=== PATIENT | female | born 1940 | race Caucasian/White ===

== ENCOUNTER → 2018-01-12 14:31 | Outpatient (CLI) | payer MEDICARE, SELFPAY ==
--- NOTE | 2018-01-12 14:32 | US_ITS ---
STUDY: SUPERFICIAL ULTRASOUND - LEFT CHEST LUMP REASON FOR EXAM: Female, 77 years old. Left chest lump region of mastectomy 40 years ago. TECHNIQUE: A superficial ultrasound was performed with real-time and static garcia-scale imaging. COMPARISON: None. FINDINGS: There is a subcutaneous soft tissue lesion measuring 0.3 x 0.2 x 0.3 cm. There is no evidence of underlying edema or visualized vascularity. US/Chest IMPRESSION: In the region of a incision line of the mastectomy for 40 years ago there is a subcutaneous lesion for which direct clinical observation should be made. Consider possible small sebaceous cyst. Given clinical history follow-up is suggested. Electronically Signed: Debora Stewart MD at 9:19 EDT Tel , Service support ,
== END ==
PROVIDERS: Family Provider Family Medicine; PCP Family Medicine; Visit Provider Nurse Practitioner Women's Health
DX: R22.2 Localized swelling, mass and lump, trunk (principal); Z85.3 Personal history of malignant neoplasm of breast; Z90.13 Acquired absence of bilateral breasts and nipples
CPT/HCPCS: 76604

== ENCOUNTER 2018-03-20 10:29 | Emergency (ER) | payer MEDICARE, SELFPAY ==
[2018-03-20 10:30] VITALS: BP 143/70; PULSE 94; RESP 16; TEMP 36.7; O2SAT 98; BMI 24.1
--- NOTE | 2018-03-20 10:50 | CT_ITS ---
STUDY: CT ABDOMEN AND PELVIS WITHOUT CONTRAST REASON FOR EXAM: Female, 77 years old. One week history of nausea. The patient has a history of breast carcinoma and omental metastasis. RADIATION DOSAGE (If Supplied By Facility): CTDIvol = ( 7.35 ) mGy, DLP = ( 334.22 ) mGycm TECHNIQUE: Transaxial images were obtained from the dome of the diaphragm to the symphysis pubis without oral contrast, and without intravenous contrast. Sagittal and coronal images were reconstructed. Individualized dose optimization techniques were used for this CT. COMPARISON: Comparison is made with prior study dated September 23, 2016. FINDINGS: The visualized lung bases are unremarkable. The visualized portions of the heart are within normal limits. Normal liver. The patient is status post cholecystectomy. Normal spleen. Normal pancreas. Normal bilateral adrenal glands. Stable appearance of a 3 mm calculus in the midportion of the right ureter at the level of the L5 vertebrae. Normal left kidney. There is a small hiatal hernia. Normal small intestine. There are multiple colonic diverticula consistent with diverticulosis. There is non-visualization of the appendix. There is diffuse atherosclerotic calcification of the abdominal aorta, without a demonstrated aneurysm. Normal inferior vena cava. Normal retroperitoneum. Normal urinary bladder. There is absence of the uterus consistent with a prior hysterectomy. Normal abdominal wall. There are diffuse degenerative changes of the visualized lumbar spine. Levoscoliosis. CT/Abdomen/Pelvis without Cont IMPRESSION: Biopsy September 3 mm calculus in the midportion of the right ureter. This is unchanged. Electronically Signed: Clif Peraza MD at 11:30 EDT Tel [phone], Service support ,
[2018-03-20 11:09] LABS: Absolute Lymphocyte Count 0.78 X10^3/ul (0.83-4.51); Basophil# 0.01 X10^3/uL; Basophil% 0.1 % (0-1); Eosinophil# 0.07 X10^3/uL; Eosinophils% 0.9 % (0-5); Hematocrit 40.2 % (37-47); Lymphocyte # 0.78 X10^3/ul (4.0); Lymphocyte % 10.4 % (19-41); Mean Corp Hgb Conc 32.3 g/gl (32-36); Mean Corpuscular Hgb 30.8 pg (27.0-32.0); Mean Corpuscular Volume 95.3 fL (81-99); Mean Platelet Vol. 8.8 fl (6.2-12.0); Monocyte# 0.56 X10^3/uL; Monocyte% 7.5 % (0-10); Neutrophil # 6.04 X10^3/uL (2.7-7.7); POSITIVE COUNT NO; POSITIVE DIFFERENTIAL NO; POSITIVE MORPHOLOGY NO; Platelet Count 197 K/mm3 (150-450); RBC Distribution Width CV 12.8 % (11.6-14.6); RBC Distribution Width SD 44.1 fl (35.1-43.9); Red Blood Count 4.22 M/mm3 (4.2-5.4); White Blood Count 7.5 K/mm3 (4.4-11.0)
[2018-03-20 11:13] LABS: Bacteria 0 SEEN /hpf (None Seen); Mucous, Urine 0 SEEN /hpf (<or=2+); White Blood Cells 0 SEEN /hpf (0-5)
[2018-03-20 11:16] LABS: Color, Urine Yellow (Yellow); Glucose, Dipstick Normal (Normal); Ketone-Dipstick Negative (Negative); Leukocyte Esterase-Dipstick 25 /ul (Negative); Nitrite-Dipstick Negative (Negative); Occult Blood-Urine 10 /ul (Negative); Protein-Dipstick Negative (Negative); Urine Bilirubin Dipstick Negative (Negative); Urine Clarity Clear (Clear); Urine Urobilinogen Normal (Normal)
[2018-03-20 11:22] LABS: Squamous Epithelial Cells - UA 0-5 SEEN /hpf (5-10)
[2018-03-20 11:23] LABS: ALB/GLOB Ratio 1.2 RATIO (0.9-2.4); AST(SGOT) 28 U/L (15-37); Alanine Aminotransfer ALT/SGPT 27 U/L (13-56); Albumin, Serum 4.1 g/dL (3.2-5.0); Alkaline Phosphatase 110 U/L (45-117); Anion Gap 8 (5-15); BUN 38 mg/dL (7-18); BUN/Creat Ratio 24.1 RATIO (10-20); Calcium,Total 9.5 mg/dL (8.5-10.1); Chloride 101 mmol/L (98-107); Creatinine, Serum 1.58 mg/dL (0.55-1.02); EST Glomerular Filtration Rate 34 mL/min (>60); Est Glom Filt Rate - Afr Amer 41 mL/min (>60); Estimated Creatinine Clearance 22.83 ml/min; Globulin 3.4 g/dL (2.2-4.2); Glucose 113 mg/dL (74-106); Potassium 4.4 mmol/L (3.5-5.1); Protein, Total 7.5 g/dL (6.4-8.2); Red Blood Cells-Urine 0-5 SEEN /hpf (0-5); Sodium Level 138 mmol/L (136-145)
--- NOTE | 2018-03-20 11:56 | ED.VISSUMM ---
- ER Visit Summary Date of Service: 03/20/18 Chief Complaint: Nausea History of Present Illness: The patient is a [address] Sandoval. She reports that she has nausea began approximately 1 week ago. Is gradually gotten worse. She has not vomited. She has not had diarrhea. Her last bowel was today and it was loose. She denies any abdominal pain. No dysuria or frequency. She reports that this is similar to 3 years ago when she had a small bowel obstruction. Physical Examination: Vitals: Stable. Afebrile. General: Well-nourished and well-developed. Head: Normocephalic atraumatic. Neck: Supple, no lymphadenopathy. No JVD. Nontender. Cardiovascular: Regular rate and rhythm. No murmurs. Respiratory: No respiratory distress. Clear to auscultation bilaterally. Abdominal: Soft, nontender, nondistended, normal bowel sounds. No guarding, rebound, or peritoneal signs. Back: Nontender. Extremities: Nontender, no edema. Skin: Normal color, no rash. Neurologic: Alert and oriented ?3. Cranial nerves II through XII are intact. Normal strength and sensation. Psych: Normal affect. Test Results: CT flank shows chronic changes. CBC is more for segment 4 is 81 on 610. Chem-7 is more for BUN of 38 and creatinine 1.58. Left is marked for total bili 1.10. UA is negative. Emergency Department Course and Treatment: Patient is resting comfortably without complaint. She refused nausea medication. Treatment Plan: Patient be discharged with Zofran. Instructed follow-up Dr. Sandoval in 3-5 days not improving. Return to the emergency department for any worsening symptoms. Disposition: To home in improved and stable condition. Impression: 1. Nausea. This note was generated with Smule dictation software. It may contain incorrect words, spelling, and punctuation that were not noted in review of the chart prior to signing ED Disposition - Plan for ED Patient: Disposition: Home or Assisted Living Chief Complaint: Nausea/Vomiting Instructions: ED Nausea Vomiting Prescriptions: Ondansetron [Zofran Odt] 4 mg PO Q8H PRN PRN #10 tablet PRN Reason: Nausea Referrals: Julius Sandoval MD [Primary Care Provider] - 3-5 Days if not improving
[2018-03-20 12:07] VITALS: BP 109/57; PULSE 77; RESP 18; O2SAT 98
== END 2018-03-20 12:07 | disposition home or self-care (01) ==
PROVIDERS: Emergency Provider Emergency Medicine; Family Provider Family Medicine; PCP Family Medicine
DX: R11.0 Nausea (principal); J45.909 Unspecified asthma, uncomplicated; I10 Essential (primary) hypertension; I50.9 Heart failure, unspecified; Z86.73 Personal history of transient ischemic attack (TIA), and cerebral infarction without residual deficits; Z85.42 Personal history of malignant neoplasm of other parts of uterus; Z85.3 Personal history of malignant neoplasm of breast
CPT/HCPCS: 74176; 80053; 81001; 85025; 99283; A4216

== ENCOUNTER → 2018-07-23 17:02 | Outpatient (CLI) | payer MEDICARE, SELFPAY | PROVIDERS: Family Provider Family Medicine; PCP Family Medicine; Referring Provider Obstetrics & Gynecology; Visit Provider Obstetrics & Gynecology | DX: R35.0 Frequency of micturition (principal) | CPT/HCPCS: 87077; 87086; 87088; 87186 ==

== ENCOUNTER 2019-07-15 11:20 | Day surgery (SDC) | payer MEDICARE, SELFPAY ==
--- NOTE | 2019-06-13 07:47 | HP.PCM_ITS ---
History and Physical Date of Admission: 06/17/19 HISTORY AND PHYSICAL ? Ruth Calvert 1940 ? REFERRING PHYSICIAN: ??Self, MD ? CHIEF COMPLAINT: ??Established Patient (Consult Fecal incontinence) ? HPI: The patient is a 78 year old female referred for endoscopy. ? notes a few days ago she had an episode of passing a large amount of mucous and stool from the rectum, and loss of stool control.???She does note that she is lactose intolerant, and prior to this episode she had ingested buttermilk, milk gravy, as well as several plums, tomatoes and peaches. ?She states over the last few days she has not had any more episodes of incontinence. ? ? Patient notes family history of GI malignancy.??The patient notes no upper GI co mplaints?currently. ? has??undergone prior endoscopy in [address] Latham without concerning findings at that time. ? Patient's past medical history is significant for TIA, essential tremor, hype rtension, congestive heart failure, mesenteric ischemia, Takotsubo cardiomyopathy, hiatal hernia, asthma, chronic kidney disease, history breast cancer, history skin cancer, history uterine cancer. ?She has had multiple abdominal surgeries. ?Denies problems with sedation in the past. ? ? PAST?MEDICAL?HISTORY PAST MEDICAL HISTORY Diagnosis Date ? Asthma ? ? CKD (chronic kidney disease) stage 3, GFR 30-59 ml/min (HCC) ? ? Congestive heart failure, unspecified 2002 ? Cardiology [facility] ? Diverticulosis of sigmoid ? ? External hemorrhoids without mention of complication ? ? Family history of malignant neoplasm of gastrointestinal tract ? ? Gastric polyps ? ? Gout ? ? Hiatal hernia ? ? History of breast cancer ? ? History of skin cancer ? ? History of uterine cancer ? ? cervical ? Internal hemorrhoids without mention of complication ? ? Iron deficiency anemia ? ? Osteopenia ? ? Restrictive cardiomyopathy (HCC) ? ? TIA (transient ischemic attack) ? ? right eye vision changes, carotid US reported as NL ? Unspecified essential hypertension since age 28 ? ? PAST?SURGICAL?HISTORY PAST SURGICAL HISTORY Procedure Laterality Date ? APPENDECTOMY ? ? ? CARDIAC CATH ? ? ? X--3 ? CATARACT EXT; EYEONICS IOL SYS ? ? ? COLONOSCOP W/ OR W/O [facility] SPEC ? [facility] 2007 ? Colonoscopy ? COLONOSCOP W/ OR W/O [facility] SPEC ? 06/23/11 ? COLONOSCOP W/ OR W/O [facility] SPEC ? 06/08/16 ? Colonoscopy (MAC) ? D&C, DIAG AND/OR THERAPEUTIC ? five ? Dilation & curettage ? DXA BONE DENSITY, AXIAL ? ? ? MASTECTOMY, RADICAL ? 1978 ? double ? REMOVAL GALLBLADDER ? 1983 ? REMOVAL OF OVARY(S) ? 1984 ? Oophorectomy ? REPAIR COMPL ROTATOR CUFF AVULSN,CHR ? 2003 ? right ? REPAIR OF RECTOCELE ? 1978 ? SMALL BOWEL ? 03/2015 ? MESENTERIC ISCHEMIA ? TOTAL ABDOM HYSTERECTOMY ? ? ? Hysterectomy, RAFIA ? VAGINAL HYSTERECTOMY ? 1967 ? Hysterectomy, vaginal? ? ? CURRENT?MEDICATIONS ? Current Outpatient Medications: predniSONE (DELTASONE) 10 mg tablet Take 4 tabs daily for 3 days, then 2 tabs daily for 3 days, then 1 tab daily for 3 days with food. Omeprazole 40 mg capsule Take 1 capsule by mouth once daily. (Patient taking differently: Take 40 mg by mouth twice a week. ) albuterol (PROVENTIL) 2.5 mg /3 mL (0.083 %) nebulizer solution Use 3 mL via nebulizer every 6 hours as needed for Wheezing/Shortness of Breath. Use over 5-15minutes. allopurinol (ZYLOPRIM) 100 mg tablet Take 2 tablets by mouth once daily. budesonide-formoterol (SYMBICORT) 160-4.5 mcg/actuation inhaler Inhale 2 Puffs as instructed twice daily. montelukast (SINGULAIR) 10 mg tablet Take 1 tablet by mouth daily at bedtime. losartan (COZAAR) 25 mg tablet Take 0.5 tablets by mouth once daily. spironolactone (ALDACTONE) 25 mg tablet Take 1 tablet by mouth twice daily. nitrofurantoin monohydrate and macrocrystal (MACROBID) 100 mg capsule Take 100 mg by mouth once daily. PRN. torsemide (DEMADEX) 10 mg tablet Take 10 mg by mouth once daily. aspirin, enteric coated (ECOTRIN LOW STRENGTH) 81 mg ORAL EC tablet Take 1 tablet by mouth once daily. dipyridamole(PERSANTINE 75 MG TAB) Take one(1) tablet two(2) times daily. albuterol (PROVENTIL) 2.5 mg /3 mL (0.083 %) nebulizer solution Use 3 mL via nebulizer every 4 hours as needed for Wheezing/Shortness of Breath. Use over 5-15minutes. zoster vaccine, recombinant, adjuvanted, (SHINGRIX) 50 mcg/0.5 mL injection Inject 0.5 mL intramuscularly now and repeat 2nd dose in 2-6 months albuterol HFA (VENTOLIN HFA) 90 mcg/actuation inhaler Inhale 2 Puffs as instructed every 4 hours as needed for Wheezing/Shortness of Breath. ? No current facility-administered medications for this visit.? ? ALLERGIES:?Benadryl [Diphenhydramine Hcl]; Sulfur Dioxide; Talwin [Pentazocine Lactate]; Valium [Diazepam]; Advair Diskus [Fluticasone Propion-Salmeterol]; Penicillins; Sulfa (Sulfonamide Antibiotics); Adhesive Tape (Rosins); Biaxin [Clarithromycin] ? PERSONAL HISTORY:? SOCIAL?HISTORY Social History ??Socioeconomic History ?Marital status: ?Spouse name: Russell ?Number of children: 3 ?Years of education: Not on file ?Highest education level: Not on file ??Occupational History ?Employer: [employer] ?Comment: Retired ??Social Needs ?Financial resource strain: Not on file ?Food insecurity: ?Worry: Not on file ?Inability: Not on file ?Transportation needs: ?Medical: Not on file ?Non-medical: Not on file ??Tobacco Use ?Smoking status: Never Smoker ?Smokeless tobacco: Never Used ??Substance and Sexual Activity ?Alcohol use: No ?Drug use: No ?Sexual activity: Yes ?Partners: Male ??Lifestyle ?Physical activity: ?Days per week: Not on file ?Minutes per session: Not on file ?Stress: Not on file ??Relationships ?Social connections: ?Talks on phone: Not on file ?Gets together: Not on file ?Attends taoism service: Not on file ?Active member of club or organization: Not on file ?Attends meetings of clubs or organizations: Not on file ?Relationship status: Not on file ?Intimate partner violence: ?Fear of current or ex partner: Not on file ?Emotionally abused: Not on file ?Physically abused: Not on file ?Forced sexual activity: Not on file ??Other Topics ?Concerns: ?Not on file ??Social History Narrative ?3 children ?Lives [place] ?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 FAMILY HISTORY:? FAMILY?HISTORY FAMILY HISTORY Problem Relation Age of Onset ? Cancer Mother ?throat, stomach, colon age 69 ? unclear primary by description ? Thyroid Mother ? ? Heart Father ? age 57 ? Hypertension Father ? ? Stroke Paternal Grandfather ? ? Stroke Paternal Grandmother ? ? Diabetes Brother ? ? Coronary Artery Disease Maternal Grandfather ? ? Cancer Maternal Grandmother ?pancreatic ? REVIEW OF SYMPTOMS: ??The review of systems data was entered by the nurse and reviewed by me ? Nursing Notes: Shaheen Nichols ?06/03/2019 ?2:58 PM ?Signed REVIEW OF SYSTEMS: ?General:???The patient denies fatigue, denies weight loss, denies weight gain, denies feeling hot, and denies feelings of cold. ?Eyes: ?The patient denies glaucoma, NOTES eye injury/surgery, wears glasses or contacts. ?Ear/Nose/Throat: ?The patient NOTES allergies, denies hayfever, denies ear infections, and denies bloody noses. ?Cardiovascular: ?The patient denies chest pain, NOTES heart disease, NOTES high blood pressure,denies cardiac stent, denies prior heart attack, denies irregular heart beat, denies high cholesterol, ?denies poor circulation, denies heart failure, other cardiac issues, denies claudication, denies cold feet, denies peripheral arterial stent. ?Respiratory: ?The patient denies tuberculosis, NOTES pneumonia, denies frequent cough, denies pulmonary embolism, NOTES shortness of breath, and denies coughing up blood. ?Gastrointestinal: ?The patient denies difficulty swallowing, NOTES acid reflux, denies ulcers, denies vomiting, denies jaundice/hepatitis, denies gallbladder problems, denies black or tarry stools, denies hemorrhoids, denies bleeding from rectum, denies diverticulitis, denies constipation, denies diarrhea, NOTES loss of stool control, and denies hernias. ?Kidney/Bladder: ?The patient NOTES kidney stones, denies urine infections, and denies bloody urine. ?Skin: ?The patient NOTES a history of skin cancer, denies bleeding/changing moles, and denies a history of skin rash. ?Neurologic: ?The patient denies a history of epilepsy/convulsions, denies headaches, denies head/spinal injuries, and NOTES stroke/TIA. ?Psychiatric: ?The patient denies psychiatric medications, denies depression, and denies voices, denies substance abuse. ?Endocrine: ?The patient denies thyroid disorders, denies diabetes, and denies hormonal problems. ?Hematologic: ?The patient NOTES a history of bruising, denies bleeding, and denies anemia, denies blood clots. ?Infections: ?The patient NOTES a history of measles and mumps, denies rheumatic fever, and denies sexually transmitted diseases. ?Musculoskeletal: ?The patient denies back pain/injury, denies back problems, denies sciatica, NOTES knee/foot trouble, NOTES arthritis, or NOTES gout. ? ? When was patient's last Mammogram screening? Not known ? ?Last Colonoscopy: ? Shaheen Ncihols? I have confirmed and edited as necessary, the PFSH and ROS obtained by others. ? PHYSICAL EXAMINATION: ? General: ?The patient is 78 year old female, well nourished, well hydrated in no acute distress. ?The patient is oriented to time, place, and person. ? VITALS:?Blood pressure 136/52, pulse 101, temperature 36.4 ?C (97.6 ?F), height 154.9 cm (5' 1), weight 63.1 kg (139 lb 3.2 oz), SpO2 99 %.?Body mass index is 26.3 kg/m?.? ? HEENT: ?Normal cephalic, ataumatic, pupils are equally round, sclera are anicteric, mucous membranes are moist, oropharynx is clear. ?Neck has no masses, asymmetry or lymphadenopathy. ? ? Respiratory: ?Clear to auscultation and percussion. ?Normal respiratory excursion and pattern. ? Cardiac: ?Examination is regular rate and rhythm. ?Normal S1/S2 ? Abdominal exam: ?Soft, nontender, ?with no palpable masses. ?No hepatosplenomegaly. ?No palpable hernias. ? Extremities: ?no clubbing, cyanosis or edema. ?No adenopathy. ? LABORATORY VALUES: As Noted ? RADIOLOGIC STUDIES: ?As Noted ? ? Assessment ? IMPRESSION:?episode of fecal incontinence and mucus in stool. ?Family history of GI malignancy ? PLAN: ?I have reviewed my findings with the surgeon. ?Will plan for lower?endoscopy. ??We discussed the risks and benefits of the planned endoscopy. ?I have informed the patient that complications can occur including failure to complete the endoscopy and perforation. ?The patient had the opportunity to ask questions concerning the planned endoscopy. ?My staff has also explained the procedure to the patient in understandable terms and has given the patient printed material concerning the procedure. ?The patient freely consents to surgery. ? I plan to use?Miralax/Dulcolax?bowel preparation ? We will plan for Monitored Anesthetic Care. ? ? Diagnoses:?(R15.9, ?R15.2) Incontinence of feces with fecal urgency ?(primary encounter diagnosis) (R19.5) Mucus in stool (Z80.0) Family history of colon cancer ? ? Angelina Dunne PA-C
[2019-07-15 11:45] VITALS: BP 114/51; PULSE 76; RESP 18; TEMP 37.1; O2SAT 99; BMI 26.4
[2019-07-15] MEDS: Lactated Ringers 1,000 ML 100 ML IV (12:22)
[2019-07-15 14:01] VITALS: BP 109/49; BP 114/51; PULSE 72; RESP 16; TEMP 36.4; O2SAT 100
--- NOTE | 2019-07-15 14:04 | OP.ENDO_ITS ---
07/15/2019 Julius Sandoval [address] [place] [address] Re : Colonoscopy procedure for Ruth Changig Dear Dr. Sandoval This procedure was performed on Monday, July 15, 2019. My impressions and recommendations are as follows: Impressions : - Diverticulosis in the sigmoid colon. - Non-bleeding internal hemorrhoids. - No specimens collected. Recommendations : - Return to primary care physician PRN. - No repeat colonoscopy due to age. - Continue present medications. My findings are described in the full procedure note, which is enclosed. If I can be of further assistance, please feel free to contact me at Doctor phone number(s): , Work: . Sincerely, MD Nancy Wilson MD 07/15/2019 2:04:34 PM This report has been signed electronically.
[2019-07-15 14:05] VITALS: BP 106/42; BP 114/51; PULSE 74; RESP 16; O2SAT 100
[2019-07-15 14:10] VITALS: BP 111/46; BP 114/51; PULSE 72; RESP 16; O2SAT 100
[2019-07-15 14:14] VITALS: BP 113/41; BP 114/51; PULSE 72; RESP 16; TEMP 36.4; O2SAT 100
[2019-07-15 14:15] VITALS: BP 114/51
== END 2019-07-15 14:40 | disposition home or self-care (01) ==
LOC: EN 11:21 → AC 11:25
PROVIDERS: Family Provider Family Medicine; PCP Family Medicine; Referring Provider Surgery; Visit Provider Surgery
PROC: 0DJD8ZZ Inspection of Lower Intestinal Tract, Via Natural or Artificial Opening Endoscopic (ICD-10-PCS; CPT 45378; principal; 2019-07-15 12:40)
DX: K57.30 Diverticulosis of large intestine without perforation or abscess without bleeding (principal); R15.9 Full incontinence of feces; R19.5 Other fecal abnormalities; Z80.0 Family history of malignant neoplasm of digestive organs; R15.2 Fecal urgency; K64.8 Other hemorrhoids; Z86.73 Personal history of transient ischemic attack (TIA), and cerebral infarction without residual deficits; I10 Essential (primary) hypertension; I13.0 Hypertensive heart and chronic kidney disease with heart failure and stage 1 through stage 4 chronic kidney disease, or unspecified chronic kidney disease; E11.22 Type 2 diabetes mellitus with diabetic chronic kidney disease; E11.36 Type 2 diabetes mellitus with diabetic cataract; I25.10 Atherosclerotic heart disease of native coronary artery without angina pectoris; I50.9 Heart failure, unspecified; J45.909 Unspecified asthma, uncomplicated; N18.3 Chronic kidney disease, stage 3 (moderate); Z85.3 Personal history of malignant neoplasm of breast; Z85.42 Personal history of malignant neoplasm of other parts of uterus; Z88.2 Allergy status to sulfonamides; Z88.0 Allergy status to penicillin; Z88.8 Allergy status to other drugs, medicaments and biological substances; Z85.828 Personal history of other malignant neoplasm of skin; Z79.82 Long term (current) use of aspirin
CPT/HCPCS: 45378; J7050; J7120; J2405

== ENCOUNTER 2019-08-07 12:16 | Emergency (ER) | payer MEDICARE, SELFPAY ==
[2019-07-25 11:38] VITALS: BMI 26.6
[2019-08-07 12:17] VITALS: BP 129/68; PULSE 82; RESP 17; TEMP 35.7; O2SAT 99; BMI 25.9
--- NOTE | 2019-08-07 13:11 | ED.DCSUM_ITS ---
- ER Visit Summary Date of Service: 08/07/19 Chief Complaint: Left flank pain with nausea History of Present Illness: The patient is a 78 F stroke, CA, hypertension, renal insufficiency, breast CA and bladder stones. Prior hysterectomy and cholecystectomy. Prior bowel perforation with partial resection. Patient states that around 130 this morning she got left lower flank pain associated with nausea but no vomiting or diarrhea. Also chills. Denies any dysuria or hematuria. States she is actually feeling somewhat better now. Physical Examination: Older female no acute distress companied by her . Vital signs are stable and afebrile. She does not look septic or toxic. She does not look dehydrated. H EENT exam unremarkable. Moist with membranes. Neck nontender no lymphadenopathy. Lungs clear to auscultation bilaterally. Heart regular rhythm no murmur. Abdomen is soft. Nondistended normal bowel sounds. No peritoneal signs. Minimal left lower quadrant tenderness. No hernias or masses. No signs of obstruction. No pulsatile mass. Both the right upper or right lower quadrants are unremarkable. Neurologically she is awake and alert with no focal motor deficits. Skin is unremarkable. Back is nontender. Test Results: CBC normal white count of 7 hemoglobin 13. No bands. Chemistries normal. BUN 37 creatinine 1.2. UA 5-10 white cells no reds no nitrates and only rare bacteria culture was sent but this I would not treat as a UTI and she is not having symptoms. CT abdomen pelvis with IV contrast shows no acute abnormality as read by the radiologist and reviewed by me. There is diverticulosis but no acute diverticulitis. No other acute intra-abdominal pathology. Emergency Department Course and Treatment: Female with left flank pain with nauseous feeling better. This may be viral syndrome. We will do screening labs and check a UA. Her abdominal exam is only mildly tender. Exam she was doing well. She still had some mild left lower quadrant abdominal tenderness. For that reason a CAT scan was obtained which showed no specific etiology of this pain. Treatment Plan: Discharged home. Follow-up with her primary care physician. Tylenol for pain. Disposition: Discharge Impression: Acute left Flank pain of uncertain etiology Nausea This note was generated with OpenROVation software. It may contain incorrect words, spelling, and punctuation that were not noted in review of the chart prior to signing ED Disposition - Plan for ED Patient: Referrals: Julius Sandoval MD [Primary Care Provider] -
[2019-08-07] MEDS: 0.9% Normal Saline 1,000 ML 1000 ML IV (13:34)
[2019-08-07 13:38] LABS: Absolute Lymphocyte Count 0.85 X10^3/uL (0.83-4.51); Absolute Neutrophil Count 5.8 X10^3/uL (2.0-7.7); Basophil# 0.02 X10^3/uL; Basophil% 0.3 % (0-1); Eosinophil# 0.07 X10^3/uL; Hematocrit 40.9 % (37-47); Lymphocyte # 0.85 X10^3/ul (4.0); Lymphocyte % 11.7 % (19-41); Mean Corp Hgb Conc 31.8 g/dL (32-36); Mean Corpuscular Hgb 31.8 pg (27.0-32.0); Mean Platelet Vol. 8.9 fl (6.2-12.0); Monocyte% 6.9 % (0-10); NRBC Flagged by Analyzer 0 % (0-5); Neutrophil # 5.81 X10^3/uL (2.7-7.7); Neutrophil % 79.8 % (47-70); Platelet Count 250 K/mm3 (150-450); RBC Distribution Width CV 12.3 % (11.6-14.6); RBC Distribution Width SD 45.6 fl (35.1-43.9); Red Blood Count 4.09 M/mm3 (4.2-5.4); White Blood Count 7.3 K/mm3 (4.4-11.0)
[2019-08-07 13:40] LABS: Mucous, Urine 0 SEEN /hpf (<or=2+)
[2019-08-07 13:42] LABS: Color, Urine Yellow (Yellow); Glucose, Dipstick Normal (Normal); Ketone-Dipstick Negative (Negative); Leukocyte Esterase-Dipstick 500 /ul (Negative); Nitrite-Dipstick Negative (Negative); Occult Blood-Urine 25 /ul (Negative); Protein-Dipstick Negative (Negative); Urine Bilirubin Dipstick Negative (Negative); Urine Clarity Sl. Cloudy (Clear); Urine Urobilinogen Normal (Normal)
[2019-08-07 13:49] LABS: Anion Gap 5 (5-15); BUN 37 mg/dL (7-18); BUN/Creat Ratio 29.8 RATIO (10-20); Calcium,Total 9.3 mg/dL (8.5-10.1); Chloride 107 mmol/L (98-107); Creatinine, Serum 1.24 mg/dL (0.55-1.02); EST Glomerular Filtration Rate 44 mL/min (>60); Est Glom Filt Rate - Afr Amer 53 mL/min (>60); Estimated Creatinine Clearance 27.31 ml/min; Glucose 96 mg/dL (74-106); Potassium 4.5 mmol/L (3.5-5.1); Sodium Level 141 mmol/L (136-145)
[2019-08-07 13:49] LABS: Bacteria RARE /hpf (None Seen); Red Blood Cells-Urine 0-5 SEEN /hpf (0-5); Squamous Epithelial Cells - UA 0-5 SEEN /hpf (5-10); White Blood Cells 5-10 SEEN /hpf (0-5)
--- NOTE | 2019-08-07 16:27 | CT_ITS ---
STUDY: CT ABDOMEN AND PELVIS WITH CONTRAST REASON FOR EXAM: Female, 78 years old. Abdominal pain RADIATION DOSAGE (If Supplied By Facility): CTDIvol = ( 10.51 ) mGy, DLP = ( 496.48 ) mGycm TECHNIQUE: Transaxial images were obtained from the dome of the diaphragm to the symphysis pubis without oral contrast. IV Isovue 300 100 was administered. Sagittal and coronal images were reconstructed. Individualized dose optimization techniques were used for this CT. COMPARISON: None. FINDINGS: The visualized lung bases are unremarkable. The visualized portions of the heart are within normal limits. Mild periportal edema. There is non-visualization of the gallbladder, which may be secondary to either contraction or a prior cholecystectomy. Normal spleen. Normal pancreas. Normal bilateral adrenal glands. Normal right kidney. Unremarkable left kidney. 11 mm left pole cyst. There is a small hiatal hernia. Normal small intestine. There are multiple colonic diverticula consistent with diverticulosis. There is non-visualization of the appendix. There is diffuse atherosclerotic calcification of the abdominal aorta with elongation and tortuosity, but without a demonstrated aneurysm. Normal inferior vena cava. Normal retroperitoneum. Normal urinary bladder. Normal abdominal wall. There are diffuse degenerative changes of the visualized lumbar spine. CT/Abdomen/Pelvis W IV Cont ONLY IMPRESSION: No acute intra-abdominal process is identified. Electronically Signed: Russel Inman, at 17:27 EST Tel , Service support ,
[2019-08-07 16:30] VITALS: RESP 17
--- NOTE | 2019-08-07 17:44 | ED.DEP ---
ED Disposition - Plan for ED Patient: Disposition: Home or Assisted Living Instructions: FLANK PAIN, Uncertain Cause Prescriptions: Ondansetron [Zofran Odt] 4 mg PO Q8H PRN PRN #10 tab PRN Reason: Nausea Prescription Printed Referrals: Julius Sandoval MD [Primary Care Provider] - 3-5 Days if not improving Additional Instructions: And off for pain. Zofran as needed if nauseated. Follow-up with your doctor if not improving. All of your tests today were basically unremarkable. Your urine did not show any obvious infection. A urine culture was sent if that would prove to show any infection we would contact you.
[2019-08-07 18:00] VITALS: BP 117/85; PULSE 70; RESP 14
== END 2019-08-07 18:01 | disposition home or self-care (01) ==
PROVIDERS: Emergency Provider Emergency Medicine; Family Provider Family Medicine; PCP Family Medicine
DX: R10.9 Unspecified abdominal pain (principal); R11.0 Nausea; I10 Essential (primary) hypertension; I25.2 Old myocardial infarction; Z86.73 Personal history of transient ischemic attack (TIA), and cerebral infarction without residual deficits; Z85.3 Personal history of malignant neoplasm of breast; Z87.442 Personal history of urinary calculi; Z90.49 Acquired absence of other specified parts of digestive tract; K57.90 Diverticulosis of intestine, part unspecified, without perforation or abscess without bleeding; Z90.710 Acquired absence of both cervix and uterus
CPT/HCPCS: 74177; 80048; 81001; 85025; 87086; 87088; 96360; 99283; J7030; Q9967

== ENCOUNTER 2019-09-26 14:39 | Emergency (ER) | payer MEDICARE, SELFPAY ==
[2019-09-26 14:40] VITALS: BP 134/67; PULSE 70; RESP 16; TEMP 36.6; O2SAT 99; BMI 25.8
[2019-09-26 14:51] VITALS: BP 134/78; TEMP 36.6
--- NOTE | 2019-09-26 15:21 | VDLE_ITS ---
Reason For Study: Pain RIGHT LEFT CFV is compressible, spontaneous, phasic, GSV is normal. competent and demonstrates normal CFV is compressible, spontaneous, phasic, augmentation. competent, and demonstrates normal Procedure augmentation. Exam performed portable in ED. FV is compressible, spontaneous, phasic, A preliminary report was called and/or faxed competent and demonstrates normal to Nupur. augmentation. POP V is compressible, spontaneous, phasic, competent and demonstrates normal augmentation. T/P Trunk is compressible. PTV is compressible. LT PerV is compressible. Interpretation Summary There is no evidence of left lower extremity deep vein thrombosis. Left great saphenous vein appears patent and compressible segmentally. Patent and compressible right common femoral vein Ordering Physician: Martin Espitia Referring Physician: MD Lori Julius Performed By: Ayla Gee RVT
--- NOTE | 2019-09-26 15:45 | RAD_ITS ---
STUDY: X-RAY - LEFT KNEE REASON FOR EXAM: Female, 78 years old. LEFT KNEE PAIN X 1 MONTH TECHNIQUE: 4 view(s) of the knee. COMPARISON: None. FINDINGS: Normal visualized distal femur. Normal visualized proximal tibia and fibula. Normal proximal tibiofibular articulation. Normal medial femorotibial compartment. Normal lateral femorotibial compartment. Normal patellofemoral articulation. The soft tissue structures are unremarkable. RAD/Knee 4 or More Views IMPRESSION: Normal x-ray examination of the knee. Electronically Signed: Clif Peraza, at 16:00 EST , Service support ,
--- NOTE | 2019-09-26 16:12 | ED.DCSUM_ITS ---
History of Present Illness Chief Complaint: Edema Informant: Patient Onset: Month(s) - 1 Context: Gradual Onset Timing: Continuous Quality of Pain: Aching Location: left knee Current Severity: Moderate Maximum Severity: Severe Worsened by: walking/WBing; bending Relieved by: rest Associated Symptoms: Negative for: Parasthesia, Weakness, Loss of Funtion Narrative: Patient has had pain in her left knee for a month. It was really severe but now it is not as bad but still hurting. States that she had the same pain in the right knee at one point, it had been bothering her for 6 weeks when she saw Dr. Trevino with orthopedics, and was told it was probably gout which she has had another joints in the past. There is no fluid drawn from the knee at that time. Also in the last month she has had pain shooting down into her left calf, and that part resembled pain she had with a DVT 4 to 5 years ago. She has been off anticoagulants for some time. She denies any injury. - Past Medical History (1) Asthma Status: Chronic (2) CAD (coronary artery disease) Status: Chronic (3) Congestive heart failure Status: Chronic (4) GERD (gastroesophageal reflux disease) Status: Chronic (5) Hypertension Status: Chronic Past Medical History - Allergies and Home Meds Allergies/Adverse Reactions: Allergies clarithromycin [From Biaxin] Allergy (Verified 09/26/19 14:42) Fever and skin rash diazepam [From Valium] Allergy (Verified 09/26/19 14:42) Other SEIZURES diphenhydramine HCl [From Benadryl] Allergy (Verified 09/26/19 14:42) Unknown esomeprazole magnesium [From Nexium] Allergy (Verified 09/26/19 14:42) Unknown NSAIDS (Non-Steroidal Anti-Inflamma Allergy (Verified 09/26/19 14:42) Other CKD STAGE 4 Penicillins Allergy (Verified 09/26/19 14:42) Unknown pentazocine lactate [From Talwin] Allergy (Verified 09/26/19 14:42) Unknown Sulfa (Sulfonamide Antibiotics) Allergy (Verified 09/26/19 14:42) Unknown sulfur dioxide Allergy (Verified 09/26/19 14:42) Unknown Primary Care Physician: Martin Trevino MD [STAFF PHYSICIAN] - 1 Week if not improving Julius Sandoval MD [Primary Care Provider] - Surgical History: - - Bowel resection for ischemic bowel Lives: Spouse/ Significant Other Smoking Status: Never smoker - Family History Maternal Family History: Family History (Last Reviewed 07/25/19 @ 11:34 by Amina Tipton) Mother Cancer Thyroid disorder Father Heart disease Family History: Reports: No pertinent history Paternal Family History: Family History (Last Reviewed 07/25/19 @ 11:34 by Amina Tipton) Mother Cancer Thyroid disorder Father Heart disease Family History: Reports: No pertinent history Review of Systems General: Denies: Chills, Fever, Sweats Cardiovascular: Denies: Chest pain, Palpitations Respiratory: Denies: Dyspnea, Cough Musculoskeletal: Reports: Extremity Pain. Denies: Neck pain, Back pain, Swel ling Neurological: Denies: Headache, Weakness, Numbness Physical Exam Vital Signs/Narrative: Vital Signs Temp Pulse Resp BP Pulse Ox 09/26/19 14:51 97.8 F 134/78 H 09/26/19 14:40 97.8 F 70 16 134/67 H 99 Inital Vital Signs reviewed: Yes - Extremity Exam Left Knee: Limited ROM - Only at extreme of flexion. Excellent range of motion otherwise including full extension., - - No effusion. All ligaments stable, no pain or laxity with stressing including negative posterior drawer and Lockman. Tenderness at the Pes anserine bursa but does not hurt there with bending knee against resistance. No excessive warmth or erythema in the knee region. No rash or lesions. No popliteal tenderness. Mild calf tenderness, no palpable cords, no asymmetry/edema dependently. General: Well nourished, Well developed, - - nad Head: Normocephalic, Atraumatic Eyes: Perrl, EOMI Skin: Normal color, No rash, No Trauma Neurological: Alert, Oriented x3, Cranial nerves II-XII grossly intact, Normal Strength, Normal Sensation Psychological: Normal affect, Normal Mood Diagnostic/Tx/Re-eval Clinical Impression(s) from Imaging Studies Knee X-Ray 09/26/19 15:45 IMPRESSION: Normal x-ray examination of the knee. Electronically Signed: Clif Peraza, at 16:00 EST , Service support , - Medical Decision Making Ultrasound of the left lower extremity was obtained and is negative for any DVTs. X-rays were also obtained of the knee and they are negative. She does not have a history of rheumatoid arthritis, she initially suggested that she has pain in the mornings that loosens up as she goes long and then she switched the history to opposite that and said that the more she walked on it the more it hurt. She has been able to get around on it. She denies any systemic symptoms or fevers or thoracic symptoms. I offered her a short course of prednisone, she was reluctant to take it because she said I do not want it if I do not need it. Certainly do not think it is required for any life-threatening or limb threatening problems here, but we discussed that it may help her pain. I think just trying a 5-day course would be reasonable if she wishes. Given her excellent range of motion, lack of warmth and erythema, my suspicion for gout/crystal induced arthritis is very low. However it could be osteoarthritis, anserine bursitis, or other inflammatory conditions of the knee. I do not suspect acute infection here so I think that the risk of prednisone is relatively low especially with only 5 days for right now. Patient was not sure if she wanted to take it or not. We discussed risks and benefits at the bedside at length. I did not start her on a here in the ER, but the prescription was called in and in shared decision-making, she is able to make the choice for herself prior to following up, or waiting until she does follow-up. ED Disposition - Plan for ED Patient: Disposition: Home or Assisted Living Diagnosis: Left knee pain, Pain in left lower leg Instructions: Bursitis, KNEE PAIN, Uncertain Cause Prescriptions: Prednisone [Deltasone] 40 mg PO DAILY #10 tab Transmission Status: Received by [id number] Referrals: Julius Sandoval MD [Primary Care Provider] - Martin Trevino MD [STAFF PHYSICIAN] - 1 Week if not improving
== END 2019-09-26 16:26 | disposition home or self-care (01) ==
PROVIDERS: Emergency Provider Emergency Medicine; Family Provider Family Medicine; PCP Family Medicine
DX: M79.662 Pain in left lower leg (principal); M25.562 Pain in left knee; J45.909 Unspecified asthma, uncomplicated; I25.10 Atherosclerotic heart disease of native coronary artery without angina pectoris; I11.0 Hypertensive heart disease with heart failure; I50.9 Heart failure, unspecified; K21.9 Gastro-esophageal reflux disease without esophagitis; Z79.51 Long term (current) use of inhaled steroids; Z79.82 Long term (current) use of aspirin; Z79.899 Other long term (current) drug therapy
CPT/HCPCS: 73564; 93971; 99282

== ENCOUNTER 2019-10-15 18:27 | Inpatient (IN) | payer MEDICARE, SELFPAY ==
[2019-10-15 18:28] VITALS: BP 125/59; PULSE 95; RESP 18; TEMP 37.3; O2SAT 98; BMI 24.7
--- NOTE | 2019-10-15 19:12 | CT_ITS ---
STUDY: CT ABDOMEN AND PELVIS WITHOUT CONTRAST REASON FOR EXAM: Female, 78 years old. ABD PAIN, N/V, FEVER SINCE THIS AM, HX BOWEL OBSTRUCTION WITH SX SEVERAL YEARS AGO, HTN, STROKE, CHF, ASTHMA, CAD RADIATION DOSAGE (If Supplied By Facility): CTDIvol = ( 6.75 ) mGy, DLP = ( 272.97 ) mGycm TECHNIQUE: Transaxial images were obtained from the dome of the diaphragm to the symphysis pubis without oral contrast, and without intravenous contrast. Sagittal and coronal images were reconstructed. Individualized dose optimization techniques were used for this CT. COMPARISON: August 07, 2019 FINDINGS: The visualized lung bases are unremarkable. The visualized portions of the heart are within normal limits. Small hiatal hernia is noted. Normal liver. Gallbladder not visualized suggestive of prior cholecystectomy although there are no surgical clips visualized. Clinical correlation recommended. Normal spleen. Normal pancreas. Normal bilateral adrenal glands. No evidence for renal obstruction or ureteral calculus. There is a small left renal cyst Normal visualized stomach. There are multiple distended loops of fluid-filled small bowel with air-fluid levels and fecalization with a transition point to more normal caliber distal small bowel which may be consistent with partial small bowel obstruction. Diverticular changes in the sigmoid colon without evidence for acute diverticulitis. Appendix not visualized which may be consistent with prior appendectomy. Atherosclerotic changes of the aorta without evidence for aneurysm.. Normal inferior vena cava. Normal retroperitoneum. Normal urinary bladder. Uterus not visualized consistent with hysterectomy. Normal abdominal wall. Lumbar spine demonstrates advanced degenerative change CT/Abdomen/Pelvis without Cont IMPRESSION: Findings consistent with partial mid-distal small bowel obstruction Status post cholecystectomy hysterectomy and probable appendectomy Other findings as above Electronically Signed: Ronni King MD at 20:19 EST , Service support ,
--- NOTE | 2019-10-15 19:13 | ED.DCSUM_ITS ---
History of Present Illness Chief Complaint: Nausea/Vomiting Informant: Patient, Significant Other - Abdominal Pain/Flank Pain Onset: Today Context: Sudden Onset Timing: Intermittent Quality: Dull Location: Diffuse - Nausea/Vomiting/Emesis GI Symptom: Nausea, Vomiting Narrative: Patient is an 78-year-old female presenting with 1 day of vomiting and low-grade fever. Patient is to start throwing up at 7 AM this morning. She states she is thrown up 10 times at least. She states initially her vomit was normal color but then it turned brown. She denies any associated diarrhea. She does feel very nauseous. She has diffuse abdominal pain associated with this. Patient denies any associated chest pain, shortness of breath, headache, vision changes or urinary symptoms. She notes she has a history of bowel perforation as well as multiple abdominal surgeries including total hysterectomy, oophorectomy, cholecystectomy and possibly an appendectomy. Past Medical History - Allergies and Home Meds Allergies/Adverse Reactions: Allergies clarithromycin [From Biaxin] Allergy (Verified 10/15/19 18:30) Fever and skin rash diazepam [From Valium] Allergy (Verified 10/15/19 18:30) Other SEIZURES diphenhydramine HCl [From Benadryl] Allergy (Verified 10/15/19 18:30) Unknown esomeprazole magnesium [From Nexium] Allergy (Verified 10/15/19 18:30) Unknown NSAIDS (Non-Steroidal Anti-Inflamma Allergy (Verified 10/15/19 18:30) Other CKD STAGE 4 Penicillins Allergy (Verified 10/15/19 18:30) Unknown pentazocine lactate [From Talwin] Allergy (Verified 10/15/19 18:30) Unknown Sulfa (Sulfonamide Antibiotics) Allergy (Verified 10/15/19 18:30) Unknown sulfur dioxide Allergy (Verified 10/15/19 18:30) Unknown Primary Care Physician: Julius Sandoval MD [Primary Care Provider] - Past Medical History: - - Hypertension, essential tremor, asthma, CHF Surgical History: cholecystectomy, hysterectomy, mastectomy, - - Bowel resection for ischemic bowel Smoking Status: Never smoker - Family History Maternal Family History: Family History (Last Reviewed 07/25/19 @ 11:34 by Amina Tipton) Mother Cancer Thyroid disorder Father Heart disease Family History: Reports: No pertinent history Paternal Family History: Family History (Last Reviewed 07/25/19 @ 11:34 by Amina Tipton) Mother Cancer Thyroid disorder Father Heart disease Family History: Reports: No pertinent history Review of Systems General: Reports: Chills, Fever, Malaise. Denies: Sweats Eyes: Denies: Visual changes - bilaterally, Diplopia ENT: Denies: Rhinorrhea, Sore throat Cardiovascular: Denies: Chest pain, Palpitations Respiratory: Denies: Dyspnea, Cough, Dyspnea on exertion Gastrointestinal: Reports: Abdominal pain, Nausea, Vomiting. Denies: Diarrhea, Melena, Hematochezia Genitourinary: Denies: Dysuria, Hematuria, Frequency Musculoskeletal: Denies: Myalgias, Back pain, Extremity Pain Skin: Denies: Rash, Wounds Neurological: Denies: Headache, Weakness, Numbness Physical Exam Vital Signs/Narrative: Vital Signs Temp Pulse Resp BP Pulse Ox 10/15/19 18:28 99.2 F H 95 18 125/59 H 98 Inital Vital Signs reviewed: Yes General: Well nourished, Well developed, No Acute Distress Head: Normocephalic, Atraumatic Eyes: Perrl, EOMI ENT: Moist mucous membranes, No rhinorrhea Neck: Supple, Nontender Cardiovascular: Regular rate, Regular rhythm, No murmurs Respiratory: No distress, CTA bilaterally, Chest nontender Abdomen: Soft, Nondistended, Normal bowel sounds, Tender - Diffuse?with light palpation, Hypoactive bowel sounds. Negative for: Guarding, Rebound tenderness Back: Nontender, Normal Inspection Extremities: Nontender, No edema Skin: Normal color, No rash Neurological: Alert, Oriented x3, Cranial nerves II-XII grossly intact, Normal Strength, Normal Sensation Psychological: Normal affect, Normal Mood Diagnostic/Tx/Re-eval - Medical Decision Making Patient is evaluated for 1 day of vomiting and abdominal discomfort. She does have a history of partial small bowel obstruction as well as bowel perforation. Patient does have tenderness on abdominal exam. She reports with her later episodes of vomiting brown vomit. This is concerning for feculent emesis. As patient is tender I did add on lactate. This was normal. She does have a mild leukocytosis of 13.1. Her creatinine is 1.65. Patient does have a history of CKD. She is initially given Zofran in the emergency room does have improvement of her symptoms. She declines pain medication while in the emergency room. CT of abdomen pelvis does show a partial small bowel obstruction. Patient has previously seen Dr. Noriega in the past. Dr. Atkinson was director of oncology however he does not currently have inpatient privileges. He recommended calling Dr. de leon. Dr. Ledesma felt that patient should be admitted but wanted medicine to admit. He recommended NG tube. He also recommended antibiotics entheses ciprofloxacin and Flagyl) as patient does have a mild leukocytosis. Discussed with admitting physician, Dr. Sims. He evaluated the patient in the emergency room. He agrees with admission but did not want to start antibiotics at this time as patient is otherwise well-appearing. He will discuss with surgery tomorrow. Patient is agreeable this plan. She is stable in the emergency room at time of disposition. She declines pain medication while in the emergency room. She is not had further episodes of vomiting in the emergency room. ED Disposition - Plan for ED Patient: Disposition: Acute Care Hospital [facility] Diagnosis: Partial small bowel obstruction Referrals: Julius Sandoval MD [Primary Care Provider] -
[2019-10-15] MEDS: Ondansetron 4 MG/2 ML Vial IV ×2 (19:36→21:35)
[2019-10-15 19:42] LABS: Bacteria 0 SEEN /hpf (None Seen); Mucous, Urine 0 SEEN /hpf (<or=2+)
[2019-10-15 19:43] LABS: Absolute Lymphocyte Count 0.47 X10^3/uL (0.83-4.51); Absolute Neutrophil Count 12.1 X10^3/uL (2.0-7.7); Basophil# 0.01 X10^3/uL; Basophil% 0.1 % (0-1); Eosinophil# 0.02 X10^3/uL; Eosinophils% 0.2 % (0-5); Hematocrit 44.5 % (37-47); Hemoglobin 14.4 g/dL (12.0-15.0); Lymphocyte # 0.47 X10^3/ul (4.0); Lymphocyte % 3.6 % (19-41); Mean Corp Hgb Conc 32.4 g/dL (32-36); Mean Corpuscular Hgb 30.3 pg (27.0-32.0); Mean Corpuscular Volume 93.5 fL (81-99); Mean Platelet Vol. 9.1 fl (6.2-12.0); Monocyte# 0.61 X10^3/uL; Monocyte% 4.6 % (0-10); NRBC Flagged by Analyzer 0 % (0-5); Neutrophil # 12.08 X10^3/uL (2.7-7.7); Neutrophil % 91.2 % (47-70); POSITIVE DIFFERENTIAL YES; Platelet Count 222 K/mm3 (150-450); RBC Distribution Width SD 44.7 fl (35.1-43.9); Red Blood Count 4.76 M/mm3 (4.2-5.4); White Blood Count 13.2 K/mm3 (4.4-11.0)
[2019-10-15 19:45] LABS: Color, Urine Yellow (Yellow); Glucose, Dipstick Normal (Normal); Ketone-Dipstick Negative (Negative); Leukocyte Esterase-Dipstick 500 /ul (Negative); Nitrite-Dipstick Negative (Negative); Occult Blood-Urine 25 /ul (Negative); Protein-Dipstick Negative (Negative); Urine Bilirubin Dipstick Negative (Negative); Urine Clarity Sl. Cloudy (Clear); Urine Urobilinogen Normal (Normal); Urine pH 6.5 (5.0 - 8.0)
[2019-10-15 19:52] LABS: Red Blood Cells-Urine 0-5 SEEN /hpf (0-5); Squamous Epithelial Cells - UA 0-5 SEEN /hpf (5-10); White Blood Cells 10-25 SEEN /hpf (0-5)
[2019-10-15 19:59] LABS: Differential Indicated SCAN CRITERIA MET
[2019-10-15 20:01] LABS: AST(SGOT) 21 U/L (15-37); Alanine Aminotransfer ALT/SGPT 26 U/L (13-56); Albumin, Serum 3.9 g/dL (3.2-5.0); Alkaline Phosphatase 109 U/L (45-117); Anion Gap 6 (5-15); BUN 41 mg/dL (7-18); BUN/Creat Ratio 24.6 RATIO (10-20); Calcium,Total 9.8 mg/dL (8.5-10.1); Chloride 103 mmol/L (98-107); Creatinine, Serum 1.67 mg/dL (0.55-1.02); EST Glomerular Filtration Rate 31 mL/min (>60); Est Glom Filt Rate - Afr Amer 38 mL/min (>60); Estimated Creatinine Clearance 20.27 ml/min; Globulin 3.8 g/dL (2.2-4.2); Glucose 128 mg/dL (74-106); Potassium 4.8 mmol/L (3.5-5.1); Protein, Total 7.7 g/dL (6.4-8.2); Sodium Level 139 mmol/L (136-145)
[2019-10-15 20:09] LABS: Platelet Estimate ADEQUATE (ADEQ); Red Cell Morphology NORM C+C NORMAL (NORM C&C)
[2019-10-15 20:11] LABS: Lactic Acid 1.5 mmol/L (0.4-1.9)
--- NOTE | 2019-10-15 21:21 | PCM.HP.STD ---
Problem List (1) Stage III chronic kidney disease Status: Chronic (2) GERD (gastroesophageal reflux disease) Status: Chronic Qualifiers: Esophagitis presence: esophagitis presence not specified Qualified Code(s): K21.9 - Gastro-esophageal reflux disease without esophagitis (3) Asthma Status: Chronic Qualifiers: Asthma severity: mild persistent (4) CAD (coronary artery disease) Status: Chronic Qualifiers: Coronary Disease-Associated Artery/Lesion type: [place] artery [place] vs. transplanted heart: [place] heart Associated angina: without angina Qualified Code(s): I25.10 - Atherosclerotic heart disease of [place] coronary artery without angina pectoris (5) Congestive heart failure Status: Chronic (6) Hypertension Status: Chronic Qualifiers: Hypertension type: essential hypertension Qualified Code(s): I10 - Essential (primary) hypertension (7) Partial obstruction of small intestine Status: Acute History of Present Illness Date of Admission: 10/15/19 Chief Complaint: Nausea and vomiting. The patient is a 78 year old F patient with past medical history as mentioned above presented to the emergency room because of nausea and vomiting. Her symptoms started today morning, she has been throwing up since then, more than 10 times since this morning, initially was light-colored and this evening, it became dark brown-colored vomitus without blood and without aggravating or relieving factors. She mentioned that she has been having with normal bowel movements without constipation or diarrhea. She denied abdominal pain but reported significant lower abdominal tenderness upon palpation. She denied fever or chills. She denied urinary symptoms. She will history of bowel perforation 5 years ago status post bowel resection at [facility]. She will history of multiple abdominal surgeries including hysterectomy with oophorectomy, cholecystectomy and appendectomy. She has history of small bowel obstruction that was treated conservatively and she was admitted to this hospital back on September,. In the emergency department, her vital signs are stable, afebrile. Routine blood work was remarkable for mild leukocytosis, BUN of 41, creatinine is 1.67. LFT was unremarkable. Troponin was negative. Urinalysis revealed cloudy urine, negative for nitrite, there was 500 leukocyte esterase, 10-25 WBCs and no bacteria seen. CT scan abdomen and pelvis without contrast revealed findings consistent with partial distal small bowel obstruction. She is being admitted for distal partial small bowel obstruction. 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 Allergies clarithromycin [From Biaxin] Allergy (Verified 10/15/19 18:30) Fever and skin rash diazepam [From Valium] Allergy (Verified 10/15/19 18:30) Other SEIZURES diphenhydramine HCl [From Benadryl] Allergy (Verified 10/15/19 18:30) Unknown esomeprazole magnesium [From Nexium] Allergy (Verified 10/15/19 18:30) Unknown NSAIDS (Non-Steroidal Anti-Inflamma Allergy (Verified 10/15/19 18:30) Other CKD STAGE 4 Penicillins Allergy (Verified 10/15/19 18:30) Unknown pentazocine lactate [From Talwin] Allergy (Verified 10/15/19 18:30) Unknown Sulfa (Sulfonamide Antibiotics) Allergy (Verified 10/15/19 18:30) Unknown sulfur dioxide Allergy (Verified 10/15/19 18:30) Unknown Home Medications: Ambulatory Orders Medication Instructions Recorded Albuterol Aerosols [Ventolin 2.5 mg INHALATION Q6H PRN PRN 03/20/15 Aerosols] Albuterol Inhaler [Ventolin Hfa] 2 puff INHALATION Q4H PRN PRN 03/20/15 Aspirin [Aspirin, Baby] 81 mg PO DAILY@0800 03/20/15 Dipyridamole [Persantine] 75 mg PO BID 03/20/15 Montelukast [Singulair] 10 mg PO DAILY 03/20/15 Spironolactone [Aldactone] 25 mg PO BID 03/20/15 Torsemide [Demadex] 20 mg PO DAILY 03/20/15 Losartan Potassium 12.5 mg PO QHS 03/20/18 Budesonide/Formoterol 160/4.5 2 puff INHALATION BID 06/14/19 [Symbicort 160/4.5 Mcg Inhaler (SP)] Nitrofurantoin Monohyd/M-Cryst 100 mg PO PRN PRN 06/14/19 [Macrobid 100 mg Capsule] Omeprazole 40 mg PO DAILY 06/14/19 Surgical History: Surgical History (Last Reviewed 07/25/19 @ 11:34 by Amina Tipton) H/O bilateral mastectomy Z90.13 H/O bilateral oophorectomy Z90.722 H/O dilation and curettage Z98.890 History of cholecystectomy Z90.49 History of colon surgery Z98.890 S/P RAFIA (total abdominal hysterectomy) Z90.710 Surgical History: cholecystectomy, hysterectomy, mastectomy, - - Bowel resection. 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 Lives: Spouse/ Significant Other Smoking Status: Never smoker Alcohol: None - *Family History Maternal Family History: Family History (Last Reviewed 07/25/19 @ 11:34 by Amina Tipton) Mother Cancer Thyroid disorder Father Heart disease Paternal Family History: Family History (Last Reviewed 07/25/19 @ 11:34 by Amina Tipton) Mother Cancer Thyroid disorder Father Heart disease Review of Systems Constitutional: Denies: Anorexia, Chills, Fever, Weakness, Fatigue Eyes: Denies: Blurred vision, Double vision, Drainage, Redness HEENT: Denies: Difficulty Hearing, Dysphasia, Ear Pain, Nasal Congestion, Sore Throat Cardiovascular: Denies: Chest Pain, Chest Pressure, Chest Tightness, Edema, Heaviness, Palpitations, Syncope Respiratory: Denies: Cough, Pleuritic Pain, Shortness of Breath, Sputum production, Wheezing Gastrointestinal: Reports: Abdominal Pain, Nausea, Vomiting. Denies: Constipation, Diarrhea Genitourinary: Denies: Dysuria, Frequency, Hematuria Musculoskeletal: Denies: Arm Pain, Back Pain, Foot Pain Skin: Denies: Dryness, Rash Neurological: Denies: Balance problems, Double vision, Change in Speech, Slurred speech, Confusion, Headaches, Incoordination, Numbness Psychiatric: Denies: Anxiety, Depression Endocrine: Denies: Change in Body Habitus, Polydipsia, Polyuria VTE Information - Inpt Only VTE Present on Admission: No VTE Mechan Device Prophylaxis: None VTE Pharm Prophylaxis ordered?: Yes Patient Problems: Active and Suspected Problems (Last Reviewed 07/25/19 @ 11:34 by Amina Tipton) Partial obstruction of small intestine (Acute) - Physical Exam Vitals/I&O's: Vital Signs Temp Pulse Resp BP Pulse Ox 99.2 F H 95 18 125/59 H 98 10/15/19 18:28 10/15/19 18:28 10/15/19 18:28 10/15/19 18:28 10/15/19 18:28 Oxygen Delivery Method Room Air Weight: 131 lb Body Mass Index (BMI) 24.7 General: Alert, Oriented x3, Cooperative, No apparent distress HEENT: Atraumatic, PERRLA, EOMI, Normocephalic Oral: Moist Mucosa, No Gingival or Mucosal Lesions/ Ulcerations Neck: Supple, No JVD, Negative Carotid Bruits, Trachea Midline, Thyroid Normal Size and Texture Lungs: Clear to auscultation, Normal air movement, No rhonchi, No wheeze, No rales, Diminished Cardiovascular: Regular rate, Regular Rhythm, Normal S1, Normal S2, PMI Normal Abdomen: Soft, Non-Distended, No Hepato-splenomegaly, Hypoactive Bowel Sounds, Tender - Lower abdominal tenderness, no guarding or rigidity. Extremities: No clubbing, No cyanosis, Edema - Trace edema. Skin: No rashes, No breakdown Lymphatic: No Cervical, Supraclavicular, or Inguinal Adenopathy Neurological: Cranial nerves II-XII grossly intact, Motor Exam 5/5 strength throughout Psych/Mental Status: Normal Affect, Appropriate, Alert and oriented to time, place, person, mood and affect Laboratory Results 10/15/19 19:25: WBC 13.2 H, RBC 4.76, Hgb 14.4, Hct 44.5, MCV 93.5, MCH 30.3, MCHC 32.4, RDW Std Deviation 44.7 H, RDW Coeff of Yariel 13.0, Plt Count 222, MPV 9.1, Immature Gran % (Auto) 0.300, Neut % (Auto) 91.2 H, Lymph % (Auto) 3.6 L, [place] % (Auto) 4.6, Eos % (Auto) 0.2, Baso % (Auto) 0.1, Absolute Neuts (auto) 12.1 H, Absolute Lymphs (auto) 0.47 L, Nucleated RBC % 0, Differential Comment , Platelet Estimate ADEQUATE, RBC Morphology NORM C+C 10/15/19 19:25: Sodium 139, Potassium 4.8, Chloride 103, Carbon Dioxide 30.0, Anion Gap 6, BUN 41 H, Creatinine 1.67 H, Estim Creat Clear Calc 20.27, Est GFR (MDRD) Af Amer 38 L, Est GFR (MDRD) Non-Af 31 L, BUN/Creatinine Ratio 24.6 H, Glucose 128 H, Calcium 9.8, Total Bilirubin 1.30 H, AST 21, ALT 26, Alkaline Phosphatase 109, Troponin I < 0.015, Total Protein 7.7, Albumin 3.9, Globulin 3.8, Albumin/Globulin Ratio 1.0 10/15/19 19:25: Lactic Acid 1.5 10/15/19 19:35: Urine Color Yellow, Urine Clarity Sl. Cloudy, Urine pH 6.5, Ur Specific [place] 1.010, Urine Protein Negative, Urine Glucose (UA) Normal, Urine Ketones Negative, Urine Occult Blood 25 H, Urine Nitrite Negative, Urine Bilirubin Negative, Urine Urobilinogen Normal, Ur Leukocyte Esterase 500 H, Urine RBC 0-5 SEEN, Urine WBC 10-25 SEEN, Ur Squamous Epith Cells 0-5 SEEN, Urine Bacteria 0 SEEN, Urine Mucus 0 SEEN Clinical Impression(s) from Imaging Studies Abdomen/Pelvis CT 10/15/19 19:12 IMPRESSION: Findings consistent with partial mid-distal small bowel obstruction Status post cholecystectomy hysterectomy and probable appendectomy Other findings as above Electronically Signed: Ronni King MD at 20:19 EST , Service support , Current Medications Sodium Chloride () 1,000 mls @ 75 mls/hr IV .[id number] [facility] Assessment/Plan All Active Problems (Last Reviewed 07/25/19 @ 11:34 by Amina Tipton) Partial obstruction of small intestine (Acute) This is an 78 years old female patient presented to the emergency room because of nausea and vomiting which was found to have partial small bowel obstruction and she is being admitted for treatment. #1 partial small bowel obstruction: In context of history of multiple abdominal surgeries including history of bowel perforation status post bowel resection. This likely due to adhesions. CT scan abdomen pelvis reviewed. Serum electrolytes and LFT was unremarkable. Plan: Admit to MedSurg floor, keep on n.p.o., IV fluids, IV morphine PRN for pain, IV antiemetics, NG tube insertion with suction, general surgery consult, repeat CBC and BMP tomorrow morning, ambulate, PT OT evaluation and treatment. #2 CAD: Stable, no acute issues. Continue aspirin, losartan. #3 chronic diastolic CHF: Clinically stable, compensated. Continue losartan and Aldactone, hold torsemide, close monitoring of volume status of volume overload. #4 stage III chronic kidney disease: Baseline creatinine has been fluctuating anywhere from from 1 to 1.8 mg/dL. It was 1.24 back on July,. Admission creatinine is 1.67. Patient will be on gentle IV fluid hydration, input output chart, repeat BMP tomorrow morning. #5 asthma: Stable, pulse ox continue normal air. Plan for albuterol PRN, continue Symbicort twice daily. #6 GERD: Start Pepcid IV twice daily. #7 hypertension: Blood pressure stable, continue losartan and Aldactone, IV hydralazine PRN. #8 DVT prophylaxis: Subcu heparin. This note was generated with [employer] dictation software. It may contain incorrect words, spelling, and punctuation that were not noted in checking the note before signing. Code Visit Inpatient E&M: 34441 Init Hosp L2
[2019-10-15 21:35] VITALS: BP 148/68; PULSE 85; RESP 18; TEMP 36.4; O2SAT 97
[2019-10-15] MEDS: 0.9% Normal Saline 1,000 ML 75 ML IV (21:35)
[2019-10-15] MEDS: Lidocaine 4% 5 ML Ampul 2 ML INHALATION (21:54)
[2019-10-15 21:56] VITALS: PULSE 88; RESP 16
[2019-10-15] MEDS: Lidocaine 2% Jelly 1 APPLIC Tube TOPICAL (22:04)
[2019-10-15] MEDS: Oxymetazoline 0.05% 1 SPRAY SPRAY.BTL 2 SPRAY NASAL (22:05)
--- NOTE | 2019-10-15 22:22 | ED.RN ---
unable to pass NG. Right nares unsuccessful. Left nares was very painful at the back of nose. PT could only tolerate very small increments of tubing. Finally, at the proper placement, air was noted in the tube, air bolus unsuccessful. PT pleaded for RN to pull tube out. PT was not able to talk at full voice during procedure. NG tube did not have any gastric contents on tube. Radiology aware. PT to go upstairs to room.
[2019-10-15 22:40] VITALS: BMI 24.6; BMI 24.7
[2019-10-15 23:20] VITALS: BP 128/62; PULSE 79; RESP 18; TEMP 37.3; O2SAT 94
[2019-10-15] MEDS: proMETHazine 25 MG/ML Syringe 6.25 MG IV (23:37)
[2019-10-15] MEDS: Famotidine 200 MG/20 ML MDV 20 MG in 0.9% Normal Saline (Pres. free 8 ML 300 MG IV (23:38)
[2019-10-15] MEDS: Heparin Injection (Vial) 5,000 UNIT/ML VIAL 5000 UNIT SC (23:44)
[2019-10-15 23:52] VITALS: O2SAT 94
[2019-10-15] MEDS: Spironolactone 25 MG Tablet PO (23:52)
[2019-10-15] MEDS: Losartan Potassium 25 MG Tablet 12.5 MG PO (23:52)
[2019-10-15] MEDS: 0.9% Saline Lock 10 ML Syringe IV (23:59)
[2019-10-16] VITALS (9 sets, daily range): BP systolic 118–140; BP diastolic 52–63; PULSE 72–76; RESP 16–22; TEMP 36.6–37.6; O2SAT 96–98
[2019-10-16 05:44] LABS: Absolute Lymphocyte Count 0.61 X10^3/uL (0.83-4.51); Absolute Neutrophil Count 8.7 X10^3/uL (2.0-7.7); Basophil# 0.02 X10^3/uL; Basophil% 0.2 % (0-1); Eosinophil# 0.04 X10^3/uL; Eosinophils% 0.4 % (0-5); Hematocrit 40.7 % (37-47); Hemoglobin 13.3 g/dL (12.0-15.0); Lymphocyte # 0.61 X10^3/ul (4.0); Mean Corp Hgb Conc 32.7 g/dL (32-36); Mean Corpuscular Volume 94.9 fL (81-99); Mean Platelet Vol. 8.7 fl (6.2-12.0); Monocyte# 0.84 X10^3/uL; Monocyte% 8.2 % (0-10); NRBC Flagged by Analyzer 0 % (0-5); Neutrophil # 8.67 X10^3/uL (2.7-7.7); Neutrophil % 84.8 % (47-70); Platelet Count 184 K/mm3 (150-450); RBC Distribution Width SD 45.4 fl (35.1-43.9); Red Blood Count 4.29 M/mm3 (4.2-5.4); White Blood Count 10.2 K/mm3 (4.4-11.0)
[2019-10-16] MEDS: Ondansetron 4 MG/2 ML Vial IV (06:09)
[2019-10-16] MEDS: Heparin Injection (Vial) 5,000 UNIT/ML VIAL 5000 UNIT SC ×3 (06:09→20:51)
[2019-10-16] MEDS: 0.9% Saline Lock 10 ML Syringe IV ×4 (06:09→20:55)
[2019-10-16 06:25] LABS: Anion Gap 5 (5-15); BUN 38 mg/dL (7-18); BUN/Creat Ratio 25.2 RATIO (10-20); Chloride 108 mmol/L (98-107); Creatinine, Serum 1.51 mg/dL (0.55-1.02); EST Glomerular Filtration Rate 35 mL/min (>60); Est Glom Filt Rate - Afr Amer 43 mL/min (>60); Estimated Creatinine Clearance 22.42 ml/min; Glucose 120 mg/dL (74-106); Potassium 4.2 mmol/L (3.5-5.1); Sodium Level 141 mmol/L (136-145)
[2019-10-16] MEDS: 0.9% Normal Saline 1,000 ML 100 ML IV ×2 (07:20→20:55)
--- NOTE | 2019-10-16 08:44 | CON.PCM_ITS ---
Problem List (1) Partial obstruction of small intestine Status: Acute Reason for Consult Date of Consultation: 10/16/19 History of Present Illness: The patient is a 78 year old F who reports that she started having vomiting abdominal pain yesterday. She had several surgeries in her abdomen. She has had a bowel resection about 5 years ago. She was admitted in 2017 with a small bowel obstruction that resolved spontaneously. She says this morning she is not having any nausea or vomiting. She still having left lower quadrant pain. She reports no flatus. 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 Allergies clarithromycin [From Biaxin] Allergy (Verified 10/15/19 22:48) Fever diazepam [From Valium] Allergy (Verified 10/15/19 22:48) seizures SEIZURES diphenhydramine HCl [From Benadryl] Allergy (Verified 10/15/19 22:48) difficulty breathing esomeprazole magnesium [From Nexium] Allergy (Verified 10/15/19 22:48) chest pain NSAIDS (Non-Steroidal Anti-Inflamma Allergy (Verified 10/15/19 18:30) Other CKD STAGE 4 Penicillins Allergy (Verified 10/15/19 22:48) Rash pentazocine lactate [From Talwin] Allergy (Verified 10/15/19 22:48) quit breathing Sulfa (Sulfonamide Antibiotics) Allergy (Verified 10/15/19 22:48) Rash sulfur dioxide Allergy (Verified 10/15/19 22:48) massive headaches Home Medications: Ambulatory Orders Medication Instructions Recorded Albuterol Aerosols [Ventolin 2.5 mg INHALATION Q6H PRN PRN 03/20/15 Aerosols] Albuterol Inhaler [Ventolin Hfa] 2 puff INHALATION Q4H PRN PRN 03/20/15 Aspirin [Aspirin, Baby] 81 mg PO QHS 03/20/15 Dipyridamole [Persantine] 75 mg PO BID 03/20/15 Montelukast [Singulair] 10 mg PO QHS 03/20/15 Spironolactone [Aldactone] 25 mg PO BID 03/20/15 Torsemide [Demadex] 20 mg PO DAILY 03/20/15 Losartan Potassium 12.5 mg PO QHS 03/20/18 Budesonide/Formoterol 160/4.5 2 puff INHALATION BID 06/14/19 [Symbicort 160/4.5 Mcg Inhaler (SP)] Omeprazole 40 mg PO SUTH 06/14/19 Systane 1 drp EACH EYE 4X/DAY 10/15/19 Surgical History: Surgical History (Last Reviewed 07/25/19 @ 11:34 by Amina Tipton) H/O bilateral mastectomy Z90.13 H/O bilateral oophorectomy Z90.722 H/O dilation and curettage Z98.890 History of cholecystectomy Z90.49 History of colon surgery Z98.890 S/P RAFIA (total abdominal hysterectomy) Z90.710 Surgical History: cholecystectomy, hysterectomy, mastectomy, - - Bowel resection. 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 Lives: Spouse/ Significant Other Smoking Status: Never smoker Alcohol: None - *Family History Maternal Family History: Family History (Last Reviewed 07/25/19 @ 11:34 by Amina Tipton) Mother Cancer Thyroid disorder Father Heart disease History Items: No pertinent history Paternal Family History: Family History (Last Reviewed 07/25/19 @ 11:34 by Amina Tipton) Mother Cancer Thyroid disorder Father Heart disease History Items: No pertinent history Review of Systems Constitutional: Denies: Anorexia, Fever Cardiovascular: Denies: Chest Pain Respiratory: Denies: Cough, Shortness of Breath Gastrointestinal: Reports: Abdominal Pain, Nausea, Vomiting Genitourinary: Denies: Dysuria Musculoskeletal: Denies: Joint Tenderness Neurological: Denies: Balance problems Hematologic/ Lymphatic: Denies: Anemia Patient Problems: Active and Suspected Problems (Last Reviewed 07/25/19 @ 11:34 by Amina Tipton) Partial obstruction of small intestine (Acute) - Physical Exam Vitals/I&O's: Vital Signs Temp Pulse Resp BP Pulse Ox 98 F 22 L 22 H 139/63 H 98 10/16/19 07:45 10/16/19 07:45 10/16/19 07:45 10/16/19 07:45 10/16/19 07:45 Oxygen Delivery Method Room Air Weight: 130 lb 8.218 oz Body Mass Index (BMI) 24.6 Intake and Output for Last 24 Hours 10/14/19 10/15/19 10/16/19 23:59 23:59 23:59 Intake Total 170 / 170 Output Total 200 / 200 Balance 170 / 170 -200 / -200 General: Alert, Oriented x3 Neck: No JVD Lungs: Normal air movement Cardiovascular: Regular rate, Regular Rhythm Abdomen: Soft, Distended, Tender - Tender in left lower quadrant no guarding or rebound Extremities: No clubbing Skin: No rashes Musculoskeletal: No Muscle Wasting Neurological: Cranial nerves II-XII grossly intact Psych/Mental Status: Normal Affect Laboratory Results 10/15/19 19:25: WBC 13.2 H, RBC 4.76, Hgb 14.4, Hct 44.5, MCV 93.5, MCH 30.3, MCHC 32.4, RDW Std Deviation 44.7 H, RDW Coeff of Yariel 13.0, Plt Count 222, MPV 9.1, Immature Gran % (Auto) 0.300, Neut % (Auto) 91.2 H, Lymph % (Auto) 3.6 L, [place] % (Auto) 4.6, Eos % (Auto) 0.2, Baso % (Auto) 0.1, Absolute Neuts (auto) 12.1 H, Absolute Lymphs (auto) 0.47 L, Nucleated RBC % 0, Differential Comment , Platelet Estimate ADEQUATE, RBC Morphology NORM C+C 10/15/19 19:25: Sodium 139, Potassium 4.8, Chloride 103, Carbon Dioxide 30.0, Anion Gap 6, BUN 41 H, Creatinine 1.67 H, Estim Creat Clear Calc 20.27, Est GFR (MDRD) Af Amer 38 L, Est GFR (MDRD) Non-Af 31 L, BUN/Creatinine Ratio 24.6 H, Glucose 128 H, Calcium 9.8, Total Bilirubin 1.30 H, AST 21, ALT 26, Alkaline Phosphatase 109, Troponin I < 0.015, Total Protein 7.7, Albumin 3.9, Globulin 3.8, Albumin/Globulin Ratio 1.0 10/15/19 19:25: Lactic Acid 1.5 10/15/19 19:35: Urine Color Yellow, Urine Clarity Sl. Cloudy, Urine pH 6.5, Ur Specific [place] 1.010, Urine Protein Negative, Urine Glucose (UA) Normal, Urine Ketones Negative, Urine Occult Blood 25 H, Urine Nitrite Negative, Urine Bilirubin Negative, Urine Urobilinogen Normal, Ur Leukocyte Esterase 500 H, [place] RBC 0-5 SEEN, Urine WBC 10-25 SEEN, Ur Squamous Epith Cells 0-5 SEEN, Urine Bacteria 0 SEEN, Urine Mucus 0 SEEN 10/16/19 05:30: WBC 10.2, RBC 4.29, Hgb 13.3, Hct 40.7, MCV 94.9, MCH 31.0, MCHC 32.7, RDW Std Deviation 45.4 H, RDW Coeff of Yariel 13.0, Plt Count 184, MPV 8.7, Immature Gran % (Auto) 0.400, Neut % (Auto) 84.8 H, Lymph % (Auto) 6.0 L, [place] % (Auto) 8.2, Eos % (Auto) 0.4, Baso % (Auto) 0.2, Absolute Neuts (auto) 8.7 H, Absolute Lymphs (auto) 0.61 L, Nucleated RBC % 0 10/16/19 05:30: Sodium 141, Potassium 4.2, Chloride 108 H, Carbon Dioxide 28.0, Anion Gap 5, BUN 38 H, Creatinine 1.51 H, Estim Creat Clear Calc 22.42, Est GFR (MDRD) Af Amer 43 L, Est GFR (MDRD) Non-Af 35 L, BUN/Creatinine Ratio 25.2 H, Glucose 120 H, Calcium 9.0 Clinical Impression(s) from Imaging Studies Abdomen/Pelvis CT 10/15/19 19:12 IMPRESSION: Findings consistent with partial mid-distal small bowel obstruction Status post cholecystectomy hysterectomy and probable appendectomy Other findings as above Electronically Signed: Ronni King MD at 20:19 EST , Service support , Current Medications Acetaminophen (Tylenol) 650 mg PO Q6H PRN PRN PRN Reason: Pain Score 1-3/Temp > 100.7 F Albuterol Sulfate (Ventolin Aerosols) 2.5 mg INHALATION Q4H PRN PRN PRN Reason: Shortness of breath, wheezing Albuterol Sulfate (Ventolin Aerosols) 2.5 mg INHALATION Q6HWA.RT [facility] Last Admin: 10/16/19 07:04 Dose: Not Given Documented by: Budesonide (Pulmicort Aerosol) 0.5 mg INHALATION Q12H.RT [facility] Last Admin: 10/16/19 07:04 Dose: Not Given Documented by: Heparin Sodium (Porcine) (Heparin Na) 5,000 unit SC Q8 [facility] Last Admin: 10/16/19 06:09 Dose: 5,000 unit Documented by: Sodium Chloride () 1,000 mls @ 100 mls/hr IV .Q10H [facility] Last Admin: 10/15/19 23:44 Dose: Not Given Documented by: Famotidine 20 mg/ Sodium (Chloride) 10 mls @ 300 mls/hr IV Q12 [facility] Last Infusion: 10/15/19 23:40 Dose: Infused Documented by: Losartan Potassium (Cozaar) 12.5 mg PO QHS [facility] Last Admin: 10/15/19 23:52 Dose: 12.5 mg Documented by: Morphine Sulfate () 1 - 2 mg IV Q3H PRN PRN PRN Reason: Pain Score 4-10/10 Ondansetron HCl (Zofran) 4 mg IV Q8H PRN PRN PRN Reason: NAUSEA/VOMITING Last Admin: 10/16/19 06:09 Dose: 4 mg Documented by: Promethazine HCl (Phenergan) 6.25 mg IV Q6H PRN PRN PRN Reason: NAUSEA/VOMITING Last Admin: 10/15/19 23:37 Dose: 6.25 mg Documented by: Sodium Chloride () 10 - 40 ml IV UD PRN PRN Reason: SALINE FLUSH Last Admin: 10/16/19 06:09 Dose: 20 ml Documented by: Spironolactone (Aldactone) 25 mg PO BID [facility] Last Admin: 10/15/19 23:52 Dose: 25 mg Documented by: Assessment/Plan All Active Problems (Last Reviewed 07/25/19 @ 11:34 by Amina Tipton) Partial obstruction of small intestine (Acute) 78-year-old female small bowel obstruction 1. The patient has had small bowel obstruction about 2 years ago which resolved with conservative treatment. She is currently not having any nausea or vomiting but she was unable to have NG tube placed. She is complaining of left lower quadrant pain this morning. I will get a small bowel follow-through today. Antonio Ledesma MD Pager: [facility] [address] [place] [address] [address] [place] [phone] Office:
[2019-10-16] MEDS: Famotidine 200 MG/20 ML MDV 20 MG in 0.9% Normal Saline (Pres. free 8 ML 300 MG IV ×2 (08:47→20:52)
[2019-10-16] MEDS: proMETHazine 25 MG/ML Syringe 6.25 MG IV (08:48)
--- NOTE | 2019-10-16 08:59 | NURSING ---
Radiology called and requested pt downstairs- pt needed to urinate and requested IV medication prior to transport. Pt being transported at this time.
--- NOTE | 2019-10-16 09:05 | RAD_ITS ---
STUDY: GASTROGRAFIN SMALL BOWEL FOLLOW-THROUGH EXAMINATION. REASON FOR EXAM: Female, 78 years old. SBO, 90ml gastro/90 ml water given, immediate film done at 9:20, pt. did throw up multiple times throughout the procedure FLUOROSCOPY TIME (if supplied): ( 96 seconds ) minutes/seconds TECHNIQUE: The patient ingested Gastrografin. A small bowel follow-through examination was obtained. COMPARISON: None. FINDINGS: On the oracle fusion developer film, there are mildly dilated small bowel loops. Multilevel disc space narrowing and disc degeneration. Following ingestion of the Gastrografin, there is evidence of a dilated small bowel loops. At 2 1/2 hours following the ingestion, Gastrografin is seen within the right hemicolon. Findings are in keeping with the partial small bowel obstruction with the transition point in the distal small bowel. RAD/Small Bowel Series Only IMPRESSION: Findings suggestive of partial small bowel obstruction with a transition point at the level of the distal small bowel. Electronically Signed: Clif Peraza, at 14:34 EST , Service support ,
--- NOTE | 2019-10-16 12:09 | CASEMGMT ---
RN CM Assessment Note Presentation: PSBO Intro role of CM to patient in room. Pt states she is independent at home, does not use DME and plans to return home on dc. Demographics reviewed. PCP: Dr. Julius Sandoval Specialists: Dr. Vu Benites, outplacement consultant [place] [phone]; Dr. Brooke Dill, nephrology Preferred Pharmacy: [facility] Insurance: [facility] Prescription Benefit: yes LNOK: , Russell Calvert Living Arrangements: Lives in one story home. Independent. Denies use of any DME and states she helps her around the yard and recently cutting wood. No care needs identified. Transportation: drives DME: none HHC/SNF: none Patient DC goals: Home DC PLAN: Home. PT/OT naomy completed- no therapy recommended. Fernanda ELISEN RN ACM
[2019-10-16] MEDS: Spironolactone 25 MG Tablet PO ×2 (12:10→20:51)
--- NOTE | 2019-10-16 14:38 | PCM.PN.HOSP ---
Patient Problems: Active and Suspected Problems (Last Reviewed 07/25/19 @ 11:34 by Amina Tipton) Partial obstruction of small intestine (Acute) Subjective: Patient seen and examined. She was admitted via the ED on 10/15/2019 with a complaint of nausea and vomiting. She threw up about 10 times on the day of admission and was initially light-colored but subsequently became dark brown. She had been having regular bowel movements and passing gas. She has had a history of multiple abdominal surgeries and has a history of small bowel obstruction which resolved with conservative management in September 2016. She has been managed for small bowel obstruction as CT scan of the abdomen and pelvis without contrast showed distal partial small bowel obstruction. Patient seen this morning. Abdominal pain had improved and she denied any fever or chills, nausea, vomiting or diarrhea. She is currently n.p.o. General surgery is on board. Vitals/I&O's: Vital Signs Temp Pulse Resp BP Pulse Ox 99.7 F H 74 22 H 139/63 H 98 10/16/19 07:45 10/16/19 10:00 10/16/19 07:45 10/16/19 07:45 10/16/19 07:45 Oxygen Delivery Method Room Air Weight: 130 lb 8.218 oz Body Mass Index (BMI) 24.6 Intake and Output for Last 24 Hours 10/14/19 10/15/19 10/16/19 23:59 23:59 23:59 Intake Total 170 / 170 1041.67 / 1041.67 Output Total 300 / 300 Balance 170 / 170 741.67 / 741.67 General: Alert, Oriented x3, Cooperative, No apparent distress HEENT: Atraumatic, PERRLA, EOMI, Normocephalic Oral: Dry Mucosa Neck: Supple, No JVD, Negative Carotid Bruits Lungs: Clear to auscultation, Normal air movement, No rhonchi, No wheeze, No rales Cardiovascular: Regular rate, Regular Rhythm, Normal S1, Normal S2, No murmurs Abdomen: Bowel Sounds Present, Soft, Non Tender, No Hepato-splenomegaly, - - minimal distension Extremities: No clubbing, No cyanosis, No edema, Capillary Refill Less than 3 Seconds Skin: No rashes, No breakdown Musculoskeletal: No Tenderness to Palpation of Joints or Extremities Lymphatic: No Cervical, Supraclavicular, or Inguinal Adenopathy Neurological: Cranial nerves II-XII grossly intact, Neuro grossly intact, Motor Exam 5/5 strength throughout Psych/Mental Status: Normal Affect, Appropriate, Alert and oriented to time, place, person, mood and affect Laboratory Results 10/15/19 19:25: WBC 13.2 H, RBC 4.76, Hgb 14.4, Hct 44.5, MCV 93.5, MCH 30.3, MCHC 32.4, RDW Std Deviation 44.7 H, RDW Coeff of Yariel 13.0, Plt Count 222, MPV 9.1, Immature Gran % (Auto) 0.300, Neut % (Auto) 91.2 H, Lymph % (Auto) 3.6 L, [place] % (Auto) 4.6, Eos % (Auto) 0.2, Baso % (Auto) 0.1, Absolute Neuts (auto) 12.1 H, Absolute Lymphs (auto) 0.47 L, Nucleated RBC % 0, Differential Comment , Platelet Estimate ADEQUATE, RBC Morphology NORM C+C 10/15/19 19:25: Sodium 139, Potassium 4.8, Chloride 103, Carbon Dioxide 30.0, Anion Gap 6, BUN 41 H, Creatinine 1.67 H, Estim Creat Clear Calc 20.27, Est GFR (MDRD) Af Amer 38 L, Est GFR (MDRD) Non-Af 31 L, BUN/Creatinine Ratio 24.6 H, Glucose 128 H, Calcium 9.8, Total Bilirubin 1.30 H, AST 21, ALT 26, Alkaline Phosphatase 109, Troponin I < 0.015, Total Protein 7.7, Albumin 3.9, Globulin 3.8, Albumin/Globulin Ratio 1.0 10/15/19 19:25: Lactic Acid 1.5 10/15/19 19:35: Urine Color Yellow, Urine Clarity Sl. Cloudy, Urine pH 6.5, Ur Specific [place] 1.010, Urine Protein Negative, Urine Glucose (UA) Normal, Urine Ketones Negative, Urine Occult Blood 25 H, Urine Nitrite Negative, Urine Bilirubin Negative, Urine Urobilinogen Normal, Ur Leukocyte Esterase 500 H, Urine RBC 0-5 SEEN, Urine WBC 10-25 SEEN, Ur Squamous Epith Cells 0-5 SEEN, Urine Bacteria 0 SEEN, Urine Mucus 0 SEEN 10/16/19 05:30: WBC 10.2, RBC 4.29, Hgb 13.3, Hct 40.7, MCV 94.9, MCH 31.0, MCHC 32.7, RDW Std Deviation 45.4 H, RDW Coeff of Yariel 13.0, Plt Count 184, MPV 8.7, Immature Gran % (Auto) 0.400, Neut % (Auto) 84.8 H, Lymph % (Auto) 6.0 L, [place] % (Auto) 8.2, Eos % (Auto) 0.4, Baso % (Auto) 0.2, Absolute Neuts (auto) 8.7 H, Absolute Lymphs (auto) 0.61 L, Nucleated RBC % 0 10/16/19 05:30: Sodium 141, Potassium 4.2, Chloride 108 H, Carbon Dioxide 28.0, Anion Gap 5, BUN 38 H, Creatinine 1.51 H, Estim Creat Clear Calc 22.42, Est GFR (MDRD) Af Amer 43 L, Est GFR (MDRD) Non-Af 35 L, BUN/Creatinine Ratio 25.2 H, Glucose 120 H, Calcium 9.0 Diagnostic Data Abdomen/Pelvis CT 10/15/19 19:12 IMPRESSION: Findings consistent with partial mid-distal small bowel obstruction Status post cholecystectomy hysterectomy and probable appendectomy Other findings as above Electronically Signed: Ronni King MD at 20:19 EST , Service support , Small Bowel X-Ray 10/16/19 09:05 IMPRESSION: Findings suggestive of partial small bowel obstruction with a transition point at the level of the distal small bowel. Electronically Signed: Clif Peraza, at 14:34 EST , Service support , Current Medications Acetaminophen (Tylenol) 650 mg PO Q6H PRN PRN PRN Reason: Pain Score 1-3/Temp > 100.7 F Albuterol Sulfate (Ventolin Aerosols) 2.5 mg INHALATION Q4H PRN PRN PRN Reason: Shortness of breath, wheezing Albuterol Sulfate (Ventolin Aerosols) 2.5 mg INHALATION Q6HWA.RT [facility] Last Admin: 10/16/19 07:04 Dose: Not Given Documented by: Budesonide (Pulmicort Aerosol) 0.5 mg INHALATION Q12H.RT [facility] Last Admin: 10/16/19 07:04 Dose: Not Given Documented by: Heparin Sodium (Porcine) (Heparin Na) 5,000 unit SC Q8 [facility] Last Admin: 10/16/19 06:09 Dose: 5,000 unit Documented by: Sodium Chloride () 1,000 mls @ 100 mls/hr IV .Q10H [facility] Last Infusion: 10/16/19 12:12 Dose: 100 mls/hr Documented by: Famotidine 20 mg/ Sodium (Chloride) 10 mls @ 300 mls/hr IV Q12 [facility] Last Infusion: 10/16/19 08:57 Dose: Infused Documented by: Losartan Potassium (Cozaar) 12.5 mg PO QHS [facility] Last Admin: 10/15/19 23:52 Dose: 12.5 mg Documented by: Morphine Sulfate () 1 - 2 mg IV Q3H PRN PRN PRN Reason: Pain Score 4-10/10 Ondansetron HCl (Zofran) 4 mg IV Q8H PRN PRN PRN Reason: NAUSEA/VOMITING Last Admin: 10/16/19 06:09 Dose: 4 mg Documented by: Promethazine HCl (Phenergan) 6.25 mg IV Q6H PRN PRN PRN Reason: NAUSEA/VOMITING Last Admin: 10/16/19 08:48 Dose: 6.25 mg Documented by: Sodium Chloride () 10 - 40 ml IV UD PRN PRN Reason: SALINE FLUSH Last Admin: 10/16/19 12:10 Dose: 10 ml Documented by: Spironolactone (Aldactone) 25 mg PO BID [facility] Last Admin: 10/16/19 12:10 Dose: 25 mg Documented by: Medical Necessity - Tobacco Use Smoking Status: Never smoker Assessment/Plan All Active Problems (Last Reviewed 07/25/19 @ 11:34 by Amina Tipton) Partial obstruction of small intestine (Acute) 1. Partial small bowel obstruction likely due to adhesions has a history of multiple abdominal surgeries, and has had previous partial small bowel obstruction, which resolved with conservative management. currently NPO. on IV morphine, prn, IV zofran and IVF general surgery on board small bowel xray this morning showed partial small bowel obstruction with transition point at level of distal small bowel. 2. CAD: stable. On aspirin and losartan 3. Chronic HFpEF: stable. On losartan and aldactone. torsemide on hold for now. 4. CKD stage 3: Cr was 1.67 on admission, and is now 1.51 Cr has fluctuated between 1.2-1.5 since 2018. will monitor 5. Asthma: stable. Not in exacerbation. On albuterol and symbicort 6. GERD; on IV pepcid as she is currently NPO 7. Hypertension: on losartan and aldactone 8. History of breast cancer and endometrial cancer status post bilateral mastectomy, and bilateral oophorectomy as well as RAFIA: Stable DVT prophylaxis: heparin Code Visit Inpatient E&M: 59763 Subs Hosp L2
[2019-10-16] MEDS: Montelukast 10 MG Tablet PO (20:50)
[2019-10-16] MEDS: Losartan Potassium 25 MG Tablet 12.5 MG PO (20:51)
[2019-10-16] MEDS: Budesonide/Formoterol Fumarate 10.2 GM Inhaler INHALATION (20:59)
[2019-10-17 03:39] VITALS: BP 127/65; PULSE 72; RESP 16; TEMP 37.1; O2SAT 100
--- NOTE | 2019-10-17 05:55 | RAD_ITS ---
STUDY: X-RAY - ABDOMEN/PELVIS REASON FOR EXAM: Female, 78 years old. small bowel obstruction TECHNIQUE: Single AP view of the abdomen / pelvis. COMPARISON: X-ray small bowel series done on 10/16/2019. CT scan abdomen and pelvis 10/15/2019. FINDINGS: Normal visualized lung bases. There is an unremarkable bowel gas pattern. There is no currently demonstrated gaseous distention of small bowel loops. Previously administered oral contrast is now in the colon and rectum. There is no demonstrated free abdominal air. The visualized liver, spleen and kidneys are grossly normal in size and morphology. Normal soft tissue structures. There are degenerative changes and scoliosis of the lumbar spine. RAD/Abdomen Single View (Portable) IMPRESSION: Nonspecific bowel gas pattern. Previously administered oral contrast is now in the colon and rectum. Electronically Signed: Mando Ernst MD at 6:08 EST , Service support ,
[2019-10-17] MEDS: 0.9% Normal Saline 1,000 ML 100 ML IV (06:28)
[2019-10-17] MEDS: Heparin Injection (Vial) 5,000 UNIT/ML VIAL 5000 UNIT SC ×2 (06:28→15:04)
[2019-10-17 06:35] LABS: Absolute Neutrophil Count 6.1 X10^3/uL (2.0-7.7); Basophil# 0.02 X10^3/uL; Basophil% 0.3 % (0-1); Eosinophil# 0.04 X10^3/uL; Eosinophils% 0.5 % (0-5); Hematocrit 39.6 % (37-47); Hemoglobin 12.1 g/dL (12.0-15.0); Lymphocyte % 9.5 % (19-41); Mean Corp Hgb Conc 30.6 g/dL (32-36); Mean Corpuscular Hgb 29.9 pg (27.0-32.0); Mean Corpuscular Volume 97.8 fL (81-99); Monocyte# 0.49 X10^3/uL; Monocyte% 6.7 % (0-10); NRBC Flagged by Analyzer 0 % (0-5); Neutrophil # 6.07 X10^3/uL (2.7-7.7); Neutrophil % 82.9 % (47-70); Platelet Count 172 K/mm3 (150-450); RBC Distribution Width CV 13.2 % (11.6-14.6); RBC Distribution Width SD 47.4 fl (35.1-43.9); Red Blood Count 4.05 M/mm3 (4.2-5.4); White Blood Count 7.3 K/mm3 (4.4-11.0)
[2019-10-17 07:02] LABS: Anion Gap 4 (5-15); BUN 28 mg/dL (7-18); BUN/Creat Ratio 22.6 RATIO (10-20); Calcium,Total 8.8 mg/dL (8.5-10.1); Chloride 122 mmol/L (98-107); Creatinine, Serum 1.24 mg/dL (0.55-1.02); EST Glomerular Filtration Rate 44 mL/min (>60); Est Glom Filt Rate - Afr Amer 53 mL/min (>60); Estimated Creatinine Clearance 27.31 ml/min; Glucose 102 mg/dL (74-106); Potassium 4.6 mmol/L (3.5-5.1); Sodium Level 151 mmol/L (136-145)
--- NOTE | 2019-10-17 07:23 | PCM.PN.SRG ---
Patient Problems: Active and Suspected Problems (Last Reviewed 07/25/19 @ 11:34 by Amina Tipton) Partial obstruction of small intestine (Acute) Subjective: Patient reports he is passing gas and did have a bowel movement. She is not having any abdominal pain or nausea or vomiting this morning. - Physical Exam Vitals/I&O's: Vital Signs Temp Pulse Resp BP Pulse Ox 98.7 F 72 16 127/65 H 100 10/17/19 03:39 10/17/19 03:39 10/17/19 03:39 10/17/19 03:39 10/17/19 03:39 Oxygen Delivery Method Room Air Weight: 130 lb 8.218 oz Body Mass Index (BMI) 24.6 Intake and Output for Last 24 Hours 10/15/19 10/16/19 10/17/19 23:59 23:59 23:59 Intake Total 170 / 170 1890.00 / 1890.00 955 / 955 Output Total 600 / 600 600 / 600 Balance 170 / 170 1290.00 / 1290.00 355 / 355 General: Alert, Oriented x3 Lungs: Normal air movement Abdomen: Soft, Non Tender, Non-Distended Laboratory Results 10/17/19 06:14: WBC 7.3, RBC 4.05 L, Hgb 12.1, Hct 39.6, MCV 97.8, MCH 29.9, MCHC 30.6 L, RDW Std Deviation 47.4 H, RDW Coeff of Yariel 13.2, Plt Count 172, MPV 9.0, Immature Gran % (Auto) 0.100, Neut % (Auto) 82.9 H, Lymph % (Auto) 9.5 L, [place] % (Auto) 6.7, Eos % (Auto) 0.5, Baso % (Auto) 0.3, Absolute Neuts (auto) 6.1, Absolute Lymphs (auto) 0.70 L, Nucleated RBC % 0 10/17/19 06:14: Sodium 151 H, Potassium 4.6, Chloride 122 H, Carbon Dioxide 25.0, Anion Gap 4 L, BUN 28 H, Creatinine 1.24 H, Estim Creat Clear Calc 27.31, Est GFR (MDRD) Af Amer 53 L, Est GFR (MDRD) Non-Af 44 L, BUN/Creatinine Ratio 22.6 H, Glucose 102, Calcium 8.8 Current Medications Acetaminophen (Tylenol) 650 mg PO Q6H PRN PRN PRN Reason: Pain Score 1-3/Temp > 100.7 F Albuterol Sulfate (Ventolin Aerosols) 2.5 mg INHALATION Q4H PRN PRN PRN Reason: Shortness of breath, wheezing Budesonide/Formoterol Fumarate (Symbicort 160/4.5 Mcg Inhaler (Sp)) 1 - 2 puff INHALATION BID [facility] Last Admin: 10/16/19 20:59 Dose: 2 puff Documented by: Heparin Sodium (Porcine) (Heparin Na) 5,000 unit SC Q8 [facility] Last Admin: 10/17/19 06:28 Dose: 5,000 unit Documented by: Famotidine 20 mg/ Sodium (Chloride) 10 mls @ 300 mls/hr IV Q12 [facility] Last Infusion: 10/16/19 20:54 Dose: Infused Documented by: Losartan Potassium (Cozaar) 12.5 mg PO QHS [facility] Last Admin: 10/16/19 20:51 Dose: 12.5 mg Documented by: Montelukast Sodium (Singulair) 10 mg PO QHS [facility] Last Admin: 10/16/19 20:50 Dose: 10 mg Documented by: Morphine Sulfate () 1 - 2 mg IV Q3H PRN PRN PRN Reason: Pain Score 4-10/10 Ondansetron HCl (Zofran) 4 mg IV Q8H PRN PRN PRN Reason: NAUSEA/VOMITING Last Admin: 10/16/19 06:09 Dose: 4 mg Documented by: Promethazine HCl (Phenergan) 6.25 mg IV Q6H PRN PRN PRN Reason: NAUSEA/VOMITING Last Admin: 10/16/19 08:48 Dose: 6.25 mg Documented by: Sodium Chloride () 10 - 40 ml IV UD PRN PRN Reason: SALINE FLUSH Last Admin: 10/16/19 20:55 Dose: 10 ml Documented by: Spironolactone (Aldactone) 25 mg PO BID [facility] Last Admin: 10/16/19 20:51 Dose: 25 mg Documented by: Medical Necessity - Tobacco Use Smoking Status: Never smoker Assessment/Plan All Active Problems (Last Reviewed 07/25/19 @ 11:34 by Amina Tipton) Partial obstruction of small intestine (Acute) 78-year-old female with resolving small bowel obstruction 1. Patient has small bowel follow-through yesterday which showed dilated small bowel loops but did show progression of contrast to the right colon. Repeat KUB this morning shows no distended small bowel and all the contrast is in the colon and rectum. She reports she is having bowel movements and passing flatus. She is not having any nausea or vomiting. I will initiate clear liquid diet and advance as tolerated to regular diet. If she tolerates regular diet today with no increase in pain or nausea or vomiting she may be discharged home. Antoino Ledesma MD Pager: [facility] [address] [place] [address], [address] [place] [address] Office:
[2019-10-17 08:14] VITALS: BP 138/58; PULSE 68; RESP 18; TEMP 36.6; O2SAT 100
[2019-10-17] MEDS: Spironolactone 25 MG Tablet PO (10:16)
[2019-10-17] MEDS: Budesonide/Formoterol Fumarate 10.2 GM Inhaler INHALATION (10:16)
[2019-10-17] MEDS: Famotidine 200 MG/20 ML MDV 20 MG in 0.9% Normal Saline (Pres. free 8 ML 300 MG IV (10:19)
[2019-10-17 14:00] VITALS: O2SAT 96
--- NOTE | 2019-10-17 15:30 | DCINST_ITS ---
- Discharge Diagnoses Current Active Problems: Current Active and Chronic Problems (Last Reviewed 07/25/19 @ 11:34 by Amina Tipton) Stage III chronic kidney disease (Chronic) Partial obstruction of small intestine (Acute) You will use the following diet at home:: Cardiac Your food should be the consistency of: Regular Your liquids should be the consistency of: Regular/Thin Discharge Activity: Return to Normal Activity Weight Bearing Status: Weight bearing as tolerated Call your doctor if you observe: Fever of 101 or Higher, Inability to have a bowel movement - or pass gas, Shortness of breath, - - abdominal pain Instructions: Small Bowel Obstruction Allergies/Adverse Reactions: Allergies clarithromycin [From Biaxin] Allergy (Verified 10/15/19 22:48) Fever diazepam [From Valium] Allergy (Verified 10/15/19 22:48) seizures SEIZURES diphenhydramine HCl [From Benadryl] Allergy (Verified 10/15/19 22:48) difficulty breathing esomeprazole magnesium [From Nexium] Allergy (Verified 10/15/19 22:48) chest pain NSAIDS (Non-Steroidal Anti-Inflamma Allergy (Verified 10/15/19 18:30) Other CKD STAGE 4 Penicillins Allergy (Verified 10/15/19 22:48) Rash pentazocine lactate [From Talwin] Allergy (Verified 10/15/19 22:48) quit breathing Sulfa (Sulfonamide Antibiotics) Allergy (Verified 10/15/19 22:48) Rash sulfur dioxide Allergy (Verified 10/15/19 22:48) massive headaches Medications to take at Discharge Albuterol Aerosols [Ventolin Aerosols] 2.5 mg INHALATION Q6H PRN PRN 03/20/15 Albuterol Inhaler [Ventolin Hfa] 2 puff INHALATION Q4H PRN PRN 03/20/15 Aspirin [Aspirin, Baby] 81 mg PO QHS 03/20/15 Dipyridamole [Persantine] 75 mg PO BID 03/20/15 Montelukast [Singulair] 10 mg PO QHS 03/20/15 Spironolactone [Aldactone] 25 mg PO BID 03/20/15 Torsemide [Demadex] 20 mg PO DAILY 03/20/15 Losartan Potassium 12.5 mg PO QHS 03/20/18 Budesonide/Formoterol 160/4.5 [Symbicort 160/4.5 Mcg Inhaler (SP)] 2 puff INHALATION BID 06/14/19 Omeprazole 40 mg PO SUTH 06/14/19 Systane 1 drp EACH EYE 4X/DAY 10/15/19 Primary Care Physician: Julius Sandoval MD [Primary Care Provider] - Please follow up with your Primary Care Physician in: one week Test Results: Test results from this visit will be discussed in further detail at your follow- up appointment, if applicable. Please Follow Up With: Antonio Ledesma MD When: 1-2 weeks Proposed Discharge Date: 10/17/19
[2019-10-17 15:31] VITALS: BP 115/53; PULSE 63; RESP 18; TEMP 36.6; O2SAT 99
--- NOTE | 2019-10-17 15:31 | DS.PCM_ITS ---
Discharge Date and Diagnosis - Problem List Patient Problems: Active and Suspected Problems (Last Reviewed 07/25/19 @ 11:34 by Amina Tipton) Partial obstruction of small intestine (Acute) Date of Admission: 10/15/19 Date of Discharge: 10/17/19 - Primary Discharge Diagnosis Active and Suspected Problems (Last Reviewed 07/25/19 @ 11:34 by Amina Tipton) Partial obstruction of small intestine (Acute) - Secondary Discharge Diagnosis Chronic Problems (Last Reviewed 07/25/19 @ 11:34 by Amina Tipton) Stage III chronic kidney disease (Chronic) GERD (gastroesophageal reflux disease) (Chronic) Asthma (Chronic) CAD (coronary artery disease) (Chronic) Congestive heart failure (Chronic) Hypertension (Chronic) Hospital Course and Treatment Imaging Results: Diagnostic Data Abdomen/Pelvis CT 10/15/19 19:12 IMPRESSION: Findings consistent with partial mid-distal small bowel obstruction Status post cholecystectomy hysterectomy and probable appendectomy Other findings as above Electronically Signed: Ronni King MD at 20:19 EST , Service support , Small Bowel X-Ray 10/16/19 09:05 IMPRESSION: Findings suggestive of partial small bowel obstruction with a transition point at the level of the distal small bowel. Electronically Signed: Clif Peraza, at 14:34 EST , Service support , KUB X-Ray 10/17/19 05:55 IMPRESSION: Nonspecific bowel gas pattern. Previously administered oral contrast is now in the colon and rectum. Electronically Signed: Mando Ernst MD at 6:08 EST , Service support , general surgery - Dr Ledesma Operations: None Procedures: None Summary of Care Provided: The patient is a 78 year old F with a past medical history as listed in which includes previous episodes of small bowel obstruction which resolved spontaneously. She was admitted through the ED on 10/15/2018 with a complaint of nausea and vomiting. Symptoms started on the morning of admission and emesis was initially light-colored but gradually became dark brown-colored with no obvious blood. She has been having regular bowel movements without constipation or diarrhea and denied any abdominal pain. She had no fever chills or urinary symptoms. She had bowel perforation 5 years ago and had bowel resection done at [facility]. She had also had a history of total abdominal hysterectomy with nephrectomy and cholecystectomy as well as appendectomy. On admission, labs were essentially unremarkable. CT of the abdomen and pelvis without contrast showed small bowel obstruction. She was admitted and managed for distal partial small bowel obstruction. She was kept n.p.o. and initial attempt to pass an NG tube were unsuccessful. She was hydrated with IV fluids. General surgery was consulted and advocated conservative management. Subsequent x-ray of the small bowel done on 10/16/2019 showed partial small bowel obstruction with transition point at level of distal small bowel. She was still kept n.p.o. and hydrated with fluids. Repeat small bowel x-ray done on 10/17/2019 showed a nonspecific bowel gas pattern with previously administered oral contrast now in the colon and rectum. Per general surgery, she was started on clear liquids which was advanced slowly. Patient tolerated the clear liquids and tolerated the advance diet as well. She remained stable and was discharged home on 10/17/2019. She is to follow-up with her primary care doctor and general surgery. Patient seen and examined prior to discharge. She had no complaints and felt well. She denied any fever chills, nausea vomiting or diarrhea. She was passi ng gas and not had several bowel movements. Review of signs otherwise negative. Labs and vitals reviewed. Home medication reviewed and reconciled. o/e: Vital Signs Height 5 ft 1 in Weight: 130 lb 8.218 oz Weight in Pounds 130.5 lbs Pulse Ox 100 Temperature 97.8 F Pulse Rate 68 Respiratory Rate 18 Blood Pressure 138/58 Blood Pressure Position Semi-Fowlers [] General: Alert, Oriented x3, Cooperative, No apparent distress HEENT: Atraumatic, PERRLA, EOMI, Normocephalic Oral: Dry Mucosa Neck: Supple, No JVD, Negative Carotid Bruits Lungs: Clear to auscultation, Normal air movement, No rhonchi, No wheeze, No rales Cardiovascular: Regular rate, Regular Rhythm, Normal S1, Normal S2, No murmurs Abdomen: Bowel Sounds Present, Soft, Non Tender, No Hepato-splenomegaly, - - no distension Extremities: No clubbing, No cyanosis, No edema, Capillary Refill Less than 3 Seconds Skin: No rashes, No breakdown Musculoskeletal: No Tenderness to Palpation of Joints or Extremities Lymphatic: No Cervical, Supraclavicular, or Inguinal Adenopathy Neurological: Cranial nerves II-XII grossly intact, Neuro grossly intact, Motor Exam 5/5 strength throughout Psych/Mental Status: Normal Affect, Appropriate, Alert and oriented to time, place, person, mood and affect It must be noted that his sodium was 151 on day of discharge. This was likely due to all the IV fluids she had received as she had been n.p.o. since admission, and her chloride was also elevated at 122. Patient was however totally stable and she is to follow-up with her primary care doctor for repeat BMP within 1 week to follow sodium levels. Plan is for discharge home. Patient Problems: Active and Suspected Problems (Last Reviewed 07/25/19 @ 11:34 by Amina Tipton) Partial obstruction of small intestine (Acute) - Physical Exam Vitals/I&O's: Vital Signs Temp Pulse Resp BP Pulse Ox 97.8 F 68 18 138/58 H 100 10/17/19 08:14 10/17/19 08:14 10/17/19 08:14 10/17/19 08:14 10/17/19 08:14 Oxygen Delivery Method Room Air Weight: 130 lb 8.218 oz Body Mass Index (BMI) 24.6 Intake and Output for Last 24 Hours 10/15/19 10/16/19 10/17/19 23:59 23:59 23:59 Intake Total 170 / 170 1890.00 / 1890.00 965 / 965 Output Total 600 / 600 600 / 600 Balance 170 / 170 1290.00 / 1290.00 365 / 365 Microbiology Past 72 Hours 10/15/19 21:06 Urine, Clean Catch Urine Culture - Final Mixed Gram Positive Organisms Laboratory Results 10/17/19 06:14: WBC 7.3, RBC 4.05 L, Hgb 12.1, Hct 39.6, MCV 97.8, MCH 29.9, MCHC 30.6 L, RDW Std Deviation 47.4 H, RDW Coeff of Yariel 13.2, Plt Count 172, MPV 9.0, Immature Gran % (Auto) 0.100, Neut % (Auto) 82.9 H, Lymph % (Auto) 9.5 L, [place] % (Auto) 6.7, Eos % (Auto) 0.5, Baso % (Auto) 0.3, Absolute Neuts (auto) 6.1, Absolute Lymphs (auto) 0.70 L, Nucleated RBC % 0 10/17/19 06:14: Sodium 151 H, Potassium 4.6, Chloride 122 H, Carbon Dioxide 25.0, Anion Gap 4 L, BUN 28 H, Creatinine 1.24 H, Estim Creat Clear Calc 27.31, Est GFR (MDRD) Af Amer 53 L, Est GFR (MDRD) Non-Af 44 L, BUN/Creatinine Ratio 22.6 H, Glucose 102, Calcium 8.8 Current Medications Acetaminophen (Tylenol) 650 mg PO Q6H PRN PRN PRN Reason: Pain Score 1-3/Temp > 100.7 F Albuterol Sulfate (Ventolin Aerosols) 2.5 mg INHALATION Q4H PRN PRN PRN Reason: Shortness of breath, wheezing Budesonide/Formoterol Fumarate (Symbicort 160/4.5 Mcg Inhaler (Sp)) 1 - 2 puff INHALATION BID [facility] Last Admin: 10/17/19 10:16 Dose: 2 puff Documented by: Heparin Sodium (Porcine) (Heparin Na) 5,000 unit SC Q8 [facility] Last Admin: 10/17/19 15:04 Dose: 5,000 unit Documented by: Famotidine 20 mg/ Sodium (Chloride) 10 mls @ 300 mls/hr IV Q12 [facility] Last Infusion: 10/17/19 11:04 Dose: Infused Documented by: Losartan Potassium (Cozaar) 12.5 mg PO QHS [facility] Last Admin: 10/16/19 20:51 Dose: 12.5 mg Documented by: Montelukast Sodium (Singulair) 10 mg PO QHS [facility] Last Admin: 10/16/19 20:50 Dose: 10 mg Documented by: Morphine Sulfate () 1 - 2 mg IV Q3H PRN PRN PRN Reason: Pain Score 4-10/10 Ondansetron HCl (Zofran) 4 mg IV Q8H PRN PRN PRN Reason: NAUSEA/VOMITING Last Admin: 10/16/19 06:09 Dose: 4 mg Documented by: Promethazine HCl (Phenergan) 6.25 mg IV Q6H PRN PRN PRN Reason: NAUSEA/VOMITING Last Admin: 10/16/19 08:48 Dose: 6.25 mg Documented by: Sodium Chloride () 10 - 40 ml IV UD PRN PRN Reason: SALINE FLUSH Last Admin: 10/16/19 20:55 Dose: 10 ml Documented by: Spironolactone (Aldactone) 25 mg PO BID [facility] Last Admin: 10/17/19 10:16 Dose: 25 mg Documented by: Discharge Diet: Low fat/ Low Cholesterol Discharge Activity: Return to Normal Activity Weight Bearing Status: Weight bearing as tolerated Call your doctor if you observe: Fever of 101 or Higher, Inability to have a bowel movement - or pass gas, Shortness of breath, - - abdominal pain Home Medications: Medications to take at Discharge Albuterol Aerosols [Ventolin Aerosols] 2.5 mg INHALATION Q6H PRN PRN 03/20/15 Albuterol Inhaler [Ventolin Hfa] 2 puff INHALATION Q4H PRN PRN 03/20/15 Aspirin [Aspirin, Baby] 81 mg PO QHS 03/20/15 Dipyridamole [Persantine] 75 mg PO BID 03/20/15 Montelukast [Singulair] 10 mg PO QHS 03/20/15 Spironolactone [Aldactone] 25 mg PO BID 03/20/15 Torsemide [Demadex] 20 mg PO DAILY 03/20/15 Losartan Potassium 12.5 mg PO QHS 03/20/18 Budesonide/Formoterol 160/4.5 [Symbicort 160/4.5 Mcg Inhaler (SP)] 2 puff INHALATION BID 06/14/19 Omeprazole 40 mg PO SUTH 06/14/19 Systane 1 drp EACH EYE 4X/DAY 10/15/19 Primary Care Physician: Julius Sandoval MD [Primary Care Provider] - Please follow up with your Primary Care Physician in: one week Please Follow Up With: Antonio Ledesma MD When: 1-2 weeks Patient Instructions: Small Bowel Obstruction Disposition: Home Minutes spent on discharge:: 40 Patient Condition:: Stable Medical Necessity - Tobacco Use Smoking Status: Never smoker Meaningful Use Info Meaningful Use Diagnoses (Choose all that apply): None applicable Code Visit Inpatient E&M: 28518 Disch Hosp
--- NOTE | 2019-10-18 14:38 | CASEMGMT ---
RN SKYE DC PHONE CALL DC DATE: 10.17.2019 DC Disposition: Home Diagnosis on Discharge: PSBO LACE/STRATA: 08/21 Intro role of CM to patient via home phone. Pt states she is doing very well, does not have questions re: instructions or medications. States her care was very good and no care improvement suggestions were given. Fernanda ELISEN RN AC
== END 2019-10-17 16:13 | disposition home or self-care (01) | DRG 389 ==
LOC: ED 19:14 → MS3 21:12
PROVIDERS: Admitting Provider Hospitalist; Emergency Provider Emergency Medicine; PCP Family Medicine; Visit Provider Student in an Organized Health Care Education/Training Program
DX: K56.600 Partial intestinal obstruction, unspecified as to cause (principal); I13.0 Hypertensive heart and chronic kidney disease with heart failure and stage 1 through stage 4 chronic kidney disease, or unspecified chronic kidney disease; I50.32 Chronic diastolic (congestive) heart failure; N18.3 Chronic kidney disease, stage 3 (moderate); K21.9 Gastro-esophageal reflux disease without esophagitis; J45.909 Unspecified asthma, uncomplicated; I25.10 Atherosclerotic heart disease of native coronary artery without angina pectoris; Z90.49 Acquired absence of other specified parts of digestive tract; I25.2 Old myocardial infarction; Z86.73 Personal history of transient ischemic attack (TIA), and cerebral infarction without residual deficits; Z79.51 Long term (current) use of inhaled steroids; Z79.82 Long term (current) use of aspirin; Z79.899 Other long term (current) drug therapy; Z90.13 Acquired absence of bilateral breasts and nipples; Z85.42 Personal history of malignant neoplasm of other parts of uterus; Z85.3 Personal history of malignant neoplasm of breast
CPT/HCPCS: 36415; 74018; 74176; 74250; 80048; 80053; 81001; 83605; 84484; 85025; 87086; 87088; 94640; 97162; 97165; 99251; 99284; J7030; A4216; G0463; J2405; J3490

== ENCOUNTER → 2019-11-05 | Outpatient (CLI) | payer MEDICARE, SELFPAY ==
[2019-10-15 22:40] VITALS: BMI 24.6
[2019-11-05 10:55] LABS: Bacteria 0 SEEN /hpf (None Seen); Mucous, Urine 0 SEEN /hpf (<or=2+)
[2019-11-05 11:06] LABS: Color, Urine Yellow (Yellow); Glucose, Dipstick Normal (Normal); Ketone-Dipstick Negative (Negative); Leukocyte Esterase-Dipstick 25 /ul (Negative); Nitrite-Dipstick Negative (Negative); Occult Blood-Urine 50 /ul (Negative); Protein-Dipstick Negative (Negative); Specific Gravity, Urine 1.005 (1.002-1.030); Urine Bilirubin Dipstick Negative (Negative); Urine Clarity Clear (Clear); Urine Urobilinogen Normal (Normal)
[2019-11-05 11:38] LABS: Red Blood Cells-Urine 0-5 SEEN /hpf (0-5); Squamous Epithelial Cells - UA 0-5 SEEN /hpf (5-10); White Blood Cells 0-5 SEEN /hpf (0-5)
== END | disposition home or self-care (01) ==
PROVIDERS: PCP Family Medicine; Referring Provider Surgery; Visit Provider Surgery
DX: R50.9 Fever, unspecified (principal)
CPT/HCPCS: 81001; 87086; 87088

== ENCOUNTER → 2020-07-02 | Outpatient (CLI) | payer MEDICARE, SELFPAY ==
[2019-10-15 22:40] VITALS: BMI 24.6
[2020-07-02 13:18] LABS: PTHIN 80.8 pg/mL (18.4-80.1)
== END | disposition home or self-care (01) ==
LOC: POLAB3 11:58
PROVIDERS: PCP Family Medicine; Visit Provider Internal Medicine Nephrology
DX: N18.30 Chronic kidney disease, stage 3 unspecified (principal)
CPT/HCPCS: 36415; 83970

== ENCOUNTER 2020-07-24 12:41 | Emergency (ER) | payer MEDICARE, SELFPAY ==
[2019-10-15 22:40] VITALS: BMI 24.6
[2020-07-24 12:42] VITALS: BP 139/62; PULSE 71; RESP 18; TEMP 36.3; O2SAT 100; BMI 25.3
[2020-07-24 14:43] VITALS: BP 139/78; PULSE 89; RESP 18; O2SAT 99
--- NOTE | 2020-07-24 15:50 | ED.VIS.LOWEX ---
History of Present Illness Chief Complaint: Laceration Narrative: Patient presenting for evaluation secondary to a leg laceration. Patient was using a log splitter, log rolled down her left balbuena causing her to get a skin tear. She is unsure of her last tetanus. Patient states that there is moderate pain worse with palpation. She is able to ambulate. Review of systems otherwise negative. Past Medical History - Allergies and Home Meds Allergies/Adverse Reactions: Allergies clarithromycin [From Biaxin] Allergy (Verified 07/24/20 12:42) Fever diazepam [From Valium] Allergy (Verified 07/24/20 12:42) seizures SEIZURES diphenhydramine HCl [From Benadryl] Allergy (Verified 07/24/20 12:42) difficulty breathing esomeprazole magnesium [From Nexium] Allergy (Verified 07/24/20 12:42) chest pain NSAIDS (Non-Steroidal Anti-Inflamma Allergy (Verified 07/24/20 12:42) Other CKD STAGE 4 Penicillins Allergy (Verified 07/24/20 12:42) Rash pentazocine lactate [From Talwin] Allergy (Verified 07/24/20 12:42) quit breathing Sulfa (Sulfonamide Antibiotics) Allergy (Verified 07/24/20 12:42) Rash sulfur dioxide Allergy (Verified 07/24/20 12:42) massive headaches Primary Care Physician: Julius Sandoval MD [Primary Care Provider] - Past Medical History: - - Coronary artery disease, CKD, hypertension Surgical History: cholecystectomy, hysterectomy, mastectomy, - - Bowel resection. Lives: Spouse/ Significant Other Smoking Status: Never smoker Alcohol: None Drugs: None - Family History Maternal Family History: Family History (Last Reviewed 07/25/19 @ 11:34 by Amina Tipton) Mother Cancer Thyroid disorder Father Heart disease Family History: Reports: No pertinent history Paternal Family History: Family History (Last Reviewed 07/25/19 @ 11:34 by Amina Tipton) Mother Cancer Thyroid disorder Father Heart disease Family History: Reports: No pertinent history Review of Systems All systems negative except as indicated Skin: Reports: Wounds Physical Exam Vital Signs/Narrative: Vital Signs Temp Pulse Resp BP Pulse Ox 07/24/20 14:43 89 18 139/78 H 99 07/24/20 12:42 97.3 F L 71 18 139/62 H 100 Inital Vital Signs reviewed: Yes - Extremity Exam Left Tib Fib: - - Examination of the patient's left lower extremity shows a large skin tear approximately 10 cm x 10 cm over the anterior portion of the patient's balbuena with exposed fat tissue. No active bleeding. General: Well nourished, Well developed Head: Normocephalic, Atraumatic Eyes: EOMI ENT: No Trauma Neck: Full ROM Cardiovascular: Regular rate, Regular rhythm, - - 2+ PT pulses Respiratory: No distress Skin: Normal color Neurological: Alert, Oriented x3 Psychological: Normal affect Diagnostic/Tx/Re-eval - Medical Decision Making Patient presented secondary to a skin tear. It was repaired as noted in the procedure note. Patient tolerated this well. Tetanus status was updated. Due to the large area involved I will refer the patient to the wound center. Patient was educated on signs and symptoms for which to return. Procedures - Lacerations No standard instances Comment: 10 cm x 10 cm skin tear was anesthetized using lidocaine with epinephrine total of 10 cc were utilized. The wound was explored, there is no evidence of foreign material. It was copiously irrigated and scrubbed with chlorhexidine and sterile saline. Skin flap was then reapproximated. I utilized both Steri-Strips as well as #4 simple interrupted 4-0 nylon sutures. ED Disposition - Plan for ED Patient: Disposition: Home or Assisted Living Diagnosis: Skin tear Instructions: ED Laceration All Closures Additional Instructions: Call the wound center on Monday for an appointment to be seen in follow-up. [phone] If you cannot arrange follow-up with the wound center, be seen by your primary care doctor within 3 to 5 days for wound check and suture removal
[2020-07-24] MEDS: Diphth,Pertuss(Acell),Tet Vac 0.5 ML Vial IM (15:52)
[2020-07-24 16:02] VITALS: BP 127/89; PULSE 81; RESP 18; O2SAT 100
--- NOTE | 2020-07-24 16:03 | ED.RN ---
THIS NURSE REVIEWED D/C INSTRUCTIONS WITH PT. PT VERBALIZED UNDERSTANDING OF INSTRUCTIONS. DRESSING APPLIED. PT DENIES FURTHER NEEDS OR QUESTIONS AT THIS TIME
--- NOTE | 2020-07-24 16:08 | ED.RN ---
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
== END 2020-07-24 16:08 | disposition home or self-care (01) ==
PROVIDERS: Emergency Provider Emergency Medicine; PCP Family Medicine
DX: S81.812A Laceration without foreign body, left lower leg, initial encounter (principal); N18.9 Chronic kidney disease, unspecified; I12.9 Hypertensive chronic kidney disease with stage 1 through stage 4 chronic kidney disease, or unspecified chronic kidney disease; I25.10 Atherosclerotic heart disease of native coronary artery without angina pectoris; Z79.899 Other long term (current) drug therapy; Z23 Encounter for immunization; W26.8XXA Contact with other sharp object(s), not elsewhere classified, initial encounter; Y93.89 Activity, other specified; Y92.89 Other specified places as the place of occurrence of the external cause; Y99.8 Other external cause status
CPT/HCPCS: 12004; 90471; 90715; 99283

== ENCOUNTER 2020-08-12 09:30 | Outpatient (RCR) | payer MEDICARE, SELFPAY ==
[2020-07-29 09:44] VITALS: BP 130/50; PULSE 76; RESP 16; TEMP 36.1; BMI 24.9
--- NOTE | 2020-07-29 10:34 | PCM.WC.PN ---
(1) Dehiscence of surgical wound Status: Acute Code(s): T81.31XA - Disruption of external operation (surgical) wound, not elsewhere classified, initial encounter (2) Congestive heart failure Status: Chronic Code(s): I50.9 - Heart failure, unspecified (3) Stage III chronic kidney disease Status: Chronic Code(s): N18.3 - Chronic kidney disease, stage 3 (moderate) (4) Nonhealing nonsurgical wound limited to breakdown of skin Status: Acute Code(s): T14.8XXA - Other injury of unspecified body region, initial encounter Type of Wound Date of Service: 07/29/20 Chief Complaint: Left lower leg laceration dehiscence History of Wound: 79-year-old white female that was cutting wood with her for the winter. A log fell off the pile and hit her on her left lower leg and caused a huge laceration. Seen in the emergency room for suturing on 07/24/2020. They Steri-Stripped the wound and tacked the Steri-Strips down not wound. She has been wearing a thin stockinette over top to hold in place and now noticed some swelling and redness in her left anterior ankle area. She is having increased in pain and skin is warm to touch. - Physical Exam Vital Signs Temp Pulse Resp BP 96.9 F L 76 16 130/50 H 07/29/20 09:44 07/29/20 09:44 07/29/20 09:44 07/29/20 09:44 Wound Measurements and Assessment WC - Nurse 1 - General Ulcer Measurement Start: 07/29/20 09:33 Freq: Status: Active Protocol: Activity Type Activity Date Activity User E-Sign Co-Sign Detail Recorded Client Recorded Date Recorded By Document 07/29/20 09:44 [facility] [id number] 07/29/20 09:54 [facility] 07/29/20 09:44 Wound Center Nurse 1 [Ulcer Assessment] #1- L RAM -Combined with other wound No -Current Size (cm) - Length 0.1 -Current Size (cm) - Width 0.1 -Current Size (cm) - Depth 0.1 -Total Square Cm 0.01 -Date of Last Picture (Recall this 07/29/20 field) -Photo Taken Yes -Epithelialization None Present -Tunneling No -Undermining/Tunneling No -Circular Undermining No -Exudate Amt Medium -Exudate Type Serosanguineous -Wound Margin Distinct, Outline Attached -Granulation Amt Small (1-33%) -Granulation Quality Red -Texture (Ade-wound Skin Appearance) Assessed -Moisture (Ade-wound Skin Appearance Assessed ) -Color (Ade-wound Skin Appearance) Assessed, Erythema, Hemosiderin Staining -Temperature (Ade-wound Skin No Abnormality Appearance) (Pt Warm) -Tenderness on Palpation (Ade-wound No Skin Appearance) -Foul Odor after Cleansing No [Edema Assessment] -Lower Limb Edema Present Yes -Right Calf (cm) 39.5 -Right Ankle (cm) 27.3 -Left Calf (cm) 39 -Left Ankle (cm) 28 WC - Nurse 2 - General Ulcer CM Notes Start: 07/29/20 09:33 Freq: Status: Active Protocol: Activity Type Activity Date Activity User E-Sign Co-Sign Detail Recorded Client Recorded Date Recorded By Document 07/29/20 10:04 MW [id number] 07/29/20 10:15 MW 07/29/20 10:04 Wound Center Nurse 2 [Procedure/Treatment] #1- L RAM -Time 10:04 -Correct Patient Yes -Correct Side, Site, Position Yes -Correct Procedure Yes -Procedure Performed Yes -Type of Procedure Debridement -Clinical Debridement Subcutaneous -Tissue Removed Subcutaneous -Post Debridement (cm) - Length 4.0 -Post Debridement (cm) - Width 0.5 -Post Debridement (cm) - Depth 0.1 -Total Square (Post) (cm) 2.00 -Area of Debridement (cm) - Length 4.0 -Area of Debridement (cm) - Width 0.5 -Total Square (Area) (cm) 2.00 -Tunneling No -Undermining/Tunneling No -Circular Undermining No -Wound/Ulcer Outcome Not Healed -Ulcer Cleansing Rinsed/ Irrigated with Saline -Foul Odor after Cleansing No -Bioengineered Tissue No -Bleeding Controlled with Pressure -Offloading No -Debridement - Subq, 1st 20sq cm Yes [See Physician Procedure note for Specifics] Pain Scale: 0-10 Numeric [Pain] -Is Patient Pain Free? Yes ROSS - Nurse 3 - General Ulcer D/C NN Start: 07/29/20 09:33 Freq: Status: Active Protocol: Activity Type Activity Date Activity User E-Sign Co-Sign Detail Recorded Client Recorded Date Recorded By Document 07/29/20 10:28 BM [id number] 07/29/20 10:29 BM 07/29/20 10:28 Wound Care Nurse 3 [Wound Dressing] #1- L RAM -Ulcer Cleansing Rinsed/ Irrigated with Saline -Foul Odor after Cleansing No -Primary Dressing Applied Fibracol Plus 4x4,NonAdherent Contact Layer -Primary Dressing Covered/Secured Dry Gauze & with Roll Gauze, Secured with Tape -Fibracol Plus 4x4 1 [Compression Applied] Left -Tubular Bandage Double Layer -Size of Tubigrip Used Size F -Size F ($) 1 [Post Procedure Tolerated] -Treatment Response Procedure Tolerated Well Pain Scale: 0-10 Numeric [Pain] -Is Patient Pain Free? Yes WC - Visit Discharge [Visit Discharge Information] -Discharge Condition Stable -Ambulatory Status Ambulatory -Transportation Private Auto -Accompanied by Debridement Note Post-Debridement Measurements/Treatment WC - Nurse 2 - General Ulcer CM Notes Start: 07/29/20 09:33 Freq: Status: Active Protocol: Activity Type Activity Date Activity User E-Sign Co-Sign Detail Recorded Client Recorded Date Recorded By Document 07/29/20 10:04 MW [id number] 07/29/20 10:15 MW 07/29/20 10:04 Wound Center Nurse 2 #1- L RAM -Time 10:04 -Correct Patient Yes -Correct Side, Site, Position Yes -Correct Procedure Yes -Procedure Performed Yes -Type of Procedure Debridement -Clinical Debridement Subcutaneous -Tissue Removed Subcutaneous -Post Debridement (cm) - Length 4.0 -Post Debridement (cm) - Width 0.5 -Post Debridement (cm) - Depth 0.1 -Total Square (Post) (cm) 2.00 -Area of Debridement (cm) - Length 4.0 -Area of Debridement (cm) - Width 0.5 -Total Square (Area) (cm) 2.00 -Tunneling No -Undermining/Tunneling No -Circular Undermining No -Wound/Ulcer Outcome Not Healed -Ulcer Cleansing Rinsed/ Irrigated with Saline -Foul Odor after Cleansing No -Bioengineered Tissue No -Bleeding Controlled with Pressure -Offloading No -Debridement - Subq, 1st 20sq cm Yes Pain Scale: 0-10 Numeric Is Patient Pain Free? Yes - Nurse 3 - General Ulcer D/C NN Start: 07/29/20 09:33 Freq: Status: Active Protocol: Activity Type Activity Date Activity User E-Sign Co-Sign Detail Recorded Client Recorded Date Recorded By Document 07/29/20 10:28 [facility] [id number] 07/29/20 10:29 [facility] 07/29/20 10:28 Wound Care Nurse 3 #1- L RAM -Ulcer Cleansing Rinsed/ Irrigated with Saline -Foul Odor after Cleansing No -Primary Dressing Applied Fibracol Plus 4x4,NonAdherent Contact Layer -Primary Dressing Covered/Secured with Dry Gauze & Roll Gauze, Secured with Tape -Fibracol Plus 4x4 1 Left -Tubular Bandage Double Layer -Size of Tubigrip Used Size F -Size F ($) 1 Treatment Response Procedure Tolerated Well Pain Scale: 0-10 Numeric Is Patient Pain Free? Yes WC - Visit Discharge Discharge Condition Stable Ambulatory Status Ambulatory Transportation Private Auto Accompanied by
--- NOTE | 2020-07-29 10:41 | HP.PCM_ITS ---
(1) Dehiscence of surgical wound Status: Acute Code(s): T81.31XA - Disruption of external operation (surgical) wound, not elsewhere classified, initial encounter (2) Congestive heart failure Status: Chronic Code(s): I50.9 - Heart failure, unspecified (3) Stage III chronic kidney disease Status: Chronic Code(s): N18.3 - Chronic kidney disease, stage 3 (moderate) (4) Nonhealing nonsurgical wound limited to breakdown of skin Status: Acute Code(s): T14.8XXA - Other injury of unspecified body region, initial encounter History of Present Illness Date of Service: 07/29/20 Chief Complaint: Follow-up left anterior balbuena dehisced laceration History of Wound: He 79-year-old white female that was cutting wood her for the winter. When a piece of wood fell off the pile and hit her left balbuena. Patient was taken to the emergency room on 07/24/2000 where it was Steri-Stripped and secured with sutures and bandaged. She has been wearing a thin stockinette over top to hold in place. Then she found her leg was starting to increase in swelling and redness in the ankle area below the laceration warm to touch and increased pain. Patient was referred to us Past Medical History Past Medical History: Chronic Problems (Last Reviewed 07/25/19 @ 11:34 by Amina Tipton) Stage III chronic kidney disease (Chronic) GERD (gastroesophageal reflux disease) (Chronic) Asthma (Chronic) CAD (coronary artery disease) (Chronic) Congestive heart failure (Chronic) Hypertension (Chronic) Surgical History: cholecystectomy, hysterectomy, mastectomy, - - Bowel r esection. Allergies/Adverse Reactions: Allergies clarithromycin [From Biaxin] Allergy (Verified 07/29/20 09:55) Fever diazepam [From Valium] Allergy (Verified 07/29/20 09:55) seizures SEIZURES diphenhydramine HCl [From Benadryl] Allergy (Verified 07/29/20 09:55) difficulty breathing esomeprazole magnesium [From Nexium] Allergy (Verified 07/29/20 09:55) chest pain NSAIDS (Non-Steroidal Anti-Inflamma Allergy (Verified 07/29/20 09:55) Other CKD STAGE 4 Penicillins Allergy (Verified 07/29/20 09:55) Rash pentazocine lactate [From Talwin] Allergy (Verified 07/29/20 09:55) quit breathing Sulfa (Sulfonamide Antibiotics) Allergy (Verified 07/29/20 09:55) Rash sulfur dioxide Allergy (Verified 07/29/20 09:55) massive headaches Home Medications: Ambulatory Orders Medication Instructions Recorded Albuterol Aerosols [Ventolin 2.5 mg INHALATION Q6H PRN PRN 03/20/15 Aerosols] Albuterol Inhaler [Ventolin Hfa] 2 puff INHALATION Q4H PRN PRN 03/20/15 Aspirin [Aspirin, Baby] 81 mg PO QHS 03/20/15 Dipyridamole [Persantine] 75 mg PO BID 03/20/15 Montelukast [Singulair] 10 mg PO QHS 03/20/15 Spironolactone [Aldactone] 25 mg PO BID 03/20/15 Torsemide [Demadex] 10 mg PO DAILY 03/20/15 Losartan Potassium 12.5 mg PO QHS 03/20/18 Budesonide/Formoterol 160/4.5 2 puff INHALATION BID 06/14/19 [Symbicort 160/4.5 Mcg Inhaler (SP)] Omeprazole 40 mg PO DAILY PRN 06/14/19 Febuxostat [Uloric] 40 mg PO DAILY 07/24/20 - Family History Maternal Family History: Family History (Last Reviewed 07/25/19 @ 11:34 by Amina Tipton) Mother Cancer Thyroid disorder Father Heart disease No pertinent history Paternal Family History: Family History (Last Reviewed 07/25/19 @ 11:34 by Amina Tipton) Mother Cancer Thyroid disorder Father Heart disease No pertinent history Smoking Status: Never smoker Review of Systems Constitutional: Denies: Chills, Fever Eyes: Denies: Blurred vision, Drainage, Pain HEENT: Denies: Difficulty Hearing, Difficulty Swallowing, Sore Throat, Visual Changes Cardiovascular: Denies: Chest Pain, Palpitations, Syncope Respiratory: Denies: Cough, Shortness of Breath Gastrointestinal: Denies: Abdominal Pain, Nausea, Vomiting Genitourinary: Denies: Dysuria, Frequency Musculoskeletal: Denies: Joint Pain, Muscle pain Skin: Reports: Wounds - Left balbuena laceration dehiscing. Denies: Jaundice, Rash Neurological: Denies: Balance problems, Change in Speech, Difficulty swallowing, Focal weakness Psychiatric: Denies: Anxiety, Depression Endocrine: Denies: Change in Body Habitus Hematologic/ Lymphatic: Denies: Adenopathy - Physical Exam Vital Signs Temp Pulse Resp BP 96.9 F L 76 16 130/50 H 07/29/20 09:44 07/29/20 09:44 07/29/20 09:44 07/29/20 09:44 General: Oriented x3, Cooperative, Well developed HEENT: Atraumatic, PERRLA Oral: Moist Mucosa Neck: Supple, No JVD Lungs: Clear to auscultation, Normal air movement Cardiovascular: Regular rate, Regular Rhythm Abdomen: Bowel Sounds Present, Soft, Non Tender, No Hepato-splenomegaly Extremities: No clubbing, Edema, Tenderness - Redness and ankle anterior with pain above laceration and a upside down V shape with dehiscence on the lateral side, - Wound Measurements and Assessment WC - Nurse 1 - General Ulcer Measurement Start: 07/29/20 09:33 Freq: Status: Active Protocol: Activity Type Activity Date Activity User E-Sign Co-Sign Detail Recorded Client Recorded Date Recorded By Document 07/29/20 09:44 [facility] [id number] 07/29/20 09:54 [facility] 07/29/20 09:44 Wound Center Nurse 1 [Ulcer Assessment] #1- L BALBUENA -Combined with other wound No -Current Size (cm) - Length 0.1 -Current Size (cm) - Width 0.1 -Current Size (cm) - Depth 0.1 -Total Square Cm 0.01 -Date of Last Picture (Recall this 07/29/20 field) -Photo Taken Yes -Epithelialization None Present -Tunneling No -Undermining/Tunneling No -Circular Undermining No -Exudate Amt Medium -Exudate Type Serosanguineous -Wound Margin Distinct, Outline Attached -Granulation Amt Small (1-33%) -Granulation Quality Red -Texture (Ade-wound Skin Appearance) Assessed -Moisture (Ade-wound Skin Appearance Assessed ) -Color (Ade-wound Skin Appearance) Assessed, Erythema, Hemosiderin Staining -Temperature (Ade-wound Skin No Abnormality Appearance) (Pt Warm) -Tenderness on Palpation (Ade-wound No Skin Appearance) -Foul Odor after Cleansing No [Edema Assessment] -Lower Limb Edema Present Yes -Right Calf (cm) 39.5 -Right Ankle (cm) 27.3 -Left Calf (cm) 39 -Left Ankle (cm) 28 WC - Nurse 2 - General Ulcer CM Notes Start: 07/29/20 09:33 Freq: Status: Active Protocol: Activity Type Activity Date Activity User E-Sign Co-Sign Detail Recorded Client Recorded Date Recorded By Document 07/29/20 10:04 MW [id number] 07/29/20 10:15 MW 07/29/20 10:04 Wound Center Nurse 2 [Procedure/Treatment] #1- L BALBUENA -Time 10:04 -Correct Patient Yes -Correct Side, Site, Position Yes -Correct Procedure Yes -Procedure Performed Yes -Type of Procedure Debridement -Clinical Debridement Subcutaneous -Tissue Removed Subcutaneous -Post Debridement (cm) - Length 4.0 -Post Debridement (cm) - Width 0.5 -Post Debridement (cm) - Depth 0.1 -Total Square (Post) (cm) 2.00 -Area of Debridement (cm) - Length 4.0 -Area of Debridement (cm) - Width 0.5 -Total Square (Area) (cm) 2.00 -Tunneling No -Undermining/Tunneling No -Circular Undermining No -Wound/Ulcer Outcome Not Healed -Ulcer Cleansing Rinsed/ Irrigated with Saline -Foul Odor after Cleansing No -Bioengineered Tissue No -Bleeding Controlled with Pressure -Offloading No -Debridement - Subq, 1st 20sq cm Yes [See Physician Procedure note for Specifics] Pain Scale: 0-10 Numeric [Pain] -Is Patient Pain Free? Yes - Nurse 3 - General Ulcer D/C NN Start: 07/29/20 09:33 Freq: Status: Active Protocol: Activity Type Activity Date Activity User E-Sign Co-Sign Detail Recorded Client Recorded Date Recorded By Document 07/29/20 10:28 [facility] [id number] 07/29/20 10:29 [facility] 07/29/20 10:28 Wound Care Nurse 3 [Wound Dressing] #1- L BALBUENA -Ulcer Cleansing Rinsed/ Irrigated with Saline -Foul Odor after Cleansing No -Primary Dressing Applied Fibracol Plus 4x4,NonAdherent Contact Layer -Primary Dressing Covered/Secured Dry Gauze & with Roll Gauze, Secured with Tape -Fibracol Plus 4x4 1 [Compression Applied] Left -Tubular Bandage Double Layer -Size of Tubigrip Used Size F -Size F ($) 1 [Post Procedure Tolerated] -Treatment Response Procedure Tolerated Well Pain Scale: 0-10 Numeric [Pain] -Is Patient Pain Free? Yes WC - Visit Discharge [Visit Discharge Information] -Discharge Condition Stable -Ambulatory Status Ambulatory -Transportation Private Auto -Accompanied by Musculoskeletal: No Tenderness to Palpation of Joints or Extremities Lymphatic: No Cervical, Supraclavicular, or Inguinal Adenopathy Neurological: Cranial nerves II-XII grossly intact, Neuro grossly intact Psych/Mental Status: Normal Affect, Appropriate Debridement Note Post-Debridement Measurements/Treatment WC - Nurse 2 - General Ulcer CM Notes Start: 07/29/20 09:33 Freq: Status: Active Protocol: Activity Type Activity Date Activity User E-Sign Co-Sign Detail Recorded Client Recorded Date Recorded By Document 07/29/20 10:04 MW [id number] 07/29/20 10:15 MW 07/29/20 10:04 Wound Center Nurse 2 #1- L BALBUENA -Time 10:04 -Correct Patient Yes -Correct Side, Site, Position Yes -Correct Procedure Yes -Procedure Performed Yes -Type of Procedure Debridement -Clinical Debridement Subcutaneous -Tissue Removed Subcutaneous -Post Debridement (cm) - Length 4.0 -Post Debridement (cm) - Width 0.5 -Post Debridement (cm) - Depth 0.1 -Total Square (Post) (cm) 2.00 -Area of Debridement (cm) - Length 4.0 -Area of Debridement (cm) - Width 0.5 -Total Square (Area) (cm) 2.00 -Tunneling No -Undermining/Tunneling No -Circular Undermining No -Wound/Ulcer Outcome Not Healed -Ulcer Cleansing Rinsed/ Irrigated with Saline -Foul Odor after Cleansing No -Bioengineered Tissue No -Bleeding Controlled with Pressure -Offloading No -Debridement - Subq, 1st 20sq cm Yes Pain Scale: 0-10 Numeric Is Patient Pain Free? Yes WC - Nurse 3 - General Ulcer D/C NN Start: 07/29/20 09:33 Freq: Status: Active Protocol: Activity Type Activity Date Activity User E-Sign Co-Sign Detail Recorded Client Recorded Date Recorded By Document 07/29/20 10:28 BM [id number] 07/29/20 10:29 BM 07/29/20 10:28 Wound Care Nurse 3 #1- L BALBUENA -Ulcer Cleansing Rinsed/ Irrigated with Saline -Foul Odor after Cleansing No -Primary Dressing Applied Fibracol Plus 4x4,NonAdherent Contact Layer -Primary Dressing Covered/Secured with Dry Gauze & Roll Gauze, Secured with Tape -Fibracol Plus 4x4 1 Left -Tubular Bandage Double Layer -Size of Tubigrip Used Size F -Size F ($) 1 Treatment Response Procedure Tolerated Well Pain Scale: 0-10 Numeric Is Patient Pain Free? Yes WC - Visit Discharge Discharge Condition Stable Ambulatory Status Ambulatory Transportation Private Auto Accompanied by Wound debrided: Left balbuena dehisced wound Type of Debridement: Excisional debridement Anesthesia Used: 5% Lidocaine Gel Depth: Down to and including healthy tissue Instrument Used: 3mm curette Tissue Removed: Fibrin Severity: Limited To Skin Breakdown Amount of bleeding with debridement: Mild Bleeding Controlled with: Compression and gauze Patient tolerated procedure well Assessment/Plan Aerobic and anaerobic culture obtained Active Problems (Last Reviewed 07/25/19 @ 11:34 by Amina Tipton) Dehiscence of surgical wound (Acute) Nonhealing nonsurgical wound limited to breakdown of skin (Acute) Stage III chronic kidney disease (Chronic) Congestive heart failure (Chronic) Assessment: Dehisced surgical laceration to left lower balbuena. Edema swelling infection left lower leg. History of CHF Plan: Wash leg with antibacterial soap. Apply Fibracol to open areas. Cover with Adaptic gauze Rajni. Double layer Tubigrip. Follow-up in 1 week. Start ciprofloxacin 500 mg 1 p.o. twice daily. We will call with results of cultures if need to be changing antibiotic
[2020-08-05 10:45] VITALS: BP 135/64; PULSE 69; RESP 16; TEMP 35.9; BMI 24.9
--- NOTE | 2020-08-05 12:43 | PCM.WC.PN ---
(1) Dehiscence of surgical wound Status: Acute Qualifiers: Encounter type: subsequent encounter Qualified Code(s): T81.31XD - Disruption of external operation (surgical) wound, not elsewhere classified, subsequent encounter Code(s): T81.31XA - Disruption of external operation (surgical) wound, not elsewhere classified, initial encounter (2) Congestive heart failure Status: Chronic Code(s): I50.9 - Heart failure, unspecified (3) Stage III chronic kidney disease Status: Chronic Code(s): N18.3 - Chronic kidney disease, stage 3 (moderate) (4) Nonhealing nonsurgical wound limited to breakdown of skin Status: Acute Code(s): T14.8XXA - Other injury of unspecified body region, initial encounter Type of Wound Date of Service: 08/05/20 Chief Complaint: Follow-up left anterior balbuena dehisced laceration History of Wound: He 79-year-old white female that was cutting wood her for the winter. When a piece of wood fell off the pile and hit her left balbuena. Patient was taken to the emergency room on 07/24/2000 where it was Steri-Stripped and secured with sutures and bandaged. She has been wearing a thin stockinette over top to hold in place. Then she found her leg was starting to increase in swelling and redness in the ankle area below the laceration warm to touch and increased pain. Patient was referred to us Progress of Wound: The flap laceration is taking hold and healing. She was positive on her cultures and was started on ciprofloxacin she will finish that. She seems to be healing well with the Fibracol and is tolerating the compression well. - Physical Exam Vital Signs Temp Pulse Resp BP 96.7 F L 69 16 135/64 H 08/05/20 10:45 08/05/20 10:45 08/05/20 10:45 08/05/20 10:45 General: Oriented x3, Cooperative, Well developed HEENT: Atraumatic, PERRLA Oral: Moist Mucosa Neck: Supple, No JVD Lungs: Clear to auscultation, Normal air movement Cardiovascular: Regular rate, Regular Rhythm Abdomen: Bowel Sounds Present, Soft, Non Tender, No Hepato-splenomegaly Extremities: No clubbing, No edema Skin: Ulcer/ Wound - Left balbuena laceration flap Wound Measurements and Assessment WC - Nurse 1 - General Ulcer Measurement Start: 07/29/20 09:33 Freq: Status: Active Protocol: Activity Type Activity Date Activity User E-Sign Co-Sign Detail Recorded Client Recorded Date Recorded By Document 08/05/20 10:45 [facility] [id number] 08/05/20 10:51 [facility] 08/05/20 10:45 Wound Center Nurse 1 [Ulcer Assessment] #1- L BALBUENA -Combined with other wound No -Current Size (cm) - Length 4.4 -Current Size (cm) - Width 5.7 -Current Size (cm) - Depth 0.1 -Total Square Cm 25.08 -Photo Taken Yes -Tunneling No -Undermining/Tunneling No -Circular Undermining No -Exudate Amt Small -Exudate Type Sanguineous -Wound Margin Distinct, Outline Attached -Granulation Amt None Present (0 %) -Slough/Fibrin Yes -Necrosis Amt Large (67-100%) -Necrotic Tissue Type Eschar -Texture (Ade-wound Skin Appearance) Assessed, Scarring -Moisture (Ade-wound Skin Appearance Assessed,Dry/ ) Scaly -Color (Ade-wound Skin Appearance) Assessed -Temperature (Ade-wound Skin No Abnormality Appearance) (Pt Warm) -Tenderness on Palpation (Ade-wound Yes Skin Appearance) -Ulcer Cleansing Rinsed/ Irrigated with Saline -Foul Odor after Cleansing No -Anesthetic Used 4% Lidocaine Solution [Edema Assessment] -Lower Limb Edema Present Yes -Left Calf (cm) 37.5 -Left Ankle (cm) 23.1 - Nurse 2 - General Ulcer CM Notes Start: 07/29/20 09:33 Freq: Status: Active Protocol: Activity Type Activity Date Activity User E-Sign Co-Sign Detail Recorded Client Recorded Date Recorded By Document 08/05/20 11:07 [id number] 08/05/20 11:11 MW 08/05/20 11:07 Wound Center Nurse 2 [Procedure/Treatment] #1- L BALBUENA -Time 11:08 -Correct Patient Yes -Correct Side, Site, Position Yes -Correct Procedure Yes -Procedure Performed Yes -Type of Procedure Debridement -Clinical Debridement Subcutaneous -Tissue Removed Subcutaneous -Post Debridement (cm) - Length 4.2 -Post Debridement (cm) - Width 0.5 -Post Debridement (cm) - Depth 0.1 -Total Square (Post) (cm) 2.10 -Area of Debridement (cm) - Length 4.2 -Area of Debridement (cm) - Width 0.5 -Total Square (Area) (cm) 2.10 -Tunneling No -Undermining/Tunneling No -Circular Undermining No -Wound/Ulcer Outcome Not Healed -Ulcer Cleansing Rinsed/ Irrigated with Saline -Foul Odor after Cleansing No -Bioengineered Tissue No -Bleeding Controlled with Pressure -Offloading No -Treatment Response Procedure Tolerated Well -Debridement - Subq, 1st 20sq cm Yes [See Physician Procedure note for Specifics] Pain Scale: 0-10 Numeric [Pain] -Is Patient Pain Free? Yes WC - Nurse 3 - General Ulcer D/C NN Start: 07/29/20 09:33 Freq: Status: Active Protocol: Activity Type Activity Date Activity User E-Sign Co-Sign Detail Recorded Client Recorded Date Recorded By Document 08/05/20 11:21 MW [id number] 08/05/20 11:22 MW 08/05/20 11:21 Wound Care Nurse 3 [Wound Dressing] #1- L BALBUENA -Ulcer Cleansing Rinsed/ Irrigated with Saline -Foul Odor after Cleansing No -Negative Pressure Wound Therapy N/A -Primary Dressing Applied Fibracol Plus 4x4,NonAdherent Contact Layer -Primary Dressing Covered/Secured Dry Gauze & with Roll Gauze -Fibracol Plus 4x4 1 [Compression Applied] Left -Lotion applied to leg before No compression wrap -Size of Tubigrip Used Size F -Size F ($) 1 -Stockings No Teaching: Wound Center [Wound Center Education] (Items with an * have Printed Materials Available- Please identify what is given to patient under the Teaching materials given to patient and caregiver Section. Dressing Your Wound -Person Taught Patient -Teaching Method Discussion, Demonstration -Response to teaching Verbalize understanding WC - Visit Discharge [Visit Discharge Information] -Discharge Condition Stable -Ambulatory Status Ambulatory -Transportation Private Auto -Accompanied by -Medication Reconcilliation completed No & provided to patient/care provider -Clinical Summary of Care Provided Yes Musculoskeletal: No Tenderness to Palpation of Joints or Extremities Lymphatic: No Cervical, Supraclavicular, or Inguinal Adenopathy Neurological: Cranial nerves II-XII grossly intact, Neuro grossly intact Psych/Mental Status: Normal Affect, Appropriate Debridement Note Post-Debridement Measurements/Treatment WC - Nurse 2 - General Ulcer CM Notes Start: 07/29/20 09:33 Freq: Status: Active Protocol: Activity Type Activity Date Activity User E-Sign Co-Sign Detail Recorded Client Recorded Date Recorded By Document 07/29/20 10:04 MW [id number] 07/29/20 10:15 MW Document 08/05/20 11:07 MW [id number] 08/05/20 11:11 MW 07/29/20 08/05/20 10:04 11:07 Wound Center Nurse 2 #1- L BALBUENA -Time 10:04 11:08 -Correct Patient Yes Yes -Correct Side, Site, Position Yes Yes -Correct Procedure Yes Yes -Procedure Performed Yes Yes -Type of Procedure Debridement Debridement -Clinical Debridement Subcutaneous Subcutaneous -Tissue Removed Subcutaneous Subcutaneous -Post Debridement (cm) - Length 4.0 4.2 -Post Debridement (cm) - Width 0.5 0.5 -Post Debridement (cm) - Depth 0.1 0.1 -Total Square (Post) (cm) 2.00 2.10 -Area of Debridement (cm) - Length 4.0 4.2 -Area of Debridement (cm) - Width 0.5 0.5 -Total Square (Area) (cm) 2.00 2.10 -Tunneling No No -Undermining/Tunneling No No -Circular Undermining No No -Wound/Ulcer Outcome Not Healed Not Healed -Ulcer Cleansing Rinsed/ Rinsed/ Irrigated with Irrigated with Saline Saline -Foul Odor after Cleansing No No -Bioengineered Tissue No No -Bleeding Controlled with Pressure Pressure -Offloading No No -Treatment Response Procedure Tolerated Well -Debridement - Subq, 1st 20sq cm Yes Yes Pain Scale: 0-10 Numeric Is Patient Pain Free? Yes Yes WC - Nurse 3 - General Ulcer D/C NN Start: 07/29/20 09:33 Freq: Status: Active Protocol: Activity Type Activity Date Activity User E-Sign Co-Sign Detail Recorded Client Recorded Date Recorded By Document 07/29/20 10:28 [facility] [id number] 07/29/20 10:29 BM Document 08/05/20 11:21 MW [id number] 08/05/20 11:22 MW 07/29/20 08/05/20 10:28 11:21 Wound Care Nurse 3 #1- L BALBUENA -Ulcer Cleansing Rinsed/ Rinsed/ Irrigated with Irrigated with Saline Saline -Foul Odor after Cleansing No No -Negative Pressure Wound Therapy N/A -Primary Dressing Applied Fibracol Plus Fibracol Plus 4x4,NonAdherent 4x4,NonAdherent Contact Layer Contact Layer -Primary Dressing Covered/Secured with Dry Gauze & Dry Gauze & Roll Gauze, Roll Gauze Secured with Tape -Fibracol Plus 4x4 1 1 Left -Lotion applied to leg before No compression wrap -Tubular Bandage Double Layer -Size of Tubigrip Used Size F Size F -Size F ($) 1 1 -Stockings No Treatment Response Procedure Tolerated Well Pain Scale: 0-10 Numeric Is Patient Pain Free? Yes Teaching: Wound Center Dressing Your Wound -Person Taught Patient -Teaching Method Discussion, Demonstration -Response to teaching Verbalize understanding WC - Visit Discharge Discharge Condition Stable Stable Ambulatory Status Ambulatory Ambulatory Transportation Private Auto Private Auto Accompanied by Medication Reconcilliation completed & No provided to patient/care provider Clinical Summary of Care Provided Yes Wound debrided: Left balbuena laceration flap Type of Debridement: Excisional debridement Anesthesia Used: 5% Lidocaine Gel Depth: Down to and including healthy tissue Percentage of wound debrided: 100 Instrument Used: 7mm curette Tissue Removed: Fibrin and some devitalized tissue Severity: Limited To Skin Breakdown Amount of bleeding with debridement: Mild Bleeding Controlled with: Compression and gauze Patient tolerated procedure well Assessment/Plan Active Problems (Last Reviewed 07/25/19 @ 11:34 by Amina Tipton) Dehiscence of surgical wound (Acute) Nonhealing nonsurgical wound limited to breakdown of skin (Acute) Stage III chronic kidney disease (Chronic) Congestive heart failure (Chronic) Assessment: Dehisced surgical laceration to left lower balbuena. Edema swelling infection left lower leg. History of CHF Plan: Wash leg with antibacterial soap. Apply Fibracol to open areas. Cover with Adaptic gauze Rajni. Double layer Tubigrip. Follow-up in 1 week. Continue ciprofloxacin 500 mg 1 p.o. twice daily
[2020-08-12 09:22] VITALS: BP 132/81; PULSE 72; TEMP 35.9; BMI 24.9
--- NOTE | 2020-08-12 11:56 | PCM.WC.PN ---
(1) Dehiscence of surgical wound Status: Acute Qualifiers: Encounter type: subsequent encounter Qualified Code(s): T81.31XD - Disruption of external operation (surgical) wound, not elsewhere classified, subsequent encounter Code(s): T81.31XA - Disruption of external operation (surgical) wound, not elsewhere classified, initial encounter (2) Congestive heart failure Status: Chronic Code(s): I50.9 - Heart failure, unspecified (3) Stage III chronic kidney disease Status: Chronic Code(s): N18.3 - Chronic kidney disease, stage 3 (moderate) (4) Nonhealing nonsurgical wound limited to breakdown of skin Status: Acute Code(s): T14.8XXA - Other injury of unspecified body region, initial encounter Type of Wound Date of Service: 08/12/20 Chief Complaint: Follow-up left anterior balbuena dehisced laceration History of Wound: He 79-year-old white female that was cutting wood her for the winter. When a piece of wood fell off the pile and hit her left balbuena. Patient was taken to the emergency room on 07/24/2000 where it was Steri-Stripped and secured with sutures and bandaged. She has been wearing a thin stockinette over top to hold in place. Then she found her leg was starting to increase in swelling and redness in the ankle area below the laceration warm to touch and increased pain. Patient was referred to us Progress of Wound: The flap laceration is taking hold and healing. She was positive on her cultures and was started on ciprofloxacin she will finish that. She seems to be healing well with the Fibracol and is tolerating the compression well. - Physical Exam Vital Signs Temp Pulse Resp BP 96.6 F L 72 16 132/81 H 08/12/20 09:22 08/12/20 09:22 08/05/20 10:45 08/12/20 09:22 General: Oriented x3, Cooperative, Well developed HEENT: Atraumatic, PERRLA Oral: Moist Mucosa Neck: Supple, No JVD Lungs: Clear to auscultation, Normal air movement Cardiovascular: Regular rate, Regular Rhythm Abdomen: Bowel Sounds Present, Soft, Non Tender, No Hepato-splenomegaly Extremities: No clubbing, No edema Skin: Ulcer/ Wound - Left balbuena Wound Measurements and Assessment WC - Nurse 1 - General Ulcer Measurement Start: 07/29/20 09:33 Freq: Status: Active Protocol: Activity Type Activity Date Activity User E-Sign Co-Sign Detail Recorded Client Recorded Date Recorded By Document 08/12/20 09:22 KR [id number] 08/12/20 09:33 KR 08/12/20 09:22 Wound Center Nurse 1 [Ulcer Assessment] #1- L BALBUENA -Current Size (cm) - Length 2.9 -Current Size (cm) - Width 5 -Current Size (cm) - Depth 0.1 -Total Square Cm 14.5 -Exudate Amt Small -Exudate Type Serosanguineous -Wound Margin Distinct, Outline Attached -Granulation Amt Small (1-33%) -Granulation Quality Red -Necrosis Amt Medium (34-66%) -Necrotic Tissue Type Adherent Slough -Texture (Ade-wound Skin Appearance) Assessed, Scarring -Moisture (Ade-wound Skin Appearance No Abnormality, ) Assessed -Color (Ade-wound Skin Appearance) No Abnormality -Temperature (Ade-wound Skin No Abnormality Appearance) (Pt Warm) -Tenderness on Palpation (Ade-wound No Skin Appearance) -Ulcer Cleansing Rinsed/ Irrigated with Saline -Foul Odor after Cleansing No -Anesthetic Used 4% Lidocaine Solution WC - Nurse 2 - General Ulcer CM Notes Start: 07/29/20 09:33 Freq: Status: Active Protocol: Activity Type Activity Date Activity User E-Sign Co-Sign Detail Recorded Client Recorded Date Recorded By Document 08/12/20 09:43 MW [id number] 08/12/20 09:44 MW 08/12/20 09:43 Wound Center Nurse 2 [Procedure/Treatment] -Time 09:43 -Correct Patient Yes -Correct Side, Site, Position Yes -Correct Procedure Yes -Procedure Performed Yes -Type of Procedure Debridement -Clinical Debridement Subcutaneous -Tissue Removed Subcutaneous -Post Debridement (cm) - Length 2.5 -Post Debridement (cm) - Width 0.3 -Post Debridement (cm) - Depth 0.1 -Total Square (Post) (cm) 0.75 -Area of Debridement (cm) - Length 2.5 -Area of Debridement (cm) - Width 0.3 -Total Square (Area) (cm) 0.75 -Tunneling No -Undermining/Tunneling No -Circular Undermining No -Wound/Ulcer Outcome Not Healed -Ulcer Cleansing Rinsed/ Irrigated with Saline -Foul Odor after Cleansing No -Bioengineered Tissue No -Bleeding Controlled with Pressure -Offloading No -Debridement - Subq, 1st 20sq cm Yes [See Physician Procedure note for Specifics] Pain Scale: 0-10 Numeric [Pain] -Is Patient Pain Free? Yes - Nurse 3 - General Ulcer D/C NN Start: 07/29/20 09:33 Freq: Status: Active Protocol: Activity Type Activity Date Activity User E-Sign Co-Sign Detail Recorded Client Recorded Date Recorded By Document 08/12/20 09:52 KR [id number] 08/12/20 09:53 KR 08/12/20 09:52 Wound Care Nurse 3 [Wound Dressing] #1- L BALB[place] -Ulcer Cleansing Rinsed/ Irrigated with Saline -Foul Odor after Cleansing No -Negative Pressure Wound Therapy N/A -Primary Dressing Applied NonAdherent Contact Layer, Promogran -Primary Dressing Covered/Secured Dry Gauze & with Roll Gauze -Promogran 1 Pain Scale: 0-10 Numeric [Pain] -Is Patient Pain Free? Yes - Visit Discharge [Visit Discharge Information] -Discharge Condition Stable -Ambulatory Status Ambulatory -Transportation Private Auto Musculoskeletal: No Tenderness to Palpation of Joints or Extremities Lymphatic: No Cervical, Supraclavicular, or Inguinal Adenopathy Neurological: Cranial nerves II-XII grossly intact, Neuro grossly intact Psych/Mental Status: Normal Affect, Appropriate Debridement Note Post-Debridement Measurements/Treatment - Nurse 2 - General Ulcer CM Notes Start: 07/29/20 09:33 Freq: Status: Active Protocol: Activity Type Activity Date Activity User E-Sign Co-Sign Detail Recorded Client Recorded Date Recorded By Document 07/29/20 10:04 MW [id number] 07/29/20 10:15 MW Document 08/05/20 11:07 MW [id number] 08/05/20 11:11 MW Document 08/12/20 09:43 MW [id number] 08/12/20 09:44 MW 07/29/20 08/05/20 08/12/20 10:04 11:07 09:43 Wound Center Nurse 2 #1- L BALBUENA -Time 10:04 11:08 09:43 -Correct Patient Yes Yes Yes -Correct Side, Site, Position Yes Yes Yes -Correct Procedure Yes Yes Yes -Procedure Performed Yes Yes Yes -Type of Procedure Debridement Debridement Debridement -Clinical Debridement Subcutaneous Subcutaneous Subcutaneous -Tissue Removed Subcutaneous Subcutaneous Subcutaneous -Post Debridement (cm) - Length 4.0 4.2 2.5 -Post Debridement (cm) - Width 0.5 0.5 0.3 -Post Debridement (cm) - Depth 0.1 0.1 0.1 -Total Square (Post) (cm) 2.00 2.10 0.75 -Area of Debridement (cm) - Length 4.0 4.2 2.5 -Area of Debridement (cm) - Width 0.5 0.5 0.3 -Total Square (Area) (cm) 2.00 2.10 0.75 -Tunneling No No No -Undermining/Tunneling No No No -Circular Undermining No No No -Wound/Ulcer Outcome Not Healed Not Healed Not Healed -Ulcer Cleansing Rinsed/ Rinsed/ Rinsed/ Irrigated with Irrigated with Irrigated with Saline Saline Saline -Foul Odor after Cleansing No No No -Bioengineered Tissue No No No -Bleeding Controlled with Pressure Pressure Pressure -Offloading No No No -Treatment Response Procedure Tolerated Well -Debridement - Subq, 1st 20sq cm Yes Yes Yes Pain Scale: 0-10 Numeric Is Patient Pain Free? Yes Yes Yes WC - Nurse 3 - General Ulcer D/C NN Start: 07/29/20 09:33 Freq: Status: Active Protocol: Activity Type Activity Date Activity User E-Sign Co-Sign Detail Recorded Client Recorded Date Recorded By Document 07/29/20 10:28 [facility] [id number] 07/29/20 10:29 [facility] Document 08/05/20 11:21 MW [id number] 08/05/20 11:22 MW Document 08/12/20 09:52 KR [id number] 08/12/20 09:53 KR 07/29/20 08/05/20 08/12/20 10:28 11:21 09:52 Wound Care Nurse 3 #1- L BALBUENA -Ulcer Cleansing Rinsed/ Rinsed/ Rinsed/ Irrigated with Irrigated with Irrigated with Saline Saline Saline -Foul Odor after Cleansing No No No -Negative Pressure Wound Therapy N/A N/A -Primary Dressing Applied Fibracol Plus Fibracol Plus NonAdherent 4x4,NonAdherent 4x4,NonAdherent Contact Layer, Contact Layer Contact Layer Promogran -Primary Dressing Covered/Secured with Dry Gauze & Dry Gauze & Dry Gauze & Roll Gauze, Roll Gauze Roll Gauze Secured with Tape -Fibracol Plus 4x4 1 1 -Promogran 1 Left -Lotion applied to leg before No compression wrap -Tubular Bandage Double Layer -Size of Tubigrip Used Size F Size F -Size F ($) 1 1 -Stockings No Treatment Response Procedure Tolerated Well Pain Scale: 0-10 Numeric Is Patient Pain Free? Yes Yes Teaching: Wound Center Dressing Your Wound -Person Taught Patient -Teaching Method Discussion, Demonstration -Response to teaching Verbalize understanding WC - Visit Discharge Discharge Condition Stable Stable Stable Ambulatory Status Ambulatory Ambulatory Ambulatory Transportation Private Auto Private Auto Private Auto Accompanied by Medication Reconcilliation completed & No provided to patient/care provider Clinical Summary of Care Provided Yes Wound debrided: Left balbuena Type of Debridement: Excisional debridement Anesthesia Used: 5% Lidocaine Gel Depth: Down to and including healthy tissue Percentage of wound debrided: 100 Instrument Used: 5mm curette Tissue Removed: Fibrin and devitalized tissue Assessment/Plan Active Problems (Last Reviewed 07/25/19 @ 11:34 by Amina Tipton) Dehiscence of surgical wound (Acute) Nonhealing nonsurgical wound limited to breakdown of skin (Acute) Stage III chronic kidney disease (Chronic) Congestive heart failure (Chronic) Assessment: Dehisced surgical laceration to left lower balbuena. Edema swelling infection left lower leg. History of CHF Plan: Wash leg with antibacterial soap. Apply Promogran to open area. Cover with Adaptic gauze Rajni. Double layer Tubigrip. Follow-up in 1 week. Continue ciprofloxacin 500 mg 1 p.o. twice daily
== END 2020-08-17 23:59 ==
LOC: WC 09:30
PROVIDERS: PCP Family Medicine; Referring Provider Emergency Medicine; Visit Provider Nurse Practitioner
DX: T81.31XA Disruption of external operation (surgical) wound, not elsewhere classified, initial encounter (principal); T14.8XXA Other injury of unspecified body region, initial encounter; M79.89 Other specified soft tissue disorders; R60.9 Edema, unspecified; I13.0 Hypertensive heart and chronic kidney disease with heart failure and stage 1 through stage 4 chronic kidney disease, or unspecified chronic kidney disease; N18.30 Chronic kidney disease, stage 3 unspecified; I50.9 Heart failure, unspecified; K21.9 Gastro-esophageal reflux disease without esophagitis; I25.10 Atherosclerotic heart disease of native coronary artery without angina pectoris; J45.909 Unspecified asthma, uncomplicated; Z79.51 Long term (current) use of inhaled steroids; Z79.82 Long term (current) use of aspirin; Z82.49 Family history of ischemic heart disease and other diseases of the circulatory system; Z88.0 Allergy status to penicillin; Z88.2 Allergy status to sulfonamides; Z88.6 Allergy status to analgesic agent; Z88.8 Allergy status to other drugs, medicaments and biological substances; Z90.49 Acquired absence of other specified parts of digestive tract; Z90.710 Acquired absence of both cervix and uterus
CPT/HCPCS: 11042; 87070; 87075; 87077; 87186; 87205; 99213; G0463

== ENCOUNTER 2020-09-16 10:15 | Outpatient (RCR) | payer MEDICARE, SELFPAY ==
[2020-08-18 00:41] VITALS: BP 132/81; PULSE 72; RESP 16; TEMP 35.9
[2020-08-19 09:40] VITALS: BP 135/58; PULSE 82; RESP 18; TEMP 35.6; BMI 24.9
--- NOTE | 2020-08-19 10:41 | PCM.WC.PN ---
(1) Dehiscence of surgical wound Status: Acute Qualifiers: Encounter type: subsequent encounter Code(s): T81.31XA - Disruption of external operation (surgical) wound, not elsewhere classified, initial encounter (2) CAD (coronary artery disease) Status: Chronic Qualifiers: Code(s): I25.10 - Atherosclerotic heart disease of [place] coronary artery without angina pectoris (3) Stage III chronic kidney disease Status: Chronic Code(s): N18.3 - Chronic kidney disease, stage 3 (moderate) Type of Wound Date of Service: 08/19/20 Chief Complaint: Follow-up left anterior balbuena dehisced laceration History of Wound: He 79-year-old white female that was cutting wood her for the winter. When a piece of wood fell off the pile and hit her left balbuena. Patient was taken to the emergency room on 07/24/2000 where it was Steri-Stripped and secured with sutures and bandaged. She has been wearing a thin stockinette over top to hold in place. Then she found her leg was starting to increase in swelling and redness in the ankle area below the laceration warm to touch and increased pain. Patient was referred to us Progress of Wound: The flap laceration is taking hold and healing. She was positive on her cultures and was started on ciprofloxacin she has finished that. We switched her to Promogran last week which healed the outer rim of the laceration well. We the 2 deep scabs that were over the center of the wound and will start Promogran there. Slight erythema around the wound no warmth no fever no chills patient has finished her antibiotics well. - Physical Exam Vital Signs Temp Pulse Resp BP 96.0 F L 82 18 135/58 H 08/19/20 09:40 08/19/20 09:40 08/19/20 09:40 08/19/20 09:40 General: Oriented x3, Cooperative, Well developed HEENT: Atraumatic, PERRLA Oral: Moist Mucosa Neck: Supple, No JVD Lungs: Clear to auscultation, Normal air movement Cardiovascular: Regular rate, Regular Rhythm Abdomen: Bowel Sounds Present, Soft, Non Tender, No Hepato-splenomegaly Extremities: No clubbing, No edema Skin: Ulcer/ Wound - Left balbuena wound from a accident with an ax with suturing in the emergency room that dehisced Wound Measurements and Assessment WC - Nurse 1 - General Ulcer Measurement Start: 08/19/20 09:40 Freq: Status: Active Protocol: Activity Type Activity Date Activity User E-Sign Co-Sign Detail Recorded Client Recorded Date Recorded By Document 08/19/20 09:40 MT [id number] 08/19/20 09:49 MT 08/19/20 09:40 Wound Center Nurse 1 [Ulcer Assessment] #1- L BALB[place] -Current Size (cm) - Length 0.1 -Current Size (cm) - Width 0.1 -Current Size (cm) - Depth 0.1 -Total Square Cm 0.01 -Exudate Amt None Present -Wound Margin Flat & Intact -Granulation Amt Small (1-33%) -Granulation Quality Pale,[place] -Necrosis Amt Large (67-100%) -Necrotic Tissue Type Eschar -Texture (Ade-wound Skin Appearance) Assessed, Localized Edema -Moisture (Ade-wound Skin Appearance Assessed ) -Color (Ade-wound Skin Appearance) Assessed, Hemosiderin Staining -Temperature (Ade-wound Skin No Abnormality Appearance) (Pt Warm) -Tenderness on Palpation (Ade-wound No Skin Appearance) -Ulcer Cleansing Rinsed/ Irrigated with Saline -Foul Odor after Cleansing No -Anesthetic Used 4% Lidocaine Solution [Edema Assessment] -Left Calf (cm) 33 -Left Ankle (cm) 22 - Nurse 2 - General Ulcer CM Notes Start: 08/19/20 09:40 Freq: Status: Active Protocol: Activity Type Activity Date Activity User E-Sign Co-Sign Detail Recorded Client Recorded Date Recorded By Document 08/19/20 09:56 MW [id number] 08/19/20 10:00 MW 08/19/20 09:56 Wound Center Nurse 2 [Procedure/Treatment] #1- L BALBUENA -Time 09:56 -Correct Patient Yes -Correct Side, Site, Position Yes -Correct Procedure Yes -Procedure Performed Yes -Type of Procedure Debridement -Clinical Debridement Subcutaneous -Tissue Removed Subcutaneous -Post Debridement (cm) - Length 2.8 -Post Debridement (cm) - Width 2.5 -Post Debridement (cm) - Depth 0.3 -Total Square (Post) (cm) 7.00 -Area of Debridement (cm) - Length 2.8 -Area of Debridement (cm) - Width 2.5 -Total Square (Area) (cm) 7.00 -Tunneling No -Undermining/Tunneling No -Circular Undermining No -Wound/Ulcer Outcome Not Healed -Ulcer Cleansing Rinsed/ Irrigated with Saline -Foul Odor after Cleansing No -Bioengineered Tissue No -Bleeding Controlled with Pressure -Offloading No -Treatment Response Procedure Tolerated Well -Debridement - Subq, 1st 20sq cm Yes [See Physician Procedure note for Specifics] Pain Scale: 0-10 Numeric [Pain] -Is Patient Pain Free? Yes WC - Nurse 3 - General Ulcer D/C NN Start: 08/19/20 09:40 Freq: Status: Active Protocol: Activity Type Activity Date Activity User E-Sign Co-Sign Detail Recorded Client Recorded Date Recorded By Document 08/19/20 10:07 MW [id number] 08/19/20 10:08 MW 08/19/20 10:07 Wound Care Nurse 3 [Wound Dressing] #1- L BALBUE[place] -Ulcer Cleansing Rinsed/ Irrigated with Saline -Foul Odor after Cleansing No -Negative Pressure Wound Therapy N/A -Primary Dressing Applied Promogran -Primary Dressing Covered/Secured Dry Gauze & with Roll Gauze, Secured with Tape -Promogran 2 [Compression Applied] Left -Lotion applied to leg before No compression wrap -Size of Tubigrip Used Size F [Post Procedure Tolerated] -Treatment Response Procedure Tolerated Well Pain Scale: 0-10 Numeric [Pain] -Is Patient Pain Free? Yes Teaching: Wound Center [Wound Center Education] (Items with an * have Printed Materials Available- Please identify what is given to patient under the Teaching materials given to patient and caregiver Section. Dressing Your Wound -Person Taught Patient -Teaching Method Discussion, Demonstration -Response to teaching Verbalize understanding - Visit Discharge [Visit Discharge Information] -Discharge Condition Stable -Ambulatory Status Ambulatory -Transportation Private Auto -Accompanied by SELF -Medication Reconcilliation completed No & provided to patient/care provider -Clinical Summary of Care Provided Yes Musculoskeletal: No Tenderness to Palpation of Joints or Extremities Lymphatic: No Cervical, Supraclavicular, or Inguinal Adenopathy Neurological: Cranial nerves II-XII grossly intact, Neuro grossly intact Psych/Mental Status: Normal Affect, Appropriate Debridement Note Post-Debridement Measurements/Treatment ROSS - Nurse 2 - General Ulcer CM Notes Start: 08/19/20 09:40 Freq: Status: Active Protocol: Activity Type Activity Date Activity User E-Sign Co-Sign Detail Recorded Client Recorded Date Recorded By Document 08/19/20 09:56 MW [id number] 08/19/20 10:00 MW 08/19/20 09:56 Wound Center Nurse 2 #1- L BALBUENA -Time 09:56 -Correct Patient Yes -Correct Side, Site, Position Yes -Correct Procedure Yes -Procedure Performed Yes -Type of Procedure Debridement -Clinical Debridement Subcutaneous -Tissue Removed Subcutaneous -Post Debridement (cm) - Length 2.8 -Post Debridement (cm) - Width 2.5 -Post Debridement (cm) - Depth 0.3 -Total Square (Post) (cm) 7.00 -Area of Debridement (cm) - Length 2.8 -Area of Debridement (cm) - Width 2.5 -Total Square (Area) (cm) 7.00 -Tunneling No -Undermining/Tunneling No -Circular Undermining No -Wound/Ulcer Outcome Not Healed -Ulcer Cleansing Rinsed/ Irrigated with Saline -Foul Odor after Cleansing No -Bioengineered Tissue No -Bleeding Controlled with Pressure -Offloading No -Treatment Response Procedure Tolerated Well -Debridement - Subq, 1st 20sq cm Yes Pain Scale: 0-10 Numeric Is Patient Pain Free? Yes - Nurse 3 - General Ulcer D/C NN Start: 08/19/20 09:40 Freq: Status: Active Protocol: Activity Type Activity Date Activity User E-Sign Co-Sign Detail Recorded Client Recorded Date Recorded By Document 08/19/20 10:07 MW [id number] 08/19/20 10:08 MW 08/19/20 10:07 Wound Care Nurse 3 #1- L BALBUENA -Ulcer Cleansing Rinsed/ Irrigated with Saline -Foul Odor after Cleansing No -Negative Pressure Wound Therapy N/A -Primary Dressing Applied Promogran -Primary Dressing Covered/Secured with Dry Gauze & Roll Gauze, Secured with Tape -Promogran 2 Left -Lotion applied to leg before No compression wrap -Size of Tubigrip Used Size F Treatment Response Procedure Tolerated Well Pain Scale: 0-10 Numeric Is Patient Pain Free? Yes Teaching: Wound Center Dressing Your Wound -Person Taught Patient -Teaching Method Discussion, Demonstration -Response to teaching Verbalize understanding WC - Visit Discharge Discharge Condition Stable Ambulatory Status Ambulatory Transportation Private Auto Accompanied by SELF Medication Reconcilliation completed & No provided to patient/care provider Clinical Summary of Care Provided Yes Wound debrided: Left balbuena wound Type of Debridement: Excisional debridement Anesthesia Used: 5% Lidocaine Gel Depth: Down to and including healthy tissue, in the subcutaneous layer Instrument Used: 7mm curette Tissue Removed: Devitalized tissue and fibrin Severity: Fat Layer Exposed Amount of bleeding with debridement: Mild Bleeding Controlled with: Compression and gauze Patient tolerated procedure well Assessment/Plan Assessment: Dehisced surgical laceration to left lower balbuena. Edema swelling infection left lower leg. History of CHF Plan: Wash leg with antibacterial soap. Apply Promogran to open area. Cover with Adaptic gauze Rajni. Double layer Tubigrip. Follow-up in 1 week. Continue ciprofloxacin 500 mg 1 p.o. twice daily
[2020-08-26 10:39] VITALS: TEMP 35.8; BMI 24.9
--- NOTE | 2020-08-26 12:40 | PN.PCM_ITS ---
(1) Dehiscence of surgical wound Status: Acute Qualifiers: Encounter type: subsequent encounter Code(s): T81.31XA - Disruption of external operation (surgical) wound, not elsewhere classified, initial encounter (2) CAD (coronary artery disease) Status: Chronic Qualifiers: Code(s): I25.10 - Atherosclerotic heart disease of [place] coronary artery without angina pectoris (3) Stage III chronic kidney disease Status: Chronic Code(s): N18.3 - Chronic kidney disease, stage 3 (moderate) (4) Infected wound Status: Acute Code(s): T14.8XXA - Other injury of unspecified body region, initial encounter; L08.9 - Local infection of the skin and subcutaneous tissue, unspecified Type of Wound Date of Service: 08/26/20 Chief Complaint: Follow-up left anterior balbuena dehisced laceration History of Wound: He 79-year-old white female that was cutting wood her for the winter. When a piece of wood fell off the pile and hit her left balbuena. Patient was taken to the emergency room on 07/24/2000 where it was Steri-Stripped and secured with sutures and bandaged. She has been wearing a thin stockinette over top to hold in place. Then she found her leg was starting to increase in swelling and redness in the ankle area below the laceration warm to touch and increased pain. Patient was referred to us Progress of Wound: The flap laceration is taking hold and healing. She was positive on her cultures and was started on ciprofloxacin she has finished that. We switched her to Promogran last week which healed the outer rim of the laceration well. We the 3 deep open punctures that were over the center of the wound and will start Promogran there. Slight erythema around the wound no warmth no fever no chills patient has finished her antibiotics well. We will reculture her areas because she is complaining of increased pain and some increased redness the third puncture wound is new. We will continue Promogran in the puncture-like wounds - Physical Exam Vital Signs Temp Pulse Resp BP 96.5 F L 82 18 135/58 H 08/26/20 10:39 08/19/20 09:40 08/19/20 09:40 08/19/20 09:40 General: Oriented x3, Cooperative, Well developed HEENT: Atraumatic, PERRLA Oral: Moist Mucosa Neck: Supple, No JVD Lungs: Clear to auscultation, Normal air movement Cardiovascular: Regular rate, Regular Rhythm Abdomen: Bowel Sounds Present, Soft, Non Tender, No Hepato-splenomegaly Extremities: No clubbing, No edema Skin: Ulcer/ Wound - Left balbuena dehisced surgical wound from ER that now has developed into 3 puncture wounds Wound Measurements and Assessment WC - Nurse 1 - General Ulcer Measurement Start: 08/19/20 09:40 Freq: Status: Active Protocol: Activity Type Activity Date Activity User E-Sign Co-Sign Detail Recorded Client Recorded Date Recorded By Document 08/26/20 10:39 KR [id number] 08/26/20 10:51 KR 08/26/20 10:39 Wound Center Nurse 1 [Ulcer Assessment] #1- L BALBUENA -Current Size (cm) - Length 3 -Current Size (cm) - Width 3.4 -Current Size (cm) - Depth 0.1 -Total Square Cm 10.2 -Classification - Thickness Partial Thickness -Exudate Amt Small -Exudate Type Yellow/Green -Wound Margin Distinct, Outline Attached -Granulation Amt None Present (0 %) -Necrosis Amt Large (67-100%) -Necrotic Tissue Type Adherent Slough -Texture (Ade-wound Skin Appearance) No Abnormality, Assessed -Moisture (Ade-wound Skin Appearance No Abnormality, ) Assessed -Color (Ade-wound Skin Appearance) No Abnormality, Assessed -Temperature (Ade-wound Skin No Abnormality Appearance) (Pt Warm) -Tenderness on Palpation (Ade-wound No Skin Appearance) -Ulcer Cleansing Rinsed/ Irrigated with Saline -Foul Odor after Cleansing No -Anesthetic Used 4% Lidocaine Solution [Edema Assessment] -Right Calf (cm) 38 -Right Ankle (cm) 25 WC - Nurse 2 - General Ulcer CM Notes Start: 08/19/20 09:40 Freq: Status: Active Protocol: Activity Type Activity Date Activity User E-Sign Co-Sign Detail Recorded Client Recorded Date Recorded By Document 08/26/20 11:23 MW [id number] 08/26/20 11:24 MW 08/26/20 11:23 Wound Center Nurse 2 [Procedure/Treatment] #1- L BALBUENA -Time 11:24 -Correct Patient Yes -Correct Side, Site, Position Yes -Correct Procedure Yes -Procedure Performed Yes -Type of Procedure Debridement -Clinical Debridement Subcutaneous -Tissue Removed Subcutaneous -Post Debridement (cm) - Length 2.0 -Post Debridement (cm) - Width 2.5 -Post Debridement (cm) - Depth 0.3 -Total Square (Post) (cm) 5.00 -Area of Debridement (cm) - Length 2.0 -Area of Debridement (cm) - Width 2.5 -Total Square (Area) (cm) 5.00 -Tunneling No -Undermining/Tunneling No -Circular Undermining No -Wound/Ulcer Outcome Not Healed -Ulcer Cleansing Rinsed/ Irrigated with Saline -Foul Odor after Cleansing No -Bioengineered Tissue No -Bleeding Controlled with Pressure -Offloading No -Treatment Response Procedure Tolerated Well -Debridement - Subq, 1st 20sq cm Yes [See Physician Procedure note for Specifics] Pain Scale: 0-10 Numeric [Pain] -Is Patient Pain Free? Yes - Nurse 3 - General Ulcer D/C NN Start: 08/19/20 09:40 Freq: Status: Active Protocol: Activity Type Activity Date Activity User E-Sign Co-Sign Detail Recorded Client Recorded Date Recorded By Document 08/26/20 11:31 AR [id number] 08/26/20 11:33 AR 08/26/20 11:31 Wound Care Nurse 3 [Wound Dressing] #1- L BALB[place] -Ulcer Cleansing Rinsed/ Irrigated with Saline -Foul Odor after Cleansing No -Primary Dressing Applied NonAdherent Contact Layer, Promogran -Primary Dressing Covered/Secured Dry Gauze & with Roll Gauze, Secured with Tape -Promogran 2 [Compression Applied] Left -Tubular Bandage Single Layer -Size of Tubigrip Used Size F -Size F ($) 1 [Post Procedure Tolerated] -Treatment Response Procedure Tolerated Well Pain Scale: 0-10 Numeric [Pain] -Is Patient Pain Free? Yes - Visit Discharge [Visit Discharge Information] -Discharge Condition Stable -Ambulatory Status Ambulatory -Transportation Private Auto Musculoskeletal: No Tenderness to Palpation of Joints or Extremities Lymphatic: No Cervical, Supraclavicular, or Inguinal Adenopathy Neurological: Cranial nerves II-XII grossly intact, Neuro grossly intact Psych/Mental Status: Normal Affect, Appropriate Debridement Note Post-Debridement Measurements/Treatment WC - Nurse 2 - General Ulcer CM Notes Start: 08/19/20 09:40 Freq: Status: Active Protocol: Activity Type Activity Date Activity User E-Sign Co-Sign Detail Recorded Client Recorded Date Recorded By Document 08/19/20 09:56 MW [id number] 08/19/20 10:00 MW Document 08/26/20 11:23 MW [id number] 08/26/20 11:24 MW 08/19/20 08/26/20 09:56 11:23 Wound Center Nurse 2 #1- L BALBUENA -Time 09:56 11:24 -Correct Patient Yes Yes -Correct Side, Site, Position Yes Yes -Correct Procedure Yes Yes -Procedure Performed Yes Yes -Type of Procedure Debridement Debridement -Clinical Debridement Subcutaneous Subcutaneous -Tissue Removed Subcutaneous Subcutaneous -Post Debridement (cm) - Length 2.8 2.0 -Post Debridement (cm) - Width 2.5 2.5 -Post Debridement (cm) - Depth 0.3 0.3 -Total Square (Post) (cm) 7.00 5.00 -Area of Debridement (cm) - Length 2.8 2.0 -Area of Debridement (cm) - Width 2.5 2.5 -Total Square (Area) (cm) 7.00 5.00 -Tunneling No No -Undermining/Tunneling No No -Circular Undermining No No -Wound/Ulcer Outcome Not Healed Not Healed -Ulcer Cleansing Rinsed/ Rinsed/ Irrigated with Irrigated with Saline Saline -Foul Odor after Cleansing No No -Bioengineered Tissue No No -Bleeding Controlled with Pressure Pressure -Offloading No No -Treatment Response Procedure Procedure Tolerated Well Tolerated Well -Debridement - Subq, 1st 20sq cm Yes Yes Pain Scale: 0-10 Numeric Is Patient Pain Free? Yes Yes WC - Nurse 3 - General Ulcer D/C NN Start: 08/19/20 09:40 Freq: Status: Active Protocol: Activity Type Activity Date Activity User E-Sign Co-Sign Detail Recorded Client Recorded Date Recorded By Document 08/19/20 10:07 MW [id number] 08/19/20 10:08 MW Document 08/26/20 11:31 MT [id number] 08/26/20 11:33 AR 08/19/20 08/26/20 10:07 11:31 Wound Care Nurse 3 #1- L [place] -Ulcer Cleansing Rinsed/ Rinsed/ Irrigated with Irrigated with Saline Saline -Foul Odor after Cleansing No No -Negative Pressure Wound Therapy N/A -Primary Dressing Applied Promogran NonAdherent Contact Layer, Promogran -Primary Dressing Covered/Secured with Dry Gauze & Dry Gauze & Roll Gauze, Roll Gauze, Secured with Secured with Tape Tape -Promogran 2 2 Left -Lotion applied to leg before No compression wrap -Tubular Bandage Single Layer -Size of Tubigrip Used Size F Size F -Size F ($) 1 Treatment Response Procedure Procedure Tolerated Well Tolerated Well Pain Scale: 0-10 Numeric Is Patient Pain Free? Yes Yes Teaching: Wound Center Dressing Your Wound -Person Taught Patient -Teaching Method Discussion, Demonstration -Response to teaching Verbalize understanding WC - Visit Discharge Discharge Condition Stable Stable Ambulatory Status Ambulatory Ambulatory Transportation Private Auto Private Auto Accompanied by SELF Medication Reconcilliation completed & No provided to patient/care provider Clinical Summary of Care Provided Yes Wound debrided: Left balbuena Type of Debridement: Excisional debridement Anesthesia Used: 5% Lidocaine Gel Depth: Down to and including healthy tissue, in the subcutaneous layer Percentage of wound debrided: 100 Instrument Used: 3mm curette Tissue Removed: Slough and fibrin Severity: Limited To Skin Breakdown Amount of bleeding with debridement: Mild Bleeding Controlled with: Compression and gauze Assessment/Plan Aerobic and anaerobic cultures obtained Active Problems (Last Reviewed 07/25/19 @ 11:34 by Amina Tipton) Dehiscence of surgical wound (Acute) Stage III chronic kidney disease (Chronic) CAD (coronary artery disease) (Chronic) Assessment: Dehisced surgical laceration to left lower balbuena. Edema swelling infection left lower leg. History of CHF Plan: Wash leg with antibacterial soap. Apply Promogran to open area only. Cover with Adaptic gauze Rajni. Double layer Tubigrip. Follow-up in 1 week. Continue ciprofloxacin 500 mg 1 p.o. twice daily
[2020-09-02 10:48] VITALS: BP 130/56; PULSE 75; TEMP 36.3; BMI 24.9
--- NOTE | 2020-09-02 11:33 | PCM.WC.PN ---
(1) Dehiscence of surgical wound Status: Acute Qualifiers: Encounter type: subsequent encounter Code(s): T81.31XA - Disruption of external operation (surgical) wound, not elsewhere classified, initial encounter (2) CAD (coronary artery disease) Status: Chronic Qualifiers: Code(s): I25.10 - Atherosclerotic heart disease of [place] coronary artery without angina pectoris (3) Stage III chronic kidney disease Status: Chronic Code(s): N18.3 - Chronic kidney disease, stage 3 (moderate) (4) Infected wound Status: Acute Code(s): T14.8XXA - Other injury of unspecified body region, initial encounter; L08.9 - Local infection of the skin and subcutaneous tissue, unspecified Type of Wound Date of Service: 09/02/20 Chief Complaint: Follow-up left anterior balbuena dehisced laceration History of Wound: He 79-year-old white female that was cutting wood her for the winter. When a piece of wood fell off the pile and hit her left balbuena. Patient was taken to the emergency room on 07/24/2000 where it was Steri-Stripped and secured with sutures and bandaged. She has been wearing a thin stockinette over top to hold in place. Then she found her leg was starting to increase in swelling and redness in the ankle area below the laceration warm to touch and increased pain. Patient was referred to us Progress of Wound: The flap laceration is taking hold and healing. She started complaining again of pain in her lower leg and complain of increasing redness recultures show several aerobic and anaerobic bugs started her on linezolid and metronidazole which she just started on Monday. We switched her to Promogran last week which healed the outer rim of the laceration well. We will continue with Promogran and follow-up in 1 week - Physical Exam Vital Signs Temp Pulse Resp BP 97.3 F L 75 18 130/56 H 09/02/20 10:48 09/02/20 10:48 08/19/20 09:40 09/02/20 10:48 General: Oriented x3, Cooperative, Well developed HEENT: Atraumatic, PERRLA Oral: Moist Mucosa Neck: Supple, No JVD Lungs: Clear to auscultation, Normal air movement Cardiovascular: Regular rate, Regular Rhythm Abdomen: Bowel Sounds Present, Soft, Non Tender, No Hepato-splenomegaly Extremities: No clubbing, No edema, - - Left balbuena dehisced laceration from sutures Wound Measurements and Assessment WC - Nurse 1 - General Ulcer Measurement Start: 08/19/20 09:40 Freq: Status: Active Protocol: Activity Type Activity Date Activity User E-Sign Co-Sign Detail Recorded Client Recorded Date Recorded By Document 09/02/20 10:48 AL [id number] 09/02/20 10:58 AL 09/02/20 10:48 Wound Center Nurse 1 [Ulcer Assessment] #1- L [place] -Current Size (cm) - Length 0.5 -Current Size (cm) - Width 0.4 -Current Size (cm) - Depth 0.3 -Total Square Cm 0.20 -Epithelialization Medium 34-66% -Exudate Amt Small -Exudate Type Serosanguineous -Wound Margin Thickened & Rolled Under -Granulation Amt Medium (34-66%) -Granulation Quality Pale,[place] -Slough/Fibrin No -Necrosis Amt Medium (34-66%) -Necrotic Tissue Type Adherent Slough -Texture (Ade-wound Skin Appearance) Assessed -Moisture (Ade-wound Skin Appearance Assessed ) -Color (Ade-wound Skin Appearance) Assessed, Hemosiderin Staining -Temperature (Ade-wound Skin No Abnormality Appearance) (Pt Warm) -Tenderness on Palpation (Ade-wound No Skin Appearance) -Ulcer Cleansing Rinsed/ Irrigated with Saline -Foul Odor after Cleansing No -Anesthetic Used 4% Lidocaine Solution [Edema Assessment] -Left Calf (cm) 37 -Left Ankle (cm) 22 - Nurse 2 - General Ulcer CM Notes Start: 08/19/20 09:40 Freq: Status: Active Protocol: Activity Type Activity Date Activity User E-Sign Co-Sign Detail Recorded Client Recorded Date Recorded By Document 09/02/20 11:08 MW [id number] 09/02/20 11:12 MW 09/02/20 11:08 Wound Center Nurse 2 [Procedure/Treatment] #1- L BALBUENA -Time 11:09 -Correct Patient Yes -Correct Side, Site, Position Yes -Correct Procedure Yes -Procedure Performed Yes -Type of Procedure Debridement -Clinical Debridement Subcutaneous -Tissue Removed Subcutaneous -Post Debridement (cm) - Length 2.5 -Post Debridement (cm) - Width 2.1 -Post Debridement (cm) - Depth 0.2 -Total Square (Post) (cm) 5.25 -Area of Debridement (cm) - Length 2.5 -Area of Debridement (cm) - Width 2.1 -Total Square (Area) (cm) 5.25 -Tunneling No -Undermining/Tunneling No -Circular Undermining No -Wound/Ulcer Outcome Not Healed -Ulcer Cleansing Rinsed/ Irrigated with Saline -Foul Odor after Cleansing No -Bioengineered Tissue No -Bleeding Controlled with Pressure -Offloading No -Treatment Response Procedure Tolerated Well -Debridement - Subq, 1st 20sq cm Yes [See Physician Procedure note for Specifics] Pain Scale: 0-10 Numeric [Pain] -Is Patient Pain Free? Yes - Nurse 3 - General Ulcer D/C NN Start: 08/19/20 09:40 Freq: Status: Active Protocol: Activity Type Activity Date Activity User E-Sign Co-Sign Detail Recorded Client Recorded Date Recorded By Document 09/02/20 11:12 MW [id number] 09/02/20 11:15 MW 09/02/20 11:12 Wound Care Nurse 3 [Wound Dressing] #1- L BALBUE[place] -Ulcer Cleansing Rinsed/ Irrigated with Saline -Foul Odor after Cleansing No -Negative Pressure Wound Therapy N/A -Primary Dressing Applied Promogran -Primary Dressing Covered/Secured Dry Gauze & with Roll Gauze, Secured with Tape -Promogran 2 [Compression Applied] Left -Lotion applied to leg before No compression wrap -Size of Tubigrip Used Size F [Post Procedure Tolerated] -Treatment Response Procedure Tolerated Well Pain Scale: 0-10 Numeric [Pain] -Is Patient Pain Free? Yes Teaching: Wound Center [Wound Center Education] (Items with an * have Printed Materials Available- Please identify what is given to patient under the Teaching materials given to patient and caregiver Section. Dressing Your Wound -Person Taught Patient -Teaching Method Discussion, Demonstration -Response to teaching Verbalize understanding - Visit Discharge [Visit Discharge Information] -Discharge Condition Stable -Ambulatory Status Ambulatory -Transportation Private Auto -Accompanied by self -Medication Reconcilliation completed No & provided to patient/care provider -Clinical Summary of Care Provided Yes Musculoskeletal: No Tenderness to Palpation of Joints or Extremities Lymphatic: No Cervical, Supraclavicular, or Inguinal Adenopathy Neurological: Cranial nerves II-XII grossly intact, Neuro grossly intact Psych/Mental Status: Normal Affect, Appropriate, Alert and oriented to time, place, person, mood and affect Debridement Note Post-Debridement Measurements/Treatment ROSS - Nurse 2 - General Ulcer CM Notes Start: 08/19/20 09:40 Freq: Status: Active Protocol: Activity Type Activity Date Activity User E-Sign Co-Sign Detail Recorded Client Recorded Date Recorded By Document 08/19/20 09:56 MW [id number] 08/19/20 10:00 MW Document 08/26/20 11:23 MW [id number] 08/26/20 11:24 MW Document 09/02/20 11:08 MW [id number] 09/02/20 11:12 MW 08/19/20 08/26/20 09/02/20 09:56 11:23 11:08 Wound Center Nurse 2 #1- L BALBUENA -Time 09:56 11:24 11:09 -Correct Patient Yes Yes Yes -Correct Side, Site, Position Yes Yes Yes -Correct Procedure Yes Yes Yes -Procedure Performed Yes Yes Yes -Type of Procedure Debridement Debridement Debridement -Clinical Debridement Subcutaneous Subcutaneous Subcutaneous -Tissue Removed Subcutaneous Subcutaneous Subcutaneous -Post Debridement (cm) - Length 2.8 2.0 2.5 -Post Debridement (cm) - Width 2.5 2.5 2.1 -Post Debridement (cm) - Depth 0.3 0.3 0.2 -Total Square (Post) (cm) 7.00 5.00 5.25 -Area of Debridement (cm) - Length 2.8 2.0 2.5 -Area of Debridement (cm) - Width 2.5 2.5 2.1 -Total Square (Area) (cm) 7.00 5.00 5.25 -Tunneling No No No -Undermining/Tunneling No No No -Circular Undermining No No No -Wound/Ulcer Outcome Not Healed Not Healed Not Healed -Ulcer Cleansing Rinsed/ Rinsed/ Rinsed/ Irrigated with Irrigated with Irrigated with Saline Saline Saline -Foul Odor after Cleansing No No No -Bioengineered Tissue No No No -Bleeding Controlled with Pressure Pressure Pressure -Offloading No No No -Treatment Response Procedure Procedure Procedure Tolerated Well Tolerated Well Tolerated Well -Debridement - Subq, 1st 20sq cm Yes Yes Yes Pain Scale: 0-10 Numeric Is Patient Pain Free? Yes Yes Yes ROSS - Nurse 3 - General Ulcer D/C NN Start: 08/19/20 09:40 Freq: Status: Active Protocol: Activity Type Activity Date Activity User E-Sign Co-Sign Detail Recorded Client Recorded Date Recorded By Document 08/19/20 10:07 MW [id number] 08/19/20 10:08 MW Document 08/26/20 11:31 MT [id number] 08/26/20 11:33 MT Document 09/02/20 11:12 MW [id number] 09/02/20 11:15 MW 08/19/20 08/26/20 09/02/20 10:07 11:31 11:12 Wound Care Nurse 3 #1- L BALBUE[place] -Ulcer Cleansing Rinsed/ Rinsed/ Rinsed/ Irrigated with Irrigated with Irrigated with Saline Saline Saline -Foul Odor after Cleansing No No No -Negative Pressure Wound Therapy N/A N/A -Primary Dressing Applied Promogran NonAdherent Promogran Contact Layer, Promogran -Primary Dressing Covered/Secured with Dry Gauze & Dry Gauze & Dry Gauze & Roll Gauze, Roll Gauze, Roll Gauze, Secured with Secured with Secured with Tape Tape Tape -Promogran 2 2 2 Left -Lotion applied to leg before No No compression wrap -Tubular Bandage Single Layer -Size of Tubigrip Used Size F Size F Size F -Size F ($) 1 Treatment Response Procedure Procedure Procedure Tolerated Well Tolerated Well Tolerated Well Pain Scale: 0-10 Numeric Is Patient Pain Free? Yes Yes Yes Teaching: Wound Center Dressing Your Wound -Person Taught Patient Patient -Teaching Method Discussion, Discussion, Demonstration Demonstration -Response to teaching Verbalize Verbalize understanding understanding WC - Visit Discharge Discharge Condition Stable Stable Stable Ambulatory Status Ambulatory Ambulatory Ambulatory Transportation Private Auto Private Auto Private Auto Accompanied by SELF self Medication Reconcilliation completed & No No provided to patient/care provider Clinical Summary of Care Provided Yes Yes Wound debrided: [place] Laterality: Left Type of Debridement: Excisional debridement Anesthesia Used: 5% Lidocaine Gel Depth: Down to and including healthy tissue, in the subcutaneous layer Percentage of wound debrided: 100 Instrument Used: 7mm curette Tissue Removed: Slough and devitalized tissue Severity: Limited To Skin Breakdown Amount of bleeding with debridement: Mild Bleeding Controlled with: Compression and gauze Patient tolerated procedure well Assessment/Plan Active Problems (Last Reviewed 07/25/19 @ 11:34 by Amina Tipton) Dehiscence of surgical wound (Acute) Infected wound (Acute) Stage III chronic kidney disease (Chronic) CAD (coronary artery disease) (Chronic) Assessment: Dehisced surgical laceration to left lower balbuena. Edema swelling infection left lower leg. History of CHF Plan: Wash leg with antibacterial soap. Apply Promogran to open area only. Cover with Adaptic gauze Rajni. Double layer Tubigrip. Linezolid 600 mg 1 p.o. twice daily for 14 days. Metronidazole 250 mg 1 p.o. 3 times daily x14 days. Follow-up in 1 week. Fluconazole 150 mg 1 p.o. now may repeat in 3 days as needed for yeast infections
[2020-09-09 10:48] VITALS: BP 121/42; PULSE 84; RESP 18; TEMP 36.1; BMI 24.9
--- NOTE | 2020-09-09 11:19 | PN.PCM_ITS ---
(1) Dehiscence of surgical wound Status: Acute Code(s): T81.31XA - Disruption of external operation (surgical) wound, not elsewhere classified, initial encounter (2) CAD (coronary artery disease) Status: Chronic Qualifiers: Code(s): I25.10 - Atherosclerotic heart disease of [place] coronary artery without angina pectoris (3) Stage III chronic kidney disease Status: Chronic Code(s): N18.3 - Chronic kidney disease, stage 3 (moderate) (4) Infected wound Status: Acute Code(s): T14.8XXA - Other injury of unspecified body region, initial encounter; L08.9 - Local infection of the skin and subcutaneous tissue, unspecified (5) Thrush, oral Status: Acute Code(s): B37.0 - Candidal stomatitis Type of Wound Date of Service: 09/09/20 Chief Complaint: Follow-up left anterior balbuena dehisced laceration History of Wound: He 79-year-old white female that was cutting wood her for the winter. When a piece of wood fell off the pile and hit her left balbuena. Patient was taken to the emergency room on 07/24/2000 where it was Steri-Stripped and secured with sutures and bandaged. She has been wearing a thin stockinette over top to hold in place. Then she found her leg was starting to increase in swelling and redness in the ankle area below the laceration warm to touch and increased pain. Patient was referred to us Progress of Wound: The flap laceration is taking hold and healing. She started complaining again of pain in her lower leg and complain of increasing redness recultures show several aerobic and anaerobic bugs started her on linezolid and metronidazole which she just started on Monday. We switched her to Promogran which healed the outer rim of the laceration well. We will continue with Promogran and follow-up in 1 week. Has developed oral thrush that will be treated with fluconazole. - Physical Exam Vital Signs Temp Pulse Resp BP 97 F L 84 18 121/42 H 09/09/20 10:48 09/09/20 10:48 09/09/20 10:48 09/09/20 10:48 General: Oriented x3, Cooperative, Well developed HEENT: Atraumatic, PERRLA Oral: Moist Mucosa Neck: Supple, No JVD Lungs: Clear to auscultation, Normal air movement Cardiovascular: Regular rate, Regular Rhythm Abdomen: Bowel Sounds Present, Soft, Non Tender, No Hepato-splenomegaly Extremities: No clubbing, No edema, - - Left balbuena wound from trauma healing well still has an opening in the center that can the deep has developed some oral thrush also Wound Measurements and Assessment WC - Nurse 1 - General Ulcer Measurement Start: 08/19/20 09:40 Freq: Status: Active Protocol: Activity Type Activity Date Activity User E-Sign Co-Sign Detail Recorded Client Recorded Date Recorded By Document 09/09/20 10:48 RB [id number] 09/09/20 10:49 RB 09/09/20 10:48 Wound Center Nurse 1 [Ulcer Assessment] #1- L BALB[place]NA -Combined with other wound No -Current Size (cm) - Length 1.5 -Current Size (cm) - Width 1.1 -Current Size (cm) - Depth 0.1 -Total Square Cm 1.65 -Tunneling No -Undermining/Tunneling No -Circular Undermining No -Exudate Amt Small -Exudate Type Serosanguineous -Wound Margin Flat & Intact -Granulation Amt Medium (34-66%) -Granulation Quality [place],Red -Slough/Fibrin Yes -Necrosis Amt Small (1-33%) -Necrotic Tissue Type Adherent Slough -Structure Exposed N/A -Texture (Ade-wound Skin Appearance) Assessed -Moisture (Ade-wound Skin Appearance Assessed ) -Color (Ade-wound Skin Appearance) Assessed -Temperature (Ade-wound Skin No Abnormality Appearance) (Pt Warm) -Tenderness on Palpation (Ade-wound No Skin Appearance) -Ulcer Cleansing Wound Cleanser -Foul Odor after Cleansing No -Anesthetic Used 4% Lidocaine Solution WC - Nurse 2 - General Ulcer CM Notes Start: 08/19/20 09:40 Freq: Status: Active Protocol: Activity Type Activity Date Activity User E-Sign Co-Sign Detail Recorded Client Recorded Date Recorded By Document 09/09/20 10:56 MW [id number] 09/09/20 11:00 MW 09/09/20 10:56 Wound Center Nurse 2 [Procedure/Treatment] -Time 10:56 -Correct Patient Yes -Correct Side, Site, Position Yes -Correct Procedure Yes -Procedure Performed Yes -Type of Procedure Debridement -Clinical Debridement Subcutaneous -Tissue Removed Subcutaneous -Post Debridement (cm) - Length 1.7 -Post Debridement (cm) - Width 1.7 -Post Debridement (cm) - Depth 0.2 -Total Square (Post) (cm) 2.89 -Area of Debridement (cm) - Length 1.7 -Area of Debridement (cm) - Width 1.7 -Total Square (Area) (cm) 2.89 -Tunneling No -Undermining/Tunneling No -Circular Undermining No -Wound/Ulcer Outcome Not Healed -Ulcer Cleansing Rinsed/ Irrigated with Saline -Foul Odor after Cleansing No -Bioengineered Tissue No -Bleeding Controlled with Pressure -Offloading No -Treatment Response Procedure Tolerated Well -Debridement - Subq, 1st 20sq cm Yes [See Physician Procedure note for Specifics] Pain Scale: 0-10 Numeric [Pain] -Is Patient Pain Free? Yes Musculoskeletal: No Tenderness to Palpation of Joints or Extremities Lymphatic: No Cervical, Supraclavicular, or Inguinal Adenopathy Neurological: Cranial nerves II-XII grossly intact, Neuro grossly intact Psych/Mental Status: Normal Affect, Appropriate Debridement Note Post-Debridement Measurements/Treatment WC - Nurse 2 - General Ulcer CM Notes Start: 08/19/20 09:40 Freq: Status: Active Protocol: Activity Type Activity Date Activity User E-Sign Co-Sign Detail Recorded Client Recorded Date Recorded By Document 08/19/20 09:56 MW [id number] 08/19/20 10:00 MW Document 08/26/20 11:23 MW [id number] 08/26/20 11:24 MW Document 09/02/20 11:08 MW [id number] 09/02/20 11:12 MW Document 09/09/20 10:56 MW [id number] 09/09/20 11:00 MW 08/19/20 08/26/20 09/02/20 09:56 11:23 11:08 Wound Center Nurse 2 #1- L BALBUENA -Time 09:56 11:24 11:09 -Correct Patient Yes Yes Yes -Correct Side, Site, Position Yes Yes Yes -Correct Procedure Yes Yes Yes -Procedure Performed Yes Yes Yes -Type of Procedure Debridement Debridement Debridement -Clinical Debridement Subcutaneous Subcutaneous Subcutaneous -Tissue Removed Subcutaneous Subcutaneous Subcutaneous -Post Debridement (cm) - Length 2.8 2.0 2.5 -Post Debridement (cm) - Width 2.5 2.5 2.1 -Post Debridement (cm) - Depth 0.3 0.3 0.2 -Total Square (Post) (cm) 7.00 5.00 5.25 -Area of Debridement (cm) - Length 2.8 2.0 2.5 -Area of Debridement (cm) - Width 2.5 2.5 2.1 -Total Square (Area) (cm) 7.00 5.00 5.25 -Tunneling No No No -Undermining/Tunneling No No No -Circular Undermining No No No -Wound/Ulcer Outcome Not Healed Not Healed Not Healed -Ulcer Cleansing Rinsed/ Rinsed/ Rinsed/ Irrigated with Irrigated with Irrigated with Saline Saline Saline -Foul Odor after Cleansing No No No -Bioengineered Tissue No No No -Bleeding Controlled with Pressure Pressure Pressure -Offloading No No No -Treatment Response Procedure Procedure Procedure Tolerated Well Tolerated Well Tolerated Well -Debridement - Subq, 1st 20sq cm Yes Yes Yes Pain Scale: 0-10 Numeric Is Patient Pain Free? Yes Yes Yes 09/09/20 10:56 Wound Center Nurse 2 #1- L BALB[place]NA -Time 10:56 -Correct Patient Yes -Correct Side, Site, Position Yes -Correct Procedure Yes -Procedure Performed Yes -Type of Procedure Debridement -Clinical Debridement Subcutaneous -Tissue Removed Subcutaneous -Post Debridement (cm) - Length 1.7 -Post Debridement (cm) - Width 1.7 -Post Debridement (cm) - Depth 0.2 -Total Square (Post) (cm) 2.89 -Area of Debridement (cm) - Length 1.7 -Area of Debridement (cm) - Width 1.7 -Total Square (Area) (cm) 2.89 -Tunneling No -Undermining/Tunneling No -Circular Undermining No -Wound/Ulcer Outcome Not Healed -Ulcer Cleansing Rinsed/ Irrigated with Saline -Foul Odor after Cleansing No -Bioengineered Tissue No -Bleeding Controlled with Pressure -Offloading No -Treatment Response Procedure Tolerated Well -Debridement - Subq, 1st 20sq cm Yes Pain Scale: 0-10 Numeric Is Patient Pain Free? Yes - Nurse 3 - General Ulcer D/C NN Start: 08/19/20 09:40 Freq: Status: Active Protocol: Activity Type Activity Date Activity User E-Sign Co-Sign Detail Recorded Client Recorded Date Recorded By Document 08/19/20 10:07 [id number] 08/19/20 10:08 MW Document 08/26/20 11:31 MT [id number] 08/26/20 11:33 MT Document 09/02/20 11:12 MW [id number] 09/02/20 11:15 MW 08/19/20 08/26/20 09/02/20 10:07 11:31 11:12 Wound Care Nurse 3 #1- L [place] -Ulcer Cleansing Rinsed/ Rinsed/ Rinsed/ Irrigated with Irrigated with Irrigated with Saline Saline Saline -Foul Odor after Cleansing No No No -Negative Pressure Wound Therapy N/A N/A -Primary Dressing Applied Promogran NonAdherent Promogran Contact Layer, Promogran -Primary Dressing Covered/Secured with Dry Gauze & Dry Gauze & Dry Gauze & Roll Gauze, Roll Gauze, Roll Gauze, Secured with Secured with Secured with Tape Tape Tape -Promogran 2 2 2 Left -Lotion applied to leg before No No compression wrap -Tubular Bandage Single Layer -Size of Tubigrip Used Size F Size F Size F -Size F ($) 1 Treatment Response Procedure Procedure Procedure Tolerated Well Tolerated Well Tolerated Well Pain Scale: 0-10 Numeric Is Patient Pain Free? Yes Yes Yes Teaching: Wound Center Dressing Your Wound -Person Taught Patient Patient -Teaching Method Discussion, Discussion, Demonstration Demonstration -Response to teaching Verbalize Verbalize understanding understanding WC - Visit Discharge Discharge Condition Stable Stable Stable Ambulatory Status Ambulatory Ambulatory Ambulatory Transportation Private Auto Private Auto Private Auto Accompanied by SELF self Medication Reconcilliation completed & No No provided to patient/care provider Clinical Summary of Care Provided Yes Yes Wound debrided: Left balbuena Type of Debridement: Excisional debridement Anesthesia Used: 5% Lidocaine Gel Depth: Down to and including healthy tissue, in the subcutaneous layer Percentage of wound debrided: 100 Instrument Used: 5mm curette Tissue Removed: Fibrin Severity: Limited To Skin Breakdown Amount of bleeding with debridement: Mild Bleeding Controlled with: Compression and gauze Assessment/Plan Active Problems (Last Reviewed 07/25/19 @ 11:34 by Amina Tipton) Dehiscence of surgical wound (Acute) Infected wound (Acute) Stage III chronic kidney disease (Chronic) CAD (coronary artery disease) (Chronic) Assessment: Dehisced surgical laceration to left lower balbuena. Edema swelling infection left lower leg. History of CHF Plan: Wash leg with antibacterial soap. Apply Promogran to open area only. Cover with Adaptic gauze Raj[place]. Double layer Tubigrip. Finish Linezolid 600 mg 1 p.o. twice daily for 14 days. Finish metronidazole 250 mg 1 p.o. 3 times daily x14 days. Follow-up in 1 week. Fluconazole 100 mg 1 p.o. q day for 14 days as needed for oral thrush
[2020-09-16 10:24] VITALS: BP 100/50; PULSE 97; RESP 16; TEMP 36.1; BMI 24.9
--- NOTE | 2020-09-16 11:31 | PN.PCM_ITS ---
(1) Dehiscence of surgical wound Status: Acute Qualifiers: Encounter type: subsequent encounter Qualified Code(s): T81.31XD - Disruption of external operation (surgical) wound, not elsewhere classified, subsequent encounter Code(s): T81.31XA - Disruption of external operation (surgical) wound, not elsewhere classified, initial encounter (2) CAD (coronary artery disease) Status: Chronic Qualifiers: Code(s): I25.10 - Atherosclerotic heart disease of [place] coronary artery without angina pectoris (3) Stage III chronic kidney disease Status: Chronic Code(s): N18.3 - Chronic kidney disease, stage 3 (moderate) (4) Infected wound Status: Acute Code(s): T14.8XXA - Other injury of unspecified body region, initial encounter; L08.9 - Local infection of the skin and subcutaneous tissue, unspecified (5) Thrush, oral Status: Acute Code(s): B37.0 - Candidal stomatitis Type of Wound Date of Service: 09/16/20 Chief Complaint: Follow-up left anterior balbuena dehisced laceration History of Wound: He 79-year-old white female that was cutting wood her for the winter. When a piece of wood fell off the pile and hit her left balbuena. Patient was taken to the emergency room on 07/24/2000 where it was Steri-Stripped and secured with sutures and bandaged. She has been wearing a thin stockinette over top to hold in place. Then she found her leg was starting to increase in swelling and redness in the ankle area below the laceration warm to touch and increased pain. Patient was referred to us Progress of Wound: Wound is healed patient will be discharged from the wound center - Physical Exam Vital Signs Temp Pulse Resp BP 97 F L 97 16 100/50 L 09/16/20 10:24 09/16/20 10:24 09/16/20 10:24 09/16/20 10:24 General: Oriented x3, Cooperative, Well developed HEENT: Atraumatic, PERRLA Oral: Moist Mucosa Neck: Supple, No JVD Lungs: Clear to auscultation, Normal air movement Cardiovascular: Regular rate, Regular Rhythm Abdomen: Bowel Sounds Present, Soft, Non Tender, No Hepato-splenomegaly Extremities: No clubbing, No edema Skin: Ulcer/ Wound - Left balbuena traumatic wound dehisced from surgical sutures is healed Wound Measurements and Assessment WC - Nurse 1 - General Ulcer Measurement Start: 08/19/20 09:40 Freq: Status: Discharge Protocol: Activity Type Activity Date Activity User E-Sign Co-Sign Detail Recorded Client Recorded Date Recorded By Document 09/16/20 10:24 BMF [id number] 09/16/20 10:30 BMF Edit Status 09/16/20 10:44 BKG DAEMON Active=>Discharge [id number] 09/16/20 10:44 BKG DAEMON 09/16/20 10:24 Wound Center Nurse 1 [Ulcer Assessment] #1- L [place] -Combined with other wound No -Current Size (cm) - Length 0.1 -Current Size (cm) - Width 0.1 -Current Size (cm) - Depth 0.1 -Total Square Cm 0.01 -Photo Taken No -Epithelialization Medium 34-66% -Tunneling No -Undermining/Tunneling No -Circular Undermining No -Exudate Amt None Present -Wound Margin Distinct, Outline Attached -Granulation Amt None Present (0 %) -Slough/Fibrin Yes -Necrosis Amt Small (1-33%) -Necrotic Tissue Type Adherent Slough -Texture (Ade-wound Skin Appearance) Assessed, Scarring -Moisture (Ade-wound Skin Appearance Assessed ) -Color (Ade-wound Skin Appearance) Assessed -Temperature (Ade-wound Skin No Abnormality Appearance) (Pt Warm) -Tenderness on Palpation (Ade-wound No Skin Appearance) -Ulcer Cleansing Rinsed/ Irrigated with Saline -Foul Odor after Cleansing No -Anesthetic Used 4% Lidocaine Solution [Edema Assessment] -Lower Limb Edema Present Yes -Left Calf (cm) 36.2 -Left Ankle (cm) 23.1 WC - Nurse 2 - General Ulcer CM Notes Start: 08/19/20 09:40 Freq: Status: Discharge Protocol: Activity Type Activity Date Activity User E-Sign Co-Sign Detail Recorded Client Recorded Date Recorded By Document 09/16/20 10:35 MW [id number] 09/16/20 10:36 MW Edit Status 09/16/20 10:44 BKG DAEMON Active=>Discharge [id number] 09/16/20 10:44 BKG DAEMON 09/16/20 10:35 Wound Center Nurse 2 [Procedure/Treatment] #1- L [place] -Time 10:35 -Correct Patient Yes -Correct Side, Site, Position Yes -Correct Procedure Yes -Procedure Performed No -Post Debridement (cm) - Length 0 -Post Debridement (cm) - Width 0 -Post Debridement (cm) - Depth 0 -Total Square (Post) (cm) 0 -Wound/Ulcer Outcome Healed- Epithelialized [See Physician Procedure note for Specifics] Pain Scale: 0-10 Numeric [Pain] -Is Patient Pain Free? Yes WC - Nurse 3 - General Ulcer D/C NN Start: 08/19/20 09:40 Freq: Status: Discharge Protocol: Activity Type Activity Date Activity User E-Sign Co-Sign Detail Recorded Client Recorded Date Recorded By Document 09/16/20 10:36 MW [id number] 09/16/20 10:37 MW Edit Status 09/16/20 10:44 BKG DAEMON Active=>Discharge [id number] 09/16/20 10:44 BKG DAEMON 09/16/20 10:36 Wound Care Nurse 3 [Wound Dressing] #1- L [place] -Ulcer Cleansing Not Cleansed -Primary Dressing Covered/Secured Dry Gauze & with Roll Gauze, Secured with Tape Teaching: Wound Center [Wound Center Education] (Items with an * have Printed Materials Available- Please identify what is given to patient under the Teaching materials given to patient and caregiver Section. Discharge Instructions -Person Taught Patient -Teaching Method Discussion -Response to teaching Verbalize understanding WC - Visit Discharge [Visit Discharge Information] -Discharge Condition Stable -Ambulatory Status Ambulatory -Transportation Private Auto -Accompanied by SELF -Medication Reconcilliation completed No & provided to patient/care provider -Clinical Summary of Care Provided Yes Musculoskeletal: No Tenderness to Palpation of Joints or Extremities Lymphatic: No Cervical, Supraclavicular, or Inguinal Adenopathy Neurological: Cranial nerves II-XII grossly intact, Neuro grossly intact Psych/Mental Status: Normal Affect, Appropriate Debridement Note Post-Debridement Measurements/Treatment ROSS - Nurse 2 - General Ulcer CM Notes Start: 08/19/20 09:40 Freq: Status: Discharge Protocol: Activity Type Activity Date Activity User E-Sign Co-Sign Detail Recorded Client Recorded Date Recorded By Document 08/19/20 09:56 MW [id number] 08/19/20 10:00 MW Document 08/26/20 11:23 MW [id number] 08/26/20 11:24 MW Document 09/02/20 11:08 MW [id number] 09/02/20 11:12 MW Document 09/09/20 10:56 MW [id number] 09/09/20 11:00 MW Document 09/16/20 10:35 MW [id number] 09/16/20 10:36 MW 08/19/20 08/26/20 09/02/20 09:56 11:23 11:08 Wound Center Nurse 2 #1- L BALB[place] -Time 09: 11:24 11:09 -Correct Patient Yes Yes Yes -Correct Side, Site, Position Yes Yes Yes -Correct Procedure Yes Yes Yes -Procedure Performed Yes Yes Yes -Type of Procedure Debridement Debridement Debridement -Clinical Debridement Subcutaneous Subcutaneous Subcutaneous -Tissue Removed Subcutaneous Subcutaneous Subcutaneous -Post Debridement (cm) - Length 2.8 2.0 2.5 -Post Debridement (cm) - Width 2.5 2.5 2.1 -Post Debridement (cm) - Depth 0.3 0.3 0.2 -Total Square (Post) (cm) 7.00 5.00 5.25 -Area of Debridement (cm) - Length 2.8 2.0 2.5 -Area of Debridement (cm) - Width 2.5 2.5 2.1 -Total Square (Area) (cm) 7.00 5.00 5.25 -Tunneling No No No -Undermining/Tunneling No No No -Circular Undermining No No No -Wound/Ulcer Outcome Not Healed Not Healed Not Healed -Ulcer Cleansing Rinsed/ Rinsed/ Rinsed/ Irrigated with Irrigated with Irrigated with Saline Saline Saline -Foul Odor after Cleansing No No No -Bioengineered Tissue No No No -Bleeding Controlled with Pressure Pressure Pressure -Offloading No No No -Treatment Response Procedure Procedure Procedure Tolerated Well Tolerated Well Tolerated Well -Debridement - Subq, 1st 20sq cm Yes Yes Yes Pain Scale: 0-10 Numeric Is Patient Pain Free? Yes Yes Yes 09/09/20 09/16/20 10:56 10:35 Wound Center Nurse 2 #1- L BALB[place] -Time 10:56 10:35 -Correct Patient Yes Yes -Correct Side, Site, Position Yes Yes -Correct Procedure Yes Yes -Procedure Performed Yes No -Type of Procedure Debridement -Clinical Debridement Subcutaneous -Tissue Removed Subcutaneous -Post Debridement (cm) - Length 1.7 0 -Post Debridement (cm) - Width 1.7 0 -Post Debridement (cm) - Depth 0.2 0 -Total Square (Post) (cm) 2.89 0 -Area of Debridement (cm) - Length 1.7 -Area of Debridement (cm) - Width 1.7 -Total Square (Area) (cm) 2.89 -Tunneling No -Undermining/Tunneling No -Circular Undermining No -Wound/Ulcer Outcome Not Healed Healed- Epithelialized -Ulcer Cleansing Rinsed/ Irrigated with Saline -Foul Odor after Cleansing No -Bioengineered Tissue No -Bleeding Controlled with Pressure -Offloading No -Treatment Response Procedure Tolerated Well -Debridement - Subq, 1st 20sq cm Yes Pain Scale: 0-10 Numeric Is Patient Pain Free? Yes Yes WC - Nurse 3 - General Ulcer D/C NN Start: 08/19/20 09:40 Freq: Status: Discharge Protocol: Activity Type Activity Date Activity User E-Sign Co-Sign Detail Recorded Client Recorded Date Recorded By Document 08/19/20 10:07 MW [id number] 08/19/20 10:08 MW Document 08/26/20 11:31 MT [id number] 08/26/20 11:33 MT Document 09/02/20 11:12 MW [id number] 09/02/20 11:15 MW Document 09/16/20 10:36 MW [id number] 09/16/20 10:37 MW 08/19/20 08/26/20 09/02/20 10:07 11:31 11:12 Wound Care Nurse 3 #1- L [place] -Ulcer Cleansing Rinsed/ Rinsed/ Rinsed/ Irrigated with Irrigated with Irrigated with Saline Saline Saline -Foul Odor after Cleansing No No No -Negative Pressure Wound Therapy N/A N/A -Primary Dressing Applied Promogran NonAdherent Promogran Contact Layer, Promogran -Primary Dressing Covered/Secured with Dry Gauze & Dry Gauze & Dry Gauze & Roll Gauze, Roll Gauze, Roll Gauze, Secured with Secured with Secured with Tape Tape Tape -Promogran 2 2 2 Left -Lotion applied to leg before No No compression wrap -Tubular Bandage Single Layer -Size of Tubigrip Used Size F Size F Size F -Size F ($) 1 Treatment Response Procedure Procedure Procedure Tolerated Well Tolerated Well Tolerated Well Pain Scale: 0-10 Numeric Is Patient Pain Free? Yes Yes Yes Teaching: Wound Center Discharge Instructions -Person Taught -Teaching Method -Response to teaching Dressing Your Wound -Person Taught Patient Patient -Teaching Method Discussion, Discussion, Demonstration Demonstration -Response to teaching Verbalize Verbalize understanding understanding WC - Visit Discharge Discharge Condition Stable Stable Stable Ambulatory Status Ambulatory Ambulatory Ambulatory Transportation Private Auto Private Auto Private Auto Accompanied by SELF self Medication Reconcilliation completed & No No provided to patient/care provider Clinical Summary of Care Provided Yes Yes 09/16/20 10:36 Wound Care Nurse 3 #1- L [place] -Ulcer Cleansing Not Cleansed -Foul Odor after Cleansing -Negative Pressure Wound Therapy -Primary Dressing Applied -Primary Dressing Covered/Secured with Dry Gauze & Roll Gauze, Secured with Tape -Promogran Left -Lotion applied to leg before compression wrap -Tubular Bandage -Size of Tubigrip Used -Size F ($) Treatment Response Pain Scale: 0-10 Numeric Is Patient Pain Free? Teaching: Wound Center Discharge Instructions -Person Taught Patient -Teaching Method Discussion -Response to teaching Verbalize understanding Dressing Your Wound -Person Taught -Teaching Method -Response to teaching WC - Visit Discharge Discharge Condition Stable Ambulatory Status Ambulatory Transportation Private Auto Accompanied by SELF Medication Reconcilliation completed & No provided to patient/care provider Clinical Summary of Care Provided Yes No debridement was completed today Assessment/Plan Active Problems (Last Reviewed 07/25/19 @ 11:34 by Amina Tipton) Dehiscence of surgical wound (Acute) Infected wound (Acute) Thrush, oral (Acute) Stage III chronic kidney disease (Chronic) CAD (coronary artery disease) (Chronic) Assessment: Dehisced surgical laceration to left lower balbuena resolved. Edema swelling infection left lower leg. History of CHF Plan: Discharge from the wound center and follow-up as needed
== END 2020-09-16 10:44 | disposition home or self-care (01) ==
LOC: WC 10:15
PROVIDERS: PCP Family Medicine; Referring Provider Emergency Medicine; Visit Provider Nurse Practitioner
DX: T81.31XA Disruption of external operation (surgical) wound, not elsewhere classified, initial encounter (principal); I25.10 Atherosclerotic heart disease of native coronary artery without angina pectoris; N18.30 Chronic kidney disease, stage 3 unspecified; I50.9 Heart failure, unspecified; B37.0 Candidal stomatitis
CPT/HCPCS: 11042; 87070; 87075; 87077; 87186; 87205; 99213; G0463

== ENCOUNTER → 2020-09-23 13:10 | Outpatient (CLI) | payer MEDICARE, SELFPAY ==
[2019-10-15 22:40] VITALS: BMI 24.6
[2020-09-16 10:24] VITALS: BMI 24.9
[2020-09-23 14:00] LABS: Hematocrit 34.5 % (37-47); Hemoglobin 11.3 g/dL (12.0-15.0); Mean Corp Hgb Conc 32.8 g/dL (32-36); Mean Corpuscular Hgb 30.8 pg (27.0-32.0); Mean Platelet Vol. 9.2 fl (6.2-12.0); Platelet Count 260 K/mm3 (150-450); RBC Distribution Width CV 12.3 % (11.6-14.6); RBC Distribution Width SD 42.6 fl (35.1-43.9); Red Blood Count 3.67 M/mm3 (4.2-5.4); White Blood Count 7.9 K/mm3 (4.4-11.0)
[2020-09-23 14:03] LABS: Albumin, Serum 3.8 g/dL (3.2-5.0); BUN 40 mg/dL (7-18); BUN/Creat Ratio 25.3 RATIO (10-20); Calcium,Total 9.3 mg/dL (8.5-10.1); Chloride 104 mmol/L (98-107); Creatinine, Serum 1.58 mg/dL (0.55-1.02); EST Glomerular Filtration Rate 33 mL/min (>60); Est Glom Filt Rate - Afr Amer 40 mL/min (>60); Glucose 156 mg/dL (74-106); Phosphorus 3.6 mg/dL (2.5-4.9); Potassium 4.1 mmol/L (3.5-5.1); Sodium Level 138 mmol/L (136-145)
== END ==
PROVIDERS: PCP Family Medicine; Referring Provider Internal Medicine Nephrology; Visit Provider Internal Medicine Nephrology
DX: N17.9 Acute kidney failure, unspecified (principal); N18.32 Chronic kidney disease, stage 3b
CPT/HCPCS: 36415; 80069; 85027

== ENCOUNTER 2020-12-02 12:34 | Inpatient (IN) | payer MEDICARE, SELFPAY ==
[2020-12-02] VITALS (8 sets, daily range): BP systolic 110–144; BP diastolic 44–80; PULSE 70–94; RESP 16–18; TEMP 36.4–37.3; O2SAT 97–99; BMI 24.9; BMI 26.0
--- NOTE | 2020-12-02 12:53 | CT_ITS ---
STUDY: CT ABDOMEN AND PELVIS WITH CONTRAST REASON FOR EXAM: Female, 79 years old. Abdominal distention RADIATION DOSAGE (If Supplied By Facility): CTDIvol = ( 12.95 ) mGy, DLP = ( 396.61 ) mGycm TECHNIQUE: Transaxial images were obtained from the dome of the diaphragm to the symphysis pubis without oral contrast. IV 100mL Isovue-300 was administered. Sagittal and coronal images were reconstructed. Individualized dose optimization techniques were used for this CT. COMPARISON: Comparison is made with prior examination dated 10/15/2019. FINDINGS: The visualized lung bases are unremarkable. The visualized portions of the heart are within normal limits. Minimally dilated intrahepatic biliary ducts. The patient is status post cholecystectomy. Normal spleen. Normal pancreas. Normal bilateral adrenal glands. Normal right kidney. 1.2 cm cyst in the mid lower pole of the left kidney. There is a small hiatal hernia. There is evidence of a multiple fluid dilated small bowel loops. Fecal material is seen throughout the colon. There is non-visualization of the appendix. There is diffuse atherosclerotic calcification of the abdominal aorta, without a demonstrated aneurysm. Normal inferior vena cava. Normal retroperitoneum. Dilated urinary bladder. There is absence of the uterus consistent with a prior hysterectomy. Normal abdominal wall. There are diffuse degenerative changes of the visualized lumbar spine. Levoscoliosis. CT/Abdomen/Pelvis W IV Cont ONLY IMPRESSION: The findings suggest left early small bowel obstruction. Follow-up is recommended. Status post cholecystectomy and mild degree of dilated intrahepatic biliary ducts. Small left renal cyst. Electronically Signed: Clif Peraza MD at 14:20 EDT , Service support ,
--- NOTE | 2020-12-02 12:53 | ED.VIS.GEN ---
History of Present Illness Chief Complaint: Abd Pain Informant: Patient Narrative: 79-year-old female with history of ruptured bowel obstruction in 2016 and 2 subsequent bowel obstruction since presenting with concern for bowel obstruction currently. She is experiencing nausea and pain. She states her stomach is distended. She is not had a fever. - Past Medical History (1) Asthma Status: Chronic (2) CAD (coronary artery disease) Status: Chronic (3) Congestive heart failure Status: Chronic Past Medical History - Allergies and Home Meds Allergies/Adverse Reactions: Allergies clarithromycin [From Biaxin] Allergy (Verified 12/02/20 12:36) Fever diazepam [From Valium] Allergy (Verified 12/02/20 12:36) seizures SEIZURES diphenhydramine HCl [From Benadryl] Allergy (Verified 12/02/20 12:36) difficulty breathing esomeprazole magnesium [From Nexium] Allergy (Verified 12/02/20 12:36) chest pain NSAIDS (Non-Steroidal Anti-Inflamma Allergy (Verified 12/02/20 12:36) Other CKD STAGE 4 Penicillins Allergy (Verified 12/02/20 12:36) Rash pentazocine lactate [From Talwin] Allergy (Verified 12/02/20 12:36) quit breathing Sulfa (Sulfonamide Antibiotics) Allergy (Verified 12/02/20 12:36) Rash sulfur dioxide Allergy (Verified 12/02/20 12:36) massive headaches Primary Care Physician: Julius Sandoval MD [Primary Care Provider] - Surgical History: cholecystectomy, hysterectomy, mastectomy, - - Bowel resection. Bowel obstruction Lives: Spouse/ Significant Other Smoking Status: Never smoker Alcohol: None Drugs: None - Family History Maternal Family History: Family History (Last Reviewed 07/25/19 @ 11:34 by Amina Tipton) Mother Cancer Thyroid disorder Father Heart disease Family History: Reports: No pertinent history Paternal Family History: Family History (Last Reviewed 07/25/19 @ 11:34 by Amina Tipton) Mother Cancer Thyroid disorder Father Heart disease Family History: Reports: No pertinent history Review of Systems General: Denies: Chills, Fever, Sweats Eyes: Denies: Visual changes - bilaterally, Diplopia ENT: Denies: Rhinorrhea, Sore throat Cardiovascular: Denies: Chest pain, Palpitations Respiratory: Denies: Dyspnea, Cough, Dyspnea on exertion Gastrointestinal: Reports: Abdominal pain, Nausea, Vomiting. Denies: Diarrhea, Melena, Hematochezia Musculoskeletal: Denies: Back pain, Extremity Pain Neurological: Denies: Headache, Weakness, Numbness Psych: Denies: Depression, Anxiety Physical Exam Vital Signs/Narrative: Vital Signs Temp Pulse Resp BP Pulse Ox 12/02/20 12:34 97.6 F L 94 18 144/80 H 99 Inital Vital Signs reviewed: Yes General: Well nourished Head: Normocephalic, Atraumatic Eyes: Perrl, EOMI ENT: Moist mucous membranes, No rhinorrhea Cardiovascular: Regular rate, Regular rhythm Respiratory: No distress, CTA bilaterally Abdomen: - - Tender distended abdomen with high-pitched bowel sounds. Extremities: Nontender Skin: Normal color, No rash Neurological: Alert, Oriented x3, Cranial nerves II-XII grossly intact Psychological: Normal affect, Normal Mood Diagnostic/Tx/Re-eval Clinical Impression(s) from Imaging Studies Abdomen/Pelvis CT 12/02/20 12:53 IMPRESSION: The findings suggest left early small bowel obstruction. Follow-up is recommended. Status post cholecystectomy and mild degree of dilated intrahepatic biliary ducts. Small left renal cyst. Electronically Signed: Clif Peraza MD at 14:20 EDT , Service support , Laboratory Data 12/02/20 12/02/20 12/02/20 13:10 13:10 13:19 WBC 8.8 RBC 4.16 L Hgb 13.3 Hct 41.6 MCV 100.0 H MCH 32.0 MCHC 32.0 RDW Std Deviation 52.1 H RDW Coeff of Yariel 14.1 Plt Count 210 MPV 8.4 Immature Gran % (Auto) 0.200 Neut % (Auto) 88.2 H Lymph % (Auto) 3.7 L [place] % (Auto) 7.2 Eos % (Auto) 0.5 Baso % (Auto) 0.2 Absolute Neuts (auto) 7.8 H Absolute Lymphs (auto) 0.33 L Nucleated RBC % 0 Differential Comment SCANNED Sodium 140 Potassium 4.7 Chloride 108 H Carbon Dioxide 28.0 Anion Gap 4 L BUN 41 H Creatinine 1.29 H Estim Creat Clear Calc 25.81 Est GFR (MDRD) Af Amer 51 L Est GFR (MDRD) Non-Af 42 L BUN/Creatinine Ratio 31.8 H Glucose 129 H Calcium 9.6 Total Bilirubin 1.20 H AST 18 ALT 20 Alkaline Phosphatase 80 Total Protein 7.2 Albumin 3.9 Globulin 3.3 Albumin/Globulin Ratio 1.2 Lipase 418 H Urine Color STRAW Urine Clarity Clear Urine pH 6.0 Ur Specific [place] 1.010 Urine Protein Negative Urine Glucose (UA) Normal Urine Ketones Negative Urine Occult Blood 25 H Urine Nitrite Negative Urine Bilirubin Negative Urine Urobilinogen Normal Ur Leukocyte Esterase 100 H Urine RBC 0-5 SEEN Urine WBC 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 She states that she has a history of obstruction. She has multiple abdominal surgeries in the past as well. She has white blood cell count of 8.8,hemoglobin 13.3, platelets 210, creatinine 1.29 and is near baseline. Patient's GFR is decreased and will give 500 cc of IV fluids. UA is negative for infection. Patient had CT of the abdomen pelvis with IV contrast which shows early partial small bowel obstruction. Patient counseled of these findings. Patient is refusing an NG tube. I did speak with Dr. David who was okay with admitting her without NG tube as long as the patient understands that she would prefer to do an NG before taking her to the OR for emergent surgery. This was expressed to the patient. Patient will be discussed with hospitalist and admitted to the floor in stable condition. Impression: 1. Partial small bowel obstruction ED Disposition - Plan for ED Patient: Referrals: Julius Sandoval MD [Primary Care Provider] -
[2020-12-02 13:17] LABS: Absolute Lymphocyte Count 0.33 X10^3/uL (0.83-4.51); Absolute Neutrophil Count 7.8 X10^3/uL (2.0-7.7); Basophil# 0.02 X10^3/uL; Basophil% 0.2 % (0-1); Eosinophil# 0.04 X10^3/uL; Eosinophils% 0.5 % (0-5); Hematocrit 41.6 % (37-47); Hemoglobin 13.3 g/dL (12.0-15.0); Lymphocyte # 0.33 X10^3/ul (4.0); Lymphocyte % 3.7 % (19-41); Mean Platelet Vol. 8.4 fl (6.2-12.0); Monocyte# 0.64 X10^3/uL; Monocyte% 7.2 % (0-10); NRBC Flagged by Analyzer 0 % (0-5); Neutrophil # 7.78 X10^3/uL (2.7-7.7); Neutrophil % 88.2 % (47-70); POSITIVE DIFFERENTIAL YES; Platelet Count 210 K/mm3 (150-450); RBC Distribution Width CV 14.1 % (11.6-14.6); RBC Distribution Width SD 52.1 fl (35.1-43.9); Red Blood Count 4.16 M/mm3 (4.2-5.4); White Blood Count 8.8 K/mm3 (4.4-11.0)
[2020-12-02] MEDS: Morphine 4 MG/ML Syringe IV (13:17)
[2020-12-02] MEDS: Ondansetron 4 MG/2 ML Vial IV (13:17)
[2020-12-02 13:19] LABS: Differential Indicated SCAN CRITERIA MET
[2020-12-02 13:34] LABS: Bacteria 0 SEEN /hpf (None Seen); Mucous, Urine 0 SEEN /hpf (<or=2+)
[2020-12-02 13:35] LABS: ALB/GLOB Ratio 1.2 RATIO (0.9-2.4); AST(SGOT) 18 U/L (15-37); Alanine Aminotransfer ALT/SGPT 20 U/L (13-56); Albumin, Serum 3.9 g/dL (3.2-5.0); Alkaline Phosphatase 80 U/L (45-117); Anion Gap 4 (5-15); BUN 41 mg/dL (7-18); BUN/Creat Ratio 31.8 RATIO (10-20); Calcium,Total 9.6 mg/dL (8.5-10.1); Chloride 108 mmol/L (98-107); Creatinine, Serum 1.29 mg/dL (0.55-1.02); EST Glomerular Filtration Rate 42 mL/min (>60); Est Glom Filt Rate - Afr Amer 51 mL/min (>60); Estimated Creatinine Clearance 25.81 ml/min; Globulin 3.3 g/dL (2.2-4.2); Glucose 129 mg/dL (74-106); Lipase 418 U/L (73-393); Potassium 4.7 mmol/L (3.5-5.1); Protein, Total 7.2 g/dL (6.4-8.2); Sodium Level 140 mmol/L (136-145)
[2020-12-02 13:39] LABS: Differential Comment SCANNED
[2020-12-02 14:01] LABS: Glucose, Dipstick Normal (Normal); Nitrite-Dipstick Negative (Negative); Urine Bilirubin Dipstick Negative (Negative); Urine Urobilinogen Normal (Normal)
[2020-12-02 14:10] LABS: Red Blood Cells-Urine 0-5 SEEN /hpf (0-5); Squamous Epithelial Cells - UA 0-5 SEEN /hpf (5-10)
[2020-12-02 14:24] LABS: Color, Urine STRAW (Yellow); Urine Clarity Clear (Clear)
[2020-12-02 14:25] LABS: Ketone-Dipstick Negative (Negative)
[2020-12-02 14:26] LABS: Leukocyte Esterase-Dipstick 100 /ul (Negative); Occult Blood-Urine 25 /ul (Negative); Protein-Dipstick Negative (Negative)
[2020-12-02 14:27] LABS: Transitional Epithelial - Ur 0 SEEN /hpf (0-5)
--- NOTE | 2020-12-02 14:29 | NURSING ---
PER SAMI IN LAB, THE URINALYSIS IS WRONG, HE WILL CORRECT IT. IS AWARE
--- NOTE | 2020-12-02 14:37 | ED.RN ---
PT REFUSING NG TUBE AT THIS TIME. DR BRENNER NOTIFIED.
--- NOTE | 2020-12-02 16:11 | HP.PCM_ITS ---
Problem List (1) GERD (gastroesophageal reflux disease) Status: Chronic Qualifiers: Esophagitis presence: esophagitis presence not specified Qualified Code(s): K21.9 - Gastro-esophageal reflux disease without esophagitis (2) Asthma Status: Chronic Qualifiers: Asthma severity: unspecified severity (3) CAD (coronary artery disease) Status: Chronic Qualifiers: Coronary Disease-Associated Artery/Lesion type: unspecified vessel or lesion type Associated angina: angina presence unspecified (4) Congestive heart failure Status: Chronic Qualifiers: Heart failure type: unspecified Heart failure chronicity: chronic Qualified Code(s): I50.9 - Heart failure, unspecified (5) Hypertension Status: Chronic Qualifiers: Hypertension type: essential hypertension Qualified Code(s): I10 - Essential (primary) hypertension (6) Partial obstruction of small intestine Status: Acute History of Present Illness Date of Admission: 12/02/20 Chief Complaint: Abdominal pain - 2 days The patient is a 79 year old F with past medical history of multiple surgeries, 3 previous histories of bowel obstruction; first 1 resulted in surgery in the [facility], the last 2 where managed conservatively. She stated that she finished her dinner yesterday, started having mid abdominal pain, dull, nonradiating, associated with nausea but no vomiting or diarrhea. This lasted f or couple of hours. It went away and she went to bed. Throughout the night, she felt nauseous. She woke up this morning feeling a little better. She had breakfast, had a bowel movement which was normal for her. She subsequently started having abdominal discomfort again. She had a second bowel movement in the afternoon. This was also normal. She continued to have the abdominal discomfort that was rated 10 out of 10, dull, and nonradiating associated with nausea. It felt like a previous bowel obstruction that she decided to come to the emergency department. Her vitals in the ED were stable. WBC count is 8.8, hemoglobin is 13.3, platelet count is 210, sodium is 140, potassium 4.7, chloride 108, bicarbonate 28, BUN is 41, creatinine is 1.29, this is about her baseline. Her bilirubin is 1.20 but her LFTs are normal. UA is unremarkable. CT of abdomen and pelvis was suggestive of early small bowel obstruction. 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 Allergies clarithromycin [From Biaxin] Allergy (Verified 12/02/20 12:36) Fever diazepam [From Valium] Allergy (Verified 12/02/20 12:36) seizures SEIZURES diphenhydramine HCl [From Benadryl] Allergy (Verified 12/02/20 12:36) difficulty breathing esomeprazole magnesium [From Nexium] Allergy (Verified 12/02/20 12:36) chest pain NSAIDS (Non-Steroidal Anti-Inflamma Allergy (Verified 12/02/20 12:36) Other CKD STAGE 4 Penicillins Allergy (Verified 12/02/20 12:36) Rash pentazocine lactate [From Talwin] Allergy (Verified 12/02/20 12:36) quit breathing Sulfa (Sulfonamide Antibiotics) Allergy (Verified 12/02/20 12:36) Rash sulfur dioxide Allergy (Verified 12/02/20 12:36) massive headaches Home Medications: Ambulatory Orders Medication Instructions Recorded Albuterol Inhaler [Ventolin Hfa] 2 puff INHALATION Q4H PRN PRN 03/20/15 Aspirin [Aspirin, Baby] 81 mg PO QHS 03/20/15 Montelukast [Singulair] 10 mg PO QHS 03/20/15 Spironolactone [Aldactone] 25 mg PO BID 03/20/15 Torsemide [Demadex] 10 mg PO DAILY 03/20/15 Budesonide/Formoterol 160/4.5 2 puff INHALATION BID 06/14/19 [Symbicort 160/4.5 Mcg Inhaler (SP)] Omeprazole 40 mg PO DAILY PRN 06/14/19 Dipyridamole 75 mg PO BID 12/02/20 Losartan Potassium [Cozaar] 12.5 - 25 mg PO DAILY 12/02/20 Surgical History: Surgical History (Last Reviewed 07/25/19 @ 11:34 by Amina Tipton) H/O bilateral mastectomy Z90.13 H/O bilateral oophorectomy Z90.722 H/O dilation and curettage Z98.890 History of cholecystectomy Z90.49 History of colon surgery Z98.890 S/P RAFIA (total abdominal hysterectomy) Z90.710 Surgical History: cholecystectomy, hysterectomy, mastectomy, - - Bowel resection. 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 Denies: Chills, Fever, Malaise, Weakness, Weight Change, Fatigue Eyes: Denies: Blurred vision, Cataracts, Conjunctivae Inflammation, Pain, Redness HEENT: Denies: Difficulty Hearing, Difficulty Swallowing, Head Aches, Hearing Changes, Sinus Congestion, Sinus Drainage Cardiovascular: Denies: Chest Pain, Claudication, Orthopnea, Palpitations, Paroxysmal Noc. Dyspnea Respiratory: Denies: Cough, Shortness of breath at rest, Shortness of breath upon exertion, Sputum production Gastrointestinal: Reports: Abdominal Pain, Nausea. Denies: Constipation, Diarrhea, Vomiting Genitourinary: Denies: Dysuria, Frequency, Incontinence Musculoskeletal: Denies: Joint Pain, Joint stiffness, Joint swelling, Joint Tenderness Skin: Denies: Rash, Wounds Neurological: Denies: Numbness, Tingling, Focal weakness Psychiatric: Denies: Anxiety, Depression, Homicidal Ideations, Suicidal Ideations Hematologic/ Lymphatic: Denies: Easy Bruising, Easy Bleeding VTE Information - Inpt Only VTE Present on Admission: No VTE Pharm Prophylaxis ordered?: Yes Patient Problems: Active and Suspected Problems (Last Reviewed 07/25/19 @ 11:34 by Amina Tipton) Partial obstruction of small intestine (Acute) - Physical Exam Vitals/I&O's: Vital Signs Temp Pulse Resp BP Pulse Ox 97.6 F L 70 18 110/53 L 99 12/02/20 12:34 12/02/20 16:00 12/02/20 16:00 12/02/20 16:00 12/02/20 16:00 Oxygen Delivery Method Room Air Weight: 59.874 kg Body Mass Index (BMI) 24.9 General: Alert, Oriented x3, Cooperative, No apparent distress HEENT: Atraumatic, PERRLA, EOMI, Normocephalic Oral: Moist Mucosa Neck: Supple Lungs: Clear to auscultation, Normal air movement Cardiovascular: Regular rate, Regular Rhythm, Normal S1, Normal S2, No murmurs Abdomen: Bowel Sounds Present, Soft, Non Tender, Non-Distended, Hypoactive Bowel Sounds Extremities: No edema Skin: No rashes Musculoskeletal: No Tenderness to Palpation of Joints or Extremities Lymphatic: No Cervical, Supraclavicular, or Inguinal Adenopathy Neurological: Cranial nerves II-XII grossly intact, Neuro grossly intact Psych/Mental Status: Normal Affect, Appropriate Laboratory Results 12/02/20 13:10: WBC 8.8, RBC 4.16 L, Hgb 13.3, Hct 41.6, MCV 100.0 H, MCH 32.0, MCHC 32.0, RDW Std Deviation 52.1 H, RDW Coeff of Yariel 14.1, Plt Count 210, MPV 8.4, Immature Gran % (Auto) 0.200, Neut % (Auto) 88.2 H, Lymph % (Auto) 3.7 L, [place] % (Auto) 7.2, Eos % (Auto) 0.5, Baso % (Auto) 0.2, Absolute Neuts (auto) 7.8 H, Absolute Lymphs (auto) 0.33 L, Nucleated RBC % 0, Differential Comment SCANNED 12/02/20 13:10: Sodium 140, Potassium 4.7, Chloride 108 H, Carbon Dioxide 28.0, Anion Gap 4 L, BUN 41 H, Creatinine 1.29 H, Estim Creat Clear Calc 25.81, Est GFR (MDRD) Af Amer 51 L, Est GFR (MDRD) Non-Af 42 L, BUN/Creatinine Ratio 31.8 H , Glucose 129 H, Calcium 9.6, Total Bilirubin 1.20 H, AST 18, ALT 20, Alkaline Phosphatase 80, Total Protein 7.2, Albumin 3.9, Globulin 3.3, Albumin/Globulin Ratio 1.2, Lipase 418 H 12/02/20 13:19: Urine Color STRAW, Urine Clarity Clear, Urine pH 6.0, Ur Specific [place] 1.010, Urine Protein Negative, Urine Glucose (UA) Normal, Urine Ketones Negative, Urine Occult Blood 25 H, Urine Nitrite Negative, Urine Bilirubin Negative, Urine Urobilinogen Normal, Ur Leukocyte Esterase 100 H, Urine RBC 0-5 SEEN, Urine WBC REGISTERED 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 Acute partial small bowel obstruction, history of multiple abdominal surgeries Will admit for conservative management General surgery consulted from the ED Keep n.p.o., IV fluids 2. Hypertension, controlled, would hold losartan and spironolactone for now while n.p.o. 3. Asthma/COPD, not in acute exacerbation, continue with as needed breathing treatments 4. CKD stage III, creatinine at baseline, continue IV fluids, repeat blood work in a.m. 5. CAD/chronic CHF stable, will hold aspirin, torsemide, spironolactone and losartan for now 6. DVT PPx- Heparin SC 7. Code status - Full code I discussed and explained in details the various types of CODE STATUS-full code, DNR CCA, DNR CC. Patient chose full code. She stated that she is still young, still has more energy and is very active at home. Time spent discussing CODE STATUS 17 minutes Inpatient E&M: 35613 Init Hosp L2 Procedures: 65015 Advncd Care Plan 30 Min
--- NOTE | 2020-12-02 16:18 | NURSING ---
MED SURG PAINTSIL SBO
[2020-12-02] MEDS: 0.9% Normal Saline 1,000 ML 100 ML IV (17:51)
--- NOTE | 2020-12-02 18:28 | PCM.CONS.GEN ---
Reason for Consult Date of Consultation: 12/02/20 History of Present Illness: The patient is a 79 year old F presents to the ER due to abdominal pain patient states started last night however did improve throughout the night patient did eat this morning but then had increased pain again. Patient CT abdomen pelvis which is consistent with a partial small bowel obstruction. Patient's last bowel obstruction resolved conservatively in September 2019. Before that it was 2 or 3 years. Patient states her last abdominal surgery was about 8 years ago at [facility] due to a ruptured bowel. Previous patient did have multiple other abdominal surgeries. Patient currently denies any nausea or vomiting. Patient did decline a NG tube in the ER. Patient did states she had a bowel movement this morning as well as at 2 PM today. 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 Allergies clarithromycin [From Biaxin] Allergy (Verified 12/02/20 12:36) Fever diazepam [From Valium] Allergy (Verified 12/02/20 12:36) seizures SEIZURES diphenhydramine HCl [From Benadryl] Allergy (Verified 12/02/20 12:36) difficulty breathing esomeprazole magnesium [From Nexium] Allergy (Verified 12/02/20 12:36) chest pain NSAIDS (Non-Steroidal Anti-Inflamma Allergy (Verified 12/02/20 12:36) Other CKD STAGE 4 Penicillins Allergy (Verified 12/02/20 12:36) Rash pentazocine lactate [From Talwin] Allergy (Verified 12/02/20 12:36) quit breathing Sulfa (Sulfonamide Antibiotics) Allergy (Verified 12/02/20 12:36) Rash sulfur dioxide Allergy (Verified 12/02/20 12:36) massive headaches Home Medications: Ambulatory Orders Medication Instructions Recorded Albuterol Inhaler [Ventolin Hfa] 2 puff INHALATION Q4H PRN PRN 03/20/15 Aspirin [Aspirin, Baby] 81 mg PO QHS 03/20/15 Montelukast [Singulair] 10 mg PO QHS 03/20/15 Spironolactone [Aldactone] 25 mg PO BID 03/20/15 Torsemide [Demadex] 10 mg PO DAILY 03/20/15 Budesonide/Formoterol 160/4.5 2 puff INHALATION BID 06/14/19 [Symbicort 160/4.5 Mcg Inhaler (SP)] Omeprazole 40 mg PO DAILY PRN 06/14/19 Dipyridamole 75 mg PO BID 12/02/20 Losartan Potassium [Cozaar] 12.5 - 25 mg PO DAILY 12/02/20 Surgical History: Surgical History (Last Reviewed 07/25/19 @ 11:34 by Amina Tipton) H/O bilateral mastectomy Z90.13 H/O bilateral oophorectomy Z90.722 H/O dilation and curettage Z98.890 History of cholecystectomy Z90.49 History of colon surgery Z98.890 S/P RAFIA (total abdominal hysterectomy) Z90.710 Surgical History: cholecystectomy, hysterectomy, mastectomy, - - Bowel resection. Bowel obstruction Psychiatric History: No pertinent psych hx [employer] History: No pertinent [employer] DES[employer]ER history Lives: Spouse/ Significant Other Smoking Status: Never smoker Tobacco Use: Non-smoker Alcohol: None Drugs: None - *Family History Maternal Family History: Family History (Last Reviewed 07/25/19 @ 11:34 by Amina Tipton) Mother Cancer Thyroid disorder Father Heart disease History Items: No pertinent history Paternal Family History: Family History (Last Reviewed 07/25/19 @ 11:34 by Amina Tipton) Mother Cancer Thyroid disorder Father Heart disease History Items: No pertinent history Review of Systems Constitutional: Reports: Anorexia Eyes: Denies: Blurred vision HEENT: Denies: Difficulty Swallowing Cardiovascular: Denies: Chest Pain Respiratory: Denies: Cough Gastrointestinal: Reports: Abdominal Pain, Nausea. Denies: Diarrhea, Hematochezia, Melena Genitourinary: Denies: Dysuria Neurological: Denies: Confusion Hematologic/ Lymphatic: Denies: Easy Bleeding Patient Problems: Active and Suspected Problems (Last Reviewed 07/25/19 @ 11:34 by Amina Tipton) Partial obstruction of small intestine (Acute) - Physical Exam Vitals/I&O's: Vital Signs Temp Pulse Resp BP Pulse Ox 98.1 F 76 16 117/60 98 12/02/20 16:55 12/02/20 16:55 12/02/20 16:55 12/02/20 16:55 12/02/20 16:55 Oxygen Delivery Method Room Air Weight: 138 lb Body Mass Index (BMI) 26.0 Intake and Output for Last 24 Hours 11/30/20 12/01/20 12/02/20 23:59 23:59 23:59 Intake Total 500 / 500 Balance 500 / 500 General: Alert, Oriented x3, Cooperative, No apparent distress HEENT: Atraumatic Lungs: Normal air movement Cardiovascular: Regular rate Abdomen: Soft, Distended - Mild, Tender - Left lower quadrant, no peritoneal signs Extremities: No clubbing, No cyanosis Neurological: Cranial nerves II-XII grossly intact Psych/Mental Status: Normal Affect Laboratory Results 12/02/20 13:10: WBC 8.8, RBC 4.16 L, Hgb 13.3, Hct 41.6, MCV 100.0 H, MCH 32.0, MCHC 32.0, RDW Std Deviation 52.1 H, RDW Coeff of Yariel 14.1, Plt Count 210, MPV 8.4, Immature Gran % (Auto) 0.200, Neut % (Auto) 88.2 H, Lymph % (Auto) 3.7 L, [place] % (Auto) 7.2, Eos % (Auto) 0.5, Baso % (Auto) 0.2, Absolute Neuts (auto) 7.8 H, Absolute Lymphs (auto) 0.33 L, Nucleated RBC % 0, Differential Comment SCANNED 12/02/20 13:10: Sodium 140, Potassium 4.7, Chloride 108 H, Carbon Dioxide 28.0, Anion Gap 4 L, BUN 41 H, Creatinine 1.29 H, Estim Creat Clear Calc 25.81, Est GFR (MDRD) Af Amer 51 L, Est GFR (MDRD) Non-Af 42 L, BUN/Creatinine Ratio 31.8 H, Glucose 129 H, Calcium 9.6, Total Bilirubin 1.20 H, AST 18, ALT 20, Alkaline Phosphatase 80, Total Protein 7.2, Albumin 3.9, Globulin 3.3, Albumin/Globulin Ratio 1.2, Lipase 418 H 12/02/20 13:19: Urine Color STRAW, Urine Clarity Clear, Urine pH 6.0, Ur Specific [place] 1.010, Urine Protein Negative, Urine Glucose (UA) Normal, Urine Ketones Negative, Urine Occult Blood 25 H, Urine Nitrite Negative, Urine Bilirubin Negative, Urine Urobilinogen Normal, Ur Leukocyte Esterase 100 H, Urine RBC 0-5 SEEN, 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 OFFICER, Ur Squamous Epith Cells 0-5 SEEN, Ur Transition Epith Cell 0 SEEN, Urine Bacteria 0 SEEN, Urine Mucus 0 SEEN Current Medications Acetaminophen (Acetaminophen 325 Mg Tablet) 650 mg PO Q6H PRN PRN PRN Reason: Pain Score 1-10/Temp > 100.7 F Al Hydroxide/Mg Hydroxide (Mag Hydrox/Al Hydrox/Simeth 30 Ml Udc) 30 ml PO Q6H PRN PRN PRN Reason: Gastric Burning Albuterol Sulfate (Albuterol 2.5 Mg/3 Ml Vial.Neb.) 2.5 mg INHALATION Q6HWA.RT JENNIFER Budesonide (Budesonide Respules 0.5 Mg/2 Ml Ampul.Neb.) 0.5 mg INHALATION Q12H.RT JENN[facility]ER Heparin Sodium (Porcine) (Heparin Injection (Vial) 5,000 Unit/Ml Vial) 5,000 unit SC Q8 [facility]ENN[facility] Hydralazine HCl (Hydralazine 20 Mg/Ml Vial) 5 mg IV Q6H PRN PRN PRN Reason: BLOOD PRESSURE Sodium Chloride () 1,000 mls @ 100 mls/hr IV .Q10H [facility] Last Admin: 12/02/20 17:51 Dose: 100 mls/hr Documented by: Montelukast Sodium (Montelukast 10 Mg Tablet) 10 mg PO QHS JENNIFER Morphine Sulfate (Morphine 2 Mg/Ml Syringe) 2 mg IV Q3H PRN PRN PRN Reason: Pain Score 6-10 Ondansetron HCl (Ondansetron 4 Mg/2 Ml Vial) 4 mg IV Q8H PRN PRN PRN Reason: NAUSEA/VOMITING Sodium Chloride (0.9% Saline Lock 10 Ml Syringe) 10 - 40 ml IV UD PRN PRN Reason: SALINE FLUSH Assessment/Plan All Active Problems (Last Reviewed 11/07/19 @ 11:34 by Amina Tipton) Dehiscence of surgical wound (Acute) Nonhealing nonsurgical wound limited to breakdown of skin (Acute) Infected wound (Acute) Thrush, oral (Acute) Partial obstruction of small intestine (Acute) 79-year-old female with partial small bowel obstruction. 1. N.p.o. except for meds, IV fluids. We will plan for small bowel follow-through with Gastrografin in a.m. Patient is agreeable with plan. Ruchi David M.D. Pager: [phone] [facility] [address] [place] [address], [facility], [address] [place] [address] Office: [phone] Inpatient E&M: 26991 Init Hosp L3
[2020-12-02] MEDS: Budesonide Respules 0.5 MG/2 ML AMPUL.NEB. INHALATION (19:17)
[2020-12-02] MEDS: Albuterol 2.5 MG/3 ML VIAL.NEB. INHALATION (19:17)
--- NOTE | 2020-12-02 20:08 | EKG12_ITS ---
Test Reason : DYSRHYTHMIA Blood Pressure : / mmHG Vent. Rate : 080 BPM Atrial Rate : 080 BPM P-R Int : 174 ms QRS Dur : 074 ms QT Int : 396 ms P-R-T Axes : 062 -42 022 degrees QTc Int : 456 ms Normal sinus rhythm Left axis deviation Low voltage QRS Abnormal ECG Confirmed by MARYLOU HSIEH, BEULAH ([id number]), editor & co founder ROB FUENTES ([id number]) on 12/04/2020 9:21:58 AM Referred By: GABY Confirmed By:BEULAH HICKMAN MD
[2020-12-02] MEDS: Heparin Injection (Vial) 5,000 UNIT/ML VIAL 5000 UNIT SC (21:06)
[2020-12-02] MEDS: Montelukast 10 MG Tablet PO (21:06)
[2020-12-03] MEDS: 0.9% Normal Saline 1,000 ML 100 ML IV ×2 (04:15→15:21)
[2020-12-03 05:00] VITALS: BP 115/55; PULSE 60; RESP 16; TEMP 36.8; O2SAT 97
[2020-12-03 05:04] LABS: Absolute Lymphocyte Count 0.66 X10^3/uL (0.83-4.51); Absolute Neutrophil Count 3.1 X10^3/uL (2.0-7.7); Basophil# 0.01 X10^3/uL; Basophil% 0.2 % (0-1); Eosinophil# 0.03 X10^3/uL; Eosinophils% 0.7 % (0-5); Hematocrit 32.2 % (37-47); Hemoglobin 10.1 g/dL (12.0-15.0); Lymphocyte # 0.66 X10^3/ul (4.0); Mean Corp Hgb Conc 31.4 g/dL (32-36); Mean Corpuscular Hgb 31.9 pg (27.0-32.0); Mean Corpuscular Volume 101.6 fL (81-99); Mean Platelet Vol. 8.6 fl (6.2-12.0); Monocyte# 0.35 X10^3/uL; Monocyte% 8.5 % (0-10); NRBC Flagged by Analyzer 0 % (0-5); Neutrophil # 3.06 X10^3/uL (2.7-7.7); Neutrophil % 74.4 % (47-70); Platelet Count 162 K/mm3 (150-450); RBC Distribution Width CV 14.2 % (11.6-14.6); RBC Distribution Width SD 53.7 fl (35.1-43.9); Red Blood Count 3.17 M/mm3 (4.2-5.4); White Blood Count 4.1 K/mm3 (4.4-11.0)
[2020-12-03 05:34] LABS: ALB/GLOB Ratio 1.1 RATIO (0.9-2.4); AST(SGOT) 16 U/L (15-37); Alanine Aminotransfer ALT/SGPT 15 U/L (13-56); Albumin, Serum 2.9 g/dL (3.2-5.0); Alkaline Phosphatase 61 U/L (45-117); Anion Gap 7 (5-15); BUN 29 mg/dL (7-18); BUN/Creat Ratio 26.1 RATIO (10-20); Calcium,Total 8.2 mg/dL (8.5-10.1); Chloride 115 mmol/L (98-107); Creatinine, Serum 1.11 mg/dL (0.55-1.02); EST Glomerular Filtration Rate 50 mL/min (>60); Est Glom Filt Rate - Afr Amer 61 mL/min (>60); Estimated Creatinine Clearance 29.99 ml/min; Globulin 2.6 g/dL (2.2-4.2); Glucose 84 mg/dL (74-106); Potassium 4.2 mmol/L (3.5-5.1); Protein, Total 5.5 g/dL (6.4-8.2); Sodium Level 146 mmol/L (136-145)
[2020-12-03 07:15] VITALS: PULSE 70; RESP 16
[2020-12-03] MEDS: Budesonide Respules 0.5 MG/2 ML AMPUL.NEB. INHALATION (07:15)
--- NOTE | 2020-12-03 08:00 | RAD_ITS ---
CLINICAL HISTORY: Female, 79 years old. Possible small bowel obstruction. PROCEDURE: GASTROGRAFIN small bowel follow-through examination. FLUOROSCOPY TIME (if supplied): (30 seconds.) minutes/seconds. 6 images were obtained. TECHNIQUE: (All elements of maximal sterile barrier technique followed, including US elements as applicable) A weed cutter film was obtained. Following this, the patient ingested GASTROGRAFIN. A small bowel follow-through examination was then performed. Nonspecific bowel gas pattern visualized on the weed cutter film. Degenerative changes of the lumbar spine with mild levoscoliosis. The patient ingested GASTROGRAFIN. A small bowel examination was then performed. There is no evidence of bowel obstruction. Contrast is seen within the right hemicolon after 30 minutes of ingestion. RAD/Small Bowel Series Only IMPRESSION: No evidence of a small bowel obstruction. Electronically Signed: Clif Peraza MD at 10:32 EDT , Service support ,
[2020-12-03] MEDS: 0.9% Saline Lock 10 ML Syringe IV (10:07)
[2020-12-03] MEDS: Ondansetron 4 MG/2 ML Vial IV (10:07)
--- NOTE | 2020-12-03 10:40 | CASEMGMT ---
BRADEN CHEUNG assessment: Face to Face with patient for initial transition planning/care coordination assessment. BRADEN CHEUNG introduced self and role at [facility], pt voices understanding and consent to assessment. Pt is sitting up in bed in no distress. Pt is A/Ox4 and answers all questions appropriately. Care providers, pharmacy, and demographics verified. Presentation: 'I have a bowel blockage again', abd pain, n/v Admitting dx: SBO PCP: [facility] Specialists: Del[place], cardio in [place]; gout physician Preferred Pharmacy: [facility] Insurance: [employer] Prescription Benefit: [employer] Living Will/HPOA: Pt states has LW/HPOA and is aware that they are not on file at [facility]. Pt states her , Russell Calvert, is HPOA. LNOK: Russell Calvert, ; Judith Valle, daughter Living Arrangements: Pt states lives with in 1 story home and states no concerns at home. Pt states is independent with ADL's. Transportation: Pt states drives self and states no transportation concerns. DME/HHC: Pt states has a nebulizer and grab bars and states no need for any further DME. Pt states no hx of HHC or SNF in the past. Pt states no concerns with going home at time of discharge. Pt is retired. Pt states does not smoke cigarettes or drink ETOH. Pt voices no further concerns/needs. CM to follow for any further discharge planning/needs. Advised pt to ask for CM if any further questions/concerns/needs arise, voices understanding. Pt Goal: Home Plan[place] BRADEN CHEUNG
--- NOTE | 2020-12-03 10:40 | PCM.PN.SRG ---
Patient Problems: Active and Suspected Problems (Last Reviewed 07/25/19 @ 11:34 by Amina Tipton) Partial obstruction of small intestine (Acute) Subjective: Patient small bowel follow-through did go to: 30 minutes. No evidence of obstruction - Physical Exam Vitals/I&O's: Vital Signs Temp Pulse Resp BP Pulse Ox 98.3 F 70 16 115/55 L 97 12/03/20 05:00 12/03/20 07:15 12/03/20 07:15 12/03/20 05:00 12/03/20 05:00 Oxygen Delivery Method Room Air Weight: 135 lb 9.349 oz Body Mass Index (BMI) 26.0 Intake and Output for Last 24 Hours 12/01/20 12/02/20 12/03/20 23:59 23:59 23:59 Intake Total 998.33 / 998.33 661.67 / 661.67 Balance 998.33 / 998.33 661.67 / 661.67 General: Alert, Oriented x3, Cooperative, No apparent distress HEENT: Atraumatic Lungs: Normal air movement Cardiovascular: Regular rate Abdomen: Soft, Non Tender, Non-Distended Laboratory Results 12/02/20 13:10: WBC 8.8, RBC 4.16 L, Hgb 13.3, Hct 41.6, MCV 100.0 H, MCH 32.0, MCHC 32.0, RDW Std Deviation 52.1 H, RDW Coeff of Yariel 14.1, Plt Count 210, MPV 8.4, Immature Gran % (Auto) 0.200, Neut % (Auto) 88.2 H, Lymph % (Auto) 3.7 L, [place] % (Auto) 7.2, Eos % (Auto) 0.5, Baso % (Auto) 0.2, Absolute Neuts (auto) 7.8 H, Absolute Lymphs (auto) 0.33 L, Nucleated RBC % 0, Differential Comment SCANNED 12/02/20 13:10: Sodium 140, Potassium 4.7, Chloride 108 H, Carbon Dioxide 28.0, Anion Gap 4 L, BUN 41 H, Creatinine 1.29 H, Estim Creat Clear Calc 25.81, Est GFR (MDRD) Af Amer 51 L, Est GFR (MDRD) Non-Af 42 L, BUN/Creatinine Ratio 31.8 H, Glucose 129 H, Calcium 9.6, Total Bilirubin 1.20 H, AST 18, ALT 20, Alkaline Phosphatase 80, Total Protein 7.2, Albumin 3.9, Globulin 3.3, Albumin/Globulin Ratio 1.2, Lipase 418 H 12/02/20 13:19: Urine Color STRAW, Urine Clarity Clear, Urine pH 6.0, Ur Specific [place] 1.010, Urine Protein Negative, Urine Glucose (UA) Normal, Urine Ketones Negative, Urine Occult Blood 25 H, Urine Nitrite Negative, Urine Bilirubin Negative, Urine Urobilinogen Normal, Ur Leukocyte Esterase 100 H, Urine RBC 0-5 SEEN, Urine WBC JEEP MECHANIC, Ur Squamous Epith Cells 0-5 SEEN, Ur Transition Epith Cell 0 SEEN, Urine Bacteria 0 SEEN, Urine Mucus 0 SEEN 12/03/20 04:50: WBC 4.1 L, RBC 3.17 L, Hgb 10.1 L, Hct 32.2 L, MCV 101.6 H, MCH 31.9, MCHC 31.4 L, RDW Std Deviation 53.7 H, RDW Coeff of Yariel 14.2, Plt Count 162, MPV 8.6, Immature Gran % (Auto) 0.200, Neut % (Auto) 74.4 H, Lymph % (Auto) 16.0 L, [place] % (Auto) 8.5, Eos % (Auto) 0.7, Baso % (Auto) 0.2, Absolute Neuts (auto) 3.1, Absolute Lymphs (auto) 0.66 L, Nucleated RBC % 0 12/03/20 04:50: Sodium 146 H, Potassium 4.2, Chloride 115 H, Carbon Dioxide 24.0, Anion Gap 7, BUN 29 H, Creatinine 1.11 H, Estim Creat Clear Calc 29.99, Est GFR (MDRD) Af Amer 61, Est GFR (MDRD) Non-Af 50 L, BUN/Creatinine Ratio 26.1 H, Glucose 84, Calcium 8.2 L, Total Bilirubin 1.30 H, AST 16, ALT 15, Alkaline Phosphatase 61, Total Protein 5.5 L, Albumin 2.9 L, Globulin 2.6, Albumin/Globulin Ratio 1.1 Current Medications Acetaminophen (Acetaminophen 325 Mg Tablet) 650 mg PO Q6H PRN PRN PRN Reason: Pain Score 1-10/Temp > 100.7 F Al Hydroxide/Mg Hydroxide (Mag Hydrox/Al Hydrox/Simeth 30 Ml Udc) 30 ml PO Q6H PRN PRN PRN Reason: Gastric Burning Albuterol Sulfate (Albuterol 2.5 Mg/3 Ml Vial.Neb.) 2.5 mg INHALATION Q2H PRN PRN PRN Reason: SOB &/OR WHEEZING Budesonide (Budesonide Respules 0.5 Mg/2 Ml Ampul.Neb.) 0.5 mg INHALATION Q12H.RT [facility] Last Admin: 12/03/20 07:15 Dose: 0.5 mg Documented by: Heparin Sodium (Porcine) (Heparin Injection (Vial) 5,000 Unit/Ml Vial) 5,000 unit SC Q8 [facility] Last Admin: 12/03/20 07:39 Dose: Not Given Documented by: Hydralazine HCl (Hydralazine 20 Mg/Ml Vial) 5 mg IV Q6H PRN PRN PRN Reason: BLOOD PRESSURE Sodium Chloride () 1,000 mls @ 100 mls/hr IV .Q10H [facility] Last Admin: 12/03/20 04:15 Dose: 100 mls/hr Documented by: Pantoprazole Sodium 40 mg/ (Sodium Chloride) 110 mls @ 330 mls/hr IV Q24 [facility] Last Admin: 12/03/20 10:05 Dose: 330 mls/hr Documented by: Montelukast Sodium (Montelukast 10 Mg Tablet) 10 mg PO QHS [facility] Last Admin: 12/02/20 21:06 Dose: 10 mg Documented by: Morphine Sulfate (Morphine 2 Mg/Ml Syringe) 2 mg IV Q3H PRN PRN PRN Reason: Pain Score 6-10 Ondansetron HCl (Ondansetron 4 Mg/2 Ml Vial) 4 mg IV Q8H PRN PRN PRN Reason: NAUSEA/VOMITING Last Admin: 12/03/20 10:07 Dose: 4 mg Documented by: Sodium Chloride (0.9% Saline Lock 10 Ml Syringe) 10 - 40 ml IV UD PRN PRN Reason: SALINE FLUSH Last Admin: 12/03/20 10:07 Dose: 10 ml Documented by: Medical Necessity - Tobacco Use Smoking Status: Never smoker Tobacco Use: Non-smoker Assessment/Plan All Active Problems (Last Reviewed 07/25/19 @ 11:34 by Amina L Danuta) Dehiscence of surgical wound (Acute) Nonhealing nonsurgical wound limited to breakdown of skin (Acute) Infected wound (Acute) Thrush, oral (Acute) Partial obstruction of small intestine (Acute) 79-year-old female with partial small bowel obstruction?Resolved. 1. Small bowel follow-through did not show any evidence of small bowel obstruction. Okay for clears if tolerates okay for regular diet and if tolerates okay to DC Ruchi David M.D. Pager: [phone] [facility] [address] [place] [address], [address] [place] [address] Office: [phone] Inpatient E&M: [id number] Subs Hosp L2
[2020-12-03 10:57] VITALS: BP 135/54; PULSE 68; RESP 14; TEMP 36.8; O2SAT 99
[2020-12-03 10:59] VITALS: O2SAT 99
--- NOTE | 2020-12-03 11:19 | PN_ITS ---
Patient Problems: Active and Suspected Problems (Last Reviewed 07/25/19 @ 11:34 by Amina Tipton) Partial obstruction of small intestine (Acute) Subjective: Feels much better today. This was her 4th SBO. Vitals/I&O's: Vital Signs Temp Pulse Resp BP Pulse Ox 36.8 C 68 14 135/54 H 99 12/03/20 10:57 12/03/20 10:57 12/03/20 10:57 12/03/20 10:57 12/03/20 10:59 Oxygen Delivery Method Room Air Weight: 61.5 kg Body Mass Index (BMI) 26.0 Intake and Output for Last 24 Hours 12/01/20 12/02/20 12/03/20 23:59 23:59 23:59 Intake Total 998.33 / 998.33 771.67 / 771.67 Balance 998.33 / 998.33 771.67 / 771.67 General: Alert, No apparent distress HEENT: Atraumatic, Normocephalic Oral: Moist Mucosa, No Gingival or Mucosal Lesions/ Ulcerations Neck: No Nodes, Thyroid Normal Size and Texture Lungs: Clear to auscultation, Normal air movement, No rhonchi, No wheeze, No rales Cardiovascular: Regular rate, Regular Rhythm, Normal S1, Normal S2, No murmurs Abdomen: Bowel Sounds Present, Soft, Non Tender, Non-Distended, No Hepato- splenomegaly Extremities: No edema, No Calf Tenderness Psych/Mental Status: Normal Affect, Appropriate Laboratory Results 12/02/20 13:10: WBC 8.8, RBC 4.16 L, Hgb 13.3, Hct 41.6, MCV 100.0 H, MCH 32.0, MCHC 32.0, RDW Std Deviation 52.1 H, RDW Coeff of Yariel 14.1, Plt Count 210, MPV 8.4, Immature Gran % (Auto) 0.200, Neut % (Auto) 88.2 H, Lymph % (Auto) 3.7 L, [place] % (Auto) 7.2, Eos % (Auto) 0.5, Baso % (Auto) 0.2, Absolute Neuts (auto) 7.8 H, Absolute Lymphs (auto) 0.33 L, Nucleated RBC % 0, Differential Comment SCANNED 12/02/20 13:10: Sodium 140, Potassium 4.7, Chloride 108 H, Carbon Dioxide 28.0, Anion Gap 4 L, BUN 41 H, Creatinine 1.29 H, Estim Creat Clear Calc 25.81, Est GFR (MDRD) Af Amer 51 L, Est GFR (MDRD) Non-Af 42 L, BUN/Creatinine Ratio 31.8 H , Glucose 129 H, Calcium 9.6, Total Bilirubin 1.20 H, AST 18, ALT 20, Alkaline Phosphatase 80, Total Protein 7.2, Albumin 3.9, Globulin 3.3, Albumin/Globulin Ratio 1.2, Lipase 418 H 12/02/20 13:19: Urine Color STRAW, Urine Clarity Clear, Urine pH 6.0, Ur Specific [place] 1.010, Urine Protein Negative, Urine Glucose (UA) Normal, Urine Ketones Negative, Urine Occult Blood 25 H, Urine Nitrite Negative, Urine Bilirubin Negative, Urine Urobilinogen Normal, Ur Leukocyte Esterase 100 H, Urine RBC 0-5 SEEN, Urine WBC BARKEEP, Ur Squamous Epith Cells 0-5 SEEN, Ur Transition Epith Cell 0 SEEN, Urine Bacteria 0 SEEN, Urine Mucus 0 SEEN 12/03/20 04:50: WBC 4.1 L, RBC 3.17 L, Hgb 10.1 L, Hct 32.2 L, MCV 101.6 H, MCH 31.9, MCHC 31.4 L, RDW Std Deviation 53.7 H, RDW Coeff of Yariel 14.2, Plt Count 162, MPV 8.6, Immature Gran % (Auto) 0.200, Neut % (Auto) 74.4 H, Lymph % (Auto) 16.0 L, [place] % (Auto) 8.5, Eos % (Auto) 0.7, Baso % (Auto) 0.2, Absolute Neuts (auto) 3.1, Absolute Lymphs (auto) 0.66 L, Nucleated RBC % 0 12/03/20 04:50: Sodium 146 H, Potassium 4.2, Chloride 115 H, Carbon Dioxide 24.0, Anion Gap 7, BUN 29 H, Creatinine 1.11 H, Estim Creat Clear Calc 29.99, Est GFR (MDRD) Af Amer 61, Est GFR (MDRD) Non-Af 50 L, BUN/Creatinine Ratio 26.1 H, Glucose 84, Calcium 8.2 L, Total Bilirubin 1.30 H, AST 16, ALT 15, Alkaline Phosphatase 61, Total Protein 5.5 L, Albumin 2.9 L, Globulin 2.6, Albumin/Globulin Ratio 1.1 Current Medications Acetaminophen (Acetaminophen 325 Mg Tablet) 650 mg PO Q6H PRN PRN PRN Reason: Pain Score 1-10/Temp > 100.7 F Al Hydroxide/Mg Hydroxide (Mag Hydrox/Al Hydrox/Simeth 30 Ml Udc) 30 ml PO Q6H PRN PRN PRN Reason: Gastric Burning Albuterol Sulfate (Albuterol 2.5 Mg/3 Ml Vial.Neb.) 2.5 mg INHALATION Q2H PRN PRN PRN Reason: SOB &/OR WHEEZING Budesonide (Budesonide Respules 0.5 Mg/2 Ml Ampul.Neb.) 0.5 mg INHALATION Q12H.RT [facility] Last Admin: 12/03/20 07:15 Dose: 0.5 mg Documented by: Heparin Sodium (Porcine) (Heparin Injection (Vial) 5,000 Unit/Ml Vial) 5,000 unit SC Q8 [facility] Last Admin: 12/03/20 07:39 Dose: Not Given Documented by: Hydralazine HCl (Hydralazine 20 Mg/Ml Vial) 5 mg IV Q6H PRN PRN PRN Reason: BLOOD PRESSURE Sodium Chloride () 1,000 mls @ 100 mls/hr IV .Q10H [facility] Last Admin: 12/03/20 04:15 Dose: 100 mls/hr Documented by: Pantoprazole Sodium 40 mg/ (Sodium Chloride) 110 mls @ 330 mls/hr IV Q24 [facility] Last Infusion: 12/03/20 10:41 Dose: Infused Documented by: Montelukast Sodium (Montelukast 10 Mg Tablet) 10 mg PO QHS [facility] Last Admin: 12/02/20 21:06 Dose: 10 mg Documented by: Morphine Sulfate (Morphine 2 Mg/Ml Syringe) 2 mg IV Q3H PRN PRN PRN Reason: Pain Score 6-10 Ondansetron HCl (Ondansetron 4 Mg/2 Ml Vial) 4 mg IV Q8H PRN PRN PRN Reason: NAUSEA/VOMITING Last Admin: 12/03/20 10:07 Dose: 4 mg Documented by: Sodium Chloride (0.9% Saline Lock 10 Ml Syringe) 10 - 40 ml IV UD PRN PRN Reason: SALINE FLUSH Last Admin: 12/03/20 10:07 Dose: 10 ml Documented by: STROKE Vital Signs/Narrative: Vital Signs Temp Pulse Resp BP Pulse Ox 12/03/20 10:59 99 12/03/20 10:57 36.8 C 68 14 135/54 H 99 Medical Necessity - Tobacco Use Smoking Status: Never smoker Tobacco Use: Non-smoker Assessment/Plan All Active Problems (Last Reviewed 07/25/19 @ 11:34 by Amina Tipton) Partial obstruction of small intestine (Acute) 1. Partial small bowel obstruction Reviewed the patient's prior abdominal surgeries with adhesions. Symptoms have resolved and small bowel follow-through was negative for any bowel obstruction. Plan: Discussed with Dr. David flatus for clear diet and if tolerates and regular diet and if tolerates that go home. Patient advised that this can recur again which she is unfortunately too familiar with. Explained that she does have recurrence if it does not resolve spontaneously she may require lysis of adhesions in the future. 2. CKD 3A Creatinine stable. No need for renal replacement therapy. Disposition pending patient's response to diet. Inpatient E&M: 30329 Subs Hosp L2
--- NOTE | 2020-12-03 11:24 | DCINST_ITS ---
- Discharge Diagnoses Current Active Problems: Current Active and Chronic Problems (Last Reviewed 07/25/19 @ 11:34 by Amina Tipton) GERD (gastroesophageal reflux disease) (Chronic) Asthma (Chronic) CAD (coronary artery disease) (Chronic) Congestive heart failure (Chronic) Hypertension (Chronic) Partial obstruction of small intestine (Acute) You will use the following diet at home:: No restrictions Call your doctor if you observe: - - worsening abdominal pain. intractable nausea and vomiting. Allergies/Adverse Reactions: Allergies clarithromycin [From Biaxin] Allergy (Verified 12/02/20 12:36) Fever diazepam [From Valium] Allergy (Verified 12/02/20 12:36) seizures SEIZURES diphenhydramine HCl [From Benadryl] Allergy (Verified 12/02/20 12:36) difficulty breathing esomeprazole magnesium [From Nexium] Allergy (Verified 12/02/20 12:36) chest pain NSAIDS (Non-Steroidal Anti-Inflamma Allergy (Verified 12/02/20 12:36) Other CKD STAGE 4 Penicillins Allergy (Verified 12/02/20 12:36) Rash pentazocine lactate [From Talwin] Allergy (Verified 12/02/20 12:36) quit breathing Sulfa (Sulfonamide Antibiotics) Allergy (Verified 12/02/20 12:36) Rash sulfur dioxide Allergy (Verified 12/02/20 12:36) massive headaches Medications to take at Discharge Albuterol Inhaler [Ventolin Hfa] 2 puff INHALATION Q4H PRN PRN 03/20/15 Aspirin [Aspirin, Baby] 81 mg PO QHS 03/20/15 Montelukast [Singulair] 10 mg PO QHS 03/20/15 Spironolactone [Aldactone] 25 mg PO BID 03/20/15 Torsemide [Demadex] 10 mg PO DAILY 03/20/15 Budesonide/Formoterol 160/4.5 [Symbicort 160/4.5 Mcg Inhaler (SP)] 2 puff INHALATION BID 06/14/19 Omeprazole 40 mg PO DAILY PRN 06/14/19 Dipyridamole 75 mg PO BID 12/02/20 Losartan Potassium [Cozaar] 12.5 - 25 mg PO DAILY 12/02/20 Ondansetron [Zofran] 8 mg PO Q8H PRN PRN #15 tablet 12/03/20 The following prescriptions were given: Ondansetron [Zofran] 8 mg PO Q8H PRN PRN #15 tablet PRN Reason: nausea vomiting Transmission Status: Pending to [id number] Primary Care Physician: Julius Sandoval MD [Primary Care Provider] - Within 2 Weeks Test Results: Test results from this visit will be discussed in further detail at your follow- up appointment, if applicable. Please Follow Up With: Radha Storm MD When: 01/07/2021, already scheduled Proposed Discharge Date: 12/03/20
--- NOTE | 2020-12-03 11:27 | DS.PCM_ITS ---
Discharge Date and Diagnosis - Problem List Patient Problems: Active and Suspected Problems (Last Reviewed 07/25/19 @ 11:34 by Amina Tipton) Partial obstruction of small intestine (Acute) Date of Admission: 12/02/20 Date of Discharge: 12/03/20 - Primary Discharge Diagnosis Acute Problems: Active Problems (Last Reviewed 07/25/19 @ 11:34 by Amina Tipton) Partial obstruction of small intestine (Acute) - Secondary Discharge Diagnosis Chronic Problems: Chronic Problems (Last Reviewed 07/25/19 @ 11:34 by Amina Tipton) Stage III chronic kidney disease (Chronic) GERD (gastroesophageal reflux disease) (Chronic) Asthma (Chronic) CAD (coronary artery disease) (Chronic) Congestive heart failure (Chronic) Hypertension (Chronic) Hospital Course and Treatment Imaging Results: 12/03/20 08:00 Small Bowel Series Only [RAD] Timed Clinical Impression(s) from Imaging Studies Abdomen/Pelvis CT 12/02/20 12:53 IMPRESSION: The findings suggest left early small bowel obstruction. Follow-up is recommended. Status post cholecystectomy and mild degree of dilated intrahepatic biliary ducts. Small left renal cyst. Electronically Signed: Clif Peraza MD at 14:20 EDT , Service support , Small Bowel X-Ray 12/03/20 08:00 IMPRESSION: No evidence of a small bowel obstruction. Electronically Signed: Clif Peraza MD at 10:32 EDT , Service support , [facility] Operations: None Procedures: None Summary of Care Provided: The patient is a 79 year old F presents with 2 days of abdominal pain. Patient had a CAT scan that showed partial small bowel obstruction. Patient was admitted and monitor. No NG tube was necessary. Today, patient was feeling better and had a small bowel follow-through that was normal. Patient's diet would be advanced to clears and then subsequently to regular diet and if she tolerates that she will be discharged home. Is likely due to the patient's history of abdominal surgeries and adhesions. Patient made aware of this she has had 3 prior small bowel obstructions. Patient informed that she may potenti ally require surgery in the future if it becomes refractory to conservative management. [] Patient Problems: Active and Suspected Problems (Last Reviewed 07/25/19 @ 11:34 by Amina Tipton) Partial obstruction of small intestine (Acute) - Physical Exam Vitals/I&O's: Vital Signs Temp Pulse Resp BP Pulse Ox 36.8 C 68 14 135/54 H 99 12/03/20 10:57 12/03/20 10:57 12/03/20 10:57 12/03/20 10:57 12/03/20 10:59 Oxygen Delivery Method Room Air Weight: 61.5 kg Body Mass Index (BMI) 26.0 Intake and Output for Last 24 Hours 12/01/20 12/02/20 12/03/20 23:59 23:59 23:59 Intake Total 998.33 / 998.33 771.67 / 771.67 Balance 998.33 / 998.33 771.67 / 771.67 Laboratory Results 12/02/20 13:10: WBC 8.8, RBC 4.16 L, Hgb 13.3, Hct 41.6, MCV 100.0 H, MCH 32.0, MCHC 32.0, RDW Std Deviation 52.1 H, RDW Coeff of Yariel 14.1, Plt Count 210, MPV 8.4, Immature Gran % (Auto) 0.200, Neut % (Auto) 88.2 H, Lymph % (Auto) 3.7 L, [place] % (Auto) 7.2, Eos % (Auto) 0.5, Baso % (Auto) 0.2, Absolute Neuts (auto) 7.8 H, Absolute Lymphs (auto) 0.33 L, Nucleated RBC % 0, Differential Comment SCANNED 12/02/20 13:10: Sodium 140, Potassium 4.7, Chloride 108 H, Carbon Dioxide 28.0, Anion Gap 4 L, BUN 41 H, Creatinine 1.29 H, Estim Creat Clear Calc 25.81, Est GFR (MDRD) Af Amer 51 L, Est GFR (MDRD) Non-Af 42 L, BUN/Creatinine Ratio 31.8 H , Glucose 129 H, Calcium 9.6, Total Bilirubin 1.20 H, AST 18, ALT 20, Alkaline Phosphatase 80, Total Protein 7.2, Albumin 3.9, Globulin 3.3, Albumin/Globulin Ratio 1.2, Lipase 418 H 12/02/20 13:19: Urine Color STRAW, Urine Clarity Clear, Urine pH 6.0, Ur Specific [place] 1.010, Urine Protein Negative, Urine Glucose (UA) Normal, Urine Ketones Negative, Urine Occult Blood 25 H, Urine Nitrite Negative, Urine Bilirubin Negative, Urine Urobilinogen Normal, Ur Leukocyte Esterase 100 H, Urine RBC 0-5 SEEN, Urine WBC FRAME CLEANER, Ur Squamous Epith Cells 0-5 SEEN, Ur Transition Epith Cell 0 SEEN, Urine Bacteria 0 SEEN, Urine Mucus 0 SEEN 12/03/20 04:50: WBC 4.1 L, RBC 3.17 L, Hgb 10.1 L, Hct 32.2 L, MCV 101.6 H, MCH 31.9, MCHC 31.4 L, RDW Std Deviation 53.7 H, RDW Coeff of Yariel 14.2, Plt Count 162, MPV 8.6, Immature Gran % (Auto) 0.200, Neut % (Auto) 74.4 H, Lymph % (Auto) 16.0 L, [place] % (Auto) 8.5, Eos % (Auto) 0.7, Baso % (Auto) 0.2, Absolute Neuts (auto) 3.1, Absolute Lymphs (auto) 0.66 L, Nucleated RBC % 0 12/03/20 04:50: Sodium 146 H, Potassium 4.2, Chloride 115 H, Carbon Dioxide 24.0, Anion Gap 7, BUN 29 H, Creatinine 1.11 H, Estim Creat Clear Calc 29.99, Est GFR (MDRD) Af Amer 61, Est GFR (MDRD) Non-Af 50 L, BUN/Creatinine Ratio 26.1 H, Glucose 84, Calcium 8.2 L, Total Bilirubin 1.30 H, AST 16, ALT 15, Alkaline Phosphatase 61, Total Protein 5.5 L, Albumin 2.9 L, Globulin 2.6, Albumin/Globulin Ratio 1.1 Current Medications Acetaminophen (Acetaminophen 325 Mg Tablet) 650 mg PO Q6H PRN PRN PRN Reason: Pain Score 1-10/Temp > 100.7 F Al Hydroxide/Mg Hydroxide (Mag Hydrox/Al Hydrox/Simeth 30 Ml Udc) 30 ml PO Q6H PRN PRN PRN Reason: Gastric Burning Albuterol Sulfate (Albuterol 2.5 Mg/3 Ml Vial.Neb.) 2.5 mg INHALATION Q2H PRN PRN PRN Reason: SOB &/OR WHEEZING Budesonide (Budesonide Respules 0.5 Mg/2 Ml Ampul.Neb.) 0.5 mg INHALATION Q12H.RT FOR[facility]LY [facility], 1928–1983 Last Admin: 12/03/20 07:15 Dose: 0.5 mg Documented by: Heparin Sodium (Porcine) (Heparin Injection (Vial) 5,000 Unit/Ml Vial) 5,000 unit SC Q8 [facility], [facility]1983 Last Admin: 12/03/20 07:39 Dose: Not Given Documented by: Hydralazine HCl (Hydralazine 20 Mg/Ml Vial) 5 mg IV Q6H PRN PRN PRN Reason: BLOOD PRESSURE Sodium Chloride () 1,000 mls @ 100 mls/hr IV .Q10H [facility], [facility]1983 Last Admin: 12/03/20 04:15 Dose: 100 mls/hr Documented by: Pantoprazole Sodium 40 mg/ (Sodium Chloride) 110 mls @ 330 mls/hr IV Q24 [facility], [facility]1983 Last Infusion: 12/03/20 10:41 Dose: Infused Documented by: Montelukast Sodium (Montelukast 10 Mg Tablet) 10 mg PO QHS [facility], [facility] Last Admin: 12/02/20 21:06 Dose: 10 mg Documented by: Morphine Sulfate (Morphine 2 Mg/Ml Syringe) 2 mg IV Q3H PRN PRN PRN Reason: Pain Score 6-10 Ondansetron HCl (Ondansetron 4 Mg/2 Ml Vial) 4 mg IV Q8H PRN PRN PRN Reason: NAUSEA/VOMITING Last Admin: 12/03/20 10:07 Dose: 4 mg Documented by: Sodium Chloride (0.9% Saline Lock 10 Ml Syringe) 10 - 40 ml IV UD PRN PRN Reason: SALINE FLUSH Last Admin: 12/03/20 10:07 Dose: 10 ml Documented by: Discharge Diet: No Restrictions Call your doctor if you observe: - - worsening abdominal pain. intractable nausea and vomiting. Home Medications: Medications to take at Discharge Albuterol Inhaler [Ventolin Hfa] 2 puff INHALATION Q4H PRN PRN 03/20/15 Aspirin [Aspirin, Baby] 81 mg PO QHS 03/20/15 Montelukast [Singulair] 10 mg PO QHS 03/20/15 Spironolactone [Aldactone] 25 mg PO BID 03/20/15 Torsemide [Demadex] 10 mg PO DAILY 03/20/15 Budesonide/Formoterol 160/4.5 [Symbicort 160/4.5 Mcg Inhaler (SP)] 2 puff INHALATION BID 06/14/19 Omeprazole 40 mg PO DAILY PRN 06/14/19 Dipyridamole 75 mg PO BID 12/02/20 Losartan Potassium [Cozaar] 12.5 - 25 mg PO DAILY 12/02/20 Ondansetron [Zofran] 8 mg PO Q8H PRN PRN #15 tablet 12/03/20 Following Prescriptions Were Given to Patient: Ondansetron [Zofran] 8 mg PO Q8H PRN PRN #15 tablet PRN Reason: nausea vomiting Transmission Status: Pending to [facility] Primary Care Physician: Julius Sandoval MD [Primary Care Provider] - Within 2 Weeks Please Follow Up With: Radha Storm MD When: 01/07/2021, already scheduled Disposition: Home Minutes spent on discharge:: 24 Patient Condition:: Good Medical Necessity - Tobacco Use Smoking Status: Never smoker Tobacco Use: Non-smoker Meaningful Use Info Meaningful Use Diagnoses (Choose all that apply): None applicable OBSV E&M: 81315 Observation care discharge
--- NOTE | 2020-12-03 12:12 | PHA.DC.MC ---
Pharmacy Service has performed discharge medication reconciliation and counseling for this patient. The patient was counseled on the following discharge medications and changes in medications for homegoing were reviewed. 1. ZOFRAN The Reason for Use, instructions for use, and potential side effects were reviewed for all new medications. The patient's questions regarding all of their medications were answered. The patient was able to verbally demonstrate an understanding of their discharge medications. Home Medications Albuterol Inhaler [Ventolin Hfa] 2 puff INHALATION Q4H PRN PRN 03/20/15 Aspirin [Aspirin, Baby] 81 mg PO QHS 03/20/15 Montelukast [Singulair] 10 mg PO QHS 03/20/15 Spironolactone [Aldactone] 25 mg PO BID 03/20/15 Torsemide [Demadex] 10 mg PO DAILY 03/20/15 Budesonide/Formoterol 160/4.5 [Symbicort 160/4.5 Mcg Inhaler (SP)] 2 puff INHALATION BID 06/14/19 Omeprazole 40 mg PO DAILY PRN 06/14/19 Dipyridamole 75 mg PO BID 12/02/20 Losartan Potassium [Cozaar] 12.5 - 25 mg PO DAILY 12/02/20 Ondansetron [Zofran] 8 mg PO Q8H PRN PRN #15 tablet 12/03/20 The patient's discharge medication list was reviewed for discrepancies and discrepancies were resolved.
--- NOTE | 2020-12-03 12:26 | NURSING ---
STUDENT CHARTING REVIEWED BY THIS RN. THIS RN AGREES WITH INFORMATION CHARTED BY STUDENT.
[2020-12-03] MEDS: Heparin Injection (Vial) 5,000 UNIT/ML VIAL 5000 UNIT SC (13:18)
--- NOTE | 2020-12-03 13:30 | CASEMGMT ---
Pt screened using [facility] Palliative Care Screening Tool. Pt did not meet criteria.
[2020-12-03 14:23] VITALS: O2SAT 99
[2020-12-03 16:44] VITALS: BP 116/45; PULSE 64; RESP 14; TEMP 36.8; O2SAT 99
--- NOTE | 2020-12-04 15:32 | CASEMGMT ---
BRADEN CHEUNG Discharge Follow Up Phone Call: HEATHER: Delia Strata:3 Call Date: 12/04/20 Discharge Date: 12/03/20 Time of Call:1525 Duration:3 min Admitting Dx:SBO BRADEN CHEUNG completed follow up phone call after recent hospitalization. Pt states she still felt sick this AM but thinks it was due to the medication given for her last study at the hospital. States she is feeling better now. Pt declined to pharmacy picking tech her RX ordered. States it was for nausea and that is the first symptom of her SBO and she does not want to mask the symptom. Pt aware of her FU appt scheduled for 12/07/[address] Sandoval. Pt pleased with the care she recieved from [facility]. Pt has no further questions or concerns at this time.
== END 2020-12-03 18:46 | disposition home or self-care (01) | DRG 389 ==
LOC: ED 15:29 → PCU 16:27
PROVIDERS: Admitting Provider Internal Medicine; Emergency Provider Student in an Organized Health Care Education/Training Program; PCP Family Medicine
DX: K56.600 Partial intestinal obstruction, unspecified as to cause (principal); I13.0 Hypertensive heart and chronic kidney disease with heart failure and stage 1 through stage 4 chronic kidney disease, or unspecified chronic kidney disease; N18.31 Chronic kidney disease, stage 3a; I50.9 Heart failure, unspecified; J44.9 Chronic obstructive pulmonary disease, unspecified; I25.10 Atherosclerotic heart disease of native coronary artery without angina pectoris
CPT/HCPCS: 36415; 74177; 74250; 80053; 81001; 83690; 85025; 93005; 94640; 97802; 99251; 99283; J7030; J7040; Q9967; A4216; G0463; J2405

== ENCOUNTER 2021-02-11 09:20 | Emergency (ER) | payer MEDICARE, SELFPAY ==
[2020-12-02 16:54] VITALS: BMI 26.0
[2021-02-11 09:21] VITALS: BP 140/75; PULSE 78; RESP 16; TEMP 36.4; O2SAT 98; BMI 24.9
[2021-02-11 09:23] VITALS: BP 140/75; PULSE 78; RESP 16; TEMP 36.4; O2SAT 98
--- NOTE | 2021-02-11 09:32 | EX.ED.DYSGE1 ---
HPI History of Present Illness Chief Complaint: Nausea/Vomiting Narrative Narrative: 80-year-old female patient of Dr. Moses Dill who reports that she has had abdominal pain that began 3 days ago. It is an aching pain that is intermittent and lasts hours at a time. She is pain-free currently. It is 5 out of 10 at worst. Nothing makes this better or worse. However, patient reports that it is worse after dinner each evening. She reports that she has had severe nausea. No vomiting. She had a loose bowel movement today. No blood in her stools or black tarry stools. She is passing flatus. She denies any dysuria or frequency. Patient reports that this is similar to when she had a small bowel obstruction in the past. Of note patient reports that she finished prednisone 2 days ago for gout. She was not on NSAIDs. [facility] Medical History (Updated 02/11/21 @ 17:[address] Garrison Christy MD) Broken heart syndrome Congestive heart failure Endometrial cancer History of breast cancer History of stroke Hypertension Myocardial infarction Home Medications albuterol sulfate 2 puff INHALATION Q4H PRN PRN 03/20/15 [History Last Taken 11/30/20] aspirin 81 mg PO QHS 03/20/15 [History Last Taken 12/01/20] montelukast 10 mg PO QHS 03/20/15 [History Last Taken 12/01/20] spironolactone 25 mg PO BID 03/20/15 [History Last Taken 12/01/20] torsemide 10 mg PO DAILY 03/20/15 [History Last Taken 12/01/20] budesonide-formoterol 2 puff INHALATION BID 06/14/19 [History Last Taken 12/02/20] omeprazole 40 mg PO DAILY PRN 06/14/19 [History Last Taken 12/02/20] dipyridamole 75 mg PO BID 12/02/20 [History Last Taken 12/01/20] losartan 12.5 - 25 mg PO DAILY 12/02/20 [History Last Taken 12/01/20] ondansetron HCl 8 mg PO Q8H PRN PRN #15 tablet 12/03/20 [Rx Last Taken Unknown] ondansetron 4 mg PO Q8H PRN #10 tab 02/11/21 [Rx Last Taken Unknown] Allergy/AdvReac Type Severity Reaction Status Date / Time clarithromycin [From Biaxin] Allergy Fever Verified 02/11/21 09:23 diazepam [From Valium] Allergy seizures Verified 02/11/21 09:23 diphenhydramine HCl Allergy difficulty Verified 02/11/21 09:23 [From Benadryl] breathing esomeprazole magnesium Allergy chest pain Verified 02/11/21 09:23 [From Nexium] NSAIDS (Non-Steroidal Allergy Other Verified 02/11/21 09:23 Anti-Inflamma Penicillins Allergy Rash Verified 02/11/21 09:23 pentazocine lactate Allergy quit Verified 02/11/21 09:23 [From Talwin] breathing Sulfa (Sulfonamide Allergy Rash Verified 02/11/21 09:23 Antibiotics) sulfur dioxide Allergy massive Verified 02/11/21 09:23 headaches Family History Mother Cancer stomach throat Thyroid disorder Father Heart disease Surgical History H/O bilateral mastectomy H/O bilateral oophorectomy H/O dilation and curettage History of cholecystectomy History of colon surgery S/P RAFIA (total abdominal hysterectomy) Social History Smoking Status: Never smoker alcohol intake: never substance use type: does not use caffeine: Yes what type of physical activity do you participate in: walking and bicycling frequency: daily seatbelt use: always do you feel safe at home: Yes additional social history: Russell- Both are retired ROS ROS ED Constitutional Constitutional ED: Reports chills; Denies fever(s) or sweats Eyes Eyes: Denies change in vision ENT ENT ED: Denies sore throat Cardiovascular Cardiovascular: Denies chest pain Respiratory/Chest Respiratory/Chest: Denies cough, dyspnea or dyspnea on exertion Gastrointestinal Gastrointestinal: Reports abdominal pain and nausea; Denies diarrhea, melena or vomiting Genitourinary Genitourinary ED: Denies dysuria or urinary frequency Musculoskeletal Musculoskeletal: Denies myalgias Integumentary Denies rash Neurologic Neurologic: Denies headache(s), paresthesias or weakness EXAM Physical Exam Const Vital Signs: 02/11/21 09:21 02/11/21 09:23 02/11/21 10:23 Temperature 97.6 F L 97.6 F L 97.6 F L Temperature Source Temporal Temporal Temporal Pulse Rate 78 78 75 Respiratory Rate 16 16 18 Blood Pressure 140/75 H 140/75 H 138/72 H Blood Pressure Mean 96 96 94 Pulse Ox 98 98 98 Oxygen Delivery Method Room Air Room Air Room Air 02/11/21 11:50 Temperature Temperature Source Pulse Rate 74 Respiratory Rate 18 Blood Pressure 107/74 Blood Pressure Mean Pulse Ox 99 Oxygen Delivery Method Positive well nourished and well developed General Appearance ED: well developed HEENT Reports normocephalic and head/scalp atraumatic Eyes PERRL Neck no lymphadenopathy, supple and no JVD General: Negative for tenderness Resp normal respiratory effort and clear to auscultation bilaterally Cardio regular rate, regular rhythm and no murmurs GI non-tender and non-distended GI Narrative: No guarding, rebound, or peritoneal signs. Auscultation: hypoactive bowel sounds Palpation: soft Back/Spine Back/Spine Narrative: Nontender. Extremity General Extremety ED: Negative for edema or tenderness General Extremity: Negative for edema Neuro oriented x3, CN's II-XII intact bilaterally and no sensory deficits noted Sensorium / Orientation: alert Motor Exam: strength 5/5 throughout Psych mental status grossly normal Skin no rashes or lesions noted MDM MDM Lab Data Labs: Laboratory Results - last 24 hr 02/11/21 02/11/21 02/11/21 10:10 10:10 10:31 WBC 8.4 RBC 3.97 L Hgb 12.3 Hct 38.4 MCV 96.7 MCH 31.0 MCHC 32.0 RDW Std Deviation 45.2 H RDW Coeff of Yariel 12.7 Plt Count 236 MPV 8.7 Immature Gran % (Auto) 1.000 H Neut % (Auto) 80.8 H Lymph % (Auto) 10.3 L [place] % (Auto) 7.1 Eos % (Auto) 0.7 Baso % (Auto) 0.1 Absolute Neuts (auto) 6.8 Absolute Lymphs (auto) 0.87 Nucleated RBC % 0 Sodium 140 Potassium 3.9 Chloride 107 Carbon Dioxide 29.0 Anion Gap 4 L BUN 47 H Creatinine 1.79 H Estim Creat Clear Calc 18.28 Est GFR (MDRD) Af Amer 35 L Est GFR (MDRD) Non-Af 29 L BUN/Creatinine Ratio 26.3 H Glucose 103 Calcium 8.7 Total Bilirubin 1.10 H AST 22 ALT 30 Alkaline Phosphatase 91 Troponin I < 0.015 Total Protein 6.5 Albumin 3.5 Globulin 3.0 Albumin/Globulin Ratio 1.2 Lipase 338 Urine Color Yellow Urine Clarity Sl. Cloudy Urine pH 6.0 Ur Specific [place] 1.015 Urine Protein Negative Urine Glucose (UA) Normal Urine Ketones Negative Urine Occult Blood 10 H Urine Nitrite Negative Urine Bilirubin Negative Urine Urobilinogen Normal Ur Leukocyte Esterase 500 H Urine RBC 0-5 SEEN Urine WBC 0 SEEN Ur Squamous Epith Cells 0-5 SEEN Urine Bacteria 0 SEEN Urine Mucus 0 SEEN Radiography Diagnostic Testing: Radiology Impression Abdomen/Pelvis CT 02/11/21 09:56 IMPRESSION: Stable examination. No acute abnormality is seen. Electronically Signed: Clif Peraza MD at 11:19 EDT , Service support , EKG Initial EKG: Attestation: I personally reviewed and interpreted this EKG as follows: Interpretation: Sinus Rhythm and Non-Specific ST Changes Comments: EKG is sinus at 72. Inferior Q waves. Unchanged from December 02, 2020. Treatment and Re-Evaluation Comments:: Emergency department course: Patient had an IV placed. She was given a dose of Zofran IV. She is resting comfortably. Treatment plan: Patient will be discharged with Zofran. Instructed to follow-up with her primary care physician 1 to 2 days if not improving. Return to the emergency department for any worsening symptoms. Disposition: To home in improved and stable condition. This note was generated with [employer] dictation software. It may contain incorrect words, spelling, and punctuation that were not noted in review of the chart prior to signing. Discharge Plan Triage Chief Complaint: Nausea/Vomiting ED Provider: Garrison Christy Dx/Rx/DC Orders Clinical Impression: Stage III chronic kidney disease, Abdominal pain Instructions: ED Vomiting (Adult) Prescriptions: New ondansetron 4 mg tablet,disintegrating 4 mg PO Q8H PRN (Reason: nausea and vomiting) Qty: 10 RF: 0 No Action torsemide 20 MG tablet 10 mg PO DAILY RF: 0 spironolactone 25 MG tablet 25 mg PO BID RF: 0 aspirin 81 MG tablet,chewable 81 mg PO QHS RF: 0 montelukast 10 MG tablet 10 mg PO QHS RF: 0 albuterol sulfate 1 INHALER inhaler 2 puff INHALATION Q4H PRN PRN (Reason: Shortness Of Breath) RF: 0 omeprazole 40 MG capsule,delayed release(DR/EC) 40 mg PO DAILY PRN (Reason: stomach) RF: 0 budesonide-formoterol 1 INHALER inhaler 2 puff inhalation BID RF: 0 dipyridamole 75 MG tablet 75 mg PO BID RF: 0 losartan 25 MG tablet 12.5 - 25 mg PO DAILY RF: 0 ondansetron HCl 8 MG tablet 8 mg PO Q8H PRN PRN (Reason: nausea vomiting) Qty: 15 RF: 0 Primary Care Provider: Julius Sandoval Referrals: Julius Sandoval MD [Primary Care Provider] - 1-2 Days if not improving Disposition Disposition: Home, self care Discharge Date/Time: 02/11/21 11:56
--- NOTE | 2021-02-11 09:56 | CT_ITS ---
STUDY: CT ABDOMEN AND PELVIS WITHOUT CONTRAST REASON FOR EXAM: Female, 80 years old. Partial SBO . Patient has a 3 day history of nausea. History of breast cancer with omental metastasis. RADIATION DOSAGE (If Supplied By Facility): CTDIvol = ( 7.38 ) mGy, DLP = ( 325.54 ) mGycm TECHNIQUE: Transaxial images were obtained from the dome of the diaphragm to the symphysis pubis without oral contrast, and without intravenous contrast. Sagittal and coronal images were reconstructed. Individualized dose optimization techniques were used for this CT. COMPARISON: Comparison is made with prior study of 12/02/2020. FINDINGS: The visualized lung bases are unremarkable. The visualized portions of the heart are within normal limits. Normal liver. The patient is status post cholecystectomy. Normal spleen. Normal pancreas. Normal bilateral adrenal glands. Normal right kidney. Normal left kidney. There is a small hiatal hernia. Normal small intestine. Normal colon. There is non-visualization of the appendix. There is diffuse atherosclerotic calcification of the abdominal aorta and its major visceral branches, without a demonstrated aneurysm. Normal inferior vena cava. Normal retroperitoneum. Distended urinary bladder. There is absence of the uterus consistent with a prior hysterectomy. Normal abdominal wall. There are diffuse degenerative changes of the visualized lumbar spine. CT/Abdomen/Pelvis without Cont IMPRESSION: Stable examination. No acute abnormality is seen. Electronically Signed: Clif Peraza MD at 11:19 EDT , Service support ,
--- NOTE | 2021-02-11 09:56 | EKG12_ITS ---
Test Reason : STOMACH PAINS Blood Pressure : / mmHG Vent. Rate : 072 BPM Atrial Rate : 072 BPM P-R Int : 164 ms QRS Dur : 080 ms QT Int : 414 ms P-R-T Axes : 069 -44 036 degrees QTc Int : 453 ms Normal sinus rhythm Left axis deviation Low voltage QRS Abnormal ECG Confirmed by MARYLOU HSIEH, BEULAH ([id number]), book or script editor ROB FUENTES ([id number]) on 02/12/2021 10:19:51 AM Referred By: TERENCE Confirmed By:BEULAH HICKMAN MD
[2021-02-11 10:23] VITALS: BP 138/72; PULSE 75; RESP 18; TEMP 36.4; O2SAT 98
[2021-02-11 10:23] LABS: Absolute Lymphocyte Count 0.87 X10^3/uL (0.83-4.51); Absolute Neutrophil Count 6.8 X10^3/uL (2.0-7.7); Basophil# 0.01 X10^3/uL; Basophil% 0.1 % (0-1); Eosinophil# 0.06 X10^3/uL; Eosinophils% 0.7 % (0-5); Hematocrit 38.4 % (37-47); Hemoglobin 12.3 g/dL (12.0-15.0); Lymphocyte # 0.87 X10^3/ul (0.83-4.51); Lymphocyte % 10.3 % (19-41); Mean Corpuscular Volume 96.7 fL (81-99); Mean Platelet Vol. 8.7 fl (6.2-12.0); Monocyte% 7.1 % (0-10); NRBC Flagged by Analyzer 0 % (0-5); Neutrophil % 80.8 % (47-70); Platelet Count 236 K/mm3 (150-450); RBC Distribution Width CV 12.7 % (11.6-14.6); RBC Distribution Width SD 45.2 fl (35.1-43.9); Red Blood Count 3.97 M/mm3 (4.2-5.4); White Blood Count 8.4 K/mm3 (4.4-11.0)
[2021-02-11] MEDS: Ondansetron 4 MG/2 ML Vial IV (10:26)
[2021-02-11 10:40] LABS: Bacteria 0 SEEN /hpf (None Seen); Mucous, Urine 0 SEEN /hpf (<or=2+); White Blood Cells 0 SEEN /hpf (0-5)
[2021-02-11 10:41] LABS: ALB/GLOB Ratio 1.2 RATIO (0.9-2.4); AST(SGOT) 22 U/L (15-37); Alanine Aminotransfer ALT/SGPT 30 U/L (13-56); Albumin, Serum 3.5 g/dL (3.2-5.0); Alkaline Phosphatase 91 U/L (45-117); Anion Gap 4 (5-15); BUN 47 mg/dL (7-18); BUN/Creat Ratio 26.3 RATIO (10-20); Calcium,Total 8.7 mg/dL (8.5-10.1); Chloride 107 mmol/L (98-107); Creatinine, Serum 1.79 mg/dL (0.55-1.02); EST Glomerular Filtration Rate 29 mL/min (>60); Est Glom Filt Rate - Afr Amer 35 mL/min (>60); Estimated Creatinine Clearance 18.28 ml/min; Glucose 103 mg/dL (74-106); Lipase 338 U/L (73-393); Potassium 3.9 mmol/L (3.5-5.1); Protein, Total 6.5 g/dL (6.4-8.2); Sodium Level 140 mmol/L (136-145)
[2021-02-11 10:41] LABS: Color, Urine Yellow (Yellow); Glucose, Dipstick Normal (Normal); Ketone-Dipstick Negative (Negative); Leukocyte Esterase-Dipstick 500 /ul (Negative); Nitrite-Dipstick Negative (Negative); Occult Blood-Urine 10 /ul (Negative); Protein-Dipstick Negative (Negative); Specific Gravity, Urine 1.015 (1.002-1.030); Urine Bilirubin Dipstick Negative (Negative); Urine Clarity Sl. Cloudy (Clear); Urine Urobilinogen Normal (Normal)
[2021-02-11 10:48] LABS: Red Blood Cells-Urine 0-5 SEEN /hpf (0-5); Squamous Epithelial Cells - UA 0-5 SEEN /hpf (5-10)
[2021-02-11 11:50] VITALS: BP 107/74; PULSE 74; RESP 18; O2SAT 99
== END 2021-02-11 11:56 | disposition home or self-care (01) ==
LOC: ED 10:09
PROVIDERS: Emergency Provider Emergency Medicine; PCP Family Medicine
DX: R10.9 Unspecified abdominal pain (principal); I13.0 Hypertensive heart and chronic kidney disease with heart failure and stage 1 through stage 4 chronic kidney disease, or unspecified chronic kidney disease; N18.30 Chronic kidney disease, stage 3 unspecified; I50.9 Heart failure, unspecified; Z86.73 Personal history of transient ischemic attack (TIA), and cerebral infarction without residual deficits; Z79.899 Other long term (current) drug therapy
CPT/HCPCS: 74176; 80053; 81001; 83690; 84484; 85025; 93005; 96374; 99284; A4216; J2405

== ENCOUNTER 2021-05-11 15:52 | Emergency (ER) | payer MEDICARE, SELFPAY ==
[2021-05-11 15:54] VITALS: BP 133/61; PULSE 97; RESP 18; TEMP 36.2; O2SAT 98; BMI 25.9
--- NOTE | 2021-05-11 16:08 | EDS_ITS ---
HPI History of Present Illness Chief Complaint: Laceration Informant: patient Occured/Mechanism Mechanism/Context: Yes injury Comment: Laceration distal anterior right leg Onset/Context/Timing Context: Sudden Onset Timing: Continuous Location: Distal anterior right leg Current Severity: Moderate Maximum Severity: Moderate Worsened by: Patient on immunosuppressive medication for gout Relieved by: Nothing Associated Symptoms Associated Symptoms: Negative for Parasthesia, Weakness and Loss of Funtion Narrative Narrative: Patient is an elderly woman with history of stage IIIa kidney disease, GERD, asthma, coronary disease, congestive heart failure and gout on immunosuppressive medication who presents because of laceration to her anterior right leg. This occurred prior to arrival. She was climbing over a log. There was a branch that was sticking out causing the laceration. She is uncertain of last tetanus. Nurse will review prior records to determine if she has had one the last 5 years or 10 years. If needed will be updated. She denies paresthesia, anesthesia or motor weakness. She states she had a similar wound in August and followed up at the wound center for 1 month. She denies history of diabetes, peripheral arterial disease, rheumatic fever or valvular heart disease. There is no history of SBE. Tetanus Immunization: Unknown (Nurse will review prior records) Prior similar symptoms: Yes Recent Illness/Hospitalization: No [facility] Medical History (Updated 05/11/21 @ 17:[address] Rivas Thao MD) Broken heart syndrome Congestive heart failure Endometrial cancer History of breast cancer History of stroke Hypertension Myocardial infarction no medical history Home Medications albuterol sulfate 2 puff INHALATION Q4H PRN PRN 03/20/15 [History Last Taken 11/30/20] aspirin 81 mg PO QHS 03/20/15 [History Last Taken 12/01/20] montelukast 10 mg PO QHS 03/20/15 [History Last Taken 12/01/20] spironolactone 25 mg PO BID 03/20/15 [History Last Taken 12/01/20] torsemide 10 mg PO DAILY 03/20/15 [History Last Taken 12/01/20] omeprazole 40 mg PO DAILY PRN 06/14/19 [History Last Taken 12/02/20] dipyridamole 75 mg PO BID 12/02/20 [History Last Taken 12/01/20] losartan 12.5 - 25 mg PO DAILY 12/02/20 [History Last Taken 12/01/20] budesonide-formoterol HFA 160 mcg-4.5 mcg/actuation aerosol inhaler 2 puff INHALATION BID 02/25/21 [History Last Taken Unknown] fluconazole 150 mg tablet 150 mg PO .COMPLEX #2 tab 03/17/21 [Rx Last Taken Unknown] doxycycline monohydrate 100 mg PO BID #10 capsule 05/11/21 [Rx Last Taken Unknown] Allergy/AdvReac Type Severity Reaction Status Date / Time clarithromycin [From Biaxin] Allergy Fever Verified 05/11/21 15:54 diazepam [From Valium] Allergy seizures Verified 05/11/21 15:54 diphenhydramine HCl Allergy difficulty Verified 05/11/21 15:54 [From Benadryl] breathing esomeprazole magnesium Allergy chest pain Verified 05/11/21 15:54 [From Nexium] NSAIDS (Non-Steroidal Allergy Other Verified 05/11/21 15:54 Anti-Inflamma Penicillins Allergy Rash Verified 05/11/21 15:54 pentazocine lactate Allergy quit Verified 05/11/21 15:54 [From Talwin] breathing Sulfa (Sulfonamide Allergy Rash Verified 05/11/21 15:54 Antibiotics) sulfur dioxide Allergy massive Verified 05/11/21 15:54 headaches Family History Mother Cancer stomach throat Thyroid disorder Father Heart disease Surgical History H/O bilateral mastectomy H/O bilateral oophorectomy H/O dilation and curettage History of cholecystectomy History of colon surgery S/P RAFIA (total abdominal hysterectomy) Social History Smoking Status: Never smoker alcohol intake: never substance use type: does not use caffeine: Yes what type of physical activity do you participate in: walking and bicycling frequency: daily seatbelt use: always do you feel safe at home: Yes additional social history: Kade Higgins are retired ROS ROS ED Constitutional Constitutional ED: Denies chills, fever(s), subjective or sweats Gastrointestinal Gastrointestinal: Denies nausea or vomiting Integumentary Reports other Details: Flap type laceration anterior distal right leg ; Denies abscess, Abrasions or rash Neurologic Neurologic: Denies paresthesias or weakness Hematologic/Lymphatic Hematologic/Lymphatic: Denies easy bleeding or easy bruising EXAM Physical Exam Const Vital Signs: 05/11/21 15:54 Temperature 97.2 F L Temperature Source Temporal Pulse Rate 97 Respiratory Rate 18 Blood Pressure 133/61 H Blood Pressure Mean 85 Pulse Ox 98 Oxygen Delivery Method Room Air Positive well nourished and well developed General Appearance ED: well developed HEENT normocephalic and atraumatic Eyes PERRL Eyes Narrative: Extract muscle intact. Sclerae anicteric. Neck full ROM and supple Resp normal respiratory effort Cardio regular rate and regular rhythm Extremity full ROM; Negative for normal to inspection Extremity Narrative: Patient has a less than 6 simple type laceration on the distal anterior right leg. This measures 2.5 x 3 cm. Patient does have thin skin and concern if sutured skin will tear. Will clean wound and determine if this could be stapled to approximate wound and facilitate healing versus Steri- Strips and follow-up with wound center DP pulses palpable. There is no evidence infection. There is no tenderness over the lateral medial malleolus. Please read procedure note to determine if there are any foreign bodies i.e. wood in the wound. General Extremety ED: Yes edema; Negative for cyanosis or weight-bearing difficulty General Extremity: edema; Negative for cyanosis or weight-bearing difficulty Neuro oriented x3, CN's II-XII intact bilaterally and no sensory deficits noted Sensorium / Orientation: alert Motor Exam: strength 5/5 throughout Psych mental status grossly normal Skin No no wounds Skin Narrative: Wound previously described under the extremity portion of the chart Lesions: no lesions Rashes: no rashes MDM MDM MDM Narrative Medical decision making narrative: Nurse to determine last tetanus and updated if needed. Wound care and possible repair with coleen versus Steri-Strip and follow-up with the wound center imaging is not indicated. Discharge Plan Triage Chief Complaint: Laceration ED Provider: Rivas Thao Dx/Rx/DC Orders Clinical Impression: Laceration of leg not thigh, right Instructions: ED Laceration: All Closures Prescriptions: New doxycycline monohydrate 100 MG capsule 100 mg PO BID Qty: 10 RF: 0 No Action torsemide 20 MG tablet 10 mg PO DAILY RF: 0 spironolactone 25 MG tablet 25 mg PO BID RF: 0 aspirin 81 MG tablet,chewable 81 mg PO QHS RF: 0 montelukast 10 MG tablet 10 mg PO QHS RF: 0 albuterol sulfate 1 INHALER inhaler 2 puff INHALATION Q4H PRN PRN (Reason: Shortness Of Breath) RF: 0 omeprazole 40 MG capsule,delayed release(DR/EC) 40 mg PO DAILY PRN (Reason: stomach) RF: 0 budesonide-formoterol 160-4.5 mcg/actuation HFA aerosol inhaler 2 puff inhalation BID RF: 0 dipyridamole 75 MG tablet 75 mg PO BID RF: 0 losartan 25 MG tablet 12.5 - 25 mg PO DAILY RF: 0 fluconazole 150 mg tablet 150 mg PO .COMPLEX Qty: 2 RF: 0 Primary Care Provider: Julius Sandoval Referrals: Julius Sandoval MD [Primary Care Provider] - 2 Days for wound check Center,Wound [NON-STAFF] - 2 Days for wound check Disposition Disposition: Home, Self Care
[2021-05-11] MEDS: Lidocaine 1% (20 ml mdv) 20 ML Vial INFILT (17:11)
[2021-05-11] MEDS: Doxycycline 100 MG CAPSULE PO (17:53)
[2021-05-11 17:56] VITALS: BP 119/74; PULSE 76; RESP 20; O2SAT 99
--- NOTE | 2021-05-11 17:57 | ED.RN ---
THIS NURSE REVIEWED D/C INSTRUCTIONS WITH PT. PT VERBALIZED UNDERSTANDING OF INSTRUCTIONS. PT DENIES FURTHER NEEDS OR QUESTIONS AT THIS TIME. PT AMBULATES FROM ROOM ON OWN WITHOUT ASSISTANCE FROM STAFF
== END 2021-05-11 17:58 | disposition home or self-care (01) ==
PROVIDERS: Emergency Provider Emergency Medicine; PCP Family Medicine
DX: S81.811A Laceration without foreign body, right lower leg, initial encounter (principal); I25.2 Old myocardial infarction; Z85.3 Personal history of malignant neoplasm of breast; Z86.73 Personal history of transient ischemic attack (TIA), and cerebral infarction without residual deficits; X58.XXXA Exposure to other specified factors, initial encounter
CPT/HCPCS: 12002; 99284

== ENCOUNTER 2021-06-11 14:34 | Inpatient (IN) | payer MEDICARE, SELFPAY ==
[2021-06-11 14:36] VITALS: BP 147/74; PULSE 94; RESP 18; TEMP 36.3; O2SAT 96; BMI 24.9
[2021-06-11 14:53] LABS: Absolute Neutrophil Count 9.8 X10^3/uL (2.0-7.7); Basophil# 0.02 X10^3/uL; Basophil% 0.2 % (0-1); Eosinophil# 0.03 X10^3/uL; Eosinophils% 0.3 % (0-5); Hematocrit 37.7 % (37-47); Hemoglobin 12.3 g/dL (12.0-15.0); Lymphocyte % 5.4 % (19-41); Mean Corp Hgb Conc 32.6 g/dL (32-36); Mean Corpuscular Hgb 31.4 pg (27.0-32.0); Mean Corpuscular Volume 96.2 fL (81-99); Mean Platelet Vol. 8.5 fl (6.2-12.0); Monocyte# 0.58 X10^3/uL; Monocyte% 5.2 % (0-10); NRBC Flagged by Analyzer 0 % (0-5); Neutrophil % 88.5 % (47-70); POSITIVE DIFFERENTIAL YES; Platelet Count 223 K/mm3 (150-450); RBC Distribution Width CV 13.1 % (11.6-14.6); RBC Distribution Width SD 46.2 fl (35.1-43.9); Red Blood Count 3.92 M/mm3 (4.2-5.4); White Blood Count 11.1 K/mm3 (4.4-11.0)
[2021-06-11 14:56] LABS: Differential Indicated SCAN CRITERIA MET
[2021-06-11 15:06] LABS: Anion Gap 6 (5-15); BUN 31 mg/dL (7-18); BUN/Creat Ratio 24.8 RATIO (10-20); Calcium,Total 9.4 mg/dL (8.5-10.1); Chloride 109 mmol/L (98-107); Creatinine, Serum 1.25 mg/dL (0.55-1.02); EST Glomerular Filtration Rate 44 mL/min (>60); Est Glom Filt Rate - Afr Amer 53 mL/min (>60); Estimated Creatinine Clearance 26.18 ml/min; Glucose 126 mg/dL (74-106); Potassium 4.4 mmol/L (3.5-5.1); Sodium Level 141 mmol/L (136-145)
--- NOTE | 2021-06-11 16:26 | CT_ITS ---
STUDY: CT ABDOMEN AND PELVIS WITHOUT CONTRAST REASON FOR EXAM: Female, 80 years old. abdominal pain RADIATION DOSAGE (If Supplied By Facility): CTDIvol = ( 7.02 ) mGy, DLP = ( 289.32 ) mGycm TECHNIQUE: Transaxial images were obtained from the dome of the diaphragm to the symphysis pubis without oral contrast, and without intravenous contrast. Sagittal and coronal images were reconstructed. Individualized dose optimization techniques were used for this CT. COMPARISON: 02/11/2021 FINDINGS: The visualized lung bases are unremarkable. The visualized portions of the heart are within normal limits. Normal liver. There is non-visualization of the gallbladder, which may be secondary to either contraction or a prior cholecystectomy. Normal spleen. Normal pancreas. Normal bilateral adrenal glands. Normal right kidney. Normal left kidney. There is a small hiatal hernia. There are multiple loops of moderately dilated small bowel in the left side of the abdomen in the pelvis which may represent a partial small bowel obstruction. Transition point is not clearly identified. No pneumatosis to suggest ischemia. No pneumoperitoneum to suggest perforation. Normal colon. There is non-visualization of the appendix. There is diffuse atherosclerotic calcification of the abdominal aorta, without a demonstrated aneurysm. Normal inferior vena cava. Normal retroperitoneum. Normal urinary bladder. Normal abdominal wall. Mild levoscoliosis of the lumbar spine with degenerative disc disease. CT/Abdomen/Pelvis without Cont IMPRESSION: Possible partial small bowel obstruction in the left lower quadrant but the transition point is not clearly identified. No ischemia or perforation. Electronically Signed: Kirby Elizabeth MD at 17:53 EDT Tel , Service support ,
--- NOTE | 2021-06-11 16:27 | ED.VIS.GI ---
HPI HPI - GI History of Present Illness Chief Complaint: Abd Pain Detail of Chief Complaint: Abdominal pain that started around 7 AM. Informant: patient Abdominal Pain/Flank Pain Current Severity: 5/10 Maximum Severity: 8/10 Narrative Narrative: Patient presents to the emergency department complaint of abdominal pain that started this morning around 7 AM somewhat suddenly. Patient states that she had a normal bowel movement around 7 AM and about half an hour later had 2 watery stools. Patient continues to have ongoing abdominal pain and reminds her of prior bowel obstructions that she has had. Patient believes she has had about 5 bowel obstructions and the first 1 required surgical intervention because she perforated her bowel. Patient vomited x2 today. She denies any fevers. She denies urinary symptoms. Currently rates her pain a 5 out of 10. [facility] Medical History (Updated 06/11/21 @ 18:[address] 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5 mcg/actuation aerosol inhaler 2 puff INHALATION BID 02/25/21 [History Last Taken Unknown] fluconazole 150 mg tablet 150 mg PO .COMPLEX #2 tab 03/17/21 [Rx Last Taken Unknown] Allergy/AdvReac Type Severity Reaction Status Date / Time clarithromycin [From Biaxin] Allergy Fever Verified 06/11/21 14:37 diazepam [From Valium] Allergy seizures Verified 06/11/21 14:37 diphenhydramine HCl Allergy difficulty Verified 06/11/21 14:37 [From Benadryl] breathing esomeprazole magnesium Allergy chest pain Verified 06/11/21 14:37 [From Nexium] NSAIDS (Non-Steroidal Allergy Other Verified 06/11/21 14:37 Anti-Inflamma Penicillins Allergy Rash Verified 06/11/21 14:37 pentazocine lactate Allergy quit Verified 06/11/21 14:37 [From Talwin] breathing Sulfa (Sulfonamide Allergy Rash Verified 06/11/21 14:37 Antibiotics) sulfur dioxide Allergy massive Verified 06/11/21 14:37 headaches Family History Mother Cancer stomach throat Thyroid disorder Father Heart disease Surgical History H/O bilateral mastectomy H/O bilateral oophorectomy H/O dilation and curettage History of cholecystectomy History of colon surgery S/P RAFIA (total abdominal hysterectomy) Social History Smoking Status: Never smoker alcohol intake: never substance use type: does not use caffeine: Yes what type of physical activity do you participate in: walking and bicycling frequency: daily seatbelt use: always do you feel safe at home: Yes additional social history: Russell- Both are retired ROS ROS ED Constitutional Constitutional ED: Reports systems reviewed and no addt'l complaints, except as documented; Denies body ache(s), change in weight or chills Eyes Eyes: Denies acute decrease in peripheral vision, change in vision, double vision or loss of vision ENT ENT ED: Reports none; Denies ear pain, lip swelling, loss taste/smell, neck pain, otalgia or sore throat Cardiovascular Cardiovascular: Reports none; Denies abdominal pain, chest pain with activity, leg edema, lightheadedness, palpitations, rapid heart rate or syncope Respiratory/Chest Respiratory/Chest: Reports none; Denies change in mental status, dry cough, dyspnea, hemoptysis, shortness of breath at rest or shortness of breath with exertion Gastrointestinal Gastrointestinal: Reports none, abdominal pain, diarrhea, nausea and vomiting; Denies change in stool character, hematemesis, hematochezia, melena or rectal bleeding Genitourinary Genitourinary ED: Reports none; Denies abdominal discomfort, anuria, dysuria, genital pain or polyuria Musculoskeletal Musculoskeletal: Reports none; Denies arthralgias, back pain, difficulty walking, extremity pain, muscle weakness or myalgias Integumentary Reports none; Denies abscess or rash Neurologic Neurologic: Reports none; Denies abnormal gait, confusion, focal weakness, frequent falls, headache(s), loss of vision, numbness, paresthesias, radicular pain, vertigo or weakness Psychiatric Psychiatric: Reports systems reviewed and no addt'l complaints, except as documented and none; Denies behavioral changes, confusion, difficulty concentrating, hallucinations, suicidal ideation, tactile hallucinations or visual hallucinations Endocrine Endocrinology: Denies none, cold intolerance, excessive sweating, fatigue or heat intolerance Hematologic/Lymphatic Hematologic/Lymphatic: Reports none; Denies anemia, easy bleeding or easy bruising Allergic/Immunologic Allergic/Immunologic ED: Denies as per HPI, none, lip swelling, mouth swelling, throat swelling, tongue swelling or hives EXAM Physical Exam Const Vital Signs: 06/11/21 14:36 06/11/21 17:28 Temperature 97.3 F L Temperature Source Temporal Pulse Rate 94 93 Respiratory Rate 18 18 Blood Pressure 147/74 H 133/68 H Blood Pressure Mean 98 89 Pulse Ox 96 99 Oxygen Delivery Method Room Air Room Air Positive well nourished and well developed General Appearance ED: well developed and NAD HEENT Reports TM's clear and moist mucous membranes normocephalic and atraumatic; Negative for trauma or tenderness Tympanic Membrane ED: Yes TM's clear Eyes PERRL and EOMs intact bilaterally General Eye ED: Negative for pale conjunctiva or scleral icterus Neck no lymphadenopathy, supple and no JVD General: Negative for tenderness Chest Wall inspection of chest normal and palpation of chest normal Chest: Negative for tenderness Resp normal respiratory effort and clear to auscultation bilaterally Effort and Inspection: Negative for respiratory distress or pain with movement Auscultation: Negative for rhonchi, wheezes or diminished lung sounds Cardio regular rate, regular rhythm, S1 normal heart sound, S2 normal heart sound and no murmurs Peripheral Pulses: pulses 2+ throughout GI normal to inspection, nondistended, normoactive bowel sounds, soft to palpation, non-distended and no masses GI Narrative: Patient with diffuse tenderness on exam. Slightly hyperactive bowel sounds. Patient has guarding. There is no rebound or rigidity noted. Palpation: tender Back/Spine no CVA tenderness and no thoracic nor lumbar tenderness Extremity normal to inspection General Extremety ED: Negative for edema General Extremity: Negative for edema Neuro oriented x3, CN's II-XII intact bilaterally, no sensory deficits noted and gait normal Sensorium / Orientation: awake, alert, oriented to person, oriented to place and oriented to time Motor Exam: strength 5/5 throughout and strength abnormal Psych mental status grossly normal Skin no rashes or lesions noted and no wounds MDM MDM MDM Narrative Medical decision making narrative: IV line established on arrival. Patient was medicated morphine and Zofran. Patient had good pain relief. CT scan shows probable left lower quadrant small bowel obstruction. I recommended placing an NG however patient is refusing and states that she was been admitted in the past without NG and has done well with conservative measures. I discussed case with hospitalist will evaluate patient for admission. I was asked to consult general surgery as well. Lab Data Attestation: I reviewed the patient's lab results. Labs: Laboratory Results - last 24 hr 06/11/21 06/11/21 06/11/21 14:43 14:43 16:50 WBC 11.1 H RBC 3.92 L Hgb 12.3 Hct 37.7 MCV 96.2 MCH 31.4 MCHC 32.6 RDW Std Deviation 46.2 H RDW Coeff of Yariel 13.1 Plt Count 223 MPV 8.5 Immature Gran % (Auto) 0.400 Neut % (Auto) 88.5 H Lymph % (Auto) 5.4 L [place] % (Auto) 5.2 Eos % (Auto) 0.3 Baso % (Auto) 0.2 Absolute Neuts (auto) 9.8 H Absolute Lymphs (auto) 0.60 L Nucleated RBC % 0 Differential Comment COMMENT Sodium 141 Potassium 4.4 Chloride 109 H Carbon Dioxide 26.0 Anion Gap 6 BUN 31 H Creatinine 1.25 H Estim Creat Clear Calc 26.18 Est GFR (MDRD) Af Amer 53 L Est GFR (MDRD) Non-Af 44 L BUN/Creatinine Ratio 24.8 H Glucose 126 H Lactic Acid 0.8 Calcium 9.4 Urine Color Urine Clarity Urine pH Ur Specific [place] Urine Protein Urine Glucose (UA) Urine Ketones Urine Occult Blood Urine Nitrite Urine Bilirubin Urine Urobilinogen Ur Leukocyte Esterase Urine RBC Urine WBC Ur Squamous Epith Cells Urine Bacteria Urine Mucus 06/11/21 17:24 WBC RBC Hgb Hct MCV MCH MCHC RDW Std Deviation RDW Coeff of Yariel Plt Count MPV Immature Gran % (Auto) Neut % (Auto) Lymph % (Auto) [place] % (Auto) Eos % (Auto) Baso % (Auto) Absolute Neuts (auto) Absolute Lymphs (auto) Nucleated RBC % Differential Comment Sodium Potassium Chloride Carbon Dioxide Anion Gap BUN Creatinine Estim Creat Clear Calc Est GFR (MDRD) Af Amer Est GFR (MDRD) Non-Af BUN/Creatinine Ratio Glucose Lactic Acid Calcium Urine Color Yellow Urine Clarity Sl. Cloudy Urine pH 5.0 Ur Specific [place] 1.015 Urine Protein Negative Urine Glucose (UA) Normal Urine Ketones Negative Urine Occult Blood 50 H Urine Nitrite Negative Urine Bilirubin Negative Urine Urobilinogen Normal Ur Leukocyte Esterase 500 H Urine RBC 0-5 SEEN Urine WBC 10-25 SEEN Ur Squamous Epith Cells 0-5 SEEN Urine Bacteria 0 SEEN Urine Mucus 0 SEEN Radiography Diagnostic Testing: Radiology Impression Abdomen/Pelvis CT 06/11/21 16:26 IMPRESSION: Possible partial small bowel obstruction in the left lower quadrant but the transition point is not clearly identified. No ischemia or perforation. Electronically Signed: Kirby Elizabeth MD at 17:53 EDT Tel , Service support , Discharge Plan Triage Chief Complaint: Abd Pain ED Provider: eKly Joy Dx/Rx/DC Orders Clinical Impression: Bowel obstruction Prescriptions: No Action torsemide 20 MG tablet 10 mg PO DAILY RF: 0 spironolactone 25 MG tablet 25 mg PO BID RF: 0 aspirin 81 MG tablet,chewable 81 mg PO QHS RF: 0 montelukast 10 MG tablet 10 mg PO QHS RF: 0 albuterol sulfate 1 INHALER inhaler 2 puff INHALATION Q4H PRN PRN (Reason: Shortness Of Breath) RF: 0 omeprazole 40 MG capsule,delayed release(DR/EC) 40 mg PO DAILY PRN (Reason: stomach) RF: 0 budesonide-formoterol 160-4.5 mcg/actuation HFA aerosol inhaler 2 puff inhalation BID RF: 0 dipyridamole 75 MG tablet 75 mg PO BID RF: 0 losartan 25 MG tablet 12.5 - 25 mg PO DAILY RF: 0 fluconazole 150 mg tablet 150 mg PO .COMPLEX Qty: 2 RF: 0 Primary Care Provider: Julius Sandoval Referrals: Julius Sandoval MD [Primary Care Provider] - Disposition Disposition: Acute Care Hospital [facility]
[2021-06-11] MEDS: Ondansetron 4 MG/2 ML Vial IV ×2 (16:55→22:31)
[2021-06-11] MEDS: 0.9% Normal Saline 1,000 ML 125 ML IV (16:55)
[2021-06-11] MEDS: Morphine 2 MG/ML Syringe IV ×2 (16:55→22:30)
[2021-06-11 17:28] VITALS: BP 133/68; PULSE 93; RESP 18; O2SAT 99
[2021-06-11 17:29] LABS: Bacteria 0 SEEN /hpf (None Seen); Mucous, Urine 0 SEEN /hpf (<or=2+)
[2021-06-11 17:33] LABS: Color, Urine Yellow (Yellow); Glucose, Dipstick Normal (Normal); Ketone-Dipstick Negative (Negative); Leukocyte Esterase-Dipstick 500 /ul (Negative); Nitrite-Dipstick Negative (Negative); Occult Blood-Urine 50 /ul (Negative); Protein-Dipstick Negative (Negative); Specific Gravity, Urine 1.015 (1.002-1.030); Urine Bilirubin Dipstick Negative (Negative); Urine Clarity Sl. Cloudy (Clear); Urine Urobilinogen Normal (Normal)
[2021-06-11 17:34] LABS: Lactic Acid 0.8 mmol/L (0.4-1.9)
[2021-06-11 17:44] LABS: White Blood Cells 10-25 SEEN /hpf (0-5)
[2021-06-11 17:45] LABS: Red Blood Cells-Urine 0-5 SEEN /hpf (0-5); Squamous Epithelial Cells - UA 0-5 SEEN /hpf (5-10)
--- NOTE | 2021-06-11 18:26 | HP.PCM.HOS_ITS ---
HPI - General HPI Narrative WALT DONATO, is a 80 F with history of recurrent bowel obstruction after she had bowel perforation in 2014 for which she required resection and anastomosis in [facility] after that she had 3 bowel obstruction which resolved conservatively. Patient last admission was in 12/02-12/03 for partial small bowel obstruction. This time, she came with sudden onset of abdominal pain over upper abdomen and then became diffuse about 7 AM today. She had bowel movement before that. She had 1-2 times vomiting and could not tell me characteristics of that and she did not see it. She also had 2 watery bowel movement after that. She denied had any high fever or chills but he states she has history of asthma and wheezing and sometimes she feels hot and cold which is baseline for her. She also has a small superficial ulcer which is healing on right lower leg and her does dressing and she was in wound center. [facility] Medical History Bilateral lower extremity edema Broken heart syndrome Congestive heart failure Endometrial cancer History of breast cancer History of stroke Hypertension Laceration without foreign body, right lower leg, sequela Myocardial infarction PVD (peripheral vascular disease) Venous ulcer of left lower extremity with varicose veins Home Medications albuterol sulfate 2 puff INHALATION Q4H PRN PRN 03/20/15 [History Last Taken 11/30/20] aspirin 81 mg PO QHS 03/20/15 [History Last Taken 12/01/20] montelukast 10 mg PO QHS 03/20/15 [History Last Taken 12/01/20] spironolactone 25 mg PO DAILY 03/20/15 [History Last Taken 12/01/20] torsemide 10 mg PO DAILY 03/20/15 [History Last Taken 12/01/20] omeprazole 40 mg PO DAILY PRN 06/14/19 [History Last Taken 12/02/20] dipyridamole 75 mg PO BID 12/02/20 [History Last Taken 12/01/20] losartan 12.5 - 25 mg PO DAILY 12/02/20 [History Last Taken 12/01/20] budesonide-formoterol HFA 160 mcg-4.5 mcg/actuation aerosol inhaler 2 puff INHALATION BID 02/25/21 [History Last Taken Unknown] Allergy/AdvReac Type Severity Reaction Status Date / Time clarithromycin [From Biaxin] Allergy Fever Verified 06/11/21 14:37 diazepam [From Valium] Allergy seizures Verified 06/11/21 14:37 diphenhydramine HCl Allergy difficulty Verified 06/11/21 14:37 [From Benadryl] breathing esomeprazole magnesium Allergy chest pain Verified 06/11/21 14:37 [From Nexium] NSAIDS (Non-Steroidal Allergy Other Verified 06/11/21 14:37 Anti-Inflamma Penicillins Allergy Rash Verified 06/11/21 14:37 pentazocine lactate Allergy quit Verified 06/11/21 14:37 [From Talwin] breathing Sulfa (Sulfonamide Allergy Rash Verified 06/11/21 14:37 Antibiotics) sulfur dioxide Allergy massive Verified 06/11/21 14:37 headaches Family History Mother Cancer stomach throat Thyroid disorder Father Heart disease Surgical History H/O bilateral mastectomy H/O bilateral oophorectomy H/O dilation and curettage History of cholecystectomy History of colon surgery S/P RAFIA (total abdominal hysterectomy) Social History Smoking Status: Never smoker alcohol intake: never substance use type: does not use caffeine: Yes what type of physical activity do you participate in: walking and bicycling frequency: daily seatbelt use: always do you feel safe at home: Yes additional social history: Russell- Both are retired ROS ROS Narrative Constitutional: Denies high-grade fever. Mild chronic weakness. HEENT: Reports systems reviewed and no addt'l complaints, except as documented Respiratory/Chest: Denies chest pain, shortness of breath at rest or with exertion. Gastrointestinal: As mentioned in HPI Genitourinary: Denies burning urination or new urinary tract symptoms Musculoskeletal: Reports joint pain and limited range of motion Neurologic: Denies seizure-like activity skin: Small superficial ulcer in right lower leg. Endocrinology: Reports systems reviewed and no addt'l complaints, except as documented Hematologic/Lymphatic: Reports systems reviewed and no addt'l complaints, except as documented Rest 12 ROS are negative except as mentioned in HPI Vital Signs Vital Signs Vital Signs: 06/11/21 14:36 06/11/21 17:28 Temperature 97.3 F L Temperature Source Temporal Pulse Rate 94 93 Respiratory Rate 18 18 Blood Pressure 147/74 H 133/68 H Blood Pressure Mean 98 89 Pulse Ox 96 99 Oxygen Delivery Method Room Air Room Air Weight Weight: 132 lb Body Mass Index (BMI) 24.9 Physical Exam Narrative General: Alert, Oriented x3, Cooperative HEENT: Atraumatic, PERRLA, EOMI, Normocephalic Oral: No Gingival or Mucosal Lesions/ Ulcerations Neck: Supple, No JVD, Negative Carotid Bruits Lungs: Air entry equal in bilateral lung bases. No crepitation/rhonchi/wheezing Cardiovascular: Regular rate, Regular Rhythm, Normal S1, Normal S2, No murmurs Abdomen: Hypoactive bowel sounds. Mild deep tenderness over left lower quadrant. Mild predominantly distention upper abdomen. No palpable mass. : No renal angle tenderness. No suprapubic tenderness. Extremities: No edema, Capillary Refill Less than 3 Seconds Skin: Small, tiny ulcer over right lower leg, possible venous ulcer Musculoskeletal: No Tenderness to Palpation of Joints or Extremities Neurological: Cranial nerves II-XII grossly intact, DTR 2+/4 and Symmetrical, Neuro grossly intact Psych/Mental Status: Normal Affect, Appropriate. Results Lab / Micro Data Result Diagrams: 06/11/21 14:43 06/11/21 14:43 Labs: Laboratory Results - last 24 hr 06/11/21 14:43: WBC 11.1 H, RBC 3.92 L, Hgb 12.3, Hct 37.7, MCV 96.2, MCH 31.4, MCHC 32.6, RDW Std Deviation 46.2 H, RDW Coeff of Yariel 13.1, Plt Count 223, MPV 8.5, Immature Gran % (Auto) 0.400, Neut % (Auto) 88.5 H, Lymph % (Auto) 5.4 L, Harper % (Auto) 5.2, Eos % (Auto) 0.3, Baso % (Auto) 0.2, Absolute Neuts (auto) 9.8 H, Absolute Lymphs (auto) 0.60 L, Nucleated RBC % 0, Differential Comment COMMENT 06/11/21 14:43: Sodium 141, Potassium 4.4, Chloride 109 H, Carbon Dioxide 26.0, Anion Gap 6, BUN 31 H, Creatinine 1.25 H, Estim Creat Clear Calc 26.18, Est GFR (MDRD) Af Amer 53 L, Est GFR (MDRD) Non-Af 44 L, BUN/Creatinine Ratio 24.8 H, Glucose 126 H, Calcium 9.4 06/11/21 16:50: Lactic Acid 0.8 06/11/21 17:24: Urine Color Yellow, Urine Clarity Sl. Cloudy, Urine pH 5.0, Ur Specific [place] 1.015, Urine Protein Negative, Urine Glucose (UA) Normal, Urine Ketones Negative, Urine Occult Blood 50 H, Urine Nitrite Negative, Urine Bilirubin Negative, Urine Urobilinogen Normal, Ur Leukocyte Esterase 500 H, Urine RBC 0-5 SEEN, Urine WBC 10-25 SEEN, Ur Squamous Epith Cells 0-5 SEEN, Urine Bacteria 0 SEEN, Urine Mucus 0 SEEN Radiology Impression Abdomen/Pelvis CT 06/11/21 16:26 IMPRESSION: Possible partial small bowel obstruction in the left lower quadrant but the transition point is not clearly identified. No ischemia or perforation. Assessment & Plan Assessment/Plan (1) Partial small bowel obstruction: PLAN: 1. Partial small bowel obstruction: CT abdomen pelvis reviewed and shows small bowel of the left lower quadrant but transition point not clearly identified. WBC count on upper side of normal. Patient is being admitted to [facility] floor. I think currently patient is not vomiting and also patient does not want NG tube as she has difficulty in insertion in previous bowel obstruction. General surgery Dr. Ramírez is being consulted from ER. IV fluid Ringer lactate 75 mill per hour. Monitor intake and output. Patient was last admitted in November 2020 for similar partial small bowel obstruction. Serum magnesium and phosphorus are in normal range. 2. Hypertension: Blood pressure is normal. Hold losartan and spironolactone while patient is n.p.o. 3. Asthma/COPD, not in acute exacerbation: On bronchodilator as needed 4. CKD stage IIIb: Patient estimated creatinine clearance is 26 mils per minute. Creatinine 1.25. Of previous creatinine was 1.79 in January 2021 and 1.1 in November 2020. 5. Mild to moderate CAD/chronic CHF stable: As patient is n.p.o. we will hold her cardiac medications. Does not have chest pain or shortness of breath. She did not require cardiac stent, pacemaker or defibrillator. She follows Dr. Vivas in [place]. 6. DVT PPx-Lovenox 30 minutes subcu daily Living will/advanced directive/end of life care: Patient does have living will or advanced directive. Her is power of family law attorney for health. After discussion of benefits/risks procedures involved with full code, DNR CC arrest and DNR CC, the patient said she never discussed or thought about the CODE STATUS. For now, she elected full code. Patient does want artificial life support including intubation, tube feed, ventilator and/chest compression, central venous catheter, vasopressor and DC shock if needed Total time spent in [id number] encounter in discussion of advanced directi ve 16 minutes. Laboratory Results 06/11/21 14:43: WBC 11.1 H, RBC 3.92 L, Hgb 12.3, Hct 37.7, MCV 96.2, MCH 31.4, MCHC 32.6, RDW Std Deviation 46.2 H, RDW Coeff of Yariel 13.1, Plt Count 223, MPV 8.5, Immature Gran % (Auto) 0.400, Neut % (Auto) 88.5 H, Lymph % (Auto) 5.4 L, Harper % (Auto) 5.2, Eos % (Auto) 0.3, Baso % (Auto) 0.2, Absolute Neuts (auto) 9.8 H, Absolute Lymphs (auto) 0.60 L, Nucleated RBC % 0, Differential Comment COMMENT 06/11/21 14:43: Sodium 141, Potassium 4.4, Chloride 109 H, Carbon Dioxide 26.0, Anion Gap 6, BUN 31 H, Creatinine 1.25 H, Estim Creat Clear Calc 26.18, Est GFR (MDRD) Af Amer 53 L, Est GFR (MDRD) Non-Af 44 L, BUN/Creatinine Ratio 24.8 H, Glucose 126 H, Calcium 9.4 06/11/21 14:43: Phosphorus 3.4, Magnesium 2.5 06/11/21 16:50: Lactic Acid 0.8 06/11/21 17:24: Urine Color Yellow, Urine Clarity Sl. Cloudy, Urine pH 5.0, Ur Specific [place] 1.015, Urine Protein Negative, Urine Glucose (UA) Normal, Urine Ketones Negative, Urine Occult Blood 50 H, Urine Nitrite Negative, Urine Bilirub in Negative, Urine Urobilinogen Normal, Ur Leukocyte Esterase 500 H, Urine RBC 0-5 SEEN, Urine WBC 10-25 SEEN, Ur Squamous Epith Cells 0-5 SEEN, Urine Bacteria 0 SEEN, Urine Mucus 0 SEEN Charges/Coding Visit Charges Inpatient E&M: 58063 Init Hosp L3 Procedures Hospitalists Procedures: 14821 Advncd Care Plan 30 Min
--- NOTE | 2021-06-11 18:35 | EKG12_ITS ---
Test Reason : DYSRHYTHMIA Blood Pressure : / mmHG Vent. Rate : 081 BPM Atrial Rate : 081 BPM P-R Int : 178 ms QRS Dur : 076 ms QT Int : 394 ms P-R-T Axes : 073 -49 039 degrees QTc Int : 457 ms Normal sinus rhythm Low voltage QRS Left anterior fascicular block Abnormal ECG Confirmed by MARANDA HSIEH, CAMDEN ([id number]), technical writer and editor ROB FUENTES ([id number]) on 06/14/2021 11:37:28 AM Referred By: POP Confirmed By:CAMDEN LOW MD
[2021-06-11 19:07] LABS: Magnesium 2.5 mg/dL (1.6-2.6); Phosphorus 3.4 mg/dL (2.5-4.9)
[2021-06-11] MEDS: Lactated Ringers 1,000 ML 75 ML IV (19:49)
[2021-06-11] MEDS: Midazolam 2 MG/2 ML Syringe IV (20:34)
[2021-06-11 20:45] VITALS: PULSE 89; RESP 16; O2SAT 94
--- NOTE | 2021-06-11 20:50 | RAD_ITS ---
STUDY: X-RAY - ABDOMEN/PELVIS REASON FOR EXAM: Female, 80 years old. NG placement TECHNIQUE: KUB. COMPARISON: None. FINDINGS: Lung bases are clear. Nasogastric tube terminates in the stomach with the side-port in the gastric cardia. There is a non-obstructive bowel gas pattern. Soft tissues and bony structures are unremarkable. RAD/Abdomen Single View (Portable) IMPRESSION: NG tube terminates in the stomach. Electronically Signed: Isabel Wick MD at 22:44 EDT Tel , Service support ,
--- NOTE | 2021-06-11 20:55 | EX.PCM.CON.S ---
Assessment & Plan Assessment/Plan (1) Partial small bowel obstruction: PLAN: This is an 80-year-old female with complex past medical and past surgical histories who presents with signs and symptoms of a small bowel obstruction. An independent review of her CT imaging, there is fecalization of her small bowel with a transition zone in the left lower quadrant. This is also the side of some localized tenderness on exam. Biochemically she does have a leukocytosis with left shift. Given her extensive surgical history, I would like to proceed conservatively if possible. With further discussion, Mrs. Calvert is willing to undergo placement of a nasogastric tube. I would like to connect her to suction for 12 to 24 hours before initiating a Gastrografin series. If this contrast fails to transit the small bowel, she may require an operation. I have informed her that given her present distention, she would require an open operation and decompression with nasogastric tube may afford consideration of a laparoscopic attempt. Recommend: ?N.p.o. ?NG tube to low wall intermittent suction ?Daily labs including lytes and CBC ?Please notify surgery of any acute changes in her clinical course, I will plan to follow with serial abdominal exams and tentatively plan for a Gastrografin series tomorrow HPI Consult Data Date of Consult: 06/11/21 HPI Narrative HPI Narrative: WALT CALVERT, is a 80 F who presents to [facility] with a 12-hour history of obstructive symptomology including some nausea, vomiting, and abdominal pain. She states prior to 7 AM she experienced a normal bowel movement. She has an extensive history of small bowel obstructions (she estimates at least 5 since a emergency surgery in 2014 occasioned by diagnosis of ischemic colitis). She states the current episode feels similar to these prior episodes, however, she believes she has more pain currently. CT of the abdomen and pelvis was done and shows dilated loops of small bowel proximally with no clear transition zone. Biochemically the patient does have a mild leukocytosis of 11,000 with a left shift but her lactate was within normal limits at 0.8. Patient initially declined nasogastric tube insertion due to bad experiences previously and persistent fever/anxiety. Patient has complex past medical and past surgical histories. Concerning her surgical history she states she underwent a total abdominal hysterectomy with bilateral salpingo-oophorectomy, open cholecystectomy and an exploratory surgery for vaginal prolapse in her 20s. Then in 2014 Mrs. Calvert was emergently transferred to the [facility] for a diagnosis of ischemic colitis. Per her report a section of small bowel was removed, after a telephone conversation with patient's daughter, Bruna Dey, she believes this was actually colon that was segmentally removed. [facility] Medical History Bilateral lower extremity edema Broken heart syndrome Congestive heart failure Endometrial cancer History of breast cancer History of stroke Hypertension Laceration without foreign body, right lower leg, sequela Myocardial infarction PVD (peripheral vascular disease) Venous ulcer of left lower extremity with varicose veins Home Medications albuterol sulfate 2 puff INHALATION Q4H PRN PRN 03/20/15 [History Last Taken 11/30/20] aspirin 81 mg PO QHS 03/20/15 [History Last Taken 12/01/20] montelukast 10 mg PO QHS 03/20/15 [History Last Taken 12/01/20] spironolactone 25 mg PO DAILY 03/20/15 [History Last Taken 12/01/20] torsemide 10 mg PO DAILY 03/20/15 [History Last Taken 12/01/20] omeprazole 40 mg PO DAILY PRN 06/14/19 [History Last Taken 12/02/20] dipyridamole 75 mg PO BID 12/02/20 [History Last Taken 12/01/20] losartan 12.5 - 25 mg PO DAILY 12/02/20 [History Last Taken 12/01/20] budesonide-formoterol HFA 160 mcg-4.5 mcg/actuation aerosol inhaler 2 puff INHALATION BID 02/25/21 [History Last Taken Unknown] Allergy/AdvReac Type Severity Reaction Status Date / Time clarithromycin [From Biaxin] Allergy Fever Verified 06/11/21 14:37 diazepam [From Valium] Allergy seizures Verified 06/11/21 14:37 diphenhydramine HCl Allergy difficulty Verified 06/11/21 14:37 [From Benadryl] breathing esomeprazole magnesium Allergy chest pain Verified 06/11/21 14:37 [From Nexium] NSAIDS (Non-Steroidal Allergy Other Verified 06/11/21 14:37 Anti-Inflamma Penicillins Allergy Rash Verified 06/11/21 14:37 pentazocine lactate Allergy quit Verified 06/11/21 14:37 [From Talwin] breathing Sulfa (Sulfonamide Allergy Rash Verified 06/11/21 14:37 Antibiotics) sulfur dioxide Allergy massive Verified 06/11/21 14:37 headaches Family History Mother Cancer stomach throat Thyroid disorder Father Heart disease Surgical History H/O bilateral mastectomy H/O bilateral oophorectomy H/O dilation and curettage History of cholecystectomy History of colon surgery S/P RAFIA (total abdominal hysterectomy) Social History Smoking Status: Never smoker alcohol intake: never substance use type: does not use caffeine: Yes what type of physical activity do you participate in: walking and bicycling frequency: daily seatbelt use: always do you feel safe at home: Yes additional social history: Russell- Both are retired Physical Exam Const alert and oriented x3 General Appearance: frail Nutritional Appearance: thin GI Inspection: abdominal distention and scar Palpation: soft, tender LLQ and guarding LLQ (voluntary) Lab / Micro Data Result Diagrams: 06/11/21 14:43 06/11/21 14:43 Labs: Laboratory Results - last 24 hr 06/11/21 14:43: WBC 11.1 H, RBC 3.92 L, Hgb 12.3, Hct 37.7, MCV 96.2, MCH 31.4, MCHC 32.6, RDW Std Deviation 46.2 H, RDW Coeff of Yariel 13.1, Plt Count 223, MPV 8.5, Immature Gran % (Auto) 0.400, Neut % (Auto) 88.5 H, Lymph % (Auto) 5.4 L, [place] % (Auto) 5.2, Eos % (Auto) 0.3, Baso % (Auto) 0.2, Absolute Neuts (auto) 9.8 H, Absolute Lymphs (auto) 0.60 L, Nucleated RBC % 0, Differential Comment COMMENT 06/11/21 14:43: Sodium 141, Potassium 4.4, Chloride 109 H, Carbon Dioxide 26.0, Anion Gap 6, BUN 31 H, Creatinine 1.25 H, Estim Creat Clear Calc 26.18, Est GFR (MDRD) Af Amer 53 L, Est GFR (MDRD) Non-Af 44 L, BUN/Creatinine Ratio 24.8 H, Glucose 126 H, Calcium 9.4 06/11/21 14:43: Phosphorus 3.4, Magnesium 2.5 06/11/21 16:50: Lactic Acid 0.8 06/11/21 17:24: Urine Color Yellow, Urine Clarity Sl. Cloudy, Urine pH 5.0, Ur Specific [place] 1.015, Urine Protein Negative, Urine Glucose (UA) Normal, Urine Ketones Negative, Urine Occult Blood 50 H, Urine Nitrite Negative, Urine Bilirubin Negative, Urine Urobilinogen Normal, Ur Leukocyte Esterase 500 H, Urine RBC 0-5 SEEN, Urine WBC 10-25 SEEN, Ur Squamous Epith Cells 0-5 SEEN, Urine Bacteria 0 SEEN, Urine Mucus 0 SEEN Radiology Impression Abdomen/Pelvis CT 06/11/21 16:26 IMPRESSION: Possible partial small bowel obstruction in the left lower quadrant but the transition point is not clearly identified. No ischemia or perforation. Electronically Signed: Kirby Elizabeth MD at 17:53 EDT Tel , Service support , Charges/Coding Visit Charges Inpatient E&M: 78839 Init Hosp L2
[2021-06-11 22:12] VITALS: BMI 27.2
[2021-06-11 22:30] VITALS: PULSE 85
[2021-06-11] MEDS: 0.9% Saline Lock 10 ML Syringe IV (22:31)
[2021-06-11] MEDS: Enoxaparin 30 MG/0.3 ML Syringe SC (22:53)
[2021-06-11 22:59] VITALS: BP 134/60; PULSE 80; RESP 18; TEMP 36.8; O2SAT 94
[2021-06-12] VITALS (14 sets, daily range): BP systolic 99–137; BP diastolic 48–89; PULSE 80–93; RESP 12–18; TEMP 37–37.6; O2SAT 93–95
--- NOTE | 2021-06-12 01:18 | PCS.PANDOC ---
PANDEMIC DOCUMENTATION INITIATED: Date: 05/03/2021 Time: 190
[2021-06-12] MEDS: Morphine 2 MG/ML Syringe IV (02:47)
[2021-06-12] MEDS: proCHLORPERazine 10 MG/2 ML Vial 5 MG IM (02:47)
[2021-06-12 06:40] LABS: Absolute Lymphocyte Count 0.34 X10^3/uL (0.83-4.51); Absolute Neutrophil Count 8.8 X10^3/uL (2.0-7.7); Basophil# 0.01 X10^3/uL; Basophil% 0.1 % (0-1); Eosinophil# 0.02 X10^3/uL; Eosinophils% 0.2 % (0-5); Hematocrit 34.6 % (37-47); Hemoglobin 10.9 g/dL (12.0-15.0); Lymphocyte # 0.34 X10^3/ul (0.83-4.51); Lymphocyte % 3.5 % (19-41); Mean Corp Hgb Conc 31.5 g/dL (32-36); Mean Corpuscular Hgb 30.8 pg (27.0-32.0); Mean Corpuscular Volume 97.7 fL (81-99); Mean Platelet Vol. 8.5 fl (6.2-12.0); Monocyte# 0.48 X10^3/uL; NRBC Flagged by Analyzer 0 % (0-5); Neutrophil # 8.82 X10^3/uL (2.7-7.7); Neutrophil % 91.1 % (47-70); POSITIVE DIFFERENTIAL YES; Platelet Count 199 K/mm3 (150-450); RBC Distribution Width SD 46.4 fl (35.1-43.9); Red Blood Count 3.54 M/mm3 (4.2-5.4); White Blood Count 9.7 K/mm3 (4.4-11.0)
[2021-06-12 06:44] LABS: Differential Indicated SCAN CRITERIA MET
[2021-06-12 07:02] LABS: Anion Gap 5 (5-15); BUN 22 mg/dL (7-18); BUN/Creat Ratio 21.6 RATIO (10-20); Calcium,Total 8.8 mg/dL (8.5-10.1); Chloride 112 mmol/L (98-107); Creatinine, Serum 1.02 mg/dL (0.55-1.02); EST Glomerular Filtration Rate 55 mL/min (>60); Est Glom Filt Rate - Afr Amer 67 mL/min (>60); Estimated Creatinine Clearance 30.54 ml/min; Glucose 123 mg/dL (74-106); Potassium 3.8 mmol/L (3.5-5.1); Sodium Level 142 mmol/L (136-145)
[2021-06-12 07:22] LABS: Differential Comment SCANNED
[2021-06-12] MEDS: Albuterol 2.5 MG/3 ML VIAL.NEB. INHALATION ×3 (07:48→19:03)
[2021-06-12] MEDS: Budesonide Respules 0.5 MG/2 ML AMPUL.NEB. INHALATION ×2 (07:49→19:03)
--- NOTE | 2021-06-12 09:45 | PCM.PN.SRG ---
Subjective Subjective Patient was seen and examined during AM rounds. She reports that she is feeling better on all accounts. She denies any persistent nausea. She states that her abdomen feels less distended and there is much less pain in her left lower quadrant. However, she does deny passage of any flatus or bowel movements. Objective Data Objective Data Vital Signs: Vital Signs Temp Pulse Resp BP Pulse Ox 99.7 F H 80 12 137/54 H 93 06/12/21 02:57 06/12/21 07:59 06/12/21 07:49 06/12/21 02:57 06/12/21 07:49 Oxygen Delivery Method Room Air Weight: 141 lb 5.061 oz Body Mass Index (BMI) 27.2 Intake & Output: Intake and Output for Last 24 Hours 06/10/21 06/11/21 06/12/21 23:59 23:59 23:59 Intake Total 635.42 / 635.42 Output Total 150 / 150 800 / 800 Balance 485.42 / 485.42 -800 / -800 Lab / Micro Data Result Diagrams: 06/12/21 06:15 06/12/21 06:15 Labs: Laboratory Results - last 24 hr 06/11/21 14:43: WBC 11.1 H, RBC 3.92 L, Hgb 12.3, Hct 37.7, MCV 96.2, MCH 31.4, MCHC 32.6, RDW Std Deviation 46.2 H, RDW Coeff of Yariel 13.1, Plt Count 223, MPV 8.5, Immature Gran % (Auto) 0.400, Neut % (Auto) 88.5 H, Lymph % (Auto) 5.4 L, [place] % (Auto) 5.2, Eos % (Auto) 0.3, Baso % (Auto) 0.2, Absolute Neuts (auto) 9.8 H, Absolute Lymphs (auto) 0.60 L, Nucleated RBC % 0, Differential Comment COMMENT 06/11/21 14:43: Sodium 141, Potassium 4.4, Chloride 109 H, Carbon Dioxide 26.0, Anion Gap 6, BUN 31 H, Creatinine 1.25 H, Estim Creat Clear Calc 26.18, Est GFR (MDRD) Af Amer 53 L, Est GFR (MDRD) Non-Af 44 L, BUN/Creatinine Ratio 24.8 H, Glucose 126 H, Calcium 9.4 06/11/21 14:43: Phosphorus 3.4, Magnesium 2.5 06/11/21 16:50: Lactic Acid 0.8 06/11/21 17:24: Urine Color Yellow, Urine Clarity Sl. Cloudy, Urine pH 5.0, Ur Specific [place] 1.015, Urine Protein Negative, Urine Glucose (UA) Normal, Urine Ketones Negative, Urine Occult Blood 50 H, Urine Nitrite Negative, Urine Bilirubin Negative, Urine Urobilinogen Normal, Ur Leukocyte Esterase 500 H, Urine RBC 0-5 SEEN, Urine WBC 10-25 SEEN, Ur Squamous Epith Cells 0-5 SEEN, Urine Bacteria 0 SEEN, Urine Mucus 0 SEEN 06/12/21 06:15: WBC 9.7, RBC 3.54 L, Hgb 10.9 L, Hct 34.6 L, MCV 97.7, MCH 30.8, MCHC 31.5 L, RDW Std Deviation 46.4 H, RDW Coeff of Yariel 13.0, Plt Count 199, MPV 8.5, Immature Gran % (Auto) 0.100, Neut % (Auto) 91.1 H, Lymph % (Auto) 3.5 L, [place] % (Auto) 5.0, Eos % (Auto) 0.2, Baso % (Auto) 0.1, Absolute Neuts (auto) 8.8 H, Absolute Lymphs (auto) 0.34 L, Nucleated RBC % 0, Differential Comment SCANNED 06/12/21 06:15: Sodium 142, Potassium 3.8, Chloride 112 H, Carbon Dioxide 25.0, Anion Gap 5, BUN 22 H, Creatinine 1.02, Estim Creat Clear Calc 30.54, Est GFR (MDRD) Af Amer 67, Est GFR (MDRD) Non-Af 55 L, BUN/Creatinine Ratio 21.6 H, Glucose 123 H, Calcium 8.8 Radiography Diagnostic Testing: Radiology Impression Abdomen/Pelvis CT 06/11/21 16:26 IMPRESSION: Possible partial small bowel obstruction in the left lower quadrant but the transition point is not clearly identified. No ischemia or perforation. Electronically Signed: Kirby Elizabeth MD at 17:53 EDT Tel , Service support , KUB X-Ray 06/11/21 20:50 IMPRESSION: NG tube terminates in the stomach. Electronically Signed: Isabel Wick MD at 22:44 EDT Tel , Service support , Physical Exam Const oriented x3 and no apparent distress Resp normal respiratory effort GI soft to palpation GI Narrative: Mildly distended (improved from presentation) and minimally tender in the left lower quadrant with deep palpation. Assessment & Plan Assessment/Plan (1) Small bowel obstruction: PLAN: Patient is hospital day 1 for admission for small bowel obstruction. She is reporting significant symptomatic improvement after decompression with her nasogastric tube. Nursing reported a total overnight drainage of 500 mL of bilious material. On my exam this morning patient's nasogastric tube was not suctioning with intermittent wall suction in the sump port was clogged and kinked. The nurse was called to the room and these issues were addressed. It does not appear that her wall suction regulator is working at the intermittent mode so she has been placed to low continuous suction until the new regulator can be obtained. Patient is still not having any bowel function so I would like to continue suction until approximately noon time when we can perform a Gastrografin study. Charges/Coding Visit Charges Inpatient E&M: 60074 Init Hosp L2
[2021-06-12] MEDS: Lactated Ringers 1,000 ML 75 ML IV (11:07)
[2021-06-12] MEDS: Enoxaparin 30 MG/0.3 ML Syringe SC (11:09)
--- NOTE | 2021-06-12 13:00 | CASEMGMT ---
BRADEN CHEUNG assessment: Face to Face with patient for initial transition planning/care coordination assessment. BRADEN CHEUNG introduced self and role at [facility], pt voices understanding and consents to assessment. Pt is sitting up in bed in no distress. Pt is A/Ox4 and answers all questions appropriately. Care providers, pharmacy, and demographics verified. Presentation: Pt c/o abd pain, N/V since 0700. Hx bowel obstruction Admitting dx: SBO [facility] Special[facility]: Cardio at [facility] in [place]; Bertram Gout at [facility] [place] Insurance: [email or web address] Prescription Benefit: MMOMCR Living Will/HPOA: Pt states has LW/HPOA and is aware that they are not on file at [facility]. Pt states her , Russell Calvert, is HPOA. LNOK: Russell Calvert, ; Judith Valle, daughter Living Arrangements: Pt states lives with in 1 story home and states no concerns at home. Pt states is independent with ADL's. Transportation: Pt states drives self and states no transportation concerns. DME/HHC: Pt states has a nebulizer but denies need for any further DME. Pt states no hx of HHC or SNF in the past. Pt states no concerns with going home at time of discharge. Pt is retired. Pt states does not smoke cigarettes or drink ETOH. Pt states no further concerns/needs. CM to follow for any further discharge planning/needs. Advised pt to ask for CM if any further questions/concerns/needs arise, voices understanding. Pt Goal: [place] BRADEN CHEUNG
--- NOTE | 2021-06-12 17:08 | PCM.PN.HOSP ---
Subjective Subjective Patient was seen and examined today, I talked briefly with surgery about her care, they are planning on repeating a KUB with Gastrografin later on today. Objective Data Objective Data Vital Signs: Vital Signs Temp Pulse Resp BP Pulse Ox 98.6 F 85 18 127/52 H 93 06/12/21 14:50 06/12/21 16:01 06/12/21 14:50 06/12/21 14:50 06/12/21 14:50 Oxygen Delivery Method Room Air Weight: 64.1 kg Body Mass Index (BMI) 27.2 Intake & Output: Intake and Output for Last 24 Hours 06/10/21 06/11/21 06/12/21 23:59 23:59 23:59 Intake Total 635.42 / 635.42 1030 / 1030 Output Total 150 / 150 1110 / 1110 Balance 485.42 / 485.42 -80 / -80 Lab / Micro Data Result Diagrams: 06/12/21 06:15 06/12/21 06:15 Labs: Laboratory Results - last 24 hr 06/11/21 14:43: Phosphorus 3.4, Magnesium 2.5 06/11/21 16:50: Lactic Acid 0.8 06/11/21 17:24: Urine Color Yellow, Urine Clarity Sl. Cloudy, Urine pH 5.0, Ur Specific [place] 1.015, Urine Protein Negative, Urine Glucose (UA) Normal, Urine Ketones Negative, Urine Occult Blood 50 H, Urine Nitrite Negative, Urine Bilirubin Negative, Urine Urobilinogen Normal, Ur Leukocyte Esterase 500 H, Urine RBC 0-5 SEEN, Urine WBC 10-25 SEEN, Ur Squamous Epith Cells 0-5 SEEN, Urine Bacteria 0 SEEN, Urine Mucus 0 SEEN 06/12/21 06:15: WBC 9.7, RBC 3.54 L, Hgb 10.9 L, Hct 34.6 L, MCV 97.7, MCH 30.8, MCHC 31.5 L, RDW Std Deviation 46.4 H, RDW Coeff of Yariel 13.0, Plt Count 199, MPV 8.5, Immature Gran % (Auto) 0.100, Neut % (Auto) 91.1 H, Lymph % (Auto) 3.5 L, [place] % (Auto) 5.0, Eos % (Auto) 0.2, Baso % (Auto) 0.1, Absolute Neuts (auto) 8.8 H, Absolute Lymphs (auto) 0.34 L, Nucleated RBC % 0, Differential Comment SCANNED 06/12/21 06:15: Sodium 142, Potassium 3.8, Chloride 112 H, Carbon Dioxide 25.0, Anion Gap 5, BUN 22 H, Creatinine 1.02, Estim Creat Clear Calc 30.54, Est GFR (MDRD) Af Amer 67, Est GFR (MDRD) Non-Af 55 L, BUN/Creatinine Ratio 21.6 H, Glucose 123 H, Calcium 8.8 Radiography Diagnostic Testing: Radiology Impression Abdomen/Pelvis CT 06/11/21 16:26 IMPRESSION: Possible partial small bowel obstruction in the left lower quadrant but the transition point is not clearly identified. No ischemia or perforation. Electronically Signed: Kirby Elizabeth MD at 17:53 EDT Tel , Service support , KUB X-Ray 06/11/21 20:50 IMPRESSION: NG tube terminates in the stomach. Electronically Signed: Isabel Wick MD at 22:44 EDT Tel , Service support , Physical Exam Const alert, oriented x3, no apparent distress and healthy appearing General Appearance: cooperative, well kempt and well developed Orientation / Consciousness: awake, oriented to person, oriented to place and oriented to time HEENT normocephalic, head/scalp atraumatic and moist oral mucous membranes Head and Scalp: normocephalic Eyes PERRL, EOMs intact bilaterally and conjunctivae normal Neck nuchal rigidity, supple, no JVD, thyroid normal and no carotid bruits General: trachea midline Resp normal respiratory effort, no retractions, no use of accessory muscles and clear to auscultation bilaterally Auscultation: Negative for rales, rhonchi or wheezes Cardio regular rate, regular rhythm, S1 normal heart sound, S2 normal heart sound, no murmurs, no rub and no gallops GI soft to palpation and non-tender GI Narrative: Abdomen is mildly distended at the time of my exam Auscultation: hypoactive bowel sounds Extremity no clubbing, cyanosis or edema Skin no rashes or lesions noted General Skin Exam: no breakdown Neuro oriented x3, CN's II-XII intact bilaterally, no focal motor deficits and no sensory deficits noted Sensorium / Orientation: awake and alert Speech: speech normal Psych thought process normal and affect normal Assessment & Plan Assessment/Plan (1) Partial small bowel obstruction: PLAN: 1. Partial small bowel obstruction left lower quadrant-treatment per Dr. Ramírez #2 essential hypertension-patient's blood pressure is stable at this time #3 COPD #4 chronic kidney disease stage IIIa #5 coronary artery disease #6 cerebrovascular disease-patient's aspirin and Persantine are being held at this time due to the presence of an NG tube Charges/Coding Visit Charges Inpatient E&M: 38323 Subs Hosp L2
--- NOTE | 2021-06-12 18:00 | RAD_ITS ---
STUDY: X-RAY - ABDOMEN/PELVIS REASON FOR EXAM: Female, 80 years old. Small bowel obstruction follow-up TECHNIQUE: Single AP view of the abdomen / pelvis. COMPARISON: 06/11/2021 FINDINGS: Esophagogastric tube extends to the stomach. Passage of bowel contrast into the colon. No dilated loops of small bowel. There is no demonstrated free abdominal air. The visualized liver, spleen and kidneys are grossly normal in size and morphology. Normal soft tissue structures. There are diffuse degenerative changes of the visualized lumbar spine. RAD/Abdomen Single View (Portable) IMPRESSION: 1. Nonobstructive bowel gas pattern. Expected passage of bowel contrast into the colon. Electronically Signed: Alrfed Perez MD ([place]) at 19:15 EDT , Service support ,
[2021-06-13] VITALS (7 sets, daily range): BP systolic 118–134; BP diastolic 48–49; PULSE 79–90; RESP 12–18; TEMP 36.7–37.1; O2SAT 95–98
--- NOTE | 2021-06-13 | RAD_ITS ---
STUDY: X-RAY - ABDOMEN/PELVIS REASON FOR EXAM: Female, 80 years old. Follow-up small bowel obstruction and Gastrografin TECHNIQUE: Single AP view of the abdomen / pelvis. COMPARISON: 06/12/2021 at 1749 FINDINGS: A nasogastric tube with the tip in the left upper quadrant likely in the body the stomach which is unchanged. There is an unremarkable bowel gas pattern. Oral contrast throughout the colon. The visualized liver, spleen and kidneys are grossly normal in size and morphology. Normal soft tissue structures. Normal visualized osseous structures. RAD/Abdomen Single View (Portable) IMPRESSION: 1. Nasogastric tube with the tip likely in the body the stomach. 2. No bowel obstruction with oral contrast throughout the colon. Electronically Signed: Kirby Elizabeth MD at 8:22 EDT Tel , Service support ,
[2021-06-13] MEDS: 0.9% Saline Lock 10 ML Syringe IV (01:05)
[2021-06-13] MEDS: Budesonide Respules 0.5 MG/2 ML AMPUL.NEB. INHALATION (06:51)
[2021-06-13] MEDS: Albuterol 2.5 MG/3 ML VIAL.NEB. INHALATION ×2 (06:51→13:34)
[2021-06-13] MEDS: Enoxaparin 30 MG/0.3 ML Syringe SC (08:01)
--- NOTE | 2021-06-13 13:08 | PCM.PN.SRG ---
Subjective Subjective Patient seen and examined during morning rounds. I was called even prior to rounds by the nurse stating that patient had 4 bowel movements and requested removal of NG tube and advancement of diet. During her history Ms. Calvert confirmed this report and states that she feels well but is beginning to feel weak without oral intake. We also discussed that she will need to stay better hydrated to avoid this issue given the presence of fecalization of her small bowel on intake imaging. She expresses concern about being able to do this given her fluid restrictions from cardiology for her diagnosis of CHF. Objective Data Objective Data Vital Signs: Vital Signs Temp Pulse Resp BP Pulse Ox 98.8 F 79 18 120/49 L 97 06/13/21 10:51 06/13/21 10:51 06/13/21 10:51 06/13/21 10:51 06/13/21 10:51 Oxygen Delivery Method Room Air Weight: 137 lb 5.568 oz Body Mass Index (BMI) 27.2 Intake & Output: Intake and Output for Last 24 Hours 06/11/21 06/12/21 06/13/21 23:59 23:59 23:59 Intake Total 635.42 / 635.42 1030 / 1030 1000 / 1000 Output Total 150 / 150 1300 / 1550 550 / 550 Balance 485.42 / 485.42 -270 / -520 450 / 450 Lab / Micro Data Result Diagrams: 06/12/21 06:15 06/12/21 06:15 Radiography Diagnostic Testing: Radiology Impression KUB X-Ray 06/12/21 18:00 IMPRESSION: 1. Nonobstructive bowel gas pattern. Expected passage of bowel contrast into the colon. Electronically Signed: Alfred Perez MD ([place]) at 19:15 EDT , Service support , KUB X-Ray 06/13/21 00:00 IMPRESSION: 1. Nasogastric tube with the tip likely in the body the stomach. 2. No bowel obstruction with oral contrast throughout the colon. Electronically Signed: Kirby Elizabeth MD at 8:22 EDT Tel , Service support , Physical Exam Const oriented x3 and no apparent distress Resp normal respiratory effort GI GI Narrative: Soft, nontender, minimal to no abdominal distention Assessment & Plan Assessment/Plan (1) Small bowel obstruction: PLAN: Patient is hospital day 2 for admission for small bowel obstruction. She successfully passed a Gastrografin challenge yesterday and has had multiple bowel movements since that time. She is now requesting a diet. Recommend: ?Discontinuation of nasogastric tube ?Initiation of full liquid diet ?If patient tolerates the above, advancement to a soft, low residue diet. If patient tolerates this, she would be eligible for discharge to home. 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 I am concerned dehydration played into the current obstruction based on the presence of fecalization of her small bowel without a discrete transition point. Charges/Coding Visit Charges Inpatient E&M: 89179 Subs Hosp L2
--- NOTE | 2021-06-13 15:20 | PCM.DC ---
Discharge Instructions Diet Discharge Diet: No restrictions Activity Discharge Activity: Return to Normal Activity Weight Bearing Status: Full weight bearing Follow Up Care Test Results: Test results from this visit will be discussed in further detail at your follow-up appointment, if applicable. Discharge Plan Admission Admit Date/Time: 06/11/21 18:19 Primary Reason for Your Visit: small bowel obstruction Attending Provider: Julius Fabian Primary Care Provider: Julius Sandoval Consulting Providers: Sumit Ramírez Discharge Orders/Prescriptions Prescriptions: Continued torsemide 20 MG tablet 10 mg PO DAILY RF: 0 spironolactone 25 MG tablet 25 mg PO DAILY RF: 0 aspirin 81 MG tablet,chewable 81 mg PO QHS RF: 0 montelukast 10 MG tablet 10 mg PO QHS RF: 0 albuterol sulfate 1 INHALER inhaler 2 puff INHALATION Q4H PRN PRN (Reason: Shortness Of Breath) RF: 0 omeprazole 40 MG capsule,delayed release(DR/EC) 40 mg PO PRN PRN (Reason: stomach) RF: 0 budesonide-formoterol 160-4.5 mcg/actuation HFA aerosol inhaler 2 puff inhalation BID RF: 0 dipyridamole 75 MG tablet 75 mg PO BID RF: 0 losartan 25 MG tablet 12.5 - 25 mg PO DAILY RF: 0 Referrals / Follow Up: Sumit Ramírez MD [STAFF PHYSICIAN] - Within 2 Weeks Julius Sandoval MD [Primary Care Provider] - See Referral Note (in 2-3 weeks) Disposition Disposition (needs filled in before D/C Order can be placed): Home, Self Care
--- NOTE | 2021-06-13 18:14 | PCM.DC.SUM ---
Providers Date of Admission: 06/11/21 Date of Discharge: 06/13/21 Primary Care Physician: Dr. Julius Sandoval MD Consultations 06/11/21 19:24 Consult: General Surgery Routine Consulting Provider: Sumit Ramírez Reason for Consult: Partial small bowel obstruction. EMERGENT Consult: No MD Notified: Yes Date Notified: 06/11/21 Time Notified: 18:30 Method of Notification: Verbal Reason For Visit: PARTIAL SBO Diagnosis Discharge Diagnosis (1) Small bowel obstruction: Status: Acute Code(s): K56.609 - Unspecified intestinal obstruction, unspecified as to partial versus complete obstruction Plan: Final diagnosis #1 partial small bowel obstruction left lower quadrant #2 essential hypertension #3 chronic obstructive pulmonary disease #4 chronic kidney disease stage IIIa #5 coronary artery disease #6 cerebrovascular disease Medications at Discharge Home Medications albuterol sulfate 2 puff INHALATION Q4H PRN PRN 03/20/15 aspirin 81 mg PO QHS 03/20/15 montelukast 10 mg PO QHS 03/20/15 spironolactone 25 mg PO DAILY 03/20/15 torsemide 10 mg PO DAILY 03/20/15 omeprazole 40 mg PO PRN PRN 06/14/19 dipyridamole 75 mg PO BID 12/02/20 losartan 12.5 - 25 mg PO DAILY 12/02/20 budesonide-formoterol HFA 160 mcg-4.5 mcg/actuation aerosol inhaler 2 puff INHALATION BID 02/25/21 Hospital Course Operations None Procedures None Summary of Care Provided Minutes Spent on Discharge: 30 Hospital Course: This 80-year-old white female was seen in the emergency room at [facility] with chief complaint of abdominal pain and vomiting. Work-up in the emergency room included a CT scan which showed a probable left lower quadrant small bowel obstruction, NG tube was not initially placed by the emergency room physician due to refusal by the patient. Patient was admitted to [place] [address] and seen in consultation by general surgery who convinced the patient to have an NG tube, patient was treated conservatively with IV fluids and eventually her small bowel obstruction resolved. On 06/13/2021, patient was seen and examined: On examination she appeared in good health and spirits, she does not appear to be in any distress. Vital signs as documented. Skin warm and dry and without overt rashes. Neck without JVD, thyroid appears normal, trachea is midline, neck is supple. Lungs clear, normal air movement was noted. Heart exam notable for regular rhythm, normal sounds and absence of murmurs, rubs or gallops. Abdomen unremarkable and without evidence of organomegaly, masses, or abdominal aortic enlargement, bowel sounds are present in all 4 quadrants, no abdominal tenderness was noted. Extremities nonedematous, no cyanosis was noted, no clubbing was noted. Neuro: Cranial nerves II through XII are grossly intact, no focal motor deficits were noted, sensation to light touch and pinprick is intact, motor exam 5/5 throughout. Psych: Patient is alert and oriented x3, she does not appear anxious or depressed, she does not appear agitated. Patient appears stable for discharge home on 06/13/2021. Weight / BMI Weight Weight: 62.3 kg Body Mass Index (BMI) 27.2 ABG / Lab / Microbiology Data Result Diagrams: 06/12/21 06:15 06/12/21 06:15 Radiography Diagnostic Testing: Radiology Impression KUB X-Ray 06/12/21 18:00 IMPRESSION: 1. Nonobstructive bowel gas pattern. Expected passage of bowel contrast into the colon. Electronically Signed: Alfred Perez MD (Brooks) at 19:15 EDT , Service support , KUB X-Ray 06/13/21 00:00 IMPRESSION: 1. Nasogastric tube with the tip likely in the body the stomach. 2. No bowel obstruction with oral contrast throughout the colon. Electronically Signed: Kirby Elizabeth MD at 8:22 EDT Tel , Service support , D/C Instructions Discharge Diet: No restrictions Weight Bearing Status: Full weight bearing Meaningful Use Info Meaningful Use Diagnoses (Choose all that apply): None applicable Discharge Plan Admission Admit Date/Time: 06/11/21 18:19 Primary Reason for Your Visit: small bowel obstruction Attending Provider: Julius Fabian Primary Care Provider: Julius Sandoval Consulting Providers: Sumit Ramírez Discharge Orders/Prescriptions Prescriptions: Continued torsemide 20 MG tablet 10 mg PO DAILY RF: 0 spironolactone 25 MG tablet 25 mg PO DAILY RF: 0 aspirin 81 MG tablet,chewable 81 mg PO QHS RF: 0 montelukast 10 MG tablet 10 mg PO QHS RF: 0 albuterol sulfate 1 INHALER inhaler 2 puff INHALATION Q4H PRN PRN (Reason: Shortness Of Breath) RF: 0 omeprazole 40 MG capsule,delayed release(DR/EC) 40 mg PO PRN PRN (Reason: stomach) RF: 0 budesonide-formoterol 160-4.5 mcg/actuation HFA aerosol inhaler 2 puff inhalation BID RF: 0 dipyridamole 75 MG tablet 75 mg PO BID RF: 0 losartan 25 MG tablet 12.5 - 25 mg PO DAILY RF: 0 Referrals / Follow Up: Sumit Ramírez MD [STAFF PHYSICIAN] - Within 2 Weeks Julius Sandoval MD [Primary Care Provider] - See Referral Note (in 2-3 weeks) Disposition Disposition (needs filled in before D/C Order can be placed): Home, Self Care Charges/Coding Visit Charges Inpatient E&M: 28052 Disch Hosp
--- NOTE | 2021-06-14 13:33 | CASEMGMT ---
BRADEN CHEUNG Discharge Follow-up Phone Call: ZANDRAJillian: Lashon Strata: 3 Call Date: 06/14/21 Discharge Date: 06/13/21 Time of Call: 1333 Duration: 2 min Admitting Diagnosis: Partial SBO BRADEN CHEUNG completed follow-up phone call after recent hospitalization. Patient states she is doing well. Patient had no questions regarding discharge instructions. Patient is aware and will be making follow-up appts. Patient had no further questions or concerns at this time.
== END 2021-06-13 16:28 | disposition home or self-care (01) | DRG 389 ==
LOC: ED 18:25 → MS3 20:27
PROVIDERS: Admitting Provider Internal Medicine; Emergency Provider Emergency Medicine; PCP Family Medicine; Visit Provider Internal Medicine
DX: K56.600 Partial intestinal obstruction, unspecified as to cause (principal); I13.0 Hypertensive heart and chronic kidney disease with heart failure and stage 1 through stage 4 chronic kidney disease, or unspecified chronic kidney disease; I50.9 Heart failure, unspecified; N18.31 Chronic kidney disease, stage 3a; J44.9 Chronic obstructive pulmonary disease, unspecified; I25.10 Atherosclerotic heart disease of native coronary artery without angina pectoris; Z86.73 Personal history of transient ischemic attack (TIA), and cerebral infarction without residual deficits; Z79.899 Other long term (current) drug therapy
CPT/HCPCS: 74018; 74176; 80048; 81001; 83605; 83735; 84100; 85025; 93005; 94640; 94762; 97802; 97803; 99251; 99284; J7120; A4216; G0463; J2405

== ENCOUNTER 2021-06-15 13:00 | Outpatient (RCR) | payer MEDICARE, SELFPAY ==
[2021-06-04 10:04] VITALS: BP 141/69; PULSE 69; TEMP 36.8
--- NOTE | 2021-06-04 11:29 | HP.PCM_ITS ---
History of Present Illness Date of Service: 06/04/21 Chief Complaint: Right anterior lower leg ulcer History of Wound: Patient is a pleasant 80-year-old female who presents today for evaluation of a right anterior lower leg ulcer. 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 She states that approximately 4 weeks ago she was stepping over a log when she caught her right lower leg on a branch, causing a laceration. She was seen in the [facility] emergency department on 05/11/2021 and 3 coleen were placed in the right lower extremity. She filled a prescription for Keflex 500 mg on 05/19/2021 and a prescription for doxycycline on 05/21/2021. She has com pleted both of these antibiotics. Her coleen have been removed. She has been cleansing the ulcer of her right lower leg with soap and water and wrapping this with gauze. The patient denies fever, chills, general malaise, or poor appetite. The patient has not had increased redness, swelling, or purulent/malodorous drainage from affected area. She has been on a recent course of prednisone for her gout. She is ambulatory. She sleeps in a bed at night. Labs from 02/11/2021 were reviewed and significant for the following: CBCD with RBC 3.97 (L), CMP with BUN 47 (H), creatinine 1.79 (H), estimated GFR 29 (L), total bilirubin 1.10 (H). A venous Doppler study from 09/26/2019 showed the following: Right CFV is compressible, spontaneous, phasic, competent and demonstrates normal augmentation. There is no evidence of left lower extremity deep vein thrombosis. Left great saphenous vein appears patent and compressible segmentally. 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5 mcg/actuation aerosol inhaler 2 puff INHALATION BID 02/25/21 [History Last Taken Unknown] fluconazole 150 mg tablet 150 mg PO .COMPLEX #2 tab 03/17/21 [Rx Last Taken Unknown] Allergy/AdvReac Type Severity Reaction Status Date / Time clarithromycin [From Biaxin] Allergy Fever Verified 05/11/21 15:54 diazepam [From Valium] Allergy seizures Verified 05/11/21 15:54 diphenhydramine HCl Allergy difficulty Verified 05/11/21 15:54 [From Benadryl] breathing esomeprazole magnesium Allergy chest pain Verified 05/11/21 15:54 [From Nexium] NSAIDS (Non-Steroidal Allergy Other Verified 05/11/21 15:54 Anti-Inflamma Penicillins Allergy Rash Verified 05/11/21 15:54 pentazocine lactate Allergy quit Verified 05/11/21 15:54 [From Talwin] breathing Sulfa (Sulfonamide Allergy Rash Verified 05/11/21 15:54 Antibiotics) sulfur dioxide Allergy massive Verified 05/11/21 15:54 headaches Family History Mother Cancer stomach throat Thyroid disorder Father Heart disease Surgical History H/O bilateral mastectomy H/O bilateral oophorectomy H/O dilation and curettage History of cholecystectomy History of colon surgery S/P RAFIA (total abdominal hysterectomy) Social History Smoking Status: Never smoker alcohol intake: never substance use type: does not use caffeine: Yes what type of physical activity do you participate in: walking and bicycling frequency: daily seatbelt use: always do you feel safe at home: Yes additional social history: Russell- Gisela are retired ROS Constitutional Constitutional: Denies chills, fever(s) or night sweats Eyes Eyes: Denies change in vision or double vision ENT HEENT: Denies lip swelling or tongue swelling Cardiovascular Cardiovascular: Reports leg edema; Denies chest pain or palpitations Respiratory/Chest Respiratory/Chest: Denies cough, shortness of breath at rest, shortness of breath with exertion or wheezing Gastrointestinal Gastrointestinal: Denies diarrhea, nausea or vomiting Genitourinary Genitourinary: Denies dysuria or hematuria Musculoskeletal Musculoskeletal: Reports extremity pain; Denies abnormal gait, muscle weakness, numbness or tingling Integumentary Integumentary: Reports wounds; Denies rash Neurologic Neurologic: Denies abnormal gait, abnormal speech or focal weakness Endocrine Endocrinology: Denies cold intolerance, heat intolerance, polydipsia or polyuria Hematologic/Lymphatic Hematologic/Lymphatic: Reports easy bleeding and easy bruising Vital Signs Vital Signs Vital Signs: 06/04/21 10:04 Temperature 98.2 F Temperature Source Temporal Pulse Rate 69 Blood Pressure 141/69 H Blood Pressure Mean 93 Blood Pressure Source Monitor Physical Exam Const alert, no apparent distress and healthy appearing General Appearance: cooperative, comfortable and well kempt HEENT Head and Scalp: normocephalic and atraumatic Eyes EOMs intact bilaterally Neck supple and no JVD Resp normal respiratory effort, normal air movement and no use of accessory muscles Auscultation: clear to auscultation bilaterally; Negative for crackles, rales, rhonchi or wheezes Cardio regular rate and regular rhythm GI normal to inspection, nondistended, normoactive bowel sounds Extremity normal capillary refill and no calf tenderness Extremity Narrative: Tophi of the hands General Extremity: edema bilateral lower extremity Details: mild Peripheral Pulses: Yes dorsalis pedis pulses present bilateral 2+ Skin Wounds: wounds noted No malodorous Wound Narrative: Anterior RLE ulcer with subcutaneous layer exposed. Small to moderate amount of slough and devitalized tissue present. No tunneling, undermining, or probing to bone. No purulent or malodorous drainage. No periulcer warmth, edema, or erythema. No significant tenderness to palpation. Neuro oriented x3, moves all extremities and no focal motor deficits Psych mental status grossly normal, cooperative and affect normal Debridement Note Debridement Note Wound debrided: Anterior RLE ulcer Laterality: Right Type of Debridement: Excisional debridement Anesthesia Used: 5% Lidocaine Gel Depth: in the subcutaneous layer Percentage of wound debrided: 100 Instrument Used: 3mm curette Tissue Removed: Slough and devitalized tissue Severity: Fat Layer Exposed Amount of bleeding with debridement: Mild Bleeding Controlled with: Pressure Patient tolerated procedure: Patient tolerated procedure well Post-Debridement Measurements and Additional Note: Post-Debridement Measurements/Treatment - Nurse 1 - General Ulcer Assessment Start: 06/04/21 09:58 Freq: Status: Active Protocol: HAN Activity Type Activity Date Activity User E-Sign Co-Sign Detail Recorded Client Recorded Date Recorded By Document 06/04/21 10:04 ALLAN [id number] 06/04/21 10:11 ALLAN 06/04/21 10:04 - Today's Visit Information Type of service Initial Visit Arrival Mode Ambulatory Patient Identification Verified (Name & Yes ) Patient Requires Transmission-Based No Precautions Safety Precautions NA Vital Signs Temperature (97.8 F-99.1 F) 98.2 F Temperature Source Temporal Pulse Rate (60-100) 69 Pulse Location Monitor Blood Pressure (90/60-120/80) 141/69 H Blood Pressure Mean 93 Source Monitor History Since Last Visit- (Skip if this is Patient's initial visit) Have you changed medications since your No last visit? Any new allergies or adverse reactions No Had a fall/change in ADL's that may No increase risk of falls Signs or symptoms of abuse and/or No neglect since last visit Have you been in the hospital since your No last visit? Left Footwear Regular Shoe Right Footwear Regular Shoe [facility] Nurse 1 - General Ulcer Measurement Start: 06/04/21 09:58 Freq: Status: Active Protocol: Activity Type Activity Date Activity User E-Sign Co-Sign Detail Recorded Client Recorded Date Recorded By Document 06/04/21 10:04 ALLAN [id number] 06/04/21 10:11 AK 06/04/21 10:04 Wound Center Nurse 1 #2 R balbuena -Current Size (cm) - Length 2.4 -Current Size (cm) - Width 2.1 -Current Size (cm) - Depth 0.1 -Total Square Cm 5.04 -Date of Last Picture (Recall this 06/04/21 field) -Photo Taken Yes -Epithelialization None Present -Tunneling No -Undermining/Tunneling No -Circular Undermining No -Change in Wound Grade/Stage No -Exudate Amt Medium -Exudate Type Serosanguineous -Wound Margin Distinct, Outline Attached -Granulation Amt None Present (0 %) -Granulation Quality N/A -Slough/Fibrin No -Necrosis Amt None Present (0 %) -Structure Exposed N/A -Texture (Ade-wound Skin Appearance) No Abnormality, Assessed -Moisture (Ade-wound Skin Appearance) No Abnormality, Assessed -Color (Ade-wound Skin Appearance) No Abnormality, Assessed -Temperature (Ade-wound Skin No Abnormality Appearance) (Pt Warm) -Tenderness on Palpation (Ade-wound Yes Skin Appearance) -Ulcer Cleansing Rinsed/ Irrigated with Saline -Foul Odor after Cleansing No -Anesthetic Used 5% Lidocaine Gel Right Calf (cm) 35 Right Ankle (cm) 24 WC - Nurse 2 - General Ulcer CM Notes Start: 06/04/21 09:58 Freq: Status: Active Protocol: Activity Type Activity Date Activity User E-Sign Co-Sign Detail Recorded Client Recorded Date Recorded By Document 06/04/21 11:13 PL [id number] 06/04/21 11:15 PL 06/04/21 11:13 Wound Center Nurse 2 #2 R balbuena -Time 10:23 -Correct Patient Yes -Correct Side, Site, Position Yes -Correct Procedure Yes -Procedure Performed Yes -Type of Procedure Debridement -Clinical Debridement Subcutaneous -Tissue Removed Subcutaneous -Post Debridement (cm) - Length 2.6 -Post Debridement (cm) - Width 2.5 -Post Debridement (cm) - Depth 0.2 -Total Square (Post) (cm) 6.50 -Area of Debridement (cm) - Length 2.6 -Area of Debridement (cm) - Width 2.5 -Total Square (Area) (cm) 6.50 -Tunneling No -Undermining/Tunneling No -Circular Undermining No -Wound/Ulcer Outcome Not Healed -Ulcer Cleansing Rinsed/ Irrigated with Saline -Foul Odor after Cleansing No -Bioengineered Tissue No -Debridement - Subq, 1st 20sq cm Yes WC - Nurse 3 - General Ulcer D/C NN Start: 06/04/21 09:58 Freq: Status: Active Protocol: Activity Type Activity Date Activity User E-Sign Co-Sign Detail Recorded Client Recorded Date Recorded By Document 06/04/21 10:44 MATTHEW [id number] 06/04/21 10:44 MATTHEW 06/04/21 10:44 Wound Care Nurse 3 -Ulcer Cleansing Rinsed/ Irrigated with Saline -Primary Dressing Applied Promogran -Primary Dressing Covered/Secured with Dry Gauze,Dry Gauze & Roll Gauze,Secured with Tape -Promogran 1 Pain Scale: 0-10 Numeric Is Patient Pain Free? 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 Promogran applied. At home wound-care instructions: Change dressing once daily or more frequently as needed due to contamination. Wash wounds daily with antibacterial soap and water, rinse and dry thoroughly before each dressing change. Compression: Tubigrip applied for compression. Patient instructed to wear compression daily. Patient may remove compression at bedtime, but should reapply compression prior to getting out of bed in the morning. Off-loading: The patient was instructed to avoid pressure and friction on the affected areas. Reposition every 2 hours at minimum. Avoid prolonged standing and/or dangling of legs. When seated, feet should be elevated at chest level. Frequent ambulation is encouraged. Diet: Patient encouraged to increase protein intake while taking caution to avoid high carbohydrate and/or sugar intake. Labs/cultures/imaging: Cultures ordered and collected today. Patient had recent lab work completed, and these results will be requested. Venous and arterial studies ordered. Follow-up: Return to clinic in 1 week for re-evaluation. Return sooner or report to the emergency room should symptoms worsen, or new symptoms arise. Note: [employer] speech recognition fiction and nonfiction author software was used to create portions of this document. Sound-alike and misspelled words, as well as other fiction and nonfiction author errors may be contained in the documentation.
--- NOTE | 2021-06-15 12:50 | ART_ITS ---
Reason For Study: Nonhealing Wound Procedure A bilateral lower extremity continuous wave Doppler with analog waveform analysis,segmental pressures,and ankle brachial indexes without exercise. Left Segmental Pressures Left brachial= 147mmHg. Left posterior tibial artery = 153mmHg. Left dorsalis pedis artery = 147mmHg. Left digit = 102 mmHg. The left dorsalis pedis waveforms are triphasic. The left posterior tibial artery waveforms are triphasic. Right Segmental Pressures Right brachial= 146mmHg. Right posterior tibial artery = 165mmHg. Right dorsalis pedis artery = 163mmHg. Right digit = 113 mmHg. The right dorsalis pedis waveforms are triphasic. The right posterior tibial artery waveforms are triphasic. Indices The right ankle brachial index by the dorsalis pedis is 1.11. The right ankle brachial index by the posterior tibial artery is 1.12. The right digital-brachial index is 0.77. The left ankle brachial index by the dorsalis pedis is 1.00. The left ankle brachial index by the posterior tibial artery is 1.04. The left digital-brachial index is 0.69. VL/Lower Ext Art Exam w/o Exercis Interpretation Summary Triphasic Doppler waveforms are noted at ankle level bilaterally. The pulse-vol ume recordings are diminished at digital level on the left, but otherwise satisfactory at all othe r levels bilaterally. Resting ankle-brachial indices are normal bilaterally. The right digital-brachi al index is normal. The left digital-brachial index is midly diminished. Arterial flow appears normal at ankle level bilaterally, as well as at digital level on the right. There is evidence of mild arterial occlusive disease at digital level on the le ft. Ordering Physician: Liseth Hagan Referring Physician: Julius Sandoval Performed By: Ayla Gee RVT
== END 2021-06-17 23:59 ==
LOC: CVS 13:00
PROVIDERS: PCP Family Medicine; Referring Provider Nurse Practitioner Family; Visit Provider Nurse Practitioner Family
DX: I83.018 Varicose veins of right lower extremity with ulcer other part of lower leg (principal); L97.812 Non-pressure chronic ulcer of other part of right lower leg with fat layer exposed; N18.30 Chronic kidney disease, stage 3 unspecified; I13.0 Hypertensive heart and chronic kidney disease with heart failure and stage 1 through stage 4 chronic kidney disease, or unspecified chronic kidney disease; I50.9 Heart failure, unspecified; J45.909 Unspecified asthma, uncomplicated; Z86.718 Personal history of other venous thrombosis and embolism; I25.10 Atherosclerotic heart disease of native coronary artery without angina pectoris; Z79.82 Long term (current) use of aspirin; S81.811S Laceration without foreign body, right lower leg, sequela; W45.8XXS Other foreign body or object entering through skin, sequela; I25.2 Old myocardial infarction; R60.0 Localized edema; I77.1 Stricture of artery
CPT/HCPCS: 11042; 87070; 87075; 87077; 87186; 87205; 93923; 99213; G0463

== ENCOUNTER 2021-07-16 10:45 | Outpatient (RCR) | payer MEDICARE, SELFPAY ==
[2021-06-18 00:09] VITALS: BP 141/69; PULSE 69; TEMP 36.8
[2021-06-18 08:45] VITALS: BP 135/59; PULSE 77; TEMP 36.2
--- NOTE | 2021-06-18 12:58 | PCM.WC.PN ---
History of Present Illness Date of Service: 06/18/21 Chief Complaint: Right anterior lower leg ulcer History of Wound: Patient is a pleasant 80-year-old female who presents today for evaluation of a right anterior lower leg ulcer. 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 She states that approximately 4 weeks ago she was stepping over a log when she caught her right lower leg on a branch, causing a laceration. She was seen in the [facility] [place] emergency department on 05/11/2021 and 3 coleen were placed in the right lower extremity. She filled a prescription for Keflex 500 mg on 05/19/2021 and a prescription for doxycycline on 05/21/2021. She has completed both of these antibiotics. Her coleen have been removed. She has been cleansing the ulcer of her right lower leg with soap and water and wrapping this with gauze. The patient denies fever, chills, general malaise, or poor appetite. The patient has not had increased redness, swelling, or purulent/malodorous drainage from affected area. She has been on a recent course of prednisone for her gout. She is ambulatory. She sleeps in a bed at night. Labs from 02/11/2021 were reviewed and significant for the following: CBCD with RBC 3.97 (L), CMP with BUN 47 (H), creatinine 1.79 (H), estimated GFR 29 (L), total bilirubin 1.10 (H). A venous Doppler study from 09/26/2019 showed the following: Right CFV is compressible, spontaneous, phasic, competent and demonstrates normal augmentation. There is no evidence of left lower extremity deep vein thrombosis. Left great saphenous vein appears patent and compressible segmentally. Patent and compressible right common femoral vein Progress of Wound: Patient's wound is improved in size and appearance today. She has been compliant with the use of Promogran and Tubigrip's. She was hospitalized in recent weeks for bowel obstruction, and missed her appointment last week due to hospitalization. 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 Her culture revealed rare Pseudomonas. No antibiotics were initiated. The patient denies fever, chills, general malaise, or poor appetite. The patient has not had increased redness, swelling, or purulent/malodorous drainage from affected area. Objective Data Objective Data Vital Signs: Vital Signs Temp Pulse BP 97.1 F L 77 135/59 H 06/18/21 08:45 06/18/21 08:45 06/18/21 08:45 Charges/Coding Procedures Integumentary [id number]: [id number] Marium subq tissue 20 sq cm/< Physical Exam Const alert, no apparent distress and healthy appearing General Appearance: cooperative, comfortable and well kempt HEENT Head and Scalp: normocephalic and atraumatic Eyes EOMs intact bilaterally Neck supple Resp normal respiratory effort Extremity normal capillary refill Extremity Narrative: Tophi of the hands General Extremity: edema bilateral lower extremity Details: mild Peripheral Pulses: Yes dorsalis pedis pulses present bilateral 2+ Skin General Skin Exam: other Multiple varicosities of bilateral lower extremities Wounds: wounds noted No malodorous Wound Narrative: Anterior RLE ulcer with subcutaneous layer exposed. Small to moderate amount of slough and devitalized tissue present. No tunneling, undermining, or probing to bone. No purulent or malodorous drainage. No periulcer warmth, edema, or erythema. No significant tenderness to palpation. Psych mental status grossly normal, cooperative and affect normal Debridement Note Debridement Note Wound debrided: Anterior RLE ulcer Laterality: Right Type of Debridement: Excisional debridement Anesthesia Used: 5% Lidocaine Gel Depth: in the subcutaneous layer Percentage of wound debrided: 100 Instrument Used: 3mm curette Tissue Removed: Slough and devitalized tissue Severity: Fat Layer Exposed Amount of bleeding with debridement: Mild Bleeding Controlled with: Pressure Patient tolerated procedure: Patient tolerated procedure well Post-Debridement Measurements and Additional Note: Post-Debridement Measurements/Treatment ROSS - Nurse 1 - General Ulcer Assessment Start: 06/18/21 08:43 Freq: Status: Active Protocol: HAN Activity Type Activity Date Activity User E-Sign Co-Sign Detail Recorded Client Recorded Date Recorded By Document 06/18/21 08:45 MATTHEW [id number] 06/18/21 08:48 KR 06/18/21 08:45 RSOS - Today's Visit Information Type of service Follow-up Visit (Physician/SNOWBOARD INSTRUCTOR ) Arrival Mode Ambulatory Patient Identification Verified (Name & Yes ) Patient Requires Transmission-Based No Precautions Safety Precautions NA Vital Signs Temperature (97.8 F-99.1 F) 97.1 F L Temperature Source Temporal Pulse Rate (60-100) 77 Pulse Location Monitor Blood Pressure (90/60-120/80) 135/59 H Blood Pressure Mean (mm Hg) 84 Source Monitor WC - Nurse 1 - General Ulcer Measurement Start: 06/18/21 08:43 Freq: Status: Active Protocol: Activity Type Activity Date Activity User E-Sign Co-Sign Detail Recorded Client Recorded Date Recorded By Document 06/18/21 08:45 KR [id number] 06/18/21 08:48 KR 06/18/21 08:45 Wound Center Nurse 1 #2 R balbuena -Current Size (cm) - Length 1 -Current Size (cm) - Width 2 -Current Size (cm) - Depth 0.2 -Total Square Cm 2 -Photo Taken No -Epithelialization None Present -Tunneling No -Undermining/Tunneling No -Circular Undermining No -Exudate Amt Small -Exudate Type Serosanguineous -Wound Margin Distinct, Outline Attached -Granulation Amt None Present (0 %) -Slough/Fibrin No -Necrosis Amt Medium (34-66%) -Necrotic Tissue Type Eschar -Structure Exposed N/A -Texture (Ade-wound Skin Appearance) No Abnormality, Assessed -Moisture (Ade-wound Skin Appearance) No Abnormality, Assessed -Color (Ade-wound Skin Appearance) Assessed, Erythema -Temperature (Ade-wound Skin No Abnormality Appearance) (Pt Warm) -Tenderness on Palpation (Ade-wound No Skin Appearance) -Ulcer Cleansing Rinsed/ Irrigated with Saline -Foul Odor after Cleansing No -Anesthetic Used 5% Lidocaine Gel Right Calf (cm) 39 Right Ankle (cm) 26.6 - Nurse 3 - General Ulcer D/C NN Start: 06/18/21 08:43 Freq: Status: Active Protocol: Activity Type Activity Date Activity User E-Sign Co-Sign Detail Recorded Client Recorded Date Recorded By Document 06/18/21 12:36 AK [id number] 06/18/21 12:37 AK 06/18/21 12:36 Wound Care Nurse 3 #2 R balbuena -Primary Dressing Applied C Hydrogel ($), Promogran -Primary Dressing Covered/Secured with Dry Gauze,Dry Gauze & Roll Gauze,Secured with Tape -Promogran 1 Pain Scale: 0-10 Numeric Is Patient Pain Free? 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 Promogran applied. At home wound-care instructions: Change dressing once daily or more frequently as needed due to contamination. Wash wounds daily with antibacterial soap and water, rinse and dry thoroughly before each dressing change. Compression: Double Tubigrip applied to the right lower extremity for compression. A single Tubigrip was applied to the left lower extremity. Patient instructed to wear compression daily. 20 to 30 mmHg compression recommended. If patient is able to tolerate 30 to 40 mmHg pressure, this may also be used. Patient may remove compression at bedtime, but should reapply compression prior to getting out of bed in the morning. Off-loading: The patient was instructed to avoid pressure and friction on the affected areas. Reposition every 2 hours at minimum. Avoid prolonged standing and/or dangling of legs. When seated, feet should be elevated at chest level. Frequent ambulation is encouraged. Diet: Patient encouraged to increase protein intake while taking caution to avoid high carbohydrate and/or sugar intake. Labs/cultures/imaging: Cultures revealed rare Pseudomonas. Antibiotics deferred due to absence of clinical signs of infection, and significant improvement in wound size and appearance within the last week. 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 Venous studies were completed at the [facility] and these results will be requested. The patient had numerous labs completed while inpatient for bowel obstruction; reviewed and significant for the following: Estimated GFR 55, RBC 3.54 (L), hemoglobin 10.9 (L), hematocrit 34.6 (L), albumin 2.9 (L) Follow-up: Return to clinic in 1 week for re-evaluation. Return sooner or report to the emergency room should symptoms worsen, or new symptoms arise. Note: [employer] speech recognition supervisor mirror fabrication software was used to create portions of this document. Sound-alike and misspelled words, as well as other supervisor mirror fabrication errors may be contained in the documentation.
[2021-06-25 11:45] VITALS: BP 142/49; PULSE 84; RESP 16; TEMP 36.7
--- NOTE | 2021-06-25 15:06 | PCM.WC.PN ---
History of Present Illness Date of Service: 06/25/21 Chief Complaint: Right anterior lower leg ulcer History of Wound: Patient is a pleasant 80-year-old female who presents today for evaluation of a right anterior lower leg ulcer. 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 She states that approximately 4 weeks ago she was stepping over a log when she caught her right lower leg on a branch, causing a laceration. She was seen in the [facility] emergency department on 05/11/2021 and 3 coleen were placed in the right lower extremity. She filled a prescription for Keflex 500 mg on 05/19/2021 and a prescription for doxycycline on 05/21/2021. She has completed both of these antibiotics. Her coleen have been removed. She has been cleansing the ulcer of her right lower leg with soap and water and wrapping this with gauze. The patient denies fever, chills, general malaise, or poor appetite. The patient has not had increased redness, swelling, or purulent/malodorous drainage from affected area. She has been on a recent course of prednisone for her gout. She is ambulatory. She sleeps in a bed at night. Labs from 02/11/2021 were reviewed and significant for the following: CBCD with RBC 3.97 (L), CMP with BUN 47 (H), creatinine 1.79 (H), estimated GFR 29 (L), total bilirubin 1.10 (H). A venous Doppler study from 09/26/2019 showed the following: Right CFV is compressible, spontaneous, phasic, competent and demonstrates normal augmentation. There is no evidence of left lower extremity deep vein thrombosis. Left great saphenous vein appears patent and compressible segmentally. Patent and compressible right common femoral vein Progress of Wound: Patient's original wound (distal RLE ulcer) is improved in size and appearance today. She has been compliant with the use of Promogran and Tubigrips. Last week she had a small, scabbed area of her proximal right lower leg. This developed after she dropped a frozen chicken and it fell against her leg, causing a small hematoma. This has opened. 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 Her culture revealed rare Pseudomonas. No antibiotics were initiated. The patient denies fever, chills, general malaise, or poor appetite. The patient has not had increased redness, swelling, or purulent/malodorous drainage from affected area. Objective Data Objective Data Vital Signs: Vital Signs Temp Pulse Resp BP 98.1 F 84 16 142/49 H 06/25/21 11:45 06/25/21 11:45 06/25/21 11:45 06/25/21 11:45 Charges/Coding Procedures Integumentary [id number]: [id number] Marium subq tissue 20 sq cm/< Physical Exam Const alert, no apparent distress and healthy appearing General Appearance: cooperative, comfortable and well kempt HEENT Head and Scalp: normocephalic and atraumatic Eyes EOMs intact bilaterally Neck supple Resp normal respiratory effort Extremity normal capillary refill Extremity Narrative: Tophi of the hands General Extremity: edema bilateral lower extremity Details: mild Peripheral Pulses: Yes dorsalis pedis pulses present right 2+ Skin General Skin Exam: other Multiple varicosities of bilateral lower extremities Wounds: wounds noted No malodorous Wound Narrative: Anterior RLE ulcer (distal) with subcutaneous layer exposed. Small amount of slough and devitalized tissue present. No tunneling, undermining, or probing to bone. No purulent or malodorous drainage. No periulcer warmth, edema, or erythema. No significant tenderness to palpation. Proximal right lower leg ulcer with subcutaneous layer exposed. Tunneling present. No undermining, no probing to bone. Small amount of slough and devitalized tissue. No purulent or malodorous drainage. No tenderness to palpation. No periulcer warmth, edema, or erythema. Psych mental status grossly normal, cooperative and affect normal Debridement Note Debridement Note Wound debrided: Anterior RLE ulcer (distal) Laterality: Right Type of Debridement: Excisional debridement Anesthesia Used: 5% Lidocaine Gel Depth: in the subcutaneous layer Percentage of wound debrided: 100 Instrument Used: 3mm curette Tissue Removed: slough and devitalized tissue Severity: Fat Layer Exposed Amount of bleeding with debridement: Mild Bleeding Controlled with: Pressure Patient tolerated procedure: Patient tolerated procedure well Post-Debridement Measurements and Additional Note: Post-Debridement Measurements/Treatment WC - Nurse 1 - General Ulcer Assessment Start: 06/18/21 08:43 Freq: Status: Active Protocol: HAN Activity Type Activity Date Activity User E-Sign Co-Sign Detail Recorded Client Recorded Date Recorded By Document 06/18/21 08:45 KR [id number] 06/18/21 08:48 KR Document 06/25/21 11:45 ML [id number] 06/25/21 11:48 ML 06/18/21 06/25/21 08:45 11:45 WC - Today's Visit Information Type of service Follow-up Visit Follow-up Visit (Physician/ETCH [employer]PER[employer] (Physician/ETCH [employer]PERATOR [employer] ) ) Arrival Mode Ambulatory Ambulatory Transfer Assistance None Patient Identification Verified (Name & Yes Yes ) Patient Requires Transmission-Based No No Precautions Safety Precautions NA NA Vital Signs Temperature (97.8 F-99.1 F) 97.1 F L 98.1 F Temperature Source Temporal Temporal Pulse Rate (60-100) 77 84 Pulse Location Monitor Monitor Respiratory Rate (12-18) 16 Respiratory rate source Observation Blood Pressure (90/60-120/80) 135/59 H 142/49 H Blood Pressure Mean (mm Hg) 84 80 Source Monitor Monitor Position Sitting Blood Pressure Location Right Arm History Since Last Visit- (Skip if this is Patient's initial visit) Have you changed medications since your No last visit? Any new allergies or adverse reactions No Had a fall/change in ADL's that may No increase risk of falls Signs or symptoms of abuse and/or No neglect since last visit Have you been in the hospital since your No last visit? Has dressing in place as prescribed Yes Has compression in place as prescribed Yes Has offloadiing in place as prescribed N/A Experienced any changes in pain level or No management Left Footwear Regular Shoe Right Footwear Regular Shoe Pain Scale: 0-10 Numeric Is Patient Pain Free? Yes - Nurse 1 - General Ulcer Measurement Start: 06/18/21 08:43 Freq: Status: Active Protocol: Activity Type Activity Date Activity User E-Sign Co-Sign Detail Recorded Client Recorded Date Recorded By Document 06/18/21 08:45 KR [id number] 06/18/21 08:48 KR Document 06/25/21 11:45 ML [id number] 06/25/21 11:48 ML 06/18/21 06/25/21 08:45 11:45 Wound Center Nurse 1 #2 R balbuena -Current Size (cm) - Length 1 0.5 -Current Size (cm) - Width 2 0.3 -Current Size (cm) - Depth 0.2 0.1 -Total Square Cm 2 0.15 -Photo Taken No -Epithelialization None Present -Tunneling No -Undermining/Tunneling No -Circular Undermining No -Exudate Amt Small Small -Exudate Type Serosanguineous Serosanguineous -Wound Margin Distinct, Distinct, Outline Outline Attached Attached -Granulation Amt None Present (0 Small (1-33%) %) -Slough/Fibrin No Yes -Necrosis Amt Medium (34-66%) -Necrotic Tissue Type Eschar Adherent Slough -Structure Exposed N/A -Texture (Ade-wound Skin Appearance) No Abnormality, Assessed Assessed -Moisture (Ade-wound Skin Appearance) No Abnormality, Assessed Assessed -Color (Ade-wound Skin Appearance) Assessed, Assessed Erythema -Temperature (Ade-wound Skin No Abnormality No Abnormality Appearance) (Pt Warm) (Pt Warm) -Tenderness on Palpation (Ade-wound No No Skin Appearance) -Ulcer Cleansing Rinsed/ Rinsed/ Irrigated with Irrigated with Saline Saline -Foul Odor after Cleansing No No -Anesthetic Used 5% Lidocaine 4% Lidocaine Gel Solution Right Calf (cm) 39 Right Ankle (cm) 26.6 WC - Nurse 2 - General Ulcer CM Notes Start: 06/18/21 08:43 Freq: Status: Active Protocol: Activity Type Activity Date Activity User E-Sign Co-Sign Detail Recorded Client Recorded Date Recorded By Document 06/18/21 13:15 [id number] 06/18/21 13:16 PL Document 06/25/21 13:18 [id number] 06/25/21 13:19 PL 06/18/21 06/25/21 13:15 13:18 Wound Center Nurse 2 -Time 09:14 12:16 -Correct Patient Yes Yes -Correct Side, Site, Position Yes Yes -Correct Procedure Yes Yes -Procedure Performed Yes Yes -Type of Procedure Debridement Debridement -Clinical Debridement Subcutaneous Subcutaneous -Tissue Removed Subcutaneous Subcutaneous -Post Debridement (cm) - Length 1.6 0.8 -Post Debridement (cm) - Width 1.9 0.8 -Post Debridement (cm) - Depth 0.1 0.1 -Total Square (Post) (cm) 3.04 0.64 -Area of Debridement (cm) - Length 1.6 0.8 -Area of Debridement (cm) - Width 1.9 0.8 -Total Square (Area) (cm) 3.04 0.64 -Tunneling No No -Undermining/Tunneling No No -Circular Undermining No No -Wound/Ulcer Outcome Not Healed Not Healed -Ulcer Cleansing Rinsed/ Rinsed/ Irrigated with Irrigated with Saline Saline -Foul Odor after Cleansing No No -Bioengineered Tissue No No -Bleeding Controlled with Pressure Pressure -Treatment Response Procedure Procedure Tolerated Well Tolerated Well -Debridement - Subq, 1st 20sq cm Yes Yes - Nurse 3 - General Ulcer D/C NN Start: 06/18/21 08:43 Freq: Status: Active Protocol: Activity Type Activity Date Activity User E-Sign Co-Sign Detail Recorded Client Recorded Date Recorded By Document 06/18/21 12:36 AK [id number] 06/18/21 12:37 AK Document 06/25/21 12:35 ML [id number] 06/25/21 12:37 ML 06/18/21 06/25/21 12:36 12:35 Wound Care Nurse 3 #2 R balbuena -Ulcer Cleansing Rinsed/ Irrigated with Saline -Primary Dressing Applied C Hydrogel ($), Promogran Promogran -Other Dressing iodoform -Primary Dressing Covered/Secured with Dry Gauze,Dry Dry Gauze & Gauze & Roll Roll Gauze, Gauze,Secured Secured with with Tape Tape -Promogran 1 1 Pain Scale: 0-10 Numeric Is Patient Pain Free? Yes - Visit Discharge Discharge Condition Stable Ambulatory Status Ambulatory Transportation Private Auto Additional Wound Wound debrided: proximal right lower leg ulcer Laterality: Right Type of Debridement: Excisional debridement Anesthesia Used: 5% Lidocaine Gel Depth: in the subcutaneous layer Percentage of wound debrided: 100 Instrument Used: 3mm curette Tissue Removed: slough and devitalized tissue Severity: Fat Layer Exposed Amount of bleeding with debridement: Mild Bleeding Controlled with: Pressure Patient tolerated procedure: Patient tolerated procedure well Assessment/Plan Assessment/Plan (1) Traumatic hematoma of right lower leg: CODE(S): S80.11XA - Contusion of right lower leg, initial encounter QUALIFIERS: Encounter type: sequela Qualified Code(s): S80.11XS - Contusion of right lower leg, sequela (2) Laceration without foreign body, right lower leg, sequela: CODE(S): S81.811S - Laceration without foreign body, right lower leg, sequela (3) Bilateral lower extremity edema: CODE(S): R60.0 - Localized edema (4) PVD (peripheral vascular disease): CODE(S): I73.9 - Peripheral vascular disease, unspecified (5) 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 Promogran applied to the distal RLE ulcer. Proximal right lower leg ulcer packed with Curity AMD (PHMB) ribbon and covered with gauze. At home wound-care instructions: Change dressings once daily or more frequently as needed due to contamination. Wash wounds daily with antibacterial soap and water, rinse and dry thoroughly before each dressing change. Compression: Double Tubigrip applied to the right lower extremity for compression. A single Tubigrip was applied to the left lower extremity. Patient instructed to wear compression daily. 20 to 30 mmHg compression recommended. If patient is able to tolerate 30 to 40 mmHg pressure, this may also be used. Patient may remove compression at bedtime, but should reapply compression prior to getting out of bed in the morning. Off-loading: The patient was instructed to avoid pressure and friction on the affected areas. Reposition every 2 hours at minimum. Avoid prolonged standing and/or dangling of legs. When seated, feet should be elevated at chest level. Frequent ambulation is encouraged. Diet: Patient encouraged to increase protein intake while taking caution to avoid high carbohydrate and/or sugar intake. Labs/cultures/imaging: Cultures revealed rare Pseudomonas. Antibiotics deferred due to absence of clinical signs of infection, and significant improvement in wound size and appearance within the last week. 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 Venous studies were completed at the [facility] and these results will be requested. The patient had numerous labs completed while inpatient for bowel obstruction; reviewed and significant for the following: Estimated GFR 55, RBC 3.54 (L), hemoglobin 10.9 (L), hematocrit 34.6 (L), albumin 2.9 (L) Follow-up: Return to clinic in 1 week for re-evaluation. Return sooner or report to the emergency room should symptoms worsen, or new symptoms arise. Note: [employer] speech recognition duck farmer software was used to create portions of this document. Sound-alike and misspelled words, as well as other duck farmer errors may be contained in the documentation.
[2021-07-02 10:46] VITALS: BP 151/60; PULSE 74; TEMP 36
--- NOTE | 2021-07-02 13:01 | PCM.WC.PN ---
History of Present Illness Date of Service: 07/02/21 Chief Complaint: Right anterior lower leg ulcer History of Wound: Patient is a pleasant 80-year-old female who presents today for evaluation of a right anterior lower leg ulcer. 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 She states that approximately 4 weeks ago she was stepping over a log when she caught her right lower leg on a branch, causing a laceration. She was seen in the [facility] emergency department on 05/11/2021 and 3 coleen were placed in the right lower extremity. She filled a prescription for Keflex 500 mg on 05/19/2021 and a prescription for doxycycline on 05/21/2021. She has completed both of these antibiotics. Her coleen have been removed. She has been cleansing the ulcer of her right lower leg with soap and water and wrapping this with gauze. The patient denies fever, chills, general malaise, or poor appetite. The patient has not had increased redness, swelling, or purulent/malodorous drainage from affected area. She has been on a recent course of prednisone for her gout. She is ambulatory. She sleeps in a bed at night. Labs from 02/11/2021 were reviewed and significant for the following: CBCD with RBC 3.97 (L), CMP with BUN 47 (H), creatinine 1.79 (H), estimated GFR 29 (L), total bilirubin 1.10 (H). A venous Doppler study from 09/26/2019 showed the following: Right CFV is compressible, spontaneous, phasic, competent and demonstrates normal augmentation. There is no evidence of left lower extremity deep vein thrombosis. Left great saphenous vein appears patent and compressible segmentally. Patent and compressible right common femoral vein Progress of Wound: Patient's original wound (distal RLE ulcer) is healed today. She was compliant with the use of Promogran and Tubigrips. Her proximal right lower leg ulcer is improved in size and appearance today. She was started on AMD ribbon last week for packing this ulcer. She reports that after 1 day she was no longer able to pack the ribbon into the ulcer due to a decrease in size. She then resumed the use of hydrogel to the proximal RLE ulcer. The patient denies fever, chills, general malaise, or poor appetite. The patient has not had increased redness, swelling, or purulent/malodorous drainage from affected area. Objective Data Objective Data Vital Signs: Vital Signs Temp Pulse Resp BP 96.8 F L 74 16 151/60 H 07/02/21 10:46 07/02/21 10:46 06/25/21 11:45 07/02/21 10:46 Charges/Coding Procedures Integumentary [id number]: [id number] Marium subq tissue 20 sq cm/< Physical Exam Const alert, no apparent distress and healthy appearing General Appearance: cooperative, comfortable and well kempt HEENT Head and Scalp: normocephalic and atraumatic Eyes EOMs intact bilaterally Neck supple Resp normal respiratory effort Extremity normal capillary refill Extremity Narrative: Tophi of the hands General Extremity: edema bilateral lower extremity Details: mild Peripheral Pulses: Yes dorsalis pedis pulses present right 2+ Skin General Skin Exam: other Multiple varicosities of bilateral lower extremities Wounds: wounds noted No malodorous Wound Narrative: Anterior RLE ulcer (distal) is healed today. Proximal right lower leg ulcer with subcutaneous layer exposed. Small amount of undermining present. No probing to bone. Small amount of slough and devitalized tissue. No purulent or malodorous drainage. No tenderness to palpation. No periulcer warmth, edema, or erythema. Psych mental status grossly normal, cooperative and affect normal Debridement Note Debridement Note Wound debrided: Proximal RLE ulcer Laterality: Right Type of Debridement: Excisional debridement Anesthesia Used: 5% Lidocaine Gel Depth: in the subcutaneous layer Percentage of wound debrided: 100 Instrument Used: 3mm curette Tissue Removed: Slough and devitalized tissue Severity: Fat Layer Exposed Amount of bleeding with debridement: Mild Bleeding Controlled with: Pressure Patient tolerated procedure: Patient tolerated procedure well Post-Debridement Measurements and Additional Note: Post-Debridement Measurements/Treatment ROSS - Nurse 1 - General Ulcer Assessment Start: 06/18/21 08:43 Freq: Status: Active Protocol: HAN Activity Type Activity Date Activity User E-Sign Co-Sign Detail Recorded Client Recorded Date Recorded By Document 06/18/21 08:45 [id number] 06/18/21 08:48 KR Document 06/25/21 11:45 ML [id number] 06/25/21 11:48 ML Document 07/02/21 10:46 KR [id number] 07/02/21 10:47 KR 06/18/21 06/25/21 07/02/21 08:45 11:45 10:46 - Today's Visit Information Type of service Follow-up Visit Follow-up Visit Follow-up Visit (Physician/STOCKBROKING DEALER (Physician/STOCKBROKING DEALER (Physician/STOCKBROKING DEALER ) ) ) Arrival Mode Ambulatory Ambulatory Ambulatory Transfer Assistance None Patient Identification Verified (Name & Yes Yes Yes ) Patient Requires Transmission-Based No No Precautions Safety Precautions NA NA Vital Signs Temperature (97.8 F-99.1 F) 97.1 F L 98.1 F 96.8 F L Temperature Source Temporal Temporal Temporal Pulse Rate (60-100) 77 84 74 Pulse Location Monitor Monitor Monitor Respiratory Rate (12-18) 16 Respiratory rate source Observation Blood Pressure (90/60-120/80) 135/59 H 142/49 H 151/60 H Blood Pressure Mean (mm Hg) 84 80 90 Source Monitor Monitor Monitor Position Sitting Semi-Fowlers Blood Pressure Location Right Arm Right Arm History Since Last Visit- (Skip if this is Patient's initial visit) Have you changed medications since your No No last visit? Any new allergies or adverse reactions No No Had a fall/change in ADL's that may No No increase risk of falls Signs or symptoms of abuse and/or No No neglect since last visit Have you been in the hospital since your No No last visit? Has dressing in place as prescribed Yes Yes Has compression in place as prescribed Yes Yes Has offloadiing in place as prescribed N/A N/A Experienced any changes in pain level or No No management Left Footwear Regular Shoe Regular Shoe Right Footwear Regular Shoe Regular Shoe Pain Scale: 0-10 Numeric Is Patient Pain Free? Yes Yes - Nurse 1 - General Ulcer Measurement Start: 06/18/21 08:43 Freq: Status: Active Protocol: Activity Type Activity Date Activity User E-Sign Co-Sign Detail Recorded Client Recorded Date Recorded By Document 06/18/21 08:45 KR [id number] 06/18/21 08:48 KR Document 06/25/21 11:45 ML [id number] 06/25/21 11:48 ML Document 07/02/21 10:46 KR [id number] 07/02/21 10:47 KR 06/18/21 06/25/21 07/02/21 08:45 11:45 10:46 Wound Center Nurse 1 #2 R balbuena -Current Size (cm) - Length 1 0.5 0.4 -Current Size (cm) - Width 2 0.3 0.4 -Current Size (cm) - Depth 0.2 0.1 0.2 -Total Square Cm 2 0.15 0.16 -Photo Taken No -Epithelialization None Present -Tunneling No -Undermining/Tunneling No -Circular Undermining No -Exudate Amt Small Small Small -Exudate Type Serosanguineous Serosanguineous Serosanguineous -Wound Margin Distinct, Distinct, Distinct, Outline Outline Outline Attached Attached Attached -Granulation Amt None Present (0 Small (1-33%) Small (1-33%) %) -Granulation Quality Red -Slough/Fibrin No Yes -Necrosis Amt Medium (34-66%) Small (1-33%) -Necrotic Tissue Type Eschar Adherent Slough Adherent Slough -Structure Exposed N/A -Texture (Ade-wound Skin Appearance) No Abnormality, Assessed Assessed, Assessed Scarring -Moisture (Ade-wound Skin Appearance) No Abnormality, Assessed No Abnormality, Assessed Assessed -Color (Ade-wound Skin Appearance) Assessed, Assessed No Abnormality, Erythema Assessed -Temperature (Ade-wound Skin No Abnormality No Abnormality No Abnormality Appearance) (Pt Warm) (Pt Warm) (Pt Warm) -Tenderness on Palpation (Ade-wound No No No Skin Appearance) -Ulcer Cleansing Rinsed/ Rinsed/ Rinsed/ Irrigated with Irrigated with Irrigated with Saline Saline Saline -Foul Odor after Cleansing No No No -Anesthetic Used 5% Lidocaine 4% Lidocaine 5% Lidocaine Gel Solution Gel Right Calf (cm) 39 Right Ankle (cm) 26.6 WC - Nurse 2 - General Ulcer CM Notes Start: 06/18/21 08:43 Freq: Status: Active Protocol: Activity Type Activity Date Activity User E-Sign Co-Sign Detail Recorded Client Recorded Date Recorded By Document 06/18/21 13:15 PL [id number] 06/18/21 13:16 PL Document 06/25/21 13:18 PL [id number] 06/25/21 13:19 PL 06/18/21 06/25/21 13:15 13:18 Wound Center Nurse 2 -Time 09:14 12:16 -Correct Patient Yes Yes -Correct Side, Site, Position Yes Yes -Correct Procedure Yes Yes -Procedure Performed Yes Yes -Type of Procedure Debridement Debridement -Clinical Debridement Subcutaneous Subcutaneous -Tissue Removed Subcutaneous Subcutaneous -Post Debridement (cm) - Length 1.6 0.8 -Post Debridement (cm) - Width 1.9 0.8 -Post Debridement (cm) - Depth 0.1 0.1 -Total Square (Post) (cm) 3.04 0.64 -Area of Debridement (cm) - Length 1.6 0.8 -Area of Debridement (cm) - Width 1.9 0.8 -Total Square (Area) (cm) 3.04 0.64 -Tunneling No No -Undermining/Tunneling No No -Circular Undermining No No -Wound/Ulcer Outcome Not Healed Not Healed -Ulcer Cleansing Rinsed/ Rinsed/ Irrigated with Irrigated with Saline Saline -Foul Odor after Cleansing No No -Bioengineered Tissue No No -Bleeding Controlled with Pressure Pressure -Treatment Response Procedure Procedure Tolerated Well Tolerated Well -Debridement - Subq, 1st 20sq cm Yes Yes WC - Nurse 3 - General Ulcer D/C NN Start: 06/18/21 08:43 Freq: Status: Active Protocol: Activity Type Activity Date Activity User E-Sign Co-Sign Detail Recorded Client Recorded Date Recorded By Document 06/18/21 12:36 AK [id number] 06/18/21 12:37 AK Document 06/25/21 12:35 ML [id number] 06/25/21 12:37 ML Document 07/02/21 12:54 AK [id number] 07/02/21 12:57 AK 06/18/21 06/25/21 07/02/21 12:36 12:35 12:54 Wound Care Nurse 3 #2 R balbuena -Ulcer Cleansing Rinsed/ Rinsed/ Irrigated with Irrigated with Saline Saline -Foul Odor after Cleansing No -Negative Pressure Wound Therapy N/A -Primary Dressing Applied C Hydrogel ($), Promogran Promogran Promogran Jazmín Matter -Other Dressing iodoform -Primary Dressing Covered/Secured with Dry Gauze,Dry Dry Gauze & Dry Gauze & Gauze & Roll Roll Gauze, Roll Gauze, Gauze,Secured Secured with Secured with with Tape Tape Tape -Promogran 1 1 -Promogran Jazmín Matter 1 Right -Lotion applied to leg before No compression wrap -Tubular Bandage Double Layer -Size of Tubigrip Used Size E -Size E ($) 2 Pain Scale: 0-10 Numeric Is Patient Pain Free? Yes WC - Visit Discharge Discharge Condition Stable Stable Ambulatory Status Ambulatory Ambulatory, Walker Transportation Private Auto Private Auto Medication Reconcilliation completed & No provided to patient/care provider Clinical Summary of Care Provided Yes Assessment/Plan Assessment/Plan (1) Traumatic hematoma of right lower leg: CODE(S): S80.11XA - Contusion of right lower leg, initial encounter QUALIFIERS: Encounter type: sequela Qualified Code(s): S80.11XS - Contusion of right lower leg, sequela (2) Laceration without foreign body, right lower leg, sequela: CODE(S): S81.811S - Laceration without foreign body, right lower leg, sequela (3) Bilateral lower extremity edema: CODE(S): R60.0 - Localized edema (4) PVD (peripheral vascular disease): CODE(S): I73.9 - Peripheral vascular disease, unspecified (5) 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 The patient's distal RLE ulcer is healed today. Hydrogel applied to this area. Promogran applied to the proximal right lower leg ulcer. At home wound-care instructions: Change dressings every other day or more frequently as needed due to contamination. Wash wounds daily with antibacterial soap and water, rinse and dry thoroughly before each dressing change. Compression: Double Tubigrip applied to the right lower extremity for compression. A single Tubigrip was applied to the left lower extremity. Patient instructed to wear compression daily. 20 to 30 mmHg compression recommended. If patient is able to tolerate 30 to 40 mmHg pressure, this may also be used. Patient may remove compression at bedtime, but should reapply compression prior to getting out of bed in the morning. Off-loading: The patient was instructed to avoid pressure and friction on the affected areas. Reposition every 2 hours at minimum. Avoid prolonged standing and/or dangling of legs. When seated, feet should be elevated at chest level. Frequent ambulation is encouraged. Diet: Patient encouraged to increase protein intake while taking caution to avoid high carbohydrate and/or sugar intake. Labs/cultures/imaging: Cultures revealed rare Pseudomonas. Antibiotics deferred due to absence of clinical signs of infection, and significant improvement in wound size and appearance within the last week. 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 Venous studies were completed at the [facility] and these results will be requested. The patient had numerous labs completed while inpatient for bowel obstruction; reviewed and significant for the following: Estimated GFR 55, RBC 3.54 (L), hemoglobin 10.9 (L), hematocrit 34.6 (L), albumin 2.9 (L) Follow-up: Return to clinic in 2 weeks for re-evaluation. Return sooner or report to the emergency room should symptoms worsen, or new symptoms arise. Note: [employer] speech recognition powerplant operator software was used to create portions of this document. Sound-alike and misspelled words, as well as other powerplant operator errors may be contained in the documentation.
[2021-07-16 10:56] VITALS: BP 144/47; PULSE 85; RESP 16; TEMP 36.6
--- NOTE | 2021-07-16 14:09 | PN.PCM_ITS ---
History of Present Illness Date of Service: 07/16/21 Chief Complaint: Right anterior lower leg ulcer History of Wound: Patient is a pleasant 80-year-old female who presents today for evaluation of a right anterior lower leg ulcer. 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 She states that approximately 4 weeks ago she was stepping over a log when she caught her right lower leg on a branch, causing a laceration. She was seen in the [facility] emergency department on 05/11/2021 and 3 coleen were placed in the right lower extremity. She filled a prescription for Keflex 500 mg on 05/19/2021 and a prescription for doxycycline on 05/21/2021. She has com pleted both of these antibiotics. Her coleen have been removed. She has been cleansing the ulcer of her right lower leg with soap and water and wrapping this with gauze. The patient denies fever, chills, general malaise, or poor appetite. The patient has not had increased redness, swelling, or purulent/malodorous drainage from affected area. She has been on a recent course of prednisone for her gout. She is ambulatory. She sleeps in a bed at night. Labs from 02/11/2021 were reviewed and significant for the following: CBCD with RBC 3.97 (L), CMP with BUN 47 (H), creatinine 1.79 (H), estimated GFR 29 (L), total bilirubin 1.10 (H). A venous Doppler study from 09/26/2019 showed the following: Right CFV is compressible, spontaneous, phasic, competent and demonstrates normal augmentation. There is no evidence of left lower extremity deep vein thrombosis. Left great saphenous vein appears patent and compressible segmentally. Patent and compressible right common femoral vein Progress of Wound: The patient's wound is healed today. Objective Data Objective Data Vital Signs: Vital Signs Temp Pulse Resp BP 97.9 F 85 16 144/47 H 07/16/21 10:56 07/16/21 10:56 07/16/21 10:56 07/16/21 10:56 Oxygen Delivery Method Room Air Charges/Coding Visit Charges Office Visits / Consults: 20483 OV L3 Est Physical Exam Const alert, no apparent distress and healthy appearing General Appearance: cooperative, comfortable and well kempt HEENT Head and Scalp: normocephalic and atraumatic Eyes EOMs intact bilaterally Neck supple Resp normal respiratory effort Extremity normal capillary refill Extremity Narrative: Tophi of the hands General Extremity: edema bilateral lower extremity Details: mild Peripheral Pulses: Yes dorsalis pedis pulses present right 2+ Skin General Skin Exam: other Multiple varicosities of bilateral lower extremities Wounds: Negative for wounds noted Wound Narrative: Right lower extremity wounds are healed today. Psych mental status grossly normal, cooperative and affect normal Debridement Note Debridement Note No debridement was completed: No debridement was completed today Assessment/Plan Assessment/Plan (1) Traumatic hematoma of right lower leg: CODE(S): S80.11XA - Contusion of right lower leg, initial encounter QUALIFIERS: Encounter type: sequela Qualified Code(s): S80.11XS - Contusion of right lower leg, sequela (2) Laceration without foreign body, right lower leg, sequela: CODE(S): S81.811S - Laceration without foreign body, right lower leg, sequela (3) Bilateral lower extremity edema: CODE(S): R60.0 - Localized edema (4) PVD (peripheral vascular disease): CODE(S): I73.9 - Peripheral vascular disease, unspecified (5) 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 She will be discharged from the wound healing center. As preventive measures: Pad and protect the affected areas of the right lower extremity, and continue to avoid friction. The daily use of compression stockings is recommended. Avoid prolonged standing and/or dangling of legs. When seated, feet should be elevated at chest level. Frequent ambulation is encouraged. Follow-up: Return to the wound healing center on an as-needed basis should wounds recur or new wounds develop. Note: [employer] speech recognition tape stringer software was used to create portions of this document. Sound-alike and misspelled words, as well as other tape stringer errors may be contained in the documentation.
== END 2021-07-16 11:42 | disposition home or self-care (01) ==
LOC: WC 10:45
PROVIDERS: PCP Family Medicine; Referring Provider Nurse Practitioner Family; Visit Provider Nurse Practitioner Family
DX: I83.018 Varicose veins of right lower extremity with ulcer other part of lower leg (principal); L97.812 Non-pressure chronic ulcer of other part of right lower leg with fat layer exposed; S80.11XS Contusion of right lower leg, sequela; S81.811S Laceration without foreign body, right lower leg, sequela; R60.0 Localized edema; I73.9 Peripheral vascular disease, unspecified; I25.10 Atherosclerotic heart disease of native coronary artery without angina pectoris; I13.0 Hypertensive heart and chronic kidney disease with heart failure and stage 1 through stage 4 chronic kidney disease, or unspecified chronic kidney disease; I50.9 Heart failure, unspecified; N18.30 Chronic kidney disease, stage 3 unspecified; J45.909 Unspecified asthma, uncomplicated; Z79.82 Long term (current) use of aspirin; Z86.718 Personal history of other venous thrombosis and embolism
CPT/HCPCS: 11042; 99213; G0463

== ENCOUNTER 2022-04-09 12:06 | Inpatient (IN) | payer MEDICARE, SELFPAY ==
[2022-04-09 12:07] VITALS: BP 164/71; PULSE 94; RESP 14; TEMP 36.5; O2SAT 98; BMI 25.4
--- NOTE | 2022-04-09 12:23 | CT_ITS ---
We are attempting to reach an attending provider to discuss findings. An addendum with communication details will be sent when the communication is complete. EXAM: CT ABDOMEN AND PELVIS WITH INTRAVENOUS CONTRAST CLINICAL INDICATION: diffuse abd pain, n/v -- IV PO Contrast TECHNIQUE: Helically acquired images were obtained of the abdomen and pelvis with intravenous contrast. This CT exam was performed using one or more of the following dose reduction techniques: automated exposure control, adjustment of the mA and/or kV according to patient size, and/or use of iterative reconstruction technique. This report was created using [employer] report [employer] technology. CONTRAST: Oral and amp; IV Gastrografin and amp; 100mL Isovue-300 COMPARISON: CT Abdomen Pelvis dated june 11 2021 FINDINGS: LOWER THORAX: Stable mild cardiomegaly. Small hiatal hernia. ABDOMEN: LIVER: Normal. Homogeneous. No focal mass. GALLBLADDER AND BILE DUCTS: Distention of the biliary tree which may be a normal postcholecystectomy finding. No evidence of an obstructing mass or common bile duct stone. PANCREAS: Normal. No focal cystic or solid mass. SPLEEN: Normal. Normal size without focal cystic or solid mass. ADRENALS: Normal. No nodules. KIDNEYS AND URETERS: Normal. Normal renal size and position. No hydronephrosis. STOMACH AND BOWEL: Dilated small bowel loops noted associated with small bowel feces at the transition point to nondistended. Small bowel. The appearance suggestive of small bowel obstruction secondary to inflammatory bowel disease. Diverticulosis of the colon noted without evidence of acute diverticulitis. PELVIS: APPENDIX: No evidence of acute appendicitis. BLADDER: Normal. REPRODUCTIVE: Uterus is absent. ABDOMEN and PELVIS: INTRAPERITONEAL SPACE: Normal. No ascites or other fluid collection. No free air. BONES/JOINTS: Normal. No suspicious lytic or blastic abnormality. SOFT TISSUES: Normal. No discrete abdominal or pelvic wall hernia. VASCULATURE: Normal. Abdominal aorta is non-dilated. LYMPH NODES: Normal. No enlarged lymph nodes. CT/Abdomen/Pelvis WITH Contrast IMPRESSION: 1. 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 2. Diverticulosis coli. Electronically Signed: Baldo Echols MD at 15:30 EDT Reading Location ID and State: [address] [place] [address] Tel , Service support ,
--- NOTE | 2022-04-09 12:24 | ED.VIS.GI ---
HPI HPI - GI History of Present Illness Chief Complaint: Abd Pain Informant: patient Abdominal Pain/Flank Pain Onset: Today (Around 4 hours ago) Context: Sudden Onset (After having what appeared to be a normal bowel movement) Timing: Continuous Quality: Aching Location: Diffuse Current Severity: Severe Maximum Severity: Severe Worsened by: Nothing Relieved by: Nothing Nausea/Vomiting/Emesis GI Symptom: Positive for Nausea and Vomiting Onset: Today Quality: Positive for Nonbilious; Negative for Blood streaks, Coffee ground or Hematemesis Severity: Moderate Diarrhea/Melena/Hematochezia GI Symptom: Negative for Diarrhea, Melena or Hematochezia Associated Symptoms Associated Symptoms: Negative for Dysuria, Frequency, Hematuria or Urgency Narrative Narrative: Abdominal pain vomiting it feels similar to when she had prior bowel obstruction. She has had to have a partial small bowel resection because of 1 of these. No recent illness, symptoms just started this morning. No urinary symptoms. Nonbilious nonbloody emesis. [facility] Medical History (Updated 04/09/22 @ 17:43 by Madelin Lopez) Bilateral lower extremity edema Broken heart syndrome Congestive heart failure DVT (deep venous thrombosis) Endometrial cancer GI bleed History of breast cancer History of stroke Hypertension Kidney disease Kidney stones Laceration without foreign body, right lower leg, sequela Myocardial infarction Osteoporosis PVD (peripheral vascular disease) Seizures Stroke/cerebrovascular accident Traumatic hematoma of right lower leg Venous ulcer of right lower extremity with varicose veins Home Medications albuterol sulfate 90 mcg/actuation aerosol inhaler 2 puff inhalation Q4H PRN PRN Shortness Of Breath 03/20/15 [History Last Taken 11/30/20] aspirin 81 mg chewable tablet 81 mg PO QHS heart health/stroke 03/20/15 [History Last Taken 12/01/20] montelukast 10 mg tablet 10 mg PO QHS asthma 03/20/15 [History Last Taken 12/01/20] spironolactone 25 mg tablet 25 mg PO DAILY water pill 03/20/15 [History Last Taken 12/01/20] torsemide 20 mg tablet 10 mg PO DAILY water pill 03/20/15 [History Last Taken 12/01/20] omeprazole 40 mg capsule,delayed release 40 mg PO PRN PRN stomach 06/14/19 [History Last Taken 12/02/20] losartan 25 mg tablet 12.5 - 25 mg PO DAILY BP 12/02/20 [History Last Taken 12/01/20] budesonide-formoterol HFA 160 mcg-4.5 mcg/actuation aerosol inhaler 2 puff inhalation BID breathing 02/25/21 [History Last Taken Unknown] nitrofurantoin macrocrystal 100 mg capsule (Macrodantin) 100 mg PO .PRN #20 caps 08/20/21 [Rx Last Taken Unknown] clopidogrel 75 mg tablet 1 tab PO DAILY 04/09/22 [History Last Taken Unknown] febuxostat 40 mg tablet 1 tab PO DAILY 04/09/22 [History Last Taken Unknown] Allergy/AdvReac Type Severity Reaction Status Date / Time diazepam [From Valium] Allergy seizures Verified 04/09/22 17:29 diphenhydramine HCl Allergy difficulty Verified 04/09/22 17:29 [From Benadryl] breathing esomeprazole magnesium Allergy chest pain Verified 04/09/22 17:29 [From Nexium] NSAIDS (Non-Steroidal Allergy Other Verified 04/09/22 17:29 Anti-Inflamma Penicillins Allergy Rash Verified 04/09/22 17:29 pentazocine lactate Allergy quit Verified 04/09/22 17:29 [From Talwin] breathing Sulfa (Sulfonamide Allergy Rash Verified 04/09/22 17:29 Antibiotics) sulfur dioxide Allergy massive Verified 04/09/22 17:29 headaches Family History Mother Cancer stomach throat Thyroid disorder Father Heart disease Surgical History H/O bilateral mastectomy H/O bilateral oophorectomy H/O dilation and curettage History of cholecystectomy History of colon surgery S/P RAFIA (total abdominal hysterectomy) Social History Smoking Status: Never smoker alcohol intake: never substance use type: does not use caffeine: Yes what type of physical activity do you participate in: walking and bicycling frequency: daily seatbelt use: always do you feel safe at home: Yes additional social history: Russell- Both are retired ROS ROS ED Constitutional Constitutional ED: Denies chills or fever(s) Eyes Eyes: Denies change in vision or diplopia ENT ENT ED: Denies rhinorrhea or sore throat Cardiovascular Cardiovascular: Denies chest pain or palpitations Respiratory/Chest Respiratory/Chest: Denies cough or dyspnea Gastrointestinal Gastrointestinal: Reports abdominal pain, nausea and vomiting; Denies diarrhea Genitourinary Genitourinary ED: Denies dysuria or hematuria Musculoskeletal Musculoskeletal: Denies back pain or neck pain Integumentary Denies abscess or rash Neurologic Neurologic: Denies headache(s), paresthesias or weakness Psychiatric Psychiatric: Denies anxiety or suicidal thoughts EXAM Physical Exam Const Vital Signs: 04/09/22 12:07 04/09/22 14:02 Temperature 97.7 F L Temperature Source Temporal Pulse Rate 94 79 Respiratory Rate 14 Blood Pressure 164/71 H 159/76 H Blood Pressure Mean 102 103 Pulse Ox 98 99 Oxygen Delivery Method Room Air Room Air Positive well nourished and well developed General Appearance ED: well developed and NAD HEENT Reports moist mucous membranes normocephalic and atraumatic Eyes PERRL and EOMs intact bilaterally Neck full ROM and supple Resp normal respiratory effort and clear to auscultation bilaterally Cardio regular rate, regular rhythm and no murmurs GI GI Narrative: Active bowel sounds, diffusely tender and distended. No guarding or rebound. Auscultation: normoactive bowel sounds Palpation: soft Back/Spine no CVA tenderness General Back: other FROM Extremity normal to inspection General Extremety ED: Negative for edema, pulses abnormal or tenderness General Extremity: Negative for edema or pulses abnormal Neuro oriented x3, CN's II-XII intact bilaterally, no sensory deficits noted and gait normal Sensorium / Orientation: awake and alert Motor Exam: strength 5/5 throughout Skin no rashes or lesions noted and no wounds MDM MDM MDM Narrative Medical decision making narrative: Work-up consistent with a small bowel obstruction. She does have a history of adhesions. Try to give her oral contrast but she was unable to tolerate it even after Zofran, she needed Reglan later, continues to have nausea and pain although the morphine doses were helping. We will place an NG tube here in the emergency department, plan is for admission will discuss with surgery as well. Lab Data Attestation: I reviewed the patient's lab results. Labs: Laboratory Results - last 24 hr 04/09/22 04/09/22 12:42 12:42 WBC 9.9 RBC 4.23 Hgb 13.2 Hct 41.4 MCV 97.9 MCH 31.2 MCHC 31.9 L RDW Std Deviation 47.8 H RDW Coeff of Yariel 13.2 Plt Count 257 MPV 8.6 Immature Gran % (Auto) 0.200 Neut % (Auto) 84.2 H Lymph % (Auto) 9.3 L [place] % (Auto) 5.7 Eos % (Auto) 0.3 Baso % (Auto) 0.3 Absolute Neuts (auto) 8.3 H Absolute Lymphs (auto) 0.92 Nucleated RBC % 0 Sodium 139 Potassium 4.7 Chloride 105 Carbon Dioxide 29.0 Anion Gap 5 BUN 40 H Creatinine 1.34 H Estim Creat Clear Calc 24.00 Est GFR (MDRD) Af Amer 49 L Est GFR (MDRD) Non-Af 40 L BUN/Creatinine Ratio 29.9 H Glucose 119 H Calcium 9.6 Total Bilirubin 0.90 AST 20 ALT 23 Alkaline Phosphatase 132 H Total Protein 7.2 Albumin 3.8 Globulin 3.4 Albumin/Globulin Ratio 1.1 Lipase 398 H Radiography Diagnostic Testing: Clinical Impression(s) from Imaging Studies Abdomen/Pelvis CT 04/09/22 12:23 IMPRESSION: 1. 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 2. Diverticulosis coli. Electronically Signed: Baldo Echols MD at 15:30 EDT Reading Location ID and State: [facility] / [place] Tel , Service support , ADDENDUM: 04/09/22 1545 IMPRESSION: 1. 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 2. Diverticulosis coli. N.B. : The above Results were Read Back by Baldo Echols MD to Dr. Nupur MD, and understanding confirmed on 04/09/2022 15:38:25 (ET). Electronically Signed: Baldo Echols MD at 15:30 EDT , On my interpretation, 1 view KUB shows good NG tube placement in the stomach. Discharge Plan Dx/Rx/DC Orders Clinical Impression: Small bowel obstruction Disposition Disposition: Acute Care Hospital [facility] Discharge Date/Time: 04/09/22 17:04
[2022-04-09] MEDS: Morphine 2 MG/ML Syringe IV ×2 (12:40→14:23)
[2022-04-09] MEDS: Ondansetron 4 MG/2 ML Vial IV ×2 (12:40→20:14)
[2022-04-09] MEDS: 0.9% Normal Saline 1,000 ML 125 ML IV (12:40)
[2022-04-09 12:56] LABS: Absolute Lymphocyte Count 0.92 X10^3/uL (0.83-4.51); Absolute Neutrophil Count 8.3 X10^3/uL (2.0-7.7); Basophil# 0.03 X10^3/uL; Basophil% 0.3 % (0-1); Eosinophil# 0.03 X10^3/uL; Eosinophils% 0.3 % (0-5); Hematocrit 41.4 % (37-47); Hemoglobin 13.2 g/dL (12.0-15.0); Lymphocyte # 0.92 X10^3/ul (0.83-4.51); Lymphocyte % 9.3 % (19-41); Mean Corp Hgb Conc 31.9 g/dL (32-36); Mean Corpuscular Hgb 31.2 pg (27.0-32.0); Mean Corpuscular Volume 97.9 fL (81-99); Mean Platelet Vol. 8.6 fl (6.2-12.0); Monocyte# 0.56 X10^3/uL; Monocyte% 5.7 % (0-10); NRBC Flagged by Analyzer 0 % (0-5); Neutrophil # 8.34 X10^3/uL (2.7-7.7); Neutrophil % 84.2 % (47-70); Platelet Count 257 K/mm3 (150-450); RBC Distribution Width CV 13.2 % (11.6-14.6); RBC Distribution Width SD 47.8 fl (35.1-43.9); Red Blood Count 4.23 M/mm3 (4.2-5.4); White Blood Count 9.9 K/mm3 (4.4-11.0)
[2022-04-09 13:09] LABS: ALB/GLOB Ratio 1.1 RATIO (0.9-2.4); AST(SGOT) 20 U/L (15-37); Alanine Aminotransfer ALT/SGPT 23 U/L (13-56); Albumin, Serum 3.8 g/dL (3.2-5.0); Alkaline Phosphatase 132 U/L (45-117); Anion Gap 5 (5-15); BUN 40 mg/dL (7-18); BUN/Creat Ratio 29.9 RATIO (10-20); Calcium,Total 9.6 mg/dL (8.5-10.1); Chloride 105 mmol/L (98-107); Creatinine, Serum 1.34 mg/dL (0.55-1.02); EST Glomerular Filtration Rate 40 mL/min (>60); Est Glom Filt Rate - Afr Amer 49 mL/min (>60); Globulin 3.4 g/dL (2.2-4.2); Glucose 119 mg/dL (74-106); Lipase 398 U/L (73-393); Potassium 4.7 mmol/L (3.5-5.1); Protein, Total 7.2 g/dL (6.4-8.2); Sodium Level 139 mmol/L (136-145)
[2022-04-09 14:02] VITALS: BP 159/76; PULSE 79; O2SAT 99
[2022-04-09] MEDS: Metoclopramide 10 MG/2 ML Vial 5 MG IV (14:23)
[2022-04-09] MEDS: Morphine 4 MG/ML Syringe 2 MG IV (15:49)
[2022-04-09] MEDS: Midazolam 2 MG/2 ML Syringe IV (15:50)
[2022-04-09] MEDS: Oxymetazoline 0.05% 1 SPRAY SPRAY.BTL 2 SPRAY NASAL (15:55)
[2022-04-09 16:04] VITALS: BP 144/64; PULSE 87; RESP 17; TEMP 36.1; O2SAT 96
--- NOTE | 2022-04-09 16:04 | RAD_ITS ---
EXAM: XR ABDOMEN, 1 VIEW CLINICAL INDICATION: NG Insertion TECHNIQUE: Frontal supine view of the abdomen/pelvis. This report was created using [employer] report generation technology. COMPARISON: None. FINDINGS: LOWER THORAX: Borderline cardiomegaly. GASTROINTESTINAL TRACT: Incomplete evaluation of the bowel. ORGANS: No organomegaly. BONES/JOINTS: No acute pathology. SOFT TISSUES: No pathological calcification. TUBES, LINES AND DEVICES: Enteric tube tip in the stomach. OTHER FINDINGS: Only the upper abdomen is included on this exam. RAD/Abdomen Single View (Portable) IMPRESSION: Satisfactory endogastric tube placement. Electronically Signed: Baldo Echols MD at 16:44 EDT ,
--- NOTE | 2022-04-09 16:15 | HP.PCM_ITS ---
Documented by User: JONAS Aburto 04/09/22 16:32 HPI - General General Date of Admission: 04/09/22 Date of Service: 04/09/22 Chief Complaint: Abdominal pain, N/V HPI Narrative WALT DONATO, is a 81 F who presents with complaints of sudden onset abdominal pain and nausea following a normal seeming BM. Patient has a history of SBO with adhesions. Patient received Zofran and Reglan for nausea. Patient was unable to drink p.o. contrast despite the administration of both medications. Patient given morphine for pain in ER and NG tube was placed. Patient also has a medical history of hypertension, CHF, CAD, GERD, stage III chronic kidney disease. [facility] Medical History Bilateral lower extremity edema Broken heart syndrome Congestive heart failure Endometrial cancer History of breast cancer History of stroke Hypertension Laceration without foreign body, right lower leg, sequela Myocardial infarction PVD (peripheral vascular disease) Traumatic hematoma of right lower leg Venous ulcer of right lower extremity with varicose veins Home Medications albuterol sulfate 90 mcg/actuation aerosol inhaler 2 puff inhalation Q4H PRN PRN Shortness Of Breath 03/20/15 [History Last Taken 11/30/20] aspirin 81 mg chewable tablet 81 mg PO QHS heart health/stroke 03/20/15 [History Last Taken 12/01/20] montelukast 10 mg tablet 10 mg PO QHS asthma 03/20/15 [History Last Taken 12/01/20] spironolactone 25 mg tablet 25 mg PO DAILY water pill 03/20/15 [History Last Taken 12/01/20] torsemide 20 mg tablet 10 mg PO DAILY water pill 03/20/15 [History Last Taken 12/01/20] omeprazole 40 mg capsule,delayed release 40 mg PO PRN PRN stomach 06/14/19 [History Last Taken 12/02/20] losartan 25 mg tablet 12.5 - 25 mg PO DAILY BP 12/02/20 [History Last Taken 12/01/20] budesonide-formoterol HFA 160 mcg-4.5 mcg/actuation aerosol inhaler 2 puff inhalation BID breathing 02/25/21 [History Last Taken Unknown] nitrofurantoin macrocrystal 100 mg capsule (Macrodantin) 100 mg PO .PRN #20 caps 08/20/21 [Rx Last Taken Unknown] clopidogrel 75 mg tablet 1 tab PO DAILY 04/09/22 [History Last Taken Unknown] febuxostat 40 mg tablet 1 tab PO DAILY 04/09/22 [History Last Taken Unknown] Allergy/AdvReac Type Severity Reaction Status Date / Time diazepam [From Valium] Allergy seizures Verified 04/09/22 17:29 diphenhydramine HCl Allergy difficulty Verified 04/09/22 17:29 [From Benadryl] breathing esomeprazole magnesium Allergy chest pain Verified 04/09/22 17:29 [From Nexium] NSAIDS (Non-Steroidal Allergy Other Verified 04/09/22 17:29 Anti-Inflamma Penicillins Allergy Rash Verified 04/09/22 17:29 pentazocine lactate Allergy quit Verified 04/09/22 17:29 [From Talwin] breathing Sulfa (Sulfonamide Allergy Rash Verified 04/09/22 17:29 Antibiotics) sulfur dioxide Allergy massive Verified 04/09/22 17:29 headaches Family History Mother Cancer stomach throat Thyroid disorder Father Heart disease Surgical History H/O bilateral mastectomy H/O bilateral oophorectomy H/O dilation and curettage History of cholecystectomy History of colon surgery S/P RAFIA (total abdominal hysterectomy) Social History Smoking Status: Never smoker alcohol intake: never substance use type: does not use caffeine: Yes what type of physical activity do you participate in: walking and bicycling frequency: daily seatbelt use: always do you feel safe at home: Yes additional social history: Kade Higgins are retired ROS Constitutional Constitutional: Denies anorexia, change in weight, chills, fatigue, fever(s) or malaise Cardiovascular Cardiovascular: Denies chest pain, edema or palpitations Respiratory/Chest Respiratory/Chest: Denies cough, shortness of breath at rest, shortness of breath with exertion or wheezing Gastrointestinal Gastrointestinal: Reports abdominal pain, nausea and vomiting; Denies constipation or diarrhea Genitourinary Genitourinary: Denies dysuria Musculoskeletal Musculoskeletal: Denies back pain, extremity pain, joint pain or joint stiffness Integumentary Integumentary: Denies dry skin Neurologic Neurologic: Denies abnormal gait, abnormal speech, confusion, dizziness or focal weakness Psychiatric Psychiatric: Denies anxiety or depression Endocrine Endocrinology: Denies change in body appearance Hematologic/Lymphatic Hematologic/Lymphatic: Denies anemia Vital Signs Vital Signs Vital Signs: 04/09/22 12:07 04/09/22 14:02 04/09/22 16:04 Temperature 97.7 F L 97.0 F L Temperature Source Temporal Temporal Pulse Rate 94 79 87 Respiratory Rate 14 17 Blood Pressure 164/71 H 159/76 H 144/64 H Blood Pressure Mean 102 103 90 Pulse Ox 98 99 96 Oxygen Delivery Method Room Air Room Air Room Air Weight Weight: 135 lb Body Mass Index (BMI) 25.4 Physical Exam Const alert, oriented x3 and no apparent distress HEENT normocephalic, head/scalp atraumatic and moist oral mucous membranes Eyes conjunctivae normal and no scleral icterus Neck no lymphadenopathy and supple General: trachea midline Resp normal respiratory effort, normal air movement and clear to auscultation bilaterally Cardio regular rate, regular rhythm, S1 normal heart sound, S2 normal heart sound and peripheral pulses 2+ throughout GI non-tender GI Narrative: NG intact with green fluid in NG tube. Connected to LIWS. Confirmation xray in process. Inspection: abdominal distention and GI tube present Auscultation: hypoactive bowel sounds Extremity normal capillary refill and no clubbing, cyanosis or edema Skin Lesions: no lesions Rashes: no rashes Neuro oriented x3, moves all extremities, no focal motor deficits and no sensory deficits noted Psych thought process normal, cooperative and affect normal Results Lab / Micro Data Result Diagrams: 04/09/22 12:42 04/09/22 12:42 Labs: Laboratory Results - last 24 hr 04/09/22 12:42: WBC 9.9, RBC 4.23, Hgb 13.2, Hct 41.4, MCV 97.9, MCH 31.2, MCHC 31.9 L, RDW Std Deviation 47.8 H, RDW Coeff of Yariel 13.2, Plt Count 257, MPV 8.6, Immature Gran % (Auto) 0.200, Neut % (Auto) 84.2 H, Lymph % (Auto) 9.3 L, [place] % (Auto) 5.7, Eos % (Auto) 0.3, Baso % (Auto) 0.3, Absolute Neuts (auto) 8.3 H, Absolute Lymphs (auto) 0.92, Nucleated RBC % 0 04/09/22 12:42: Sodium 139, Potassium 4.7, Chloride 105, Carbon Dioxide 29.0, Anion Gap 5, BUN 40 H, Creatinine 1.34 H, Estim Creat Clear Calc 24.00, Est GFR (MDRD) Af Amer 49 L, Est GFR (MDRD) Non-Af 40 L, BUN/Creatinine Ratio 29.9 H, Glucose 119 H, Calcium 9.6, Total Bilirubin 0.90, AST 20, ALT 23, Alkaline Phosphatase 132 H, Total Protein 7.2, Albumin 3.8, Globulin 3.4, Albumin/Globulin Ratio 1.1, Lipase 398 H Radiology Impression Abdomen/Pelvis CT 04/09/22 12:23 IMPRESSION: 1. 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 2. Diverticulosis coli. Electronically Signed: Baldo Echols MD at 15:30 EDT , ADDENDUM: 04/09/22 1545 IMPRESSION: 1. 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 2. Diverticulosis coli. N.B. : The above Results were Read Back by Baldo Echols MD to Dr. Nupur MD, and understanding confirmed on 04/09/2022 15:38:25 (ET). Electronically Signed: Baldo Echols MD at 15:30 EDT , Assessment & Plan Assessment/Plan (1) Small bowel obstruction: PLAN: Plan 1. Small bowel obstruction -Admit to [facility] -Consult surgery, case discussed with Dr. Turk. Patient has seen Dr. David and Dr. Ramírez in the past -N.p.o. -Main obtain NG to low intermittent wall suction -CBC and BMP in a.m. -Normal saline 75 mL/h -IV Pepcid ordered -IV Zofran ordered as needed 2. Hypertension -Vital signs per protocol, currently stable -Hold losartan while n.p.o. -As needed antihypertensives IV 3. Congestive heart failure -Patient follows with a specialist in [place] it is unknown whether she has preserved EF or not -Hold p.o. torsemide and spironolactone while n.p.o. 4. CKD stage IIIb -Creatinine 1.34 upon review of labs it appears that patient's baseline is approximately 1.1-1.2 -BMP daily 5. Asthma -Currently stable, patient on room air -Continue scheduled budesonide and as needed albuterol -Oxygen as needed per protocol DVT prophylaxis-SCDs This patient was seen by JONAS Aburto under the supervision of Dr. De La Rosa. 30 minutes spent in clinical coordination of patient's plan of care. Documented by User: Dr. Julius De La Rosa MD 04/09/22 17:34 HPI - General General Date of Admission: 04/09/22 [facility] Medical History Bilateral lower extremity edema Broken heart syndrome Congestive heart failure Endometrial cancer History of breast cancer History of stroke Hypertension Laceration without foreign body, right lower leg, sequela Myocardial infarction PVD (peripheral vascular disease) Traumatic hematoma of right lower leg Venous ulcer of right lower extremity with varicose veins Home Medications albuterol sulfate 90 mcg/actuation aerosol inhaler 2 puff inhalation Q4H PRN PRN Shortness Of Breath 03/20/15 [History Last Taken 11/30/20] aspirin 81 mg chewable tablet 81 mg PO QHS heart health/stroke 03/20/15 [History Last Taken 12/01/20] montelukast 10 mg tablet 10 mg PO QHS asthma 03/20/15 [History Last Taken 12/01/20] spironolactone 25 mg tablet 25 mg PO DAILY water pill 03/20/15 [History Last Taken 12/01/20] torsemide 20 mg tablet 10 mg PO DAILY water pill 03/20/15 [History Last Taken 12/01/20] omeprazole 40 mg capsule,delayed release 40 mg PO PRN PRN stomach 06/14/19 [History Last Taken 12/02/20] losartan 25 mg tablet 12.5 - 25 mg PO DAILY BP 12/02/20 [History Last Taken 12/01/20] budesonide-formoterol HFA 160 mcg-4.5 mcg/actuation aerosol inhaler 2 puff inhalation BID breathing 02/25/21 [History Last Taken Unknown] nitrofurantoin macrocrystal 100 mg capsule (Macrodantin) 100 mg PO .PRN #20 caps 08/20/21 [Rx Last Taken Unknown] clopidogrel 75 mg tablet 1 tab PO DAILY 04/09/22 [History Last Taken Unknown] febuxostat 40 mg tablet 1 tab PO DAILY 04/09/22 [History Last Taken Unknown] Allergy/AdvReac Type Severity Reaction Status Date / Time diazepam [From Valium] Allergy seizures Verified 04/09/22 17:29 diphenhydramine HCl Allergy difficulty Verified 04/09/22 17:29 [From Benadryl] breathing esomeprazole magnesium Allergy chest pain Verified 04/09/22 17:29 [From Nexium] NSAIDS (Non-Steroidal Allergy Other Verified 04/09/22 17:29 Anti-Inflamma Penicillins Allergy Rash Verified 04/09/22 17:29 pentazocine lactate Allergy quit Verified 04/09/22 17:29 [From Talwin] breathing Sulfa (Sulfonamide Allergy Rash Verified 04/09/22 17:29 Antibiotics) sulfur dioxide Allergy massive Verified 04/09/22 17:29 headaches Family History Mother Cancer stomach throat Thyroid disorder Father Heart disease Surgical History H/O bilateral mastectomy H/O bilateral oophorectomy H/O dilation and curettage History of cholecystectomy History of colon surgery S/P RAFIA (total abdominal hysterectomy) Social History Smoking Status: Never smoker alcohol intake: never substance use type: does not use caffeine: Yes what type of physical activity do you participate in: walking and bicycling frequency: daily seatbelt use: always do you feel safe at home: Yes additional social history: Russell- Both are retired Results Lab / Micro Data Result Diagrams: 04/09/22 12:42 04/09/22 12:42 Assessment & Plan Assessment/Plan (1) Small bowel obstruction: Charges/Coding Addendum Addendum: Addendum: Dr. De La Rosa I personally examined the patient and reviewed the chart. I agree with the above. 81-year-old female with previous history of small bowel obstructions presents to the hospital with sharp abdominal pain that started this morning. She did have some nausea and vomiting and presented to the hospital where CT scan of her abdomen pelvis demonstrated small bowel obstruction. Because of her nausea an NG tube was placed and has had some improvement in her symptomatology. She has had multiple previous small bowel obstructions occasionally they have resolved without any intervention therefore we will make her n.p.o. and put her on some antinausea medications and consult general surgery for assistance. Clinical time spent in all aspects of patient care: 40 minutes Visit Charges Inpatient E&M: 20188 Init Hosp L3
[2022-04-09 17:11] VITALS: BMI 26.5
[2022-04-09 17:25] VITALS: BP 150/58; PULSE 80; RESP 16; TEMP 36.7; O2SAT 97
[2022-04-09] MEDS: 0.9% Normal Saline 1,000 ML 75 ML IV (18:05)
[2022-04-09] MEDS: 0.9% Saline Lock 10 ML Syringe IV ×3 (18:07→22:28)
[2022-04-09 20:16] VITALS: BP 145/62; PULSE 84; RESP 18; TEMP 37.3; O2SAT 94
[2022-04-09] MEDS: Famotidine 200 MG/20 ML MDV 20 MG in 0.9% Normal Saline (Pres. free 8 ML 300 MG IV (21:42)
[2022-04-09] MEDS: proCHLORPERazine 10 MG/2 ML Vial 5 MG IV (22:28)
[2022-04-10 02:49] VITALS: BP 138/51; PULSE 84; RESP 18; TEMP 37.1; O2SAT 96
[2022-04-10] MEDS: 0.9% Normal Saline 1,000 ML 75 ML IV ×2 (02:53→16:14)
[2022-04-10] MEDS: proCHLORPERazine 10 MG/2 ML Vial 5 MG IV ×2 (02:53→14:41)
[2022-04-10] MEDS: 0.9% Saline Lock 10 ML Syringe IV ×2 (02:53→21:41)
[2022-04-10 04:59] LABS: Absolute Neutrophil Count 10.9 X10^3/uL (2.0-7.7); Basophil# 0.02 X10^3/uL; Basophil% 0.2 % (0-1); Hemoglobin 12.5 g/dL (12.0-15.0); Lymphocyte % 3.3 % (19-41); Mean Corp Hgb Conc 32.1 g/dL (32-36); Mean Corpuscular Hgb 31.6 pg (27.0-32.0); Mean Corpuscular Volume 98.7 fL (81-99); Mean Platelet Vol. 8.5 fl (6.2-12.0); Monocyte# 0.63 X10^3/uL; Monocyte% 5.2 % (0-10); NRBC Flagged by Analyzer 0 % (0-5); Neutrophil # 10.94 X10^3/uL (2.7-7.7); Neutrophil % 91.1 % (47-70); POSITIVE DIFFERENTIAL YES; Platelet Count 213 K/mm3 (150-450); RBC Distribution Width CV 13.3 % (11.6-14.6); RBC Distribution Width SD 49.1 fl (35.1-43.9); Red Blood Count 3.95 M/mm3 (4.2-5.4)
[2022-04-10 05:16] LABS: Anion Gap 6 (5-15); BUN 27 mg/dL (7-18); Calcium,Total 8.6 mg/dL (8.5-10.1); Chloride 111 mmol/L (98-107); EST Glomerular Filtration Rate 56 mL/min (>60); Est Glom Filt Rate - Afr Amer 68 mL/min (>60); Estimated Creatinine Clearance 32.17 ml/min; Glucose 134 mg/dL (74-106); Potassium 4.2 mmol/L (3.5-5.1); Sodium Level 142 mmol/L (136-145)
[2022-04-10 05:27] LABS: Differential Indicated SCAN CRITERIA MET
[2022-04-10 06:22] LABS: Differential Comment SCANNED
[2022-04-10 07:56] VITALS: BP 139/51; PULSE 82; RESP 18; TEMP 37.5; O2SAT 94
[2022-04-10] MEDS: Ondansetron 4 MG/2 ML Vial IV ×2 (08:02→21:41)
--- NOTE | 2022-04-10 10:52 | PN.HOSP_ITS ---
Documented by User: Lolis Zuh NP-Alfa 04/10/22 10:55 Subjective Subjective Patient seen and examined. Patient lying in bed no distress noted. NG is draining green-yellow drainage, low intermittent wall suction. Objective Data Objective Data Vital Signs: Vital Signs Temp Pulse Resp BP Pulse Ox O2 Del Method 99.5 F H 82 18 139/51 H 94 Room Air 04/10/22 07:56 04/10/22 07:56 04/10/22 07:56 04/10/22 07:56 04/10/22 07:56 04/10/22 08:00 Oxygen Delivery Method Room Air Weight: 140 lb 6 oz Body Mass Index (BMI) 26.5 Intake & Output: Intake and Output for Last 24 Hours 04/08/22 04/09/22 04/10/22 23:59 23:59 23:59 Intake Total 813.33 / 813.33 720 / 720 Output Total 150 / 150 50 / 50 Balance 663.33 / 663.33 670 / 670 Lab / Micro Data Result Diagrams: 04/10/22 04:05 04/10/22 04:05 Labs: Laboratory Results - last 24 hr 04/09/22 12:42: WBC 9.9, RBC 4.23, Hgb 13.2, Hct 41.4, MCV 97.9, MCH 31.2, MCHC 31.9 L, RDW Std Deviation 47.8 H, RDW Coeff of Yariel 13.2, Plt Count 257, MPV 8.6, Immature Gran % (Auto) 0.200, Neut % (Auto) 84.2 H, Lymph % (Auto) 9.3 L, [place] % (Auto) 5.7, Eos % (Auto) 0.3, Baso % (Auto) 0.3, Absolute Neuts (auto) 8.3 H, Absolute Lymphs (auto) 0.92, Nucleated RBC % 0 04/09/22 12:42: Sodium 139, Potassium 4.7, Chloride 105, Carbon Dioxide 29.0, Anion Gap 5, BUN 40 H, Creatinine 1.34 H, Estim Creat Clear Calc 24.00, Est GFR (MDRD) Af Amer 49 L, Est GFR (MDRD) Non-Af 40 L, BUN/Creatinine Ratio 29.9 H, Glucose 119 H, Calcium 9.6, Total Bilirubin 0.90, AST 20, ALT 23, Alkaline Phosphatase 132 H, Total Protein 7.2, Albumin 3.8, Globulin 3.4, Albumin/Globulin Ratio 1.1, Lipase 398 H 04/10/22 04:05: WBC 12.0 H, RBC 3.95 L, Hgb 12.5, Hct 39.0, MCV 98.7, MCH 31.6, MCHC 32.1, RDW Std Deviation 49.1 H, RDW Coeff of Yariel 13.3, Plt Count 213, MPV 8.5, Immature Gran % (Auto) 0.200, Neut % (Auto) 91.1 H, Lymph % (Auto) 3.3 L, M gem % (Auto) 5.2, Eos % (Auto) 0.0, Baso % (Auto) 0.2, Absolute Neuts (auto) 10.9 H, Absolute Lymphs (auto) 0.40 L, Nucleated RBC % 0, Differential Comment SCANNED 04/10/22 04:05: Sodium 142, Potassium 4.2, Chloride 111 H, Carbon Dioxide 25.0, Anion Gap 6, BUN 27 H, Creatinine 1.00, Estim Creat Clear Calc 32.17, Est GFR (MDRD) Af Amer 68, Est GFR (MDRD) Non-Af 56 L, BUN/Creatinine Ratio 27.0 H, Glucose 134 H, Calcium 8.6 Radiography Diagnostic Testing: Radiology Impression Abdomen/Pelvis CT 04/09/22 12:23 IMPRESSION: 1. 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 2. Diverticulosis coli. Electronically Signed: Baldo Echols MD at 15:30 EDT , ADDENDUM: 04/09/22 154 IMPRESSION: 1. 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 2. Diverticulosis coli. N.B. : The above Results were Read Back by Baldo Echols MD to Dr. Nupur MD, and understanding confirmed on 04/09/2022 15:38:25 (ET). Electronically Signed: Baldo Echols MD at 15:30 EDT , KUB X-Ray 04/09/22 16:04 IMPRESSION: Satisfactory endogastric tube placement. Electronically Signed: Baldo Echols MD at 16:44 EDT , Physical Exam Const alert, oriented x3 and no apparent distress HEENT normocephalic, head/scalp atraumatic and moist oral mucous membranes Eyes conjunctivae normal and no scleral icterus Neck no lymphadenopathy and supple General: trachea midline Resp normal respiratory effort, normal air movement and clear to auscultation bilaterally Cardio regular rate, regular rhythm, S1 normal heart sound, S2 normal heart sound and peripheral pulses 2+ throughout GI non-tender GI Narrative: NG intact with green fluid in NG tube. Connected to LIWS. Confirmation xray in process. Inspection: abdominal distention and GI tube present Auscultation: hypoactive bowel sounds Extremity normal capillary refill and no clubbing, cyanosis or edema Skin Lesions: no lesions Rashes: no rashes Neuro oriented x3, moves all extremities, no focal motor deficits and no sensory deficits noted Psych thought process normal, cooperative and affect normal Assessment & Plan Assessment/Plan (1) Small bowel obstruction: PLAN: Plan 1. Small bowel obstruction -Surgery following, case discussed with Dr. Turk. Patient has seen Dr. David and Dr. Ramírez in the past -N.p.o. -Maintain NG to low intermittent wall suction -CBC and BMP in a.m. -Normal saline 75 mL/h -IV Pepcid ordered -IV Zofran ordered as needed 2. Hypertension -Vital signs per protocol, currently stable -Hold losartan while n.p.o. -As needed antihypertensives IV 3. Congestive heart failure -Patient follows with a specialist in [place] it is unknown whether she has preserved EF or not -Hold p.o. torsemide and spironolactone while n.p.o. 4. CKD stage IIIb -Creatinine 1.00, improved -BMP daily 5. Asthma -Currently stable, patient on room air -Continue scheduled budesonide and as needed albuterol -Oxygen as needed per protocol DVT prophylaxis-SCDs This patient was seen by Lolis Zhu NP-C under the supervision of Dr. De La Rosa. 14 minutes spent in clinical coordination of patient's plan of care. Documented by User: Dr. Julius De La Rosa MD 04/10/22 13:00 Objective Data Lab / Micro Data Result Diagrams: 04/10/22 04:05 04/10/22 04:05 Assessment & Plan Assessment/Plan (1) Small bowel obstruction: Charges/Coding Addendum Addendum: Dr. De La Rosa I personally examined the patient and reviewed the chart. I agree with the above.? 81-year-old female with previous history of small bowel obstructions presents to the hospital with sharp abdominal pain that started this morning.? She did have some nausea and vomiting and presented to the hospital where CT scan of her abdomen pelvis demonstrated small bowel obstruction.? Because of her nausea an NG tube was placed and has had some improvement in her sy mptomatology.? She has had multiple previous small bowel obstructions occasionally they have resolved without any intervention therefore we will make her n.p.o. and put her on some antinausea medications and consult general surgery for assistance.? Clinical time spent in all aspects of patient care: 40 minutes 04/10/2022: Doing well, tolerating the NG tube. She does have Chloraseptic spray for sore throat and surgery recommends keeping the NG tube in for today. She can have ice chips and some sips of water. No significant nausea at this time and abdomen remains nontender. Clinical time spent in all aspects of patient care: 20 minutes Visit Charges Inpatient E&M: 54895 Subs Hosp L2
--- NOTE | 2022-04-10 11:05 | EX.PCM.CON.S ---
Assessment & Plan Assessment/Plan (1) Partial obstruction of small intestine: PLAN: At this point I think we should continue with the NG tube and gentle hydration. I think it is okay for her to have ice chips since hard candy and gum. We will see how she progresses over the next 24 hours. Possibly a Gastrografin small bowel follow-through similar to what she had back in 2020 would be appropriate to see if everything reaches the colon. HPI Consult Data Date of Consult: 04/10/22 HPI Narrative HPI Narrative: WALT DONATO, is a 81 F who presents with complaints of sudden onset abdominal pain and nausea following a normal seeming BM. Patient has a history of SBO with adhesions. Patient received Zofran and Reglan for nausea.? Patient was unable to drink p.o. contrast despite the administration of both medications.? Patient given morphine for pain in ER and NG tube was placed.? Patient also has a medical history of hypertension, CHF, CAD, GERD, stage III chronic kidney disease. Her CT scan was read as small bowel obstruction secondary to acute or chronic inflammation of her small bowel. Diverticulosis of the colon. Patient states that she is feeling much better today still has some slight nausea but abdominal pain has improved [facility] Medical History (Updated 04/09/22 @ 17:43 by Madelin Lopez) Bilateral lower extremity edema Broken heart syndrome Congestive heart failure DVT (deep venous thrombosis) Endometrial cancer GI bleed History of breast cancer History of stroke Hypertension Kidney disease Kidney stones Laceration without foreign body, right lower leg, sequela Myocardial infarction Osteoporosis PVD (peripheral vascular disease) Seizures Stroke/cerebrovascular accident Traumatic hematoma of right lower leg Venous ulcer of right lower extremity with varicose veins Home Medications albuterol sulfate 90 mcg/actuation aerosol inhaler 2 puff inhalation Q4H PRN PRN Shortness Of Breath 03/20/15 [History Last Taken 11/30/20] aspirin 81 mg chewable tablet 81 mg PO QHS heart health/stroke 03/20/15 [History Last Taken 12/01/20] montelukast 10 mg tablet 10 mg PO QHS asthma 03/20/15 [History Last Taken 12/01/20] spironolactone 25 mg tablet 25 mg PO DAILY water pill 03/20/15 [History Last Taken 12/01/20] torsemide 20 mg tablet 10 mg PO DAILY water pill 03/20/15 [History Last Taken 12/01/20] omeprazole 40 mg capsule,delayed release 40 mg PO PRN PRN stomach 06/14/19 [History Last Taken 12/02/20] losartan 25 mg tablet 12.5 - 25 mg PO DAILY BP 12/02/20 [History Last Taken 12/01/20] budesonide-formoterol HFA 160 mcg-4.5 mcg/actuation aerosol inhaler 2 puff inhalation BID breathing 02/25/21 [History Last Taken Unknown] nitrofurantoin macrocrystal 100 mg capsule (Macrodantin) 100 mg PO .PRN #20 caps 08/20/21 [Rx Last Taken Unknown] clopidogrel 75 mg tablet 1 tab PO DAILY 04/09/22 [History Last Taken Unknown] febuxostat 40 mg tablet 1 tab PO DAILY 04/09/22 [History Last Taken Unknown] Allergy/AdvReac Type Severity Reaction Status Date / Time diazepam [From Valium] Allergy seizures Verified 04/09/22 17:29 diphenhydramine HCl Allergy difficulty Verified 04/09/22 17:29 [From Benadryl] breathing esomeprazole magnesium Allergy chest pain Verified 04/09/22 17:29 [From Nexium] NSAIDS (Non-Steroidal Allergy Other Verified 04/09/22 17:29 Anti-Inflamma Penicillins Allergy Rash Verified 04/09/22 17:29 pentazocine lactate Allergy quit Verified 04/09/22 17:29 [From Talwin] breathing Sulfa (Sulfonamide Allergy Rash Verified 04/09/22 17:29 Antibiotics) sulfur dioxide Allergy massive Verified 04/09/22 17:29 headaches Family History Mother Cancer stomach throat Thyroid disorder Father Heart disease Surgical History H/O bilateral mastectomy H/O bilateral oophorectomy H/O dilation and curettage History of cholecystectomy History of colon surgery S/P RAFIA (total abdominal hysterectomy) Social History Smoking Status: Never smoker alcohol intake: never substance use type: does not use caffeine: Yes what type of physical activity do you participate in: walking and bicycling frequency: daily seatbelt use: always do you feel safe at home: Yes additional social history: Russell- Both are retired ROS Constitutional Constitutional: Denies chills or fatigue Cardiovascular Cardiovascular: Denies chest pain Respiratory/Chest Respiratory/Chest: Denies cough Gastrointestinal Gastrointestinal: Reports abdominal pain, bloating, nausea and vomiting Physical Exam Const alert, oriented x3 and no apparent distress HEENT normocephalic and head/scalp atraumatic Eyes PERRL and EOMs intact bilaterally Resp clear to auscultation bilaterally GI soft to palpation and non-distended GI Narrative: Patient does have some slight guarding to palpation. There is no rebound guarding or peritoneal signs. Lab / Micro Data Result Diagrams: 04/10/22 04:05 04/10/22 04:05 Labs: Laboratory Results - last 24 hr 04/09/22 12:42: WBC 9.9, RBC 4.23, Hgb 13.2, Hct 41.4, MCV 97.9, MCH 31.2, MCHC 31.9 L, RDW Std Deviation 47.8 H, RDW Coeff of Yariel 13.2, Plt Count 257, MPV 8.6, Immature Gran % (Auto) 0.200, Neut % (Auto) 84.2 H, Lymph % (Auto) 9.3 L, [place] % (Auto) 5.7, Eos % (Auto) 0.3, Baso % (Auto) 0.3, Absolute Neuts (auto) 8.3 H, Absolute Lymphs (auto) 0.92, Nucleated RBC % 0 04/09/22 12:42: Sodium 139, Potassium 4.7, Chloride 105, Carbon Dioxide 29.0, Anion Gap 5, BUN 40 H, Creatinine 1.34 H, Estim Creat Clear Calc 24.00, Est GFR (MDRD) Af Amer 49 L, Est GFR (MDRD) Non-Af 40 L, BUN/Creatinine Ratio 29.9 H, Glucose 119 H, Calcium 9.6, Total Bilirubin 0.90, AST 20, ALT 23, Alkaline Phosphatase 132 H, Total Protein 7.2, Albumin 3.8, Globulin 3.4, Albumin/Globulin Ratio 1.1, Lipase 398 H 04/10/22 04:05: WBC 12.0 H, RBC 3.95 L, Hgb 12.5, Hct 39.0, MCV 98.7, MCH 31.6, MCHC 32.1, RDW Std Deviation 49.1 H, RDW Coeff of Yariel 13.3, Plt Count 213, MPV 8.5, Immature Gran % (Auto) 0.200, Neut % (Auto) 91.1 H, Lymph % (Auto) 3.3 L, [place] % (Auto) 5.2, Eos % (Auto) 0.0, Baso % (Auto) 0.2, Absolute Neuts (auto) 10.9 H, Absolute Lymphs (auto) 0.40 L, Nucleated RBC % 0, Differential Comment SCANNED 04/10/22 04:05: Sodium 142, Potassium 4.2, Chloride 111 H, Carbon Dioxide 25.0, Anion Gap 6, BUN 27 H, Creatinine 1.00, Estim Creat Clear Calc 32.17, Est GFR (MDRD) Af Amer 68, Est GFR (MDRD) Non-Af 56 L, BUN/Creatinine Ratio 27.0 H, Glucose 134 H, Calcium 8.6 Radiology Impression Abdomen/Pelvis CT 04/09/22 12:23 IMPRESSION: 1. 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 2. Diverticulosis coli. Electronically Signed: Baldo Echols MD at 15:30 EDT , ADDENDUM: 04/09/22 1545 IMPRESSION: 1. 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 2. Diverticulosis coli. N.B. : The above Results were Read Back by Baldo Ecohls MD to Dr. Nupur MD, and understanding confirmed on 04/09/2022 15:38:25 (ET). Electronically Signed: Baldo Echols MD at 15:30 EDT , KUB X-Ray 04/09/22 16:04 IMPRESSION: Satisfactory endogastric tube placement. Electronically Signed: Baldo Echols MD at 16:44 EDT ,
[2022-04-10 13:39] VITALS: BP 156/67; PULSE 89; RESP 18; TEMP 37.7; O2SAT 96
[2022-04-10 20:05] VITALS: BP 147/58; PULSE 85; RESP 18; TEMP 37.3; O2SAT 94
[2022-04-10] MEDS: Famotidine 200 MG/20 ML MDV 20 MG in 0.9% Normal Saline (Pres. free 8 ML 300 MG IV (21:41)
[2022-04-11 03:00] VITALS: BP 166/67; PULSE 82; RESP 18; TEMP 36.9; O2SAT 95
[2022-04-11] MEDS: 0.9% Normal Saline 1,000 ML 75 ML IV ×2 (03:21→16:35)
[2022-04-11] MEDS: 0.9% Saline Lock 10 ML Syringe IV ×2 (03:24→20:57)
[2022-04-11] MEDS: proCHLORPERazine 10 MG/2 ML Vial 5 MG IV (03:24)
[2022-04-11 04:48] LABS: Absolute Neutrophil Count 8.2 X10^3/uL (2.0-7.7); Basophil# 0.02 X10^3/uL; Basophil% 0.2 % (0-1); Hematocrit 38.3 % (37-47); Hemoglobin 12.3 g/dL (12.0-15.0); Lymphocyte % 6.3 % (19-41); Mean Corp Hgb Conc 32.1 g/dL (32-36); Mean Corpuscular Hgb 31.5 pg (27.0-32.0); Mean Corpuscular Volume 98.2 fL (81-99); Mean Platelet Vol. 8.7 fl (6.2-12.0); Monocyte# 0.68 X10^3/uL; Monocyte% 7.2 % (0-10); NRBC Flagged by Analyzer 0 % (0-5); Neutrophil # 8.19 X10^3/uL (2.7-7.7); Neutrophil % 86.1 % (47-70); POSITIVE DIFFERENTIAL YES; Platelet Count 213 K/mm3 (150-450); RBC Distribution Width CV 13.4 % (11.6-14.6); RBC Distribution Width SD 48.4 fl (35.1-43.9); White Blood Count 9.5 K/mm3 (4.4-11.0)
[2022-04-11 05:07] LABS: Anion Gap 8 (5-15); BUN 24 mg/dL (7-18); BUN/Creat Ratio 25.2 RATIO (10-20); Calcium,Total 8.9 mg/dL (8.5-10.1); Chloride 116 mmol/L (98-107); Creatinine, Serum 0.95 mg/dL (0.55-1.02); EST Glomerular Filtration Rate 59 mL/min (>60); Est Glom Filt Rate - Afr Amer 72 mL/min (>60); Estimated Creatinine Clearance 33.86 ml/min; Glucose 115 mg/dL (74-106); Potassium 4.5 mmol/L (3.5-5.1); Sodium Level 145 mmol/L (136-145)
[2022-04-11 05:29] LABS: Differential Indicated SCAN CRITERIA MET
[2022-04-11 09:19] VITALS: BP 149/60; PULSE 89; RESP 18; TEMP 37.1; O2SAT 97
--- NOTE | 2022-04-11 11:18 | CASEMGMT ---
Addendum entered by Cat Bean 04/11/22 16:31: Faxed [facility] outpt therapy order for pt at this time. Addendum entered by Cat Bean 04/11/22 11:34: TC to therapy, spoke with Sharon, appt scheduled for 04/18/2022 at 3:30pm and request pt to arrive at 3:15 to fill out paperwork. Pt is aware of this and aware it will be on her dc instructions. Original Note: BRADEN CHEUNG Assessment: Face to Face with pt for initial transition planning/care coordination assessment. BRADEN CHEUNG introduced self and role at [facility], pt voices understanding and consents to assessment. Pt is A/O x4 and answers all questions appropriately at this time. Care providers, pharmacy, and demographics verified/updated. Admitting Dx: abd pain PCP: Lori Specialists:Lolita nephamy; Carey, rheum Preferred Pharmacy: [facility] Insurance: MMO [facility] Prescription Benefit: yes LW/HPOA: Pt states she has a LW/DPOA and her DPOA is her . She is aware it is not on file at [facility] and she may bring in to be scanned into her chart. LNOK: Russell Calvert, ; Judith Valle, dtr Living Arrangements: Pt lives with in a single story house with 1 step to enter in the front without a rail but states it is going to be installed and 3 steps in back with a rail. Pt reports she is I in ADL's and denies concerns at home. Transportation: Pt drives self and denies concerns with transportation. DME/HHC/SNF: Pt has a FWW that she uses intermittently when she has gout for a day or so. Pt also has grab bars in the bathroom. Pt denies hx of HHC or SNF stays. Pt states no concerns with going home at time of dc. She states her strength is good but states she thinks she could use some outpt therapy to help with strengthening of her knees as she is finding it difficult to get up and down. Pt states she would like to go to [place] at for this. Pt is agreeable for BRADEN CHEUNG to set up appt. Pt states no further concerns/needs. CM to follow. Advised pt to ask CM if any further question/concerns/needs arise, voices understanding. Pt Goal: Home with outpt therapy Plan: Home with outpt therapy
--- NOTE | 2022-04-11 11:22 | PCM.PN.HOSP ---
Documented by User: Lolis Zhu NP-C 04/11/22 11:26 Subjective Subjective Patient seen and examined. Patient looking much better than yesterday. Patient states that she is feeling better and not having any nausea and has not needed antinausea medications overnight. Patient states that she has not had a bowel movement or and is not passing flatus yet. Continues to have green clear fluid out of her NG tube. Objective Data Objective Data Vital Signs: Vital Signs Temp Pulse Resp BP Pulse Ox O2 Del Method 98.7 F 89 18 149/60 H 97 Room Air 04/11/22 09:19 04/11/22 09:19 04/11/22 09:19 04/11/22 09:19 04/11/22 09:19 04/11/22 09:24 Oxygen Delivery Method Room Air Weight: 140 lb 6 oz Body Mass Index (BMI) 26.5 Intake & Output: Intake and Output for Last 24 Hours 04/09/22 04/10/22 04/11/22 23:59 23:59 23:59 Intake Total 813.33 / 813.33 1850 / 1850 913.75 / 913.75 Output Total 150 / 150 150 / 150 100 / 100 Balance 663.33 / 663.33 1700 / 1700 813.75 / 813.75 Lab / Micro Data Result Diagrams: 04/11/22 04:31 04/11/22 04:31 Labs: Laboratory Results - last 24 hr 04/11/22 04:31: WBC 9.5, RBC 3.90 L, Hgb 12.3, Hct 38.3, MCV 98.2, MCH 31.5, MCHC 32.1, RDW Std Deviation 48.4 H, RDW Coeff of Yariel 13.4, Plt Count 213, MPV 8.7, Immature Gran % (Auto) 0.200, Neut % (Auto) 86.1 H, Lymph % (Auto) 6.3 L, [place] % (Auto) 7.2, Eos % (Auto) 0.0, Baso % (Auto) 0.2, Absolute Neuts (auto) 8.2 H, Absolute Lymphs (auto) 0.60 L, Nucleated RBC % 0 04/11/22 04:31: Sodium 145, Potassium 4.5, Chloride 116 H, Carbon Dioxide 21.0, Anion Gap 8, BUN 24 H, Creatinine 0.95, Estim Creat Clear Calc 33.86, Est GFR (MDRD) Af Amer 72, Est GFR (MDRD) Non-Af 59 L, BUN/Creatinine Ratio 25.2 H, Glucose 115 H, Calcium 8.9 Physical Exam Const alert, oriented x3 and no apparent distress HEENT normocephalic, head/scalp atraumatic and moist oral mucous membranes Eyes conjunctivae normal and no scleral icterus Neck no lymphadenopathy and supple General: trachea midline Resp normal respiratory effort, normal air movement and clear to auscultation bilaterally Cardio regular rate, regular rhythm, S1 normal heart sound, S2 normal heart sound and peripheral pulses 2+ throughout GI non-tender GI Narrative: NG intact with green fluid in NG tube. Connected to LIWS. Confirmation xray in process. Inspection: abdominal distention and GI tube present Auscultation: hypoactive bowel sounds Extremity normal capillary refill and no clubbing, cyanosis or edema Skin Lesions: no lesions Rashes: no rashes Neuro oriented x3, moves all extremities, no focal motor deficits and no sensory deficits noted Psych thought process normal, cooperative and affect normal Assessment & Plan Assessment/Plan (1) Small bowel obstruction: PLAN: Plan 1. Small bowel obstruction -Surgery following, case discussed with Dr. Turk. Patient has seen Dr. David and Dr. Rmaírez in the past -N.p.o. -Maintain NG to low intermittent wall suction -CBC and BMP in a.m. -Normal saline 75 mL/h -IV Pepcid ordered -IV Zofran ordered as needed 2. Hypertension -Vital signs per protocol, currently stable -Hold losartan while n.p.o. -As needed antihypertensives IV 3. Congestive heart failure -Patient follows with a specialist in [place] it is unknown whether she has preserved EF or not -Hold p.o. torsemide and spironolactone while n.p.o. 4. CKD stage IIIb -Creatinine 0.95, improved -BMP daily 5. Asthma -Currently stable, patient on room air -Continue scheduled budesonide and as needed albuterol -Oxygen as needed per protocol DVT prophylaxis-SCDs This patient was seen by MARIETTA AburtoC under the supervision of Dr. De La Rosa. 12 minutes spent in clinical coordination of patient's plan of care. Documented by User: Dr. Julius Fabian, 04/11/22 18:24 Objective Data Lab / Micro Data Result Diagrams: 04/11/22 04:31 04/11/22 04:31 Assessment & Plan Assessment/Plan (1) Small bowel obstruction: Charges/Coding Addendum Addendum: Patient was seen and examined today independently of Su Zhu, I talked with general surgery about her care. Patient still has her NG tube and at this time. On examination she appeared her stated age, she does not appear to be in any distress. Vital signs as documented. Skin warm and dry and without overt rashes. Neck without JVD, thyroid appears normal, trachea is midline, neck is supple. Lungs clear, normal air movement was noted. Heart exam notable for regular rhythm, normal sounds and absence of murmurs, rubs or gallops. Abdomen unremarkable and without evidence of organomegaly, masses, or abdominal aortic enlargement, bowel sounds not present at the time of my examination, no abdominal tenderness was noted. Extremities nonedematous, no cyanosis was noted, no clubbing was noted. Neuro: Cranial nerves II through XII are grossly intact, no focal motor deficits were noted, sensation to light touch and pinprick is intact, motor exam 5/5 throughout. Psych: Patient is alert and oriented x3, she does not appear anxious or depressed, she does not appear agitated. #1 small bowel obstruction-continue treatment with NG tube, general surgery participating in her care #2 essential hypertension-patient's blood pressure medications have been held at this time due to her n.p.o. status, her blood pressures remained stable for now, we will continue to monitor blood pressure #3 cerebrovascular disease- patient is on Plavix #4 chronic obstructive pulmonary disease-this appears stable at this time, patient does not receiving any aerosol treatments in the hospital at this time. #5 chronic congestive heart failure-type unknown, patient does not appear to be in acute congestive heart failure at this time, patient's medications are being held due to her n.p.o. status. #6 history of Takotsubo's cardiomyopathy-patient told nursing today that she had two Fijian heart attacks due to stress, it is likely she has a history of Takotsubo's cardiomyopathy. We do not have a recent echocardiogram, at this point I do not feel that she needs one. I have reviewed Su Hermanzo's progress note including her medical assessment and plan of care and with the above additions endorse it. Total clinical time spent by myself addressing patient's medical issues, reviewing the data, and collaborating with the patient's care team: 25 minutes Visit Charges Inpatient E&M: 32591 Subs Hosp L3
--- NOTE | 2022-04-11 12:04 | PN.SURG_ITS ---
Subjective Subjective Patient is no longer complaining of nausea. She has had some slight flatus but no bowel movement. Objective Data Objective Data Abdomen is soft no rebound guarding or peritoneal signs are identified it is slightly distended Vital Signs: Vital Signs Temp Pulse Resp BP Pulse Ox O2 Del Method 98.7 F 89 18 149/60 H 97 Room Air 04/11/22 09:19 04/11/22 09:19 04/11/22 09:19 04/11/22 09:19 04/11/22 09:19 04/11/22 09:24 Oxygen Delivery Method Room Air Weight: 140 lb 6 oz Body Mass Index (BMI) 26.5 Intake & Output: Intake and Output for Last 24 Hours 04/09/22 04/10/22 04/11/22 23:59 23:59 23:59 Intake Total 813.33 / 813.33 1850 / 1850 913.75 / 913.75 Output Total 150 / 150 150 / 150 100 / 100 Balance 663.33 / 663.33 1700 / 1700 813.75 / 813.75 Lab / Micro Data Result Diagrams: 04/11/22 04:31 04/11/22 04:31 Labs: Laboratory Results - last 24 hr 04/11/22 04:31: WBC 9.5, RBC 3.90 L, Hgb 12.3, Hct 38.3, MCV 98.2, MCH 31.5, MCHC 32.1, RDW Std Deviation 48.4 H, RDW Coeff of Yariel 13.4, Plt Count 213, MPV 8.7, Immature Gran % (Auto) 0.200, Neut % (Auto) 86.1 H, Lymph % (Auto) 6.3 L, [place] % (Auto) 7.2, Eos % (Auto) 0.0, Baso % (Auto) 0.2, Absolute Neuts (auto) 8.2 H, Absolute Lymphs (auto) 0.60 L, Nucleated RBC % 0 04/11/22 04:31: Sodium 145, Potassium 4.5, Chloride 116 H, Carbon Dioxide 21.0, Anion Gap 8, BUN 24 H, Creatinine 0.95, Estim Creat Clear Calc 33.86, Est GFR (MDRD) Af Amer 72, Est GFR (MDRD) Non-Af 59 L, BUN/Creatinine Ratio 25.2 H, Glucose 115 H, Calcium 8.9 Assessment & Plan Assessment/Plan (1) Partial obstruction of small intestine: PLAN: Making slow progress. I think it be okay for her to have some popsicles just to make the back of her throat feel okay. Once has a bowel movement would probably remove NG tube
[2022-04-11 14:23] VITALS: BP 136/72; PULSE 90; RESP 18; TEMP 36.9; O2SAT 99
[2022-04-11 20:40] VITALS: BP 159/66; PULSE 93; RESP 18; TEMP 37.6; O2SAT 94
[2022-04-11] MEDS: Famotidine 200 MG/20 ML MDV 20 MG in 0.9% Normal Saline (Pres. free 8 ML 300 MG IV (20:57)
[2022-04-11] MEDS: Ondansetron 4 MG/2 ML Vial IV (20:57)
[2022-04-11] MEDS: Acetaminophen 650 MG/20 ML UDC NG (23:20)
[2022-04-12 03:00] VITALS: BP 132/91; PULSE 93; RESP 18; TEMP 37.6; O2SAT 93
[2022-04-12] MEDS: 0.9% Normal Saline 1,000 ML 75 ML IV ×2 (04:12→21:15)
[2022-04-12 06:47] LABS: Absolute Neutrophil Count 7.2 X10^3/uL (2.0-7.7); Basophil# 0.02 X10^3/uL; Basophil% 0.2 % (0-1); Eosinophil# 0.01 X10^3/uL; Eosinophils% 0.1 % (0-5); Hematocrit 39.3 % (37-47); Hemoglobin 12.4 g/dL (12.0-15.0); Lymphocyte % 5.8 % (19-41); Mean Corp Hgb Conc 31.6 g/dL (32-36); Mean Corpuscular Hgb 31.6 pg (27.0-32.0); Mean Platelet Vol. 8.9 fl (6.2-12.0); Monocyte# 0.92 X10^3/uL; Monocyte% 10.7 % (0-10); NRBC Flagged by Analyzer 0 % (0-5); Neutrophil # 7.17 X10^3/uL (2.7-7.7); Neutrophil % 83.1 % (47-70); POSITIVE DIFFERENTIAL YES; Platelet Count 218 K/mm3 (150-450); RBC Distribution Width CV 13.3 % (11.6-14.6); RBC Distribution Width SD 49.6 fl (35.1-43.9); Red Blood Count 3.93 M/mm3 (4.2-5.4); White Blood Count 8.6 K/mm3 (4.4-11.0)
[2022-04-12 06:56] LABS: Differential Indicated SCAN CRITERIA MET
[2022-04-12 07:01] LABS: Macrocytosis 1+
[2022-04-12 07:34] LABS: Anion Gap 9 (5-15); BUN 28 mg/dL (7-18); BUN/Creat Ratio 27.2 RATIO (10-20); Calcium,Total 9.2 mg/dL (8.5-10.1); Chloride 117 mmol/L (98-107); Creatinine, Serum 1.03 mg/dL (0.55-1.02); EST Glomerular Filtration Rate 54 mL/min (>60); Est Glom Filt Rate - Afr Amer 66 mL/min (>60); Estimated Creatinine Clearance 31.23 ml/min; Glucose 111 mg/dL (74-106); Sodium Level 147 mmol/L (136-145)
[2022-04-12 09:54] VITALS: BP 168/77; PULSE 88; RESP 16; TEMP 37.2; O2SAT 96
--- NOTE | 2022-04-12 10:09 | PN.HOSP_ITS ---
Documented by User: Lolis Zhu NP-C 04/12/22 10:12 Subjective Subjective In and examined. Patient sitting in bed no distress noted. NG clamped at the moment so patient can get up and ambulate. Patient states that she has not had a bowel movement however she is passing gas frequently. Objective Data Objective Data Vital Signs: Vital Signs Temp Pulse Resp BP Pulse Ox O2 Del Method 99.0 F 88 16 168/77 H 96 Room Air 04/12/22 09:54 04/12/22 09:54 04/12/22 09:54 04/12/22 09:54 04/12/22 09:54 04/12/22 09:54 Oxygen Delivery Method Room Air Weight: 140 lb 6 oz Body Mass Index (BMI) 26.5 Intake & Output: Intake and Output for Last 24 Hours 04/10/22 04/11/22 04/12/22 23:59 23:59 23:59 Intake Total 1850 / 1850 2076.25 / 2076.25 1021.25 / 1021.25 Output Total 150 / 150 750 / 750 150 / 150 Balance 1700 / 1700 1326.25 / 1326.25 871.25 / 871.25 Lab / Micro Data Result Diagrams: 04/12/22 05:09 04/12/22 05:09 Labs: Laboratory Results - last 24 hr 04/12/22 05:09: WBC 8.6, RBC 3.93 L, Hgb 12.4, Hct 39.3, MCV 100.0 H, MCH 31.6, MCHC 31.6 L, RDW Std Deviation 49.6 H, RDW Coeff of Yariel 13.3, Plt Count 218, MPV 8.9, Immature Gran % (Auto) 0.100, Neut % (Auto) 83.1 H, Lymph % (Auto) 5.8 L, [place] % (Auto) 10.7 H, Eos % (Auto) 0.1, Baso % (Auto) 0.2, Absolute Neuts (auto) 7.2, Absolute Lymphs (auto) 0.50 L, Nucleated RBC % 0, Macrocytosis 1+ 04/12/22 05:09: Sodium 147 H, Potassium 4.0, Chloride 117 H, Carbon Dioxide 21.0, Anion Gap 9, BUN 28 H, Creatinine 1.03 H, Estim Creat Clear Calc 31.23, Est GFR (MDRD) Af Amer 66, Est GFR (MDRD) Non-Af 54 L, BUN/Creatinine Ratio 27.2 H, Glucose 111 H, Calcium 9.2 Physical Exam Const alert, oriented x3 and no apparent distress HEENT normocephalic, head/scalp atraumatic and moist oral mucous membranes Eyes conjunctivae normal and no scleral icterus Neck no lymphadenopathy and supple General: trachea midline Resp normal respiratory effort, normal air movement and clear to auscultation bilaterally Cardio regular rate, regular rhythm, S1 normal heart sound, S2 normal heart sound and peripheral pulses 2+ throughout GI non-tender GI Narrative: NG intact with green fluid in NG tube. Connected to LIWS. Confirmation xray in process. Inspection: abdominal distention and GI tube present Auscultation: hypoactive bowel sounds Extremity normal capillary refill and no clubbing, cyanosis or edema Skin Lesions: no lesions Rashes: no rashes Neuro oriented x3, moves all extremities, no focal motor deficits and no sensory deficits noted Psych thought process normal, cooperative and affect normal Assessment & Plan Assessment/Plan (1) Small bowel obstruction: PLAN: Plan 1. Small bowel obstruction -Dr. Turk following -N.p.o. -Maintain NG to low intermittent wall suction -CBC and BMP in a.m. -Normal saline 75 mL/h -IV Pepcid ordered -IV Zofran ordered as needed 2. Hypertension -Vital signs per protocol, currently stable -Hold losartan while n.p.o. -As needed antihypertensives IV 3. Congestive heart failure -Patient follows with a specialist in [place] it is unknown whether she has preserved EF or not -Hold p.o. torsemide and spironolactone while n.p.o. 4. CKD stage IIIb -Creatinine consistent with baseline -BMP daily 5. Asthma -Currently stable, patient on room air -Continue scheduled budesonide and as needed albuterol -Oxygen as needed per protocol DVT prophylaxis-SCDs This patient was seen by JONAS Aburto under the supervision of Dr. Fabian. 12 minutes spent in clinical coordination of patient's plan of care. Documented by User: Dr. Julius Fabian DO 04/12/22 18:26 Objective Data Lab / Micro Data Result Diagrams: 04/12/22 05:09 04/12/22 05:09 Assessment & Plan Assessment/Plan (1) Small bowel obstruction: Charges/Coding Addendum Addendum: Patient was seen and examined today independently of Su Zhu, I talked briefly with general surgery about her care, patient states she is passing fl atus, general surgery requested that I place the patient on a laxative to see if we could encourage her to stool. I have written for the lactulose for the patient. On examination she appeared in good health and spirits, she does not appear to be in any distress. Vital signs as documented. Skin warm and dry and without overt rashes. Neck without JVD, thyroid appears normal, trachea is midline, neck is supple. Lungs clear, normal air movement was noted. Heart exam notable for regular rhythm, normal sounds and absence of murmurs, rubs or gallops. Abdomen unremarkable and without evidence of organomegaly, masses, or abdominal aortic enlargement, bowel sounds are present in all 4 quadrants but diminished, no abdominal tenderness was noted. Extremities nonedematous, no cyanosis was noted, no clubbing was noted. Neuro: Cranial nerves II through XII are grossly intact, no focal motor deficits were noted, sensation to light touch and pinprick is intact, motor exam 5/5 throughout. Psych: Patient is alert and oriented x3, she does not appear anxious or depressed, she does not appear agitated. #1 small bowel obstruction-continue treatment with NG tube, general surgery participating in her care, lactulose will be placed on the patient's NG tube #2 essential hypertension-patient's blood pressure medications have been held at this time due to her n.p.o. status, her blood pressures remained stable for now, we will continue to monitor blood pressure #3 cerebrovascular disease- patient is on Plavix #4 chronic obstructive pulmonary disease-this appears stable at this time, patient does not receiving any aerosol treatments in the hospital at this time. #5 chronic congestive heart failure-type unknown, patient does not appear to be in acute congestive heart failure at this time, patient's medications are being held due to her n.p.o. status. #6 history of Takotsubo's cardiomyopathy-patient told nursing today that she had two [place] heart attacks due to stress, it is likely she has a history of Takotsubo's cardiomyopathy.? We do not have a recent echocardiogram, at this po int I do not feel that she needs one. I have reviewed Su Audra's progress note including her medical assessment and plan of care and with the above additions endorse it. Total clinical time spent by myself addressing patient's medical issues, reviewing the data, and collaborating with patient's care team: 20 minutes Visit Charges Inpatient E&M: 36531 Subs Hosp L2
--- NOTE | 2022-04-12 10:16 | RAD_ITS ---
STUDY: GASTROGRAFIN SMALL BOWEL FOLLOW-THROUGH EXAMINATION. REASON FOR EXAM: Female, 81 years old. Small bowel obstruction. FLUOROSCOPY TIME (if supplied): ( 1 second ) minutes/seconds. 13 images were obtained. TECHNIQUE: 120 cc of GASTROGRAFIN mixed with 20 cc of water was instilled through the nasogastric tube. COMPARISON: None. FINDINGS: On the regional operations manager film, there is evidence of small bowel dilatation. There is delayed transit through the small bowel. Contrast is seen within the colon at 20 hours following the placement of GASTROGRAFIN. Findings aren''t typical of a partial small bowel obstruction. RAD/Small Bowel Series Only IMPRESSION: Findings suggestive of a partial small bowel obstruction. Electronically Signed: Clif Peraza MD at 10:30 EDT ,
--- NOTE | 2022-04-12 10:18 | PN.SURG_ITS ---
Subjective Subjective No bowel movements as of yet. Objective Data Objective Data Abdomen still slightly distended not as soft as it was yesterday. Vital Signs: Vital Signs Temp Pulse Resp BP Pulse Ox O2 Del Method 99.0 F 88 16 168/77 H 96 Room Air 04/12/22 09:54 04/12/22 09:54 04/12/22 09:54 04/12/22 09:54 04/12/22 09:54 04/12/22 09:54 Oxygen Delivery Method Room Air Weight: 140 lb 6 oz Body Mass Index (BMI) 26.5 Intake & Output: Intake and Output for Last 24 Hours 04/10/22 04/11/22 04/12/22 23:59 23:59 23:59 Intake Total 1850 / 1850 2076.25 / 2076.25 1021.25 / 1021.25 Output Total 150 / 150 750 / 750 150 / 150 Balance 1700 / 1700 1326.25 / 1326.25 871.25 / 871.25 Lab / Micro Data Result Diagrams: 04/12/22 05:09 04/12/22 05:09 Labs: Laboratory Results - last 24 hr 04/12/22 05:09: WBC 8.6, RBC 3.93 L, Hgb 12.4, Hct 39.3, MCV 100.0 H, MCH 31.6, MCHC 31.6 L, RDW Std Deviation 49.6 H, RDW Coeff of Yariel 13.3, Plt Count 218, MPV 8.9, Immature Gran % (Auto) 0.100, Neut % (Auto) 83.1 H, Lymph % (Auto) 5.8 L, [place] % (Auto) 10.7 H, Eos % (Auto) 0.1, Baso % (Auto) 0.2, Absolute Neuts (auto) 7.2, Absolute Lymphs (auto) 0.50 L, Nucleated RBC % 0, Macrocytosis 1+ 04/12/22 05:09: Sodium 147 H, Potassium 4.0, Chloride 117 H, Carbon Dioxide 21.0, Anion Gap 9, BUN 28 H, Creatinine 1.03 H, Estim Creat Clear Calc 31.23, Est GFR (MDRD) Af Amer 66, Est GFR (MDRD) Non-Af 54 L, BUN/Creatinine Ratio 27.2 H, Glucose 111 H, Calcium 9.2 Assessment & Plan Assessment/Plan (1) Partial obstruction of small intestine: PLAN: Can obtain a Gastrografin small bowel follow-through to see if it reaches the colon. White count remained stable vital signs are stable not striking me as if I need to do an urgent operation on her as of yet.
[2022-04-12 15:07] VITALS: BP 159/87; PULSE 95; RESP 16; TEMP 37.2; O2SAT 96
[2022-04-12] MEDS: Ondansetron 4 MG/2 ML Vial IV (15:23)
[2022-04-12] MEDS: 0.9% Saline Lock 10 ML Syringe IV ×3 (15:23→21:15)
[2022-04-12] MEDS: Lactulose 20 GM/30 ML UDC 30 GM NG (17:27)
[2022-04-12] MEDS: proCHLORPERazine 10 MG/2 ML Vial 5 MG IV (20:45)
[2022-04-12 21:11] VITALS: BP 153/71; PULSE 100; RESP 18; TEMP 37.5; O2SAT 96
[2022-04-12] MEDS: Famotidine 200 MG/20 ML MDV 20 MG in 0.9% Normal Saline (Pres. free 8 ML 300 MG IV (21:15)
[2022-04-13 02:21] VITALS: BP 146/70; PULSE 102; RESP 18; TEMP 38.1; O2SAT 93
[2022-04-13] MEDS: Acetaminophen 650 MG/20 ML UDC NG (02:27)
--- NOTE | 2022-04-13 02:28 | NURSING ---
pt states i am spiking fevers because I am not taking my gout medication, uloric. this happens when i do not take it.
[2022-04-13 05:32] VITALS: TEMP 37
[2022-04-13 06:05] LABS: Absolute Lymphocyte Count 0.44 X10^3/uL (0.83-4.51); Absolute Neutrophil Count 10.1 X10^3/uL (2.0-7.7); Basophil# 0.02 X10^3/uL; Basophil% 0.2 % (0-1); Hematocrit 41.8 % (37-47); Hemoglobin 13.3 g/dL (12.0-15.0); Lymphocyte # 0.44 X10^3/ul (0.83-4.51); Lymphocyte % 3.7 % (19-41); Mean Corp Hgb Conc 31.8 g/dL (32-36); Mean Corpuscular Hgb 31.8 pg (27.0-32.0); Mean Platelet Vol. 8.7 fl (6.2-12.0); Monocyte# 1.15 X10^3/uL; Monocyte% 9.8 % (0-10); NRBC Flagged by Analyzer 0 % (0-5); Neutrophil # 10.14 X10^3/uL (2.7-7.7); Neutrophil % 86.1 % (47-70); POSITIVE DIFFERENTIAL YES; Platelet Count 229 K/mm3 (150-450); RBC Distribution Width CV 13.4 % (11.6-14.6); RBC Distribution Width SD 50.3 fl (35.1-43.9); Red Blood Count 4.18 M/mm3 (4.2-5.4); White Blood Count 11.8 K/mm3 (4.4-11.0)
[2022-04-13 06:22] LABS: Differential Indicated SCAN CRITERIA MET
[2022-04-13 06:43] LABS: Anion Gap 10 (5-15); BUN 28 mg/dL (7-18); BUN/Creat Ratio 24.1 RATIO (10-20); Calcium,Total 8.7 mg/dL (8.5-10.1); Chloride 124 mmol/L (98-107); Creatinine, Serum 1.16 mg/dL (0.55-1.02); EST Glomerular Filtration Rate 47 mL/min (>60); Est Glom Filt Rate - Afr Amer 57 mL/min (>60); Estimated Creatinine Clearance 27.73 ml/min; Glucose 113 mg/dL (74-106); Potassium 3.4 mmol/L (3.5-5.1); Sodium Level 154 mmol/L (136-145)
[2022-04-13 09:51] VITALS: BP 148/72; PULSE 90; RESP 16; TEMP 37.2; O2SAT 95
[2022-04-13] MEDS: 0.9% Normal Saline 1,000 ML 75 ML IV (10:03)
[2022-04-13] MEDS: Lactulose 20 GM/30 ML UDC NG (10:07)
--- NOTE | 2022-04-13 13:50 | PCM.PN.HOSP ---
Documented by User: Lolis Zhu NP-C 04/13/22 13:51 Subjective Subjective Patient seen and examined. Patient states that she is still passing gas and feels like she could have a bowel movement however she has not yet. Objective Data Objective Data Vital Signs: Vital Signs Temp Pulse Resp BP Pulse Ox O2 Del Method 98.9 F 90 16 148/72 H 95 Room Air 04/13/22 09:51 04/13/22 09:51 04/13/22 09:51 04/13/22 09:51 04/13/22 09:51 04/13/22 09:51 Oxygen Delivery Method Room Air Weight: 140 lb 6 oz Body Mass Index (BMI) 26.5 Intake & Output: Intake and Output for Last 24 Hours 04/11/22 04/12/22 04/13/22 23:59 23:59 23:59 Intake Total 2076.25 / 2076.25 2061.25 / 2061.25 1070 / 1070 Output Total 750 / 750 1325 / 1325 200 / 200 Balance 1326.25 / 1326.25 736.25 / 736.25 870 / 870 Lab / Micro Data Result Diagrams: 04/13/22 05:40 04/13/22 05:40 Labs: Laboratory Results - last 24 hr 04/13/22 05:40: WBC 11.8 H, RBC 4.18 L, Hgb 13.3, Hct 41.8, MCV 100.0 H, MCH 31.8, MCHC 31.8 L, RDW Std Deviation 50.3 H, RDW Coeff of Yariel 13.4, Plt Count 229, MPV 8.7, Immature Gran % (Auto) 0.200, Neut % (Auto) 86.1 H, Lymph % (Auto) 3.7 L, [place] % (Auto) 9.8, Eos % (Auto) 0.0, Baso % (Auto) 0.2, Absolute Neuts (auto) 10.1 H, Absolute Lymphs (auto) 0.44 L, Nucleated RBC % 0 04/13/22 05:40: Sodium 154 H, Potassium 3.4 L, Chloride 124 H, Carbon Dioxide 20.0 L, Anion Gap 10, BUN 28 H, Creatinine 1.16 H, Estim Creat Clear Calc 27.73, Est GFR (MDRD) Af Amer 57 L, Est GFR (MDRD) Non-Af 47 L, BUN/Creatinine Ratio 24.1 H, Glucose 113 H, Calcium 8.7 Radiography Diagnostic Testing: Radiology Impression Small Bowel X-Ray 04/12/22 10:16 IMPRESSION: Findings suggestive of a partial small bowel obstruction. Electronically Signed: Clif Peraza MD at 10:30 EDT , Physical Exam Const alert, oriented x3 and no apparent distress HEENT normocephalic, head/scalp atraumatic and moist oral mucous membranes Eyes conjunctivae normal and no scleral icterus Neck no lymphadenopathy and supple General: trachea midline Resp normal respiratory effort, normal air movement and clear to auscultation bilaterally Cardio regular rate, regular rhythm, S1 normal heart sound, S2 normal heart sound and peripheral pulses 2+ throughout GI non-tender GI Narrative: NG intact with green fluid in NG tube. Connected to LIWS. Confirmation xray in process. Inspection: abdominal distention and GI tube present Auscultation: hypoactive bowel sounds Extremity normal capillary refill and no clubbing, cyanosis or edema Skin Lesions: no lesions Rashes: no rashes Neuro oriented x3, moves all extremities, no focal motor deficits and no sensory deficits noted Psych thought process normal, cooperative and affect normal Assessment & Plan Assessment/Plan (1) Small bowel obstruction: PLAN: Plan 1. Small bowel obstruction -Dr. Turk following, updated that patient did have a normal bowel movement -N.p.o., nursing clarified with Dr. Turk if patient can have her diet advanced -Maintain NG to low intermittent wall suction -CBC and BMP in a.m. -Normal saline 75 mL/h -IV Pepcid ordered -IV Zofran ordered as needed 2. Hypokalemia -Potassium chloride 20 mEq p.o. x1 ordered to go down NG tube -BMP ordered daily 3. Hypertension -Vital signs per protocol, currently stable -Hold losartan while n.p.o. -As needed antihypertensives IV 4. Congestive heart failure -Patient follows with a specialist in [place] it is unknown whether she has preserved EF or not -Hold p.o. torsemide and spironolactone while n.p.o. 5. CKD stage IIIb -Creatinine consistent with baseline -BMP daily 6. Asthma -Currently stable, patient on room air -Continue scheduled budesonide and as needed albuterol -Oxygen as needed per protocol DVT prophylaxis-SCDs This patient was seen by Lolis Zhu, PRODUCTION CONTROLLER-C under the supervision of Dr. Fabian. 14 minutes spent in clinical coordination of patient's plan of care. Documented by User: Dr. Julius Fabian, 04/13/22 18:17 Objective Data Lab / Micro Data Result Diagrams: 04/13/22 05:40 04/13/22 05:40 Assessment & Plan Assessment/Plan (1) Small bowel obstruction: Charges/Coding Addendum Addendum: She was seen and examined today independently of Su Zhu, she has had several bowel movements today and her NG now has been removed. On examination she appeared in good health and spirits, she does not appear to be in any distress. Vital signs as documented. Skin warm and dry and without overt rashes. Neck without JVD, thyroid appears normal, trachea is midline, neck is supple. Lungs clear, normal air movement was noted. Heart exam notable for regular rhythm, normal sounds and absence of murmurs, rubs or gallops. Abdomen unremarkable and without evidence of organomegaly, masses, or abdominal aortic enlargement, bowel sounds are present in all 4 quadrants, no abdominal tenderness was noted. Extremities nonedematous, no cyanosis was noted, no clubbing was noted. Neuro: Cranial nerves II through XII are grossly intact, no focal motor deficits were noted, sensation to light touch and pinprick is intact, motor exam 5/5 throughout. Psych: Patient is alert and oriented x3, she does not appear anxious or depressed, she does not appear agitated. Impression:#1 small bowel obstruction-patient's NG tube now has been removed, general surgery will adjust her diet as needed. #2 essential hypertension-patient's blood pressure medications have been held at this time, I have elected to hold off restarting some of her blood pressure medications at this time. #3 cerebrovascular disease- patient is on Plavix #4 chronic obstructive pulmonary disease-this appears stable at this time, patient does not receiving any aerosol treatments in the hospital at this time. #5 chronic congestive heart failure-type unknown, patient does not appear to be in acute congestive heart failure at this time, I will reevaluate starting some of her home medications tomorrow. #6 history of Takotsubo's cardiomyopathy-patient told nursing today that she had two [place] heart attacks due to stress, it is likely she has a history of Takotsubo's cardiomyopathy.? We do not have a recent echocardiogram, at this point I do not feel that she needs one. I have reviewed Su Zhu's progress note including her medical assessment and plan of care and with the above additions endorse it. Total clinical time spent by myself addressing the patient's medical issues, reviewing the data, and collaborating with patient's care team: 22 minutes Visit Charges Inpatient E&M: [id number] Subs Hosp L3
--- NOTE | 2022-04-13 14:12 | PN.SURG_ITS ---
Subjective Subjective Patient had a large bowel movement today. Feels much better. Objective Data Objective Data Abdomen is softer. Vital Signs: Vital Signs Temp Pulse Resp BP Pulse Ox O2 Del Method 98.9 F 90 16 148/72 H 95 Room Air 04/13/22 09:51 04/13/22 09:51 04/13/22 09:51 04/13/22 09:51 04/13/22 09:51 04/13/22 09:51 Oxygen Delivery Method Room Air Weight: 140 lb 6 oz Body Mass Index (BMI) 26.5 Intake & Output: Intake and Output for Last 24 Hours 04/11/22 04/12/22 04/13/22 23:59 23:59 23:59 Intake Total 2076.25 / 2076.25 2061.25 / 2061.25 1070 / 1070 Output Total 750 / 750 1325 / 1325 200 / 200 Balance 1326.25 / 1326.25 736.25 / 736.25 870 / 870 Lab / Micro Data Result Diagrams: 04/13/22 05:40 04/13/22 05:40 Labs: Laboratory Results - last 24 hr 04/13/22 05:40: WBC 11.8 H, RBC 4.18 L, Hgb 13.3, Hct 41.8, MCV 100.0 H, MCH 31.8, MCHC 31.8 L, RDW Std Deviation 50.3 H, RDW Coeff of Yariel 13.4, Plt Count 229, MPV 8.7, Immature Gran % (Auto) 0.200, Neut % (Auto) 86.1 H, Lymph % (Auto) 3.7 L, [place] % (Auto) 9.8, Eos % (Auto) 0.0, Baso % (Auto) 0.2, Absolute Neuts (auto) 10.1 H, Absolute Lymphs (auto) 0.44 L, Nucleated RBC % 0 04/13/22 05:40: Sodium 154 H, Potassium 3.4 L, Chloride 124 H, Carbon Dioxide 20.0 L, Anion Gap 10, BUN 28 H, Creatinine 1.16 H, Estim Creat Clear Calc 27.73, Est GFR (MDRD) Af Amer 57 L, Est GFR (MDRD) Non-Af 47 L, BUN/Creatinine Ratio 24.1 H, Glucose 113 H, Calcium 8.7 Radiography Diagnostic Testing: Radiology Impression Small Bowel X-Ray 04/12/22 10:16 IMPRESSION: Findings suggestive of a partial small bowel obstruction. Electronically Signed: Clif Peraza MD at 10:30 EDT , Assessment & Plan Assessment/Plan (1) Partial obstruction of small intestine: PLAN: We will remove NG tube. Started on clear liquids.
[2022-04-13] MEDS: Potassium Chloride Oral Soln 20 MEQ/15 ML UDC NG (15:17)
[2022-04-13 16:05] VITALS: BP 144/75; PULSE 91; RESP 18; TEMP 37.4; O2SAT 96
[2022-04-13] MEDS: 0.9% Saline Lock 10 ML Syringe IV (19:55)
[2022-04-13] MEDS: Famotidine 200 MG/20 ML MDV 20 MG in 0.9% Normal Saline (Pres. free 8 ML 300 MG IV (19:56)
[2022-04-13 20:09] VITALS: BP 125/60; PULSE 94; RESP 16; TEMP 36.9; O2SAT 96
[2022-04-14 02:20] VITALS: BP 133/57; PULSE 93; RESP 16; TEMP 36.8; O2SAT 95
[2022-04-14 06:34] LABS: Absolute Lymphocyte Count 0.68 X10^3/uL (0.83-4.51); Absolute Neutrophil Count 6.5 X10^3/uL (2.0-7.7); Basophil# 0.01 X10^3/uL; Basophil% 0.1 % (0-1); Eosinophil# 0.12 X10^3/uL; Eosinophils% 1.5 % (0-5); Hematocrit 34.6 % (37-47); Lymphocyte # 0.68 X10^3/ul (0.83-4.51); Lymphocyte % 8.4 % (19-41); Mean Corp Hgb Conc 31.8 g/dL (32-36); Mean Corpuscular Hgb 31.8 pg (27.0-32.0); Monocyte# 0.68 X10^3/uL; Monocyte% 8.4 % (0-10); NRBC Flagged by Analyzer 0 % (0-5); Neutrophil # 6.54 X10^3/uL (2.7-7.7); Neutrophil % 81.4 % (47-70); Platelet Count 174 K/mm3 (150-450); RBC Distribution Width CV 13.7 % (11.6-14.6); RBC Distribution Width SD 50.4 fl (35.1-43.9); Red Blood Count 3.46 M/mm3 (4.2-5.4); White Blood Count 8.1 K/mm3 (4.4-11.0)
[2022-04-14 07:13] LABS: ALB/GLOB Ratio 0.9 RATIO (0.9-2.4); AST(SGOT) 23 U/L (15-37); Alanine Aminotransfer ALT/SGPT 19 U/L (13-56); Albumin, Serum 2.6 g/dL (3.2-5.0); Alkaline Phosphatase 65 U/L (45-117); Anion Gap 7 (5-15); BUN 20 mg/dL (7-18); Calcium,Total 8.5 mg/dL (8.5-10.1); Chloride 117 mmol/L (98-107); Creatinine, Serum 1.25 mg/dL (0.55-1.02); EST Glomerular Filtration Rate 44 mL/min (>60); Est Glom Filt Rate - Afr Amer 53 mL/min (>60); Estimated Creatinine Clearance 25.73 ml/min; Glucose 155 mg/dL (74-106); Potassium 3.4 mmol/L (3.5-5.1); Protein, Total 5.6 g/dL (6.4-8.2); Sodium Level 146 mmol/L (136-145)
[2022-04-14 07:40] VITALS: BP 134/63; PULSE 86; RESP 18; TEMP 36.9; O2SAT 97
[2022-04-14] MEDS: Clopidogrel Bisulfate 75 MG Tablet PO (08:59)
[2022-04-14] MEDS: Febuxostat 40 MG TABLET PO (08:59)
[2022-04-14] MEDS: Losartan Potassium 25 MG Tablet PO (08:59)
--- NOTE | 2022-04-14 11:04 | DCINST_ITS ---
Discharge Instructions Diet Discharge Diet: Light diet - advance as tolerated Activity Discharge Activity: Return to Normal Activity Dressing / Incision Call your doctor if you observe: Shortness of breath, Dizziness and Chest pain Follow Up Care Test Results: Test results from this visit will be discussed in further detail at your follow- up appointment, if applicable. Discharge Plan Admission Admit Date/Time: 04/09/22 15:54 Primary Reason for Your Visit: Small bowel obstruction Attending Provider: Julius Fabian Primary Care Provider: Julius Sandoval Consulting Providers: Blade Turk ; Julius De La Rosa Discharge Orders/Prescriptions Prescriptions: Continued torsemide 20 MG tablet 10 mg PO DAILY Rx Instructions: 1-2 depending on leg edema spironolactone 25 MG tablet 25 mg PO DAILY aspirin 81 MG tablet,chewable 81 mg PO QHS montelukast 10 MG tablet 10 mg PO QHS Label Comments: asthma albuterol sulfate 1 INHALER inhaler 2 puff INHALATION Q4H PRN PRN (Reason: Shortness Of Breath) omeprazole 40 MG capsule,delayed release(DR/EC) 40 mg PO PRN PRN (Reason: stomach) budesonide-formoterol 160-4.5 mcg/actuation HFA aerosol inhaler 2 puff inhalation BID losartan 25 MG tablet 12.5 - 25 mg PO DAILY clopidogrel 75 mg tablet 1 tab PO DAILY febuxostat 40 mg tablet 1 tab PO DAILY nitrofurantoin macrocrystal [Macrodantin] 100 mg capsule 100 mg PO .PRN Qty: 20 3RF Rx Instructions: take one tablet after intercourse and one tablet the next morning Referrals / Follow Up: Julius Sandoval MD [Primary Care Provider] - In 1 Week Disposition Disposition (needs filled in before D/C Order can be placed): Home, Self Care
--- NOTE | 2022-04-14 11:11 | PCM.DC.SUM ---
Providers Date of Admission: 04/09/22 Date of Discharge: 04/14/22 Primary Care Physician: Dr. Julius Sandoval MD Consultations 04/09/22 17:11 Consult: General Surgery Routine Consulting Provider: Blade Turk Reason for Consult: SBO EMERGENT Consult: No MD Notified: Yes Date Notified: 04/09/22 Time Notified: 16:00 Method of Notification: ED Physician Initiated Reason For Visit: ABD PAIN Diagnosis Discharge Diagnosis (1) Small bowel obstruction: Status: Acute Code(s): K56.609 - Unspecified intestinal obstruction, unspecified as to partial versus complete obstruction Medications at Discharge Home Medications albuterol sulfate 90 mcg/actuation aerosol inhaler 2 puff inhalation Q4H PRN PRN Shortness Of Breath 03/20/15 aspirin 81 mg chewable tablet 81 mg PO QHS heart health/stroke 03/20/15 montelukast 10 mg tablet 10 mg PO QHS asthma 03/20/15 spironolactone 25 mg tablet 25 mg PO DAILY water pill 03/20/15 torsemide 20 mg tablet 10 mg PO DAILY water pill 03/20/15 omeprazole 40 mg capsule,delayed release 40 mg PO PRN PRN stomach 06/14/19 losartan 25 mg tablet 12.5 - 25 mg PO DAILY BP 12/02/20 budesonide-formoterol HFA 160 mcg-4.5 mcg/actuation aerosol inhaler 2 puff inhalation BID breathing 02/25/21 nitrofurantoin macrocrystal 100 mg capsule (Macrodantin) 100 mg PO .PRN #20 caps 08/20/21 clopidogrel 75 mg tablet 1 tab PO DAILY 04/09/22 febuxostat 40 mg tablet 1 tab PO DAILY 04/09/22 Hospital Course Operations None Procedures None Summary of Care Provided Hospital Course: Patient is an 81-year-old female admitted 04/09/2022 due to abdominal pain, nausea and vomiting. 1. 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 General surgery consulted during admission. NG removed 04/13. Small bowel obstruction resolved. Tolerating diet, multiple bowel movements. Follow-up with PCP in 1 week. 2. Hypokalemia-replaced per protocol. Resolved. 3. Hypertension-stable, continue home regimen 4. COPD/asthma-no exacerbation. Continue home inhaler regimen. 5. History of CVA-continue aspirin, Plavix. 6. Chronic kidney disease stage IIIa-at baseline. 7. Chronic heart failure, unknown subtype-stable. Patient seen and examined prior to discharge. Physical assessment as noted below. Patient is stable for discharge with follow up recommendations as noted above. This patient was seen by JONAS Garcia under the supervision of Dr. Fabian. Physical Exam Const alert, oriented x3 and no apparent distress Orientation / Consciousness: awake, oriented to person, oriented to place and oriented to time HEENT normocephalic and moist oral mucous membranes Eyes PERRL, EOMs intact bilaterally and conjunctivae normal Neck no lymphadenopathy Resp normal respiratory effort and clear to auscultation bilaterally Cardio regular rate, regular rhythm and no murmurs Peripheral Pulses: pulses 2+ throughout GI normal to inspection, nondistended, normoactive bowel sounds, non-tender and non-distended Extremity normal to inspection Skin no rashes or lesions noted Lesions: no lesions Rashes: no rashes Trauma: no lacerations or abrasions Neuro CN's II-XII intact bilaterally, no focal motor deficits, no sensory deficits noted and deep tendon reflexes 2+ bilaterally Psych mental status grossly normal and affect normal Weight / BMI Weight Weight: 140 lb 6 oz Body Mass Index (BMI) 26.5 ABG / Lab / Microbiology Data Result Diagrams: 04/14/22 06:00 04/14/22 06:00 Laboratory: Laboratory Results - last 24 hr 04/14/22 06:00: WBC 8.1, RBC 3.46 L, Hgb 11.0 L, Hct 34.6 L, MCV 100.0 H, MCH 31.8, MCHC 31.8 L, RDW Std Deviation 50.4 H, RDW Coeff of Yariel 13.7, Plt Count 174, MPV 9.0, Immature Gran % (Auto) 0.200, Neut % (Auto) 81.4 H, Lymph % (Auto) 8.4 L, [place] % (Auto) 8.4, Eos % (Auto) 1.5, Baso % (Auto) 0.1, Absolute Neuts (auto) 6.5, Absolute Lymphs (auto) 0.68 L, Nucleated RBC % 0 04/14/22 06:00: Sodium 146 H, Potassium 3.4 L, Chloride 117 H, Carbon Dioxide 22.0, Anion Gap 7, BUN 20 H, Creatinine 1.25 H, Estim Creat Clear Calc 25.73, Est GFR (MDRD) Af Amer 53 L, Est GFR (MDRD) Non-Af 44 L, BUN/Creatinine Ratio 16.0, Glucose 155 H, Calcium 8.5, Total Bilirubin 1.10 H, AST 23, ALT 19, Alkaline Phosphatase 65, Total Protein 5.6 L, Albumin 2.6 L, Globulin 3.0, Albumin/Globulin Ratio 0.9 D/C Instructions Discharge Diet: Light diet - advance as tolerated Call your doctor if you observe: Shortness of breath, Dizziness and Chest pain Meaningful Use Info Meaningful Use Diagnoses (Choose all that apply): None applicable Discharge Plan Admission Admit Date/Time: 04/09/22 15:54 Primary Reason for Your Visit: Small bowel obstruction Attending Provider: Julius Fabian Primary Care Provider: Julius Sandoval Consulting Providers: Blade Turk ; Julius De La Rosa Discharge Orders/Prescriptions Prescriptions: Continued torsemide 20 MG tablet 10 mg PO DAILY Rx Instructions: 1-2 depending on leg edema spironolactone 25 MG tablet 25 mg PO DAILY aspirin 81 MG tablet,chewable 81 mg PO QHS montelukast 10 MG tablet 10 mg PO QHS Label Comments: asthma albuterol sulfate 1 INHALER inhaler 2 puff INHALATION Q4H PRN PRN (Reason: Shortness Of Breath) omeprazole 40 MG capsule,delayed release(DR/EC) 40 mg PO PRN PRN (Reason: stomach) budesonide-formoterol 160-4.5 mcg/actuation HFA aerosol inhaler 2 puff inhalation BID losartan 25 MG tablet 12.5 - 25 mg PO DAILY clopidogrel 75 mg tablet 1 tab PO DAILY febuxostat 40 mg tablet 1 tab PO DAILY nitrofurantoin macrocrystal [Macrodantin] 100 mg capsule 100 mg PO .PRN Qty: 20 3RF Rx Instructions: take one tablet after intercourse and one tablet the next morning Referrals / Follow Up: Julius Sandoval MD [Primary Care Provider] - 04/21/22 10:00 am Disposition Disposition (needs filled in before D/C Order can be placed): Home, Self Care
[2022-04-14] MEDS: Potassium Chloride Oral Tablet 20 MEQ 40 MEQ PO (11:24)
--- NOTE | 2022-04-14 11:42 | CASEMGMT ---
RN CM in to pt room, pt states she still would like to do the outpt therapy and has no issues with transportation. She is aware this is all set up. Pt ready for dc.
[2022-04-14 14:53] VITALS: BP 121/50; PULSE 90; RESP 18; TEMP 36.9; O2SAT 97
== END 2022-04-14 16:07 | disposition home or self-care (01) | DRG 392 ==
LOC: ED 15:54 → MS3 16:33
PROVIDERS: Nurse Practitioner Family; Admitting Provider Family Medicine; Emergency Provider Emergency Medicine; PCP Family Medicine; Visit Provider Internal Medicine
DX: K52.9 Noninfective gastroenteritis and colitis, unspecified (principal); I13.0 Hypertensive heart and chronic kidney disease with heart failure and stage 1 through stage 4 chronic kidney disease, or unspecified chronic kidney disease; I50.9 Heart failure, unspecified; N18.31 Chronic kidney disease, stage 3a; J44.9 Chronic obstructive pulmonary disease, unspecified; E87.6 Hypokalemia; K57.30 Diverticulosis of large intestine without perforation or abscess without bleeding; I25.10 Atherosclerotic heart disease of native coronary artery without angina pectoris; I25.2 Old myocardial infarction; K21.9 Gastro-esophageal reflux disease without esophagitis; Z79.02 Long term (current) use of antithrombotics/antiplatelets; Z79.82 Long term (current) use of aspirin; Z79.899 Other long term (current) drug therapy; Z86.73 Personal history of transient ischemic attack (TIA), and cerebral infarction without residual deficits; Z86.79 Personal history of other diseases of the circulatory system
CPT/HCPCS: 36415; 74018; 74177; 74250; 80048; 80053; 83690; 85025; 99285; J7030; Q9967; A4216; J2405; J3490

== ENCOUNTER 2022-04-18 12:35 | Emergency (ER) | payer MEDICARE, SELFPAY ==
[2022-04-18 12:35] VITALS: BP 139/60; PULSE 24; RESP 76; TEMP 36.7; O2SAT 99; BMI 22.4
[2022-04-18 12:44] VITALS: BP 139/60; PULSE 76; RESP 14; O2SAT 98
--- NOTE | 2022-04-18 13:01 | EKG12_ITS ---
Test Reason : cp Blood Pressure : / mmHG Vent. Rate : 076 BPM Atrial Rate : 076 BPM P-R Int : 164 ms QRS Dur : 076 ms QT Int : 418 ms P-R-T Axes : 076 -53 051 degrees QTc Int : 470 ms Sinus rhythm with Premature atrial complexes in a pattern of bigeminy Left anterior fascicular block Abnormal ECG Confirmed by MARYLOU HSIEH, BEULAH ([id number]), newspaper editor ROB FUENTES ([id number]) on 04/19/2022 1:10:44 PM Referred By: Confirmed By:BEULAH HICKMAN MD
--- NOTE | 2022-04-18 13:01 | CT_ITS ---
STUDY: CTA CHEST REASON FOR EXAM: Female, 81 years old. Chest pain. Worse with inspiration. Pulmonary embolism RADIATION DOSAGE (If Supplied By Facility): CTDIvol = ( 3.99 ) mGy, DLP = ( 161.40 ) mGycm TECHNIQUE: The examination was performed with the intravenous administration of IV 100mL Isovue-370. Post-processing of the angiographic images was performed, with multiplanar reformation and 3D reconstruction. Individualized dose optimization techniques were used for this CT. COMPARISON: CT of the abdomen and pelvis dated 06/11/2021 FINDINGS: There are left lower lobe patchy opacities. Normal enhancement of the main pulmonary artery and right and left pulmonary arteries. Normal enhancement of the bilateral peripheral pulmonary arteries. There is no demonstrated pulmonary embolism. There is atherosclerotic calcification of the aortic arch and descending thoracic aorta. There is no demonstrated aortic dissection. There are calcifications of the coronary arteries. Normal mediastinum. Normal hilar regions. Normal visualized trachea and bronchi. Normal chest wall structures. There are degenerative changes of thoracic spine. Normal visualized upper abdomen. CT/CTA Chest W/WO Contrast IMPRESSION: No demonstrated pulmonary embolism or arterial dissection. Left lower lobe patchy opacities concerning for pneumonia. Atherosclerosis. Electronically Signed: Nanda Ward MD at 14:13 EDT ,
--- NOTE | 2022-04-18 13:02 | ED.VIS.CHEST ---
HPI History of Present Illness Chief Complaint: Chest Pain Informant: patient Narrative Narrative: 81-year-old female states that last evening around 2100 hrs. she developed a sharp stabbing pain in the center of her chest that radiates into her back. She states it has been constant since its onset. Nothing seems to make it better or worse. She took a Tylenol with no relief. She notes that she has peripheral vascular disease and has had Takotsubo's cardiomyopathy twice. She also notes chronic kidney disease and CHF. She was recently admitted to the hospital for 6 days with a small bowel obstruction. She notes the swelling in her legs continues despite taking double her normal diuretic. She denies any pain in the calves. [facility] Medical History Bilateral lower extremity edema Broken heart syndrome Congestive heart failure DVT (deep venous thrombosis) Endometrial cancer GI bleed History of breast cancer History of stroke Hypertension Kidney disease Kidney stones Laceration without foreign body, right lower leg, sequela Myocardial infarction Osteoporosis PVD (peripheral vascular disease) Seizures Stroke/cerebrovascular accident Traumatic hematoma of right lower leg Venous ulcer of right lower extremity with varicose veins Home Medications albuterol sulfate 90 mcg/actuation aerosol inhaler 2 puff inhalation Q4H PRN PRN Shortness Of Breath 03/20/15 [History Last Taken 11/30/20] aspirin 81 mg chewable tablet 81 mg PO QHS heart health/stroke 03/20/15 [History Last Taken 12/01/20] montelukast 10 mg tablet 10 mg PO QHS asthma 03/20/15 [History Last Taken 12/01/20] spironolactone 25 mg tablet 25 mg PO DAILY water pill 03/20/15 [History Last Taken 12/01/20] torsemide 20 mg tablet 10 mg PO DAILY water pill 03/20/15 [History Last Taken 12/01/20] omeprazole 40 mg capsule,delayed release 40 mg PO PRN PRN stomach 06/14/19 [History Last Taken 12/02/20] losartan 25 mg tablet 12.5 - 25 mg PO DAILY BP 12/02/20 [History Last Taken 12/01/20] budesonide-formoterol HFA 160 mcg-4.5 mcg/actuation aerosol inhaler 2 puff inhalation BID breathing 06/10/21 [History Last Taken Unknown] nitrofurantoin macrocrystal 100 mg capsule (Macrodantin) 100 mg PO .PRN #20 caps 08/20/21 [Rx Last Taken Unknown] clopidogrel 75 mg tablet 1 tab PO DAILY 04/09/22 [History Last Taken Unknown] febuxostat 40 mg tablet 1 tab PO DAILY 04/09/22 [History Last Taken Unknown] albuterol sulfate 2.5 mg/3 mL (0.083 %) solution for nebulization 2.5 mg (3 mL) inhalation Q4H PRN #25 vials 04/18/22 [Rx Last Taken Unknown] azithromycin 250 mg tablet (Zithromax Z-Edwar) See Rx Instructions PO .COMPLEX #6 tabs 04/18/22 [Rx Last Taken Unknown] cefuroxime axetil 500 mg tablet 500 mg PO BID 7 days #14 tabs 04/18/22 [Rx Last Taken Unknown] Allergy/AdvReac Type Severity Reaction Status Date / Time diazepam [From Valium] Allergy seizures Verified 04/18/22 12:38 diphenhydramine HCl Allergy difficulty Verified 04/18/22 12:38 [From Benadryl] breathing esomeprazole magnesium Allergy chest pain Verified 04/18/22 12:38 [From Nexium] NSAIDS (Non-Steroidal Allergy Other Verified 04/18/22 12:38 Anti-Inflamma Penicillins Allergy Rash Verified 04/18/22 12:38 pentazocine lactate Allergy quit Verified 04/18/22 12:38 [From Talwin] breathing Sulfa (Sulfonamide Allergy Rash Verified 04/18/22 12:38 Antibiotics) sulfur dioxide Allergy massive Verified 04/18/22 12:38 headaches Family History Mother Cancer stomach throat Thyroid disorder Father Heart disease Surgical History H/O bilateral mastectomy H/O bilateral oophorectomy H/O dilation and curettage History of cholecystectomy History of colon surgery S/P RAFIA (total abdominal hysterectomy) Social History Smoking Status: Never smoker alcohol intake: never substance use type: does not use caffeine: Yes what type of physical activity do you participate in: walking and bicycling frequency: daily seatbelt use: always do you feel safe at home: Yes additional social history: Russell- Gisela are retired ROS ROS ED Constitutional Constitutional ED: Denies chills or weight loss Eyes Eyes: Denies change in vision or diplopia ENT ENT ED: Denies ear pain, rhinorrhea or sore throat Cardiovascular Cardiovascular: Reports chest pain; Denies orthopnea, palpitations or racing heartbeat Respiratory/Chest Respiratory/Chest: Denies cough, dyspnea or orthopnea Gastrointestinal Gastrointestinal: Denies abdominal pain, diarrhea, nausea or vomiting Genitourinary Genitourinary ED: Denies dysuria, hematuria or urinary frequency Musculoskeletal Musculoskeletal: Denies arthralgias or myalgias Integumentary Denies abscess or rash Neurologic Neurologic: Denies headache(s) or weakness Psychiatric Psychiatric: Denies anxiety, depression, suicidal ideation or suicidal thoughts Endocrine Endocrinology: Denies polydipsia, polyphagia or polyuria Allergic/Immunologic Allergic/Immunologic ED: Denies mouth swelling, tongue swelling or urticaria EXAM Physical Exam Const Vital Signs: 04/18/22 12:35 04/18/22 12:44 04/18/22 12:44 Temperature 98.1 F Temperature Source Temporal Pulse Rate 24 L 76 Respiratory Rate 76 H 14 Respiratory Effort Non-Labored Respiratory Pattern Normal Blood Pressure 139/60 H 139/60 H Blood Pressure Mean 86 86 Pulse Ox 99 98 Oxygen Delivery Method Room Air Room Air 04/18/22 13:47 Temperature Temperature Source Pulse Rate 71 Respiratory Rate 18 Respiratory Effort Respiratory Pattern Blood Pressure 106/46 L Blood Pressure Mean 66 Pulse Ox 99 Oxygen Delivery Method Room Air Positive well nourished and well developed General Appearance ED: well developed HEENT Reports normocephalic, head/scalp atraumatic and moist mucous membranes Eyes PERRL and EOMs intact bilaterally Neck no lymphadenopathy, supple and no JVD Resp normal respiratory effort and clear to auscultation bilaterally Cardio regular rate, regular rhythm and no murmurs GI normal to inspection, nondistended, normoactive bowel sounds and non-tender Palpation: soft Back/Spine no CVA tenderness and normal ROM Extremity normal to inspection General Extremety ED: Negative for edema General Extremity: Negative for edema Neuro oriented x3 and CN's II-XII intact bilaterally Sensorium / Orientation: alert Motor Exam: strength 5/5 throughout Psych mental status grossly normal Mood & Affect: Negative for depressed or tearful Skin no rashes or lesions noted and no wounds MDM MDM MDM Narrative Medical decision making narrative: Count is normal at 8.1 with a hemoglobin 11.1. Troponin 45 BMP with a creatinine of 1.16. My interpretation of the chest x-ray is probable left lower lobe pneumonia. CTA demonstrates no pulmonary embolism or changes consistent with left lower lobe pneumonia. Given the patient's comorbidities she will be treated with 2 antibiotics azithromycin and because of penicillin allergy cefuroxime. Also write for some albuterol solution in case she needs more. Would recommend using albuterol MDI every 6 hours. Lab Data Attestation: I reviewed the patient's lab results. Labs: Laboratory Results - last 24 hr 04/18/22 04/18/22 13:10 13:10 WBC 8.1 RBC 3.57 L Hgb 11.1 L Hct 34.4 L MCV 96.4 MCH 31.1 MCHC 32.3 RDW Std Deviation 46.5 H RDW Coeff of Yariel 13.2 Plt Count 242 MPV 9.1 Immature Gran % (Auto) 1.200 H Neut % (Auto) 76.7 H Lymph % (Auto) 11.9 L [place] % (Auto) 8.5 Eos % (Auto) 1.5 Baso % (Auto) 0.2 Absolute Neuts (auto) 6.2 Absolute Lymphs (auto) 0.97 Nucleated RBC % 0 Sodium 138 Potassium 3.9 Chloride 104 Carbon Dioxide 28.0 Anion Gap 6 BUN 23 H Creatinine 1.16 H Estim Creat Clear Calc 35.73 Est GFR (MDRD) Af Amer 57 L Est GFR (MDRD) Non-Af 47 L BUN/Creatinine Ratio 19.8 Glucose 114 H Calcium 8.6 Troponin I High Sens 45 Radiography Diagnostic Testing: Clinical Impression(s) from Imaging Studies Chest CTA 04/18/22 13:01 IMPRESSION: No demonstrated pulmonary embolism or arterial dissection. Left lower lobe patchy opacities concerning for pneumonia. Atherosclerosis. Electronically Signed: Nanda Ward MD at 14:13 EDT , Chest X-Ray 04/18/22 13:55 IMPRESSION: Nonspecific left basilar opacities may reflect pneumonia. Electronically Signed: Nanda Ward MD at 14:15 EDT , EKG Initial EKG: Attestation: I personally reviewed and interpreted this EKG as follows: Interpretation: Sinus Rhythm Comments: Sinus rhythm ventricular rate of 76 bpm. Prior: Unchanged (11 JUN 2021) Discharge Plan Triage Chief Complaint: Chest Pain ED Provider: Blade Flores Dx/Rx/DC Orders Clinical Impression: Pneumonia, Stage III chronic kidney disease, Asthma, Chest pain Instructions: ED Pleurisy, ED Pneumonia (Adult) Prescriptions: New albuterol sulfate 2.5 mg /3 mL (0.083 %) solution for nebulization 2.5 mg inhalation Q4H PRN Qty: 25 0RF Rx Instructions: Use q4 hours and PRN for wheezing cefuroxime axetil 500 mg tablet 500 mg PO BID 7 Days Qty: 14 0RF azithromycin [Zithromax Z-Edwar] 250 mg tablet See Rx Instructions .ROUTE .COMPLEX Qty: 6 0RF Rx Instructions: For 250 mg dose pack: take 500 mg today (day 1), then 250 mg for 4 days (days 2-5) No Action torsemide 20 MG tablet 10 mg PO DAILY Rx Instructions: 1-2 depending on leg edema spironolactone 25 MG tablet 25 mg PO DAILY aspirin 81 MG tablet,chewable 81 mg PO QHS montelukast 10 MG tablet 10 mg PO QHS Label Comments: asthma albuterol sulfate 1 INHALER inhaler 2 puff INHALATION Q4H PRN PRN (Reason: Shortness Of Breath) omeprazole 40 MG capsule,delayed release(DR/EC) 40 mg PO PRN PRN (Reason: stomach) budesonide-formoterol 160-4.5 mcg/actuation HFA aerosol inhaler 2 puff inhalation BID losartan 25 MG tablet 12.5 - 25 mg PO DAILY clopidogrel 75 mg tablet 1 tab PO DAILY febuxostat 40 mg tablet 1 tab PO DAILY nitrofurantoin macrocrystal [Macrodantin] 100 mg capsule 100 mg PO .PRN Qty: 20 3RF Rx Instructions: take one tablet after intercourse and one tablet the next morning Primary Care Provider: Julius Sandoval Referrals: Julius Sandoval MD [Primary Care Provider] - 3-5 Days Disposition Disposition: Home, Self Care
[2022-04-18 13:23] LABS: Absolute Lymphocyte Count 0.97 X10^3/uL (0.83-4.51); Absolute Neutrophil Count 6.2 X10^3/uL (2.0-7.7); Basophil# 0.02 X10^3/uL; Basophil% 0.2 % (0-1); Eosinophil# 0.12 X10^3/uL; Eosinophils% 1.5 % (0-5); Hematocrit 34.4 % (37-47); Hemoglobin 11.1 g/dL (12.0-15.0); Lymphocyte # 0.97 X10^3/ul (0.83-4.51); Lymphocyte % 11.9 % (19-41); Mean Corp Hgb Conc 32.3 g/dL (32-36); Mean Corpuscular Hgb 31.1 pg (27.0-32.0); Mean Corpuscular Volume 96.4 fL (81-99); Mean Platelet Vol. 9.1 fl (6.2-12.0); Monocyte# 0.69 X10^3/uL; Monocyte% 8.5 % (0-10); NRBC Flagged by Analyzer 0 % (0-5); Neutrophil # 6.24 X10^3/uL (2.7-7.7); Neutrophil % 76.7 % (47-70); Platelet Count 242 K/mm3 (150-450); RBC Distribution Width CV 13.2 % (11.6-14.6); RBC Distribution Width SD 46.5 fl (35.1-43.9); Red Blood Count 3.57 M/mm3 (4.2-5.4); White Blood Count 8.1 K/mm3 (4.4-11.0)
[2022-04-18 13:41] LABS: Anion Gap 6 (5-15); BUN 23 mg/dL (7-18); BUN/Creat Ratio 19.8 RATIO (10-20); Calcium,Total 8.6 mg/dL (8.5-10.1); Chloride 104 mmol/L (98-107); Creatinine, Serum 1.16 mg/dL (0.55-1.02); EST Glomerular Filtration Rate 47 mL/min (>60); Est Glom Filt Rate - Afr Amer 57 mL/min (>60); Estimated Creatinine Clearance 35.73 ml/min; Glucose 114 mg/dL (74-106); Potassium 3.9 mmol/L (3.5-5.1); Sodium Level 138 mmol/L (136-145); Troponin-I HS 45 pg/mL (3.0-54.0)
[2022-04-18 13:47] VITALS: BP 106/46; PULSE 71; RESP 18; O2SAT 99
--- NOTE | 2022-04-18 13:55 | RAD_ITS ---
STUDY: X-RAY CHEST REASON FOR EXAM: Female, 81 years old. Chest pain TECHNIQUE: Single frontal view of the chest. COMPARISON: 04/09/2022. FINDINGS: There are few left basilar patchy opacities. Normal size heart. Normal mediastinum and joseph. Normal visualized pulmonary arteries. There is atherosclerotic calcification of the aortic arch with tortuosity. Normal visualized thoracic spine. There are postsurgical changes of the right proximal humerus. There is no demonstrated abnormality of the visualized soft tissue structures of the upper abdomen. RAD/Chest 1 View (Portable) IMPRESSION: Nonspecific left basilar opacities may reflect pneumonia. Electronically Signed: Nanda Ward MD at 14:15 EDT ,
[2022-04-18 14:54] VITALS: BP 105/62; PULSE 74; RESP 18; O2SAT 99
== END 2022-04-18 14:58 | disposition home or self-care (01) ==
PROVIDERS: Emergency Provider Emergency Medicine; PCP Family Medicine; Visit Provider Emergency Medicine
DX: J18.9 Pneumonia, unspecified organism (principal); I13.0 Hypertensive heart and chronic kidney disease with heart failure and stage 1 through stage 4 chronic kidney disease, or unspecified chronic kidney disease; I50.9 Heart failure, unspecified; I73.9 Peripheral vascular disease, unspecified; N18.30 Chronic kidney disease, stage 3 unspecified; J45.909 Unspecified asthma, uncomplicated; Z79.82 Long term (current) use of aspirin; Z79.899 Other long term (current) drug therapy
CPT/HCPCS: 71045; 71275; 80048; 84484; 85025; 93005; 99284; Q9967; A4216

== ENCOUNTER 2022-05-19 15:27 | Emergency (ER) | payer MEDICARE, SELFPAY ==
[2022-05-19 15:28] VITALS: BP 140/62; PULSE 87; RESP 14; TEMP 36.2; O2SAT 98; BMI 26.2
--- NOTE | 2022-05-19 15:47 | EDS_ITS ---
HPI History of Present Illness Chief Complaint: Lower Extremity Injury Informant: patient Narrative Narrative: Is working in the [employer]. She had a log roll against her right balbuena. She is able to walk without difficulty. But she did get a skin tear. She is on Plavix and aspirin so does have some oozing. No other injury or problems. Last tetanus was July 2020. Nothing makes this worse, putting a dressing on it did make it feel better. Tetanus Immunization: <5 years PFSH PFS Medical History Bilateral lower extremity edema Broken heart syndrome Congestive heart failure DVT (deep venous thrombosis) Endometrial cancer GI bleed History of breast cancer History of stroke Hypertension Kidney disease Kidney stones Laceration without foreign body, right lower leg, sequela Myocardial infarction Osteoporosis PVD (peripheral vascular disease) Seizures Stroke/cerebrovascular accident Traumatic hematoma of right lower leg Venous ulcer of right lower extremity with varicose veins Home Medications albuterol sulfate 90 mcg/actuation aerosol inhaler 2 puff inhalation Q4H PRN PRN Shortness Of Breath 03/20/15 [History Last Taken 11/30/20] aspirin 81 mg chewable tablet 81 mg PO QHS heart health/stroke 03/20/15 [History Last Taken 12/01/20] montelukast 10 mg tablet 10 mg PO QHS asthma 03/20/15 [History Last Taken 12/01/20] spironolactone 25 mg tablet 25 mg PO DAILY water pill 03/20/15 [History Last Taken 12/01/20] torsemide 20 mg tablet 10 mg PO DAILY water pill 03/20/15 [History Last Taken 12/01/20] omeprazole 40 mg capsule,delayed release 40 mg PO PRN PRN stomach 06/14/19 [History Last Taken 12/02/20] losartan 25 mg tablet 12.5 - 25 mg PO DAILY BP 12/02/20 [History Last Taken 12/01/20] budesonide-formoterol HFA 160 mcg-4.5 mcg/actuation aerosol inhaler 2 puff inhalation BID breathing 02/25/21 [History Last Taken Unknown] nitrofurantoin macrocrystal 100 mg capsule (Macrodantin) 100 mg PO .PRN #20 caps 08/20/21 [Rx Last Taken Unknown] clopidogrel 75 mg tablet 1 tab PO DAILY 04/09/22 [History Last Taken Unknown] febuxostat 40 mg tablet 1 tab PO DAILY 04/09/22 [History Last Taken Unknown] albuterol sulfate 2.5 mg/3 mL (0.083 %) solution for nebulization 2.5 mg (3 mL) inhalation Q4H PRN #25 vials 04/18/22 [Rx Last Taken Unknown] azithromycin 250 mg tablet (Zithromax Z-Edwar) See Rx Instructions PO .COMPLEX #6 tabs 04/18/22 [Rx Last Taken Unknown] cefuroxime axetil 500 mg tablet 500 mg PO BID 7 days #14 tabs 04/18/22 [Rx Last Taken Unknown] Allergy/AdvReac Type Severity Reaction Status Date / Time diazepam [From Valium] Allergy seizures Verified 05/19/22 15:28 diphenhydramine HCl Allergy difficulty Verified 05/19/22 15:28 [From Benadryl] breathing esomeprazole magnesium Allergy chest pain Verified 05/19/22 15:28 [From Nexium] NSAIDS (Non-Steroidal Allergy Other Verified 05/19/22 15:28 Anti-Inflamma Penicillins Allergy Rash Verified 05/19/22 15:28 pentazocine lactate Allergy quit Verified 05/19/22 15:28 [From Talwin] breathing Sulfa (Sulfonamide Allergy Rash Verified 05/19/22 15:28 Antibiotics) sulfur dioxide Allergy massive Verified 05/19/22 15:28 headaches Family History Mother Cancer stomach throat Thyroid disorder Father Heart disease Surgical History H/O bilateral mastectomy H/O bilateral oophorectomy H/O dilation and curettage History of cholecystectomy History of colon surgery S/P RAFIA (total abdominal hysterectomy) Social History Smoking Status: Never smoker alcohol intake: never substance use type: does not use caffeine: Yes what type of physical activity do you participate in: walking and bicycling frequency: daily seatbelt use: always do you feel safe at home: Yes additional social history: Russell- Both are retired ROS ROS ED Constitutional Constitutional ED: Denies fever(s) Cardiovascular Cardiovascular: Denies chest pain Respiratory/Chest Respiratory/Chest: Denies cough or dyspnea Gastrointestinal Gastrointestinal: Denies nausea or vomiting Musculoskeletal Musculoskeletal: Reports other Details: Discomfort in the right anterior balbuena. But no pain with walking. ; Denies back pain or neck pain Integumentary Reports other Details: Large skin tear Neurologic Neurologic: Denies paresthesias or weakness Hematologic/Lymphatic Hematologic/Lymphatic: Reports easy bleeding and easy bruising EXAM Physical Exam Const Vital Signs: 05/19/22 15:28 Temperature 97.2 F L Temperature Source Temporal Pulse Rate 87 Respiratory Rate 14 Blood Pressure 140/62 H Blood Pressure Mean 88 Pulse Ox 98 Oxygen Delivery Method Room Air Positive well nourished and well developed General Appearance ED: well developed and NAD HEENT normocephalic and atraumatic Chest Wall inspection of chest normal Resp normal respiratory effort Cardio regular rate GI non-tender and non-distended Back/Spine Back/Spine Narrative: No back pain or tenderness or pain with motion. Extremity Extremity Narrative: Patient is a large dressing in the right lower extremity. I unwrapped this. We irrigated it. There is a V shaped skin tear on the anterior balbuena in the lower third. Total length of the skin tear is approximately 9 cm. The skin was gathered at the bottom. We irrigated and cleaned this and pulled the skin up. But her skin is so thin in that area this would not be amenable to suturing without creating further injury. There is minimal ooze at the site but no notable bleeding of significance. There is no bony tenderness. Patient actually got up and walked to the bathroom without difficulties. Neuro Sensorium / Orientation: alert Skin Skin Narrative: See above regarding skin tear. MDM MDM MDM Narrative Medical decision making narrative: Tetanus is up-to-date as of July 2020. The area is cleaned and irrigated. It will be dressed with bacitracin nonadherent dressing. This is not amenable to suturing without further tearing of the skin. Patient has had these before. She knows they take a long time to heal. She has been seen in the wound center. Considering her age that thinness of the skin in the area torn and the size I think follow-up in the wound center would be good. We discussed returning with redness fevers drainage odor increasing pain. I do not think images are needed as there is really no bony tenderness. We have irrigated and cleaned the area well. Discharge Plan Triage Chief Complaint: Lower Extremity Injury ED Provider: Bony Zhang Dx/Rx/DC Orders Clinical Impression: Skin tear of right lower leg without complication Instructions: ED Skin Avulsion Prescriptions: No Action torsemide 20 MG tablet 10 mg PO DAILY Rx Instructions: 1-2 depending on leg edema spironolactone 25 MG tablet 25 mg PO DAILY aspirin 81 MG tablet,chewable 81 mg PO QHS montelukast 10 MG tablet 10 mg PO QHS Label Comments: asthma albuterol sulfate 1 INHALER inhaler 2 puff INHALATION Q4H PRN PRN (Reason: Shortness Of Breath) omeprazole 40 MG capsule,delayed release(DR/EC) 40 mg PO PRN PRN (Reason: stomach) budesonide-formoterol 160-4.5 mcg/actuation HFA aerosol inhaler 2 puff inhalation BID losartan 25 MG tablet 12.5 - 25 mg PO DAILY clopidogrel 75 mg tablet 1 tab PO DAILY febuxostat 40 mg tablet 1 tab PO DAILY albuterol sulfate 2.5 mg /3 mL (0.083 %) solution for nebulization 2.5 mg inhalation Q4H PRN Qty: 25 0RF Rx Instructions: Use q4 hours and PRN for wheezing cefuroxime axetil 500 mg tablet 500 mg PO BID 7 Days Qty: 14 0RF azithromycin [Zithromax Z-Edwar] 250 mg tablet See Rx Instructions .ROUTE .COMPLEX Qty: 6 0RF Rx Instructions: For 250 mg dose pack: take 500 mg today (day 1), then 250 mg for 4 days (days 2-5) nitrofurantoin macrocrystal [Macrodantin] 100 mg capsule 100 mg PO .PRN Qty: 20 3RF Rx Instructions: take one tablet after intercourse and one tablet the next morning Primary Care Provider: Julius Sandoval Referrals: Julius Sandoval MD [Primary Care Provider] - 3-5 Days Activity Restrictions/Additional Instructions: Contact your primary physician about following up with wound center. Disposition Disposition: Home, Self Care
[2022-05-19 16:02] VITALS: BP 136/70; PULSE 87; RESP 18; O2SAT 99
== END 2022-05-19 16:04 | disposition home or self-care (01) ==
PROVIDERS: Emergency Provider Emergency Medicine; PCP Family Medicine; Visit Provider Emergency Medicine
DX: S81.811A Laceration without foreign body, right lower leg, initial encounter (principal); I11.0 Hypertensive heart disease with heart failure; I50.9 Heart failure, unspecified; Z79.82 Long term (current) use of aspirin; Z79.899 Other long term (current) drug therapy; W22.8XXA Striking against or struck by other objects, initial encounter
CPT/HCPCS: 99282

== ENCOUNTER 2022-05-24 12:14 | Emergency (ER) | payer MEDICARE, SELFPAY ==
[2022-05-24 12:15] VITALS: BP 158/134; PULSE 80; RESP 18; TEMP 35.9; O2SAT 100; BMI 25.3
--- NOTE | 2022-05-24 12:36 | ED.VIS.LOWEX ---
HPI History of Present Illness Chief Complaint: Wound Informant: patient Onset/Context/Timing Onset: Days (5) Context: Sudden Onset Timing: Continuous Quality of Pain: - (sore) Location: Redness distal to wound right lower leg Current Severity: Mild Maximum Severity: Moderate Worsened by: Palpation Relieved by: Leaving alone Associated Symptoms Associated Symptoms: Negative for Parasthesia, Weakness or Loss of Funtion Narrative Narrative: Patient had a skin tear last week and was seen here, from a log falling on it. She is concerned that it is getting a little more red and sore distal to the wound in the last couple days so she was seen at an urgent care and sent here for IV antibiotics according to the patient. I do not have access to any of the documentation from the urgent care, nor did they contact us about this particular patient. She denies any systemic symptoms or fevers, she is having some minor bleeding from the area, she takes clopidogrel and aspirin, she denies any other discharge. She has been doing dressing changes daily she tried to get into the wound center as she was advised from her visit to the ER last week, and she states that they are weeks out. [facility] Medical History Bilateral lower extremity edema Broken heart syndrome Congestive heart failure DVT (deep venous thrombosis) Endometrial cancer GI bleed History of breast cancer History of stroke Hypertension Kidney disease Kidney stones Laceration without foreign body, right lower leg, sequela Myocardial infarction Osteoporosis PVD (peripheral vascular disease) Seizures Stroke/cerebrovascular accident Traumatic hematoma of right lower leg Venous ulcer of right lower extremity with varicose veins Home Medications albuterol sulfate 90 mcg/actuation aerosol inhaler 2 puff inhalation Q4H PRN PRN Shortness Of Breath 03/20/15 [History Last Taken 11/30/20] aspirin 81 mg chewable tablet 81 mg PO QHS heart health/stroke 03/20/15 [History Last Taken 12/01/20] montelukast 10 mg tablet 10 mg PO QHS asthma 03/20/15 [History Last Taken 12/01/20] spironolactone 25 mg tablet 25 mg PO DAILY water pill 03/20/15 [History Last Taken 12/01/20] torsemide 20 mg tablet 10 mg PO DAILY water pill 03/20/15 [History Last Taken 12/01/20] omeprazole 40 mg capsule,delayed release 40 mg PO PRN PRN stomach 06/14/19 [History Last Taken 12/02/20] losartan 25 mg tablet 12.5 - 25 mg PO DAILY BP 12/02/20 [History Last Taken 12/01/20] budesonide-formoterol HFA 160 mcg-4.5 mcg/actuation aerosol inhaler 2 puff inhalation BID breathing 02/25/21 [History Last Taken Unknown] nitrofurantoin macrocrystal 100 mg capsule (Macrodantin) 100 mg PO .PRN #20 caps 08/20/21 [Rx Last Taken Unknown] clopidogrel 75 mg tablet 1 tab PO DAILY 04/09/22 [History Last Taken Unknown] febuxostat 40 mg tablet 1 tab PO DAILY 04/09/22 [History Last Taken Unknown] albuterol sulfate 2.5 mg/3 mL (0.083 %) solution for nebulization 2.5 mg (3 mL) inhalation Q4H PRN #25 vials 04/18/22 [Rx Last Taken Unknown] cephalexin 500 mg capsule 500 mg PO TID #21 CAPSULES 05/24/22 [Rx Last Taken Unknown] Allergy/AdvReac Type Severity Reaction Status Date / Time diazepam [From Valium] Allergy seizures Verified 05/24/22 12:20 diphenhydramine HCl Allergy difficulty Verified 05/24/22 12:20 [From Benadryl] breathing esomeprazole magnesium Allergy chest pain Verified 05/24/22 12:20 [From Nexium] NSAIDS (Non-Steroidal Allergy Other Verified 05/24/22 12:20 Anti-Inflamma Penicillins Allergy Rash Verified 05/24/22 12:20 pentazocine lactate Allergy quit Verified 05/24/22 12:20 [From Talwin] breathing Sulfa (Sulfonamide Allergy Rash Verified 05/24/22 12:20 Antibiotics) sulfur dioxide Allergy massive Verified 05/24/22 12:20 headaches Family History Mother Cancer stomach throat Thyroid disorder Father Heart disease Surgical History H/O bilateral mastectomy H/O bilateral oophorectomy H/O dilation and curettage History of cholecystectomy History of colon surgery S/P RAFIA (total abdominal hysterectomy) Social History Smoking Status: Never smoker alcohol intake: never substance use type: does not use caffeine: Yes what type of physical activity do you participate in: walking and bicycling frequency: daily seatbelt use: always do you feel safe at home: Yes additional social history: Russell- Both are retired ROS ROS ED Constitutional Constitutional ED: Denies chills or fever(s) Cardiovascular Cardiovascular: Reports leg edema Musculoskeletal Musculoskeletal: Reports extremity pain; Denies neck pain Integumentary Reports wounds; Denies Abrasions or rash Neurologic Neurologic: Denies paresthesias or weakness EXAM Physical Exam Const Vital Signs: 05/24/22 12:15 Temperature 96.6 F L Temperature Source Temporal Pulse Rate 80 Respiratory Rate 18 Blood Pressure 158/134 H Blood Pressure Mean 142 Pulse Ox 100 Oxygen Delivery Method Room Air Positive well nourished and well developed General Appearance ED: well developed and NAD Neck full ROM and supple Back/Spine normal ROM and normal to inspection Extremity Extremity Narrative: There is a skin tear at the anterior mid right lower leg, it may be a type II, does not appear to be a type III and more likely to be just a type I. There is bruising around it, and more erythema distally which is all tender. There is no erythema proximally or lymphangitis. No abscess. No expressible discharge or bleeding, there is no active bleeding, the wound beneath the skin tear is covered in clot. Neuro oriented x3, no focal motor deficits and no sensory deficits noted Sensorium / Orientation: alert Psych mental status grossly normal and thought process normal Skin Skin Narrative: See above for description of the wound and some erythema distal. No induration. No lymphangitis. No inguinal lymphadenopathy. Rashes: no rashes MDM MDM MDM Narrative Medical decision making narrative: If this truly is infected, it is not severe. My suspicion is that it is not infected, since the erythema is distal to the wound and not proximal, suggesting ecchymosis that is dependent due to gravity. Since the patient has chronic edema in both of her legs certainly she is at some increased risk for infection of this wound, I reassured her that it would be reasonable to put her on antibiotics but she does not need an IV infusion. I do not think she needs any other testing right now. She is doing a good job with dressing changes at home, using nonstick supplies and trying to keep the skin flap over the wound, I gave her an IM dose of Ancef 1 g, and a prescription for cephalexin renal dosing according to her last renal function, 500 mg 3 times daily for 7 days. She has had cephalexin before and tolerated it, she declares a rash reaction to penicillins, so she should be fine with that. I would advise continuing to try to follow-up with wound care even if they are couple weeks out, if everything is healed by then she can always cancel the appointment. She is comfortable with that plan. Discharge Plan Triage Chief Complaint: Wound Other Complaint: Lower Extremity Injury ED Provider: Martin Espitia Dx/Rx/DC Orders Clinical Impression: Infected skin tear, Stage III chronic kidney disease Instructions: ED Wound Check (Infection) Prescriptions: New cephalexin [cephalexin] 500 mg capsule 500 mg PO TID Qty: 21 0RF No Action torsemide 20 MG tablet 10 mg PO DAILY Rx Instructions: 1-2 depending on leg edema spironolactone 25 MG tablet 25 mg PO DAILY aspirin 81 MG tablet,chewable 81 mg PO QHS montelukast 10 MG tablet 10 mg PO QHS Label Comments: asthma albuterol sulfate 1 INHALER inhaler 2 puff INHALATION Q4H PRN PRN (Reason: Shortness Of Breath) omeprazole 40 MG capsule,delayed release(DR/EC) 40 mg PO PRN PRN (Reason: stomach) budesonide-formoterol 160-4.5 mcg/actuation HFA aerosol inhaler 2 puff inhalation BID losartan 25 MG tablet 12.5 - 25 mg PO DAILY clopidogrel 75 mg tablet 1 tab PO DAILY febuxostat 40 mg tablet 1 tab PO DAILY albuterol sulfate 2.5 mg /3 mL (0.083 %) solution for nebulization 2.5 mg inhalation Q4H PRN Qty: 25 0RF Rx Instructions: Use q4 hours and PRN for wheezing nitrofurantoin macrocrystal [Macrodantin] 100 mg capsule 100 mg PO .PRN Qty: 20 3RF Rx Instructions: take one tablet after intercourse and one tablet the next morning Primary Care Provider: Julius Sandoval Referrals: Julius Sandoval MD [Primary Care Provider] - Center,Wound [Non-Staff] - As soon as possible (call for appt) Disposition Disposition: Home, Self Care
[2022-05-24] MEDS: Cefazolin 1 GM/5 ML Vial IM (13:01)
--- NOTE | 2022-05-24 13:10 | ED.RN ---
pt did not want wheeled out of hospital. walking out with spouse.
== END 2022-05-24 13:10 | disposition home or self-care (01) ==
LOC: ED 12:49
PROVIDERS: Emergency Provider Emergency Medicine; PCP Family Medicine; Visit Provider Emergency Medicine
DX: R60.0 Localized edema (principal); I13.0 Hypertensive heart and chronic kidney disease with heart failure and stage 1 through stage 4 chronic kidney disease, or unspecified chronic kidney disease; I50.9 Heart failure, unspecified; N18.30 Chronic kidney disease, stage 3 unspecified; S81.801A Unspecified open wound, right lower leg, initial encounter; T36.0X5A Adverse effect of penicillins, initial encounter; S81.802A Unspecified open wound, left lower leg, initial encounter; Z79.82 Long term (current) use of aspirin; X58.XXXA Exposure to other specified factors, initial encounter
CPT/HCPCS: 96372; 99282

== ENCOUNTER 2022-05-27 11:38 | Emergency (ER) | payer MEDICARE, SELFPAY ==
[2022-05-27 11:39] VITALS: BP 154/56; PULSE 83; RESP 16; TEMP 36.2; O2SAT 100; BMI 25.3
--- NOTE | 2022-05-27 12:20 | EDS_ITS ---
HPI History of Present Illness Chief Complaint: Cellulitis Informant: patient Onset/Context/Timing Onset: Days Context: Gradual Onset Timing: Continuous Quality: Stabbing Location: Right lower leg Worsened by: Nothing Relieved by: Elevation Associated Symptoms Associated Symptoms: Malodorous drainage Narrative Narrative: Patient is with open wound to her right lower leg that has been constant for several days. Patient states she was recently prescribed clindamycin through the emergency department here. Patient states that the redness is starting to progress up her leg. Patient admits to a fever of 100 degrees. Patient states she is having some malodorous drainage from the wound. Patient denies any nausea or vomiting. Patient denies any chest pain or shortness of breath. Patient denies any body aches or muscle aches. PFSH PFS Medical History Bilateral lower extremity edema Broken heart syndrome Congestive heart failure DVT (deep venous thrombosis) Endometrial cancer GI bleed History of breast cancer History of stroke Hypertension Kidney disease Kidney stones Laceration without foreign body, right lower leg, sequela Myocardial infarction Osteoporosis PVD (peripheral vascular disease) Seizures Stroke/cerebrovascular accident Traumatic hematoma of right lower leg Venous ulcer of right lower extremity with varicose veins Home Medications albuterol sulfate 90 mcg/actuation aerosol inhaler 2 puff inhalation Q4H PRN PRN Shortness Of Breath 03/20/15 [History Last Taken 11/30/20] aspirin 81 mg chewable tablet 81 mg PO QHS heart health/stroke 03/20/15 [History Last Taken 12/01/20] montelukast 10 mg tablet 10 mg PO QHS asthma 03/20/15 [History Last Taken 12/01/20] spironolactone 25 mg tablet 25 mg PO DAILY water pill 03/20/15 [History Last Taken 12/01/20] torsemide 20 mg tablet 10 mg PO DAILY water pill 03/20/15 [History Last Taken 12/01/20] omeprazole 40 mg capsule,delayed release 40 mg PO PRN PRN stomach 06/14/19 [History Last Taken 12/02/20] losartan 25 mg tablet 12.5 - 25 mg PO DAILY BP 12/02/20 [History Last Taken 12/01/20] budesonide-formoterol HFA 160 mcg-4.5 mcg/actuation aerosol inhaler 2 puff inhalation BID breathing 02/25/21 [History Last Taken Unknown] nitrofurantoin macrocrystal 100 mg capsule (Macrodantin) 100 mg PO .PRN #20 caps 08/20/21 [Rx Last Taken Unknown] clopidogrel 75 mg tablet 1 tab PO DAILY 04/09/22 [History Last Taken Unknown] febuxostat 40 mg tablet 1 tab PO DAILY 04/09/22 [History Last Taken Unknown] albuterol sulfate 2.5 mg/3 mL (0.083 %) solution for nebulization 2.5 mg (3 mL) inhalation Q4H PRN #25 vials 04/18/22 [Rx Last Taken Unknown] cephalexin 500 mg capsule 500 mg PO TID #21 CAPSULES 05/24/22 [Rx Last Taken Unknown] Allergy/AdvReac Type Severity Reaction Status Date / Time diazepam [From Valium] Allergy seizures Verified 05/27/22 11:42 diphenhydramine HCl Allergy difficulty Verified 05/27/22 11:42 [From Benadryl] breathing esomeprazole magnesium Allergy chest pain Verified 05/27/22 11:42 [From Nexium] NSAIDS (Non-Steroidal Allergy Other Verified 05/27/22 11:42 Anti-Inflamma Penicillins Allergy Rash Verified 05/27/22 11:42 pentazocine lactate Allergy quit Verified 05/27/22 11:42 [From Talwin] breathing Sulfa (Sulfonamide Allergy Rash Verified 05/27/22 11:42 Antibiotics) sulfur dioxide Allergy massive Verified 05/27/22 11:42 headaches Family History Mother Cancer stomach throat Thyroid disorder Father Heart disease Surgical History H/O bilateral mastectomy H/O bilateral oophorectomy H/O dilation and curettage History of cholecystectomy History of colon surgery S/P RAFIA (total abdominal hysterectomy) Social History Smoking Status: Never smoker alcohol intake: never substance use type: does not use caffeine: Yes what type of physical activity do you participate in: walking and bicycling frequency: daily seatbelt use: always do you feel safe at home: Yes additional social history: Russell- Both are retired ROS ROS ED Constitutional Constitutional ED: Reports fever(s); Denies chills Eyes Eyes: Denies blurry vision or change in vision ENT ENT ED: Denies rhinorrhea or sore throat Cardiovascular Cardiovascular: Denies chest pain or palpitations Respiratory/Chest Respiratory/Chest: Denies cough or dyspnea Gastrointestinal Gastrointestinal: Denies nausea or vomiting Genitourinary Genitourinary ED: Denies dysuria or hematuria Musculoskeletal Musculoskeletal: Denies back pain or neck pain Integumentary Denies abscess or rash Neurologic Neurologic: Denies headache(s) or weakness Allergic/Immunologic Allergic/Immunologic ED: Denies mouth swelling or urticaria EXAM Physical Exam Const Vital Signs: 05/27/22 11:39 Temperature 97.2 F L Temperature Source Temporal Pulse Rate 83 Respiratory Rate 16 Blood Pressure 154/56 H Blood Pressure Mean 88 Pulse Ox 100 Oxygen Delivery Method Room Air Positive well nourished and well developed General Appearance ED: well developed and NAD HEENT Reports moist mucous membranes Neck supple Extremity Extremity Narrative: There is a open wound over the anterior aspect of the right lower leg. There is some surrounding erythema. There is no purulent drainage noted. There is some mild tenderness over this area. Pedal pulses are equal bilaterally. Sensation was intact to light touch in all digits. Capillary refill was less than 2 seconds in all digits. There is good range of motion of the right knee and right ankle. General Extremety ED: Yes tenderness Neuro oriented x3, CN's II-XII intact bilaterally and no sensory deficits noted Sensorium / Orientation: alert Motor Exam: strength 5/5 throughout MDM MDM MDM Narrative Medical decision making narrative: Patient was given dose of IV Levaquin here. CBC was within normal limits. Basic metabolic profile shows a creatinine of 1.2. This is consistent with prior results. Wound culture was obtained. Patient was advised of her findings. Patient states she has an appointment with the wound care center in 3 days. Patient was advised that the wound culture results should be back by the time she follows up in the wound care center. Patient was instructed to continue her Keflex as prescribed. Patient understood and was agreeable with the plan. All questions were answered. Lab Data Attestation: I reviewed the patient's lab results. Labs: Laboratory Results - last 24 hr 05/27/22 05/27/22 12:58 12:58 WBC 6.4 RBC 3.70 L Hgb 11.4 L Hct 35.7 L MCV 96.5 MCH 30.8 MCHC 31.9 L RDW Std Deviation 47.8 H RDW Coeff of Yariel 13.5 Plt Count 269 MPV 8.7 Immature Gran % (Auto) 0.300 Neut % (Auto) 78.4 H Lymph % (Auto) 12.3 L [place] % (Auto) 7.5 Eos % (Auto) 1.2 Baso % (Auto) 0.3 Absolute Neuts (auto) 5.1 Absolute Lymphs (auto) 0.79 L Nucleated RBC % 0 Sodium 138 Potassium 4.3 Chloride 105 Carbon Dioxide 27.0 Anion Gap 6 BUN 50 H Creatinine 1.20 H Estim Creat Clear Calc 26.80 Est GFR (MDRD) Af Amer 55 L Est GFR (MDRD) Non-Af 46 L BUN/Creatinine Ratio 41.7 H Glucose 116 H Calcium 9.5 Discharge Plan Triage Chief Complaint: Cellulitis ED Provider: Mainor Hernandez Dx/Rx/DC Orders Clinical Impression: Infected skin tear, Cellulitis of right anterior lower leg Instructions: ED Cellulitis Prescriptions: No Action torsemide 20 MG tablet 10 mg PO DAILY Rx Instructions: 1-2 depending on leg edema spironolactone 25 MG tablet 25 mg PO DAILY aspirin 81 MG tablet,chewable 81 mg PO QHS montelukast 10 MG tablet 10 mg PO QHS Label Comments: asthma albuterol sulfate 1 INHALER inhaler 2 puff INHALATION Q4H PRN PRN (Reason: Shortness Of Breath) omeprazole 40 MG capsule,delayed release(DR/EC) 40 mg PO PRN PRN (Reason: stomach) budesonide-formoterol 160-4.5 mcg/actuation HFA aerosol inhaler 2 puff inhalation BID losartan 25 MG tablet 12.5 - 25 mg PO DAILY clopidogrel 75 mg tablet 1 tab PO DAILY febuxostat 40 mg tablet 1 tab PO DAILY albuterol sulfate 2.5 mg /3 mL (0.083 %) solution for nebulization 2.5 mg inhalation Q4H PRN Qty: 25 0RF Rx Instructions: Use q4 hours and PRN for wheezing cephalexin [cephalexin] 500 mg capsule 500 mg PO TID Qty: 21 0RF nitrofurantoin macrocrystal [Macrodantin] 100 mg capsule 100 mg PO .PRN Qty: 20 3RF Rx Instructions: take one tablet after intercourse and one tablet the next morning Primary Care Provider: Julius Sandoval Referrals: Julius Sandoval MD [Primary Care Provider] - 3-5 Days Center,Wound [Non-Staff] - Keep Pardeep appointment Activity Restrictions/Additional Instructions: Continue your home antibiotics as prescribed. You were prescribed a 7-day course of cephalexin. Take this until it is gone. Disposition Disposition: Home, Self Care
[2022-05-27 13:24] LABS: Absolute Lymphocyte Count 0.79 X10^3/uL (0.83-4.51); Absolute Neutrophil Count 5.1 X10^3/uL (2.0-7.7); Basophil# 0.02 X10^3/uL; Basophil% 0.3 % (0-1); Eosinophil# 0.08 X10^3/uL; Eosinophils% 1.2 % (0-5); Hematocrit 35.7 % (37-47); Hemoglobin 11.4 g/dL (12.0-15.0); Lymphocyte # 0.79 X10^3/ul (0.83-4.51); Lymphocyte % 12.3 % (19-41); Mean Corp Hgb Conc 31.9 g/dL (32-36); Mean Corpuscular Hgb 30.8 pg (27.0-32.0); Mean Corpuscular Volume 96.5 fL (81-99); Mean Platelet Vol. 8.7 fl (6.2-12.0); Monocyte# 0.48 X10^3/uL; Monocyte% 7.5 % (0-10); NRBC Flagged by Analyzer 0 % (0-5); Neutrophil # 5.05 X10^3/uL (2.7-7.7); Neutrophil % 78.4 % (47-70); Platelet Count 269 K/mm3 (150-450); RBC Distribution Width CV 13.5 % (11.6-14.6); RBC Distribution Width SD 47.8 fl (35.1-43.9); White Blood Count 6.4 K/mm3 (4.4-11.0)
[2022-05-27] MEDS: levoFLOXacin IV 500 MG/100 ML BAG 100 MG IV (13:27)
[2022-05-27 13:32] LABS: Anion Gap 6 (5-15); BUN 50 mg/dL (7-18); BUN/Creat Ratio 41.7 RATIO (10-20); Calcium,Total 9.5 mg/dL (8.5-10.1); Chloride 105 mmol/L (98-107); EST Glomerular Filtration Rate 46 mL/min (>60); Est Glom Filt Rate - Afr Amer 55 mL/min (>60); Glucose 116 mg/dL (74-106); Potassium 4.3 mmol/L (3.5-5.1); Sodium Level 138 mmol/L (136-145)
[2022-05-27 15:31] VITALS: PULSE 78; RESP 17; O2SAT 100
== END 2022-05-27 15:32 | disposition home or self-care (01) ==
PROVIDERS: Emergency Provider Emergency Medicine; PCP Family Medicine; Visit Provider Emergency Medicine
DX: L03.115 Cellulitis of right lower limb (principal); I11.0 Hypertensive heart disease with heart failure; I50.9 Heart failure, unspecified; R50.9 Fever, unspecified; Z79.82 Long term (current) use of aspirin; Z79.899 Other long term (current) drug therapy
CPT/HCPCS: 80048; 85025; 87070; 87077; 87186; 87205; 96365; 99284; J7050; A4216

== ENCOUNTER 2022-06-14 09:30 | Outpatient (RCR) | payer MEDICARE, SELFPAY ==
[2022-06-07 09:13] VITALS: BP 139/49; PULSE 73; RESP 20; TEMP 36.4; BMI 25.4
--- NOTE | 2022-06-07 15:49 | PCM.WC.HP ---
History of Present Illness Date of Service: 06/07/22 Chief Complaint: Traumatic wound of the right lower extremity History of Wound: This is an 81-year-old female who presents with an open wound on the pretibial area of the right lower extremity, the result of recent trauma. On May 19, the patient states a log rolled on me. She sustained trauma to the right pretibial area, resulting in an open wound. She presented to the emergency department on May 24, 2022, where she was prescribed Keflex 500 mg p.o. 3 times daily for 7 days. She has also been using Bactroban topically, and Tubigrip's for compression. It is noted that the patient underwent a noninvasive lower extremity arterial study approximately 1 year ago, where arterial perfusion in the right lower extremity was noted to be normal. Patient has multiple pre-existing medical conditions, which are listed below. A wound culture performed on May 27, 2022, was positive for Pseudomonas aeruginosa and Serratia marcescens. As result of these cultures, and according to sensitivity results, the patient was placed on Levaquin, which continues until the current date. The patient is functional for her age, and is said to have a good appetite. [facility] Medical History Bilateral lower extremity edema Broken heart syndrome Cellulitis of right leg Chronic venous insufficiency Congestive heart failure DVT (deep venous thrombosis) Endometrial cancer GI bleed History of breast cancer History of breast cancer History of CVA (cerebrovascular accident) History of deep vein thrombosis History of endometrial cancer History of gastrointestinal bleeding History of myocardial infarction History of stroke Hypertension Kidney disease Kidney stones Laceration without foreign body, right lower leg, sequela Leg wound, right Myocardial infarction Osteoporosis Osteoporosis PVD (peripheral vascular disease) Seizures Stroke/cerebrovascular accident Traumatic hematoma of right lower leg Venous ulcer of right lower extremity with varicose veins Home Medications albuterol sulfate 90 mcg/actuation aerosol inhaler 2 puff inhalation Q4H PRN PRN Shortness Of Breath 03/20/15 [History Last Taken 11/30/20] aspirin 81 mg chewable tablet 81 mg PO QHS heart health/stroke 03/20/15 [History Last Taken 12/01/20] montelukast 10 mg tablet 10 mg PO QHS asthma 03/20/15 [History Last Taken 12/01/20] spironolactone 25 mg tablet 25 mg PO DAILY water pill 03/20/15 [History Last Taken 12/01/20] torsemide 20 mg tablet 10 mg PO DAILY water pill 03/20/15 [History Last Taken 12/01/20] omeprazole 40 mg capsule,delayed release 40 mg PO PRN PRN stomach 06/14/19 [History Last Taken 12/02/20] losartan 25 mg tablet 12.5 - 25 mg PO DAILY BP 12/02/20 [History Last Taken 12/01/20] budesonide-formoterol HFA 160 mcg-4.5 mcg/actuation aerosol inhaler 2 puff inhalation BID breathing 02/25/21 [History Last Taken Unknown] nitrofurantoin macrocrystal 100 mg capsule (Macrodantin) 100 mg PO .PRN #20 caps 08/20/21 [Rx Last Taken Unknown] clopidogrel 75 mg tablet 1 tab PO DAILY 04/09/22 [History Last Taken Unknown] febuxostat 40 mg tablet 1 tab PO DAILY 04/09/22 [History Last Taken Unknown] albuterol sulfate 2.5 mg/3 mL (0.083 %) solution for nebulization 2.5 mg (3 mL) inhalation Q4H PRN #25 vials 04/18/22 [Rx Last Taken Unknown] cephalexin 500 mg capsule 500 mg PO TID #21 CAPSULES 05/24/22 [Rx Last Taken Unknown] Allergy/AdvReac Type Severity Reaction Status Date / Time diazepam [From Valium] Allergy seizures Verified 06/07/22 09:34 diphenhydramine HCl Allergy difficulty Verified 06/07/22 09:34 [From Benadryl] breathing esomeprazole magnesium Allergy chest pain Verified 06/07/22 09:34 [From Nexium] NSAIDS (Non-Steroidal Allergy Other Verified 06/07/22 09:34 Anti-Inflamma pegloticase [From Krystexxa] Allergy Other Verified 06/07/22 09:37 Penicillins Allergy Rash Verified 06/07/22 09:34 pentazocine lactate Allergy quit Verified 06/07/22 09:34 [From Talwin] breathing Sulfa (Sulfonamide Allergy Rash Verified 06/07/22 09:34 Antibiotics) sulfur dioxide Allergy massive Verified 06/07/22 09:34 headaches Family History Mother Cancer stomach throat Thyroid disorder Father Heart disease Surgical History H/O bilateral mastectomy H/O bilateral oophorectomy H/O bilateral oophorectomy H/O dilation and curettage History of bilateral mastectomy History of cholecystectomy History of cholecystectomy History of colon surgery History of colon surgery History of hysterectomy S/P RAFIA (total abdominal hysterectomy) Social History Smoking Status: Never smoker alcohol intake: never substance use type: does not use caffeine: Yes what type of physical activity do you participate in: walking and bicycling frequency: daily seatbelt use: always do you feel safe at home: Yes additional social history: Kade Both are retired Vital Signs Vital Signs Vital Signs: 06/07/22 09:13 Temperature 97.5 F L Temperature Source Temporal Pulse Rate 73 Respiratory Rate 20 H Blood Pressure 139/49 H Blood Pressure Mean 79 Blood Pressure Source Monitor Weight Weight: 134 lb 6.711 oz Body Mass Index (BMI) 25.4 Physical Exam Const alert, oriented x3, no apparent distress, average body habitus and well nourished General Appearance: cooperative, comfortable, well kempt and well developed Orientation / Consciousness: awake, oriented to person, oriented to place and oriented to time HEENT normocephalic, head/scalp atraumatic and hearing grossly normal bilaterally Head and Scalp: normal to inspection, normocephalic and atraumatic External Ear: external ears normal Eyes PERRL and EOMs intact bilaterally General Eye: normal appearance of both eyes Resp normal respiratory effort, normal air movement, no retractions and no use of accessory muscles Effort and Inspection: able to speak in complete sentences Extremity no calf tenderness General Extremity: Negative for clubbing or cyanosis Skin Wound Narrative: Only slight swelling and edema are noted in the patient's right lower extremity. A superficial wound is noted on the right pretibial area. Dimensions are documented elsewhere. There is no obvious sign of infection or cellulitis. There is a moderate amount of bioburden and nonviable tissue present. Neuro oriented x3, CN's II-XII intact bilaterally and moves all extremities Sensorium / Orientation: awake, alert, oriented to person, oriented to place and oriented to time Psych Appearance: grossly normal and appropriate Attitude: calm Activity / Motor Behavior: appropriate eye contact Speech: normal speech Mood & Affect: euthymic mood Thought Process: normal thought process Thought Content: normal thought content Attention / Concentration: attention grossly intact Debridement Note Debridement Note Wound debrided: Right pretibial wound Laterality: Right Type of Debridement: Excisional debridement Anesthesia Used: 5% Lidocaine Gel Depth: Down to and including healthy tissue and in the subcutaneous layer Percentage of wound debrided: 100 Instrument Used: 5mm curette Tissue Removed: Bioburden and nonviable tissue Severity: Fat Layer Exposed Amount of bleeding with debridement: Mild Bleeding Controlled with: Compression and gauze Patient tolerated procedure: Patient tolerated procedure well Post-Debridement Measurements and Additional Note: Post-Debridement Measurements/Treatment - Nurse 1 - General Ulcer Assessment Start: 06/07/22 09:06 Freq: Status: Active Protocol: HAN Activity Type Activity Date Activity User E-sign Co-sign Detail Recorded Client Recorded Date Recorded By Document 06/07/22 09:13 DL [id number] 06/07/22 09:29 DL 06/07/22 09:13 - Today's Visit Information Type of service Initial Visit Arrival Mode Ambulatory Transfer Assistance None Patient Identification Verified (Name & Yes ) Height and Weight Height 5 ft 1 in Weight 134 lb 6.711 oz Weight in Pounds 134.4 lbs Body Mass Index (BMI) 25.4 BMI Classification Overweight BSA - Nigel 1.60 Vital Signs Temperature (97.8 F-99.1 F) 97.5 F L Temperature Source Temporal Pulse Rate (60-100) 73 Pulse Location Monitor Respiratory Rate (12-18) 20 H Respiratory rate source Observation Blood Pressure (90/60-120/80) 139/49 H Blood Pressure Mean 79 Source Monitor History Since Last Visit- (Skip if this is Patient's initial visit) Left Footwear Regular Shoe Right Footwear Regular Shoe Pain Scale: 0-10 Numeric Is Patient Pain Free? Yes Lower Extremity Assessment/ Foot Assessment/ Toe Nail Assessment Left -Posterior Tibial Palpable Yes -Dorsalis Pedis Palpable Yes -Extremity Color Hemosiderin -Hair Growth on Legs No -Hair Growth on Toes No -Temperature of Extremity Warm -Capillary Refill Greater than 3 Seconds -Dependent Rubor No -Blanched when Elevated No -Lipodermatosclerosis No -Other Deformity No -Prior Foot Ulcer No -Charcot Joint No -Prior Amputation No -Thick No -Discolored No -Deformed No -Improper Length & Hygeine Yes Right -Posterior Tibial Palpable Yes -Dorsalis Pedis Palpable Yes -Extremity Color Hyperpigmented -Hair Growth on Legs No -Hair Growth on Toes No -Temperature of Extremity Warm -Capillary Refill Greater than 3 Seconds -Dependent Rubor No -Blanched when Elevated No -Lipodermatosclerosis No -Other Deformity No -Prior Foot Ulcer No -Charcot Joint No -Prior Amputation No -Thick No -Discolored No -Deformed No -Improper Length & Hygeine Yes Neuropathy Assessment Feet - Top Side and Bottom <Entered> (a) Communication Assessment Preferred language [place] Able to Read Yes Able to Write Yes Communication Tools None Right Hearing Abillity Normal Left Hearing Abillity Normal Visual Assistive Devices Glasses Teaching Assessment Preferences Verbal,Written, Demonstration Readiness To Learn Good Willingness to Engage in Self Management Med Activies Readiness to Engage in Self Management Med Activities Anxiety Level Calm Cooperation Cooperative Perception Coherent Interest in Health Problem Asks Questions Education Importance Acknowledges Need Does Patient Smoke tobacco or other No substances Is Patient Diabetic No Functional Assessment Recent Decline in Ability to Perform Denies Any Declines Teaching: Wound Center Discharge Instructions -Person Taught Patient Dressing Your Wound -Person Taught Patient *Welcome to the Wound Center -Person Taught Patient (a) 1 - + WC - Nurse 1 - General Ulcer Measurement Start: 06/07/22 09:06 Freq: Status: Active Protocol: Activity Type Activity Date Activity User E-sign Co-sign Detail Recorded Client Recorded Date Recorded By Document 06/07/22 09:13 [id number] 06/07/22 09:29 DL 06/07/22 09:13 Wound Center Nurse 1 #4 R Holt -Current Size (cm) - Length 4.7 -Current Size (cm) - Width 4.7 -Current Size (cm) - Depth 0.1 -Total Square Cm 22.09 -Photo Taken Yes -Classification - Thickness Full Thickness without Exposed Support Structure -Exudate Amt Medium -Exudate Type Serosanguineous -Wound Margin Distinct, Outline Attached -Granulation Amt Medium (34-66%) -Granulation Quality Red -Necrosis Amt Medium (34-66%) -Necrotic Tissue Type Adherent Slough -Structure Exposed N/A -Texture (Ade-wound Skin Appearance) Localized Edema ,Scarring -Moisture (Ade-wound Skin Appearance) Dry/Scaly -Color (Ade-wound Skin Appearance) Hemosiderin Staining -Temperature (Ade-wound Skin No Abnormality Appearance) (Pt Warm) -Tenderness on Palpation (Ade-wound No Skin Appearance) -Ulcer Cleansing Soap and Water -Foul Odor after Cleansing No -Anesthetic Used 4% Lidocaine Solution ROSS - Nurse 2 - General Ulcer CM Notes Start: 06/07/22 09:06 Freq: Status: Active Protocol: Activity Type Activity Date Activity User E-sign Co-sign Detail Recorded Client Recorded Date Recorded By Document 06/07/22 09:52 MW [id number] 06/07/22 09:57 MW 06/07/22 09:52 Wound Center Nurse 2 -Time 09:52 -Correct Patient Yes -Correct Side, Site, Position Yes -Correct Procedure Yes -Procedure Performed Yes -Type of Procedure Debridement -Clinical Debridement Subcutaneous -Tissue Removed Subcutaneous -Post Debridement (cm) - Length 5.4 -Post Debridement (cm) - Width 4.8 -Post Debridement (cm) - Depth 0.1 -Total Square (Post) (cm) 25.92 -Area of Debridement (cm) - Length 5.4 -Area of Debridement (cm) - Width 4.8 -Total Square (Area) (cm) 25.92 -Tunneling No -Undermining/Tunneling No -Circular Undermining No -Wound/Ulcer Outcome Not Healed -Ulcer Cleansing Rinsed/ Irrigated with Saline -Foul Odor after Cleansing No -Bioengineered Tissue No -Bleeding Controlled with Pressure -Treatment Response Procedure Tolerated Well -Offloading No -Debridement - Subq, 1st 20sq cm Yes -Debridement, SubQ, ea addt'l 20sq cm 1 or part thereof Pain Scale: 0-10 Numeric Is Patient Pain Free? Yes ROSS - Nurse 3 - General Ulcer D/C NN Start: 06/07/22 09:06 Freq: Status: Active Protocol: Activity Type Activity Date Activity User E-sign Co-sign Detail Recorded Client Recorded Date Recorded By Document 06/07/22 10:23 DL [id number] 06/07/22 10:24 DL 06/07/22 10:23 Wound Care Nurse 3 #4 R Holt -Ulcer Cleansing Rinsed/ Irrigated with Saline -Primary Dressing Applied Fibracol Plus 4x4 -Primary Dressing Covered/Secured with Dry Gauze & Roll Gauze, Secured with Tape -Fibracol Plus 4x4 1 Right -Tubular Bandage Single Layer -Size of Tubigrip Used Size D -Size D ($) 1 Treatment Response Procedure Tolerated Well Pain Scale: 0-10 Numeric Is Patient Pain Free? Yes WC - Visit Discharge Discharge Condition Stable Ambulatory Status Ambulatory Transportation Private Auto Assessment/Plan Assessment/Plan (1) Leg wound, right: CODE(S): S81.801A - Unspecified open wound, right lower leg, initial encounter (2) Cellulitis of right leg: CODE(S): L03.115 - Cellulitis of right lower limb (3) Chronic venous insufficiency: CODE(S): I87.2 - Venous insufficiency (chronic) (peripheral) (4) Hypertension: CODE(S): I10 - Essential (primary) hypertension QUALIFIERS: Hypertension type: essential hypertension Qualified Code(s): I10 - Essential (primary) hypertension (5) Congestive heart failure: CODE(S): I50.9 - Heart failure, unspecified QUALIFIERS: Heart failure type: unspecified Heart failure chronicity: chronic Qualified Code(s): I50.9 - Heart failure, unspecified (6) CAD (coronary artery disease): CODE(S): I25.10 - Atherosclerotic heart disease of [place] coronary artery without angina pectoris QUALIFIERS: Coronary Disease-Associated Artery/Lesion type: unspecified vessel or lesion type Associated angina: angina presence unspecified (7) Asthma: CODE(S): J45.909 - Unspecified asthma, uncomplicated QUALIFIERS: Asthma severity: unspecified severity (8) GERD (gastroesophageal reflux disease): CODE(S): K21.9 - Gastro-esophageal reflux disease without esophagitis QUALIFIERS: Esophagitis presence: esophagitis presence not specified Qualified Code(s): K21.9 - Gastro-esophageal reflux disease without esophagitis (9) Stage III chronic kidney disease: CODE(S): N18.3 - Chronic kidney disease, stage 3 (moderate) (10) PVD (peripheral vascular disease): CODE(S): I73.9 - Peripheral vascular disease, unspecified (11) History of deep vein thrombosis: CODE(S): Z86.718 - Personal history of other venous thrombosis and embolism (12) History of endometrial cancer: CODE(S): Z85.42 - Personal history of malignant neoplasm of other parts of uterus (13) History of gastrointestinal bleeding: CODE(S): Z87.19 - Personal history of other diseases of the digestive system (14) History of breast cancer: CODE(S): Z85.3 - Personal history of malignant neoplasm of breast (15) History of CVA (cerebrovascular accident): CODE(S): Z86.73 - Personal history of transient ischemic attack (TIA), and cerebral infarction without residual deficits (16) Osteoporosis: CODE(S): M81.0 - Age-related osteoporosis without current pathological fracture (17) History of myocardial infarction: CODE(S): I25.2 - Old myocardial infarction (18) History of bilateral mastectomy: CODE(S): Z90.13 - Acquired absence of bilateral breasts and nipples (19) H/O bilateral oophorectomy: CODE(S): Z90.722 - Acquired absence of ovaries, bilateral (20) History of cholecystectomy: CODE(S): Z90.49 - Acquired absence of other specified parts of digestive tract (21) History of colon surgery: CODE(S): Z98.890 - Other specified postprocedural states (22) History of hysterectomy: CODE(S): Z90.710 - Acquired absence of both cervix and uterus PLAN: Plan This is an 81-year-old female who is active and functional. She sustained trauma to the right pretibial surface on May 19, 2022. She presents today with a wound and recent cellulitis, with a culture which has been recently positive for Pseudomonas aeruginosa and Serratia marcescens. She is currently in the midst of a prescription for Levaquin, which appears appropriate to the sensitivity results of her recent culture. She has been recently using Bactroban topically and Tubigrip's. We are to implement conservative treatment measures to minimize swelling to the right lower extremity. This is to include leg elevation, with legs elevated to heart level, or higher. This is to be accomplished as much as possible. Prolonged idle sitting has been discouraged. Activity has been encouraged. We are to continue the use of Tubigrip's, of 20 to 30 mmHg compression. We are to implement the use of Fibracol and Adaptic topically, which will be changed on a daily basis. Patient is to continue her prescription for Levaquin. Her appetite is said to be good, and nutritional optimization has been discussed. Total time: 55 minutes
[2022-06-14 09:29] VITALS: BP 135/36; PULSE 74; RESP 18; TEMP 36.1; BMI 25.4
--- NOTE | 2022-06-14 12:29 | HP.PCM_ITS ---
History of Present Illness Date of Service: 06/14/22 Chief Complaint: Traumatic wound of the right lower extremity History of Wound: This is an 81-year-old female who presented with an open wound on the pretibial area of the right lower extremity, the result of recent trauma. On May 19, the patient stated a log rolled on me. She sustained trauma to the right pretibial area, resulting in an open wound. She presented to the emergency department on May 24, 2022, where she was prescribed Keflex 500 mg p.o. 3 times daily for 7 days. She has also been using Bactroban topically, and Tubigrip's for compression. It is noted that the patient underwent a noninvasive lower extremity arterial study approximately 1 year ago, where arterial perfusion in the right lower extremity was noted to be normal. Patient has multiple pre-existing medical conditions, which are listed below. A wound culture performed on May 27, 2022, was positive for Pseudomonas aeruginosa and Serratia marcescens. As result of these cultures, and according to sensitivity results, the patient was placed on Levaquin, which continued until the patient's initial appointment. The patient is functional for her age, and is said to have a good appetite. [facility] Medical History (Updated 06/14/22 @ 12:[address] Kevin Garcia MD) Bilateral lower extremity edema Broken heart syndrome Cellulitis of right leg Chronic venous insufficiency Congestive heart failure DVT (deep venous thrombosis) Endometrial cancer GI bleed Gout History of breast cancer History of breast cancer History of CVA (cerebrovascular accident) History of deep vein thrombosis History of endometrial cancer History of gastrointestinal bleeding History of myocardial infarction History of stroke Hypertension Kidney disease Kidney stones Laceration without foreign body, right lower leg, sequela Leg wound, right Myocardial infarction Osteoporosis Osteoporosis Puncture wound without foreign body, right lower leg, subsequent encounter PVD (peripheral vascular disease) Seizures Stroke/cerebrovascular accident Traumatic hematoma of right lower leg Venous ulcer of right lower extremity with varicose veins Home Medications albuterol sulfate 90 mcg/actuation aerosol inhaler 2 puff inhalation Q4H PRN PRN Shortness Of Breath 03/20/15 [History Last Taken 11/30/20] aspirin 81 mg chewable tablet 81 mg PO QHS heart health/stroke 03/20/15 [History Last Taken 12/01/20] montelukast 10 mg tablet 10 mg PO QHS asthma 03/20/15 [History Last Taken 12/01/20] spironolactone 25 mg tablet 25 mg PO DAILY water pill 03/20/15 [History Last Taken 12/01/20] torsemide 20 mg tablet 10 mg PO DAILY water pill 03/20/15 [History Last Taken 12/01/20] omeprazole 40 mg capsule,delayed release 40 mg PO PRN PRN stomach 06/14/19 [History Last Taken 12/02/20] losartan 25 mg tablet 12.5 - 25 mg PO DAILY BP 12/02/20 [History Last Taken 12/01/20] budesonide-formoterol HFA 160 mcg-4.5 mcg/actuation aerosol inhaler 2 puff inhalation BID breathing 02/25/21 [History Last Taken Unknown] nitrofurantoin macrocrystal 100 mg capsule (Macrodantin) 100 mg PO .PRN #20 caps 08/20/21 [Rx Last Taken Unknown] clopidogrel 75 mg tablet 1 tab PO DAILY 04/09/22 [History Last Taken Unknown] febuxostat 40 mg tablet 1 tab PO DAILY 04/09/22 [History Last Taken Unknown] albuterol sulfate 2.5 mg/3 mL (0.083 %) solution for nebulization 2.5 mg (3 mL) inhalation Q4H PRN #25 vials 04/18/22 [Rx Last Taken Unknown] cephalexin 500 mg capsule 500 mg PO TID #21 CAPSULES 05/24/22 [Rx Last Taken Unknown] Allergy/AdvReac Type Severity Reaction Status Date / Time diazepam [From Valium] Allergy seizures Verified 06/07/22 09:34 diphenhydramine HCl Allergy difficulty Verified 06/07/22 09:34 [From Benadryl] breathing esomeprazole magnesium Allergy chest pain Verified 06/07/22 09:34 [From Nexium] NSAIDS (Non-Steroidal Allergy Other Verified 06/07/22 09:34 Anti-Inflamma pegloticase [From Krystexxa] Allergy Other Verified 06/07/22 09:37 Penicillins Allergy Rash Verified 06/07/22 09:34 pentazocine lactate Allergy quit Verified 06/07/22 09:34 [From Talwin] breathing Sulfa (Sulfonamide Allergy Rash Verified 06/07/22 09:34 Antibiotics) sulfur dioxide Allergy massive Verified 06/07/22 09:34 headaches Family History Mother Cancer stomach throat Thyroid disorder Father Heart disease Surgical History H/O bilateral mastectomy H/O bilateral oophorectomy H/O bilateral oophorectomy H/O dilation and curettage History of bilateral mastectomy History of cholecystectomy History of cholecystectomy History of colon surgery History of colon surgery History of hysterectomy S/P RAFIA (total abdominal hysterectomy) Social History Smoking Status: Never smoker alcohol intake: never substance use type: does not use caffeine: Yes what type of physical activity do you participate in: walking and bicycling frequency: daily seatbelt use: always do you feel safe at home: Yes additional social history: Kade Both are retired Vital Signs Vital Signs Vital Signs: 06/14/22 09:29 Temperature 97 F L Temperature Source Temporal Pulse Rate 74 Respiratory Rate 18 Blood Pressure 135/36 H Blood Pressure Mean 69 Blood Pressure Source Monitor Weight Weight: 134 lb 6.711 oz Body Mass Index (BMI) 25.4 Physical Exam Const alert, oriented x3, no apparent distress, average body habitus and well nourished General Appearance: cooperative, comfortable, well kempt and well developed Orientation / Consciousness: awake, oriented to person, oriented to place and oriented to time HEENT normocephalic, head/scalp atraumatic and hearing grossly normal bilaterally Head and Scalp: normal to inspection, normocephalic and atraumatic External Ear: external ears normal Eyes PERRL and EOMs intact bilaterally General Eye: normal appearance of both eyes Resp normal respiratory effort, normal air movement, no retractions and no use of accessory muscles Effort and Inspection: able to speak in complete sentences Extremity no calf tenderness General Extremity: Negative for clubbing or cyanosis Skin Wound Narrative: Only slight swelling and edema are noted in the patient's right lower extremity. A superficial wound is noted on the right pretibial area. Dimensions are documented elsewhere. There is no obvious sign of infection or cellulitis. There is a moderate amount of bioburden and nonviable tissue present. Neuro oriented x3, CN's II-XII intact bilaterally and moves all extremities Sensorium / Orientation: awake, alert, oriented to person, oriented to place and oriented to time Psych Appearance: grossly normal and appropriate Attitude: calm Activity / Motor Behavior: appropriate eye contact Speech: normal speech Mood & Affect: euthymic mood Thought Process: normal thought process Thought Content: normal thought content Attention / Concentration: attention grossly intact Debridement Note Debridement Note Wound debrided: Right pretibial area Laterality: Right Type of Debridement: Excisional debridement Anesthesia Used: 5% Lidocaine Gel Depth: Down to and including healthy tissue and in the subcutaneous layer Percentage of wound debrided: 100 Instrument Used: 5mm curette Tissue Removed: Bioburden, fibrotic and nonviable tissue Severity: Fat Layer Exposed Amount of bleeding with debridement: Mild Bleeding Controlled with: Compression and gauze Patient tolerated procedure: Patient tolerated procedure well Post-Debridement Measurements and Additional Note: Post-Debridement Measurements/Treatment - Nurse 1 - General Ulcer Assessment Start: 06/07/22 09:06 Freq: Status: Active Protocol: HAN Activity Type Activity Date Activity User E-sign Co-sign Detail Recorded Client Recorded Date Recorded By Document 06/07/22 09:13 DL [id number] 06/07/22 09:29 DL Document 06/14/22 09:29 DL [id number] 06/14/22 09:35 DL 06/07/22 06/14/22 09:13 09:29 WC - Today's Visit Information Type of service Initial Visit Follow-up Visit (Physician/SOLE FILLER ) Arrival Mode Ambulatory Ambulatory Transfer Assistance None None Patient Identification Verified (Name & Yes Yes ) Patient Requires Transmission-Based No Precautions Height and Weight Height 5 ft 1 in Weight 134 lb 6.711 oz Weight in Pounds 134.4 lbs Body Mass Index (BMI) 25.4 25.4 BMI Classification Overweight Overweight BSA - Nigel 1.60 Vital Signs Temperature (97.8 F-99.1 F) 97.5 F L 97 F L Temperature Source Temporal Temporal Pulse Rate (60-100) 73 74 Pulse Location Monitor Monitor Respiratory Rate (12-18) 20 H 18 Respiratory rate source Observation Observation Blood Pressure (90/60-120/80) 139/49 H 135/36 H Blood Pressure Mean 79 69 Source Monitor Monitor History Since Last Visit- (Skip if this is Patient's initial visit) Have you changed medications since your No last visit? Any new allergies or adverse reactions No Had a fall/change in ADL's that may No increase risk of falls Signs or symptoms of abuse and/or No neglect since last visit Have you been in the hospital since your No last visit? Has dressing in place as prescribed Yes Has compression in place as prescribed Yes Has offloadiing in place as prescribed N/A Experienced any changes in pain level or No management Left Footwear Regular Shoe Right Footwear Regular Shoe Pain Scale: 0-10 Numeric Is Patient Pain Free? Yes Yes Lower Extremity Assessment/ Foot Assessment/ Toe Nail Assessment Left -Posterior Tibial Palpable Yes -Dorsalis Pedis Palpable Yes -Extremity Color Hemosiderin -Hair Growth on Legs No -Hair Growth on Toes No -Temperature of Extremity Warm -Capillary Refill Greater than 3 Seconds -Dependent Rubor No -Blanched when Elevated No -Lipodermatosclerosis No -Other Deformity No -Prior Foot Ulcer No -Charcot Joint No -Prior Amputation No -Thick No -Discolored No -Deformed No -Improper Length & Hygeine Yes Right -Posterior Tibial Palpable Yes -Dorsalis Pedis Palpable Yes -Extremity Color Hyperpigmented -Hair Growth on Legs No -Hair Growth on Toes No -Temperature of Extremity Warm -Capillary Refill Greater than 3 Seconds -Dependent Rubor No -Blanched when Elevated No -Lipodermatosclerosis No -Other Deformity No -Prior Foot Ulcer No -Charcot Joint No -Prior Amputation No -Thick No -Discolored No -Deformed No -Improper Length & Hygeine Yes Neuropathy Assessment Feet - Top Side and Bottom <Entered> (a) Communication Assessment Preferred language [place] Able to Read Yes Able to Write Yes Communication Tools None Right Hearing Abillity Normal Left Hearing Abillity Normal Visual Assistive Devices Glasses Teaching Assessment Preferences Verbal,Written, Demonstration Readiness To Learn Good Willingness to Engage in Self Management Med Activies Readiness to Engage in Self Management Med Activities Anxiety Level Calm Cooperation Cooperative Perception Coherent Interest in Health Problem Asks Questions Education Importance Acknowledges Need Does Patient Smoke tobacco or other No substances Is Patient Diabetic No Functional Assessment Recent Decline in Ability to Perform Denies Any Declines Teaching: Wound Center Discharge Instructions -Person Taught Patient Dressing Your Wound -Person Taught Patient *Welcome to the Wound Center -Person Taught Patient (a) 1 - + WC - Nurse 1 - General Ulcer Measurement Start: 06/07/22 09:06 Freq: Status: Active Protocol: Activity Type Activity Date Activity User E-sign Co-sign Detail Recorded Client Recorded Date Recorded By Document 06/07/22 09:13 DL [id number] 06/07/22 09:29 DL Document 06/14/22 09:29 DL [id number] 06/14/22 09:35 DL 06/07/22 06/14/22 09:13 09:29 Wound Center Nurse 1 #4 R Holt -Current Size (cm) - Length 4.7 3.7 -Current Size (cm) - Width 4.7 2 -Current Size (cm) - Depth 0.1 0.1 -Total Square Cm 22.09 7.4 -Photo Taken Yes Yes -Classification - Thickness Full Thickness without Exposed Support Structure -Exudate Amt Medium Medium -Exudate Type Serosanguineous Serosanguineous -Wound Margin Distinct, Distinct, Outline Outline Attached Attached -Granulation Amt Medium (34-66%) Medium (34-66%) -Granulation Quality Red Red -Necrosis Amt Medium (34-66%) Medium (34-66%) -Necrotic Tissue Type Adherent Slough Adherent Slough -Structure Exposed N/A N/A -Texture (Ade-wound Skin Appearance) Localized Edema Scarring ,Scarring -Moisture (Ade-wound Skin Appearance) Dry/Scaly No Abnormality -Color (Ade-wound Skin Appearance) Hemosiderin Hemosiderin Staining Staining -Temperature (Ade-wound Skin No Abnormality No Abnormality Appearance) (Pt Warm) (Pt Warm) -Tenderness on Palpation (Ade-wound No No Skin Appearance) -Ulcer Cleansing Soap and Water Rinsed/ Irrigated with Saline -Foul Odor after Cleansing No No -Anesthetic Used 4% Lidocaine 5% Lidocaine Solution Gel Right Calf (cm) 35.3 Right Ankle (cm) 22.3 WC - Nurse 2 - General Ulcer CM Notes Start: 06/07/22 09:06 Freq: Status: Active Protocol: Activity Type Activity Date Activity User E-sign Co-sign Detail Recorded Client Recorded Date Recorded By Document 06/07/22 09:52 MW [id number] 06/07/22 09:57 MW Document 06/14/22 10:15 PL [id number] 06/14/22 10:16 PL 06/07/22 06/14/22 09:52 10:15 Wound Center Nurse 2 #4 R Holt -Time 09:52 09:57 -Correct Patient Yes Yes -Correct Side, Site, Position Yes Yes -Correct Procedure Yes Yes -Procedure Performed Yes Yes -Type of Procedure Debridement Incision & Drainage -Clinical Debridement Subcutaneous Subcutaneous -Tissue Removed Subcutaneous Subcutaneous -Post Debridement (cm) - Length 5.4 3.7 -Post Debridement (cm) - Width 4.8 2.0 -Post Debridement (cm) - Depth 0.1 0.1 -Total Square (Post) (cm) 25.92 7.40 -Area of Debridement (cm) - Length 5.4 3.7 -Area of Debridement (cm) - Width 4.8 2.0 -Total Square (Area) (cm) 25.92 7.40 -Tunneling No No -Undermining/Tunneling No No -Circular Undermining No No -Wound/Ulcer Outcome Not Healed Not Healed -Ulcer Cleansing Rinsed/ Rinsed/ Irrigated with Irrigated with Saline Saline -Foul Odor after Cleansing No No -Bioengineered Tissue No No -Bleeding Controlled with Pressure Pressure -Treatment Response Procedure Procedure Tolerated Well Tolerated Well -Offloading No -Debridement - Subq, 1st 20sq cm Yes Yes -Debridement, SubQ, ea addt'l 20sq cm 1 or part thereof Pain Scale: 0-10 Numeric Is Patient Pain Free? Yes Yes WC - Nurse 3 - General Ulcer D/C NN Start: 06/07/22 09:06 Freq: Status: Active Protocol: Activity Type Activity Date Activity User E-sign Co-sign Detail Recorded Client Recorded Date Recorded By Document 06/07/22 10:23 DL [id number] 06/07/22 10:24 DL Document 06/14/22 10:24 MW [id number] 06/14/22 10:25 MW 06/07/22 06/14/22 10:23 10:24 Wound Care Nurse 3 #4 R Holt -Ulcer Cleansing Rinsed/ Rinsed/ Irrigated with Irrigated with Saline Saline -Foul Odor after Cleansing No -Negative Pressure Wound Therapy N/A -Primary Dressing Applied Fibracol Plus Hysept ($) 4x4 -Primary Dressing Covered/Secured with Dry Gauze & Dry Gauze & Roll Gauze, Roll Gauze, Secured with Secured with Tape Tape -Fibracol Plus 4x4 1 Right -Lotion applied to leg before No compression wrap -Tubular Bandage Single Layer Single Layer -Size of Tubigrip Used Size D Size E -Size D ($) 1 -Size E ($) 2 Treatment Response Procedure Procedure Tolerated Well Tolerated Well Pain Scale: 0-10 Numeric Is Patient Pain Free? Yes Yes Teaching: Wound Center Dressing Your Wound -Person Taught Patient -Teaching Method Discussion, Demonstration -Response to teaching Verbalize understanding WC - Visit Discharge Discharge Condition Stable Stable Ambulatory Status Ambulatory Ambulatory Transportation Private Auto Private Auto Accompanied by SELF Medication Reconcilliation completed & No provided to patient/care provider Clinical Summary of Care Provided Yes Assessment/Plan Assessment/Plan (1) Leg wound, right: CODE(S): S81.801A - Unspecified open wound, right lower leg, initial encounter QUALIFIERS: Encounter type: subsequent encounter Qualified Cod e(s): S81.801D - Unspecified open wound, right lower leg, subsequent encounter (2) Puncture wound without foreign body, right lower leg, subsequent encounter: CODE(S): S81.831D - Puncture wound without foreign body, right lower leg, subsequent encounter (3) Cellulitis of right leg: CODE(S): L03.115 - Cellulitis of right lower limb (4) Chronic venous insufficiency: CODE(S): I87.2 - Venous insufficiency (chronic) (peripheral) (5) Hypertension: CODE(S): I10 - Essential (primary) hypertension QUALIFIERS: Hypertension type: essential hypertension Qualified Code(s): I10 - Essential (primary) hypertension (6) Congestive heart failure: CODE(S): I50.9 - Heart failure, unspecified QUALIFIERS: Heart failure type: unspecified Heart failure chronicity: chronic Qualified Code(s): I50.9 - Heart failure, unspecified (7) CAD (coronary artery disease): CODE(S): I25.10 - Atherosclerotic heart disease of [place] coronary artery without angina pectoris QUALIFIERS: Coronary Disease-Associated Artery/Lesion type: un specified vessel or lesion type Associated angina: angina presence unspecified (8) Asthma: CODE(S): J45.909 - Unspecified asthma, uncomplicated QUALIFIERS: Asthma severity: unspecified severity (9) GERD (gastroesophageal reflux disease): CODE(S): K21.9 - Gastro-esophageal reflux disease without esophagitis QUALIFIERS: Esophagitis presence: esophagitis presence not specified Qualified Code(s): K21.9 - Gastro-esophageal reflux disease without esophagitis (10) Stage III chronic kidney disease: CODE(S): N18.3 - Chronic kidney disease, stage 3 (moderate) (11) PVD (peripheral vascular disease): CODE(S): I73.9 - Peripheral vascular disease, unspecified (12) History of deep vein thrombosis: CODE(S): Z86.718 - Personal history of other venous thrombosis and embolism (13) History of endometrial cancer: CODE(S): Z85.42 - Personal history of malignant neoplasm of other parts of uterus (14) History of gastrointestinal bleeding: CODE(S): Z87.19 - Personal history of other diseases of the digestive system (15) History of breast cancer: CODE(S): Z85.3 - Personal history of malignant neoplasm of breast (16) History of CVA (cerebrovascular accident): CODE(S): Z86.73 - Personal history of transient ischemic attack (TIA), and cerebral infarction without residual deficits (17) Osteoporosis: CODE(S): M81.0 - Age-related osteoporosis without current pathological fracture (18) History of myocardial infarction: CODE(S): I25.2 - Old myocardial infarction (19) History of bilateral mastectomy: CODE(S): Z90.13 - Acquired absence of bilateral breasts and nipples (20) H/O bilateral oophorectomy: CODE(S): Z90.722 - Acquired absence of ovaries, bilateral (21) History of cholecystectomy: CODE(S): Z90.49 - Acquired absence of other specified parts of digestive tract (22) History of colon surgery: CODE(S): Z98.890 - Other specified postprocedural states (23) History of hysterectomy: CODE(S): Z90.710 - Acquired absence of both cervix and uterus (24) Gout: CODE(S): M10.9 - Gout, unspecified PLAN: Plan This is an 81-year-old female who is active and functional. She sustained trauma to the right pretibial surface on May 19, 2022. She presented with a wound and recent cellulitis, with a culture which has been recently positive for Pseudomonas aeruginosa and Serratia marcescens. She was currently in the midst of a prescription for Levaquin, which appeared appropriate to the sensitivity results of her recent culture. The Levaquin prescription has been completed. She had been recently using Bactroban topically and Tubigrip's. We have implemented conservative treatment measures to minimize swelling to the right lower extremity. This includes leg elevation, with legs elevated to heart level, or higher. This is to be accomplished as much as possible. Prolonged idle sitting has been discouraged. Activity has been encouraged. We are to continue the use of Tubigrip's, of 20 to 30 mmHg compression. We are to implement the use of Dakin's-moistened gauze topically, which will be applied on a daily basis. The patient has been instructed in appropriate means of application. The Dakin's is to be implemented due to the residual fibrotic and nonviable tissue at the surface of the wound. Her appetite is said to be good, and nutritional optimization has been discussed. Total time: 29 minutes
== END 2022-06-17 23:59 | disposition home or self-care (01) ==
LOC: WC 09:30
PROVIDERS: PCP Family Medicine; Visit Provider Surgery
DX: S81.831A Puncture wound without foreign body, right lower leg, initial encounter (principal); I50.9 Heart failure, unspecified; I13.0 Hypertensive heart and chronic kidney disease with heart failure and stage 1 through stage 4 chronic kidney disease, or unspecified chronic kidney disease; I73.9 Peripheral vascular disease, unspecified; N18.30 Chronic kidney disease, stage 3 unspecified; I87.2 Venous insufficiency (chronic) (peripheral); L03.115 Cellulitis of right lower limb; J45.909 Unspecified asthma, uncomplicated; Z79.02 Long term (current) use of antithrombotics/antiplatelets; K21.9 Gastro-esophageal reflux disease without esophagitis; Z79.82 Long term (current) use of aspirin; M10.9 Gout, unspecified; I25.10 Atherosclerotic heart disease of native coronary artery without angina pectoris; Z79.899 Other long term (current) drug therapy; B96.5 Pseudomonas (aeruginosa) (mallei) (pseudomallei) as the cause of diseases classified elsewhere; W22.8XXA Striking against or struck by other objects, initial encounter
CPT/HCPCS: 11042; 11045; 99213; G0463

== ENCOUNTER 2022-07-12 09:45 | Outpatient (RCR) | payer MEDICARE, SELFPAY ==
[2022-06-18 01:44] VITALS: BP 135/36; PULSE 74; RESP 18; TEMP 36.1; BMI 25.4
[2022-06-21 10:24] VITALS: BP 149/69; PULSE 69; TEMP 35.7; BMI 25.4
--- NOTE | 2022-06-21 13:08 | HP.PCM_ITS ---
History of Present Illness Date of Service: 06/21/22 Chief Complaint: Traumatic wound of the right lower extremity History of Wound: This is an 81-year-old female who presented with an open wound on the pretibial area of the right lower extremity, the result of recent trauma. On May 19, the patient stated a log rolled on me. She sustained trauma to the right pretibial area, resulting in an open wound. She presented to the emergency department on May 24, 2022, where she was prescribed Keflex 500 mg p.o. 3 times daily for 7 days. She has also been using Bactroban topically, and Tubigrip's for compression. It is noted that the patient underwent a noninvasive lower extremity arterial study approximately 1 year ago, where arterial perfusion in the right lower extremity was noted to be normal. Patient has multiple pre-existing medical conditions, which are listed below. A wound culture performed on May 27, 2022, was positive for Pseudomonas aeruginosa and Serratia marcescens. As result of these cultures, and according to sensitivity results, the patient was placed on Levaquin, which continued until the patient's initial appointment. The patient is functional for her age, and is said to have a good appetite. [facility] Medical History Bilateral lower extremity edema Broken heart syndrome Cellulitis of right leg Chronic venous insufficiency Congestive heart failure DVT (deep venous thrombosis) Endometrial cancer GI bleed Gout History of breast cancer History of breast cancer History of CVA (cerebrovascular accident) History of deep vein thrombosis History of endometrial cancer History of gastrointestinal bleeding History of myocardial infarction History of stroke Hypertension Kidney disease Kidney stones Laceration without foreign body, right lower leg, sequela Leg wound, right Myocardial infarction Osteoporosis Osteoporosis Puncture wound without foreign body, right lower leg, subsequent encounter PVD (peripheral vascular disease) Seizures Stroke/cerebrovascular accident Traumatic hematoma of right lower leg Venous ulcer of right lower extremity with varicose veins Home Medications albuterol sulfate 90 mcg/actuation aerosol inhaler 2 puff inhalation Q4H PRN PRN Shortness Of Breath 03/20/15 [History Last Taken 11/30/20] aspirin 81 mg chewable tablet 81 mg PO QHS heart health/stroke 03/20/15 [History Last Taken 12/01/20] montelukast 10 mg tablet 10 mg PO QHS asthma 03/20/15 [History Last Taken 12/01/20] spironolactone 25 mg tablet 25 mg PO DAILY water pill 03/20/15 [History Last Taken 12/01/20] torsemide 20 mg tablet 10 mg PO DAILY water pill 03/20/15 [History Last Taken 12/01/20] omeprazole 40 mg capsule,delayed release 40 mg PO PRN PRN stomach 06/14/19 [History Last Taken 12/02/20] losartan 25 mg tablet 12.5 - 25 mg PO DAILY BP 12/02/20 [History Last Taken 12/01/20] budesonide-formoterol HFA 160 mcg-4.5 mcg/actuation aerosol inhaler 2 puff inhalation BID breathing 02/25/21 [History Last Taken Unknown] nitrofurantoin macrocrystal 100 mg capsule (Macrodantin) 100 mg PO .PRN #20 caps 08/20/21 [Rx Last Taken Unknown] clopidogrel 75 mg tablet 1 tab PO DAILY 04/09/22 [History Last Taken Unknown] febuxostat 40 mg tablet 1 tab PO DAILY 04/09/22 [History Last Taken Unknown] albuterol sulfate 2.5 mg/3 mL (0.083 %) solution for nebulization 2.5 mg (3 mL) inhalation Q4H PRN #25 vials 04/18/22 [Rx Last Taken Unknown] cephalexin 500 mg capsule 500 mg PO TID #21 CAPSULES 05/24/22 [Rx Last Taken Unknown] Allergy/AdvReac Type Severity Reaction Status Date / Time diazepam [From Valium] Allergy seizures Verified 06/07/22 09:34 diphenhydramine HCl Allergy difficulty Verified 06/07/22 09:34 [From Benadryl] breathing esomeprazole magnesium Allergy chest pain Verified 06/07/22 09:34 [From Nexium] NSAIDS (Non-Steroidal Allergy Other Verified 06/07/22 09:34 Anti-Inflamma pegloticase [From Krystexxa] Allergy Other Verified 06/07/22 09:37 Penicillins Allergy Rash Verified 06/07/22 09:34 pentazocine lactate Allergy quit Verified 06/07/22 09:34 [From Talwin] breathing Sulfa (Sulfonamide Allergy Rash Verified 06/07/22 09:34 Antibiotics) sulfur dioxide Allergy massive Verified 06/07/22 09:34 headaches Family History Mother Cancer stomach throat Thyroid disorder Father Heart disease Surgical History H/O bilateral mastectomy H/O bilateral oophorectomy H/O bilateral oophorectomy H/O dilation and curettage History of bilateral mastectomy History of cholecystectomy History of cholecystectomy History of colon surgery History of colon surgery History of hysterectomy S/P RAFIA (total abdominal hysterectomy) Social History Smoking Status: Never smoker alcohol intake: never substance use type: does not use caffeine: Yes what type of physical activity do you participate in: walking and bicycling frequency: daily seatbelt use: always do you feel safe at home: Yes additional social history: Russell- Both are retired Vital Signs Vital Signs Vital Signs: 06/21/22 10:24 Temperature 96.2 F L Temperature Source Temporal Pulse Rate 69 Blood Pressure 149/69 H Blood Pressure Mean 95 Blood Pressure Source Monitor Weight Weight: 134 lb 6.711 oz Body Mass Index (BMI) 25.4 Physical Exam Const alert, oriented x3, no apparent distress, average body habitus and well nourished General Appearance: cooperative, comfortable, well kempt and well developed Orientation / Consciousness: awake, oriented to person, oriented to place and oriented to time HEENT normocephalic, head/scalp atraumatic and hearing grossly normal bilaterally Head and Scalp: normal to inspection, normocephalic and atraumatic External Ear: external ears normal Eyes PERRL and EOMs intact bilaterally General Eye: normal appearance of both eyes Resp normal respiratory effort, normal air movement, no retractions and no use of accessory muscles Effort and Inspection: able to speak in complete sentences Extremity no calf tenderness General Extremity: Negative for clubbing or cyanosis Skin Wound Narrative: Only slight swelling and edema are noted in the patient's right lower extremity. A superficial wound is noted on the right pretibial area. Dimensions are documented elsewhere. There is no obvious sign of infection or cellulitis. There is a moderate amount of bioburden and nonviable tissue present. Neuro oriented x3, CN's II-XII intact bilaterally and moves all extremities Sensorium / Orientation: awake, alert, oriented to person, oriented to place and oriented to time Psych Appearance: grossly normal and appropriate Attitude: calm Activity / Motor Behavior: appropriate eye contact Speech: normal speech Mood & Affect: euthymic mood Thought Process: normal thought process Thought Content: normal thought content Attention / Concentration: attention grossly intact Debridement Note Debridement Note Wound debrided: Right pretibial wound Laterality: Right Type of Debridement: Excisional debridement Anesthesia Used: 5% Lidocaine Gel and Cetacaine Depth: Down to and including healthy tissue and in the subcutaneous layer Percentage of wound debrided: 100 Instrument Used: 5mm curette Tissue Removed: Bioburden Severity: Fat Layer Exposed Amount of bleeding with debridement: Mild Bleeding Controlled with: Compression and gauze Patient tolerated procedure: Patient tolerated procedure well Post-Debridement Measurements and Additional Note: Post-Debridement Measurements/Treatment - Nurse 1 - General Ulcer Assessment Start: 06/21/22 10:24 Freq: Status: Active Protocol: HAN Activity Type Activity Date Activity User E-sign Co-sign Detail Recorded Client Recorded Date Recorded By Document 06/21/22 10:24 ALLAN [id number] 06/21/22 10:27 ALLAN 06/21/22 10:24 - Today's Visit Information Type of service Follow-up Visit (Physician/VA[facility]IER ) Arrival Mode Ambulatory Patient Identification Verified (Name & Yes ) Patient Requires Transmission-Based No Precautions Safety Precautions NA Height and Weight Body Mass Index (BMI) 25.4 BMI Classification Overweight Vital Signs Temperature (97.8 F-99.1 F) 96.2 F L Temperature Source Temporal Pulse Rate (60-100) 69 Blood Pressure (90/60-120/80) 149/69 H Blood Pressure Mean 95 Source Monitor History Since Last Visit- (Skip if this is Patient's initial visit) Have you changed medications since your No last visit? Any new allergies or adverse reactions No Had a fall/change in ADL's that may No increase risk of falls Signs or symptoms of abuse and/or No neglect since last visit Have you been in the hospital since your No last visit? Has dressing in place as prescribed Yes Has compression in place as prescribed Yes Has offloadiing in place as prescribed N/A Experienced any changes in pain level or No management Left Footwear Regular Shoe Right Footwear Regular Shoe Pain Scale: 0-10 Numeric Is Patient Pain Free? Yes - Nurse 1 - General Ulcer Measurement Start: 06/21/22 10:24 Freq: Status: Active Protocol: Activity Type Activity Date Activity User E-sign Co-sign Detail Recorded Client Recorded Date Recorded By Document 06/21/22 10:24 AK [id number] 06/21/22 10:27 AK 06/21/22 10:24 Wound Center Nurse 1 #4 R Holt -Combined with other wound No -Current Size (cm) - Length 3.5 -Current Size (cm) - Width 3 -Current Size (cm) - Depth 0.1 -Total Square Cm 10.5 -Photo Taken No -Tunneling No -Undermining/Tunneling No -Circular Undermining No -Change in Wound Grade/Stage No -Exudate Amt Small -Exudate Type Serosanguineous -Wound Margin Distinct, Outline Attached -Granulation Amt None Present (0 %) -Granulation Quality N/A -Slough/Fibrin Yes -Necrosis Amt Small (1-33%) -Structure Exposed N/A -Texture (Ade-wound Skin Appearance) No Abnormality, Assessed -Moisture (Ade-wound Skin Appearance) No Abnormality, Assessed -Color (Ade-wound Skin Appearance) No Abnormality, Assessed -Temperature (Ade-wound Skin No Abnormality Appearance) (Pt Warm) -Tenderness on Palpation (Ade-wound No Skin Appearance) -Ulcer Cleansing Soap and Water -Foul Odor after Cleansing No -Anesthetic Used 4% Lidocaine Solution Lower Limb Edema Present No Right Calf (cm) 36.2 Right Ankle (cm) 22.5 WC - Nurse 2 - General Ulcer CM Notes Start: 06/21/22 10:24 Freq: Status: Active Protocol: Activity Type Activity Date Activity User E-sign Co-sign Detail Recorded Client Recorded Date Recorded By Document 06/21/22 11:26 PL [id number] 06/21/22 11:27 PL 06/21/22 11:26 Wound Center Nurse 2 #4 R Holt -Time 09:59 -Correct Patient Yes -Correct Side, Site, Position Yes -Correct Procedure Yes -Procedure Performed Yes -Type of Procedure Debridement -Clinical Debridement Subcutaneous -Tissue Removed Subcutaneous -Post Debridement (cm) - Length 3.5 -Post Debridement (cm) - Width 2.0 -Post Debridement (cm) - Depth 0.1 -Total Square (Post) (cm) 7.00 -Area of Debridement (cm) - Length 3.5 -Area of Debridement (cm) - Width 2.0 -Total Square (Area) (cm) 7.00 -Tunneling No -Undermining/Tunneling No -Circular Undermining No -Wound/Ulcer Outcome Not Healed -Ulcer Cleansing Rinsed/ Irrigated with Saline -Foul Odor after Cleansing No -Bioengineered Tissue No -Bleeding Controlled with Pressure -Treatment Response Procedure Tolerated Well -Debridement - Subq, 1st 20sq cm Yes Pain Scale: 0-10 Numeric Is Patient Pain Free? Yes WC - Nurse 3 - General Ulcer D/C NN Start: 06/21/22 10:24 Freq: Status: Active Protocol: Activity Type Activity Date Activity User E-sign Co-sign Detail Recorded Client Recorded Date Recorded By Document 06/21/22 10:24 ALLAN [id number] 06/21/22 10:27 ALLAN 06/21/22 10:24 Vital Signs Temperature (97.8 F-99.1 F) 96.2 F L Temperature Source Temporal Pulse Rate (60-100) 69 Blood Pressure (90/60-120/80) 149/69 H Blood Pressure Mean 95 Source Monitor Pain Scale: 0-10 Numeric Is Patient Pain Free? Yes Wound Care Nurse 3 #4 R Holt -Ulcer Cleansing Rinsed/ Irrigated with Saline -Foul Odor after Cleansing No -Negative Pressure Wound Therapy N/A -Primary Dressing Applied Promogran -Primary Dressing Covered/Secured with Dry Gauze & Roll Gauze, Secured with Tape -Promogran 2 Right -Tubular Bandage Single Layer -Size of Tubigrip Used Size D -Size D ($) 1 -Stockings No WC - Visit Discharge Discharge Condition Stable Ambulatory Status Ambulatory Transportation Private Auto Medication Reconcilliation completed & Yes provided to patient/care provider Clinical Summary of Care Provided Yes Assessment/Plan Assessment/Plan (1) Leg wound, right: CODE(S): S81.801A - Unspecified open wound, right lower leg, initial encounter QUALIFIERS: Encounter type: subsequent encounter Qualified Code(s): S81.801D - Unspecified open wound, right lower leg, subsequent encounter (2) Puncture wound without foreign body, right lower leg, subsequent encounter: CODE(S): S81.831D - Puncture wound without foreign body, right lower leg, subsequent encounter (3) Cellulitis of right leg: CODE(S): L03.115 - Cellulitis of right lower limb (4) Chronic venous insufficiency: CODE(S): I87.2 - Venous insufficiency (chronic) (peripheral) (5) Hypertension: CODE(S): I10 - Essential (primary) hypertension QUALIFIERS: Hypertension type: essential hypertension Qualified Code(s): I10 - Essential (primary) hypertension (6) Congestive heart failure: CODE(S): I50.9 - Heart failure, unspecified QUALIFIERS: Heart failure type: unspecified Heart failure chronicity: chronic Qualified Code(s): I50.9 - Heart failure, unspecified (7) CAD (coronary artery disease): CODE(S): I25.10 - Atherosclerotic heart disease of [place] coronary artery without angina pectoris QUALIFIERS: Coronary Disease-Associated Artery/Lesion type: unspecified vessel or lesion type Associated angina: angina presence unspecified (8) Asthma: CODE(S): J45.909 - Unspecified asthma, uncomplicated QUALIFIERS: Asthma severity: unspecified severity (9) GERD (gastroesophageal reflux disease): CODE(S): K21.9 - Gastro-esophageal reflux disease without esophagitis QUALIFIERS: Esophagitis presence: esophagitis presence not specified Qualified Code(s): K21.9 - Gastro-esophageal reflux disease without esophagitis (10) Stage III chronic kidney disease: CODE(S): N18.3 - Chronic kidney disease, stage 3 (moderate) (11) PVD (peripheral vascular disease): CODE(S): I73.9 - Peripheral vascular disease, unspecified (12) History of deep vein thrombosis: CODE(S): Z86.718 - Personal history of other venous thrombosis and embolism (13) History of endometrial cancer: CODE(S): Z85.42 - Personal history of malignant neoplasm of other parts of uterus (14) History of gastrointestinal bleeding: CODE(S): Z87.19 - Personal history of other diseases of the digestive system (15) History of breast cancer: CODE(S): Z85.3 - Personal history of malignant neoplasm of breast (16) History of CVA (cerebrovascular accident): CODE(S): Z86.73 - Personal history of transient ischemic attack (TIA), and cerebral infarction without residual deficits (17) Osteoporosis: CODE(S): M81.0 - Age-related osteoporosis without current pathological fracture (18) History of myocardial infarction: CODE(S): I25.2 - Old myocardial infarction (19) History of bilateral mastectomy: CODE(S): Z90.13 - Acquired absence of bilateral breasts and nipples (20) H/O bilateral oophorectomy: CODE(S): Z90.722 - Acquired absence of ovaries, bilateral (21) History of cholecystectomy: CODE(S): Z90.49 - Acquired absence of other specified parts of digestive tract (22) History of colon surgery: CODE(S): Z98.890 - Other specified postprocedural states (23) History of hysterectomy: CODE(S): Z90.710 - Acquired absence of both cervix and uterus (24) Gout: CODE(S): M10.9 - Gout, unspecified PLAN: Plan This is an 81-year-old female who is active and functional. She sustained trauma to the right pretibial surface on May 19, 2022. She presented with a wound and recent cellulitis, with a culture which has been recently positive for Pseudomonas aeruginosa and Serratia marcescens. She was currently in the midst of a prescription for Levaquin, which appeared appropriate to the sensitivity results of her recent culture. The Levaquin prescription has been completed. She had been recently using Bactroban topically and Tubigrip's. We have implemented conservative treatment measures to minimize swelling to the right lower extremity. This includes leg elevation, with legs elevated to heart level, or higher. This is to be accomplished as much as possible. Prolonged idle sitting has been discouraged. Activity has been encouraged. We are to continue the use of Tubigrip's, of 20 to 30 mmHg compression. We are to implement the use of Promogran topically, which will be applied on a daily basis. The patient has been instructed in appropriate means of application. Her appetite is said to be good, and nutritional optimization has been discussed. Total time: 28 minutes
[2022-06-28 10:34] VITALS: BP 114/45; PULSE 75; RESP 20; TEMP 36; BMI 25.4
--- NOTE | 2022-06-28 12:40 | HP.PCM_ITS ---
History of Present Illness Date of Service: 06/28/22 Chief Complaint: Traumatic wound of the right lower extremity History of Wound: This is an 81-year-old female who presented with an open wound on the pretibial area of the right lower extremity, the result of recent trauma. On May 19, the patient stated a log rolled on me. She sustained trauma to the right pretibial area, resulting in an open wound. She presented to the emergency department on May 24, 2022, where she was prescribed Keflex 500 mg p.o. 3 times daily for 7 days. She has also been using Bactroban topically, and Tubigrip's for compression. It is noted that the patient underwent a noninvasive lower extremity arterial study approximately 1 year ago, where arterial perfusion in the right lower extremity was noted to be normal. Patient has multiple pre-existing medical conditions, which are listed below. A wound culture performed on May 27, 2022, was positive for Pseudomonas aeruginosa and Serratia marcescens. As result of these cultures, and according to sensitivity results, the patient was placed on Levaquin, which continued until the patient's initial appointment. The patient is functional for her age, and is said to have a good appetite. [facility]LY [facility] Medical History Bilateral lower extremity edema Broken heart syndrome Cellulitis of right leg Chronic venous insufficiency Congestive heart failure DVT (deep venous thrombosis) Endometrial cancer GI bleed Gout History of breast cancer History of breast cancer History of CVA (cerebrovascular accident) History of deep vein thrombosis History of endometrial cancer History of gastrointestinal bleeding History of myocardial infarction History of stroke Hypertension Kidney disease Kidney stones Laceration without foreign body, right lower leg, sequela Leg wound, right Myocardial infarction Osteoporosis Osteoporosis Puncture wound without foreign body, right lower leg, subsequent encounter PVD (peripheral vascular disease) Seizures Stroke/cerebrovascular accident Traumatic hematoma of right lower leg Venous ulcer of right lower extremity with varicose veins Home Medications albuterol sulfate 90 mcg/actuation aerosol inhaler 2 puff inhalation Q4H PRN PRN Shortness Of Breath 03/20/15 [History Last Taken 11/30/20] aspirin 81 mg chewable tablet 81 mg PO QHS heart health/stroke 03/20/15 [History Last Taken 12/01/20] montelukast 10 mg tablet 10 mg PO QHS asthma 03/20/15 [History Last Taken 12/01/20] spironolactone 25 mg tablet 25 mg PO DAILY water pill 03/20/15 [History Last Taken 12/01/20] torsemide 20 mg tablet 10 mg PO DAILY water pill 03/20/15 [History Last Taken 12/01/20] omeprazole 40 mg capsule,delayed release 40 mg PO PRN PRN stomach 06/14/19 [History Last Taken 12/02/20] losartan 25 mg tablet 12.5 - 25 mg PO DAILY BP 12/02/20 [History Last Taken 12/01/20] budesonide-formoterol HFA 160 mcg-4.5 mcg/actuation aerosol inhaler 2 puff inhalation BID breathing 02/25/21 [History Last Taken Unknown] nitrofurantoin macrocrystal 100 mg capsule (Macrodantin) 100 mg PO .PRN #20 caps 08/20/21 [Rx Last Taken Unknown] clopidogrel 75 mg tablet 1 tab PO DAILY 04/09/22 [History Last Taken Unknown] febuxostat 40 mg tablet 1 tab PO DAILY 04/09/22 [History Last Taken Unknown] albuterol sulfate 2.5 mg/3 mL (0.083 %) solution for nebulization 2.5 mg (3 mL) inhalation Q4H PRN #25 vials 04/18/22 [Rx Last Taken Unknown] cephalexin 500 mg capsule 500 mg PO TID #21 CAPSULES 05/24/22 [Rx Last Taken Unknown] Allergy/AdvReac Type Severity Reaction Status Date / Time diazepam [From Valium] Allergy seizures Verified 06/07/22 09:34 diphenhydramine HCl Allergy difficulty Verified 06/07/22 09:34 [From Benadryl] breathing esomeprazole magnesium Allergy chest pain Verified 06/07/22 09:34 [From Nexium] NSAIDS (Non-Steroidal Allergy Other Verified 06/07/22 09:34 Anti-Inflamma pegloticase [From Krystexxa] Allergy Other Verified 06/07/22 09:37 Penicillins Allergy Rash Verified 06/07/22 09:34 pentazocine lactate Allergy quit Verified 06/07/22 09:34 [From Talwin] breathing Sulfa (Sulfonamide Allergy Rash Verified 06/07/22 09:34 Antibiotics) sulfur dioxide Allergy massive Verified 06/07/22 09:34 headaches Family History Mother Cancer stomach throat Thyroid disorder Father Heart disease Surgical History H/O bilateral mastectomy H/O bilateral oophorectomy H/O bilateral oophorectomy H/O dilation and curettage History of bilateral mastectomy History of cholecystectomy History of cholecystectomy History of colon surgery History of colon surgery History of hysterectomy S/P RAFIA (total abdominal hysterectomy) Social History Smoking Status: Never smoker alcohol intake: never substance use type: does not use caffeine: Yes what type of physical activity do you participate in: walking and bicycling frequency: daily seatbelt use: always do you feel safe at home: Yes additional social history: Russell- Both are retired Vital Signs Vital Signs Vital Signs: 06/28/22 10:34 Temperature 96.8 F L Temperature Source Temporal Pulse Rate 75 Respiratory Rate 20 H Blood Pressure 114/45 L Blood Pressure Mean 68 Blood Pressure Source Monitor Weight Weight: 134 lb 6.711 oz Body Mass Index (BMI) 25.4 Physical Exam Const alert, oriented x3, no apparent distress, average body habitus and well nourished General Appearance: cooperative, comfortable, well kempt and well developed Orientation / Consciousness: awake, oriented to person, oriented to place and oriented to time HEENT normocephalic, head/scalp atraumatic and hearing grossly normal bilaterally Head and Scalp: normal to inspection, normocephalic and atraumatic External Ear: external ears normal Eyes PERRL and EOMs intact bilaterally General Eye: normal appearance of both eyes Resp normal respiratory effort, normal air movement, no retractions and no use of accessory muscles Effort and Inspection: able to speak in complete sentences Extremity no calf tenderness General Extremity: Negative for clubbing or cyanosis Skin Wound Narrative: Only slight swelling and edema are noted in the patient's right lower extremity. A superficial wound is noted on the right pretibial area. Dimensions are documented elsewhere. The wound appears to be smaller in size. There is no obvious sign of infection or cellulitis. There is a moderate amount of bioburden and nonviable tissue present. Neuro oriented x3, CN's II-XII intact bilaterally and moves all extremities Sensorium / Orientation: awake, alert, oriented to person, oriented to place and oriented to time Psych Appearance: grossly normal and appropriate Attitude: calm Activity / Motor Behavior: appropriate eye contact Speech: normal speech Mood & Affect: euthymic mood Thought Process: normal thought process Thought Content: normal thought content Attention / Concentration: attention grossly intact Debridement Note Debridement Note Wound debrided: Right pretibial wound Laterality: Right Type of Debridement: Excisional debridement Anesthesia Used: 5% Lidocaine Gel and Cetacaine Depth: Down to and including healthy tissue and in the subcutaneous layer Percentage of wound debrided: 100 Instrument Used: 5mm curette Tissue Removed: Bioburden Severity: Fat Layer Exposed Amount of bleeding with debridement: Mild Bleeding Controlled with: Compression and gauze Patient tolerated procedure: Patient tolerated procedure well Post-Debridement Measurements and Additional Note: Post-Debridement Measurements/Treatment - Nurse 1 - General Ulcer Assessment Start: 06/21/22 10:24 Freq: Status: Active Protocol: HAN Activity Type Activity Date Activity User E-sign Co-sign Detail Recorded Client Recorded Date Recorded By Document 06/21/22 10:24 AK [id number] 06/21/22 10:27 AK Document 06/28/22 10:34 DL [id number] 06/28/22 10:40 DL 06/21/22 06/28/22 10:24 10:34 - Today's Visit Information Type of service Follow-up Visit Follow-up Visit (Physician/[employer] [facility] (Physician/[employer] [facility] ) ) Arrival Mode Ambulatory Ambulatory Transfer Assistance None Patient Identification Verified (Name & Yes Yes ) Patient Requires Transmission-Based No No Precautions Safety Precautions NA Height and Weight Body Mass Index (BMI) 25.4 25.4 BMI Classification Overweight Overweight Vital Signs Temperature (97.8 F-99.1 F) 96.2 F L 96.8 F L Temperature Source Temporal Temporal Pulse Rate (60-100) 69 75 Pulse Location Monitor Respiratory Rate (12-18) 20 H Respiratory rate source Observation Blood Pressure (90/60-120/80) 149/69 H 114/45 L Blood Pressure Mean 95 68 Source Monitor Monitor History Since Last Visit- (Skip if this is Patient's initial visit) Have you changed medications since your No No last visit? Any new allergies or adverse reactions No No Had a fall/change in ADL's that may No No increase risk of falls Signs or symptoms of abuse and/or No No neglect since last visit Have you been in the hospital since your No No last visit? Has dressing in place as prescribed Yes Yes Has compression in place as prescribed Yes Yes Has offloadiing in place as prescribed N/A Experienced any changes in pain level or No No management Left Footwear Regular Shoe Right Footwear Regular Shoe Pain Scale: 0-10 Numeric Is Patient Pain Free? Yes Yes WC - Nurse 1 - General Ulcer Measurement Start: 06/21/22 10:24 Freq: Status: Active Protocol: Activity Type Activity Date Activity User E-sign Co-sign Detail Recorded Client Recorded Date Recorded By Document 06/21/22 10:24 AK [id number] 06/21/22 10:27 AK Document 06/28/22 10:34 DL [id number] 06/28/22 10:40 DL 06/21/22 06/28/22 10:24 10:34 Wound Center Nurse 1 #4 R Holt -Combined with other wound No -Current Size (cm) - Length 3.5 2.4 -Current Size (cm) - Width 3 1.4 -Current Size (cm) - Depth 0.1 0.1 -Total Square Cm 10.5 3.36 -Photo Taken No No -Tunneling No -Undermining/Tunneling No -Circular Undermining No -Change in Wound Grade/Stage No -Exudate Amt Small Small -Exudate Type Serosanguineous Serosanguineous -Wound Margin Distinct, Distinct, Outline Outline Attached Attached -Granulation Amt None Present (0 Large (67-100%) %) -Granulation Quality N/A Red -Slough/Fibrin Yes -Necrosis Amt Small (1-33%) Small (1-33%) -Necrotic Tissue Type Adherent Slough -Structure Exposed N/A N/A -Texture (Ade-wound Skin Appearance) No Abnormality, Scarring Assessed -Moisture (Ade-wound Skin Appearance) No Abnormality, Dry/Scaly Assessed -Color (Ade-wound Skin Appearance) No Abnormality, Hemosiderin Assessed Staining -Temperature (Ade-wound Skin No Abnormality No Abnormality Appearance) (Pt Warm) (Pt Warm) -Tenderness on Palpation (Ade-wound No No Skin Appearance) -Ulcer Cleansing Soap and Water Rinsed/ Irrigated with Saline -Foul Odor after Cleansing No No -Anesthetic Used 4% Lidocaine 5% Lidocaine Solution Gel Lower Limb Edema Present No Right Calf (cm) 36.2 36 Right Ankle (cm) 22.5 22 Left Calf (cm) 36 Left Ankle (cm) 21.8 WC - Nurse 2 - General Ulcer CM Notes Start: 06/21/22 10:24 Freq: Status: Active Protocol: Activity Type Activity Date Activity User E-sign Co-sign Detail Recorded Client Recorded Date Recorded By Document 06/21/22 11:26 PL [id number] 06/21/22 11:27 PL Document 06/28/22 12:13 PL [id number] 06/28/22 12:14 PL 06/21/22 06/28/22 11:26 12:13 Wound Center Nurse 2 #4 R Holt -Time 09:59 10:50 -Correct Patient Yes Yes -Correct Side, Site, Position Yes Yes -Correct Procedure Yes Yes -Procedure Performed Yes Yes -Type of Procedure Debridement Debridement -Clinical Debridement Subcutaneous Subcutaneous -Tissue Removed Subcutaneous Subcutaneous -Post Debridement (cm) - Length 3.5 2.4 -Post Debridement (cm) - Width 2.0 1.4 -Post Debridement (cm) - Depth 0.1 0.1 -Total Square (Post) (cm) 7.00 3.36 -Area of Debridement (cm) - Length 3.5 2.4 -Area of Debridement (cm) - Width 2.0 1.4 -Total Square (Area) (cm) 7.00 3.36 -Tunneling No No -Undermining/Tunneling No No -Circular Undermining No No -Wound/Ulcer Outcome Not Healed Not Healed -Ulcer Cleansing Rinsed/ Rinsed/ Irrigated with Irrigated with Saline Saline -Foul Odor after Cleansing No No -Bioengineered Tissue No No -Bleeding Controlled with Pressure Pressure -Treatment Response Procedure Procedure Tolerated Well Tolerated Well -Debridement - Subq, 1st 20sq cm Yes Yes Pain Scale: 0-10 Numeric Is Patient Pain Free? Yes Yes WC - Nurse 3 - General Ulcer D/C NN Start: 06/21/22 10:24 Freq: Status: Active Protocol: Activity Type Activity Date Activity User E-sign Co-sign Detail Recorded Client Recorded Date Recorded By Document 06/21/22 10:24 AK [id number] 06/21/22 10:27 AK 06/21/22 10:24 Vital Signs Temperature (97.8 F-99.1 F) 96.2 F L Temperature Source Temporal Pulse Rate (60-100) 69 Blood Pressure (90/60-120/80) 149/69 H Blood Pressure Mean 95 Source Monitor Pain Scale: 0-10 Numeric Is Patient Pain Free? Yes Wound Care Nurse 3 #4 R Holt -Ulcer Cleansing Rinsed/ Irrigated with Saline -Foul Odor after Cleansing No -Negative Pressure Wound Therapy N/A -Primary Dressing Applied Promogran -Primary Dressing Covered/Secured with Dry Gauze & Roll Gauze, Secured with Tape -Promogran 2 Right -Tubular Bandage Single Layer -Size of Tubigrip Used Size D -Size D ($) 1 -Stockings No WC - Visit Discharge Discharge Condition Stable Ambulatory Status Ambulatory Transportation Private Auto Medication Reconcilliation completed & Yes provided to patient/care provider Clinical Summary of Care Provided Yes Assessment/Plan Assessment/Plan (1) Leg wound, right: CODE(S): S81.801A - Unspecified open wound, right lower leg, initial encounter QUALIFIERS: Encounter type: subsequent encounter Qualified Code(s): S81.801D - Unspecified open wound, right lower leg, subsequent encounter (2) Puncture wound without foreign body, right lower leg, subsequent encounter: CODE(S): S81.831D - Puncture wound without foreign body, right lower leg, subsequent encounter (3) Cellulitis of right leg: CODE(S): L03.115 - Cellulitis of right lower limb (4) Chronic venous insufficiency: CODE(S): I87.2 - Venous insufficiency (chronic) (peripheral) (5) Hypertension: CODE(S): I10 - Essential (primary) hypertension QUALIFIERS: Hypertension type: essential hypertension Qualified Code(s): I10 - Essential (primary) hypertension (6) Congestive heart failure: CODE(S): I50.9 - Heart failure, unspecified QUALIFIERS: Heart failure type: unspecified Heart failure chronicity: chronic Qualified Code(s): I50.9 - Heart failure, unspecified (7) CAD (coronary artery disease): CODE(S): I25.10 - Atherosclerotic heart disease of [place] coronary artery without angina pectoris QUALIFIERS: Coronary Disease-Associated Artery/Lesion type: unspecified vessel or lesion type Associated angina: angina presence unspecified (8) Asthma: CODE(S): J45.909 - Unspecified asthma, uncomplicated QUALIFIERS: Asthma severity: unspecified severity (9) GERD (gastroesophageal reflux disease): CODE(S): K21.9 - Gastro-esophageal reflux disease without esophagitis QUALIFIERS: Esophagitis presence: esophagitis presence not specified Qualified Code(s): K21.9 - Gastro-esophageal reflux disease without esophagitis (10) Stage III chronic kidney disease: CODE(S): N18.3 - Chronic kidney disease, stage 3 (moderate) (11) PVD (peripheral vascular disease): CODE(S): I73.9 - Peripheral vascular disease, unspecified (12) History of deep vein thrombosis: CODE(S): Z86.718 - Personal history of other venous thrombosis and embolism (13) History of endometrial cancer: CODE(S): Z85.42 - Personal history of malignant neoplasm of other parts of uterus (14) History of gastrointestinal bleeding: CODE(S): Z87.19 - Personal history of other diseases of the digestive system (15) History of breast cancer: CODE(S): Z85.3 - Personal history of malignant neoplasm of breast (16) History of CVA (cerebrovascular accident): CODE(S): Z86.73 - Personal history of transient ischemic attack (TIA), and cerebral infarction without residual deficits (17) Osteoporosis: CODE(S): M81.0 - Age-related osteoporosis without current pathological fracture (18) History of myocardial infarction: CODE(S): I25.2 - Old myocardial infarction (19) History of bilateral mastectomy: CODE(S): Z90.13 - Acquired absence of bilateral breasts and nipples (20) H/O bilateral oophorectomy: CODE(S): Z90.722 - Acquired absence of ovaries, bilateral (21) History of cholecystectomy: CODE(S): Z90.49 - Acquired absence of other specified parts of digestive tract (22) History of colon surgery: CODE(S): Z98.890 - Other specified postprocedural states (23) History of hysterectomy: CODE(S): Z90.710 - Acquired absence of both cervix and uterus (24) Gout: CODE(S): M10.9 - Gout, unspecified PLAN: Plan This is an 81-year-old female who is active and functional. She sustained trauma to the right pretibial surface on May 19, 2022. She presented with a wound and recent cellulitis, with a culture which has been recently positive for Pseudomonas aeruginosa and Serratia marcescens. She was in the midst of a prescription for Levaquin, which appeared appropriate to the sensitivity results of her recent culture. The Levaquin prescription has been completed. She had been recently using Bactroban topically and Tubigrip's. We have implemented conservative treatment measures to minimize swelling to the right lower extremity. This includes leg elevation, with legs elevated to heart level, or higher. This is to be accomplished as much as possible. Prolonged idle sitting has been discouraged. Activity has been encouraged. We are to continue the use of Tubigrip's, of 20 to 30 mmHg compression. We are to continue the use of Promogran topically, which will be applied on a daily basis. The patient has been instructed in appropriate means of application. Her appetite is said to be good, and nutritional optimization has been discussed. Total time: 29 minutes
[2022-07-05 10:37] VITALS: BP 135/42; PULSE 68; TEMP 36.4; BMI 25.4
--- NOTE | 2022-07-05 11:46 | PCM.WC.HP ---
History of Present Illness Date of Service: 07/05/22 Chief Complaint: Traumatic wound of the right lower extremity History of Wound: This is an 81-year-old female who presented with an open wound on the pretibial area of the right lower extremity, the result of recent trauma. On May 19, the patient stated a log rolled on me. She sustained trauma to the right pretibial area, resulting in an open wound. She presented to the emergency department on May 24, 2022, where she was prescribed Keflex 500 mg p.o. 3 times daily for 7 days. She has also been using Bactroban topically, and Tubigrip's for compression. It is noted that the patient underwent a noninvasive lower extremity arterial study approximately 1 year ago, where arterial perfusion in the right lower extremity was noted to be normal. Patient has multiple pre-existing medical conditions, which are listed below. A wound culture performed on May 27, 2022, was positive for Pseudomonas aeruginosa and Serratia marcescens. As result of these cultures, and according to sensitivity results, the patient was placed on Levaquin, which continued until the patient's initial appointment. The patient is functional for her age, and is said to have a good appetite. [facility] Medical History Bilateral lower extremity edema Broken heart syndrome Cellulitis of right leg Chronic venous insufficiency Congestive heart failure DVT (deep venous thrombosis) Endometrial cancer GI bleed Gout History of breast cancer History of breast cancer History of CVA (cerebrovascular accident) History of deep vein thrombosis History of endometrial cancer History of gastrointestinal bleeding History of myocardial infarction History of stroke Hypertension Kidney disease Kidney stones Laceration without foreign body, right lower leg, sequela Leg wound, right Myocardial infarction Osteoporosis Osteoporosis Puncture wound without foreign body, right lower leg, subsequent encounter PVD (peripheral vascular disease) Seizures Stroke/cerebrovascular accident Traumatic hematoma of right lower leg Venous ulcer of right lower extremity with varicose veins Home Medications albuterol sulfate 90 mcg/actuation aerosol inhaler 2 puff inhalation Q4H PRN PRN Shortness Of Breath 03/20/15 [History Last Taken 11/30/20] aspirin 81 mg chewable tablet 81 mg PO QHS heart health/stroke 03/20/15 [History Last Taken 12/01/20] montelukast 10 mg tablet 10 mg PO QHS asthma 03/20/15 [History Last Taken 12/01/20] spironolactone 25 mg tablet 25 mg PO DAILY water pill 03/20/15 [History Last Taken 12/01/20] torsemide 20 mg tablet 10 mg PO DAILY water pill 03/20/15 [History Last Taken 12/01/20] omeprazole 40 mg capsule,delayed release 40 mg PO PRN PRN stomach 06/14/19 [History Last Taken 12/02/20] losartan 25 mg tablet 12.5 - 25 mg PO DAILY BP 12/02/20 [History Last Taken 12/01/20] budesonide-formoterol HFA 160 mcg-4.5 mcg/actuation aerosol inhaler 2 puff inhalation BID breathing 02/25/21 [History Last Taken Unknown] nitrofurantoin macrocrystal 100 mg capsule (Macrodantin) 100 mg PO .PRN #20 caps 08/20/21 [Rx Last Taken Unknown] clopidogrel 75 mg tablet 1 tab PO DAILY 04/09/22 [History Last Taken Unknown] febuxostat 40 mg tablet 1 tab PO DAILY 04/09/22 [History Last Taken Unknown] albuterol sulfate 2.5 mg/3 mL (0.083 %) solution for nebulization 2.5 mg (3 mL) inhalation Q4H PRN #25 vials 04/18/22 [Rx Last Taken Unknown] cephalexin 500 mg capsule 500 mg PO TID #21 CAPSULES 05/24/22 [Rx Last Taken Unknown] Allergy/AdvReac Type Severity Reaction Status Date / Time diazepam [From Valium] Allergy seizures Verified 06/07/22 09:34 diphenhydramine HCl Allergy difficulty Verified 06/07/22 09:34 [From Benadryl] breathing esomeprazole magnesium Allergy chest pain Verified 06/07/22 09:34 [From Nexium] NSAIDS (Non-Steroidal Allergy Other Verified 06/07/22 09:34 Anti-Inflamma pegloticase [From Krystexxa] Allergy Other Verified 06/07/22 09:37 Penicillins Allergy Rash Verified 06/07/22 09:34 pentazocine lactate Allergy quit Verified 06/07/22 09:34 [From Talwin] breathing Sulfa (Sulfonamide Allergy Rash Verified 06/07/22 09:34 Antibiotics) sulfur dioxide Allergy massive Verified 06/07/22 09:34 headaches Family History Mother Cancer stomach throat Thyroid disorder Father Heart disease Surgical History H/O bilateral mastectomy H/O bilateral oophorectomy H/O bilateral oophorectomy H/O dilation and curettage History of bilateral mastectomy History of cholecystectomy History of cholecystectomy History of colon surgery History of colon surgery History of hysterectomy S/P RAFIA (total abdominal hysterectomy) Social History Smoking Status: Never smoker alcohol intake: never substance use type: does not use caffeine: Yes what type of physical activity do you participate in: walking and bicycling frequency: daily seatbelt use: always do you feel safe at home: Yes additional social history: Russell- Both are retired Vital Signs Vital Signs Vital Signs: 07/05/22 10:37 Temperature 97.6 F L Temperature Source Temporal Pulse Rate 68 Blood Pressure 135/42 H Blood Pressure Mean 73 Blood Pressure Source Monitor Blood Pressure Position Sitting Blood Pressure Location Right Arm Weight Weight: 134 lb 6.711 oz Body Mass Index (BMI) 25.4 Physical Exam Const alert, oriented x3, no apparent distress, average body habitus and well nourished General Appearance: cooperative, comfortable, well kempt and well developed Orientation / Consciousness: awake, oriented to person, oriented to place and oriented to time HEENT normocephalic, head/scalp atraumatic and hearing grossly normal bilaterally Head and Scalp: normal to inspection, normocephalic and atraumatic External Ear: external ears normal Eyes PERRL and EOMs intact bilaterally General Eye: normal appearance of both eyes Resp normal respiratory effort, normal air movement, no retractions and no use of accessory muscles Effort and Inspection: able to speak in complete sentences Extremity no calf tenderness General Extremity: Negative for clubbing or cyanosis Skin Wound Narrative: Only slight swelling and edema are noted in the patient's right lower extremity. A superficial wound is noted on the right pretibial area. Dimensions are documented elsewhere. The wound appears to be smaller in size. There is no obvious sign of infection or cellulitis. There is a small amount of bioburden and nonviable tissue present. Neuro oriented x3, CN's II-XII intact bilaterally and moves all extremities Sensorium / Orientation: awake, alert, oriented to person, oriented to place and oriented to time Psych Appearance: grossly normal and appropriate Attitude: calm Activity / Motor Behavior: appropriate eye contact Speech: normal speech Mood & Affect: euthymic mood Thought Process: normal thought process Thought Content: normal thought content Attention / Concentration: attention grossly intact Debridement Note Debridement Note Wound debrided: Right pretibial wound Laterality: Right Type of Debridement: Excisional debridement Anesthesia Used: 5% Lidocaine Gel and Cetacaine Depth: Down to and including healthy tissue and in the subcutaneous layer Percentage of wound debrided: 100 Instrument Used: 5mm curette Tissue Removed: Bioburden Severity: Fat Layer Exposed Amount of bleeding with debridement: Mild Bleeding Controlled with: Compression and gauze Patient tolerated procedure: Patient tolerated procedure well Post-Debridement Measurements and Additional Note: Post-Debridement Measurements/Treatment ROSS - Nurse 1 - General Ulcer Assessment Start: 06/21/22 10:24 Freq: Status: Active Protocol: HAN Activity Type Activity Date Activity User E-sign Co-sign Detail Recorded Client Recorded Date Recorded By Document 06/21/22 10:24 AK [id number] 06/21/22 10:27 AK Document 06/28/22 10:34 DL [id number] 06/28/22 10:40 DL Document 07/05/22 10:37 KR [id number] 07/05/22 10:38 KR 06/21/22 06/28/22 07/05/22 10:24 10:34 10:37 - Today's Visit Information Type of service Follow-up Visit Follow-up Visit Follow-up Visit (Physician/TRANSACTION COORDINATOR (Physician/TRANSACTION COORDINATOR (Physician/TRANSACTION COORDINATOR ) ) ) Arrival Mode Ambulatory Ambulatory Ambulatory Transfer Assistance None Patient Identification Verified (Name & Yes Yes Yes ) Patient Requires Transmission-Based No No Precautions Safety Precautions NA Height and Weight Body Mass Index (BMI) 25.4 25.4 25.4 BMI Classification Overweight Overweight Overweight Vital Signs Temperature (97.8 F-99.1 F) 96.2 F L 96.8 F L 97.6 F L Temperature Source Temporal Temporal Temporal Pulse Rate (60-100) 69 75 68 Pulse Location Monitor Monitor Respiratory Rate (12-18) 20 H Respiratory rate source Observation Blood Pressure (90/60-120/80) 149/69 H 114/45 L 135/42 H Blood Pressure Mean 95 68 73 Source Monitor Monitor Monitor Position Sitting Blood Pressure Location Right Arm History Since Last Visit- (Skip if this is Patient's initial visit) Have you changed medications since your No No No last visit? Any new allergies or adverse reactions No No No Had a fall/change in ADL's that may No No No increase risk of falls Signs or symptoms of abuse and/or No No No neglect since last visit Have you been in the hospital since your No No No last visit? Has dressing in place as prescribed Yes Yes Yes Has compression in place as prescribed Yes Yes Yes Has offloadiing in place as prescribed N/A N/A Experienced any changes in pain level or No No No management Left Footwear Regular Shoe Regular Shoe Right Footwear Regular Shoe Regular Shoe Pain Scale: 0-10 Numeric Is Patient Pain Free? Yes Yes Yes WC - Nurse 1 - General Ulcer Measurement Start: 06/21/22 10:24 Freq: Status: Active Protocol: Activity Type Activity Date Activity User E-sign Co-sign Detail Recorded Client Recorded Date Recorded By Document 06/21/22 10:24 AK [id number] 06/21/22 10:27 AK Document 06/28/22 10:34 DL [id number] 06/28/22 10:40 DL Document 07/05/22 10:37 KR [id number] 07/05/22 10:38 KR 06/21/22 06/28/22 07/05/22 10:24 10:34 10:37 Wound Center Nurse 1 #4 R Holt -Combined with other wound No -Current Size (cm) - Length 3.5 2.4 1.1 -Current Size (cm) - Width 3 1.4 1.2 -Current Size (cm) - Depth 0.1 0.1 0.1 -Total Square Cm 10.5 3.36 1.32 -Photo Taken No No -Tunneling No -Undermining/Tunneling No -Circular Undermining No -Change in Wound Grade/Stage No -Exudate Amt Small Small Small -Exudate Type Serosanguineous Serosanguineous Serosanguineous -Wound Margin Distinct, Distinct, Distinct, Outline Outline Outline Attached Attached Attached -Granulation Amt None Present (0 Large (67-100%) Small (1-33%) %) -Granulation Quality N/A Red [place] -Slough/Fibrin Yes -Necrosis Amt Small (1-33%) Small (1-33%) None Present (0 %) -Necrotic Tissue Type Adherent Slough -Structure Exposed N/A N/A -Texture (Ade-wound Skin Appearance) No Abnormality, Scarring Assessed, Assessed Scarring -Moisture (Ade-wound Skin Appearance) No Abnormality, Dry/Scaly No Abnormality, Assessed Assessed -Color (Ade-wound Skin Appearance) No Abnormality, Hemosiderin No Abnormality, Assessed Staining Assessed -Temperature (Ade-wound Skin No Abnormality No Abnormality No Abnormality Appearance) (Pt Warm) (Pt Warm) (Pt Warm) -Tenderness on Palpation (Ade-wound No No No Skin Appearance) -Ulcer Cleansing Soap and Water Rinsed/ Rinsed/ Irrigated with Irrigated with Saline Saline -Foul Odor after Cleansing No No No -Anesthetic Used 4% Lidocaine 5% Lidocaine 5% Lidocaine Solution Gel Gel Lower Limb Edema Present No Right Calf (cm) 36.2 36 39.1 Right Ankle (cm) 22.5 22 23.3 Left Calf (cm) 36 Left Ankle (cm) 21.8 WC - Nurse 2 - General Ulcer CM Notes Start: 06/21/22 10:24 Freq: Status: Active Protocol: Activity Type Activity Date Activity User E-sign Co-sign Detail Recorded Client Recorded Date Recorded By Document 06/21/22 11:26 [id number] 06/21/22 11:27 PL Document 06/28/22 12:13 [id number] 06/28/22 12:14 PL Document 07/05/22 11:10 [id number] 07/05/22 11:11 PL 06/21/22 06/28/22 07/05/22 11:26 12:13 11:10 Wound Center Nurse 2 #4 R Holt -Time 09:59 10:50 10:44 -Correct Patient Yes Yes Yes -Correct Side, Site, Position Yes Yes Yes -Correct Procedure Yes Yes Yes -Procedure Performed Yes Yes Yes -Type of Procedure Debridement Debridement Debridement -Clinical Debridement Subcutaneous Subcutaneous Subcutaneous -Tissue Removed Subcutaneous Subcutaneous Subcutaneous -Post Debridement (cm) - Length 3.5 2.4 1.1 -Post Debridement (cm) - Width 2.0 1.4 1.2 -Post Debridement (cm) - Depth 0.1 0.1 0.1 -Total Square (Post) (cm) 7.00 3.36 1.32 -Area of Debridement (cm) - Length 3.5 2.4 1.1 -Area of Debridement (cm) - Width 2.0 1.4 1.2 -Total Square (Area) (cm) 7.00 3.36 1.32 -Tunneling No No No -Undermining/Tunneling No No No -Circular Undermining No No No -Wound/Ulcer Outcome Not Healed Not Healed Not Healed -Ulcer Cleansing Rinsed/ Rinsed/ Rinsed/ Irrigated with Irrigated with Irrigated with Saline Saline Saline -Foul Odor after Cleansing No No No -Bioengineered Tissue No No No -Bleeding Controlled with Pressure Pressure Pressure -Treatment Response Procedure Procedure Procedure Tolerated Well Tolerated Well Tolerated Well -Debridement - Subq, 1st 20sq cm Yes Yes Yes Pain Scale: 0-10 Numeric Is Patient Pain Free? Yes Yes Yes WC - Nurse 3 - General Ulcer D/C NN Start: 06/21/22 10:24 Freq: Status: Active Protocol: Activity Type Activity Date Activity User E-sign Co-sign Detail Recorded Client Recorded Date Recorded By Document 06/21/22 10:24 AK [id number] 06/21/22 10:27 AK Document 06/28/22 13:22 KR [id number] 06/28/22 13:22 KR Document 07/05/22 11:03 KR [id number] 07/05/22 11:04 KR 06/21/22 06/28/22 07/05/22 10:24 13:22 11:03 Vital Signs Temperature (97.8 F-99.1 F) 96.2 F L Temperature Source Temporal Pulse Rate (60-100) 69 Blood Pressure (90/60-120/80) 149/69 H Blood Pressure Mean 95 Source Monitor Pain Scale: 0-10 Numeric Is Patient Pain Free? Yes Yes Yes Wound Care Nurse 3 #4 R Holt -Ulcer Cleansing Rinsed/ Rinsed/ Rinsed/ Irrigated with Irrigated with Irrigated with Saline Saline Saline -Foul Odor after Cleansing No -Negative Pressure Wound Therapy N/A -Primary Dressing Applied Promogran Promogran Promogran -Primary Dressing Covered/Secured with Dry Gauze & Dry Gauze,Dry Roll Gauze, Gauze & Roll Secured with Gauze,Secured Tape with Tape -Promogran 2 2 1 Right -Tubular Bandage Single Layer -Size of Tubigrip Used Size D -Size D ($) 1 -Stockings No WC - Visit Discharge Discharge Condition Stable Stable Stable Ambulatory Status Ambulatory Ambulatory Ambulatory Transportation Private Auto Private Auto Private Auto Medication Reconcilliation completed & Yes provided to patient/care provider Clinical Summary of Care Provided Yes Assessment/Plan Assessment/Plan (1) Leg wound, right: CODE(S): S81.801A - Unspecified open wound, right lower leg, initial encounter QUALIFIERS: Encounter type: subsequent encounter Qualified Code(s): S81.801D - Unspecified open wound, right lower leg, subsequent encounter (2) Puncture wound without foreign body, right lower leg, subsequent encounter: CODE(S): S81.831D - Puncture wound without foreign body, right lower leg, subsequent encounter (3) Cellulitis of right leg: CODE(S): L03.115 - Cellulitis of right lower limb (4) Chronic venous insufficiency: CODE(S): I87.2 - Venous insufficiency (chronic) (peripheral) (5) Hypertension: CODE(S): I10 - Essential (primary) hypertension QUALIFIERS: Hypertension type: essential hypertension Qualified Code(s): I10 - Essential (primary) hypertension (6) Congestive heart failure: CODE(S): I50.9 - Heart failure, unspecified QUALIFIERS: Heart failure type: unspecified Heart failure chronicity: chronic Qualified Code(s): I50.9 - Heart failure, unspecified (7) CAD (coronary artery disease): CODE(S): I25.10 - Atherosclerotic heart disease of [place] coronary artery without angina pectoris QUALIFIERS: Coronary Disease-Associated Artery/Lesion type: unspecified vessel or lesion type Associated angina: angina presence unspecified (8) Asthma: CODE(S): J45.909 - Unspecified asthma, uncomplicated QUALIFIERS: Asthma severity: unspecified severity (9) GERD (gastroesophageal reflux disease): CODE(S): K21.9 - Gastro-esophageal reflux disease without esophagitis QUALIFIERS: Esophagitis presence: esophagitis presence not specified Qualified Code(s): K21.9 - Gastro-esophageal reflux disease without esophagitis (10) Stage III chronic kidney disease: CODE(S): N18.3 - Chronic kidney disease, stage 3 (moderate) (11) PVD (peripheral vascular disease): CODE(S): I73.9 - Peripheral vascular disease, unspecified (12) History of deep vein thrombosis: CODE(S): Z86.718 - Personal history of other venous thrombosis and embolism (13) History of endometrial cancer: CODE(S): Z85.42 - Personal history of malignant neoplasm of other parts of uterus (14) History of gastrointestinal bleeding: CODE(S): Z87.19 - Personal history of other diseases of the digestive system (15) History of breast cancer: CODE(S): Z85.3 - Personal history of malignant neoplasm of breast (16) History of CVA (cerebrovascular accident): CODE(S): Z86.73 - Personal history of transient ischemic attack (TIA), and cerebral infarction without residual deficits (17) Osteoporosis: CODE(S): M81.0 - Age-related osteoporosis without current pathological fracture (18) History of myocardial infarction: CODE(S): I25.2 - Old myocardial infarction (19) History of bilateral mastectomy: CODE(S): Z90.13 - Acquired absence of bilateral breasts and nipples (20) H/O bilateral oophorectomy: CODE(S): Z90.722 - Acquired absence of ovaries, bilateral (21) History of cholecystectomy: CODE(S): Z90.49 - Acquired absence of other specified parts of digestive tract (22) History of colon surgery: CODE(S): Z98.890 - Other specified postprocedural states (23) History of hysterectomy: CODE(S): Z90.710 - Acquired absence of both cervix and uterus (24) Gout: CODE(S): M10.9 - Gout, unspecified PLAN: Plan This is an 81-year-old female who is active and functional. She sustained trauma to the right pretibial surface on May 19, 2022. She presented with a wound and recent cellulitis, with a culture which has been recently positive for Pseudomonas aeruginosa and Serratia marcescens. She was in the midst of a prescription for Levaquin, which appeared appropriate to the sensitivity results of her recent culture. The Levaquin prescription has been completed. She had been recently using Bactroban topically and Tubigrip's. We have implemented conservative treatment measures to minimize swelling to the right lower extremity. This includes leg elevation, with legs elevated to heart level, or higher. This is to be accomplished as much as possible. Prolonged idle sitting has been discouraged. Activity has been encouraged. We are to continue the use of Tubigrip's, of 20 to 30 mmHg compression. We are to continue the use of Promogran topically, which will be applied on a daily basis. The patient has been instructed in appropriate means of application. Her appetite is said to be good, and nutritional optimization has been discussed. Total time: 28 minutes
[2022-07-12 09:50] VITALS: BP 122/62; PULSE 67; RESP 18; TEMP 36.3; BMI 25.4
--- NOTE | 2022-07-12 14:45 | HP.PCM_ITS ---
History of Present Illness Date of Service: 07/12/22 Chief Complaint: Traumatic wound of the right lower extremity History of Wound: This is an 81-year-old female who presented with an open wound on the pretibial area of the right lower extremity, the result of recent trauma. On May 19, the patient stated a log rolled on me. She sustained trauma to the right pretibial area, resulting in an open wound. She presented to the emergency department on May 24, 2022, where she was prescribed Keflex 500 mg p.o. 3 times daily for 7 days. She has also been using Bactroban topically, and Tubigrip's for compression. It is noted that the patient underwent a noninvasive lower extremity arterial study approximately 1 year ago, where arterial perfusion in the right lower extremity was noted to be normal. Patient has multiple pre-existing medical conditions, which are listed below. A wound culture performed on May 27, 2022, was positive for Pseudomonas aeruginosa and Serratia marcescens. As result of these cultures, and according to sensitivity results, the patient was placed on Levaquin, which continued until the patient's initial appointment. The patient is functional for her age, and is said to have a good appetite. [facility] Medical History Bilateral lower extremity edema Broken heart syndrome Cellulitis of right leg Chronic venous insufficiency Congestive heart failure DVT (deep venous thrombosis) Endometrial cancer GI bleed Gout History of breast cancer History of breast cancer History of CVA (cerebrovascular accident) History of deep vein thrombosis History of endometrial cancer History of gastrointestinal bleeding History of myocardial infarction History of stroke Hypertension Kidney disease Kidney stones Laceration without foreign body, right lower leg, sequela Leg wound, right Myocardial infarction Osteoporosis Osteoporosis Puncture wound without foreign body, right lower leg, subsequent encounter PVD (peripheral vascular disease) Seizures Stroke/cerebrovascular accident Traumatic hematoma of right lower leg Venous ulcer of right lower extremity with varicose veins Home Medications albuterol sulfate 90 mcg/actuation aerosol inhaler 2 puff inhalation Q4H PRN PRN Shortness Of Breath 03/20/15 [History Last Taken 11/30/20] aspirin 81 mg chewable tablet 81 mg PO QHS heart health/stroke 03/20/15 [History Last Taken 12/01/20] montelukast 10 mg tablet 10 mg PO QHS asthma 03/20/15 [History Last Taken 12/01/20] spironolactone 25 mg tablet 25 mg PO DAILY water pill 03/20/15 [History Last Taken 12/01/20] torsemide 20 mg tablet 10 mg PO DAILY water pill 03/20/15 [History Last Taken 12/01/20] omeprazole 40 mg capsule,delayed release 40 mg PO PRN PRN stomach 06/14/19 [History Last Taken 12/02/20] losartan 25 mg tablet 12.5 - 25 mg PO DAILY BP 12/02/20 [History Last Taken 12/01/20] budesonide-formoterol HFA 160 mcg-4.5 mcg/actuation aerosol inhaler 2 puff inhalation BID breathing 02/25/21 [History Last Taken Unknown] nitrofurantoin macrocrystal 100 mg capsule (Macrodantin) 100 mg PO .PRN #20 caps 08/20/21 [Rx Last Taken Unknown] clopidogrel 75 mg tablet 1 tab PO DAILY 04/09/22 [History Last Taken Unknown] febuxostat 40 mg tablet 1 tab PO DAILY 04/09/22 [History Last Taken Unknown] albuterol sulfate 2.5 mg/3 mL (0.083 %) solution for nebulization 2.5 mg (3 mL) inhalation Q4H PRN #25 vials 04/18/22 [Rx Last Taken Unknown] cephalexin 500 mg capsule 500 mg PO TID #21 CAPSULES 05/24/22 [Rx Last Taken Unknown] Allergy/AdvReac Type Severity Reaction Status Date / Time diazepam [From Valium] Allergy seizures Verified 06/07/22 09:34 diphenhydramine HCl Allergy difficulty Verified 06/07/22 09:34 [From Benadryl] breathing esomeprazole magnesium Allergy chest pain Verified 06/07/22 09:34 [From Nexium] NSAIDS (Non-Steroidal Allergy Other Verified 06/07/22 09:34 Anti-Inflamma pegloticase [From Krystexxa] Allergy Other Verified 06/07/22 09:37 Penicillins Allergy Rash Verified 06/07/22 09:34 pentazocine lactate Allergy quit Verified 06/07/22 09:34 [From Talwin] breathing Sulfa (Sulfonamide Allergy Rash Verified 06/07/22 09:34 Antibiotics) sulfur dioxide Allergy massive Verified 06/07/22 09:34 headaches Family History Mother Cancer stomach throat Thyroid disorder Father Heart disease Surgical History H/O bilateral mastectomy H/O bilateral oophorectomy H/O bilateral oophorectomy H/O dilation and curettage History of bilateral mastectomy History of cholecystectomy History of cholecystectomy History of colon surgery History of colon surgery History of hysterectomy S/P RAFIA (total abdominal hysterectomy) Social History Smoking Status: Never smoker alcohol intake: never substance use type: does not use caffeine: Yes what type of physical activity do you participate in: walking and bicycling frequency: daily seatbelt use: always do you feel safe at home: Yes additional social history: Russell- Both are retired Vital Signs Vital Signs Vital Signs: 07/12/22 09:50 Temperature 97.4 F L Temperature Source Temporal Pulse Rate 67 Respiratory Rate 18 Blood Pressure 122/62 H Blood Pressure Mean 82 Blood Pressure Source Monitor Weight Weight: 134 lb 6.711 oz Body Mass Index (BMI) 25.4 Physical Exam Const alert, oriented x3, no apparent distress, average body habitus and well nourished General Appearance: cooperative, comfortable, well kempt and well developed Orientation / Consciousness: awake, oriented to person, oriented to place and oriented to time HEENT normocephalic, head/scalp atraumatic and hearing grossly normal bilaterally Head and Scalp: normal to inspection, normocephalic and atraumatic External Ear: external ears normal Eyes PERRL and EOMs intact bilaterally General Eye: normal appearance of both eyes Resp normal respiratory effort, normal air movement, no retractions and no use of accessory muscles Effort and Inspection: able to speak in complete sentences Extremity no calf tenderness General Extremity: Negative for clubbing or cyanosis Skin Wound Narrative: Only slight swelling and edema are noted in the patient's right lower extremity. A superficial wound is noted on the right pretibial area. Dimensions are documented elsewhere. The wound appears to be much smaller in size. There is no obvious sign of infection or cellulitis. There is a small amount of bioburden and nonviable tissue present. Neuro oriented x3, CN's II-XII intact bilaterally, moves all extremities and no focal motor deficits Sensorium / Orientation: awake, alert, oriented to person, oriented to place and oriented to time Psych Appearance: grossly normal and appropriate Attitude: calm Activity / Motor Behavior: appropriate eye contact Speech: normal speech Mood & Affect: euthymic mood Thought Process: normal thought process Thought Content: normal thought content Attention / Concentration: attention grossly intact Debridement Note Debridement Note Wound debrided: Right pretibial wound Laterality: Right Type of Debridement: Excisional debridement Anesthesia Used: 5% Lidocaine Gel and Cetacaine Depth: Down to and including healthy tissue and in the subcutaneous layer Percentage of wound debrided: 100 Instrument Used: 5mm curette Tissue Removed: Bioburden Severity: Fat Layer Exposed Amount of bleeding with debridement: Mild Bleeding Controlled with: Compression and gauze Patient tolerated procedure: Patient tolerated procedure well Post-Debridement Measurements and Additional Note: Post-Debridement Measurements/Treatment ROSS - Nurse 1 - General Ulcer Assessment Start: 06/21/22 10:24 Freq: Status: Active Protocol: HAN Activity Type Activity Date Activity User E-sign Co-sign Detail Recorded Client Recorded Date Recorded By Document 06/21/22 10:24 AK [id number] 06/21/22 10:27 AK Document 06/28/22 10:34 DL [id number] 06/28/22 10:40 DL Document 07/05/22 10:37 KR [id number] 07/05/22 10:38 KR Document 07/12/22 09:50 DL [id number] 07/12/22 09:54 DL 06/21/22 06/28/22 07/05/22 10:24 10:34 10:37 - Today's Visit Information Type of service Follow-up Visit Follow-up Visit Follow-up Visit (Physician/APARTMENT MAINTENANCE (Physician/APARTMENT MAINTENANCE (Physician/APARTMENT MAINTENANCE ) ) ) Arrival Mode Ambulatory Ambulatory Ambulatory Transfer Assistance None Patient Identification Verified (Name & Yes Yes Yes ) Patient Requires Transmission-Based No No Precautions Safety Precautions NA Height and Weight Body Mass Index (BMI) 25.4 25.4 25.4 BMI Classification Overweight Overweight Overweight Vital Signs Temperature (97.8 F-99.1 F) 96.2 F L 96.8 F L 97.6 F L Temperature Source Temporal Temporal Temporal Pulse Rate (60-100) 69 75 68 Pulse Location Monitor Monitor Respiratory Rate (12-18) 20 H Respiratory rate source Observation Blood Pressure (90/60-120/80) 149/69 H 114/45 L 135/42 H Blood Pressure Mean 95 68 73 Source Monitor Monitor Monitor Position Sitting Blood Pressure Location Right Arm History Since Last Visit- (Skip if this is Patient's initial visit) Have you changed medications since your No No No last visit? Any new allergies or adverse reactions No No No Had a fall/change in ADL's that may No No No increase risk of falls Signs or symptoms of abuse and/or No No No neglect since last visit Have you been in the hospital since your No No No last visit? Has dressing in place as prescribed Yes Yes Yes Has compression in place as prescribed Yes Yes Yes Has offloadiing in place as prescribed N/A N/A Experienced any changes in pain level or No No No management Left Footwear Regular Shoe Regular Shoe Right Footwear Regular Shoe Regular Shoe Pain Scale: 0-10 Numeric Is Patient Pain Free? Yes Yes Yes 07/12/22 09:50 WC - Today's Visit Information Type of service Follow-up Visit (Physician/APARTMENT MAINTENANCE ) Arrival Mode Ambulatory Transfer Assistance None Patient Identification Verified (Name & Yes ) Patient Requires Transmission-Based No Precautions Safety Precautions Height and Weight Body Mass Index (BMI) 25.4 BMI Classification Overweight Vital Signs Temperature (97.8 F-99.1 F) 97.4 F L Temperature Source Temporal Pulse Rate (60-100) 67 Pulse Location Monitor Respiratory Rate (12-18) 18 Respiratory rate source Observation Blood Pressure (90/60-120/80) 122/62 H Blood Pressure Mean 82 Source Monitor Position Blood Pressure Location History Since Last Visit- (Skip if this is Patient's initial visit) Have you changed medications since your No last visit? Any new allergies or adverse reactions No Had a fall/change in ADL's that may No increase risk of falls Signs or symptoms of abuse and/or No neglect since last visit Have you been in the hospital since your No last visit? Has dressing in place as prescribed Yes Has compression in place as prescribed Yes Has offloadiing in place as prescribed N/A Experienced any changes in pain level or No management Left Footwear Right Footwear Pain Scale: 0-10 Numeric Is Patient Pain Free? Yes WC - Nurse 1 - General Ulcer Measurement Start: 06/21/22 10:24 Freq: Status: Active Protocol: Activity Type Activity Date Activity User E-sign Co-sign Detail Recorded Client Recorded Date Recorded By Document 06/21/22 10:24 AK [id number] 06/21/22 10:27 AK Document 06/28/22 10:34 DL [id number] 06/28/22 10:40 DL Document 07/05/22 10:37 KR [id number] 07/05/22 10:38 KR Document 07/12/22 09:50 DL [id number] 07/12/22 09:54 DL 06/21/22 06/28/22 07/05/22 10:24 10:34 10:37 Wound Center Nurse 1 #4 R Holt -Combined with other wound No -Current Size (cm) - Length 3.5 2.4 1.1 -Current Size (cm) - Width 3 1.4 1.2 -Current Size (cm) - Depth 0.1 0.1 0.1 -Total Square Cm 10.5 3.36 1.32 -Photo Taken No No -Tunneling No -Undermining/Tunneling No -Circular Undermining No -Change in Wound Grade/Stage No -Exudate Amt Small Small Small -Exudate Type Serosanguineous Serosanguineous Serosanguineous -Wound Margin Distinct, Distinct, Distinct, Outline Outline Outline Attached Attached Attached -Granulation Amt None Present (0 Large (67-100%) Small (1-33%) %) -Granulation Quality N/A [place] -Slough/Fibrin Yes -Necrosis Amt Small (1-33%) Small (1-33%) None Present (0 %) -Necrotic Tissue Type Adherent Slough -Structure Exposed N/A N/A -Texture (Ade-wound Skin Appearance) No Abnormality, Scarring Assessed, Assessed Scarring -Moisture (Ade-wound Skin Appearance) No Abnormality, Dry/Scaly No Abnormality, Assessed Assessed -Color (Ade-wound Skin Appearance) No Abnormality, Hemosiderin No Abnormality, Assessed Staining Assessed -Temperature (Aed-wound Skin No Abnormality No Abnormality No Abnormality Appearance) (Pt Warm) (Pt Warm) (Pt Warm) -Tenderness on Palpation (Ade-wound No No No Skin Appearance) -Ulcer Cleansing Soap and Water Rinsed/ Rinsed/ Irrigated with Irrigated with Saline Saline -Foul Odor after Cleansing No No No -Anesthetic Used 4% Lidocaine 5% Lidocaine 5% Lidocaine Solution Gel Gel Lower Limb Edema Present No Right Calf (cm) 36.2 36 39.1 Right Ankle (cm) 22.5 22 23.3 Left Calf (cm) 36 Left Ankle (cm) 21.8 07/12/22 09:50 Wound Center Nurse 1 #4 R Holt -Combined with other wound -Current Size (cm) - Length 0.9 -Current Size (cm) - Width 0.5 -Current Size (cm) - Depth 0.1 -Total Square Cm 0.45 -Photo Taken Yes -Tunneling -Undermining/Tunneling -Circular Undermining -Change in Wound Grade/Stage -Exudate Amt Small -Exudate Type Serosanguineous -Wound Margin Distinct, Outline Attached -Granulation Amt Large (67-100%) -Granulation Quality Red -Slough/Fibrin -Necrosis Amt Small (1-33%) -Necrotic Tissue Type Adherent Slough -Structure Exposed N/A -Texture (Ade-wound Skin Appearance) Scarring -Moisture (Ade-wound Skin Appearance) Dry/Scaly -Color (Ade-wound Skin Appearance) Hemosiderin Staining -Temperature (Ade-wound Skin No Abnormality Appearance) (Pt Warm) -Tenderness on Palpation (Ade-wound No Skin Appearance) -Ulcer Cleansing Rinsed/ Irrigated with Saline -Foul Odor after Cleansing No -Anesthetic Used 5% Lidocaine Gel Lower Limb Edema Present Right Calf (cm) Right Ankle (cm) Left Calf (cm) Left Ankle (cm) WC - Nurse 2 - General Ulcer CM Notes Start: 06/21/22 10:24 Freq: Status: Active Protocol: Activity Type Activity Date Activity User E-sign Co-sign Detail Recorded Client Recorded Date Recorded By Document 06/21/22 11:26 PL [id number] 06/21/22 11:27 PL Document 06/28/22 12:13 PL [id number] 06/28/22 12:14 PL Document 07/05/22 11:10 PL [id number] 07/05/22 11:11 PL Document 07/12/22 14:07 PL [id number] 07/12/22 14:08 PL 06/21/22 06/28/22 07/05/22 11:26 12:13 11:10 Wound Center Nurse 2 #4 R Holt -Time 09:59 10:50 10:44 -Correct Patient Yes Yes Yes -Correct Side, Site, Position Yes Yes Yes -Correct Procedure Yes Yes Yes -Procedure Performed Yes Yes Yes -Type of Procedure Debridement Debridement Debridement -Clinical Debridement Subcutaneous Subcutaneous Subcutaneous -Tissue Removed Subcutaneous Subcutaneous Subcutaneous -Post Debridement (cm) - Length 3.5 2.4 1.1 -Post Debridement (cm) - Width 2.0 1.4 1.2 -Post Debridement (cm) - Depth 0.1 0.1 0.1 -Total Square (Post) (cm) 7.00 3.36 1.32 -Area of Debridement (cm) - Length 3.5 2.4 1.1 -Area of Debridement (cm) - Width 2.0 1.4 1.2 -Total Square (Area) (cm) 7.00 3.36 1.32 -Tunneling No No No -Undermining/Tunneling No No No -Circular Undermining No No No -Wound/Ulcer Outcome Not Healed Not Healed Not Healed -Ulcer Cleansing Rinsed/ Rinsed/ Rinsed/ Irrigated with Irrigated with Irrigated with Saline Saline Saline -Foul Odor after Cleansing No No No -Bioengineered Tissue No No No -Bleeding Controlled with Pressure Pressure Pressure -Treatment Response Procedure Procedure Procedure Tolerated Well Tolerated Well Tolerated Well -Debridement - Subq, 1st 20sq cm Yes Yes Yes Pain Scale: 0-10 Numeric Is Patient Pain Free? Yes Yes Yes 07/12/22 14:07 Wound Center Nurse 2 #4 R Holt -Time 09:56 -Correct Patient Yes -Correct Side, Site, Position Yes -Correct Procedure Yes -Procedure Performed Yes -Type of Procedure Debridement -Clinical Debridement Subcutaneous -Tissue Removed Subcutaneous -Post Debridement (cm) - Length 1.0 -Post Debridement (cm) - Width 1.0 -Post Debridement (cm) - Depth 0.1 -Total Square (Post) (cm) 1.00 -Area of Debridement (cm) - Length 1.0 -Area of Debridement (cm) - Width 1.0 -Total Square (Area) (cm) 1.00 -Tunneling No -Undermining/Tunneling No -Circular Undermining No -Wound/Ulcer Outcome Not Healed -Ulcer Cleansing Rinsed/ Irrigated with Saline -Foul Odor after Cleansing No -Bioengineered Tissue No -Bleeding Controlled with Pressure -Treatment Response Procedure Tolerated Well -Debridement - Subq, 1st 20sq cm Yes Pain Scale: 0-10 Numeric Is Patient Pain Free? Yes WC - Nurse 3 - General Ulcer D/C NN Start: 06/21/22 10:24 Freq: Status: Active Protocol: Activity Type Activity Date Activity User E-sign Co-sign Detail Recorded Client Recorded Date Recorded By Document 06/21/22 10:24 AK [id number] 06/21/22 10:27 AK Document 06/28/22 13:22 KR [id number] 06/28/22 13:22 KR Document 07/05/22 11:03 KR [id number] 07/05/22 11:04 KR Document 07/12/22 10:21 DL [id number] 07/12/22 10:22 DL Document 07/12/22 11:48 DL [id number] 07/12/22 11:50 DL 06/21/22 06/28/22 07/05/22 10:24 13:22 11:03 Vital Signs Temperature (97.8 F-99.1 F) 96.2 F L Temperature Source Temporal Pulse Rate (60-100) 69 Blood Pressure (90/60-120/80) 149/69 H Blood Pressure Mean 95 Source Monitor Pain Scale: 0-10 Numeric Is Patient Pain Free? Yes Yes Yes Wound Care Nurse 3 #4 R Holt -Ulcer Cleansing Rinsed/ Rinsed/ Rinsed/ Irrigated with Irrigated with Irrigated with Saline Saline Saline -Foul Odor after Cleansing No -Negative Pressure Wound Therapy N/A -Primary Dressing Applied Promogran Promogran Promogran -Primary Dressing Covered/Secured with Dry Gauze & Dry Gauze,Dry Roll Gauze, Gauze & Roll Secured with Gauze,Secured Tape with Tape -Promogran 2 2 1 Right -Tubular Bandage Single Layer -Size of Tubigrip Used Size D -Size D ($) 1 -Stockings No -Other Treatment Response WC - Visit Discharge Discharge Condition Stable Stable Stable Ambulatory Status Ambulatory Ambulatory Ambulatory Transportation Private Auto Private Auto Private Auto Medication Reconcilliation completed & Yes provided to patient/care provider Clinical Summary of Care Provided Yes 07/12/22 07/12/22 10:21 11:48 Vital Signs Temperature (97.8 F-99.1 F) Temperature Source Pulse Rate (60-100) Blood Pressure (90/60-120/80) Blood Pressure Mean Source Pain Scale: 0-10 Numeric Is Patient Pain Free? Yes Yes Wound Care Nurse 3 #4 R Holt -Ulcer Cleansing Rinsed/ Not Cleansed Irrigated with Saline -Foul Odor after Cleansing No -Negative Pressure Wound Therapy -Primary Dressing Applied C Hydrogel ($) C Hydrogel ($) -Primary Dressing Covered/Secured with Dry Gauze & Dry Gauze & Roll Gauze, Roll Gauze, Secured with Secured with Tape Tape -Promogran Right -Tubular Bandage -Size of Tubigrip Used -Size D ($) -Stockings -Other tubigrip tubigrip Treatment Response Procedure Procedure Tolerated Well Tolerated Well WC - Visit Discharge Discharge Condition Stable Stable Ambulatory Status Ambulatory Ambulatory Transportation Private Auto Private Auto Medication Reconcilliation completed & provided to patient/care provider Clinical Summary of Care Provided Assessment/Plan Assessment/Plan (1) Leg wound, right: CODE(S): S81.801A - Unspecified open wound, right lower leg, initial encounter QUALIFIERS: Encounter type: subsequent encounter Qualified Code(s): S81.801D - Unspecified open wound, right lower leg, subsequent encounter (2) Puncture wound without foreign body, right lower leg, subsequent encounter: CODE(S): S81.831D - Puncture wound without foreign body, right lower leg, subsequent encounter (3) Cellulitis of right leg: CODE(S): L03.115 - Cellulitis of right lower limb (4) Chronic venous insufficiency: CODE(S): I87.2 - Venous insufficiency (chronic) (peripheral) (5) Hypertension: CODE(S): I10 - Essential (primary) hypertension QUALIFIERS: Hypertension type: essential hypertension Qualified Code(s): I10 - Essential (primary) hypertension (6) Congestive heart failure: CODE(S): I50.9 - Heart failure, unspecified QUALIFIERS: Heart failure type: unspecified Heart failure chronicity: chronic Qualified Code(s): I50.9 - Heart failure, unspecified (7) CAD (coronary artery disease): CODE(S): I25.10 - Atherosclerotic heart disease of [place] coronary artery without angina pectoris QUALIFIERS: Coronary Disease-Associated Artery/Lesion type: unspecified vessel or lesion type Associated angina: angina presence unspecified (8) Asthma: CODE(S): J45.909 - Unspecified asthma, uncomplicated QUALIFIERS: Asthma severity: unspecified severity (9) GERD (gastroesophageal reflux disease): CODE(S): K21.9 - Gastro-esophageal reflux disease without esophagitis QUALIFIERS: Esophagitis presence: esophagitis presence not specified Qualified Code(s): K21.9 - Gastro-esophageal reflux disease without esophagitis (10) Stage III chronic kidney disease: CODE(S): N18.3 - Chronic kidney disease, stage 3 (moderate) (11) PVD (peripheral vascular disease): CODE(S): I73.9 - Peripheral vascular disease, unspecified (12) History of deep vein thrombosis: CODE(S): Z86.718 - Personal history of other venous thrombosis and embolism (13) History of endometrial cancer: CODE(S): Z85.42 - Personal history of malignant neoplasm of other parts of uterus (14) History of gastrointestinal bleeding: CODE(S): Z87.19 - Personal history of other diseases of the digestive system (15) History of breast cancer: CODE(S): Z85.3 - Personal history of malignant neoplasm of breast (16) History of CVA (cerebrovascular accident): CODE(S): Z86.73 - Personal history of transient ischemic attack (TIA), and cerebral infarction without residual deficits (17) Osteoporosis: CODE(S): M81.0 - Age-related osteoporosis without current pathological fracture (18) History of myocardial infarction: CODE(S): I25.2 - Old myocardial infarction (19) History of bilateral mastectomy: CODE(S): Z90.13 - Acquired absence of bilateral breasts and nipples (20) H/O bilateral oophorectomy: CODE(S): Z90.722 - Acquired absence of ovaries, bilateral (21) History of cholecystectomy: CODE(S): Z90.49 - Acquired absence of other specified parts of digestive tract (22) History of colon surgery: CODE(S): Z98.890 - Other specified postprocedural states (23) History of hysterectomy: CODE(S): Z90.710 - Acquired absence of both cervix and uterus (24) Gout: CODE(S): M10.9 - Gout, unspecified PLAN: Plan This is an 81-year-old female who is active and functional. She sustained trauma to the right pretibial surface on May 19, 2022. She presented with a wound and recent cellulitis, with a culture which has been recently positive for Pseudomonas aeruginosa and Serratia marcescens. She was in the midst of a prescription for Levaquin, which appeared appropriate to the sensitivity results of her recent culture. The Levaquin prescription has been completed. She had been recently using Bactroban topically and Tubigrip's. We have implemented conservative treatment measures to minimize swelling to the right lower extremity. This includes leg elevation, with legs elevated to heart level, or higher. This is to be accomplished as much as possible. Prolonged idle sitting has been discouraged. Activity has been encouraged. We are to transition to the use of collagen hydrogel which will be applied topically on a daily basis, covered with gauze. The patient is to continue the use of Tubigrip's of 20 to 30 mmHg compression. Her appetite is said to be good, and nutritional optimization has been discussed. The patient is to follow-up on an outpatient basis in approximately 2 weeks. Total time: 28 minutes
== END 2022-07-18 23:59 | disposition home or self-care (01) ==
LOC: WC 09:45
PROVIDERS: PCP Family Medicine; Visit Provider Surgery
DX: L03.115 Cellulitis of right lower limb (principal); I50.9 Heart failure, unspecified; I13.0 Hypertensive heart and chronic kidney disease with heart failure and stage 1 through stage 4 chronic kidney disease, or unspecified chronic kidney disease; I73.9 Peripheral vascular disease, unspecified; N18.30 Chronic kidney disease, stage 3 unspecified; Z90.13 Acquired absence of bilateral breasts and nipples; J45.909 Unspecified asthma, uncomplicated; Z79.02 Long term (current) use of antithrombotics/antiplatelets; I87.2 Venous insufficiency (chronic) (peripheral); K21.9 Gastro-esophageal reflux disease without esophagitis; Z90.722 Acquired absence of ovaries, bilateral; M10.9 Gout, unspecified; I25.10 Atherosclerotic heart disease of native coronary artery without angina pectoris; M81.0 Age-related osteoporosis without current pathological fracture; Z79.82 Long term (current) use of aspirin; Z90.710 Acquired absence of both cervix and uterus; B96.5 Pseudomonas (aeruginosa) (mallei) (pseudomallei) as the cause of diseases classified elsewhere; Z79.1 Long term (current) use of non-steroidal anti-inflammatories (NSAID); S81.831D Puncture wound without foreign body, right lower leg, subsequent encounter; S81.801D Unspecified open wound, right lower leg, subsequent encounter; Z86.73 Personal history of transient ischemic attack (TIA), and cerebral infarction without residual deficits; Z86.718 Personal history of other venous thrombosis and embolism; Z85.42 Personal history of malignant neoplasm of other parts of uterus; Z87.19 Personal history of other diseases of the digestive system; Z85.3 Personal history of malignant neoplasm of breast; I25.2 Old myocardial infarction
CPT/HCPCS: 11042

== ENCOUNTER 2022-08-09 09:45 | Outpatient (RCR) | payer MEDICARE, SELFPAY ==
[2022-07-19 00:36] VITALS: BP 122/62; PULSE 67; RESP 18; TEMP 36.3; BMI 25.4
[2022-07-26 09:45] VITALS: BP 121/45; PULSE 71; RESP 16; TEMP 35.7; BMI 25.4
--- NOTE | 2022-07-26 10:20 | HP.PCM_ITS ---
History of Present Illness Date of Service: 07/26/22 Chief Complaint: Traumatic wound of the right lower extremity History of Wound: This is an 81-year-old female who presented with an open wound on the pretibial area of the right lower extremity, the result of recent trauma. On May 19, the patient stated a log rolled on me. She sustained trauma to the right pretibial area, resulting in an open wound. She presented to the emergency department on May 24, 2022, where she was prescribed Keflex 500 mg p.o. 3 times daily for 7 days. She has also been using Bactroban topically, and Tubigrip's for compression. It is noted that the patient underwent a noninvasive lower extremity arterial study approximately 1 year ago, where arterial perfusion in the right lower extremity was noted to be normal. Patient has multiple pre-existing medical conditions, which are listed below. A wound culture performed on May 27, 2022, was positive for Pseudomonas aeruginosa and Serratia marcescens. As result of these cultures, and according to sensitivity results, the patient was placed on Levaquin, which continued until the patient's initial appointment. The patient is functional for her age, and is said to have a good appetite. [facility] Medical History Bilateral lower extremity edema Broken heart syndrome Cellulitis of right leg Chronic venous insufficiency Congestive heart failure DVT (deep venous thrombosis) Endometrial cancer GI bleed Gout History of breast cancer History of breast cancer History of CVA (cerebrovascular accident) History of deep vein thrombosis History of endometrial cancer History of gastrointestinal bleeding History of myocardial infarction History of stroke Hypertension Kidney disease Kidney stones Laceration without foreign body, right lower leg, sequela Leg wound, right Myocardial infarction Osteoporosis Osteoporosis Puncture wound without foreign body, right lower leg, subsequent encounter PVD (peripheral vascular disease) Seizures Stroke/cerebrovascular accident Traumatic hematoma of right lower leg Venous ulcer of right lower extremity with varicose veins Home Medications albuterol sulfate 90 mcg/actuation aerosol inhaler 2 puff inhalation Q4H PRN PRN Shortness Of Breath 03/20/15 [History Last Taken 11/30/20] aspirin 81 mg chewable tablet 81 mg PO QHS heart health/stroke 03/20/15 [History Last Taken 12/01/20] montelukast 10 mg tablet 10 mg PO QHS asthma 03/20/15 [History Last Taken 12/01/20] spironolactone 25 mg tablet 25 mg PO DAILY water pill 03/20/15 [History Last Taken 12/01/20] torsemide 20 mg tablet 10 mg PO DAILY water pill 03/20/15 [History Last Taken 12/01/20] omeprazole 40 mg capsule,delayed release 40 mg PO PRN PRN stomach 06/14/19 [History Last Taken 12/02/20] losartan 25 mg tablet 12.5 - 25 mg PO DAILY BP 12/02/20 [History Last Taken 12/01/20] budesonide-formoterol HFA 160 mcg-4.5 mcg/actuation aerosol inhaler 2 puff inhalation BID breathing 02/25/21 [History Last Taken Unknown] nitrofurantoin macrocrystal 100 mg capsule (Macrodantin) 100 mg PO .PRN #20 caps 08/20/21 [Rx Last Taken Unknown] clopidogrel 75 mg tablet 1 tab PO DAILY 04/09/22 [History Last Taken Unknown] febuxostat 40 mg tablet 1 tab PO DAILY 04/09/22 [History Last Taken Unknown] albuterol sulfate 2.5 mg/3 mL (0.083 %) solution for nebulization 2.5 mg (3 mL) inhalation Q4H PRN #25 vials 04/18/22 [Rx Last Taken Unknown] cephalexin 500 mg capsule 500 mg PO TID #21 CAPSULES 05/24/22 [Rx Last Taken Unknown] Allergy/AdvReac Type Severity Reaction Status Date / Time diazepam [From Valium] Allergy seizures Verified 06/07/22 09:34 diphenhydramine HCl Allergy difficulty Verified 06/07/22 09:34 [From Benadryl] breathing esomeprazole magnesium Allergy chest pain Verified 06/07/22 09:34 [From Nexium] NSAIDS (Non-Steroidal Allergy Other Verified 06/07/22 09:34 Anti-Inflamma pegloticase [From Krystexxa] Allergy Other Verified 06/07/22 09:37 Penicillins Allergy Rash Verified 06/07/22 09:34 pentazocine lactate Allergy quit Verified 06/07/22 09:34 [From Talwin] breathing Sulfa (Sulfonamide Allergy Rash Verified 06/07/22 09:34 Antibiotics) sulfur dioxide Allergy massive Verified 06/07/22 09:34 headaches Family History Mother Cancer stomach throat Thyroid disorder Father Heart disease Surgical History H/O bilateral mastectomy H/O bilateral oophorectomy H/O bilateral oophorectomy H/O dilation and curettage History of bilateral mastectomy History of cholecystectomy History of cholecystectomy History of colon surgery History of colon surgery History of hysterectomy S/P RAFIA (total abdominal hysterectomy) Social History Smoking Status: Never smoker alcohol intake: never substance use type: does not use caffeine: Yes what type of physical activity do you participate in: walking and bicycling frequency: daily seatbelt use: always do you feel safe at home: Yes additional social history: Kade Both are retired Vital Signs Vital Signs Vital Signs: 07/26/22 09:45 Temperature 96.3 F L Temperature Source Temporal Pulse Rate 71 Respiratory Rate 16 Blood Pressure 121/45 H Blood Pressure Mean 70 Blood Pressure Source Monitor Blood Pressure Position Sitting Blood Pressure Location Right Arm Oxygen Delivery Method Room Air Weight Weight: 134 lb 6.711 oz Body Mass Index (BMI) 25.4 Physical Exam Const alert, oriented x3, no apparent distress, average body habitus and well nourished General Appearance: cooperative, comfortable, well kempt and well developed Orientation / Consciousness: awake, oriented to person, oriented to place and oriented to time HEENT normocephalic, head/scalp atraumatic and hearing grossly normal bilaterally Head and Scalp: normal to inspection, normocephalic and atraumatic External Ear: external ears normal Eyes PERRL and EOMs intact bilaterally General Eye: normal appearance of both eyes Resp normal respiratory effort, normal air movement, no retractions and no use of accessory muscles Effort and Inspection: able to speak in complete sentences Extremity no calf tenderness General Extremity: Negative for clubbing or cyanosis Skin Wound Narrative: No significant swelling or edema are noted in the patient's right lower extremity. A superficial wound is noted on the right pretibial area. Dimens ions are documented elsewhere. The wound appears to be much smaller in size. There is no obvious sign of infection or cellulitis. There is a small amount of bioburden and nonviable tissue present. Neuro oriented x3, CN's II-XII intact bilaterally, moves all extremities and no focal motor deficits Sensorium / Orientation: awake, alert, oriented to person, oriented to place and oriented to time Psych Appearance: grossly normal and appropriate Attitude: calm Activity / Motor Behavior: appropriate eye contact Speech: normal speech Mood & Affect: euthymic mood Thought Process: normal thought process Thought Content: normal thought content Attention / Concentration: attention grossly intact Debridement Note Debridement Note Wound debrided: Right pretibial wound Laterality: Right Type of Debridement: Excisional debridement Anesthesia Used: 5% Lidocaine Gel and Cetacaine Depth: Down to and including healthy tissue and in the subcutaneous layer Percentage of wound debrided: 100 Instrument Used: 5mm curette Tissue Removed: Bioburden Severity: Fat Layer Exposed Amount of bleeding with debridement: Mild Bleeding Controlled with: Compression and gauze Patient tolerated procedure: Patient tolerated procedure well Post-Debridement Measurements and Additional Note: Post-Debridement Measurements/Treatment - Nurse 1 - General Ulcer Assessment Start: 07/26/22 09:45 Freq: Status: Active Protocol: HAN Activity Type Activity Date Activity User E-sign Co-sign Detail Recorded Client Recorded Date Recorded By Document 07/26/22 09:45 MW [id number] 07/26/22 09:50 MW 07/26/22 09:45 - Today's Visit Information Type of service Follow-up Visit (Physician/[employer] ADVISOR ) Arrival Mode Ambulatory Transfer Assistance None Accompanied by self Patient Identification Verified (Name & Yes ) Patient Requires Transmission-Based No Precautions Safety Precautions NA Height and Weight Body Mass Index (BMI) 25.4 BMI Classification Overweight Vital Signs Temperature (97.8 F-99.1 F) 96.3 F L Temperature Source Temporal Pulse Rate (60-100) 71 Pulse Location Monitor Respiratory Rate (12-18) 16 Respiratory rate source Observation Oxygen Delivery Method Room Air Blood Pressure (90/60-120/80) 121/45 H Blood Pressure Mean 70 Source Monitor Position Sitting Blood Pressure Location Right Arm History Since Last Visit- (Skip if this is Patient's initial visit) Have you changed medications since your No last visit? Any new allergies or adverse reactions No Had a fall/change in ADL's that may No increase risk of falls Signs or symptoms of abuse and/or No neglect since last visit Have you been in the hospital since your No last visit? Has dressing in place as prescribed Yes Has compression in place as prescribed Yes Has offloadiing in place as prescribed N/A Experienced any changes in pain level or No management Left Footwear Regular Shoe Right Footwear Regular Shoe Pain Scale: 0-10 Numeric Is Patient Pain Free? Yes ROSS - Nurse 1 - General Ulcer Measurement Start: 07/26/22 09:45 Freq: Status: Active Protocol: Activity Type Activity Date Activity User E-sign Co-sign Detail Recorded Client Recorded Date Recorded By Document 07/26/22 09:45 MW [id number] 07/26/22 09:50 MW 07/26/22 09:45 Wound Center Nurse 1 #4 R Holt -Combined with other wound No -Current Size (cm) - Length 1.0 -Current Size (cm) - Width 0.5 -Current Size (cm) - Depth 0.1 -Total Square Cm 0.50 -Date of Last Picture (Recall this 07/26/22 field) -Photo Taken Yes -Epithelialization None Present -Tunneling No -Undermining/Tunneling No -Circular Undermining No -Exudate Amt Small -Exudate Type Serosanguineous -Wound Margin Flat & Intact -Granulation Amt None Present (0 %) -Granulation Quality N/A -Slough/Fibrin Yes -Necrosis Amt Large (67-100%) -Necrotic Tissue Type Adherent Slough -Structure Exposed N/A -Texture (Ade-wound Skin Appearance) Assessed, Localized Edema ,Scarring -Moisture (Ade-wound Skin Appearance) Assessed,Dry/ Scaly -Color (Ade-wound Skin Appearance) No Abnormality, Assessed -Temperature (Ade-wound Skin No Abnormality Appearance) (Pt Warm) -Tenderness on Palpation (Ade-wound No Skin Appearance) -Ulcer Cleansing Rinsed/ Irrigated with Saline -Foul Odor after Cleansing No -Anesthetic Used 5% Lidocaine Gel Lower Limb Edema Present Yes Right Calf (cm) 36.5 Right Ankle (cm) 22.5 ROSS - Nurse 3 - General Ulcer D/C NN Start: 07/26/22 09:45 Freq: Status: Active Protocol: Activity Type Activity Date Activity User E-sign Co-sign Detail Recorded Client Recorded Date Recorded By Document 07/26/22 10:12 MW [id number] 07/26/22 10:13 MW 07/26/22 10:12 Wound Care Nurse 3 #4 R Holt -Ulcer Cleansing Rinsed/ Irrigated with Saline -Foul Odor after Cleansing No -Negative Pressure Wound Therapy N/A -Primary Dressing Applied C Hydrogel ($) -Primary Dressing Covered/Secured with Dry Gauze & Roll Gauze, Secured with Tape Treatment Response Procedure Tolerated Well Pain Scale: 0-10 Numeric Is Patient Pain Free? Yes Teaching: Wound Center Dressing Your Wound -Person Taught Patient -Teaching Method Discussion -Response to teaching Verbalize understanding WC - Visit Discharge Discharge Condition Stable Ambulatory Status Ambulatory Transportation Private Auto Accompanied by self Medication Reconcilliation completed & No provided to patient/care provider Clinical Summary of Care Provided Yes Assessment/Plan Assessment/Plan (1) Leg wound, right: CODE(S): S81.801A - Unspecified open wound, right lower leg, initial encounter QUALIFIERS: Encounter type: subsequent encounter Qualified Code(s): S81.801D - Unspecified open wound, right lower leg, subsequent en counter (2) Puncture wound without foreign body, right lower leg, subsequent encounter: CODE(S): S81.831D - Puncture wound without foreign body, right lower leg, subsequent encounter (3) Cellulitis of right leg: CODE(S): L03.115 - Cellulitis of right lower limb (4) Chronic venous insufficiency: CODE(S): I87.2 - Venous insufficiency (chronic) (peripheral) (5) Hypertension: CODE(S): I10 - Essential (primary) hypertension QUALIFIERS: Hypertension type: essential hypertension Qualified Code(s): I10 - Essential (primary) hypertension (6) Congestive heart failure: CODE(S): I50.9 - Heart failure, unspecified QUALIFIERS: Heart failure type: unspecified Heart failure chronicity: chronic Qualified Code(s): I50.9 - Heart failure, unspecified (7) CAD (coronary artery disease): CODE(S): I25.10 - Atherosclerotic heart disease of [place] coronary artery without angina pectoris QUALIFIERS: Coronary Disease-Associated Artery/Lesion type: unspecified vessel or lesion type Associated angina: angina presence unspecified (8) Asthma: CODE(S): J45.909 - Unspecified asthma, uncomplicated QUALIFIERS: Asthma severity: unspecified severity (9) GERD (gastroesophageal reflux disease): CODE(S): K21.9 - Gastro-esophageal reflux disease without esophagitis QUALIFIERS: Esophagitis presence: esophagitis presence not specified Qualified Code(s): K21.9 - Gastro-esophageal reflux disease without esophagitis (10) Stage III chronic kidney disease: CODE(S): N18.3 - Chronic kidney disease, stage 3 (moderate) (11) PVD (peripheral vascular disease): CODE(S): I73.9 - Peripheral vascular disease, unspecified (12) History of deep vein thrombosis: CODE(S): Z86.718 - Personal history of other venous thrombosis and embolism (13) History of endometrial cancer: CODE(S): Z85.42 - Personal history of malignant neoplasm of other parts of uterus (14) History of gastrointestinal bleeding: CODE(S): Z87.19 - Personal history of other diseases of the digestive system (15) History of breast cancer: CODE(S): Z85.3 - Personal history of malignant neoplasm of breast (16) History of CVA (cerebrovascular accident): CODE(S): Z86.73 - Personal history of transient ischemic attack (TIA), and cerebral infarction without residual deficits (17) Osteoporosis: CODE(S): M81.0 - Age-related osteoporosis without current pathological fracture (18) History of myocardial infarction: CODE(S): I25.2 - Old myocardial infarction (19) History of bilateral mastectomy: CODE(S): Z90.13 - Acquired absence of bilateral breasts and nipples (20) H/O bilateral oophorectomy: CODE(S): Z90.722 - Acquired absence of ovaries, bilateral (21) History of cholecystectomy: CODE(S): Z90.49 - Acquired absence of other specified parts of digestive tract (22) History of colon surgery: CODE(S): Z98.890 - Other specified postprocedural states (23) History of hysterectomy: CODE(S): Z90.710 - Acquired absence of both cervix and uterus (24) Gout: CODE(S): M10.9 - Gout, unspecified PLAN: Plan This is an 81-year-old female who is active and functional. She sustained trauma to the right pretibial surface on May 19, 2022. She presented with a wound and recent cellulitis, with a culture which has been recently positive for Pseudomonas aeruginosa and Serratia marcescens. She was in the midst of a prescription for Levaquin, which appeared appropriate to the sensitivity results of her recent culture. The Levaquin prescription has been completed. She had been recently using Bactroban topically and Tubigrip's. We have implemented conservative treatment measures to minimize swelling to the right lower extremity. This includes leg elevation, with legs elevated to heart level, or higher. This is to be accomplished as much as possible. Prolonged idle sitting has been discouraged. Activity has been encouraged. We are to continue the use of collagen hydrogel which will be applied topically on a daily basis, covered with gauze. The patient is to continue the use of Tubigrip's of 20 to 30 mmHg compression. Her appetite is said to be good, and nutritional optimization has been discussed. The patient is to follow-up on an outpatient basis in approximately 2 weeks. Total time: 29 minutes
[2022-08-09 13:21] VITALS: BP 123/35; PULSE 69; TEMP 36.1; BMI 25.4
--- NOTE | 2022-08-09 14:06 | HP.PCM_ITS ---
History of Present Illness Date of Service: 08/09/22 Chief Complaint: Traumatic wound of the right lower extremity History of Wound: This is an 81-year-old female who presented with an open wound on the pretibial area of the right lower extremity, the result of recent trauma. On May 19, the patient stated a log rolled on me. She sustained trauma to the right pretibial area, resulting in an open wound. She presented to the emergency department on May 24, 2022, where she was prescribed Keflex 500 mg p.o. 3 times daily for 7 days. She has also been using Bactroban topically, and Tubigrip's for compression. It is noted that the patient underwent a noninvasive lower extremity arterial study approximately 1 year ago, where arterial perfusion in the right lower extremity was noted to be normal. Patient has multiple pre-existing medical conditions, which are listed below. A wound culture performed on May 27, 2022, was positive for Pseudomonas aeruginosa and Serratia marcescens. As result of these cultures, and according to sensitivity results, the patient was placed on Levaquin, which continued until the patient's initial appointment. The patient is functional for her age, and is said to have a good appetite. [facility] Medical History Bilateral lower extremity edema Broken heart syndrome Cellulitis of right leg Chronic venous insufficiency Congestive heart failure DVT (deep venous thrombosis) Endometrial cancer GI bleed Gout History of breast cancer History of breast cancer History of CVA (cerebrovascular accident) History of deep vein thrombosis History of endometrial cancer History of gastrointestinal bleeding History of myocardial infarction History of stroke Hypertension Kidney disease Kidney stones Laceration without foreign body, right lower leg, sequela Leg wound, right Myocardial infarction Osteoporosis Osteoporosis Puncture wound without foreign body, right lower leg, subsequent encounter PVD (peripheral vascular disease) Seizures Stroke/cerebrovascular accident Traumatic hematoma of right lower leg Venous ulcer of right lower extremity with varicose veins Home Medications albuterol sulfate 90 mcg/actuation aerosol inhaler 2 puff inhalation Q4H PRN PRN Shortness Of Breath 03/20/15 [History Last Taken 11/30/20] aspirin 81 mg chewable tablet 81 mg PO QHS heart health/stroke 03/20/15 [History Last Taken 12/01/20] montelukast 10 mg tablet 10 mg PO QHS asthma 03/20/15 [History Last Taken 12/01/20] spironolactone 25 mg tablet 25 mg PO DAILY water pill 03/20/15 [History Last Taken 12/01/20] torsemide 20 mg tablet 10 mg PO DAILY water pill 03/20/15 [History Last Taken 12/01/20] omeprazole 40 mg capsule,delayed release 40 mg PO PRN PRN stomach 06/14/19 [History Last Taken 12/02/20] losartan 25 mg tablet 12.5 - 25 mg PO DAILY BP 12/02/20 [History Last Taken 12/01/20] budesonide-formoterol HFA 160 mcg-4.5 mcg/actuation aerosol inhaler 2 puff inhalation BID breathing 02/25/21 [History Last Taken Unknown] nitrofurantoin macrocrystal 100 mg capsule (Macrodantin) 100 mg PO .PRN #20 caps 08/20/21 [Rx Last Taken Unknown] clopidogrel 75 mg tablet 1 tab PO DAILY 04/09/22 [History Last Taken Unknown] febuxostat 40 mg tablet 1 tab PO DAILY 04/09/22 [History Last Taken Unknown] albuterol sulfate 2.5 mg/3 mL (0.083 %) solution for nebulization 2.5 mg (3 mL) inhalation Q4H PRN #25 vials 04/18/22 [Rx Last Taken Unknown] cephalexin 500 mg capsule 500 mg PO TID #21 CAPSULES 05/24/22 [Rx Last Taken Unknown] Allergy/AdvReac Type Severity Reaction Status Date / Time diazepam [From Valium] Allergy seizures Verified 06/07/22 09:34 diphenhydramine HCl Allergy difficulty Verified 06/07/22 09:34 [From Benadryl] breathing esomeprazole magnesium Allergy chest pain Verified 06/07/22 09:34 [From Nexium] NSAIDS (Non-Steroidal Allergy Other Verified 06/07/22 09:34 Anti-Inflamma pegloticase [From Krystexxa] Allergy Other Verified 06/07/22 09:37 Penicillins Allergy Rash Verified 06/07/22 09:34 pentazocine lactate Allergy quit Verified 06/07/22 09:34 [From Talwin] breathing Sulfa (Sulfonamide Allergy Rash Verified 06/07/22 09:34 Antibiotics) sulfur dioxide Allergy massive Verified 06/07/22 09:34 headaches Family History Mother Cancer stomach throat Thyroid disorder Father Heart disease Surgical History H/O bilateral mastectomy H/O bilateral oophorectomy H/O bilateral oophorectomy H/O dilation and curettage History of bilateral mastectomy History of cholecystectomy History of cholecystectomy History of colon surgery History of colon surgery History of hysterectomy S/P RAFIA (total abdominal hysterectomy) Social History Smoking Status: Never smoker alcohol intake: never substance use type: does not use caffeine: Yes what type of physical activity do you participate in: walking and bicycling frequency: daily seatbelt use: always do you feel safe at home: Yes additional social history: Russell- Both are retired Vital Signs Vital Signs Vital Signs: 08/09/22 13:21 Temperature 96.9 F L Temperature Source Temporal Pulse Rate 69 Blood Pressure 123/35 H Blood Pressure Mean 64 Blood Pressure Source Monitor Weight Weight: 134 lb 6.711 oz Body Mass Index (BMI) 25.4 Physical Exam Const alert, oriented x3, no apparent distress, average body habitus and well nourished General Appearance: cooperative, comfortable, well kempt and well developed Orientation / Consciousness: awake, oriented to person, oriented to place and oriented to time HEENT normocephalic, head/scalp atraumatic and hearing grossly normal bilaterally Head and Scalp: normal to inspection, normocephalic and atraumatic External Ear: external ears normal Eyes PERRL and EOMs intact bilaterally General Eye: normal appearance of both eyes Resp normal respiratory effort, normal air movement, no retractions and no use of accessory muscles Effort and Inspection: able to speak in complete sentences Extremity no calf tenderness General Extremity: Negative for clubbing or cyanosis Skin Wound Narrative: No significant swelling or edema are noted in the patient's right lower ext remity. A superficial wound is noted on the right pretibial area. Dimensions are documented elsewhere. The wound appears to be much smaller in size. There is no obvious sign of infection or cellulitis. There is a small amount of bioburden and nonviable tissue present. Neuro oriented x3, CN's II-XII intact bilaterally, moves all extremities and no focal motor deficits Sensorium / Orientation: awake, alert, oriented to person, oriented to place and oriented to time Psych Appearance: grossly normal and appropriate Attitude: calm Activity / Motor Behavior: appropriate eye contact Speech: normal speech Mood & Affect: euthymic mood Thought Process: normal thought process Thought Content: normal thought content Attention / Concentration: attention grossly intact Debridement Note Debridement Note Wound debrided: Right pretibial wound Laterality: Right Type of Debridement: Excisional debridement Anesthesia Used: 5% Lidocaine Gel and Cetacaine Depth: Down to and including healthy tissue and in the subcutaneous layer Percentage of wound debrided: 100 Instrument Used: 5mm curette Tissue Removed: Bioburden Severity: Fat Layer Exposed Amount of bleeding with debridement: Mild Bleeding Controlled with: Compression and gauze Patient tolerated procedure: Patient tolerated procedure well Post-Debridement Measurements and Additional Note: Post-Debridement Measurements/Treatment - Nurse 1 - General Ulcer Assessment Start: 07/26/22 09:45 Freq: Status: Active Protocol: HAN Activity Type Activity Date Activity User E-sign Co-sign Detail Recorded Client Recorded Date Recorded By Document 07/26/22 09:45 MW [id number] 07/26/22 09:50 MW Document 08/09/22 13:21 KR [id number] 08/09/22 13:27 KR 07/26/22 08/09/22 09:45 13:21 - Today's Visit Information Type of service Follow-up Visit Follow-up Visit (Physician/FLIGHT SERVICE SPECIALIST (Physician/FLIGHT SERVICE SPECIALIST ) ) Arrival Mode Ambulatory Ambulatory Transfer Assistance None Accompanied by self Patient Identification Verified (Name & Yes Yes ) Patient Requires Transmission-Based No No Precautions Safety Precautions NA Height and Weight Body Mass Index (BMI) 25.4 25.4 BMI Classification Overweight Overweight Vital Signs Temperature (97.8 F-99.1 F) 96.3 F L 96.9 F L Temperature Source Temporal Temporal Pulse Rate (60-100) 71 69 Pulse Location Monitor Monitor Respiratory Rate (12-18) 16 Respiratory rate source Observation Oxygen Delivery Method Room Air Blood Pressure (90/60-120/80) 121/45 H 123/35 H Blood Pressure Mean 70 64 Source Monitor Monitor Position Sitting Blood Pressure Location Right Arm History Since Last Visit- (Skip if this is Patient's initial visit) Have you changed medications since your No No last visit? Any new allergies or adverse reactions No No Had a fall/change in ADL's that may No No increase risk of falls Signs or symptoms of abuse and/or No No neglect since last visit Have you been in the hospital since your No No last visit? Has dressing in place as prescribed Yes Yes Has compression in place as prescribed Yes N/A Has offloadiing in place as prescribed N/A N/A Experienced any changes in pain level or No No management Left Footwear Regular Shoe Regular Shoe Right Footwear Regular Shoe Regular Shoe Pain Scale: 0-10 Numeric Is Patient Pain Free? Yes No WC - Nurse 1 - General Ulcer Measurement Start: 07/26/22 09:45 Freq: Status: Active Protocol: Activity Type Activity Date Activity User E-sign Co-sign Detail Recorded Client Recorded Date Recorded By Document 07/26/22 09:45 MW [id number] 07/26/22 09:50 MW Document 08/09/22 13:21 KR [id number] 08/09/22 13:27 KR 07/26/22 08/09/22 09:45 13:21 Wound Center Nurse 1 #4 R Holt -Combined with other wound No No -Current Size (cm) - Length 1.0 9.2 -Current Size (cm) - Width 0.5 14.1 -Current Size (cm) - Depth 0.1 0.1 -Total Square Cm 0.50 129.72 -Date of Last Picture (Recall this 07/26/22 field) -Photo Taken Yes Yes -Epithelialization None Present -Tunneling No No -Undermining/Tunneling No No -Circular Undermining No No -Change in Wound Grade/Stage No -Exudate Amt Small Medium -Exudate Type Serosanguineous Serosanguineous -Wound Margin Flat & Intact Distinct, Outline Attached -Granulation Amt None Present (0 Large (67-100%) %) -Granulation Quality N/A Red -Slough/Fibrin Yes Yes -Necrosis Amt Large (67-100%) Large (67-100%) -Necrotic Tissue Type Adherent Slough Adherent Slough -Structure Exposed N/A N/A -Texture (Ade-wound Skin Appearance) Assessed, No Abnormality, Localized Edema Assessed ,Scarring -Moisture (Ade-wound Skin Appearance) Assessed,Dry/ No Abnormality, Scaly Assessed -Color (Ade-wound Skin Appearance) No Abnormality, No Abnormality, Assessed Assessed -Temperature (Ade-wound Skin No Abnormality No Abnormality Appearance) (Pt Warm) (Pt Warm) -Tenderness on Palpation (Ade-wound No No Skin Appearance) -Ulcer Cleansing Rinsed/ Soap and Water Irrigated with Saline -Foul Odor after Cleansing No No -Anesthetic Used 5% Lidocaine 4% Lidocaine Gel Solution,5% Lidocaine Gel Lower Limb Edema Present Yes Right Calf (cm) 36.5 Right Ankle (cm) 22.5 - Nurse 2 - General Ulcer CM Notes Start: 07/26/22 09:45 Freq: Status: Active Protocol: Activity Type Activity Date Activity User E-sign Co-sign Detail Recorded Client Recorded Date Recorded By Document 07/26/22 11:38 PL [id number] 07/26/22 11:39 PL Document 08/09/22 12:15 PL [id number] 08/09/22 12:16 PL 07/26/22 08/09/22 11:38 12:15 Wound Center Nurse 2 #4 R Holt -Time 10:06 10:20 -Correct Patient Yes Yes -Correct Side, Site, Position Yes Yes -Correct Procedure Yes Yes -Procedure Performed Yes Yes -Type of Procedure Debridement Debridement -Clinical Debridement Subcutaneous Subcutaneous -Tissue Removed Subcutaneous Subcutaneous -Post Debridement (cm) - Length 1.0 1.0 -Post Debridement (cm) - Width 0.5 0.5 -Post Debridement (cm) - Depth 0.1 0.1 -Total Square (Post) (cm) 0.50 0.50 -Area of Debridement (cm) - Length 1.0 1.0 -Area of Debridement (cm) - Width 0.5 0.5 -Total Square (Area) (cm) 0.50 0.50 -Tunneling No No -Undermining/Tunneling No No -Circular Undermining No No -Wound/Ulcer Outcome Not Healed Not Healed -Ulcer Cleansing Rinsed/ Rinsed/ Irrigated with Irrigated with Saline Saline -Foul Odor after Cleansing No No -Bioengineered Tissue No No -Bleeding Controlled with Pressure Pressure -Treatment Response Procedure Procedure Tolerated Well Tolerated Well -Debridement - Subq, 1st 20sq cm Yes Yes Pain Scale: 0-10 Numeric Is Patient Pain Free? Yes Yes - Nurse 3 - General Ulcer D/C NN Start: 07/26/22 09:45 Freq: Status: Active Protocol: Activity Type Activity Date Activity User E-sign Co-sign Detail Recorded Client Recorded Date Recorded By Document 07/26/22 10:12 MW [id number] 07/26/22 10:13 MW Document 08/09/22 13:21 KR [id number] 08/09/22 13:27 KR 07/26/22 08/09/22 10:12 13:21 Wound Care Nurse 3 #4 R Holt -Ulcer Cleansing Rinsed/ Rinsed/ Irrigated with Irrigated with Saline Saline -Foul Odor after Cleansing No No -Negative Pressure Wound Therapy N/A N/A -Primary Dressing Applied C Hydrogel ($) -Primary Dressing Covered/Secured with Dry Gauze & Roll Gauze, Secured with Tape Treatment Response Procedure Tolerated Well Vital Signs Temperature (97.8 F-99.1 F) 96.9 F L Temperature Source Temporal Pulse Rate (60-100) 69 Pulse Location Monitor Blood Pressure (90/60-120/80) 123/35 H Blood Pressure Mean 64 Source Monitor Pain Scale: 0-10 Numeric Is Patient Pain Free? Yes No Teaching: Wound Center Dressing Your Wound -Person Taught Patient -Teaching Method Discussion -Response to teaching Verbalize understanding WC - Visit Discharge Discharge Condition Stable Ambulatory Status Ambulatory Transportation Private Auto Accompanied by self Medication Reconcilliation completed & No provided to patient/care provider Clinical Summary of Care Provided Yes Assessment/Plan Assessment/Plan (1) Leg wound, right: CODE(S): S81.801A - Unspecified open wound, right lower leg, initial encounter QUALIFIERS: Encounter type: subsequent encounter Qualified Code(s): S81.801D - Unspecified open wound, right lower leg, subsequent encounter (2) Puncture wound without foreign body, right lower leg, subsequent encounter: CODE(S): S81.831D - Puncture wound without foreign body, right lower leg, subsequent encounter (3) Cellulitis of right leg: CODE(S): L03.115 - Cellulitis of right lower limb (4) Chronic venous insufficiency: CODE(S): I87.2 - Venous insufficiency (chronic) (peripheral) (5) Hypertension: CODE(S): I10 - Essential (primary) hypertension QUALIFIERS: Hypertension type: essential hypertension Qualified Code(s): I10 - Essential (primary) hypertension (6) Congestive heart failure: CODE(S): I50.9 - Heart failure, unspecified QUALIFIERS: Heart failure type: unspecified Heart failure chr onicity: chronic Qualified Code(s): I50.9 - Heart failure, unspecified (7) CAD (coronary artery disease): CODE(S): I25.10 - Atherosclerotic heart disease of [place] coronary artery without angina pectoris QUALIFIERS: Coronary Disease-Associated Artery/Lesion type: unspecified vessel or lesion type Associated angina: angina presence unspecified (8) Asthma: CODE(S): J45.909 - Unspecified asthma, uncomplicated QUALIFIERS: Asthma severity: unspecified severity (9) GERD (gastroesophageal reflux disease): CODE(S): K21.9 - Gastro-esophageal reflux disease without esophagitis QUALIFIERS: Esophagitis presence: esophagitis presence not specified Qualified Code(s): K21.9 - Gastro-esophageal reflux disease without esophagitis (10) Stage III chronic kidney disease: CODE(S): N18.3 - Chronic kidney disease, stage 3 (moderate) (11) PVD (peripheral vascular disease): CODE(S): I73.9 - Peripheral vascular disease, unspecified (12) History of deep vein thrombosis: CODE(S): Z86.718 - Personal history of other venous thrombosis and embolism (13) History of endometrial cancer: CODE(S): Z85.42 - Personal history of malignant neoplasm of other parts of uterus (14) History of gastrointestinal bleeding: CODE(S): Z87.19 - Personal history of other diseases of the digestive system (15) History of breast cancer: CODE(S): Z85.3 - Personal history of malignant neoplasm of breast (16) History of CVA (cerebrovascular accident): CODE(S): Z86.73 - Personal history of transient ischemic attack (TIA), and cerebral infarction without residual deficits (17) Osteoporosis: CODE(S): M81.0 - Age-related osteoporosis without current pathological fracture (18) History of myocardial infarction: CODE(S): I25.2 - Old myocardial infarction (19) History of bilateral mastectomy: CODE(S): Z90.13 - Acquired absence of bilateral breasts and nipples (20) H/O bilateral oophorectomy: CODE(S): Z90.722 - Acquired absence of ovaries, bilateral (21) History of cholecystectomy: CODE(S): Z90.49 - Acquired absence of other specified parts of digestive tract (22) History of colon surgery: CODE(S): Z98.890 - Other specified postprocedural states (23) History of hysterectomy: CODE(S): Z90.710 - Acquired absence of both cervix and uterus (24) Gout: CODE(S): M10.9 - Gout, unspecified PLAN: Plan This is an 81-year-old female who is active and functional. She sustained t rauma to the right pretibial surface on May 19, 2022. She presented with a wound and recent cellulitis, with a culture which has been recently positive for Pseudomonas aeruginosa and Serratia marcescens. She was in the midst of a prescription for Levaquin, which appeared appropriate to the sensitivity results of her recent culture. The Levaquin prescription has been completed. She had been recently using Bactroban topically and Tubigrip's. We have implemented conservative treatment measures to minimize swelling to the right lower extremity. This includes leg elevation, with legs elevated to heart level, or higher. This is to be accomplished as much as possible. Prolonged idle sitting has been discouraged. Activity has been encouraged. We are to continue the use of collagen hydrogel which will be applied topically on a daily basis, covered with gauze. The patient is to continue the use of Tubigrip's of 20 to 30 mmHg compression. Her appetite is said to be good, and nutritional optimization has been discussed. Her wound is now nearly healed. The patient is to follow-up on an outpatient basis in 2 weeks. Total time: 28 minutes
== END 2022-08-17 23:59 | disposition home or self-care (01) ==
LOC: WC 09:45
PROVIDERS: PCP Family Medicine; Visit Provider Surgery
DX: L03.115 Cellulitis of right lower limb (principal); I13.0 Hypertensive heart and chronic kidney disease with heart failure and stage 1 through stage 4 chronic kidney disease, or unspecified chronic kidney disease; I50.9 Heart failure, unspecified; I73.9 Peripheral vascular disease, unspecified; N18.30 Chronic kidney disease, stage 3 unspecified; Z90.722 Acquired absence of ovaries, bilateral; I25.10 Atherosclerotic heart disease of native coronary artery without angina pectoris; Z79.82 Long term (current) use of aspirin; M10.9 Gout, unspecified; M81.0 Age-related osteoporosis without current pathological fracture; K21.9 Gastro-esophageal reflux disease without esophagitis; Z79.1 Long term (current) use of non-steroidal anti-inflammatories (NSAID); Z79.02 Long term (current) use of antithrombotics/antiplatelets; Z90.710 Acquired absence of both cervix and uterus; Z90.13 Acquired absence of bilateral breasts and nipples; I87.2 Venous insufficiency (chronic) (peripheral); J45.909 Unspecified asthma, uncomplicated; B96.5 Pseudomonas (aeruginosa) (mallei) (pseudomallei) as the cause of diseases classified elsewhere; S81.801D Unspecified open wound, right lower leg, subsequent encounter; S81.831D Puncture wound without foreign body, right lower leg, subsequent encounter; Z86.718 Personal history of other venous thrombosis and embolism; Z85.42 Personal history of malignant neoplasm of other parts of uterus; Z87.19 Personal history of other diseases of the digestive system; Z85.3 Personal history of malignant neoplasm of breast; Z86.73 Personal history of transient ischemic attack (TIA), and cerebral infarction without residual deficits; I25.2 Old myocardial infarction; Z90.49 Acquired absence of other specified parts of digestive tract
CPT/HCPCS: 11042

== ENCOUNTER 2022-09-06 09:45 | Outpatient (RCR) | payer MEDICARE, SELFPAY ==
[2022-08-18 00:32] VITALS: BP 123/35; PULSE 69; RESP 16; TEMP 36.1; BMI 25.4
[2022-08-23 10:08] VITALS: BP 129/69; PULSE 63; TEMP 36.1; BMI 25.4
--- NOTE | 2022-08-23 16:14 | HP.PCM_ITS ---
History of Present Illness Date of Service: 08/23/22 Chief Complaint: Traumatic wound of the right lower extremity History of Wound: This is an 81-year-old female who presented with an open wound on the pretibial area of the right lower extremity, the result of recent trauma. On May 19, the patient stated a log rolled on me. She sustained trauma to the right pretibial area, resulting in an open wound. She presented to the emergency department on May 24, 2022, where she was prescribed Keflex 500 mg p.o. 3 times daily for 7 days. She has also been using Bactroban topically, and Tubigrip's for compression. It is noted that the patient underwent a noninvasive lower extremity arterial study approximately 1 year ago, where arterial perfusion in the right lower extremity was noted to be normal. Patient has multiple pre-existing medical conditions, which are listed below. A wound culture performed on May 27, 2022, was positive for Pseudomonas aeruginosa and Serratia marcescens. As result of these cultures, and according to sensitivity results, the patient was placed on Levaquin, which continued until the patient's initial appointment. The patient is functional for her age, and is said to have a good appetite. [facility] Medical History Bilateral lower extremity edema Broken heart syndrome Cellulitis of right leg Chronic venous insufficiency Congestive heart failure DVT (deep venous thrombosis) Endometrial cancer GI bleed Gout History of breast cancer History of breast cancer History of CVA (cerebrovascular accident) History of deep vein thrombosis History of endometrial cancer History of gastrointestinal bleeding History of myocardial infarction History of stroke Hypertension Kidney disease Kidney stones Laceration without foreign body, right lower leg, sequela Leg wound, right Myocardial infarction Osteoporosis Osteoporosis Puncture wound without foreign body, right lower leg, subsequent encounter PVD (peripheral vascular disease) Seizures Stroke/cerebrovascular accident Traumatic hematoma of right lower leg Venous ulcer of right lower extremity with varicose veins Home Medications albuterol sulfate 90 mcg/actuation aerosol inhaler 2 puff inhalation Q4H PRN PRN Shortness Of Breath 03/20/15 [History Last Taken 11/30/20] aspirin 81 mg chewable tablet 81 mg PO QHS heart health/stroke 03/20/15 [History Last Taken 12/01/20] montelukast 10 mg tablet 10 mg PO QHS asthma 03/20/15 [History Last Taken 12/01/20] spironolactone 25 mg tablet 25 mg PO DAILY water pill 03/20/15 [History Last Taken 12/01/20] torsemide 20 mg tablet 10 mg PO DAILY water pill 03/20/15 [History Last Taken 12/01/20] omeprazole 40 mg capsule,delayed release 40 mg PO PRN PRN stomach 06/14/19 [History Last Taken 12/02/20] losartan 25 mg tablet 12.5 - 25 mg PO DAILY BP 12/02/20 [History Last Taken 12/01/20] budesonide-formoterol HFA 160 mcg-4.5 mcg/actuation aerosol inhaler 2 puff inhalation BID breathing 02/25/21 [History Last Taken Unknown] nitrofurantoin macrocrystal 100 mg capsule (Macrodantin) 100 mg PO .PRN #20 caps 08/20/21 [Rx Last Taken Unknown] clopidogrel 75 mg tablet 1 tab PO DAILY 04/09/22 [History Last Taken Unknown] febuxostat 40 mg tablet 1 tab PO DAILY 04/09/22 [History Last Taken Unknown] albuterol sulfate 2.5 mg/3 mL (0.083 %) solution for nebulization 2.5 mg (3 mL) inhalation Q4H PRN #25 vials 04/18/22 [Rx Last Taken Unknown] cephalexin 500 mg capsule 500 mg PO TID #21 CAPSULES 05/24/22 [Rx Last Taken Unknown] Allergy/AdvReac Type Severity Reaction Status Date / Time diazepam [From Valium] Allergy seizures Verified 06/07/22 09:34 diphenhydramine HCl Allergy difficulty Verified 06/07/22 09:34 [From Benadryl] breathing esomeprazole magnesium Allergy chest pain Verified 06/07/22 09:34 [From Nexium] NSAIDS (Non-Steroidal Allergy Other Verified 06/07/22 09:34 Anti-Inflamma pegloticase [From Krystexxa] Allergy Other Verified 06/07/22 09:37 Penicillins Allergy Rash Verified 06/07/22 09:34 pentazocine lactate Allergy quit Verified 06/07/22 09:34 [From Talwin] breathing Sulfa (Sulfonamide Allergy Rash Verified 06/07/22 09:34 Antibiotics) sulfur dioxide Allergy massive Verified 06/07/22 09:34 headaches Family History Mother Cancer stomach throat Thyroid disorder Father Heart disease Surgical History H/O bilateral mastectomy H/O bilateral oophorectomy H/O bilateral oophorectomy H/O dilation and curettage History of bilateral mastectomy History of cholecystectomy History of cholecystectomy History of colon surgery History of colon surgery History of hysterectomy S/P RAFIA (total abdominal hysterectomy) Social History Smoking Status: Never smoker alcohol intake: never substance use type: does not use caffeine: Yes what type of physical activity do you participate in: walking and bicycling frequency: daily seatbelt use: always do you feel safe at home: Yes additional social history: Russell- Both are retired Vital Signs Vital Signs Vital Signs: 08/23/22 10:08 Temperature 96.9 F L Temperature Source Temporal Pulse Rate 63 Blood Pressure 129/69 H Blood Pressure Mean 89 Blood Pressure Source Monitor Weight Weight: 134 lb 6.711 oz Body Mass Index (BMI) 25.4 Physical Exam Const alert, oriented x3, no apparent distress, average body habitus and well nourished General Appearance: cooperative, comfortable, well kempt and well developed Orientation / Consciousness: awake, oriented to person, oriented to place and oriented to time HEENT normocephalic, head/scalp atraumatic and hearing grossly normal bilaterally Head and Scalp: normal to inspection, normocephalic and atraumatic External Ear: external ears normal Eyes PERRL and EOMs intact bilaterally General Eye: normal appearance of both eyes Resp normal respiratory effort, normal air movement, no retractions and no use of accessory muscles Effort and Inspection: able to speak in complete sentences Extremity no calf tenderness General Extremity: Negative for clubbing or cyanosis Skin Wound Narrative: No significant swelling or edema are noted in the patient's right lower ext remity. A superficial wound is noted on the right pretibial area. Dimensions are documented elsewhere. The wound appears to be much smaller in size, and nearly healed. There is no sign of infection or cellulitis. There is a small amount of bioburden present. Neuro oriented x3, CN's II-XII intact bilaterally, moves all extremities and no focal motor deficits Sensorium / Orientation: awake, alert, oriented to person, oriented to place and oriented to time Psych Appearance: grossly normal and appropriate Attitude: calm Activity / Motor Behavior: appropriate eye contact Speech: normal speech Mood & Affect: euthymic mood Thought Process: normal thought process Thought Content: normal thought content Attention / Concentration: attention grossly intact Debridement Note Debridement Note Wound debrided: Right pretibial wound Laterality: Right Type of Debridement: Excisional debridement Anesthesia Used: 5% Lidocaine Gel and Cetacaine Depth: Down to and including healthy tissue and in the subcutaneous layer Percentage of wound debrided: 100 Instrument Used: 3mm curette Tissue Removed: Bioburden Severity: Fat Layer Exposed Amount of bleeding with debridement: Mild Bleeding Controlled with: Compression and gauze Patient tolerated procedure: Patient tolerated procedure well Post-Debridement Measurements and Additional Note: Post-Debridement Measurements/Treatment ROSS - Nurse 1 - General Ulcer Assessment Start: 08/23/22 10:07 Freq: Status: Active Protocol: HAN Activity Type Activity Date Activity User E-sign Co-sign Detail Recorded Client Recorded Date Recorded By Document 08/23/22 10:08 ALLAN [id number] 08/23/22 10:11 ALLAN 08/23/22 10:08 ROSS - Today's Visit Information Type of service Follow-up Visit (Physician/QUAHOGGER ) Arrival Mode Ambulatory Patient Identification Verified (Name & Yes ) Patient Requires Transmission-Based No Precautions Safety Precautions NA Height and Weight Body Mass Index (BMI) 25.4 BMI Classification Overweight Vital Signs Temperature (97.8 F-99.1 F) 96.9 F L Temperature Source Temporal Pulse Rate (60-100) 63 Pulse Location Monitor Blood Pressure (90/60-120/80) 129/69 H Blood Pressure Mean 89 Source Monitor History Since Last Visit- (Skip if this is Patient's initial visit) Have you changed medications since your No last visit? Any new allergies or adverse reactions No Had a fall/change in ADL's that may No increase risk of falls Signs or symptoms of abuse and/or No neglect since last visit Have you been in the hospital since your No last visit? Has dressing in place as prescribed Yes Has compression in place as prescribed Yes Has offloadiing in place as prescribed N/A Experienced any changes in pain level or No management Left Footwear Regular Shoe Right Footwear Regular Shoe Pain Scale: 0-10 Numeric Is Patient Pain Free? Yes WC - Nurse 1 - General Ulcer Measurement Start: 08/23/22 10:07 Freq: Status: Active Protocol: Activity Type Activity Date Activity User E-sign Co-sign Detail Recorded Client Recorded Date Recorded By Document 08/23/22 10:08 AK [id number] 08/23/22 10:11 AK 08/23/22 10:08 Wound Center Nurse 1 #4 R Holt -Combined with other wound No -Current Size (cm) - Length 0.1 -Current Size (cm) - Width 0.1 -Current Size (cm) - Depth 0.1 -Total Square Cm 0.01 -Date of Last Picture (Recall this 08/23/22 field) -Photo Taken Yes -Tunneling No -Undermining/Tunneling No -Circular Undermining No -Change in Wound Grade/Stage No -Exudate Amt None Present -Granulation Amt None Present (0 %) -Granulation Quality N/A -Slough/Fibrin No -Necrosis Amt None Present (0 %) -Structure Exposed N/A -Texture (Ade-wound Skin Appearance) No Abnormality, Assessed -Moisture (Ade-wound Skin Appearance) No Abnormality, Assessed -Color (Ade-wound Skin Appearance) No Abnormality, Assessed -Temperature (Ade-wound Skin No Abnormality Appearance) (Pt Warm) -Tenderness on Palpation (Ade-wound No Skin Appearance) -Ulcer Cleansing Rinsed/ Irrigated with Saline -Foul Odor after Cleansing No -Anesthetic Used 5% Lidocaine Gel Lower Limb Edema Present No WC - Nurse 2 - General Ulcer CM Notes Start: 08/23/22 10:07 Freq: Status: Active Protocol: Activity Type Activity Date Activity User E-sign Co-sign Detail Recorded Client Recorded Date Recorded By Document 08/23/22 12:41 PL [id number] 08/23/22 12:42 PL 08/23/22 12:41 Wound Center Nurse 2 #4 R Holt -Time 09:57 -Correct Patient Yes -Correct Side, Site, Position Yes -Correct Procedure Yes -Procedure Performed Yes -Type of Procedure Debridement -Clinical Debridement Subcutaneous -Tissue Removed Subcutaneous -Post Debridement (cm) - Length 0.1 -Post Debridement (cm) - Width 0.1 -Post Debridement (cm) - Depth 0.1 -Total Square (Post) (cm) 0.01 -Area of Debridement (cm) - Length 0.1 -Area of Debridement (cm) - Width 0.1 -Total Square (Area) (cm) 0.01 -Tunneling No -Undermining/Tunneling No -Circular Undermining No -Wound/Ulcer Outcome Not Healed -Ulcer Cleansing Rinsed/ Irrigated with Saline -Foul Odor after Cleansing No -Bioengineered Tissue No -Bleeding Controlled with Pressure -Treatment Response Procedure Tolerated Well -Debridement - Subq, 1st 20sq cm Yes Pain Scale: 0-10 Numeric Is Patient Pain Free? Yes WC - Nurse 3 - General Ulcer D/C NN Start: 08/23/22 10:07 Freq: Status: Active Protocol: Activity Type Activity Date Activity User E-sign Co-sign Detail Recorded Client Recorded Date Recorded By Document 08/23/22 10:08 ALLAN [id number] 08/23/22 10:11 ALLAN 08/23/22 10:08 Vital Signs Temperature (97.8 F-99.1 F) 96.9 F L Temperature Source Temporal Pulse Rate (60-100) 63 Pulse Location Monitor Blood Pressure (90/60-120/80) 129/69 H Blood Pressure Mean 89 Source Monitor Pain Scale: 0-10 Numeric Is Patient Pain Free? Yes Wound Care Nurse 3 #4 R Holt -Ulcer Cleansing Rinsed/ Irrigated with Saline -Foul Odor after Cleansing No -Negative Pressure Wound Therapy N/A -Other Dressing hydrogel -Primary Dressing Covered/Secured with Dry Gauze Assessment/Plan Assessment/Plan (1) Leg wound, right: CODE(S): S81.801A - Unspecified open wound, right lower leg, initial encounter QUALIFIERS: Encounter type: subsequent encounter Qualified Code(s): S81.801D - Unspecified open wound, right lower leg, subsequent encounter (2) Puncture wound without foreign body, right lower leg, subsequent encounter: CODE(S): S81.831D - Puncture wound without foreign body, right lower leg, subsequent encounter (3) Cellulitis of right leg: CODE(S): L03.115 - Cellulitis of right lower limb (4) Chronic venous insufficiency: CODE(S): I87.2 - Venous insufficiency (chronic) (peripheral) (5) Hypertension: CODE(S): I10 - Essential (primary) hypertension QUALIFIERS: Hypertension type: essential hypertension Qualified Code(s): I10 - Essential (primary) hypertension (6) Congestive heart failure: CODE(S): I50.9 - Heart failure, unspecified QUALIFIERS: Heart failure type: unspecified Heart failure chronicity: chronic Qualified Code(s): I50.9 - Heart failure, unspecified (7) CAD (coronary artery disease): CODE(S): I25.10 - Atherosclerotic heart disease of [place] coronary artery without angina pectoris QUALIFIERS: Coronary Disease-Associated Artery/Lesion type: unspecified vessel or lesion type Associated angina: angina presence unspecified (8) Asthma: CODE(S): J45.909 - Unspecified asthma, uncomplicated QUALIFIERS: Asthma severity: unspecified severity (9) GERD (gastroesophageal reflux disease): CODE(S): K21.9 - Gastro-esophageal reflux disease without esophagitis QUALIFIERS: Esophagitis presence: esophagitis presence not specified Qualified Code(s): K21.9 - Gastro-esophageal reflux disease without esophagitis (10) Stage III chronic kidney disease: CODE(S): N18.3 - Chronic kidney disease, stage 3 (moderate) (11) PVD (peripheral vascular disease): CODE(S): I73.9 - Peripheral vascular disease, unspecified (12) History of deep vein thrombosis: CODE(S): Z86.718 - Personal history of other venous thrombosis and embolism (13) History of endometrial cancer: CODE(S): Z85.42 - Personal history of malignant neoplasm of other parts of uterus (14) History of gastrointestinal bleeding: CODE(S): Z87.19 - Personal history of other diseases of the digestive system (15) History of breast cancer: CODE(S): Z85.3 - Personal history of malignant neoplasm of breast (16) History of CVA (cerebrovascular accident): CODE(S): Z86.73 - Personal history of transient ischemic attack (TIA), and cerebral infarction without residual deficits (17) Osteoporosis: CODE(S): M81.0 - Age-related osteoporosis without current pathological fracture (18) History of myocardial infarction: CODE(S): I25.2 - Old myocardial infarction (19) History of bilateral mastectomy: CODE(S): Z90.13 - Acquired absence of bilateral breasts and nipples (20) H/O bilateral oophorectomy: CODE(S): Z90.722 - Acquired absence of ovaries, bilateral (21) History of cholecystectomy: CODE(S): Z90.49 - Acquired absence of other specified parts of digestive tract (22) History of colon surgery: CODE(S): Z98.890 - Other specified postprocedural states (23) History of hysterectomy: CODE(S): Z90.710 - Acquired absence of both cervix and uterus (24) Gout: CODE(S): M10.9 - Gout, unspecified PLAN: Plan This is an 81-year-old female who is active and functional. She sustained trauma to the right pretibial surface on May 19, 2022. She presented with a wound and recent cellulitis, with a culture which has been recently positive for Pseudomonas aeruginosa and Serratia marcescens. She was in the midst of a prescription for Levaquin, which appeared appropriate to the sensitivity results of her recent culture. The Levaquin prescription has been completed. She had been recently using Bactroban topically and Tubigrip's. We have implemented conservative treatment measures to minimize swelling to the right lower extremity. This includes leg elevation, with legs elevated to heart level, or higher. This is to be accomplished as much as possible. Prolonged idle sitting has been discouraged. Activity has been encouraged. We are to continue the use of collagen hydrogel which will be applied topically on a daily basis, covered with gauze. The patient is to continue the use of Tubigrip's of 20 to 30 mmHg compression. Her appetite is said to be good, and nutritional optimization has been discussed. Her wound is now nearly healed. The patient is to follow-up on an outpatient basis in 2 weeks. Her wound is anticipated to be healed upon her return. Total time: 25 minutes
[2022-09-06 11:39] VITALS: BP 126/34; PULSE 79; RESP 18; TEMP 36.1; BMI 25.4
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
== END 2022-09-06 16:26 | disposition home or self-care (01) ==
LOC: WC 09:45
PROVIDERS: PCP Family Medicine; Visit Provider Surgery
DX: S81.831D Puncture wound without foreign body, right lower leg, subsequent encounter (principal); I50.9 Heart failure, unspecified; I13.0 Hypertensive heart and chronic kidney disease with heart failure and stage 1 through stage 4 chronic kidney disease, or unspecified chronic kidney disease; I73.9 Peripheral vascular disease, unspecified; N18.30 Chronic kidney disease, stage 3 unspecified; L03.115 Cellulitis of right lower limb; K21.9 Gastro-esophageal reflux disease without esophagitis; I87.2 Venous insufficiency (chronic) (peripheral); I25.10 Atherosclerotic heart disease of native coronary artery without angina pectoris; M10.9 Gout, unspecified; M81.0 Age-related osteoporosis without current pathological fracture; Z90.13 Acquired absence of bilateral breasts and nipples; Z79.02 Long term (current) use of antithrombotics/antiplatelets; Z79.1 Long term (current) use of non-steroidal anti-inflammatories (NSAID); B96.5 Pseudomonas (aeruginosa) (mallei) (pseudomallei) as the cause of diseases classified elsewhere; Z90.722 Acquired absence of ovaries, bilateral; J45.909 Unspecified asthma, uncomplicated; Z79.82 Long term (current) use of aspirin; Z90.710 Acquired absence of both cervix and uterus; Z86.718 Personal history of other venous thrombosis and embolism; Z85.42 Personal history of malignant neoplasm of other parts of uterus; Z87.19 Personal history of other diseases of the digestive system; Z85.3 Personal history of malignant neoplasm of breast; Z86.73 Personal history of transient ischemic attack (TIA), and cerebral infarction without residual deficits; I25.2 Old myocardial infarction; Z90.49 Acquired absence of other specified parts of digestive tract
CPT/HCPCS: 11042; 99213; G0463

== ENCOUNTER 2023-01-22 17:11 | Emergency (ER) | payer MEDICARE, SELFPAY ==
[2023-01-22 17:12] VITALS: BP 134/57; PULSE 81; RESP 16; TEMP 36.4; O2SAT 97; BMI 26.5
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
[2023-01-22 18:10] VITALS: BP 134/78; PULSE 78; RESP 16; TEMP 36.6; O2SAT 99
== END 2023-01-22 18:11 | disposition home or self-care (01) ==
LOC: ED 18:09
PROVIDERS: Emergency Provider Emergency Medicine; PCP Family Medicine; Visit Provider Emergency Medicine
DX: S80.12XA Contusion of left lower leg, initial encounter (principal); I11.0 Hypertensive heart disease with heart failure; I50.9 Heart failure, unspecified; Z86.73 Personal history of transient ischemic attack (TIA), and cerebral infarction without residual deficits; I25.10 Atherosclerotic heart disease of native coronary artery without angina pectoris; Z86.718 Personal history of other venous thrombosis and embolism; W51.XXXA Accidental striking against or bumped into by another person, initial encounter
CPT/HCPCS: 99282

== ENCOUNTER 2023-06-18 10:32 | Emergency (ER) | payer MEDICARE, SELFPAY ==
[2023-06-18 10:33] VITALS: BP 127/52; PULSE 90; RESP 18; TEMP 35.9; O2SAT 100; BMI 25.9
--- NOTE | 2023-06-18 11:17 | CT_ITS ---
HISTORY: Nausea, vomiting, and pain. TECHNIQUE: Helically acquired images were obtained of the abdomen and pelvis without oral or IV contrast. A radiation dose optimization technique was used for this scan. 362 images. COMPARISON: 04/09/2022. FINDINGS: LOWER CHEST: Lung bases clear. BOWEL: Bowel nondilated. Appendix not visualized. Colonic diverticulosis without focal pericolonic inflammatory change. PERITONEUM: No significant free fluid. LIVER/SPLEEN: Nonenlarged. GALLBLADDER/BILIARY TREE: Gallbladder present. PANCREAS: 12 mm cystic lesion of the body. KIDNEYS AND URETERS: No nephrolithiasis or hydronephrosis. ADRENAL GLANDS: No nodules. VESSELS: No abdominal aortic aneurysm. Mild atherosclerosis. PELVIC ORGANS: Hysterectomy. Unchanged appearance of mild bladder prolapse or urethral diverticulum containing calculi. BONES: Degenerative change and mild scoliosis. CT/Abdomen/Pelvis without Cont IMPRESSION: No evidence for small bowel obstruction or acute diverticulitis. 1.2 cm cystic lesion of the pancreas. Recommend a contrast-enhanced, pancreas-protocol abdominal CT or MR in 1 year. Unchanged appearance of mild bladder prolapse or urethral diverticulum containing calculi. Electronically Signed: Keyonna Weathers MD at 12:50 EDT ,
--- NOTE | 2023-06-18 11:18 | EDS_ITS ---
HPI History of Present Illness Chief Complaint: Nausea/Vomiting/Diarrhea Narrative Narrative: Patient presents with concern for bowel obstruction. This patient has had about 6 bowel obstructions. The first 1 they took about 10 inches out of her small intestines it sounds like. That was 2014. She has 1 of these on average every year but they are not necessarily spaced out like that. Patient was feeling fine yesterday. She woke up this morning and was getting ready for yarsani. She then moved her bowels. But she then moved her bowels 5 or 6 times. It got softer and softer. The last one was a little bit watery. She never saw any black or blood. She is on Plavix and aspirin. She then vomited once at home. She states she really does not have pain. She states her stomach off-and-on has unhappiness. She thinks she has some mild nausea but even that she does not really feel too nauseated now. No fevers or chills. Never had back pain. No syncope or presyncope. Nothing she ate or drank recently seemed abnormal. Her is fine. She did just get off a bump of her torsemide for 5 days. But she has been on that medicine for a long time and has 40 years history of congestive heart failure. She has no pulmonary symptoms at all now. [facility] Medical History (Updated 06/18/23 @ 13:[address] Bony Zhang MD) Bilateral lower extremity edema Broken heart syndrome Cellulitis of right leg Chronic venous insufficiency Congestive heart failure DVT (deep venous thrombosis) Endometrial cancer GI bleed Gout History of breast cancer History of CVA (cerebrovascular accident) History of deep vein thrombosis History of endometrial cancer History of gastrointestinal bleeding History of myocardial infarction Hypertension Kidney disease Kidney stones Leg wound, right Osteoporosis PVD (peripheral vascular disease) Seizures Stroke/cerebrovascular accident Venous ulcer of right lower extremity with varicose veins Home Medications albuterol sulfate 90 mcg/actuation aerosol inhaler 2 puff inhalation Q4H PRN PRN Shortness Of Breath 03/20/15 [History Last Taken 11/30/20] aspirin 81 mg chewable tablet 81 mg PO QHS heart health/stroke 03/20/15 [History Last Taken 12/01/20] montelukast 10 mg tablet 10 mg PO QHS asthma 03/20/15 [History Last Taken 12/01/20] spironolactone 25 mg tablet 25 mg PO DAILY water pill 03/20/15 [History Last Taken 12/01/20] torsemide 20 mg tablet 10 mg PO DAILY water pill 03/20/15 [History Last Taken 12/01/20] omeprazole 40 mg capsule,delayed release 40 mg PO PRN PRN stomach 06/14/19 [History Last Taken 12/02/20] losartan 25 mg tablet 12.5 - 25 mg PO DAILY BP 12/02/20 [History Last Taken 12/01/20] budesonide-formoterol HFA 160 mcg-4.5 mcg/actuation aerosol inhaler 2 puff inhalation BID breathing 02/25/21 [History Last Taken Unknown] nitrofurantoin macrocrystal 100 mg capsule (Macrodantin) 100 mg PO .PRN #20 caps 08/20/21 [Rx Last Taken Unknown] clopidogrel 75 mg tablet 1 tab PO DAILY 04/09/22 [History Last Taken Unknown] febuxostat 40 mg tablet 1 tab PO DAILY 04/09/22 [History Last Taken Unknown] albuterol sulfate 2.5 mg/3 mL (0.083 %) solution for nebulization 2.5 mg (3 mL) inhalation Q4H PRN #25 vials 04/18/22 [Rx Last Taken Unknown] cephalexin 500 mg capsule 500 mg PO TID #21 CAPSULES 05/24/22 [Rx Last Taken Unknown] ondansetron 4 mg disintegrating tablet 4 mg PO Q8H PRN PRN Nausea #10 tabs 06/18/23 [Rx Last Taken Unknown] Allergy/AdvReac Type Severity Reaction Status Date / Time diazepam [From Valium] Allergy seizures Verified 06/18/23 10:34 diphenhydramine HCl Allergy difficulty Verified 06/18/23 10:34 [From Benadryl] breathing esomeprazole magnesium Allergy chest pain Verified 06/18/23 10:34 [From Nexium] NSAIDS (Non-Steroidal Allergy Other Verified 06/18/23 10:34 Anti-Inflamma pegloticase [From Krystexxa] Allergy Other Verified 06/18/23 10:34 Penicillins Allergy Rash Verified 06/18/23 10:34 pentazocine lactate Allergy quit Verified 06/18/23 10:34 [From Talwin] breathing Sulfa (Sulfonamide Allergy Rash Verified 06/18/23 10:34 Antibiotics) sulfur dioxide Allergy massive Verified 06/18/23 10:34 headaches Family History Mother Cancer stomach throat Thyroid disorder Father Heart disease Surgical History (Updated 06/18/23 @ 11:[address] Bony Zhang MD) H/O bilateral mastectomy H/O bilateral oophorectomy H/O dilation and curettage History of cholecystectomy History of colon surgery History of hysterectomy Social History Smoking Status: Never smoker alcohol intake: never substance use type: does not use caffeine: Yes what type of physical activity do you participate in: walking and bicycling frequency: daily seatbelt use: always do you feel safe at home: Yes additional social history: Russell- Both are retired ROS ROS ED ROS Narrative A complete review of systems was performed and is negative except as documented in the history of present illness. Some specific details below. Constitutional: No recent fevers or chills. She was feeling fine until this mor jay jay. EYE: No visual complaints or pain. ENT: No difficulty swallowing. No swelling. No pain. CV: No chest pain or palpitations. Respiratory: No dyspnea. No hemoptysis. No difficulty taking breaths. She has a history of CHF but no complaints related. GI: Please see history of present illness. : No frequency dysuria or hematuria. Musculoskeletal: No recent trauma. No pains. Skin: No rash. Nondiaphoretic. Neuro: No weakness or numbness. Endocrine: No polyuria or polydipsia. EXAM Physical Exam Narrative Exam Narrative: CONSTITUTIONAL: Patient is nontoxic in appearance. The patient looks comfortable. HEENT: No notable trauma. Mucous membranes do still look moist. No sinus tenderness. No indication of pain with swallowing. EYES: No conjunctival injection. CARDIOVASCULAR: Regular rate. Regular rhythm. No JVD. RESPIRATORY: No respiratory distress. Breathing is unlabored. No wheezes. No rhonchi. No rales. No pain with a deep breath. GASTROINTESTINAL: Not distended. Bowel sounds are normal to slightly increased. No tenderness. No guarding. No rebound. No palpable mass. No bruit. No hernia of prior incisions. GENITOURINARY: No tenderness over the bladder. No CVA tenderness. MUSCULOSKELETAL: Atraumatic. No peripheral edema. No cord. No tenderness along the deep venous system. No asymmetry. Mild chronic venous stasis color changes. NEUROLOGICAL: Patient is alert and appropriate. No focal deficit noted. SKIN: No noted rashes. No diaphoresis. PSYCHIATRIC: Patient is calm. Mood is appropriate. Const Vital Signs: 06/18/23 10:33 Temperature 96.7 F L Temperature Source Temporal Pulse Rate 90 Respiratory Rate 18 Blood Pressure 127/52 H Blood Pressure Mean 77 Pulse Ox 100 Oxygen Delivery Method Room Air MDM MDM MDM Narrative Medical decision making narrative: Patient CBC is showing no acute abnormalities. Patient's electrolyte do show signs of paramount of dehydration with elevated BUN to creatinine and a GFR of 23. This is low for the patient although she states she has had GFR is down in the teens. I think this is more likely due to the doubling of torsemide last week than diarrhea that just occurred this morning. We did have a long talk. We will give her back some fluids now. She is comfortable drinking more fluids at home. She normally drinks 64 ounces a day. She will increase that by 8 ounces for a few days and watch her overall urine output it sounds like she is very good at gauging this. She states her urine output has been down a bit this week. Liver function test are normal. Lipase is mildly up but she is not having pain. This is not diagnostic of pancreatitis. My independent or potation of her CT scan of the abdomen does not show any obstruction or ileus. They do note a peripancreatic area cyst and recommend follow-up. Patient and her would like to go home. I think this is reasonable. I will write for Anni in case she has any more nausea but her symptoms are gone now. Lab Data Attestation: I reviewed the patient's lab results. Labs: Laboratory Results - last 24 hr 06/18/23 11:30 WBC 8.4 RBC 4.20 Hgb 12.9 Hct 38.8 MCV 92.4 MCH 30.7 MCHC 33.2 RDW Std Deviation 46.4 H RDW Coeff of Yariel 13.6 Plt Count 227 MPV 8.6 Immature Gran % (Auto) 0.100 Neut % (Auto) 82.3 H Lymph % (Auto) 9.8 L Long % (Auto) 7.0 Eos % (Auto) 0.6 Baso % (Auto) 0.2 Absolute Neuts (auto) 6.9 Absolute Lymphs (auto) 0.83 Nucleated RBC % 0 Sodium 134 L Potassium 4.5 Chloride 100 Carbon Dioxide 26.0 Anion Gap 8 BUN 91 H Creatinine 2.17 H Estim Creat Clear Calc 14.56 Est GFR (MDRD) Af Amer 28 L Est GFR (MDRD) Non-Af 23 L BUN/Creatinine Ratio 41.9 H Glucose 115 H Calcium 9.4 Total Bilirubin 1.00 AST 23 ALT 28 Alkaline Phosphatase 93 Total Protein 7.1 Albumin 4.0 Globulin 3.1 Albumin/Globulin Ratio 1.3 Lipase 108 H Radiography Diagnostic Testing: Clinical Impression(s) from Imaging Studies Abdomen/Pelvis CT 06/18/23 11:17 IMPRESSION: No evidence for small bowel obstruction or acute diverticulitis. 1.2 cm cystic lesion of the pancreas. Recommend a contrast-enhanced, pancreas-protocol abdominal CT or MR in 1 year. Unchanged appearance of mild bladder prolapse or urethral diverticulum containing calculi. Electronically Signed: Keyonna Weathers MD at 12:50 EDT , Discharge Plan Triage Chief Complaint: Nausea/Vomiting/Diarrhea ED Provider: Bony Zhang Dx/Rx/DC Orders Clinical Impression: Nausea vomiting and diarrhea, History of small bowel obstruction, Dehydration Prescriptions: New ondansetron [ondansetron] 4 mg tablet,disintegrating 4 mg PO Q8H PRN PRN (Reason: Nausea) Qty: 10 0RF No Action torsemide 20 MG tablet 10 mg PO DAILY Rx Instructions: 1-2 depending on leg edema spironolactone 25 MG tablet 25 mg PO DAILY aspirin 81 MG tablet,chewable 81 mg PO QHS montelukast 10 MG tablet 10 mg PO QHS Patient Comments: asthma albuterol sulfate 1 INHALER inhaler 2 puff INHALATION Q4H PRN PRN (Reason: Shortness Of Breath) omeprazole 40 MG capsule,delayed release(DR/EC) 40 mg PO PRN PRN (Reason: stomach) budesonide-formoterol 160-4.5 mcg/actuation HFA aerosol inhaler 2 puff inhalation BID losartan 25 MG tablet 12.5 - 25 mg PO DAILY clopidogrel 75 mg tablet 1 tab PO DAILY febuxostat 40 mg tablet 1 tab PO DAILY albuterol sulfate 2.5 mg /3 mL (0.083 %) solution for nebulization 2.5 mg inhalation Q4H PRN Qty: 25 0RF Rx Instructions: Use q4 hours and PRN for wheezing cephalexin [cephalexin] 500 mg capsule 500 mg PO TID Qty: 21 0RF nitrofurantoin macrocrystal [Macrodantin] 100 mg capsule 100 mg PO .PRN Qty: 20 3RF Rx Instructions: take one tablet after intercourse and one tablet the next morning Primary Care Provider: Julius Sandoval Referrals: Julius Sandoval MD [Primary Care Provider] - 3-5 Days if not improving Disposition Disposition: Home, Self Care
[2023-06-18 11:37] LABS: Absolute Lymphocyte Count 0.83 X10^3/uL (0.83-4.51); Absolute Neutrophil Count 6.9 X10^3/uL (2.0-7.7); Basophil# 0.02 X10^3/uL; Basophil% 0.2 % (0-1); Eosinophil# 0.05 X10^3/uL; Eosinophils% 0.6 % (0-5); Hematocrit 38.8 % (37-47); Hemoglobin 12.9 g/dL (12.0-15.0); Lymphocyte # 0.83 X10^3/ul (0.83-4.51); Lymphocyte % 9.8 % (19-41); Mean Corp Hgb Conc 33.2 g/dL (32-36); Mean Corpuscular Hgb 30.7 pg (27.0-32.0); Mean Corpuscular Volume 92.4 fL (81-99); Mean Platelet Vol. 8.6 fl (6.2-12.0); Monocyte# 0.59 X10^3/uL; NRBC Flagged by Analyzer 0 % (0-5); Neutrophil # 6.94 X10^3/uL (2.7-7.7); Neutrophil % 82.3 % (47-70); Platelet Count 227 K/mm3 (150-450); RBC Distribution Width CV 13.6 % (11.6-14.6); RBC Distribution Width SD 46.4 fl (35.1-43.9); White Blood Count 8.4 K/mm3 (4.4-11.0)
[2023-06-18 11:54] LABS: ALB/GLOB Ratio 1.3 RATIO (0.9-2.4); AST(SGOT) 23 U/L (15-37); Alanine Aminotransfer ALT/SGPT 28 U/L (13-56); Alkaline Phosphatase 93 U/L (45-117); Anion Gap 8 (5-15); BUN 91 mg/dL (7-18); BUN/Creat Ratio 41.9 RATIO (10-20); Calcium,Total 9.4 mg/dL (8.5-10.1); Chloride 100 mmol/L (98-107); Creatinine, Serum 2.17 mg/dL (0.55-1.02); EST Glomerular Filtration Rate 23 mL/min (>60); Est Glom Filt Rate - Afr Amer 28 mL/min (>60); Estimated Creatinine Clearance 14.56 ml/min; Globulin 3.1 g/dL (2.2-4.2); Glucose 115 mg/dL (74-106); Lipase 108 U/L (13-75); Potassium 4.5 mmol/L (3.5-5.1); Protein, Total 7.1 g/dL (6.4-8.2); Sodium Level 134 mmol/L (136-145)
[2023-06-18] MEDS: Ondansetron 4 MG/2 ML Vial IV (13:29)
[2023-06-18 14:15] VITALS: BP 129/77; PULSE 62; RESP 15; O2SAT 98
== END 2023-06-18 14:16 | disposition home or self-care (01) ==
PROVIDERS: Emergency Provider Emergency Medicine; PCP Family Medicine; Visit Provider Emergency Medicine
DX: R11.2 Nausea with vomiting, unspecified (principal); I11.0 Hypertensive heart disease with heart failure; I50.9 Heart failure, unspecified; E86.0 Dehydration; R19.7 Diarrhea, unspecified; Z79.82 Long term (current) use of aspirin; Z87.19 Personal history of other diseases of the digestive system
CPT/HCPCS: 74176; 80053; 83690; 85025; 96374; 99283; A4216; J2405

== ENCOUNTER 2023-10-13 17:28 | Emergency (ER) | payer MEDICARE, SELFPAY ==
[2023-10-13 17:29] VITALS: BP 146/63; PULSE 84; RESP 14; TEMP 37.2; O2SAT 100; BMI 26.8
--- NOTE | 2023-10-13 17:40 | EX.ED.UPPERE ---
HPI History of Present Illness Chief Complaint: Upper Extremity Injury Detail of Chief Complaint: Left hand cellulitis Informant: patient Narrative Narrative: Patient presents with redness and swelling to her left hand. She had a recent cut along the proximal phalanx of her left index finger. 2 or 3 days ago she noted area of redness around this that is now spread across the second and third MCP joints. The area feels warm to touch but patient has not measured an oral temperature. She was seen at urgent care and sent to the emergency room due to concern for cellulitis and possible need for IV antibiotics. [facility] Medical History Bilateral lower extremity edema Broken heart syndrome Cellulitis of right leg Chronic venous insufficiency Congestive heart failure DVT (deep venous thrombosis) Endometrial cancer GI bleed Gout History of breast cancer History of CVA (cerebrovascular accident) History of deep vein thrombosis History of endometrial cancer History of gastrointestinal bleeding History of myocardial infarction Hypertension Kidney disease Kidney stones Leg wound, right Osteoporosis PVD (peripheral vascular disease) Seizures Stroke/cerebrovascular accident Venous ulcer of right lower extremity with varicose veins Home Medications albuterol sulfate 90 mcg/actuation aerosol inhaler 2 puff inhalation Q4H PRN PRN Shortness Of Breath 03/20/15 [History Last Taken 11/30/20] aspirin 81 mg chewable tablet 81 mg PO QHS heart health/stroke 03/20/15 [History Last Taken 12/01/20] montelukast 10 mg tablet 10 mg PO QHS asthma 03/20/15 [History Last Taken 12/01/20] spironolactone 25 mg tablet 25 mg PO DAILY water pill 03/20/15 [History Last Taken 12/01/20] torsemide 20 mg tablet 10 mg PO DAILY water pill 03/20/15 [History Last Taken 12/01/20] omeprazole 40 mg capsule,delayed release 40 mg PO PRN PRN stomach 06/14/19 [History Last Taken 12/02/20] losartan 25 mg tablet 12.5 - 25 mg PO DAILY BP 12/02/20 [History Last Taken 12/01/20] budesonide-formoterol HFA 160 mcg-4.5 mcg/actuation aerosol inhaler 2 puff inhalation BID breathing 02/25/21 [History Last Taken Unknown] nitrofurantoin macrocrystal 100 mg capsule (Macrodantin) 100 mg PO .PRN #20 caps 08/20/21 [Rx Last Taken Unknown] clopidogrel 75 mg tablet 1 tab PO DAILY 04/09/22 [History Last Taken Unknown] febuxostat 40 mg tablet 1 tab PO DAILY 04/09/22 [History Last Taken Unknown] albuterol sulfate 2.5 mg/3 mL (0.083 %) solution for nebulization 2.5 mg (3 mL) inhalation Q4H PRN #25 vials 04/18/22 [Rx Last Taken Unknown] cephalexin 500 mg capsule 500 mg PO TID #21 CAPSULES 05/24/22 [Rx Last Taken Unknown] ondansetron 4 mg disintegrating tablet 4 mg PO Q8H PRN PRN Nausea #10 tabs 06/18/23 [Rx Last Taken Unknown] doxycycline monohydrate 100 mg capsule 100 mg PO BID #20 CAPSULES 10/13/23 [Rx Last Taken Unknown] Allergy/AdvReac Type Severity Reaction Status Date / Time diazepam [From Valium] Allergy seizures Verified 10/13/23 17:29 diphenhydramine HCl Allergy difficulty Verified 10/13/23 17:29 [From Benadryl] breathing esomeprazole magnesium Allergy chest pain Verified 10/13/23 17:29 [From Nexium] NSAIDS (Non-Steroidal Allergy Other Verified 10/13/23 17:29 Anti-Inflamma pegloticase [From Krystexxa] Allergy Other Verified 10/13/23 17:29 Penicillins Allergy Rash Verified 10/13/23 17:29 pentazocine lactate Allergy quit Verified 10/13/23 17:29 [From Talwin] breathing Sulfa (Sulfonamide Allergy Rash Verified 10/13/23 17:29 Antibiotics) sulfur dioxide Allergy massive Verified 10/13/23 17:29 headaches Family History Mother Cancer stomach throat Thyroid disorder Father Heart disease Surgical History H/O bilateral mastectomy H/O bilateral oophorectomy H/O dilation and curettage History of cholecystectomy History of colon surgery History of hysterectomy Social History Smoking Status: Never smoker alcohol intake: never substance use type: does not use caffeine: Yes what type of physical activity do you participate in: walking and bicycling frequency: daily seatbelt use: always do you feel safe at home: Yes additional social history: Kade Higgins are retired ROS ROS ED Constitutional Constitutional ED: Denies chills or fever(s) Eyes Eyes: Denies discharge from eye(s) ENT ENT ED: Denies discharge from eye(s), rhinorrhea or sore throat Cardiovascular Cardiovascular: Denies chest pain Respiratory/Chest Respiratory/Chest: Denies cough or dyspnea Gastrointestinal Gastrointestinal: Denies abdominal pain, nausea or vomiting Musculoskeletal Musculoskeletal: Reports extremity pain; Denies back pain Integumentary Reports rash; Denies Abrasions Neurologic Neurologic: Denies headache(s) or weakness Psychiatric Psychiatric: Denies anxiety or depression Allergic/Immunologic Allergic/Immunologic ED: Denies lip swelling or urticaria EXAM Physical Exam Narrative Exam Narrative: Patient pleasant nontoxic-appearing. Const Vital Signs: 10/13/23 17:29 Temperature 99 F Temperature Source Temporal Pulse Rate 84 Respiratory Rate 14 Blood Pressure 146/63 H Blood Pressure Mean 90 Pulse Ox 100 Oxygen Delivery Method Room Air Positive well nourished and well developed General Appearance ED: well developed HEENT Reports moist mucous membranes Eyes EOMs intact bilaterally Chest Wall inspection of chest normal and palpation of chest normal Resp normal respiratory effort and clear to auscultation bilaterally Cardio regular rate and regular rhythm GI non-tender Palpation: soft Extremity Extremity Narrative: Erythema, warmth, edema noted over the dorsal aspect of the left hand along the proximal index finger, second, third, and fourth MCP joint. Patient able to flex and extend at the digits without difficulty. No focal joint tenderness. No area of fluctuance or abscess formation. There is no lymphangitic streaking. Neuro oriented x3 and moves all extremities Skin Skin Narrative: Cellulitis as above. MDM MDM MDM Narrative Medical decision making narrative: IV line initiated. Labwork obtained to evaluate for leukocytosis, anemia, and electrolyte derangement. Blood cultures will be obtained. Lab Data Labs: Laboratory Results 10/13/23 18:00 WBC 8.5 RBC 3.85 L Hgb 11.7 L Hct 36.9 L MCV 95.8 MCH 30.4 MCHC 31.7 L RDW Std Deviation 46.2 H RDW Coeff of Yariel 13.2 Plt Count 231 MPV 8.6 Immature Gran % (Auto) 0.200 Neut % (Auto) 77.7 H Lymph % (Auto) 12.3 L Dodge % (Auto) 8.1 Eos % (Auto) 1.2 Baso % (Auto) 0.5 Absolute Neuts (auto) 6.6 Absolute Lymphs (auto) 1.04 Nucleated RBC % 0 Sodium 135 L Potassium 4.1 Chloride 101 Carbon Dioxide 27.0 Anion Gap 7 BUN 65 H Creatinine 1.81 H Estim Creat Clear Calc 19.88 Est GFR (MDRD) Af Amer 34 L Est GFR (MDRD) Non-Af 28 L BUN/Creatinine Ratio 35.9 H Glucose 105 Calcium 9.5 Treatment and Re-Evaluation Narrative: CBC was normal white count 8.5 with a hemoglobin 11.7. 77% neutrophils noted. Chemistry studies significant for BUN of 65 and creatinine 1.81. Glucose is 105. Area of erythema is stable. It is outlined with a surgical marker. I do feel she is stable for oral antibiotic trial at home. She does have allergies to penicillin and sulfa. I will treat her with a course of doxycycline. Return instructions were provided. Discharge Plan Triage Chief Complaint: Upper Extremity Injury ED Provider: Nancy Hardin Dx/Rx/DC Orders Clinical Impression: Cellulitis of hand, left Instructions: ED Cellulitis Prescriptions: New doxycycline monohydrate 100 mg capsule 100 mg PO BID Qty: 20 0RF No Action torsemide 20 MG tablet 10 mg PO DAILY Rx Instructions: 1-2 depending on leg edema spironolactone 25 MG tablet 25 mg PO DAILY aspirin 81 MG tablet,chewable 81 mg PO QHS montelukast 10 MG tablet 10 mg PO QHS Patient Comments: asthma albuterol sulfate 1 INHALER inhaler 2 puff INHALATION Q4H PRN PRN (Reason: Shortness Of Breath) omeprazole 40 MG capsule,delayed release(DR/EC) 40 mg PO PRN PRN (Reason: stomach) budesonide-formoterol 160-4.5 mcg/actuation HFA aerosol inhaler 2 puff inhalation BID losartan 25 MG tablet 12.5 - 25 mg PO DAILY clopidogrel 75 mg tablet 1 tab PO DAILY febuxostat 40 mg tablet 1 tab PO DAILY albuterol sulfate 2.5 mg /3 mL (0.083 %) solution for nebulization 2.5 mg inhalation Q4H PRN Qty: 25 0RF Rx Instructions: Use q4 hours and PRN for wheezing cephalexin [cephalexin] 500 mg capsule 500 mg PO TID Qty: 21 0RF ondansetron [ondansetron] 4 mg tablet,disintegrating 4 mg PO Q8H PRN PRN (Reason: Nausea) Qty: 10 0RF nitrofurantoin macrocrystal [Macrodantin] 100 mg capsule 100 mg PO .PRN Qty: 20 3RF Rx Instructions: take one tablet after intercourse and one tablet the next morning Primary Care Provider: Julius Sandoval Referrals: Julius Sandoval MD [Primary Care Provider] - 1-2 Weeks Disposition Disposition: Home, Self Care
[2023-10-13 18:10] LABS: Absolute Lymphocyte Count 1.04 X10^3/uL (0.83-4.51); Absolute Neutrophil Count 6.6 X10^3/uL (2.0-7.7); Basophil# 0.04 X10^3/uL; Basophil% 0.5 % (0-1); Eosinophils% 1.2 % (0-5); Hematocrit 36.9 % (37-47); Hemoglobin 11.7 g/dL (12.0-15.0); Lymphocyte # 1.04 X10^3/ul (0.83-4.51); Lymphocyte % 12.3 % (19-41); Mean Corp Hgb Conc 31.7 g/dL (32-36); Mean Corpuscular Hgb 30.4 pg (27.0-32.0); Mean Corpuscular Volume 95.8 fL (81-99); Mean Platelet Vol. 8.6 fl (6.2-12.0); Monocyte# 0.69 X10^3/uL; Monocyte% 8.1 % (0-10); NRBC Flagged by Analyzer 0 % (0-5); Neutrophil # 6.59 X10^3/uL (2.7-7.7); Neutrophil % 77.7 % (47-70); Platelet Count 231 K/mm3 (150-450); RBC Distribution Width CV 13.2 % (11.6-14.6); RBC Distribution Width SD 46.2 fl (35.1-43.9); Red Blood Count 3.85 M/mm3 (4.2-5.4); White Blood Count 8.5 K/mm3 (4.4-11.0)
--- OUTSIDE RECORDS SUMMARY | 2023-10-13 18:20 | XMS RPT_ITS | CCD ---
Author Name Unknown Address [address] [place] [address] Organization [facility] Care Team Providers Care Owner Oral Surgeon Name Role Phone Christopher Sandoval Primary Care Provider Geovanna Benites Unavailable Indra Rojas MD Unavailable [phone] Christopher Sandoval MD Primary Care Provider Christopher Sandoval MD Primary Care Provider Geovanna Benites MD Unavailable [phone] Indra Rojas MD Unavailable Geovanna Benites MD Unavailable Indra Rojas MD Unavailable Christopher Sandoval MD Primary Care Provider Christopher Sandoval MD Primary Care Provider Geovanna Benites MD Unavailable [phone] Christopher Sandoval MD Primary Care Provider Christopher Sandoval Unavailable Christopher Sandoval MD Primary Care Provider Christopher Fabian Attending Unavailable Lori, Dr. Christopher Murguia Primary Care Bianca Sandoval, Dr. Christopher Murguia Primary Care Christopher Cruz Attending Unavailable Lori, Dr. Christopher Murguia Primary Care Christopher Cruz Attending Unavailable Ramya Moreland Attending Unavailab le Lori, Dr. Christopher Murguia Primary Care Ramya Burlesonth Attending Unavailab Dr. Christopher Azul Primary Care Unav ailable GEOVANNA BENITES Attending Unavailable GEOVANNA BENITES Referring Unavailable ELDERBROCK, CHRISTOPHER Primary Care Unavailable Christopher Sandoval MD Primary Care Provider [phone] Bob HSIEH, Indra J Unavailable Lori HSIEH, Christopher Primary Care Provider Christopher Sandoval MD Primary Care Provider Geovanna Benites MD Unavailable Bob HSIEH, Indra J Unavailable [phone] Lori HSIEH, Christopher Primary Care Provider Christopher Sandoval MD Primary Care Provider [phone] GEOVANNA BENITES Attending Unavailable ELDERCAESAR, CHRISTOPHER Primary Care Unavailable ELDERCHRISTOPHER MAYNARD Referring Unavailable ELDERCAESAR, CHRISTOPHER Primary Care Unavailable GEOVANNA BENITES Attending Unavailable GEOVANNA BENITES Attending Unavailable ELDERBROCK, CHRISTOPHER Primary Care Unavailable DELMISGEOVANNA ROGEL Attending Unavailable ELDERBROCK, CHRISTOPHER Primary Care Unavailable ELDERBROCK, CHRISTOPHER Abebe Primary Care Unavailable ELDERBROCK, CHRISTOPHER Lomas Referring Unavailable ANNY HAWKINS Referring Unavailable ELDERBROCK, CHRISTOPHER Lomas Primary Care Unavailable ELDERBROALISSA, CHRISTOPHER Lomas Primary Care Unavailable COOPERRIDER II, JAN H Referring Unavailabl e ELDERBROCK, CHRISTOPHER Lomas Primary Care Unavailable COOPERRIDER II, JAN H Attending Unavailabl e ELDERBROALISSA, CHRISTOPHER Lomas Primary Care Unavailable KARI KATZ Attending Unavailable ELDERBROCK, CHRISTOPHER Lomas Primary Care Unavailable KARI KATZ Attending Unavailable ELDERBROCK, CHRISTOPHER Abebe Primary Care Unavailable MONA BONE Attending Unavailable ELDERBROCK, CHRISTOPHER Lomas Primary Care Unavailable KARI KATZ Attending Unavailable ELDERCAESAR, CHRISTOPHER Lomas Primary Care Unavailable ELDERBROCK, CHRISTOPHER Lomas Primary Care Unavailable ELDERBROCK, CHRISTOPHER Lomas Primary Care Unavailable DELMISGEOVANNA ROGEL Referring Unavailable ELDERBROCK, CHRISTOPHER Lomas Primary Care Unavailable ELDERBROCK, CHRISTOPHER Lomas Primary Care Unavailable ELDERCAESAR, CHRISTOPHER Lomas Attending Unavailable ELDERCAESAR, CHRISTOPHER Lomas Referring Unavailable ELDERBROCK, CHRISTOPHER Lomas Primary Care Unavailable ELDERBROCK, CHRISTOPHER Lomas Primary Care Unavailable COOPERRIDER II, JAN H Referring Unavailabl e COOPERRIDER II, JAN H Attending Unavailabl e ELDERBROCK, CHRISTOPHER D Primary Care Unavailable ELDERBROCK, CHRISTOPHER D Primary Care Unavailable ELDERBROCK, CHRISTOPHER D Primary Care Unavailable ELDERBROCK, CHRISTOPHER D Attending Unavailable DELMISGEOVANNA Referring Unavailable ELDERBROCK, CHRISTOPHER D Primary Care Unavailable ELDERBROCK, CHRISTOPHER D Primary Care Unavailable STAINBROOK JR., BREA Pinto Attending Unavaila ble ELDERBROCK, CHRISTOPHER D Referring Unavailable SELF, SELF Referring Unavailable STEFANIE, IVETT Attending Unavailable ELDERBROCK, CHRISTOPHER D Primary Care Unavailable SELF, SELF Referring Unavailable STEFANIE, IVETT Attending Unavailable ELDERBROCK, CHRISTOPHER D Primary Care Unavailable STEFANIE, IVETT Referring Unavailable ELDERBROCK, CHRISTOPHER D Primary Care Unavailable STEFANIE, IVETT Attending Unavailable SELF, SELF Referring Unavailable ELDERBROCK, CHRISTOPHER D Primary Care Unavailable STAINBROOK JR., BREA Pinto Attending Unavaila ble STAINBROOK JR., BREA Pinto Referring Unavaila ble STAINBROOK JR., BREA Pinto Attending Unavaila ble ELDERBROCK, CHRISTOPHER D Primary Care Unavailable SELF, SELF Referring Unavailable ELDERBROCK, CHRISTOPHER D Primary Care Unavailable STEFANIE, IVETT Attending Unavailable STEFANIE, IVETT Referring Unavailable ELDERBROCK, CHRISTOPHER D Primary Care Unavailable STEFANIE, IVETT Attending Unavailable STAINBROOK JR., BREA Pinto Attending Unavaila ble SELF, SELF Referring Unavailable ELDERBROCK, CHRISTOPHER D Primary Care Unavailable STAINBROOK JR., BREA Pinto Attending Unavaila ble SELF, SELF Referring Unavailable ELDERBROCK, CHRISTOPHER D Primary Care Unavailable ELDERBROCK, CHRISTOPHER D Primary Care Unavailable STAINBROOK JR., BREA Pinto Referring Unavaila ble STAINBROOK JR., BREA Pinto Attending Unavaila ble ELDERBROCK, CHRISTOPHER D Primary Care Unavailable STEFANIE, IVETT Referring Unavailable STEFANIE, IVETT Attending Unavailable ELDERBROCK, CHRISTOPHER D Primary Care Unavailable SELF, SELF Referring Unavailable STEFANIE, IVETT Attending Unavailable ELDERBROCK, CHRISTOPHER D Primary Care Unavailable STEFANIE, IVETT Referring Unavailable STEFANIE, IVETT Attending Unavailable ELDERBROCK, CHRISTOPHER Primary Care Unavailable MORGAN FANG Attending Unava ilable ELDERBROCK, CHRISTOPHER Primary Care Unavailable ELDERBROCK, CHRISTOPHER Primary Care Unavailable DELMISGEOVANNA ROGEL Referring Unavailable Allergies Allergy Classification Reported Allergen(s) Allergy Type Date of Onset Reaction(s) Facility Benzodiazepines (6 sources) diazePAM Drug Allergy 07-20-20 17 Seizures [facility] diphenhydrAMINE (6 sources) diphenhydrAMINE Drug Allergy 07-20-20 17 Shortness of Breath [facility] fluticasone / salmeterol (6 sources) fluticasone / salmeterol Drug Allergy 07-20-20 17 Depression [facility] Macrolides (antibiotic) (6 sources) Clarithromycin Drug Allergy 07-20-20 17 Fever [facility] Penicillins (antibiotic) (6 sources) Penicillins Drug Allergy 07-20-20 17 Rash [facility] Pentazocine (6 sources) Pentazocine Drug Allergy 07-20-20 [facility] Pro[facility] Inhibitors (5 sources) Esomeprazole Drug Allergy 01-20-20 [facility] Sulfonamides (antibiotic) (6 sources) Sulfonamides (Antibiotic) Drug Allergy 07-20-20 17 Rash [facility] Sulfur dioxide (6 sources) Sulfur dioxide Substance Allergy 07-20-20 17 Headache [facility] Unclassified (13 sources) *Adhesive Tape Propensity to adverse reactions 07-20-20 17 Itching [facility] Zinc Acetate (5 sources) Zinc Acetate Drug Allergy 01-20-20 [facility] (20 sources) Clarithromycin; Translations: [CLARITHROMYCIN] Drug Allergy 07-20-20 17 Fever [facility] (20 sources) diazePAM; Translations: [DIAZEPAM] Drug Allergy 11-27-19 14 Seizures, Other: See Comments [facility] (20 sources) diphenhydrAMINE; Translations: [DIPHENHYDRAMINE] Drug Allergy 01-20-20 [facility] (20 sources) Esomeprazole; Translations: [ESOMEPRAZOLE MAGNESIUM] Drug Allergy 01-20-20 [facility] (20 sources) fluticasone / salmeterol; Translations: [FLUTICASONE PROPION-SALMETEROL ] Drug Allergy 03-23-20 15 Mental Status Change [facility] (20 sources) Penicillins; Translations: [PENICILLINS] Propensity to adverse reactions to drug 12-02-19 09 Rash [facility] (20 sources) Pentazocine; Translations: [PENTAZOCINE LACTATE] Drug Allergy 12-02-19 09 Anaphylaxis [facility] (20 sources) Sulfonamides (Antibiotic); Translations: [SULFA (SULFONAMIDE ANTIBIOTICS)] Propensity to adverse reactions to drug 12-02-19 09 Rash [facility] (20 sources) Sulfur dioxide; Translations: [SULFUR DIOXIDE] Propensity to adverse reactions to drug 11-27-19 14 Headache, Other: See Comments [facility] (20 sources) Zinc Acetate; Translations: [ZINC ACETATE] Drug Allergy 01-20-20 20 [facility] (20 sources) diphenhydrAMINE Drug Allergy 03-08-20 10 Shortness of Breath [facility] (12 sources) fluticasone / salmeterol Drug Allergy 07-20-20 17 Depression [facility] (13 sources) Pentazocine Drug Allergy 07-20-20 17 Other: See Comments [facility] (9 sources) Sulfonamides (Antibiotic) Propensity to adverse reactions to drug 07-20-20 17 Rash [facility] (20 sources) Adhesive Tape; Translations: [ADHESIVE TAPE (ROSINS)] Allergy to substance 07-19-20 10 Contraindicati on-Medical Surgical [facility] (20 sources) Pegloticase; Translations: [PEGLOTICASE] Drug Allergy 12-31-19 Other: See Comments, Unknown [facility] (20 sources) no BP or venipunctures left arm [Other] Propensity to adverse reactions 06-23-20 11 [facility] (3 sources) Clarithromycin Propensity to adverse reactions to drug 07-20-20 17 Fever [facility] (3 sources) Diazepam Propensity to adverse reactions to drug 07-20-20 17 Seizures [facility] (3 sources) Sulfonamides (Antibiotic) Propensity to adverse reactions to drug 07-20-20 17 Rash [facility] (3 sources) Sulfur dioxide Propensity to adverse reactions to drug 07-20-20 17 Headache [facility] (1 source) diphenhydrAMINE; Translations: [DIPHENHYDRAMINE HCL] Drug Allergy 03-08-20 10 [facility] (1 source) OTHER; Translations: [OTHER] Propensity to adverse reactions (disorder) 06-23-20 11 [facility] Medications Current Medications Medication Drug Class(es) Dates Sig (Normalized) Sig (Original) acetaminophen 325 mg oral tablet (4 sources) Start: 05-06-2022 End: 05-09-2022 acetaminophen 650 mg tab(s) (TYLENOL) Completed/Discontinued Medications Medication Drug Class(es) Dates Sig (Normalized) Sig (Original) [id number] 200 actuat albuterol 0.09 mg/actuat metered dose inhaler (20 sources) beta2-Adrenergic Agonist Start: 08-31-2021 End: 06-01-2023 take 2 puff(s) by inhalation every four hours as needed for wheezing albuterol HFA (VENTOLIN HFA) 90 mcg/actuation inhaler Indications: Moderate persistent asthma without complication Inhale 2 Puffs as instructed every 4 hours as needed for wheezing/shortness of breath. 18 g 11 06/01/2023 Active Problems Active Problems Problem Classification Problem Date Documented Date Episodic/Chronic Acute cerebrovascular disease (13 sources) Cerebrovascular accident; Translations: [Cerebral infarction, unspecified] 07-20-2017 Chronic Administrative/socia l admission (6 sources) Impaired ability to transfer location; Translations: [Other symptoms involving nervous and musculoskeletal systems] Onset: 2 Episodic Asthma (20 sources) Asthma; Translations: [Unspecified asthma, uncomplicated] Onset: 9 07-20-2017 Chronic Blindness and vision defects (20 sources) Hypermetropia; Translations: [Hypermetropia, unspecified eye] Onset: 4 07-20-2017 Episodic Cancer of breast (20 sources) Malignant tumor of breast ; Translations: [Malignant neoplasm of unspecified site of unspecified female breast] 07-20-2017 Chronic Cataract (20 sources) H/O: artificial eye lens; Translations: [Presence of intraocular lens] Onset: 8 07-20-2017 Chronic Chronic kidney disease (8 sources) Chronic kidney disease stage 3B ; Translations: [Stage 3b chronic kidney disease] Onset: 1 Chronic Chronic kidney disease (2 sources) Chronic kidney disease; Translations: [Chronic kidney disease, stage 3b] Onset: 3 Complications of surgical procedures or medical care (13 sources) Bilateral cataracts; Translations: [Cataract (lens) fragments in eye following cataract surgery, bilateral] 07-20-2017 Episodic Congestive heart failure; nonhypertensive (20 sources) Congestive heart failure; Translations: [Heart failure, unspecified] Onset: 9 07-20-2017 Chronic Esophageal disorders (20 sources) Gastroesophageal reflux disease; Translations: [Gastro-esophageal reflux disease without esophagitis] Onset: 0 07-20-2017 Chronic Essential hypertension (20 sources) Essential hypertension; Translations: [Essential (primary) hypertension] Onset: 0 01-21-2020 Chronic Gout and other crystal arthropathies (20 sources) Bilateral chronic tophaceous gout of hands; Translations: [Chronic gout, unspecified, with tophus (tophi)] Onset: 6 Chronic Hypertension with complications and secondary hypertension (20 sources) Hypertensive heart and renal disease with (congestive) heart failure; Translations: [Hypertensive heart and chronic kidney disease with heart failure and stage 1 through stage 4 chronic kidney disease, or unspecified chronic kidney disease] Onset: 1 Chronic Immunizations and screening for infectious disease (4 sources) Vaccination needed; Translations: [Encounter for immunization] Episodic Inflammation; infection of eye (except that caused by tuberculosis or sexually transmitteddisease) (20 sources) Keratoconjunctivitis sicca; Translations: [Keratoconjunctivitis sicca, not specified as Sjogren's, right eye] Onset: 9 07-09-2019 Chronic Intestinal obstruction without hernia (1 source) Small bowel obstruction; Translations: [Unspecified intestinal obstruction, unspecified as to partial versus complete obstruction] Episodic Late effects of cerebrovascular disease (13 sources) Abnormal vision as a late effect of cerebrovascular disease; Translations: [Other sequelae of cerebral infarction] Onset: 2 Chronic Malaise and fatigue (12 sources) Asthenia; Translations: [Other malaise and fatigue] Onset: 2 Episodic Mycoses (5 sources) Onychomycosis; Translations: [Tinea unguium] Episodic Nonspecific chest pain (6 sources) Chest pain; Translations: [Chest pain, unspecified] Onset: 3 Episodic Nutritional deficiencies (7 sources) Vitamin D deficiency; Translations: [Vitamin D deficiency, unspecified] Onset: 2 09-14-2022 Chronic Nutritional deficiencies (20 sources) Cobalamin deficiency; Translations: [Deficiency of other specified B group vitamins] Onset: 5 07-20-2017 Episodic Open wounds of extremities (1 source) Injury of lower extremity; Translations: [Unspecified open wound, right lower leg, initial encounter] Episodic Osteoarthritis (20 sources) Osteoarthritis of joint of bilateral hands; Translations: [Primary osteoarthritis, right hand] Onset: 9 03-29-2021 Chronic Other aftercare (2 sources) Post-discharge follow-up; Translations: [Encounter for follow-up examination after completed treatment for conditions other than malignant neoplasm] Episodic Other aftercare (2 sources) Other intermediate accountant (current) drug therapy; Translations: [Other skilled nursing (current) drug therapy] Onset: 4 Episodic Other and ill-defined heart disease (20 sources) Takotsubo cardiomyopathy; Translations: [Takotsubo syndrome] Onset: 0 01-21-2020 Chronic Other and ill-defined heart disease (15 sources) Diastolic dysfunction; Translations: [Other ill-defined heart diseases] Onset: 0 01-21-2020 Chronic Other and ill-defined heart disease (2 sources) Takotsubo syndrome; Translations: [Takotsubo syndrome] Onset: 0 Chronic Other bone disease and musculoskeletal deformities (20 sources) Disorder of skeletal system; Translations: [Disorder of bone, unspecified] Onset: 9 07-20-2017 Episodic Other bone disease and musculoskeletal deformities (20 sources) Osteopenia; Translations: [Other specified disorders of bone density and structure, unspecified site] Onset: 5 07-20-2017 Episodic Other congenital anomalies (1 source) Porokeratosis; Translations: [Other specified congenital malformations of skin] Chronic Other connective tissue disease (1 source) Dysfunction of posterior tibial tendon; Translations: [Posterior tibial tendinitis, unspecified leg] Episodic Other connective tissue disease (1 source) Pain in right foot; Translations: [Pain in right foot] Episodic Other connective tissue disease (1 source) H/O: gout; Translations: [Personal history of other diseases of the musculoskeletal system and connective tissue] Episodic Other diseases of kidney and ureters (7 sources) Hyperparathyroidism due to renal insufficiency; Translations: [Secondary hyperparathyroidism of renal origin] Onset: 2 09-14-2022 Chronic Other diseases of kidney and ureters (2 sources) Secondary hyperparathyroidism of renal origin; Translations: [Secondary hyperparathyroidism of renal origin] Onset: 2 Chronic Other ear and sense organ disorders (1 source) Disorder of external ear; Translations: [Other specified disorders of right external ear] Episodic Other ear and sense organ disorders (1 source) Impacted cerumen in right ear; Translations: [Impacted cerumen, right ear] Episodic Other eye disorders (20 sources) Bilateral vitreous floaters; Translations: [Other vitreous opacities, bilateral] Onset: 6 07-20-2017 Chronic Other eye disorders (13 sources) Subconjunctival hemorrhage; Translations: [Conjunctival hemorrhage, unspecified eye] 07-20-2017 Episodic Other eye disorders (1 source) Keratoconjunctivitis sicca; Translations: [Dry eye syndrome of bilateral lacrimal glands] Episodic Other eye disorders (1 source) Subconjunctival hemorrhage of left eye; Translations: [Conjunctival hemorrhage, left eye] Episodic Other hereditary and degenerative nervous system conditions (20 sources) Essential tremor; Translations: [Essential tremor] Onset: 9 08-28-2017 Chronic Other lower respiratory disease (1 source) Lower respiratory tract infection; Translations: [Unspecified acute lower respiratory infection] 06-01-2023 Episodic Other lower respiratory disease (1 source) Unspecified acute lower respiratory infection; Translations: [Lower resp. tract infection] Onset: 3 Episodic Other nervous system disorders (16 sources) History of clinical finding in subject; Translations: [Personal history of other diseases of the nervous system and sense organs] 07-20-2017 Episodic Other nervous system disorders (3 sources) Tremor; Translations: [Tremor, unspecified] Onset: 3 08-02-2023 Episodic Other nervous system disorders (2 sources) Tremor, unspecified; Translations: [Tremor, unspecified] Onset: 3 Episodic Other nutritional; endocrine; and metabolic disorders (6 sources) Hypermagnesemia; Translations: [Hypermagnesemia] Onset: 2 09-14-2022 Chronic Other nutritional; endocrine; and metabolic disorders (2 sources) Other disorders of bilirubin metabolism; Translations: [Other disorders of bilirubin metabolism] Onset: 2 Chronic Other nutritional; endocrine; and metabolic disorders (1 source) Hypermagnesemia; Translations: [Hypermagnesemia] Onset: 2 Chronic Other upper respiratory infections (1 source) Acute upper respiratory infection; Translations: [Acute upper respiratory infection, unspecified] Episodic Peripheral and visceral atherosclerosis (20 sources) Vascular insufficiency of intestine; Translations: [Vascular disorder of intestine, unspecified] Onset: 6 07-20-2017 Chronic Pneumonia (except that caused by tuberculosis or sexually transmitted disease) (1 source) Bacterial pneumonia; Translations: [Unspecified bacterial pneumonia] Episodic Residual codes; unclassified (20 sources) Family history of cancer of colon; Translations: [Family history of malignant neoplasm of digestive organs] Onset: 0 07-20-2017 Episodic Residual codes; unclassified (1 source) Pain; Translations: [Pain, unspecified] Episodic Residual codes; unclassified (1 source) Edema of lower extremity; Translations: [Localized edema] Episodic Residual codes; unclassified (3 sources) H/O: regular medication; Translations: [Personal history of other drug therapy] Episodic Skin and subcutaneous tissue infections (5 sources) Cellulitis of skin; Translations: [Cellulitis, unspecified] Onset: 1 Episodic Unclassified (1 source) Acute cough; Translations: [Acute cough] Onset: 3 Unclassified (1 source) [facility] Physician Contact Required; Translations: [[facility] Physician Contact Required] Onset: 3 Viral infection (4 sources) Disease caused by 2019-nCoV; Translations: [COVID-19] Episodic Past or Other Problems Problem Classification Problem Date Documented Da te Episodic/Chronic Cancer of breast (20 sources) History of malignant neoplasm of breast; Translations: [Personal history of malignant neoplasm of breast] Onset: 12-01-2008 Episodic Chronic obstructive pulmonary disease and bronchiectasis (2 sources) Bronchitis; Translations: [Bronchitis, not specified as acute or chronic] Onset: 11-09-2022 Episodic Congestive heart failure; nonhypertensive (3 sources) Diastolic dysfunction; Translations: [Diastolic dysfunction] Onset: 01-21-2020 01-21-2020 Episodic Diabetes mellitus without complication (7 sources) Glycosuria; Translations: [Glycosuria] Onset: 09-14-2022 09-14-2022 Episodic Fever of unknown origin (2 sources) Fever; Translations: [Fever, unspecified] Onset: 08-05-2021 Episodic Fluid and electrolyte disorders (20 sources) Hyperkalemia; Translations: [Hyperkalemia] Onset: 03-29-2021 Resolved: 08-02-2023 03-29-2021 Episodic Genitourinary symptoms and ill-defined conditions (15 sources) Increased frequency of urination; Translations: [Frequency of micturition] Onset: 08-05-2021 Episodic Open wounds of extremities (1 source) Unspecified open wound, left lower leg, initial encounter; Translations: [Unspecified open wound, left lower leg, initial encounter] Onset: 09-17-2021 Episodic Other aftercare (17 sources) Long-term current use of antibiotic; Translations: [bed bug exterminator (current) use of antibiotics] Onset: 03-29-2021 03-29-2021 Episodic Other aftercare (18 sources) Long-term current use of aspirin; Translations: [bed bug exterminator (current) use of aspirin] Onset: 03-29-2021 03-29-2021 Episodic Other aftercare (20 sources) Patient encounter status; Translations: [skilled nursing (current) use of antithrombotics/antip latelets] Onset: 03-29-2021 Resolved: 07-30-2021 03-29-2021 Episodic Other aftercare (14 sources) Long-term current use of systemic steroid; Translations: [bed bug exterminator (current) use of systemic steroids] Onset: 03-29-2021 Resolved: 05-19-2021 03-29-2021 Episodic Other aftercare (2 sources) skilled nursing (current) use of antithrombotics/antip latelets; Translations: [skilled nursing (current) use of antithrombotics/antip latelets] Onset: 03-29-2021 Episodic Other aftercare (1 source) skilled nursing (current) use of antibiotics; Translations: [skilled nursing (current) use of antibiotics] Onset: 03-29-2021 Episodic Other aftercare (1 source) bed bug exterminator (current) use of aspirin; Translations: [bed bug exterminator (current) use of aspirin] Onset: 03-29-2021 Episodic Other circulatory disease (20 sources) History of cerebrovascular accident; Translations: [Personal history of transient ischemic attack (TIA), and cerebral infarction without residual deficits] Onset: 11-06-2009 06-19-2020 Episodic Other connective tissue disease (1 source) Pain in left leg; Translations: [Pain in left leg] Onset: 09-17-2021 Episodic Other diseases of kidney and ureters (1 source) Disorder of kidney and ureter, unspecified; Translations: [Disorder of kidney and ureter, unspecified] Onset: 09-17-2021 Episodic Other endocrine disorders (4 sources) Hormone increase; Translations: [Endocrine disorder, unspecified] Onset: 09-14-2022 09-14-2022 Episodic Other endocrine disorders (2 sources) Endocrine disorder, unspecified; Translations: [Endocrine disorder, unspecified] Onset: 09-14-2022 Episodic Other gastrointestinal disorders (20 sources) Urgent desire for stool; Translations: [Fecal urgency] Onset: 02-07-2019 02-07-2019 Episodic Other lower respiratory disease (5 sources) Hypercapnia; Translations: [Other abnormalities of breathing] Onset: 03-08-2023 Resolved: 08-02-2023 03-08-2023 Episodic Other lower respiratory disease (1 source) Shortness of breath; Translations: [SOB (shortness of breath)] Onset: 01-10-2023 Episodic Other lower respiratory disease (2 sources) Other abnormalities of breathing; Translations: [Other abnormalities of breathing] Onset: 03-08-2023 Episodic Other nervous system disorders (2 sources) Personal history of other diseases of the nervous system and sense organs; Translations: [Personal history of other diseases of the nervous system and sense organs] Onset: 07-20-2017 Episodic Other non-epithelial cancer of skin (13 sources) Malignant tumor of neck ; 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] Onset: 07-31-2017 Resolved: 08-03-2017 08-03-2017 Episodic Other nutritional; endocrine; and metabolic disorders (5 sources) Hyperbilirubinemia; Translations: [Other disorders of bilirubin metabolism] Onset: 09-14-2022 Resolved: 03-08-2023 09-14-2022 Chronic Other nutritional; endocrine; and metabolic disorders (13 sources) Hyperuricemia; Translations: [Hyperuricemia without signs of inflammatory arthritis and tophaceous disease] Onset: 03-29-2021 Resolved: 04-28-2021 03-29-2021 Episodic Other screening for suspected conditions (not mental disorders or infectious disease) (20 sources) Renal function tests abnormal; Translations: [Abnormal results of kidney function studies] Onset: 03-29-2021 Resolved: 08-02-2023 03-29-2021 Episodic Phlebitis; thrombophlebitis and thromboembolism (20 sources) H/O: Deep vein thrombosis; Translations: [Personal history of other venous thrombosis and embolism] Onset: 06-12-2015 06-19-2020 Episodic Residual codes; unclassified (1 source) Acquired absence of other specified parts of digestive tract; Translations: [Acquired absence of other specified parts of digestive tract] Onset: 08-05-2021 Episodic Residual codes; unclassified (7 sources) Personal history of other drug therapy; Translations: [Personal history of other drug therapy] Onset: 12-12-2022 Episodic Unclassified (1 source) [place] [facility] Physician Contact Required; Translations: [[place] [facility] Physician Contact Required] Onset: 02-15-2023 Results Test Name Value Interpretation Reference Range Facil it Vital Signs Date Time Vital Sign Value Performing Clinician Facility 08-23-2023 10:11-0500 Body mass index (BMI) [Ratio] 25.27 kg/m2 Ivett Mchugh MD Work Phone: [facility] 08-23-2023 10:11-0500 Body weight 63.69 kg Ivett Mchugh MD Work Phone: [facility] 08-23-2023 10:11-0500 Diastolic blood pressure 80 mm[Hg] Ivett Mchugh MD Work Phone: [facility] 08-23-2023 10:11-0500 Heart rate 82 /min Ivett Mchugh MD Work Phone: [facility] 08-23-2023 10:11-0500 SaO2% (BldA) [Mass fraction] 96 % Ivett Mchugh MD Work Phone: [facility] 08-23-2023 10:11-0500 Systolic blood pressure 120 mm[Hg] Ivett Mchugh MD Work Phone: [facility] 08-02-2023 10:20-0500 Body height 158.8 cm Brea Pandya Jr., DO Work Phone: [facility] 08-02-2023 10:20-0500 Body mass index (BMI) [Ratio] 24.86 kg/m2 Brea Pandya Jr., DO Work Phone: [facility] 08-02-2023 10:20-0500 Body temperature 97.39 [degF] Brea Pandya JrOtis, DO Work Phone: [facility] 08-02-2023 10:20-0500 Body weight 62.64 kg Brea Willsfaizan Otis, DO Work Phone: [facility] 08-02-2023 10:20-0500 Diastolic blood pressure 62 mm[Hg] Brea Ya ReynaOtis, DO Work Phone: [facility] [employer] [facility] 08-02-2023 10:20-0500 Heart rate 74 /min Brea Willsfaizan Mccray, DO Work Phone: [facility] 08-02-2023 10:20-0500 Respiratory rate 18 /min Brea Johannfaizan Mccray, DO Work Phone: [facility] 08-02-2023 10:20-0500 SaO2% (BldA) [Mass fraction] 97 % Brea Willsayanamartin ReynaOtis, DO Work Phone: [facility] 08-02-2023 10:20-0500 Systolic blood pressure 130 mm[Hg] Brea Willsayanamartin ReynaOtis, DO Work Phone: [facility] 06-13-2023 12:35-0400 Body height 154.9 cm Geovanna Benites MD Work Phone: [facility] 06-13-2023 12:35-0400 Body mass index (BMI) [Ratio] 26.72 kg/m2 Geovanna Benites MD Work Phone: [facility] 06-13-2023 12:35-0400 Body weight 64.14 kg Geovanna Benites MD Work Phone: [facility] 06-13-2023 12:35-0400 Diastolic blood pressure 65 mm[Hg] Geovanna Benites MD Work Phone: [facility] 06-13-2023 12:35-0400 Heart rate 77 /min Geovanna Benites MD Work Phone: [facility] 06-13-2023 12:35-0400 Systolic blood pressure 119 mm[Hg] Geovanna Benites MD Work Phone: [facility] 06-01-2023 14:35-0400 Body temperature 98.4 [degF] Kari Tannhof THORACIC SURGEON.ONLINE MERCHANDISING SPECIALIST Work Phone: [facility] 06-01-2023 14:35-0400 Body weight 64.41 kg Kari Petehof THORACIC SURGEON.ONLINE MERCHANDISING SPECIALIST Work Phone: [facility] 06-01-2023 14:35-0400 Diastolic blood pressure 72 mm[Hg] Kari Tannhof THORACIC SURGEON.ONLINE MERCHANDISING SPECIALIST Work Phone: [facility] 06-01-2023 14:35-0400 Heart rate 73 /min Kari Tannhof THORACIC SURGEON.ONLINE MERCHANDISING SPECIALIST Work Phone: [facility] 06-01-2023 14:35-0400 Respiratory rate 16 /min Kari Tannhof THORACIC SURGEON.ONLINE MERCHANDISING SPECIALIST Work Phone: [facility] 06-01-2023 14:35-0400 SaO2% (BldA) [Mass fraction] 97 % Kari Tannhof THORACIC SURGEON.ONLINE MERCHANDISING SPECIALIST Work Phone: [facility] 06-01-2023 14:35-0400 Systolic blood pressure 126 mm[Hg] Kari Tannhof THORACIC SURGEON.ONLINE MERCHANDISING SPECIALIST Work Phone: [facility] 05-10-2023 09:40-0400 Body mass index (BMI) [Ratio] 25.31 kg/m2 Ivett Mchugh MD Work Phone: [facility] 05-10-2023 09:40-0400 Body weight 63.78 kg Ivett Mchugh MD Work Phone: [facility] 05-10-2023 09:40-0400 Diastolic blood pressure 61 mm[Hg] Ivett Mchugh MD Work Phone: [facility] 05-10-2023 09:40-0400 Heart rate 56 /min Ivett Mchugh MD Work Phone: [facility] 05-10-2023 09:40-0400 SaO2% (BldA) [Mass fraction] 99 % Ivett Mchugh MD Work Phone: [employer] [facility] 05-10-2023 09:40-0400 Systolic blood pressure 110 mm[Hg] Ivett Mchugh MD [facility] 03-08-2023 11:12-0400 Body height 158.8 cm Brea Pandya Jr., DO Work Phone: [facility] 03-08-2023 11:12-0400 Body mass index (BMI) [Ratio] 25.34 kg/m2 Brea Pandya Jr., DO Work Phone: [employer] [facility] 03-08-2023 11:12-0400 Body temperature 97.81 [degF] Brea Pandya Jr., DO Work Phone: [employer] [facility] 03-08-2023 11:12-0400 Body weight 63.87 kg rBea Pandya Jr., DO Work Phone: [employer] [facility] 03-08-2023 11:12-0400 Diastolic blood pressure 60 mm[Hg] Brea Pandya Jr., DO Work Phone: [employer] [facility] 03-08-2023 11:12-0400 Systolic blood pressure 122 mm[Hg] Brea Pandya Jr., DO Work Phone: [employer] [facility] 01-04-2023 13:38-0400 Body mass index (BMI) [Ratio] 26.1 kg/m2 Ivett Mchugh MD Work Phone: [facility] 01-04-2023 13:38-0400 Body weight 65.77 kg Ivett Mchugh MD Work Phone: [facility] 01-04-2023 13:38-0400 Diastolic blood pressure 60 mm[Hg] Ivett Mchugh MD Work Phone: [facility] 01-04-2023 13:38-0400 Heart rate 71 /min Ivett Mchugh MD Work Phone: [facility] 01-04-2023 13:38-0400 SaO2% (BldA) [Mass fraction] 98 % Ivett Mchugh MD Work Phone: [facility] 01-04-2023 13:38-0400 Systolic blood pressure 130 mm[Hg] Ivett Mchugh MD Work Phone: [facility] 12-20-2022 12:34-0400 Body height 154.9 cm Geovanna Benites MD Work Phone: [facility] 12-20-2022 12:34-0400 Body mass index (BMI) [Ratio] 27.02 kg/m2 Geovanna Benites MD Work Phone: [facility] 12-20-2022 12:34-0400 Body weight 64.86 kg Geovanna Benites MD Work Phone: [facility] 12-20-2022 12:34-0400 Diastolic blood pressure 68 mm[Hg] Geovanna Benites MD Work Phone: [facility] 12-20-2022 12:34-0400 Heart rate 81 /min Geovanna Benites MD Work Phone: [facility] 12-20-2022 12:34-0400 Systolic blood pressure 126 mm[Hg] Geovanna Benites MD Work Phone: [facility] 11-16-2022 16:37-0500 Body temperature 99.61 [degF] Kari Katz THORACIC SURGEON.ONLINE MERCHANDISING SPECIALIST Work Phone: [facility] 11-16-2022 16:37-0500 Body weight 64.41 kg Kari Katz THORACIC SURGEON.ONLINE MERCHANDISING SPECIALIST Work Phone: [facility] 11-16-2022 16:37-0500 Diastolic blood pressure 78 mm[Hg] Kari Katz THORACIC SURGEON.ONLINE MERCHANDISING SPECIALIST Work Phone: [facility] 11-16-2022 16:37-0500 Heart rate 82 /min Kari Tannhof THORACIC SURGEON.ONLINE MERCHANDISING SPECIALIST Work Phone: [facility] 11-16-2022 16:37-0500 Respiratory rate 16 /min Kari Tannhof THORACIC SURGEON.ONLINE MERCHANDISING SPECIALIST Work Phone: [facility] 11-16-2022 16:37-0500 SaO2% (BldA) [Mass fraction] 95 % Kari Tannhof THORACIC SURGEON.ONLINE MERCHANDISING SPECIALIST Work Phone: [facility] 11-16-2022 16:37-0500 Systolic blood pressure 122 mm[Hg] Kari Tannhof THORACIC SURGEON.ONLINE MERCHANDISING SPECIALIST Work Phone: [facility] 11-09-2022 13:35-0500 Body weight 63.96 kg Kari Tannhof THORACIC SURGEON.ONLINE MERCHANDISING SPECIALIST Work Phone: [facility] 11-09-2022 13:35-0500 Diastolic blood pressure 70 mm[Hg] Kari Tannhof THORACIC SURGEON.ONLINE MERCHANDISING SPECIALIST Work Phone: [facility] 11-09-2022 13:35-0500 Heart rate 81 /min Kari Tannhof THORACIC SURGEON.ONLINE MERCHANDISING SPECIALIST Work Phone: [facility] 11-09-2022 13:35-0500 Respiratory rate 16 /min Kari Tannhof THORACIC SURGEON.ONLINE MERCHANDISING SPECIALIST Work Phone: [facility] 11-09-2022 13:35-0500 SaO2% (BldA) [Mass fraction] 96 % Kari Tannhof THORACIC SURGEON.ONLINE MERCHANDISING SPECIALIST Work Phone: [facility] 11-09-2022 13:35-0500 Systolic blood pressure 118 mm[Hg] Kari Tannhof THORACIC SURGEON.ONLINE MERCHANDISING SPECIALIST Work Phone: [facility] 08-31-2022 13:19-0500 Body mass index (BMI) [Ratio] 26.1 kg/m2 Ivett Mchugh MD Work Phone: [employer] [facility] 08-31-2022 13:19-0500 Body weight 65.77 kg Ivett Mchugh MD Work Phone: [facility] 08-31-2022 13:19-0500 Diastolic blood pressure 82 mm[Hg] Ivett Mchugh MD Work Phone: [facility] 08-31-2022 13:19-0500 Heart rate 77 /min Ivett Mchugh MD Work Phone: [facility] 08-31-2022 13:19-0500 SaO2% (BldA) [Mass fraction] 99 % Ivett Mchugh MD Work Phone: [facility] 08-31-2022 13:19-0500 Systolic blood pressure 122 mm[Hg] Ivett Mchugh MD Work Phone: [facility] 07-01-2022 10:35-0400 Body weight 63.37 kg Christopher Sandoval MD Work Phone: [facility] 07-01-2022 10:35-0400 Diastolic blood pressure 72 mm[Hg] Christopher Sandoval MD Work Phone: [facility] 07-01-2022 10:35-0400 Heart rate 66 /min Christopher Sandoval MD Work Phone: [facility] 07-01-2022 10:35-0400 Respiratory rate 16 /min Christopher Sandoval MD Work Phone: [facility] 07-01-2022 10:35-0400 Systolic blood pressure 120 mm[Hg] Christopher Sandoval MD Work Phone: [facility] 06-11-2022 12:42-0400 Body temperature 97.7 [degF] Lasha Sylvester MD Work Phone: [facility] 06-11-2022 12:42-0400 Body weight 63.78 kg Lasha Sylvester MD Work Phone: [facility] 06-11-2022 12:42-0400 Diastolic blood pressure 60 mm[Hg] Lasha Sylvester MD Work Phone: [facility] 06-11-2022 12:42-0400 Heart rate 85 /min Lasha Sylvester MD Work Phone: [facility] 06-11-2022 12:42-0400 Respiratory rate 22 /min Lasha Sylvester MD Work Phone: [facility] 06-11-2022 12:42-0400 SaO2% (BldA) [Mass fraction] 98 % Lasha Sylvester MD Work Phone: [facility] 06-11-2022 12:42-0400 Systolic blood pressure 130 mm[Hg] Lasha Sylvester MD Work Phone: [facility] 06-07-2022 13:42-0400 Body height 154.9 cm Geovanna Benites MD Work Phone: [facility] 06-07-2022 13:42-0400 Body mass index (BMI) [Ratio] 26.83 kg/m2 Geovanna Benites MD Work Phone: [facility] 06-07-2022 13:42-0400 Body weight 64.41 kg Geovanna Benites MD Work Phone: [facility] 06-07-2022 13:42-0400 Diastolic blood pressure 65 mm[Hg] Geovanna Benites MD Work Phone: [facility] 06-07-2022 13:42-0400 Heart rate 80 /min Geovanna Benites MD Work Phone: [facility] 06-07-2022 13:42-0400 Systolic blood pressure 114 mm[Hg] Goevanna Benites MD Work Phone: [facility] 06-03-2022 11:23-0400 Body weight 64.41 kg Kari Katz THORACIC SURGEON.ONLINE MERCHANDISING SPECIALIST Work Phone: [facility] 06-03-2022 11:23-0400 Diastolic blood pressure 56 mm[Hg] Kari Olivof THORACIC SURGEON.ONLINE MERCHANDISING SPECIALIST Work Phone: [facility] 06-03-2022 11:23-0400 Heart rate 86 /min Kari Tannhof THORACIC SURGEON.ONLINE MERCHANDISING SPECIALIST Work Phone: [facility] 06-03-2022 11:23-0400 Respiratory rate 16 /min Kari Tannhof THORACIC SURGEON.ONLINE MERCHANDISING SPECIALIST Work Phone: [facility] 06-03-2022 11:23-0400 SaO2% (BldA) [Mass fraction] 96 % Kari Tannhof THORACIC SURGEON.ONLINE MERCHANDISING SPECIALIST Work Phone: [facility] 06-03-2022 11:23-0400 Systolic blood pressure 118 mm[Hg] Kari Tannhof THORACIC SURGEON.ONLINE MERCHANDISING SPECIALIST Work Phone: [facility] 06-01-2022 11:12-0400 Body weight 64.41 kg Kari Tannhof THORACIC SURGEON.ONLINE MERCHANDISING SPECIALIST Work Phone: [facility] 06-01-2022 11:12-0400 Diastolic blood pressure 60 mm[Hg] Kari Tannhof THORACIC SURGEON.ONLINE MERCHANDISING SPECIALIST Work Phone: [facility] 06-01-2022 11:12-0400 Heart rate 84 /min Kari Tannhof THORACIC SURGEON.ONLINE MERCHANDISING SPECIALIST Work Phone: [facility] 06-01-2022 11:12-0400 Respiratory rate 20 /min Kari Tannhof THORACIC SURGEON.ONLINE MERCHANDISING SPECIALIST Work Phone: [facility] 06-01-2022 11:12-0400 SaO2% (BldA) [Mass fraction] 99 % Kari Tannhof THORACIC SURGEON.ONLINE MERCHANDISING SPECIALIST Work Phone: [facility] 06-01-2022 11:12-0400 Systolic blood pressure 150 mm[Hg] Kari Tannhof THORACIC SURGEON.ONLINE MERCHANDISING SPECIALIST Work Phone: [facility] 05-19-2022 10:36-0400 Body weight 62.14 kg Kari Tannhof THORACIC SURGEON.ONLINE MERCHANDISING SPECIALIST Work Phone: [facility] 05-19-2022 10:36-0400 Diastolic blood pressure 64 mm[Hg] Kari Tannhof THORACIC SURGEON.ONLINE MERCHANDISING SPECIALIST Work Phone: [facility] 05-19-2022 10:36-0400 Heart rate 86 /min Kari Tannhof THORACIC SURGEON.ONLINE MERCHANDISING SPECIALIST Work Phone: [facility] 05-19-2022 10:36-0400 Respiratory rate 16 /min Kari Katz THORACIC SURGEON.ONLINE MERCHANDISING SPECIALIST Work Phone: [facility] 05-19-2022 10:36-0400 SaO2% (BldA) [Mass fraction] 99 % Kari Olivof THORACIC SURGEON.ONLINE MERCHANDISING SPECIALIST Work Phone: [facility] 05-19-2022 10:36-0400 Systolic blood pressure 110 mm[Hg] Kari Olivof THORACIC SURGEON.ONLINE MERCHANDISING SPECIALIST Work Phone: [facility] 05-18-2022 13:14-0400 Body mass index (BMI) [Ratio] 24.82 kg/m2 Ivett Mchugh MD Work Phone: [facility] 05-18-2022 13:14-0400 Body weight 62.55 kg Ivett Mchugh MD Work Phone: [facility] 05-18-2022 13:14-0400 Diastolic blood pressure 77 mm[Hg] Ivett Mchugh MD Work Phone: [facility] 05-18-2022 13:14-0400 Heart rate 81 /min Ivett Mchugh MD Work Phone: [facility] 05-18-2022 13:14-0400 SaO2% (BldA) [Mass fraction] 99 % Ivett Mchugh MD Work Phone: [facility] 05-18-2022 13:14-0400 Systolic blood pressure 115 mm[Hg] Ivett Mchugh MD Work Phone: [facility] 05-06-2022 11:30-0400 Body temperature 98.4 [degF] Covid 2 Work Phone: [facility] 05-06-2022 11:30-0400 Diastolic blood pressure 58 mm[Hg] Covid 2 Work Phone: [facility] 05-06-2022 11:30-0400 Heart rate 79 /min Covid 2 Work Phone: [facility] 05-06-2022 11:30-0400 Respiratory rate 20 /min Covid 2 Work Phone: [facility] 05-06-2022 11:30-0400 SaO2% (BldA) [Mass fraction] 100 % Covid 2 Work Phone: [facility] 05-06-2022 11:30-0400 Systolic blood pressure 150 mm[Hg] Covid 2 Work Phone: [facility] 05-05-2022 11:36-0400 Body temperature 98.8 [degF] Doreen Bogner PA-C Work Phone: [facility] 05-05-2022 11:36-0400 Body weight 62.51 kg Doreen Bogner PA-C Work Phone: [facility] 05-05-2022 11:36-0400 Diastolic blood pressure 74 mm[Hg] Doreen Bogner PA-C Work Phone: [facility] 05-05-2022 11:36-0400 Heart rate 74 /min Doreen Bogner PA-C Work Phone: [facility] 05-05-2022 11:36-0400 Respiratory rate 18 /min Doreen Bogner PA-C Work Phone: [facility] 05-05-2022 11:36-0400 SaO2% (BldA) [Mass fraction] 98 % Doreen Bogner PA-C Work Phone: [facility] 05-05-2022 11:36-0400 Systolic blood pressure 136 mm[Hg] Doreen Bogner PA-C Work Phone: [facility] 05-03-2022 11:14-0400 Body temperature 99.5 [degF] Ronni Holland APRN.CNP Work Phone: [facility] 05-03-2022 11:14-0400 Body weight 63.05 kg Ronni Pendlebury THORACIC SURGEON.ONLINE MERCHANDISING SPECIALIST Work Phone: [facility] 05-03-2022 11:14-0400 Diastolic blood pressure 72 mm[Hg] Ronni Pendlebury THORACIC SURGEON.ONLINE MERCHANDISING SPECIALIST Work Phone: [facility] 05-03-2022 11:14-0400 Heart rate 86 /min Ronni Pendlebury THORACIC SURGEON.ONLINE MERCHANDISING SPECIALIST Work Phone: [facility] 05-03-2022 11:14-0400 Respiratory rate 16 /min Ronni Pendlebury THORACIC SURGEON.ONLINE MERCHANDISING SPECIALIST Work Phone: [facility] 05-03-2022 11:14-0400 SaO2% (BldA) [Mass fraction] 96 % Ronni Pendlebury THORACIC SURGEON.ONLINE MERCHANDISING SPECIALIST Work Phone: [facility] 05-03-2022 11:14-0400 Systolic blood pressure 124 mm[Hg] Ronni Pendlebury THORACIC SURGEON.ONLINE MERCHANDISING SPECIALIST Work Phone: [facility] 04-29-2022 11:57-0400 Body weight 63.96 kg Kari Freemanhof THORACIC SURGEON.ONLINE MERCHANDISING SPECIALIST Work Phone: [facility] 04-29-2022 11:57-0400 Diastolic blood pressure 60 mm[Hg] Kari Tannhof THORACIC SURGEON.ONLINE MERCHANDISING SPECIALIST Work Phone: [facility] 04-29-2022 11:57-0400 Heart rate 72 /min Kari Tannhof THORACIC SURGEON.ONLINE MERCHANDISING SPECIALIST Work Phone: [facility] 04-29-2022 11:57-0400 Respiratory rate 20 /min Kari Tannhof THORACIC SURGEON.ONLINE MERCHANDISING SPECIALIST Work Phone: [facility] 04-29-2022 11:57-0400 SaO2% (BldA) [Mass fraction] 98 % Kari Tannhof THORACIC SURGEON.ONLINE MERCHANDISING SPECIALIST Work Phone: [facility] 04-29-2022 11:57-0400 Systolic blood pressure 152 mm[Hg] Kari Tannhof THORACIC SURGEON.ONLINE MERCHANDISING SPECIALIST Work Phone: [facility] 04-21-2022 09:55-0400 Body weight 64.41 kg Kari Freemanhof THORACIC SURGEON.ONLINE MERCHANDISING SPECIALIST Work Phone: [facility] 04-21-2022 09:55-0400 Diastolic blood pressure 66 mm[Hg] Kari Tannhof THORACIC SURGEON.ONLINE MERCHANDISING SPECIALIST Work Phone: [facility] 04-21-2022 09:55-0400 Heart rate 76 /min Kari Tannhof THORACIC SURGEON.ONLINE MERCHANDISING SPECIALIST Work Phone: [facility] 04-21-2022 09:55-0400 Respiratory rate 20 /min Kari Tannhof THORACIC SURGEON.ONLINE MERCHANDISING SPECIALIST Work Phone: [facility] 04-21-2022 09:55-0400 SaO2% (BldA) [Mass fraction] 97 % Karibarbi Freemanhof THORACIC SURGEON.ONLINE MERCHANDISING SPECIALIST Work Phone: [facility] 04-21-2022 09:55-0400 Systolic blood pressure 122 mm[Hg] Kari Tannhof THORACIC SURGEON.ONLINE MERCHANDISING SPECIALIST Work Phone: [facility] 03-15-2022 17:09-0400 Body temperature 97.59 [degF] John Humberto THORACIC SURGEON.ONLINE MERCHANDISING SPECIALIST Work Phone: [facility] 03-15-2022 17:09-0400 Body weight 64.59 kg John Humberto THORACIC SURGEON.ONLINE MERCHANDISING SPECIALIST Work Phone: [facility] 03-15-2022 17:09-0400 Diastolic blood pressure 74 mm[Hg] John Humberto THORACIC SURGEON.ONLINE MERCHANDISING SPECIALIST Work Phone: [facility] 03-15-2022 17:09-0400 Heart rate 102 /min John Humberto THORACIC SURGEON.ONLINE MERCHANDISING SPECIALIST Work Phone: [facility] 03-15-2022 17:09-0400 Respiratory rate 16 /min John Humberto THORACIC SURGEON.ONLINE MERCHANDISING SPECIALIST Work Phone: [facility] 03-15-2022 17:09-0400 SaO2% (BldA) [Mass fraction] 99 % John Humberto THORACIC SURGEON.ONLINE MERCHANDISING SPECIALIST Work Phone: [facility] 03-15-2022 17:09-0400 Systolic blood pressure 128 mm[Hg] John Paul FABIANO Work Phone: [facility] 03-15-2022 13:37-0400 Diastolic blood pressure 72 mm[Hg] Geovanna Benites MD Work Phone: [facility] 03-15-2022 13:37-0400 Heart rate 70 /min Geovanna Benites MD Work Phone: [facility] 03-15-2022 13:37-0400 Systolic blood pressure 135 mm[Hg] Geovanna Benites MD Work Phone: [facility] 03-15-2022 13:30-0400 Body height 154.9 cm Geovanna Benites MD Work Phone: [facility] 03-15-2022 13:30-0400 Body mass index (BMI) [Ratio] 27.02 kg/m2 Geovanna Benites MD Work Phone: [facility] 03-15-2022 13:30-0400 Body weight 64.86 kg Geovanna Benites MD Work Phone: [facility] 03-10-2022 07:29-0400 Body height 158.8 cm Brea Pandya Jr., DO Work Phone: [facility] 03-10-2022 07:29-0400 Body mass index (BMI) [Ratio] 26.28 kg/m2 Brea Pandya Jr., DO Work Phone: [facility] 03-10-2022 07:29-0400 Body weight 66.22 kg Brea Pandya Jr., DO Work Phone: [facility] 03-10-2022 07:29-0400 Diastolic blood pressure 62 mm[Hg] Brea Pandya Jr., DO Work Phone: [facility] 03-10-2022 07:29-0400 Heart rate 69 /min Brea Pandya Jr., DO Work Phone: [facility] 03-10-2022 07:29-0400 SaO2% (BldA) [Mass fraction] 98 % Brea Pandya Jr., DO Work Phone: [facility] 03-10-2022 07:29-0400 Systolic blood pressure 120 mm[Hg] Brea Pandya Jr., DO Work Phone: [facility] 12-30-2021 16:08-0400 Body weight 65.05 kg Christopher Sandoval MD Work Phone: [facility] 12-30-2021 16:08-0400 Diastolic blood pressure 70 mm[Hg] Christopher Sandoval MD Work Phone: [facility] 12-30-2021 16:08-0400 Heart rate 64 /min Christopher Sandoval MD Work Phone: [facility] 12-30-2021 16:08-0400 Respiratory rate 16 /min Christopher Sandvoal MD Work Phone: [facility] 12-30-2021 16:08-0400 Systolic blood pressure 134 mm[Hg] Christopher Sandoval MD Work Phone: [facility] 12-29-2021 11:04-0400 Body mass index (BMI) [Ratio] 25.94 kg/m2 Ivett Mchugh MD Work Phone: [facility] 12-29-2021 11:04-0400 Body weight 65.36 kg Ivett Mchugh MD Work Phone: [facility] 12-29-2021 11:04-0400 Diastolic blood pressure 70 mm[Hg] Ivett Mchugh MD Work Phone: [facility] 12-29-2021 11:04-0400 Heart rate 75 /min Ivett Mchugh MD Work Phone: [facility] 12-29-2021 11:04-0400 SaO2% (BldA) [Mass fraction] 96 % Ivett Mchugh MD Work Phone: [facility] 12-29-2021 11:04-0400 Systolic blood pressure 125 mm[Hg] Ivett Mchugh MD Work Phone: [facility] 05-07-2021 16:12-0400 Body temperature 98.71 [degF] [facility] [address] [place] [address] 05-07-2021 16:12-0400 Diastolic blood pressure 64 mm[Hg] [facility] [address] [place] [address] 05-07-2021 16:12-0400 Heart rate 72 /min [facility] [address] [place] [address] 05-07-2021 16:12-0400 Respiratory rate 16 /min [facility] [address] [place] [address] 05-07-2021 16:12-0400 SaO2% (BldA) [Mass fraction] 97 % [facility] [address] [place] [address] 05-07-2021 16:12-0400 Systolic blood pressure 130 mm[Hg] [facility] [address] [place] [address] 04-28-2021 11:43-0400 Body height 158.8 cm Brea Pandya Jr., DO Work Phone: [phone] [place] [address] 04-28-2021 11:43-0400 Body mass index (BMI) [Ratio] 23.04 kg/m2 Brea Pandya Jr., DO Work Phone: [facility] 04-28-2021 11:43-0400 Body temperature 97.2 [degF] Brea Pandya Jr., DO Work Phone: [facility] 04-28-2021 11:43-0400 Body weight 58.06 kg Brea Pandya Jr., DO Work Phone: [facility] 04-28-2021 11:43-0400 Diastolic blood pressure 64 mm[Hg] Brea Pandya Jr., DO Work Phone: [facility] 04-28-2021 11:43-0400 Heart rate 66 /min Brea Pandya Jr., DO Work Phone: [facility] 04-28-2021 11:43-0400 SaO2% (BldA) [Mass fraction] 93 % Brea Pandya Jr., DO Work Phone: [facility] 04-28-2021 11:43-0400 Systolic blood pressure 122 mm[Hg] Brea Pandya Jr., DO Work Phone: [facility] 04-23-2021 16:29-0400 Body temperature 98.4 [degF] [facility] [address] [place] [address] 04-23-2021 16:29-0400 Diastolic blood pressure 65 mm[Hg] [facility] [address] [place] [address] 04-23-2021 16:29-0400 Heart rate 75 /min [facility] [address] [place] [address] 04-23-2021 16:29-0400 Respiratory rate 16 /min [facility] [address] [place] [address] 04-23-2021 16:29-0400 SaO2% (BldA) [Mass fraction] 97 % [facility] [address] [place] [address] 04-23-2021 16:29-0400 Systolic blood pressure 130 mm[Hg] [facility] [address] [place] [address] 04-09-2021 16:57-0400 Body temperature 98.29 [degF] [facility] [address] [place] [address] 04-09-2021 16:57-0400 Diastolic blood pressure 65 mm[Hg] [facility] [address] [place] [address] 04-09-2021 16:57-0400 Heart rate 67 /min [facility] [address] [place] [address] 04-09-2021 16:57-0400 Respiratory rate 16 /min [facility] [address] [place] [address] 04-09-2021 16:57-0400 SaO2% (BldA) [Mass fraction] 96 % [facility] [address] [place] [address] 04-09-2021 16:57-0400 Systolic blood pressure 120 mm[Hg] [facility] [address] [place] [address] 03-01-2021 11:32-0400 Body height 154.9 cm Geovanna Benites MD Work Phone: [facility] 03-01-2021 11:32-0400 Body mass index (BMI) [Ratio] 25.89 kg/m2 Geovanna Benites MD Work Phone: [facility] 03-01-2021 11:32-0400 Body weight 62.14 kg Geovanna Benites MD Work Phone: [facility] 03-01-2021 11:32-0400 Diastolic blood pressure 69 mm[Hg] Geovanna Benites MD Work Phone: [facility] 03-01-2021 11:32-0400 Heart rate 71 /min Geovanna Benites MD Work Phone: [facility] 03-01-2021 11:32-0400 Systolic blood pressure 135 mm[Hg] Geovanna Benites MD Work Phone: [facility] 03-18-2020 12:58-0400 BMI (Body Mass Index) 26.23 kg/m2 Geovanna Benites [facility] 03-18-2020 12:58-0400 Body weight 62.96 kg Geovanna Delmis [facility] 03-18-2020 12:58-0400 BP Diastolic 71 mm[Hg] Geovanna Delmis [facility] 03-18-2020 12:58-0400 BP Systolic 121 mm[Hg] Geovanna [facility] 03-18-2020 12:58-0400 Height 154.9 cm Geovanna [facility] 03-18-2020 12:58-0400 Pulse (Heart Rate) 76 /min Geovanna Benites [facility] Encounters Encounter Date Encounter Type Care Provider Facility Start: 02-07-2024 ambulatory [facility] Start: 10-04-2023 End: 10-08-2023 ambulatory [facility] Start: 08-23-2023 ambulatory [facility] Start: 08-23-2023 End: 08-23-2023 Office outpatient visit 25 minutes Ivett Mchugh MD Work Phone: [facility] 2 Procedures Date Procedure Procedure Detail Performing Clinician Start: 07-22-2023 INFLUENZA VACCINE, P RSV FREE, AGE 65+ YR, HIGH DOSE, QUADRIVALENT (FLUZONE HIGH-DOSE) Steve Yuen MD Work Phone: Start: 06-13-2023 Ecg routine ecg w/le ast 12 lds w/i&r Geovanna Benites MD Work Phone: Start: 03-23-2023 PFIZER-BIONTECH COVI D-19 BIVALENT VACCINE, AGE 12+ YR Christopher Sandoval MD Work Phone: Start: 12-20-2022 Ecg routine ecg w/le ast 12 lds w/i&r Geovanna Benites MD Work Phone: Start: 07-19-2022 PFIZER-BIONTECH COVI D-19 BIVALENT BOOSTER VACCINE, AGE 12+ YR Christopher Sandoval MD Work Phone: Start: 07-09-2022 INFLUENZA SEASONAL QUADRIVALENT HIGH DOSE AGE 65+ Steve Yuen MD Work Phone: Start: 05-03-2022 Urnls dip stick/tabl et rgnt auto w/o microscopy Dinah Moreira THORACIC SURGEON.ONLINE MERCHANDISING SPECIALIST Work Phone: Start: 03-15-2022 Ecg routine ecg w/le ast 12 lds w/i&r Geovanna Benites MD Work Phone: Start: 02-17-2022 PFIZER-BIONTECH COVI D-19 VACCINE, AGE 12+ YR (DELUNA TOP) Christopher Sandoval MD Work Phone: Start: 01-13-2022 Radex foot complete minimum 3 views Mona Bone Work Phone: Start: 03-01-2021 Ecg routine ecg w/le ast 12 lds w/i&r Geovanna Benites MD Work Phone: Start: 03-01-2021 Echo tthrc r-t 2d w/wom-mode compl spec&colr abebe Benites MD Work Phone: Start: 03-18-2020 12 lead ECG Geovanna Artis Work Phone: History of bilateral mastectomy History of bilateral mastectomy Christopher Sandoval MD Work Phone: Plan of Treatment Date Care Activity Detail Author Start: 07-24-2030 Tetanus vaccination [facility] Start: 07-24-2030 Urine microalbumin profile [facility] Start: 01-02-2029 Tetanus vaccination Tetanus: Every 10yrs [facility] Start: 06-29-2026 Diabetes Screening Diabetes Screening [facility] Start: 12-30-2025 DIABETES SCREEN DIABETES SCREEN [facility] Start: 12-30-2025 Diabetes Screening Diabetes Screening [facility] Start: 05-03-2025 DIABETES SCREEN DIABETES SCREEN [facility] Start: 08-16-2024 Potassium [Moles/volume] in Serum or Plasma POTASSIUM [facility] Start: 07-18-2024 Potassium [Moles/volume] in Serum or Plasma POTASSIUM [facility] Start: 05-02-2024 Potassium [Moles/volume] in Serum or Plasma POTASSIUM [facility] Start: 04-07-2024 DIABETES SCREEN DIABETES SCREEN [facility] Start: 02-29-2024 Potassium [Moles/volume] in Serum or Plasma POTASSIUM [facility] Start: 02-07-2024 End: 02-07-2024 Patient encounter procedure 02/07/2024 10:00 AM EDT Office Visit [facility] [address] [place] [id number] Ya Mccray, Brea Pinto, [address] [place] [address] [facility] Start: 01-17-2024 End: 08-02-2024 Complete blood count with white cell differential, automated CBC, EDIF, PLATELET Lab Routine 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 Elevated parathyroid hormone Gout with manifestations Gouty arthropathy, chronic, with tophi Secondary renal hyperparathyroidism Tremor 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 Abnormal renal function test Antiplatelet or antithrombotic long-term use History of tremor bed bug exterminator (current) use of antibiotics bed bug exterminator (current) use of aspirin Expected: 01/17/2024 (Approximate), Expires: 08/02/2024 [facility] Immunizations Immunization Date Immunization Notes Care Provider Fa cility 07-22-2023 influenza (HD-IIV4) vaccine, age 65+ yr, high dose, quadrivalent, PF (FLUZONE HIGH-DOSE) Immunization [place] Work Phone: [facility] 07-22-2023 influenza virus vaccine, unspecified formulation Immunization [place] Work Phone: [facility] 07-12-2023 COVID-19 vaccine, ag e 12+ yr, season (PFIZER-BIONTECH) Immunization [place] Work Phone: [facility] Work Phone: 03-23-2023 COVID-19 vaccine, ag e 12+ yr, bivalent (PFIZER-BIONTECH) Wa Nurse Work Phone: [facility] Work Phone: 10-07-2022 zoster vaccine recombinant Christopher Sandoval MD Work Phone: [facility] 07-19-2022 COVID-19 booster vaccine, age 12+ yr, bivalent (PFIZER-BIONTECH) Wa Nurse Work Phone: [facility] Work Phone: 07-09-2022 influenza, high-dose , quadrivalent vaccine (FLUZONE HIGH DOSE QUADRIVALENT) Immunization [place] Work Phone: [facility] 07-09-2022 influenza virus vaccine, unspecified formulation Ivett Mchugh MD Work Phone: [facility] 02-17-2022 COVID-19 vaccine, ag e 12+ yr (PFIZER-BIONTECH - DELUNA TOP) Wa Nurse Work Phone: [facility] Work Phone: 06-08-2021 influenza, seasonal, injectable, preservative free Christopher Sandoval MD Work Phone: [facility] 06-08-2021 influenza virus vaccine, unspecified formulation Ivett Mchugh MD Work Phone: [facility] 06-07-2021 influenza, high-dose , quadrivalent vaccine (FLUZONE HIGH DOSE QUADRIVALENT) Christopher Sandoval MD Work Phone: [facility] 11-20-2020 COVID-19 vaccine, fu ll dose (MODERNA) Christopher Sandoval MD Work Phone: [facility] 11-04-2020 COVID-19 vaccine, fu ll dose (MODERNA) Christopher Sandoval MD Work Phone: [facility] 10-23-2020 COVID-19 vaccine, fu ll dose (MODERNA) Christopher Sandoval MD Work Phone: [facility] 10-07-2020 COVID-19 vaccine, fu ll dose (MODERNA) Christopher Sandoval MD Work Phone: [facility] 07-24-2020 tetanus toxoid, redu divine diphtheria toxoid, and acellular pertussis vaccine, adsorbed Christopher Sandoval MD Work Phone: [facility] 06-23-2020 influenza virus vaccine, unspecified formulation Christopher Sandoval MD Work Phone: [facility] 06-23-2020 influenza, high-dose , quadrivalent vaccine (FLUZONE HIGH DOSE QUADRIVALENT) Christopher Sandoval MD Work Phone: [facility] 07-25-2019 zoster vaccine recombinant Christopher Sandoval MD Work Phone: [facility] 07-25-2019 zoster vaccine, unspecified formulation Ivett Mchugh MD Work Phone: [facility] 07-06-2019 influenza, high dose seasonal, preservative-free Christopher Sandoval MD Work Phone: [facility] 07-02-2019 influenza, seasonal, injectable, preservative free Christopher Sandoval MD Work Phone: [facility] 01-02-2019 tetanus and diphther ia toxoids, adsorbed, preservative free, for adult use (5 Lf of tetanus toxoid and 2 Lf of diphtheria toxoid) Christopher Sandoval MD Work Phone: [facility] 06-22-2018 influenza, high dose seasonal, preservative-free Christopher Sandoval MD Work Phone: [facility] Work Phone: 07-27-2017 tetanus and diphther ia toxoids, adsorbed, preservative free, for adult use (5 Lf of tetanus toxoid and 2 Lf of diphtheria toxoid) Christopher Sandoval MD Work Phone: [facility] 06-20-2017 influenza, high dose seasonal, preservative-free Christopher Sandoval MD Work Phone: [facility] 07-19-2016 influenza, high dose seasonal, preservative-free Christopher Sandoval MD Work Phone: [facility] 09-04-2015 pneumococcal conjuga te vaccine, 13 valent Christopher Sandoval MD Work Phone: [facility] 06-18-2014 pneumococcal polysaccharide vaccine, 23 valent Christopher Sandoval MD Work Phone: [facility] 09-03-2009 novel [id number], preservative-free, injectable Christopher Sandoval MD Work Phone: [facility] 12-01-2008 zoster vaccine, live Christopher saenz MD Work Phone: [facility] 11-16-2006 pneumococcal polysaccharide vaccine, 23 valent Mi Nurse Work Phone: [facility] Payers Date Payer Category Payer Medicare MMO [facility] [facility] MM MANAGED MEDICARE PPO xxxxxxx 2019-Present xxxxxxx [id number] 2015 Medicare [id number]. [id number] 2015 Medicare [id number]. [id number] 2015 Medicare [id number] 2015 Unknown [id number]. 1.13.159.2.7.3. [id number] 1938 Unknown [id number] 2.16.840.1.286789.3.579.2.1068 1938 Unknown [id number] 2.16.840.1.274760.3.579.2.1068 1938 Unknown [id number] 2.16.840.1.152810.3.579.2.1068 1938 Unknown [id number] 2.16.840.1.604437.3.579.2.1068 1938 Unknown [id number] 2.16.840.1.109741.3.579.2.1068 1938 Unknown [id number] 2.16.840.1.689270.3.579.2. 1938 Unknown [id number] 2.16.840.1.731867.3.579.2. 1938 Unknown [id number] 2.16840.1.440242.3.579.2 1938 Unknown [id number] 2.16.840.1.691655.3.579.2. 1938 Unknown [id number] 2.16.840.1.453317.3.579.2. 1938 Unknown [id number] 2.16.840.1.053477.3.579.2. 1938 Unknown [id number] 2.16840.1.457224.3.579.2. 1938 Unknown [id number] 2.16.840.1.338240.3.579.2. 1938 Unknown [id number] 2.16.840.1.518583.3.579.2. 1938 Unknown [id number] 2.16.840.1.753463.3.579.2. 1938 Unknown [id number] 2.16.840.1.078690.3.579.2. 1938 Unknown [id number] 2.16.840.1.596985.3.579.2.983 1938 Unknown [id number] 2.16.840.1.900341.3.579.2.983 1938 Unknown [id number] 2.16.840.1.980583.3.579.2.983 1938 Unknown [id number] 2.16.840.1.053493.3.579.2.983 1938 Unknown [id number] 2.16.840.1.096654.3.579.2.983 1938 Unknown [id number] 2.16.840.1.971084.3.579.2.983 1938 Unknown [id number] 2.16.840.1.606594.3.579.2.983 1938 Unknown [id number] 2.16.840.1.852621.3.579.2.983 1938 Unknown [id number] 2.16.840.1.935683.3.579.2.903 1938 Unknown [id number] 2.16.840.1.777988.3.579.2.903 1938 Unknown [id number] 2.16.840.1.029542.3.579.2.903 Social History Date Type Detail Facility Start: 03-18-2020 End: 09-14-2022 Tobacco smoking status OHIS Never smoker [facility] Start: 03-18-2020 End: 06-13-2023 Alcohol intake Lifetime non-drinker (finding) [facility] Start: 01-20-2020 End: 05-04-2022 History SDOH Alcohol Frequency 1 [facility] Start: 1940 Sex Assigned At Not on file [facility] Start: 12-20-2021 End: 12-16-2022 Exposure to SARS-CoV-2 (event) Not sure [facility] Start: 03-18-2020 End: 09-14-2022 Tobacco use and exposure Never used [facility] Start: 03-29-2021 End: 08-23-2023 Alcohol intake Current non-drinker of alcohol (finding) [facility] Start: 06-18-2020 End: 05-04-2022 History SDOH Social Connections Phone 5 [facility] Start: 06-18-2020 End: 05-04-2022 History SDOH Social Connections Confucianism 3 [facility] Start: 06-18-2020 End: 05-04-2022 History SDOH Social Connections Membership 2 [facility] Start: 06-18-2020 Education 12 [facility] Start: 1940 Sex Assigned At Female [facility] Start: 01-20-2020 End: 08-02-2023 Cigarette pack-years [facility] Start: 05-04-2022 History SDOH Alcohol Std Drinks 0 [facility] Start: 05-04-2022 History SDOH Physical Activity DPW 4 [facility] Start: 03-18-2020 End: 08-02-2023 Alcohol Use Disorder Identification Test - Consumption [AUDIT-C] [facility] How often to you hav e a drink containing alcohol? Never [facility] Average Number of Drinks Not on file [facility] Start: 06-20-2017 Gender identity Identifies as female gender (finding) [facility] Start: 05-11-2019 Sexual orientation Heterosexual (finding) [facility] Do you belong to any clubs or organizations such as congregational groups, unions, fraternal or athletic groups, or school groups? Yes [facility] Are you now , , , , never or living with a partner? [facility] Do you feel stress - tense, restless, nervous, or anxious, or unable to sleep at night because your mind is troubled all the time - these days [OSQ] Not at all [facility] (I/We) worried wheth er (my/our) food would run out before (I/we) got money to buy more. Never true [facility] In the past 12 month s, was there a time when you were not able to pay the mortgage or rent on time? No [facility] Clinical Notes 05-26-2016 to 08-23-2023 Ivett Mchugh MD - 08/23/2023 10:15 AM Conrado Pandya Jr., DO - 08/02/2023 10:30 AM ESTAddendum Note - Kari Katz APRN.ONLINE MERCHANDISING SPECIALIST - 07/10/2023 9:09 AM EDTPatient InstructionsPatient Instructions Note Date & Type Note Facility 08-23-2023 History of Present illness Narrative DAILY PROGRESS NOTE Admit Date: (Not on file) Date of Evaluation: 0:18 AM [facility] @[facility]@ IMPRESSION AND PLAN: 80 y/o female with history of CVA, CHF, GERD, asthma, gout and CKD III is here for CKD care. 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 Continue with torsemide 10mg PO Qday. Continue with farxiga. Will get renal panel. 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 Uric acid 11.2 -> 4.6 She is on uloric 3) Chronic normocytic anemia: H and H 11.8 -> 12.3 -> 12.6 -> 11.5 -> 12.8 -> 13.2 -> 12.6 and 35.1 -> 37.7 -> 37.6 -> 34.7 -> 39.2 -> 39.6 -> 38.6 Last colonoscopy 2018 Will get CBC. 4) Hyperparathyroid PTH 133.7 -> 82.1 Vitamin D 29.5 -> 35.6 Continue with calcitriol. 5) Transaminitis ALT 20 / AST 69 Will repeat LFT SUBJECTIVE: Patient seen and examined. Chart, medications, labs reviewed. Appointment on 08/16/2023 Component Date Value Ref Range Status WBC (WHITE BLOOD COUNT) 08/16/2023 6.6 3.6 - 11.0 10*3/uL Final RBC 08/16/2023 4.12 4.0 - 5.4 10*6/uL Final HEMOGLOBIN (HGB) 08/16/2023 12.6 12.0 - 16.0 G/DL Final HEMATOCRIT (HCT) 08/16/2023 38.6 36.0 - 48.0 % Final MEAN CELL VOLUME 08/16/2023 93.7 80.0 - 100.0 FL Final Mean Cell HGB 08/16/2023 30.6 26.0 - 35.0 PG Final MEAN CELL HGB CONCENTRATION 08/16/2023 32.6 27.0 - 37.0 G/DL Final RBC DISTRIBUTION 08/16/2023 14.3 11.5 - 14.5 % Final PLATELET COUNT 08/16/2023 250 130 - 400 10*3/uL Final MEAN PLATELET VOLUME 08/16/2023 6.6 (L) 7.4 - 11.0 FL Final DIFFERENTIAL TYPE 08/16/2023 AUTO DIFF % Final NEUTROPHILS 08/16/2023 73.2 37.0 - 75.0 % Final LYMPHOCYTE 08/16/2023 17.0 (L) 20.0 - 55.0 % Final MONOCYTE % 08/16/2023 7.5 0.0 - 10.0 % Final EOSINOPHIL % 08/16/2023 1.6 0.0 - 11.0 % Final BASOPHIL % 08/16/2023 0.7 0.0 - 2.0 % Final Absolute Neutrophil Count 08/16/2023 4.9 1.4 - 6.5 10*3/uL Final LYMPHOCYTES, ABSOLUTE 08/16/2023 1.1 (L) 1.2 - 3.4 10*3/uL Final MONOCYTES, ABSOLUTE 08/16/2023 0.5 0.0 - 0.7 10*3/uL Final ABSOLUTE EOSINOPHIL COUNT 08/16/2023 0.1 0.0 - 0.7 10*3/uL Final ABSOLUTE BASOPHIL COUNT 08/16/2023 0.0 0.0 - 0.2 10*3/uL Final MAGNESIUM 08/16/2023 2.7 (H) 1.6 - 2.3 MG/DL Final Glucose 08/16/2023 100 70 - 100 MG/DL Final Comment: NORMAL <100 mg/dL PREDIABETES 101-126 mg/dL DIABETES 126 mg/dL or higher BUN 08/16/2023 49 (H) 7 - 20 MG/DL Final CREATININE SERUM 08/16/2023 1.57 (H) 0.70 - 1.20 MG/DL Final SODIUM 08/16/2023 136 (L) 137 - 145 MMOL/L Final POTASSIUM 08/16/2023 4.7 3.5 - 5.1 MMOL/L Final CHLORIDE 08/16/2023 104 98 - 107 MMOL/L Final Please note: Triglyceride levels of 600mg/dL or higher may positively bias chloride results by approximately 2.1 mmol CARBON DIOXIDE (CO2) 08/16/2023 28 22 - 30 MMOL/L Final Albumin 08/16/2023 4.3 3.5 - 5.0 G/dl Final CALCIUM 08/16/2023 9.4 8.4 - 10.2 MG/DL Final PHOSPHORUS 08/16/2023 3.7 2.5 - 4.5 MG/DL Final ESTIMATED GFR, NON AMER 08/16/2023 33 ml/min/1.73sq.m Final ESTIMATED GFR, 08/16/2023 40 ml/min/1.73sq.m Final GFR COMMENT 08/16/2023 Average GFR for 70+ years old = 75. Final Comment: Chronic Kidney disease, GFR = <60. Kidney failure, GFR = <15. The GFR estimate is not adjusted for extreme body surface area or acute process, nor has it been validated for women or ethnic groups other than and . PROTEIN MG/DL-URINE 08/16/2023 12 0 - 12 MG/DL Final CREATININE, MG/DL, URINE 08/16/2023 42.8 MG/DL Final NO NORMAL VALUES ESTABLISHED FOR RANDOM SPECIMENS PROTEIN/CREAT RATIO, URINE 08/16/2023 0.3 Final Comment: REFERENCE RANGES <0.2 NORMAL 0.2-3.5 NON-NEPHROTIC >3.5 NEPHROTIC COLOR, URINE 08/16/2023 YELLOW YELLOW Final APPEARANCE, URINE 08/16/2023 CLEAR CLEAR Final Specific [place], Urine 08/16/2023 1.010 1.010 - 1.025 Final PH URINE 08/16/2023 5.5 5.0 - 7.0 Final Urine Protein 08/16/2023 NEGATIVE NEGATIVE mg/dl Final GLUCOSE, URINE 08/16/2023 250 (A) NEGATIVE mg/dl Final KETONES, URINE 08/16/2023 NEGATIVE NEGATIVE mg/dl Final BILIRUBIN, URINE 08/16/2023 NEGATIVE NEGATIVE Final BLOOD, URINE DIPSTICK 08/16/2023 SMALL (A) NEGATIVE Final NITRITES, URINE 08/16/2023 NEGATIVE NEGATIVE Final UROBILINOGEN, URINE 08/16/2023 0.2 0.2 - 1.0 E.U./dL Final LEUKOCYTE ESTERASE, URINE 08/16/2023 MODERATE (A) NEGATIVE Final SODIUM, URINE RANDOM 08/16/2023 31 30 - 90 MMOL/L Final WBC, URINE 08/16/2023 10 TO 20 NEGATIVE /HPF Final RBC, URINE 08/16/2023 1 TO 5 NEGATIVE /HPF Final Epithelial Cells UA 08/16/2023 10 TO 20 /HPF Final Mucus 08/16/2023 NEGATIVE NEGATIVE Final BACTERIA, URINE 08/16/2023 4+ (A) NEGATIVE Final CRYSTALS, URINE 08/16/2023 NONE NONE Final CASTS, URINE 08/16/2023 NONE NONE /LPF Final COMMENT, URINE 08/16/2023 REFLEX CULTURE PER ESTABLISHED CRITERIA. Final SPECIMEN DESCRIPTION 08/16/2023 URINE - OTHER Final UA Dipstick 08/16/2023 LEUKOCYTE POSITIVE Final NITRITE NEGATIVE RESULT-CULT 08/16/2023 NO PATHOGENS ISOLATED Final Testing performed at [place], [place] [address] Report Status 08/16/2023 08/18/2023 Final FINAL LABS Labs-ABAntonio @ABGROUNDS@ Labs-CBC @[email or web address]@ Labs-Chem 7([facility]) @[facility]@ Labs-Coags WBC (WHITE BLOOD COUNT) Date Value Ref Range Status 08/16/2023 6.6 3.6 - 11.0 10*3/uL Final 07/18/2023 6.1 3.6 - 11.0 10*3/uL Final 05/02/2023 6.1 3.6 - 11.0 10*3/uL Final HEMOGLOBIN (HGB) Date Value Ref Range Status 08/16/2023 12.6 12.0 - 16.0 G/DL Final 07/18/2023 12.6 12.0 - 16.0 G/DL Final 05/02/2023 13.2 12.0 - 16.0 G/DL Final HEMATOCRIT (HCT) Date Value Ref Range Status 08/16/2023 38.6 36.0 - 48.0 % Final 07/18/2023 38.4 36.0 - 48.0 % Final 05/02/2023 39.6 36.0 - 48.0 % Final PLATELET COUNT Date Value Ref Range Status 08/16/2023 250 130 - 400 10*3/uL Final 07/18/2023 271 130 - 400 10*3/uL Final 05/02/2023 248 130 - 400 10*3/uL Final SODIUM Date Value Ref Range Status 08/16/2023 136 (L) 137 - 145 MMOL/L Final 07/18/2023 138 137 - 145 MMOL/L Final 05/02/2023 136 (L) 137 - 145 MMOL/L Final CHLORIDE Date Value Ref Range Status 08/16/2023 104 98 - 107 MMOL/L Final Comment: Please note: Triglyceride levels of 600mg/dL or higher may positively bias chloride results by approximately 2.1 mmol 07/18/2023 99 98 - 107 MMOL/L Final Comment: Please note: Triglyceride levels of 600mg/dL or higher may positively bias chloride results by approximately 2.1 mmol 05/02/2023 99 98 - 107 MMOL/L Final Comment: Please note: Triglyceride levels of 600mg/dL or higher may positively bias chloride results by approximately 2.1 mmol BUN Date Value Ref Range Status 08/16/2023 49 (H) 7 - 20 MG/DL Final 07/18/2023 53 (H) 7 - 20 MG/DL Final 05/02/2023 59 (H) 7 - 20 MG/DL Final POTASSIUM Date Value Ref Range Status 08/16/2023 4.7 3.5 - 5.1 MMOL/L Final 07/18/2023 4.5 3.5 - 5.1 MMOL/L Final 05/02/2023 4.6 3.5 - 5.1 MMOL/L Final CREATININE SERUM Date Value Ref Range Status 08/16/2023 1.57 (H) 0.70 - 1.20 MG/DL Final 07/18/2023 1.65 (H) 0.70 - 1.20 MG/DL Final 05/02/2023 1.51 (H) 0.70 - 1.20 MG/DL Final Glucose Date Value Ref Range Status 08/16/2023 100 70 - 100 MG/DL Final Comment: NORMAL <100 mg/dL PREDIABETES 101-126 mg/dL DIABETES 126 mg/dL or higher 07/18/2023 131 (H) 70 - 100 MG/DL Final Comment: NORMAL <100 mg/dL PREDIABETES 101-126 mg/dL DIABETES 126 mg/dL or higher 05/02/2023 115 (H) 70 - 100 MG/DL Final Comment: NORMAL <100 mg/dL PREDIABETES 101-126 mg/dL DIABETES 126 mg/dL or higher PROTEIN, TOTAL Date Value Ref Range Status 07/18/2023 7.1 6.3 - 8.2 GM/DL Final 02/28/2023 7.5 6.3 - 8.2 GM/DL Final 08/22/2022 7.0 6.3 - 8.2 GM/DL Final Albumin Date Value Ref Range Status 08/16/2023 4.3 3.5 - 5.0 G/dl Final 07/18/2023 4.4 3.5 - 5.0 G/dl Final 05/02/2023 4.4 3.5 - 5.0 G/dl Final AST Date Value Ref Range Status 07/18/2023 33 14 - 36 IU/L Final 02/28/2023 69 (H) 14 - 36 IU/L Final 08/22/2022 20 15 - 41 IU/L Final ALT Date Value Ref Range Status 07/18/2023 26 <35 IU/L Final 02/28/2023 20 <35 IU/L Final 08/22/2022 15 14 - 54 IU/L Final BILIRUBIN, TOTAL Date Value Ref Range Status 07/18/2023 1.1 0.2 - 1.3 MG/DL Final CALCIUM Date Value Ref Range Status 08/16/2023 9.4 8.4 - 10.2 MG/DL Final 07/18/2023 9.2 8.4 - 10.2 MG/DL Final 05/02/2023 9.0 8.4 - 10.2 MG/DL Final PHOSPHORUS Date Value Ref Range Status 08/16/2023 3.7 2.5 - 4.5 MG/DL Final 05/02/2023 4.1 2.5 - 4.5 MG/DL Final 12/26/2022 4.3 2.5 - 4.5 MG/DL Final MAGNESIUM Date Value Ref Range Status 08/16/2023 2.7 (H) 1.6 - 2.3 MG/DL Final 05/02/2023 2.9 (H) 1.6 - 2.3 MG/DL Final 12/26/2022 2.6 (H) 1.6 - 2.3 MG/DL Final Lab Results Component Value Date CREATURINE 42.8 08/16/2023 CREATSERUM 1.57 (H) 08/16/2023 BUN 49 (H) 08/16/2023 SODIUM 136 (L) 08/16/2023 POTASSIUM 4.7 08/16/2023 CHLORIDE 104 08/16/2023 CO2 28 08/16/2023 ROS: Constitution: No fever, no chill HEENT: No headache, no sinus issues CV: No chest pain, no palpitation Lung: No cough, No SOB Abd: No diarrhea, no constipation Neuro: No seizure, no loss of consciousness Heme: No bleeding, no bruise PHYSICAL EXAM: Wt Readings from Last 3 Encounters: 08/23/23 63.7 kg (140 lb 6.4 oz) 08/02/23 62.6 kg (138 lb 1.6 oz) 05/10/23 63.8 kg (140 lb 9.6 oz) Temp Readings from Last 3 Encounters: 08/02/23 97.4 F (36.3 C) (Temporal) 03/08/23 97.8 F (36.6 C) (Temporal) 09/14/22 97.3 F (36.3 C) BP Readings from Last 3 Encounters: 08/23/23 120/80 08/02/23 130/62 05/10/23 110/61 Pulse Readings from Last 3 Encounters: 08/23/23 82 08/02/23 74 05/10/23 56 Gen: NAD, lying in bed, conversant HEENT: Atraumatic, PERRLA, moist membrane CV: RRR, nl S1 and S2, no m/g/r Lung: CTAB, no wheezing, no crackle Abd: +BS, nontender, no distended Ext: No rash, no clubbing, no cyanosis. No edema. Neuro: CNII-XII grossly intact, 5/5 strength, normal tone Skin: Warm and dry documented in this encounter [facility] 08-02-2023 History of Present illness Narrative Images from the original note were not included. Subjective History of Present Illness Krystexxa started 04/05/2021. Krystexxa had been helping and not bothering the patient. Krystexxa stopped due to elevated uric acid on Krystexxa. Presence of Pain: denies pain/discomfort. Total time spent in this encounter was 34 minutes. 5 month follow up. Energy level is that she gets tired a lot quicker and she rests off and on and it is great actually. Joint pain is the knees. Back pain is yes. Tophi are gone. All questions answered for the patient and Objective Review of Systems Constitutional: Positive for fatigue. HENT: Negative. Eyes: Negative. Respiratory: Negative. Cardiovascular: Negative. Gastrointestinal: Negative. Endocrine: Negative. Genitourinary: Negative. Musculoskeletal: Positive for arthralgias and back pain. Skin: Tophi both hands - much better. And now gone. Wound RLE: is healed Allergic/Immunologic: Negative. Neurological: Positive for tremors. Hematological: Negative. Vitals: There were no vitals taken for this visit. Physical Exam Vitals and nursing note reviewed. Constitutional: Appearance: Normal appearance. HENT: Head: Normocephalic and atraumatic. Right Ear: External ear normal. Left Ear: External ear normal. Nose: Nose normal. Mouth/Throat: Mouth: Mucous membranes are moist. Pharynx: Oropharynx is clear. Comments: Eyes: Extraocular Movements: Extraocular movements intact. Conjunctiva/sclera: Conjunctivae normal. Pupils: Pupils are equal, round, and reactive to light. Comments: Glasses Cardiovascular: Rate and Rhythm: Normal rate and regular rhythm. Pulses: Radial pulses are 2+ on the right side and 2+ on the left side. Heart sounds: Normal heart sounds. Comments: Stockings B/L Pulmonary: Effort: Pulmonary effort is normal. Breath sounds: Normal breath sounds. Abdominal: General: Bowel sounds are normal. Palpations: Abdomen is soft. Musculoskeletal: Right shoulder: Decreased range of motion. Left shoulder: Decreased range of motion. Right upper arm: Normal. Left upper arm: Normal. Right elbow: Normal. Left elbow: Normal. Right forearm: Normal. Left forearm: Normal. Right wrist: Deformity present. Decreased range of motion. Left wrist: Deformity present. Decreased range of motion. Right hand: Deformity present. Decreased range of motion. Decreased strength. Left hand: Deformity present. Decreased range of motion. Decreased strength. Arms: Cervical back: Neck supple. Thoracic back: Deformity present. Decreased range of motion. Right upper leg: Normal. Left upper leg: Normal. Right knee: Crepitus present. Decreased range of motion. Left knee: Crepitus present. Decreased range of motion. Right lower le+ Edema present. Left lower le+ Edema present. Right ankle: Decreased range of motion. Left ankle: Decreased range of motion. Legs: Comments: Kyphosis T-spine. B/L LE stockings. Skin: General: Skin is warm and dry. Comments: Tophi hands R thumb and R index - resolved Thin skin hyperpigmentation both hands Neurological: Mental Status: She is alert and oriented to person, place, and time. Cranial Nerves: Cranial nerves 2-12 are intact. Sensory: Sensation is intact. Motor: Weakness and tremor present. Gait: Gait abnormal. 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 Cane Neurological Exam Mental Status Alert. Oriented to person, place, and time. Cranial Nerves CN II: Vision test: Glasses . CN III, IV, : Extraocular movements intact bilaterally. Pupils equal round and reactive to light bilaterally. Sensory Normal sensation. Coordination Tremors. Gait Abnormal gait. 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 Cane. Assessment and Plan Encounter Diagnoses Name Primary? 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 Time was spent with the patient today in education in re: to all their medical conditions. A complete H&P&ROS was obtained and is either in this note or in the EHR. Please do not hesitate to contact me with any questions or concerns re: this patient. Past History Past medical, surgical, family, and social histories have been reviewed and updated with the patient today and are located elsewhere in the medical record. 2. Thank you for allowing me to participate in the care of your patient. With your permission I would like to F/U with your patient. 3. G6PD level was normal at 271 4. Krystexxa stopped due to elevated uric acid times 2 5. Patient is on chronic ATB therapy PRN for UTI caused by intercourse 6. Patient given educational material on gout in the form of a pamphlet from the arthritis foundation. Patient should remain on Uloric life long. Would monitor CBC, LFT, Renal func, uric acid level every 6 - 12 months as long as patient on Uloric. Patient can take prednisone 5 mg 8 po q AM times one day decrease by one pill q day until off on a PRN basis any acute attack of gout. 7. uloric caused HTN - but patient is going to try again as that is not a typical side effect and now patient is tolerating Uloric 8. Allopurinol affected her kidneys and was stopped 9. Glucose was elevated at 104 and still is at 131 10. Nephro F/U per Dr. Mchugh 11. Rx given for colchicine 0.6 1 pill a day can decrease to 1 pill every other day if diarrhea - patient declines 12. Patient on her own stopped Prednisone due to stomach upset and then stopped it again due to HTN. 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 Sodium was low at 136 and is now normal at 138 15. Uric acid was normal at 3.2 and still is at 3.8 16. 90 day supply on medications 17. Patient told can take tylenol 18. At patient's request will set up with Dr. Brooks re: Tremors 19. Cardiology F/U per Dr. Geovanna Benites 20. Lab on ro about 01/17/2024 21. UA showed no protein and 500 mg/dl of glucose and trace lysed blood with nor infection and 0 RBC/HPF. 22. Magnesium was elevated at 2.6 23. Intact PTH was elevated at 133.7 24. AST was elevated at 69 and patient is going to F/u with PCP 25. Vit D under care of Dr. Mchugh 26. CO2 was elevated at 31 and is now normal at 29 27. At patient's request will Follow-up with me in 6 months 28. Call if need Rx's documented in this encounter [facility] 07-10-2023 Miscellaneous Notes Addended by: KARI KATZ on: 07/10/2023 09:09 AM Modules accepted: Orders The following approved medication requests have been transmitted electronically. Requested Prescriptions Signed Prescriptions Disp Refills fluconazole (DIFLUCAN) 150 mg tablet 2 tablet 0 Sig: Take 1 tablet by mouth one time only for 1 dose. Repeat in 3 days as needed. Kari Katz APRN.CNP See mychart message. Dina Green Ma documented in this encounter [facility] 07-06-2023 Miscellaneous Notes Noted; will plan repeat contrast enhanced CT or MRI of pancreas in one year Christopher Sandoval MD Received incidental finding report on pt. 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 Recommendation to follow up with CT or MRI in 1 year. See report on desk. Dina Green Ma documented in this encounter [facility] 06-23-2023 Note HNO ID: [id number] Author: Christopher Sandoval MD Service: ? Author Type: Physician Type: Progress Notes Filed: 06/23/2023 12:08 PM Note Text: Chief Complaint Patient presents with: F/U 6 Month HPI Ruth Donato is a 82 year old female who presents here today for 6 month follow up. No bowel, Gi, or urinary issues. Hx of small bowel obstructions. GERD: Sx stable on Prilosec 20 mg daily prn. OA AND Gout: Yahir hands and feet. Using Uloric 40 mg neeraj and Prednisone prn. Doing really well at this time. Follows with Dr. Pandya, Rheum. CVA: Taking Plavix 75 mg daily. No falls, uses cane due to balance and essential tremor. CKD: Stage 3a or 3b; follows with Dr. Mchugh, Qa Reviewer at [facility]. Notes kidneys have worsened some and she was advised to increase fluid intake. Having difficulty between following Cardiology and Nephrology instructions. Pt taking Calcifediol 30 mcg once daily and Calcitriol 0.25 mcg once daily. HTN AND CHF: Checks BP at home, states this has been doing great. Denies any dizziness or sob. Report she followed up with Cardiology a week ago due to having chest pressure cement block sensation on her chest, when using leg press. Her Torsemide was increased, which improved her symptoms, but caused her to become dehydrated and ended up going to the ED. Taking Aldactone 25 mg once daily, Plavix 75 mg daily and Losartan 25 mg daily. Is taking Farxiga 10 mg daily and Demadex 10 mg 1 tab po daily alternating 2 tabs every other day. Following with Wood Flooring Specialist at [facility] Dr. Benitse every 4-6 months. Weighs herself daily at home. Uses Compression stockings asking which strength she should use. Asthma: Always has difficulty with breathing with activity. Feels the water retention is to blame as well. Currently taking Symbicort 2 puffs bid, Albuterol for nebulizer prn, Albuterol inhaler prn and Singulair 10 mg daily. Does not follow with Pulmonary. Had spirometry done 01/08 which was normal.. Pt was in [facility] ER on 06/18/23 with nausea, vomiting, and diarrhea. Was worried about possible bowel obstruction. She had normal labs and CT scan. Was given Ondansetron 4 mg to use prn nausea/vomiting. Thought her sx were possibly due to the recent doubling of the Torsemide. (Reports in scanned doc). 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 HM - Shingrix up to date. Receiving Flu shot and Covid booster in two weeks. Asking if she should receive RSV vaccine. Past medical history, appointments, medications, allergies reviewed. Previous Medical History PAST MEDICAL HISTORY Diagnosis Date Asthma CKD (chronic kidney disease) stage 3, GFR 30-59 ml/min (HCC) Congestive heart failure, unspecified 2002 Cardiology Geovanna Delmis [facility] Diverticulosis of sigmoid External hemorrhoids without mention of complication Family history of malignant neoplasm of gastrointestinal tract Gastric polyps Gout Hiatal hernia History of breast cancer History of skin cancer History of uterine cancer cervical Internal hemorrhoids without mention of complication Iron deficiency anemia Kidney disease Osteopenia Restrictive cardiomyopathy (HCC) TIA (transient ischemic attack) right eye vision changes, carotid US reported as NL Unspecified essential hypertension since age 28 Previous Surgical History PAST SURGICAL HISTORY Procedure Laterality Date APPENDECTOMY CARDIAC CATH X--3 CATARACT EXT; EYEONICS IOL SYS CHOLECYSTECTOMY 1983 COLONOSCOPY FLX DX W/COLLJ SPEC WHEN PFRMD [facility] 2007 Colonoscopy COLONOSCOPY FLX DX W/COLLJ SPEC WHEN PFRMD 06/23/11 COLONOSCOPY FLX DX W/COLLJ SPEC WHEN PFRMD 06/08/16 Colonoscopy (MAC) COLONOSCOPY FLX DX W/COLLJ SPEC WHEN PFRMD 07/15/2019 DILATION AND CURETTAGE DXAND/THER NONOBSTETRIC five Dilation AND curettage DXA BONE DENSITY, AXIAL MAST RAD W/PECTORAL MUSCLES AXILLARY LYMPH NODES 1979 double OOPHORECTOMY PARTIAL/TOTAL UNI/BI 1985 Oophorectomy RECONSTRUCTION ROTATOR CUFF AVULSION CHRONIC 2004 right REPAIR RECTOCELE SEPARATE PROCEDURE 1979 SMALL BOWEL 03/2015 MESENTERIC ISCHEMIA TOTAL ABDOMINAL HYSTERECT W/WO RMVL TUBE OVARY Hysterectomy, RAFIA VAGINAL HYSTERECTOMY UTERUS 250 GM/< 1968 Hysterectomy, vaginal YAG CAPSULOTOMY OD (RIGHT EYE) Right 02/28/2020 Dr. Kaminski Family History FAMILY HISTORY Problem Relation Age of Onset Cancer Mother throat, stomach, colon age 69 ? unclear primary by description Thyroid Mother Heart Father age 57 Hypertension Father Stroke Paternal Grandfather Stroke Paternal Grandmother Diabetes Brother Coronary Artery Disease Maternal Grandfather Cancer Maternal Grandmother pancreatic Patient Allergies ALLERGIES Allergen Reactions Benadryl [Diphenhyd* Shortness of Breath short of breath Krystexxa [Peglotic* Other: See Comments Stopped due to elevated uric acid Sulfur Di (more content not included)... [facility] 06-13-2023 Evaluation + Plan note Associated Problem(s): Acute on chronic heart failure with preserved ejection fraction (HFpEF) (HCC) Patient with HFpEF. Appears to be slightly volume overloaded. See above. Continue losartan, spironolactone, Farxiga, and Demadex. She has noticed significant proved but I also will consider switching her losartan over to Entresto. [facility] 06-13-2023 Evaluation + Plan note Associated Problem(s): Hypertension, essential Controlled on medical therapy. Continue current medical regimen. [facility] 06-13-2023 Miscellaneous Notes Associated Problem(s): Acute on chronic heart failure with preserved ejection fraction (HFpEF) (HCC) Patient with HFpEF. Appears to be slightly volume overloaded. See above. Continue losartan, spironolactone, Farxiga, and Demadex. She has noticed significant proved but I also will consider switching her losartan over to Entresto. Associated Problem(s): Hypertension, essential Controlled on medical therapy. Continue current medical regimen. Associated Problem(s): Precordial pain Patient with substernal chest pressure. This occurs when she is using her leg press or pulling down weights with her arms. This may be exacerbation of her HFpEF. I am going to have her to increase her torsemide to 20 mg a day for the next 5 days. She will continue her spironolactone. She will call us on Monday and let us know what her weight is doing as well as her breathing and substernal chest pressure. If there is no change we will go back down to original dose of torsemide and check a Lexiscan stress test. If there is improvement we would use a higher dose of the torsemide but we have to be careful for renal insufficiency. documented in this encounter [facility] 06-13-2023 Evaluation + Plan note Associated Problem(s): Precordial pain Patient with substernal chest pressure. This occurs when she is using her leg press or pulling down weights with her arms. This may be exacerbation of her HFpEF. I am going to have her to increase her torsemide to 20 mg a day for the next 5 days. She will continue her spironolactone. She will call us on Monday and let us know what her weight is doing as well as her breathing and substernal chest pressure. If there is no change we will go back down to original dose of torsemide and check a Lexiscan stress test. If there is improvement we would use a higher dose of the torsemide but we have to be careful for renal insufficiency. [facility] 06-13-2023 Instructions Magda Brothers RN - 06/13/2023 12:53 PM EDT Take 2 of your 10 mg tablets of Torsemide for the next 5 days. See if that helps. Call to check in after 5 days - Monday To reach Dr. Benites's Nurse Stacker Straightener Robina or Bailee directly, please call [phone]. Please note that this voicemail is NOT checked after 4 pm during the week. It is also not check on holidays or weekends. You can also send messages via My Chart. These are also only answered during normal business hours, M-F. The main office number is [phone] should you have problems during those times and need to speak with the top ironer physician. This is also the number you can use to schedule appointments. The main fax number is [phone]. Office Address: [address] [place] [address], [address] [place] [address] Scheduling Appts or testing: Please call , Option #1 to schedule or reschedule an appointment. Please call if you are unable to keep your appointment. No show appointments are tracked and unfortunately could result in your dismissal from our practice. Prescription Refill Directions: We will refill cardiac medications as long as you are a current patient. When requesting a refill, be sure to do this ahead of time to allow us time to process there refill so that you do not run out of medication. Please send a message through your MyChart or call Candie's direct line to leave a detailed message for a refill. FOR REFILLS: Please leave your full name with spelling Date of Your call back number The medication name with spelling and with directions on how it is prescribed for you to take The pharmacy of your choice with the pharmacy address or phone number. You will not hear back from us regarding your refill request unless there is an issue. If your pharmacy does not notify you that a prescription is ready for you, please call the pharmacy in the next 1-2 days to see if they have the prescription ready for you. documented in this encounter [facility] 06-13-2023 History of Present illness Narrative Interventional Cardiology Clinic Follow-up Heart & Vascular [facility] 06/13/2023 Geovanna Benites MD [address] [place] [id number] Patient: Ruth Donato Date of : 1940 (82 y.o.) PCP: Christopher Sandoval MD Assessment & Plan Precordial pain Patient with substernal chest pressure. This occurs when she is using her leg press or pulling down weights with her arms. This may be exacerbation of her HFpEF. I am going to have her to increase her torsemide to 20 mg a day for the next 5 days. She will continue her spironolactone. She will call us on Monday and let us know what her weight is doing as well as her breathing and substernal chest pressure. If there is no change we will go back down to original dose of torsemide and check a Lexiscan stress test. If there is improvement we would use a higher dose of the torsemide but we have to be careful for renal insufficiency. Hypertension, essential Controlled on medical therapy. Continue current medical regimen. Acute on chronic heart failure with preserved ejection fraction (HFpEF) ([facility]) Patient with HFpEF. Appears to be slightly volume overloaded. See above. Continue losartan, spironolactone, Farxiga, and Demadex. She has noticed significant proved but I also will consider switching her losartan over to Entresto. Follow-up: Return in about 6 months (around 12/12/2023). Chief Complaint: Chest pain and shortness of breath. Subjective History of Present Illness: Ruth Donato is a 82 y.o. female with a history of Takotsubo cardiomyopathy (resolved), HFpEF, hypertension, renal insufficiency and history of pericardial effusion. Patient states that recently she has noticed substernal chest pressure. This occurs when she is doing a leg press or pulling weights down with her arms. She also has dyspnea on exertion that is chronic for her. She has slight worsening lower extreme edema left leg greater than the right. 05/02/23 K 4.6 Cr 1.51 - follows with neprology Mg 2.9 H/H 13.2/39.6 [id number] CAD 2009 carotid duplex-mild bilateral 06/07/[id number] 68%. No significant valvular abnormalities. Objective Imaging: I independently reviewed the EKG and agree with the interpretation(s) with the following comments. 06/13/[id number] Rhythm Low voltage in precordial leads. -Incomplete right bundle branch block and left axis -anterior fascicular block. ECG 12 Lead Final Result by Geovanna Benites MD (06/13/2023 1250) Echocardiogram complete Final Result by Virgilio Scott DO (06/07/2022 1421) Review of Systems: Review of systems performed by the medical supply technician, personally reviewed and viewable in the current patient encounter. Pertinent positive and negative findings detailed in HPI. HOME Medications: Current Outpatient Medications on File Prior to Visit Medication Sig albuterol (PROVENTIL) 2.5 mg/0.5 mL Nebu Take 0.5 mL (2.5 mg total) by nebulization . albuterol 90 mcg/actuation inhaler Inhale 2 (two) puffs as needed for wheezing . aspirin 81 MG EC tablet Take 1 (one) tablet (81 mg total) by mouth daily . clopidogreL (Plavix) 75 mg tablet Take 1 (one) tablet (75 mg total) by mouth daily . dapagliflozin (Farxiga) 10 mg tablet Take 1 (one) tablet (10 mg total) by mouth every morning . febuxostat (ULORIC) 40 mg tablet Take 1 (one) tablet (40 mg total) by mouth daily . losartan (Cozaar) 25 MG tablet Take 1 (one) tablet (25 mg total) by mouth daily . montelukast (SINGULAIR) 10 mg tablet Take 1 (one) tablet (10 mg total) by mouth nightly . nitrofurantoin, macrocrystal-monohydrate, (MACROBID) 100 MG capsule Take 1 (one) capsule (100 mg total) by mouth as needed . omeprazole (PRILOSEC) 40 MG capsule Take 1 (one) capsule (40 mg total) by mouth as needed . spironolactone (ALDACTONE) 25 MG tablet Take 1 (one) tablet (25 mg total) by mouth daily . Symbicort 160-4.5 mcg/actuation inhaler Inhale 2 (two) puffs 2 (two) times a day . torsemide (DEMADEX) 10 MG tablet Take 1 tablet on odd days and 2 tablets on even days. . No current facility-administered medications on file prior to visit. Vital Signs: BP 119/65 (BP Location: Right arm, Patient Position: Sitting) Pulse 77 Ht 5' 1 Wt 64.1 kg (141 lb 6.4 oz) BMI 26.72 kg/m Physical Exam Neck: Vascular: No carotid bruit. Cardiovascular: Rate and Rhythm: Normal rate and regular rhythm. Heart sounds: No murmur heard. Pulmonary: Effort: Pulmonary effort is normal. Breath sounds: No wheezing or rales. Musculoskeletal: Right lower leg: Edema present. Left lower leg: Edema present. Comments: Patient wearing compression stockings. 2+ left lower extremity edema 1+ right lower extremity edema. Labs: I personally reviewed and interpreted the labs documented below. 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 On aldactone. documented in this encounter [facility] 06-01-2023 Note HNO ID: [id number] Author: Kari Katz APRN.ONLINE MERCHANDISING SPECIALIST Service: ? Author Type: Nurse Practitioner Type: Progress Notes Filed: 06/01/2023 4:04 PM Note Text: This is a 82 year old female who presents today with: Patient presents with: Follow Up: cough HISTORY OF PRESENT ILLNESS: Ruth Donato is a 82 year old female. Patient presents with: Follow Up: cough Express care follow up. Was seen 05/28/2023 for cough for 2 weeks. Had increased sputum production. Has tried tessalon perles without any improvement. Chest has been hurting with coughing. Coughing up yellow mucus. Started on doxycycline for lower respiratory tract infection. No SOB or difficulty breathing. PAST MEDICAL HISTORY: PAST MEDICAL HISTORY Diagnosis Date Asthma CKD (chronic kidney disease) stage 3, GFR 30-59 ml/min (HCC) Congestive heart failure, unspecified 2002 Cardiology [facility] Diverticulosis of sigmoid External hemorrhoids without mention of complication Family history of malignant neoplasm of gastrointestinal tract Gastric polyps Gout Hiatal hernia History of breast cancer History of skin cancer History of uterine cancer cervical Internal hemorrhoids without mention of complication Iron deficiency anemia Kidney disease Osteopenia Restrictive cardiomyopathy (HCC) TIA (transient ischemic attack) right eye vision changes, carotid US reported as NL Unspecified essential hypertension since age 28 PAST SURGICAL HISTORY Procedure Laterality Date APPENDECTOMY CARDIAC CATH X--3 CATARACT EXT; EYEONICS IOL SYS CHOLECYSTECTOMY 1983 COLONOSCOPY FLX DX W/COLLJ SPEC WHEN PFRMD [facility] 2007 Colonoscopy COLONOSCOPY FLX DX W/COLLJ SPEC WHEN PFRMD 06/23/11 COLONOSCOPY FLX DX W/COLLJ SPEC WHEN PFRMD 06/08/16 Colonoscopy (MAC) COLONOSCOPY FLX DX W/COLLJ SPEC WHEN PFRMD 07/15/2019 DILATION AND CURETTAGE DXAND/THER NONOBSTETRIC five Dilation AND curettage DXA BONE DENSITY, AXIAL MAST RAD W/PECTORAL MUSCLES AXILLARY LYMPH NODES 1978 double OOPHORECTOMY PARTIAL/TOTAL UNI/BI 1985 Oophorectomy RECONSTRUCTION ROTATOR CUFF AVULSION CHRONIC 2004 right REPAIR RECTOCELE SEPARATE PROCEDURE 1979 SMALL BOWEL 03/2015 MESENTERIC ISCHEMIA TOTAL ABDOMINAL HYSTERECT W/WO RMVL TUBE OVARY Hysterectomy, RAFIA VAGINAL HYSTERECTOMY UTERUS 250 GM/< 1968 Hysterectomy, vaginal YAG CAPSULOTOMY OD (RIGHT EYE) Right 02/28/2020 Dr. Kaminski ALLERGIES Benadryl [Diphenhydramine Hcl], Krystexxa [Pegloticase], Sulfur Dioxide, Talwin [Pentazocine Lactate], Valium [Diazepam], Adhesive Tape (Rosins), Advair Diskus [Fluticasone Propion-Salmeterol], Penicillins, Sulfa (Sulfonamide Antibiotics), and No Bp Or Venipunctures Left Arm [Other] MEDICATIONS Current Outpatient Medications Medication Sig doxycycline hyclate (VIBRAMYCIN) 100 mg capsule Take 1 capsule by mouth twice daily for 10 days. calcitriol (ROCALTROL) 0.25 mcg capsule colchicine 0.6 mg tablet Take 1 tablet by mouth once daily. Take 2 tabs by mouth then take 1 tab 1 hour later. torsemide (DEMADEX) 10 mg tablet Take 1 tablet by mouth once daily. Every other day taking 2 tabs. omeprazole (PRILOSEC) 20 mg capsule Take 1 capsule by mouth daily before breakfast. 1/2 hr before meal. calcifediol 30 mcg Cs24 Take 1 capsule by mouth once daily. albuterol HFA (VENTOLIN HFA) 90 mcg/actuation inhaler Inhale 2 Puffs as instructed every 4 hours as needed for wheezing/shortness of breath. montelukast (SINGULAIR) 10 mg tablet Take 1 tablet by mouth daily at bedtime. budesonide-formoterol (SYMBICORT) 160-4.5 mcg/actuation inhaler Inhale 2 Puffs as instructed twice daily. FARXIGA 10 mg tablet albuterol (PROVENTIL) 2.5 mg /3 mL (0.083 %) nebulizer solution Use 3 mL via nebulizer every 6 hours as needed for wheezing/shortness of breath for up to 90 doses. Use over 5-15minutes. clopidogrel (PLAVIX) 75 mg tablet aspirin, enteric coated (ASPIRIN, ENTERIC COATED) 81 mg EC tablet Take 1 tablet by mouth once daily. febuxostat (ULORIC) 40 mg tab Take 1 tablet by mouth once daily. spironolactone (ALDACTONE) 25 mg tablet Take 1 tablet by mouth once daily. losartan (COZAAR) 25 mg tablet Take 1 tablet by mouth once daily. No current facility-administered medications for this visit. FAMILY HISTORY Problem Relation Age of Onset Cancer Mother throat, stomach, colon age 69 ? unclear primary by description Thyroid Mother Heart Father age 57 Hypertension Father Stroke Paternal Grandfather Stroke Paternal Grandmother Diabetes Brother Coronary Artery Disease Maternal Grandfather Cancer Maternal Grandmother pancreatic Social History Tobacco Use Smoking status: Never Smokeless tobacco: Never Vaping Use Vaping Use: Never used Substance Use Topics Alcohol use: No Drug use: No REVIEW OF SYSTEMS GENERAL: No weight loss, malaise or fevers/chills HEENT: Negative for frequent or si (more content not included)... [facility] 06-01-2023 Instructions Kari Katz APRN.ARJUN - 06/01/2023 2:47 PM EDT Continue to take doxycycline as prescribed. Continue supportive care at home. May use over the counter cold and cough medication as needed. Robitussin works well. Stay well hydrated. Continue to use inhalers as prescribed. Any worsening symptoms contact the office. Follow up as needed. documented in this encounter [facility] 06-01-2023 History of Present illness Narrative This is a 82 year old female who presents today with: Patient presents with: Follow Up: cough HISTORY OF PRESENT ILLNESS: Ruth Donato is a 82 year old female. Patient presents with: Follow Up: cough Express care follow up. Was seen 05/28/2023 for cough for 2 weeks. Had increased sputum production. Has tried tessalon perles without any improvement. Chest has been hurting with coughing. Coughing up yellow mucus. Started on doxycycline for lower respiratory tract infection. No SOB or difficulty breathing. PAST MEDICAL HISTORY: PAST MEDICAL HISTORY Diagnosis Date Asthma CKD (chronic kidney disease) stage 3, GFR 30-59 ml/min (HCC) Congestive heart failure, unspecified 2002 Cardiology [facility] Diverticulosis of sigmoid External hemorrhoids without mention of complication Family history of malignant neoplasm of gastrointestinal tract Gastric polyps Gout Hiatal hernia History of breast cancer History of skin cancer History of uterine cancer cervical Internal hemorrhoids without mention of complication Iron deficiency anemia Kidney disease Osteopenia Restrictive cardiomyopathy (HCC) TIA (transient ischemic attack) right eye vision changes, carotid US reported as NL Unspecified essential hypertension since age 28 PAST SURGICAL HISTORY Procedure Laterality Date APPENDECTOMY CARDIAC CATH X--3 CATARACT EXT; EYEONICS IOL SYS CHOLECYSTECTOMY 1983 COLONOSCOPY FLX DX W/COLLJ SPEC WHEN PFRMD [facility] 2007 Colonoscopy COLONOSCOPY FLX DX W/COLLJ SPEC WHEN PFRMD 06/23/11 COLONOSCOPY FLX DX W/COLLJ SPEC WHEN PFRMD 06/08/16 Colonoscopy (MAC) COLONOSCOPY FLX DX W/COLLJ SPEC WHEN PFRMD 07/15/2019 DILATION & CURETTAGE DX&/THER NONOBSTETRIC five Dilation & curettage DXA BONE DENSITY, AXIAL MAST RAD W/PECTORAL MUSCLES AXILLARY LYMPH NODES 1978 double OOPHORECTOMY PARTIAL/TOTAL UNI/BI 1985 Oophorectomy RECONSTRUCTION ROTATOR CUFF AVULSION CHRONIC 2003 right REPAIR RECTOCELE SEPARATE PROCEDURE 1979 SMALL BOWEL 03/2015 MESENTERIC ISCHEMIA TOTAL ABDOMINAL HYSTERECT W/WO RMVL TUBE OVARY Hysterectomy, RAFIA VAGINAL HYSTERECTOMY UTERUS 250 GM/< 1968 Hysterectomy, vaginal YAG CAPSULOTOMY OD (RIGHT EYE) Right 02/28/2020 Dr. Kaminski ALLERGIES Benadryl [Diphenhydramine Hcl], Krystexxa [Pegloticase], Sulfur Dioxide, Talwin [Pentazocine Lactate], Valium [Diazepam], Adhesive Tape (Rosins), Advair Diskus [Fluticasone Propion-Salmeterol], Penicillins, Sulfa (Sulfonamide Antibiotics), and No Bp Or Venipunctures Left Arm [Other] MEDICATIONS Current Outpatient Medications Medication Sig doxycycline hyclate (VIBRAMYCIN) 100 mg capsule Take 1 capsule by mouth twice daily for 10 days. calcitriol (ROCALTROL) 0.25 mcg capsule colchicine 0.6 mg tablet Take 1 tablet by mouth once daily. Take 2 tabs by mouth then take 1 tab 1 hour later. torsemide (DEMADEX) 10 mg tablet Take 1 tablet by mouth once daily. Every other day taking 2 tabs. omeprazole (PRILOSEC) 20 mg capsule Take 1 capsule by mouth daily before breakfast. 1/2 hr before meal. calcifediol 30 mcg Cs24 Take 1 capsule by mouth once daily. albuterol HFA (VENTOLIN HFA) 90 mcg/actuation inhaler Inhale 2 Puffs as instructed every 4 hours as needed for wheezing/shortness of breath. montelukast (SINGULAIR) 10 mg tablet Take 1 tablet by mouth daily at bedtime. budesonide-formoterol (SYMBICORT) 160-4.5 mcg/actuation inhaler Inhale 2 Puffs as instructed twice daily. FARXIGA 10 mg tablet albuterol (PROVENTIL) 2.5 mg /3 mL (0.083 %) nebulizer solution Use 3 mL via nebulizer every 6 hours as needed for wheezing/shortness of breath for up to 90 doses. Use over 5-15minutes. clopidogrel (PLAVIX) 75 mg tablet aspirin, enteric coated (ASPIRIN, ENTERIC COATED) 81 mg EC tablet Take 1 tablet by mouth once daily. febuxostat (ULORIC) 40 mg tab Take 1 tablet by mouth once daily. spironolactone (ALDACTONE) 25 mg tablet Take 1 tablet by mouth once daily. losartan (COZAAR) 25 mg tablet Take 1 tablet by mouth once daily. No current facility-administered medications for this visit. FAMILY HISTORY Problem Relation Age of Onset Cancer Mother throat, stomach, colon age 69 ? unclear primary by description Thyroid Mother Heart Father age 57 Hypertension Father Stroke Paternal Grandfather Stroke Paternal Grandmother Diabetes Brother Coronary Artery Disease Maternal Grandfather Cancer Maternal Grandmother pancreatic Social History Tobacco Use Smoking status: Never Smokeless tobacco: Never Vaping Use Vaping Use: Never used Substance Use Topics Alcohol use: No Drug use: No REVIEW OF SYSTEMS GENERAL: No weight loss, malaise or fevers/chills HEENT: Negative for frequent or significant headaches, No changes in hearing or vision. NECK: Negative for lumps, goiter, pain and significant neck swelling RESPIRATORY: + Cough CARDIOVASCULAR: Negative for chest pain, leg swelling, orthopnea, or palpitations GI: No nausea, vomiting, or diarrhea/constipation. No hematochezia/melena. No heartburn or reflux symptoms. : No history of dysuria, frequency or incontinence MUSCULOSKELETAL: Negative for joint pain or swelling. SKIN: Negative for lesions, rash, and itching ENDOCRINE: Negative for cold or heat intolerance, polyuria, polydipsia and goiter NEURO: No history of headaches, syncope, paralysis, seizures or tremors MOOD: Negative for depression, anxiety, or suicidal ideation. EXAM: BP 126/72 Pulse 73 Temp 36.9 C (98.4 F) Resp 16 Wt 64.4 kg (142 lb) SpO2 97% BMI 26.53 kg/m PHYSICAL EXAM: General Appearance: Well appearing, alert, in no acute distress, well-hydrated, well nourished. Skin: Skin color, texture, turgor normal, no suspicious rashes or lesions. Head: Normocephalic, no masses, lesions, tenderness or abnormalities. Eyes: Anicteric sclera. Extraocular movements are intact. Neck: Supple, no adenopathy; thyroid symmetric, normal size, no bruits. Lungs: Lungs clear to auscultation. No wheezing, rhonchi, rales. Cough. Heart: RRR without murmur, gallop, or rubs. No ectopy. Extremities: No deformities, edema, skin discoloration, clubbing or cyanosis. Good capillary refill. Peripheral Pulses: Normal, Capillary refill <2secs, strong peripheral pulses, Pulses palpable. Neurologic: Gait normal. Sensation grossly intact. ASSESSMENT/PLAN: 1. Lower resp. tract infection - ICD9: 519.8, ICD10: J22 (primary diagnosis) - Continue to take doxycycline as prescribed. - Continue supportive care at home, may use [id number] cold and cough medication as needed for symptoms. - Stay well-hydrated. - Instructed to follow-up in the office if symptoms do not improve. 2. Moderate persistent asthma without complication - ICD9: 493.90, ICD10: J45.40 - Mild intermittent asthma stable - Continue current medications - Avoidance of triggers recommended - Refills provided. - ALBUTEROL SULFATE 2.5 MG/3 ML (0.083 %) SOLUTION FOR NEBULIZATION - MONTELUKAST 10 MG TABLET - BUDESONIDE-FORMOTEROL HFA 160 MCG-4.5 MCG/ACTUATION AEROSOL INHALER - ALBUTEROL SULFATE HFA 90 MCG/ACTUATION AEROSOL INHALER Follow-up if no improvement. Discussed treatment plan and patient voices understanding. Patient's questions answered appropriately. Medications and potential side effects were discussed and patient voices understanding. Kari Katz APRN.CNP This note was partially generated using Fjuul voice recognition system. Note was reviewed for accuracy. There may be minor misspellings or grammar miscues with Fjuul voice recognition. documented in this encounter [facility] 05-28-2023 Note HNO ID: [id number] Author: Anny Hawkins APRN.CNP Service: ? Author Type: Nurse Practitioner Type: Progress Notes Filed: 05/28/2023 11:35 AM Note Text: Subjective Sinus Problem Associated symptoms include chest pain (with coughing) and coughing. Pertinent negatives include no chills, congestion, fever, myalgias or sore throat. Ruth Donato is a 82 year old female who presents with a cough for 2 weeks. She has noticed increased sputum production the past few days. She has not had a fever. She has been taking mucinex at home without relief. She states her chest hurts with her cough. She has had some minimal shortness of breath. No leg swelling. Review of Systems Constitutional: Negative for chills, fever and malaise/fatigue. HENT: Negative for congestion and sore throat. Respiratory: Positive for cough, sputum production and shortness of breath. Negative for hemoptysis. Cardiovascular: Positive for chest pain (with coughing). Musculoskeletal: Negative for myalgias. BP 112/64 Pulse 84 Temp 36.2 ?C (97.2 ?F) Resp 16 Wt 62.6 kg (138 lb) SpO2 95% BMI 25.79 kg/m? PAST MEDICAL HISTORY Diagnosis Date Asthma CKD (chronic kidney disease) stage 3, GFR 30-59 ml/min (HCC) Congestive heart failure, unspecified 2002 Cardiology [facility] Diverticulosis of sigmoid External hemorrhoids without mention of complication Family history of malignant neoplasm of gastrointestinal tract Gastric polyps Gout Hiatal hernia History of breast cancer History of skin cancer History of uterine cancer cervical Internal hemorrhoids without mention of complication Iron deficiency anemia Kidney disease Osteopenia Restrictive cardiomyopathy (HCC) TIA (transient ischemic attack) right eye vision changes, carotid US reported as NL Unspecified essential hypertension since age 28 PAST SURGICAL HISTORY Procedure Laterality Date APPENDECTOMY CARDIAC CATH X--3 CATARACT EXT; EYEONICS IOL SYS CHOLECYSTECTOMY 1983 COLONOSCOPY FLX DX W/COLLJ SPEC WHEN PFRMD [facility] 2007 Colonoscopy COLONOSCOPY FLX DX W/COLLJ SPEC WHEN PFRMD 06/23/11 COLONOSCOPY FLX DX W/COLLJ SPEC WHEN PFRMD 06/08/16 Colonoscopy (MAC) COLONOSCOPY FLX DX W/COLLJ SPEC WHEN PFRMD 07/15/2019 DILATION AND CURETTAGE DXAND/THER NONOBSTETRIC five Dilation AND curettage DXA BONE DENSITY, AXIAL MAST RAD W/PECTORAL MUSCLES AXILLARY LYMPH NODES 1978 double OOPHORECTOMY PARTIAL/TOTAL UNI/BI 1985 Oophorectomy RECONSTRUCTION ROTATOR CUFF AVULSION CHRONIC 2003 right REPAIR RECTOCELE SEPARATE PROCEDURE 1979 SMALL BOWEL 03/2015 MESENTERIC ISCHEMIA TOTAL ABDOMINAL HYSTERECT W/WO RMVL TUBE OVARY Hysterectomy, RAFIA VAGINAL HYSTERECTOMY UTERUS 250 GM/< 1968 Hysterectomy, vaginal YAG CAPSULOTOMY OD (RIGHT EYE) Right 02/28/2020 Dr. Kaminski ALLERGIES Benadryl [Diphenhydramine Hcl], Krystexxa [Pegloticase], Sulfur Dioxide, Talwin [Pentazocine Lactate], Valium [Diazepam], Adhesive Tape (Rosins), Advair Diskus [Fluticasone Propion-Salmeterol], Penicillins, Sulfa (Sulfonamide Antibiotics), and No Bp Or Venipunctures Left Arm [Other] MEDICATIONS calcitriol (ROCALTROL) 0.25 mcg capsule colchicine 0.6 mg tablet Take 1 tablet by mouth once daily. Take 2 tabs by mouth then take 1 tab 1 hour later. torsemide (DEMADEX) 10 mg tablet Take 1 tablet by mouth once daily. Every other day taking 2 tabs. omeprazole (PRILOSEC) 20 mg capsule Take 1 capsule by mouth daily before breakfast. 1/2 hr before meal. calcifediol 30 mcg Cs24 Take 1 capsule by mouth once daily. albuterol HFA (VENTOLIN HFA) 90 mcg/actuation inhaler Inhale 2 Puffs as instructed every 4 hours as needed for wheezing/shortness of breath. montelukast (SINGULAIR) 10 mg tablet Take 1 tablet by mouth daily at bedtime. budesonide-formoterol (SYMBICORT) 160-4.5 mcg/actuation inhaler Inhale 2 Puffs as instructed twice daily. FARXIGA 10 mg tablet albuterol (PROVENTIL) 2.5 mg /3 mL (0.083 %) nebulizer solution Use 3 mL via nebulizer every 6 hours as needed for wheezing/shortness of breath for up to 90 doses. Use over 5-15minutes. clopidogrel (PLAVIX) 75 mg tablet aspirin, enteric coated (ASPIRIN, ENTERIC COATED) 81 mg EC tablet Take 1 tablet by mouth once daily. febuxostat (ULORIC) 40 mg tab Take 1 tablet by mouth once daily. spironolactone (ALDACTONE) 25 mg tablet Take 1 tablet by mouth once daily. losartan (COZAAR) 25 mg tablet Take 1 tablet by mouth once daily. doxycycline hyclate (VIBRAMYCIN) 100 mg capsule Take 1 capsule by mouth twice daily for 10 days. FAMILY HISTORY Problem Relation Age of Onset Cancer Mother throat, stomach, colon age 69 ? unclear primary by description Thyroid Mother Heart Father age 57 Hypertension Father Stroke Paternal Grandfather Stroke Paternal Grandmother Diabetes Brother Coronary Artery Disease Maternal Grandfather Cancer Maternal Grandm (more content not included)... [facility] 05-18-2023 Note HNO ID: [id number] Author: Jan Santana II, OD Service: ? Author Type: FINISH OPENER Type: Progress Notes Filed: 05/18/2023 10:54 AM Note Text: Assessment and Plan H52.223 Regular astigmatism, bilateral (primary encounter diagnosis) H52.03 Hyperopia, bilateral Comment: Small shift in glasses power. Update as desired. Recheck in 1 year. H43.393 Vitreous floaters of both eyes Comment: Vitreal floaters stable both eyes. Retinas flat and intact with no apparent retinal tear or traction. Monitor yearly. Z96.1 Pseudophakia of both eyes Comment: Posterior chamber intraocular lenses are well positioned and clear. I have confirmed and edited as necessary the relevant ophthalmic history, ROS, and the neuro exam findings as obtained by others. I have seen and examined Ruth Donato. I have discussed the case and the management of this patient's care with the Resident/Fellow, if applicable. I also have reviewed and agree with the assessment and plan as stated above and agree with all of its relevant components. Jan Santana II, OD [facility] 05-18-2023 Instructions Jan Santana II, OD - 05/18/2023 10:54 AM EDT Assessment and Plan H52.223 Regular astigmatism, bilateral (primary encounter diagnosis) H52.03 Hyperopia, bilateral Comment: Small shift in glasses power. Update as desired. Recheck in 1 year. H43.393 Vitreous floaters of both eyes Comment: Vitreal floaters stable both eyes. Retinas flat and intact with no apparent retinal tear or traction. Monitor yearly. Z96.1 Pseudophakia of both eyes Comment: Posterior chamber intraocular lenses are well positioned and clear. I have confirmed and edited as necessary the relevant ophthalmic history, ROS, and the neuro exam findings as obtained by others. I have seen and examined Ruth Donato. I have discussed the case and the management of this patient's care with the Resident/Fellow, if applicable. I also have reviewed and agree with the assessment and plan as stated above and agree with all of its relevant components. Jan Santana II, OD documented in this encounter [facility] 05-18-2023 History of Present illness Narrative Assessment and Plan H52.223 Regular astigmatism, bilateral (primary encounter diagnosis) H52.03 Hyperopia, bilateral Comment: Small shift in glasses power. Update as desired. Recheck in 1 year. H43.393 Vitreous floaters of both eyes Comment: Vitreal floaters stable both eyes. Retinas flat and intact with no apparent retinal tear or traction. Monitor yearly. Z96.1 Pseudophakia of both eyes Comment: Posterior chamber intraocular lenses are well positioned and clear. I have confirmed and edited as necessary the relevant ophthalmic history, ROS, and the neuro exam findings as obtained by others. I have seen and examined Ruth Donato. I have discussed the case and the management of this patient's care with the Resident/Fellow, if applicable. I also have reviewed and agree with the assessment and plan as stated above and agree with all of its relevant components. Jan Santana II, OD documented in this encounter [facility] 05-10-2023 History of Present illness Narrative DAILY PROGRESS NOTE Admit Date: (Not on file) Date of Evaluation: 0:04 AM [facility] IMPRESSION AND PLAN: 80 y/o female with history of CVA, CHF, GERD, asthma, gout and CKD III is here for CKD care. 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 Continue with torsemide 10mg PO Qday. Continue with farxiga. Will get renal panel. 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 Uric acid 11.2 -> 4.6 She is on uloric 3) Chronic normocytic anemia: H and H 11.8 -> 12.3 -> 12.6 -> 11.5 -> 12.8 -> 13.2 and 35.1 -> 37.7 -> 37.6 -> 34.7 -> 39.2 -> 39.6 Last colonoscopy 2018 Will get CBC. 4) Hyperparathyroid PTH 133.7 -> 82.1 Vitamin D 29.5 -> 35.6 Continue with calcitriol. 5) Transaminitis ALT 20 / AST 69 Will repeat LFT SUBJECTIVE: Patient seen and examined. Chart, medications, labs reviewed. Appointment on 05/02/2023 Component Date Value Ref Range Status Glucose 05/02/2023 115 (H) 70 - 100 MG/DL Final Comment: NORMAL <100 mg/dL PREDIABETES 101-126 mg/dL DIABETES 126 mg/dL or higher BUN 05/02/2023 59 (H) 7 - 20 MG/DL Final CREATININE SERUM 05/02/2023 1.51 (H) 0.70 - 1.20 MG/DL Final SODIUM 05/02/2023 136 (L) 137 - 145 MMOL/L Final POTASSIUM 05/02/2023 4.6 3.5 - 5.1 MMOL/L Final CHLORIDE 05/02/2023 99 98 - 107 MMOL/L Final Please note: Triglyceride levels of 600mg/dL or higher may positively bias chloride results by approximately 2.1 mmol CARBON DIOXIDE (CO2) 05/02/2023 26 22 - 30 MMOL/L Final Albumin 05/02/2023 4.4 3.5 - 5.0 G/dl Final CALCIUM 05/02/2023 9.0 8.4 - 10.2 MG/DL Final PHOSPHORUS 05/02/2023 4.1 2.5 - 4.5 MG/DL Final ESTIMATED GFR, NON AMER 05/02/2023 35 ml/min/1.73sq.m Final ESTIMATED GFR, 05/02/2023 42 ml/min/1.73sq.m Final GFR COMMENT 05/02/2023 Average GFR for 70+ years old = 75. Final Comment: Chronic Kidney disease, GFR = <60. Kidney failure, GFR = <15. The GFR estimate is not adjusted for extreme body surface area or acute process, nor has it been validated for women or ethnic groups other than and . MAGNESIUM 05/02/2023 2.9 (H) 1.6 - 2.3 MG/DL Final WBC (WHITE BLOOD COUNT) 05/02/2023 6.1 3.6 - 11.0 10*3/uL Final RBC 05/02/2023 4.33 4.0 - 5.4 10*6/uL Final HEMOGLOBIN (HGB) 05/02/2023 13.2 12.0 - 16.0 G/DL Final HEMATOCRIT (HCT) 05/02/2023 39.6 36.0 - 48.0 % Final MEAN CELL VOLUME 05/02/2023 91.5 80.0 - 100.0 FL Final Mean Cell HGB 05/02/2023 30.5 26.0 - 35.0 PG Final MEAN CELL HGB CONCENTRATION 05/02/2023 33.4 27.0 - 37.0 G/DL Final RBC DISTRIBUTION 05/02/2023 14.2 11.5 - 14.5 % Final PLATELET COUNT 05/02/2023 248 130 - 400 10*3/uL Final MEAN PLATELET VOLUME 05/02/2023 6.8 (L) 7.4 - 11.0 FL Final DIFFERENTIAL TYPE 05/02/2023 AUTO DIFF % Final NEUTROPHILS 05/02/2023 75.5 (H) 37.0 - 75.0 % Final LYMPHOCYTE 05/02/2023 14.5 (L) 20.0 - 55.0 % Final MONOCYTE % 05/02/2023 7.8 0.0 - 10.0 % Final EOSINOPHIL % 05/02/2023 1.7 0.0 - 11.0 % Final BASOPHIL % 05/02/2023 0.5 0.0 - 2.0 % Final Absolute Neutrophil Count 05/02/2023 4.6 1.4 - 6.5 10*3/uL Final LYMPHOCYTES, ABSOLUTE 05/02/2023 0.9 (L) 1.2 - 3.4 10*3/uL Final MONOCYTES, ABSOLUTE 05/02/2023 0.5 0.0 - 0.7 10*3/uL Final ABSOLUTE EOSINOPHIL COUNT 05/02/2023 0.1 0.0 - 0.7 10*3/uL Final ABSOLUTE BASOPHIL COUNT 05/02/2023 0.0 0.0 - 0.2 10*3/uL Final PROTEIN MG/DL-URINE 05/02/2023 11 0 - 12 MG/DL Final CREATININE, MG/DL, URINE 05/02/2023 46.3 MG/DL Final NO NORMAL VALUES ESTABLISHED FOR RANDOM SPECIMENS PROTEIN/CREAT RATIO, URINE 05/02/2023 0.2 Final Comment: REFERENCE RANGES <0.2 NORMAL 0.2-3.5 NON-NEPHROTIC >3.5 NEPHROTIC COLOR, URINE 05/02/2023 YELLOW YELLOW Final APPEARANCE, URINE 05/02/2023 SLIGHTLY CLOUDY (A) CLEAR Final Specific [place], Urine 05/02/2023 1.010 1.010 - 1.025 Final PH URINE 05/02/2023 5.5 5.0 - 7.0 Final Urine Protein 05/02/2023 NEGATIVE NEGATIVE mg/dl Final GLUCOSE, URINE 05/02/2023 250 (A) NEGATIVE mg/dl Final KETONES, URINE 05/02/2023 NEGATIVE NEGATIVE mg/dl Final BILIRUBIN, URINE 05/02/2023 NEGATIVE NEGATIVE Final BLOOD, URINE DIPSTICK 05/02/2023 NEGATIVE NEGATIVE Final NITRITES, URINE 05/02/2023 NEGATIVE NEGATIVE Final UROBILINOGEN, URINE 05/02/2023 0.2 0.2 - 1.0 E.U./dL Final LEUKOCYTE ESTERASE, URINE 05/02/2023 TRACE (A) NEGATIVE Final SODIUM, URINE RANDOM 05/02/2023 17 (L) 30 - 90 MMOL/L Final WBC, URINE 05/02/2023 1 TO 5 NEGATIVE /HPF Final RBC, URINE 05/02/2023 NEGATIVE NEGATIVE /HPF Final Epithelial Cells UA 05/02/2023 1 TO 5 /HPF Final Mucus 05/02/2023 NEGATIVE NEGATIVE Final BACTERIA, URINE 05/02/2023 NEGATIVE NEGATIVE Final CRYSTALS, URINE 05/02/2023 NONE NONE Final CASTS, URINE 05/02/2023 NONE NONE /LPF Final COMMENT, URINE 05/02/2023 CULTURE CRITERIA NOT MET, NO CULTURE PERFORMED. Final LABS Labs-ABGs @ABGROUNDS@ Labs-CBC @CBCBRIEFROUNDS@ Labs-Chem 7([facility]) @[facility]@ Labs-Coags WBC (WHITE BLOOD COUNT) Date Value Ref Range Status 05/02/2023 6.1 3.6 - 11.0 10*3/uL Final 02/28/2023 6.2 3.6 - 11.0 10*3/uL Final 12/26/2022 6.3 3.6 - 11.0 10*3/uL Final HEMOGLOBIN (HGB) Date Value Ref Range Status 05/02/2023 13.2 12.0 - 16.0 G/DL Final 02/28/2023 12.1 12.0 - 16.0 G/DL Final 12/26/2022 12.6 12.0 - 16.0 G/DL Final HEMATOCRIT (HCT) Date Value Ref Range Status 05/02/2023 39.6 36.0 - 48.0 % Final 02/28/2023 36.0 36.0 - 48.0 % Final 12/26/2022 38.0 36.0 - 48.0 % Final PLATELET COUNT Date Value Ref Range Status 05/02/2023 248 130 - 400 10*3/uL Final 02/28/2023 353 130 - 400 10*3/uL Final 12/26/2022 256 130 - 400 10*3/uL Final SODIUM Date Value Ref Range Status 05/02/2023 136 (L) 137 - 145 MMOL/L Final 02/28/2023 136 (L) 137 - 145 MMOL/L Final 12/26/2022 138 136 - 145 MMOL/L Final CHLORIDE Date Value Ref Range Status 05/02/2023 99 98 - 107 MMOL/L Final Comment: Please note: Triglyceride levels of 600mg/dL or higher may positively bias chloride results by approximately 2.1 mmol 02/28/2023 99 98 - 107 MMOL/L Final Comment: Please note: Triglyceride levels of 600mg/dL or higher may positively bias chloride results by approximately 2.1 mmol 12/26/2022 100 98 - 107 MMOL/L Final BUN Date Value Ref Range Status 05/02/2023 59 (H) 7 - 20 MG/DL Final 02/28/2023 55 (H) 7 - 20 MG/DL Final 12/26/2022 43 (H) 7 - 20 MG/DL Final POTASSIUM Date Value Ref Range Status 05/02/2023 4.6 3.5 - 5.1 MMOL/L Final 02/28/2023 4.7 3.5 - 5.1 MMOL/L Final 12/26/2022 4.2 3.5 - 5.1 MMOL/L Final CREATININE SERUM Date Value Ref Range Status 05/02/2023 1.51 (H) 0.70 - 1.20 MG/DL Final 02/28/2023 1.70 (H) 0.7 - 1.2 MG/DL Final 12/26/2022 1.47 (H) 0.52 - 1.04 MG/DL Final Glucose Date Value Ref Range Status 05/02/2023 115 (H) 70 - 100 MG/DL Final Comment: NORMAL <100 mg/dL PREDIABETES 101-126 mg/dL DIABETES 126 mg/dL or higher 02/28/2023 104 (H) 70 - 100 MG/DL Final Comment: NORMAL <100 mg/dL PREDIABETES 101-126 mg/dL DIABETES 126 mg/dL or higher 12/26/2022 110 (H) 70 - 100 MG/DL Final Comment: NORMAL <100 mg/dL PREDIABETES 101-126 mg/dL DIABETES 126 mg/dL or higher PROTEIN, TOTAL Date Value Ref Range Status 02/28/2023 7.5 6.3 - 8.2 GM/DL Final 08/22/2022 7.0 6.3 - 8.2 GM/DL Final 01/25/2022 6.2 Final Comment: Reference range: 6.0 to 8.5 Unit: g/dL 01/25/2022 6.8 6.3 - 8.2 GM/DL Final Albumin Date Value Ref Range Status 05/02/2023 4.4 3.5 - 5.0 G/dl Final 02/28/2023 4.4 3.5 - 5.0 G/dl Final 12/26/2022 4.2 3.5 - 5.0 G/dl Final AST Date Value Ref Range Status 02/28/2023 69 (H) 14 - 36 IU/L Final 08/22/2022 20 15 - 41 IU/L Final 01/25/2022 28 15 - 41 IU/L Final ALT Date Value Ref Range Status 02/28/2023 20 <35 IU/L Final 08/22/2022 15 14 - 54 IU/L Final 01/25/2022 31 14 - 54 IU/L Final BILIRUBIN, TOTAL Date Value Ref Range Status 02/28/2023 0.9 0.2 - 1.3 MG/DL Final CALCIUM Date Value Ref Range Status 05/02/2023 9.0 8.4 - 10.2 MG/DL Final 02/28/2023 9.6 8.4 - 10.2 MG/DL Final 12/26/2022 9.7 8.4 - 10.2 MG/DL Final PHOSPHORUS Date Value Ref Range Status 05/02/2023 4.1 2.5 - 4.5 MG/DL Final 12/26/2022 4.3 2.5 - 4.5 MG/DL Final 04/28/2022 3.9 2.5 - 4.5 MG/DL Final MAGNESIUM Date Value Ref Range Status 05/02/2023 2.9 (H) 1.6 - 2.3 MG/DL Final 12/26/2022 2.6 (H) 1.6 - 2.3 MG/DL Final 08/22/2022 2.6 (H) 1.6 - 2.3 MG/DL Final Lab Results Component Value Date CREATURINE 46.3 05/02/2023 CREATSERUM 1.51 (H) 05/02/2023 BUN 59 (H) 05/02/2023 SODIUM 136 (L) 05/02/2023 POTASSIUM 4.6 05/02/2023 CHLORIDE 99 05/02/2023 CO2 26 05/02/2023 ROS: Constitution: No fever, no chill HEENT: No headache, no sinus issues CV: No chest pain, no palpitation Lung: No cough, No SOB Abd: No diarrhea, no constipation Neuro: No seizure, no loss of consciousness Heme: No bleeding, no bruise PHYSICAL EXAM: Wt Readings from Last 3 Encounters: 05/10/23 63.8 kg (140 lb 9.6 oz) 03/08/23 63.9 kg (140 lb 12.8 oz) 01/04/23 65.8 kg (145 lb) Temp Readings from Last 3 Encounters: 03/08/23 97.8 F (36.6 C) (Temporal) 09/14/22 97.3 F (36.3 C) 06/14/21 98 F (36.7 C) (Temporal) BP Readings from Last 3 Encounters: 05/10/23 110/61 03/08/23 122/60 01/04/23 130/60 Pulse Readings from Last 3 Encounters: 05/10/23 56 01/04/23 71 09/14/22 69 Gen: NAD, lying in bed, conversant HEENT: Atraumatic, PERRLA, moist membrane CV: RRR, nl S1 and S2, no m/g/r Lung: CTAB, no wheezing, no crackle Abd: +BS, nontender, no distended Ext: No rash, no clubbing, no cyanosis. No edema. Neuro: CNII-XII grossly intact, 5/5 strength, normal tone Skin: Warm and dry documented in this encounter [facility] 03-27-2023 Telephone encounter Note [facility] requesting refill. Last OV 05/[address] Benites to fill. Per request will send to [facility] 03-27-2023 Miscellaneous Notes [facility] requesting refill. Last OV 05/[address] Benites to fill. Per request will send to [facility] documented in this encounter [facility] 03-23-2023 Note HNO ID: [id number] Author: Martha Smith LPN Service: ? Author Type: ? Type: Progress Notes Filed: 03/23/2023 2:02 PM Note Text: Patient presents for COVID vaccine. Denies any problems at this time. Tolerated injection well. Martha Smith LPN [facility] 03-23-2023 History of Present illness Narrative Patient presents for COVID vaccine. Denies any problems at this time. Tolerated injection well. Martha Smith LPN documented in this encounter [facility] 03-08-2023 History of Present illness Narrative Images from the original note were not included. History of Present Illness Krystexxa started 04/05/2021. Krystexxa had been helping and not bothering the patient. Krystexxa stopped due to elevated uric acid on Krystexxa. Presence of Pain: denies pain/discomfort. Total time spent in this encounter was 24 minutes. All questions answered for the patient and . Joint pain is no not really. The top of her back hurts a lot but that's all. Patient is here for 6 month F/U. Patient states she has been feeling well. Has large wound on right lower leg causing drowsiness. No prednisone since last seen. Review of Systems Constitutional: Positive for fatigue. HENT: Negative. Eyes: Negative. Respiratory: Negative. Cardiovascular: Negative. Gastrointestinal: Negative. Endocrine: Negative. Genitourinary: Negative. Musculoskeletal: Positive for back pain. Skin: Tophi both hands - much better. Wound RLE Allergic/Immunologic: Negative. Neurological: Negative. Hematological: Negative. Psychiatric/Behavioral: Negative. Vitals: Blood pressure 122/60, temperature 97.8 F (36.6 C), temperature source Temporal, height 1.588 m (5' 2.5 ), weight 63.9 kg (140 lb 12.8 oz). Physical Exam Vitals and nursing note reviewed. Constitutional: Appearance: Normal appearance. HENT: Head: Normocephalic and atraumatic. Right Ear: External ear normal. Left Ear: External ear normal. Nose: Nose normal. Mouth/Throat: Mouth: Mucous membranes are moist. Pharynx: Oropharynx is clear. Comments: Eyes: Extraocular Movements: Extraocular movements intact. Conjunctiva/sclera: Conjunctivae normal. Pupils: Pupils are equal, round, and reactive to light. Comments: Glasses Cardiovascular: Rate and Rhythm: Normal rate and regular rhythm. Pulses: Radial pulses are 2+ on the right side and 2+ on the left side. Heart sounds: Normal heart sounds. Comments: Stockings B/L Pulmonary: Effort: Pulmonary effort is normal. Breath sounds: Normal breath sounds. Abdominal: General: Bowel sounds are normal. Palpations: Abdomen is soft. Musculoskeletal: Right shoulder: Decreased range of motion. Left shoulder: Decreased range of motion. Right upper arm: Normal. Left upper arm: Normal. Right elbow: Normal. Left elbow: Normal. Right forearm: Normal. Left forearm: Normal. Right wrist: Deformity present. Left wrist: Deformity present. Right hand: Deformity present. Decreased range of motion. Decreased strength. Left hand: Deformity present. Decreased range of motion. Decreased strength. Arms: Cervical back: Neck supple. Thoracic back: Deformity present. Decreased range of motion. Right upper leg: Normal. Left upper leg: Normal. Right knee: Crepitus present. Decreased range of motion. Left knee: Crepitus present. Decreased range of motion. Right lower le+ Edema present. Left lower le+ Edema present. Right ankle: Decreased range of motion. Left ankle: Decreased range of motion. Legs: Comments: Kyphosis T-spine. B/L LE stockings. Skin: General: Skin is warm and dry. Findings: Bruising present. Comments: Tophi hands R thumb and R index - resolved Thin skin Ecchymosis both hands Neurological: Mental Status: She is alert and oriented to person, place, and time. Cranial Nerves: Cranial nerves 2-12 are intact. Sensory: Sensation is intact. Motor: Weakness present. Gait: Gait abnormal. 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 Cane Neurological Exam Mental Status Alert. Oriented to person, place, and time. Cranial Nerves CN II: Vision test: Glasses . CN III, IV, : Extraocular movements intact bilaterally. Pupils equal round and reactive to light bilaterally. Sensory Normal sensation. Gait Abnormal gait. 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 Cane. Assessment and Plan Encounter Diagnoses Name Primary? 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 Time was spent with the patient today in education in re: to all their medical conditions. A complete H&P&ROS was obtained and is either in this note or in the EHR. Please do not hesitate to contact me with any questions or concerns re: this patient. Past History Past medical, surgical, family, and social histories have been reviewed and updated with the patient today and are located elsewhere in the medical record. 2. Thank you for allowing me to participate in the care of your patient. With your permission I would like to F/U with your patient. 3. G6PD level was normal at 271 4. Krystexxa stopped due to elevated uric acid times 2 5. Patient is on chronic ATB therapy PRN for UTI caused by intercourse 6. Patient given educational material on gout in the form of a pamphlet from the arthritis foundation. Patient should remain on Uloric life long. Would monitor CBC, LFT, Renal func, uric acid level every 6 - 12 months as long as patient on Uloric. Patient can take prednisone 5 mg 8 po q AM times one day decrease by one pill q day until off on a PRN basis any acute attack of gout. 7. uloric caused HTN - but patient is going to try again as that is not a typical side effect and now patient is tolerating Uloric 8. Allopurinol affected her kidneys and was stopped 9. Glucose was elevated at 116 and still is at 104 10. Nephro F/U per Dr. Mchugh 11. Rx given for colchicine 0.6 1 pill a day can decrease to 1 pill every other day if diarrhea - patient declines 12. Patient on her own stopped Prednisone due to stomach upset and then stopped it again due to HTN. 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 Sodium was low at 134 and still is at 136 15. Uric acid was normal at 3.2 and still is at 3.2 16. 90 day supply on medications 17. Patient told can take tylenol 18. Chloride was low at 97 and is now normal at 99 19. Cardiology F/U per Dr. Geovanna Benites 20. Bili was elevated at 1.3 and is now normal at 0.9 21. UA showed no protein and 500 mg/dl of glucose and trace lysed blood with nor infection and 0 RBC/HPF. 22. Magnesium was elevated at 2.6 23. Intact PTH was elevated at 133.7 24. AST is elevated at 69 and patient is going to F/u with PCP 25. Vit D under care of Dr. Mchugh 26. CO2 is elevated at 31 27. Rx given for Uloric 40 mg 1 pill a day 28. Lab on or about 07/25/2023 29. At patient's request will F/U with me in 5 months documented in this encounter [facility] 01-10-2023 Note HNO ID: [id number] Author: TERELL Baker Service: ? Author Type: Respiratory Therapist Type: Progress Notes Filed: 01/10/2023 11:43 AM Note Text: PULM FUNCTION SMARTBLOCK: Provider: Christopher Sandoval MD Assisting Tech: TREELL Baker Spirometry w/BD: 1 [facility] 01-04-2023 History of Present illness Narrative DAILY PROGRESS NOTE Admit Date: (Not on file) Date of Evaluation: 32:34 PM [facility] @[facility]@ IMPRESSION AND PLAN: 80 y/o female with history of CVA, CHF, GERD, asthma, gout and CKD III is here for CKD care. 1) CKD IIIB: Likely secondary to CVA and CAD Cr 1.46 -> 1.44 -> 1.11 -> 1.10 -> 1.39 -> 1.47 UA disclosed small blood. Renal US disclosed cortical lobulation and scarring of the mildly atrophic kidneys without hydronephrosis on either side. Continue with torsemide 10mg PO Qday. Continue with farxiga. Will get renal panel. 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 Uric acid 11.2 -> 4.6 She is on uloric 3) Chronic normocytic anemia: H and H 11.8 -> 12.3 -> 12.6 -> 11.5 -> 12.8 and 35.1 -> 37.7 -> 37.6 -> 34.7 -> 39.2 Last colonoscopy 2019 Will get CBC. 4) Hyperparathyroid PTH 133.7 -> 82.1 Vitamin D 29.5 -> 35.6 Continue with calcitriol. SUBJECTIVE: Patient seen and examined. Chart, medications, labs reviewed. Appointment on 12/26/2022 Component Date Value Ref Range Status VITAMIN D 25 HYDROXY 12/26/2022 35.6 >30 NG/ML Final Comment: DEFICIENT <20 NG/ML INSUFFICIENT 20-<30 NG/ML SUFFICIENT 30-100 NG/ML POTENTIAL TOXICITY >100 NG/ML PTH INTACT 12/26/2022 82.1 12 - 88 pg/mL Final Glucose 12/26/2022 110 (H) 70 - 100 MG/DL Final Comment: NORMAL <100 mg/dL PREDIABETES 101-126 mg/dL DIABETES 126 mg/dL or higher BUN 12/26/2022 43 (H) 7 - 20 MG/DL Final CREATININE SERUM 12/26/2022 1.47 (H) 0.52 - 1.04 MG/DL Final SODIUM 12/26/2022 138 136 - 145 MMOL/L Final POTASSIUM 12/26/2022 4.2 3.5 - 5.1 MMOL/L Final CHLORIDE 12/26/2022 100 98 - 107 MMOL/L Final CARBON DIOXIDE (CO2) 12/26/2022 27 22 - 30 MMOL/L Final Albumin 12/26/2022 4.2 3.5 - 5.0 G/dl Final CALCIUM 12/26/2022 9.7 8.4 - 10.2 MG/DL Final PHOSPHORUS 12/26/2022 4.3 2.5 - 4.5 MG/DL Final ESTIMATED GFR, NON AMER 12/26/2022 36 ml/min/1.73sq.m Final ESTIMATED GFR, 12/26/2022 44 ml/min/1.73sq.m Final GFR COMMENT 12/26/2022 Average GFR for 70+ years old = 75. Final Comment: Chronic Kidney disease, GFR = <60. Kidney failure, GFR = <15. The GFR estimate is not adjusted for extreme body surface area or acute process, nor has it been validated for women or ethnic groups other than and . MAGNESIUM 12/26/2022 2.6 (H) 1.6 - 2.3 MG/DL Final WBC (WHITE BLOOD COUNT) 12/26/2022 6.3 3.6 - 11.0 10*3/uL Final RBC 12/26/2022 4.13 4.0 - 5.4 10*6/uL Final HEMOGLOBIN (HGB) 12/26/2022 12.6 12.0 - 16.0 G/DL Final HEMATOCRIT (HCT) 12/26/2022 38.0 36.0 - 48.0 % Final MEAN CELL VOLUME 12/26/2022 92.0 80.0 - 100.0 FL Final Mean Cell HGB 12/26/2022 30.4 26.0 - 35.0 PG Final MEAN CELL HGB CONCENTRATION 12/26/2022 33.1 27.0 - 37.0 G/DL Final RBC DISTRIBUTION 12/26/2022 14.4 11.5 - 14.5 % Final PLATELET COUNT 12/26/2022 256 130 - 400 10*3/uL Final MEAN PLATELET VOLUME 12/26/2022 6.8 (L) 7.4 - 11.0 FL Final DIFFERENTIAL TYPE 12/26/2022 AUTO DIFF % Final NEUTROPHILS 12/26/2022 73.8 37.0 - 75.0 % Final LYMPHOCYTE 12/26/2022 16.3 (L) 20.0 - 55.0 % Final MONOCYTE % 12/26/2022 8.2 0.0 - 10.0 % Final EOSINOPHIL % 12/26/2022 0.9 0.0 - 11.0 % Final BASOPHIL % 12/26/2022 0.8 0.0 - 2.0 % Final Absolute Neutrophil Count 12/26/2022 4.7 1.4 - 6.5 10*3/uL Final LYMPHOCYTES, ABSOLUTE 12/26/2022 1.0 (L) 1.2 - 3.4 10*3/uL Final MONOCYTES, ABSOLUTE 12/26/2022 0.5 0.0 - 0.7 10*3/uL Final ABSOLUTE EOSINOPHIL COUNT 12/26/2022 0.1 0.0 - 0.7 10*3/uL Final ABSOLUTE BASOPHIL COUNT 12/26/2022 0.0 0.0 - 0.2 10*3/uL Final PROTEIN MG/DL-URINE 12/26/2022 10 (H) <10 MG/DL Final CREATININE, MG/DL, URINE 12/26/2022 69.7 MG/DL Final NO NORMAL VALUES ESTABLISHED FOR RANDOM SPECIMENS PROTEIN/CREAT RATIO, URINE 12/26/2022 0.1 Final Comment: REFERENCE RANGES <0.2 NORMAL 0.2-3.5 NON-NEPHROTIC >3.5 NEPHROTIC COLOR, URINE 12/26/2022 LIGHT YELLOW (A) YELLOW Final APPEARANCE, URINE 12/26/2022 CLEAR CLEAR Final Specific [place], Urine 12/26/2022 1.015 1.010 - 1.025 Final PH URINE 12/26/2022 6.0 5.0 - 7.0 Final PROTEIN, URINE 12/26/2022 NEGATIVE NEGATIVE mg/dl Final GLUCOSE, URINE 12/26/2022 500 (A) NEGATIVE mg/dl Final KETONES, URINE 12/26/2022 NEGATIVE NEGATIVE mg/dl Final BILIRUBIN, URINE 12/26/2022 NEGATIVE NEGATIVE Final BLOOD, URINE DIPSTICK 12/26/2022 TRACE-LYSED (A) NEGATIVE Final NITRITES, URINE 12/26/2022 NEGATIVE NEGATIVE Final UROBILINOGEN, URINE 12/26/2022 0.2 0.2 - 1.0 E.U./dL Final LEUKOCYTE ESTERASE, URINE 12/26/2022 MODERATE (A) NEGATIVE Final SODIUM, URINE RANDOM 12/26/2022 20 MMOL/L Final WBC, URINE 12/26/2022 1 TO 5 NEGATIVE /HPF Final RBC, URINE 12/26/2022 NEGATIVE NEGATIVE /HPF Final Epithelial Cells UA 12/26/2022 10 TO 20 /HPF Final Mucus 12/26/2022 NEGATIVE NEGATIVE Final BACTERIA, URINE 12/26/2022 TRACE (A) NEGATIVE Final CRYSTALS, URINE 12/26/2022 NONE NONE Final CASTS, URINE 12/26/2022 NONE NONE /LPF Final COMMENT, URINE 12/26/2022 POSSIBLY CONTAMINATED SPECIMEN, CULTURE MUST BE ORDERED SEPARATELY IF DEEMED NECESSARY. Final POSSIBLY CONTAMINATED SPECIMEN, CULTURE MUST BE ORDERED SEPARATELY IF DEEMED NECESSARY. LABS Labs-ABGs @ABGROUNDS@ Labs-CBC @CBCBRIEFROUNDS@ Labs-Chem 7([facility]) @[facility]@ Labs-Coa WBC (WHITE BLOOD COUNT) Date Value Ref Range Status 12/26/2022 6.3 3.6 - 11.0 10*3/uL Final 08/22/2022 6.4 3.6 - 11.0 10*3/uL Final 04/28/2022 7.3 3.6 - 11.0 10*3/uL Final HEMOGLOBIN (HGB) Date Value Ref Range Status 12/26/2022 12.6 12.0 - 16.0 G/DL Final 08/22/2022 12.8 12.0 - 16.0 G/DL Final 04/28/2022 11.5 (L) 12.0 - 16.0 G/DL Final HEMATOCRIT (HCT) Date Value Ref Range Status 12/26/2022 38.0 36.0 - 48.0 % Final 08/22/2022 39.2 36.0 - 48.0 % Final 04/28/2022 34.7 (L) 36.0 - 48.0 % Final PLATELET COUNT Date Value Ref Range Status 12/26/2022 256 130 - 400 10*3/uL Final 08/22/2022 253 130.0 - 400.0 10*3/uL Final 04/28/2022 346 130.0 - 400.0 10*3/uL Final SODIUM Date Value Ref Range Status 12/26/2022 138 136 - 145 MMOL/L Final 08/22/2022 134 (L) 136 - 145 MMOL/L Final 04/28/2022 138 136 - 145 MMOL/L Final CHLORIDE Date Value Ref Range Status 12/26/2022 100 98 - 107 MMOL/L Final 08/22/2022 97 (L) 98 - 107 MMOL/L Final 04/28/2022 100 98 - 107 MMOL/L Final BUN Date Value Ref Range Status 12/26/2022 43 (H) 7 - 20 MG/DL Final 08/22/2022 52 (H) 7 - 20 MG/DL Final 04/28/2022 28 (H) 7 - 20 MG/DL Final POTASSIUM Date Value Ref Range Status 12/26/2022 4.2 3.5 - 5.1 MMOL/L Final 08/22/2022 4.4 3.5 - 5.1 MMOL/L Final 04/28/2022 4.6 3.5 - 5.1 MMOL/L Final CREATININE SERUM Date Value Ref Range Status 12/26/2022 1.47 (H) 0.52 - 1.04 MG/DL Final 08/22/2022 1.39 (H) 0.52 - 1.04 MG/DL Final 04/28/2022 1.10 (H) 0.52 - 1.04 MG/DL Final Glucose Date Value Ref Range Status 12/26/2022 110 (H) 70 - 100 MG/DL Final Comment: NORMAL <100 mg/dL PREDIABETES 101-126 mg/dL DIABETES 126 mg/dL or higher 08/22/2022 116 (H) 70 - 100 MG/DL Final Comment: NORMAL <100 mg/dL PREDIABETES 101-126 mg/dL DIABETES 126 mg/dL or higher 04/28/2022 107 (H) 70 - 100 MG/DL Final Comment: NORMAL <100 mg/dL PREDIABETES 101-126 mg/dL DIABETES 126 mg/dL or higher PROTEIN, TOTAL Date Value Ref Range Status 08/22/2022 7.0 6.3 - 8.2 GM/DL Final 01/25/2022 6.2 Final Comment: Reference range: 6.0 to 8.5 Unit: g/dL 01/25/2022 6.8 6.3 - 8.2 GM/DL Final Albumin Date Value Ref Range Status 12/26/2022 4.2 3.5 - 5.0 G/dl Final 08/22/2022 4.1 3.5 - 5.0 G/dl Final 04/28/2022 3.9 3.5 - 5.0 G/dl Final AST Date Value Ref Range Status 08/22/2022 20 15 - 41 IU/L Final 01/25/2022 28 15 - 41 IU/L Final 05/19/2021 21 15 - 41 IU/L Final ALT Date Value Ref Range Status 08/22/2022 15 14 - 54 IU/L Final 01/25/2022 31 14 - 54 IU/L Final 05/19/2021 21 14 - 54 IU/L Final BILIRUBIN, TOTAL Date Value Ref Range Status 08/22/2022 1.3 (H) 0.2 - 1.2 MG/DL Final CALCIUM Date Value Ref Range Status 12/26/2022 9.7 8.4 - 10.2 MG/DL Final 08/22/2022 9.3 8.4 - 10.2 MG/DL Final 04/28/2022 9.4 8.4 - 10.2 MG/DL Final PHOSPHORUS Date Value Ref Range Status 12/26/2022 4.3 2.5 - 4.5 MG/DL Final 04/28/2022 3.9 2.5 - 4.5 MG/DL Final 12/23/2021 4.1 2.5 - 4.5 MG/DL Final MAGNESIUM Date Value Ref Range Status 12/26/2022 2.6 (H) 1.6 - 2.3 MG/DL Final 08/22/2022 2.6 (H) 1.6 - 2.3 MG/DL Final 04/28/2022 2.1 1.6 - 2.3 MG/DL Final Lab Results Component Value Date CREATURINE 69.7 12/26/2022 CREATSERUM 1.47 (H) 12/26/2022 BUN 43 (H) 12/26/2022 SODIUM 138 12/26/2022 POTASSIUM 4.2 12/26/2022 CHLORIDE 100 12/26/2022 CO2 27 12/26/2022 ROS: Constitution: No fever, no chill HEENT: No headache, no sinus issues CV: No chest pain, no palpitation Lung: No cough, No SOB Abd: No diarrhea, no constipation Neuro: No seizure, no loss of consciousness Heme: No bleeding, no bruise PHYSICAL EXAM: Wt Readings from Last 3 Encounters: 01/04/23 65.8 kg (145 lb) 09/14/22 65.8 kg (145 lb 1 oz) 08/31/22 65.8 kg (145 lb) Temp Readings from Last 3 Encounters: 09/14/22 97.3 F (36.3 C) 06/14/21 98 F (36.7 C) (Temporal) 05/07/21 98.7 F (37.1 C) (Temporal) BP Readings from Last 3 Encounters: 01/04/23 130/60 09/14/22 102/52 08/31/22 122/82 Pulse Readings from Last 3 Encounters: 01/04/23 71 09/14/22 69 08/31/22 77 Gen: NAD, lying in bed, conversant HEENT: Atraumatic, PERRLA, moist membrane CV: RRR, nl S1 and S2, no m/g/r Lung: CTAB, no wheezing, no crackle Abd: +BS, nontender, no distended Ext: No rash, no clubbing, no cyanosis. No edema. Neuro: CNII-XII grossly intact, 5/5 strength, normal tone Skin: Warm and dry documented in this encounter [facility] 01-03-2023 Note HNO ID: [id number] Author: Christopher Sandoval MD Service: ? Author Type: Physician Type: Progress Notes Filed: 01/03/2023 11:54 AM Note Text: Chief Complaint Patient presents with: F/U 6 Month HPI Ruth Donato is a 81 year old female who presents here today for 6 month follow up. Here today for her routine follow up. States she's doing well at this time. No bowel, Gi, or urinary concerns. Hx of small bowel obstructions. Taking Prilosec 20 mg as needed for GERD sx. HTN AND CHF: Taking Aldactone 25 mg BID, Plavix 75 mg daily and Losartan 25 mg daily. Is taking Farxiga 10 mg daily and Demadex 10 mg 1 tab po daily alternating 2 tabs every other day. Following with Wood Flooring Specialist at [facility] Dr. Benites every 4-6 months. States she is filling up with fluid and Demadex had to be increased. Checking BP at home, notes it's very good. Weighs herself daily at home. Denies any chest pains or dizziness. Notes sob due to CHF. OA AND Gout: Located in both hands and feet.States that nodules have really improved and not having much pain. Taking Prednisone 2.5 mg prn, Uloric 40 mg daily and Colchicine 0.6 mg daily. Following with Joanne Pandya. CVA: Pt taking Plavix 75 mg once daily. Does want to discuss getting a cane due to her balance issues and essential tremor. Denies any falls at this time. Asthma: Notes this is not doing well and getting worse. Reports when she walks a long distance she's desperate for air . Unsure if this is related to CHF or her asthma. Currently taking Symbicort 2 puffs bid, Albuterol for nebulizer prn, Albuterol inhaler prn and Singulair 10 mg daily. Does not follow with Pulmonary. CKD: Stage 3a; follows with Dr. Mchugh, Qa Reviewer at [facility]. Notes kidneys have worsened some and she was advised to increase fluid intake. HM - Does have Adv Dir/Living Will, not on file. Declines feeling down, depressed or hopeless. Depression screen reviewed and is negative. Past medical history, appointments, medications, allergies reviewed. Previous Medical History PAST MEDICAL HISTORY Diagnosis Date Asthma CKD (chronic kidney disease) stage 3, GFR 30-59 ml/min (HCC) Congestive heart failure, unspecified 2002 Cardiology [facility] Diverticulosis of sigmoid External hemorrhoids without mention of complication Family history of malignant neoplasm of gastrointestinal tract Gastric polyps Gout Hiatal hernia History of breast cancer History of skin cancer History of uterine cancer cervical Internal hemorrhoids without mention of complication Iron deficiency anemia Kidney disease Osteopenia Restrictive cardiomyopathy (HCC) TIA (transient ischemic attack) right eye vision changes, carotid US reported as NL Unspecified essential hypertension since age 28 Previous Surgical History PAST SURGICAL HISTORY Procedure Laterality Date APPENDECTOMY CARDIAC CATH X--3 CATARACT EXT; EYEONICS IOL SYS CHOLECYSTECTOMY 1983 COLONOSCOPY FLX DX W/COLLJ SPEC WHEN PFRMD [facility] 2007 Colonoscopy COLONOSCOPY FLX DX W/COLLJ SPEC WHEN PFRMD 06/23/11 COLONOSCOPY FLX DX W/COLLJ SPEC WHEN PFRMD 06/08/16 Colonoscopy (MAC) COLONOSCOPY FLX DX W/COLLJ SPEC WHEN PFRMD 07/15/2019 DILATION AND CURETTAGE DXAND/THER NONOBSTETRIC five Dilation AND curettage DXA BONE DENSITY, AXIAL MAST RAD W/PECTORAL MUSCLES AXILLARY LYMPH NODES 1978 double OOPHORECTOMY PARTIAL/TOTAL UNI/BI 1985 Oophorectomy RECONSTRUCTION ROTATOR CUFF AVULSION CHRONIC 2004 right REPAIR RECTOCELE SEPARATE PROCEDURE 1979 SMALL BOWEL 03/2015 MESENTERIC ISCHEMIA TOTAL ABDOMINAL HYSTERECT W/WO RMVL TUBE OVARY Hysterectomy, RAFIA VAGINAL HYSTERECTOMY UTERUS 250 GM/< 1968 Hysterectomy, vaginal YAG CAPSULOTOMY OD (RIGHT EYE) Right 02/28/2020 Dr. Kaminski Family History FAMILY HISTORY Problem Relation Age of Onset Cancer Mother throat, stomach, colon age 69 ? unclear primary by description Thyroid Mother Heart Father age 57 Hypertension Father Stroke Paternal Grandfather Stroke Paternal Grandmother Diabetes Brother Coronary Artery Disease Maternal Grandfather Cancer Maternal Grandmother pancreatic Patient Allergies ALLERGIES Allergen Reactions Benadryl [Diphenhyd* Shortness of Breath short of breath Krystexxa [Peglotic* Other: See Comments Stopped due to elevated uric acid Sulfur Dioxide Other: See Comments headache Talwin [Pentazocine* Anaphylaxis Valium [Diazepam] Other: See Comments Seizure Adhesive Tape (Xiomara* Contraindication-Medical Surgical Advair Diskus [Flut* Mental Status Change Patient states she gets irritable and agitated but tolerates symbicort Penicillins Rash Sulfa (Sulfonamide * Rash No Bp Or Venipunctu* Current Medications Current Outpatient Medications on File Prior to Visit Medication Sig omeprazole (PRILOSEC) 20 mg capsule Take 1 capsule by mouth daily before break (more content not included)... [facility] 12-20-2022 Evaluation + Plan note Associated Problem(s): Takotsubo cardiomyopathy Resolved. [facility] 12-20-2022 Evaluation + Plan note Associated Problem(s): Hypertension, essential Controlled on medical therapy. Continue current medical regimen. [facility] 12-20-2022 Miscellaneous Notes Associated Problem(s): Takotsubo cardiomyopathy Resolved. Associated Problem(s): Hypertension, essential Controlled on medical therapy. Continue current medical regimen. Associated Problem(s): Acute on chronic heart failure with preserved ejection fraction (HFpEF) (HCC) Patient with HFpEF. She currently is volume overloaded. She does have elevated creatinine 1.82 and a potassium of 5.0. Her weight is slightly up at 134. She usually does better at a weight of 133 or less. I am going to have her increase her Demadex to twice a day for the next 2 days. She will call us on Monday. She may need to take an extra Demadex twice a week to be more euvolemic. We will need to keep a close eye on her creatinine and potassium. We will call her on Monday to see how she is doing. We will check a creatinine, potassium and BMP at the latter end of next week. documented in this encounter [facility] 12-20-2022 Evaluation + Plan note Associated Problem(s): Acute on chronic heart failure with preserved ejection fraction (HFpEF) (HCC) Patient with HFpEF. She currently is volume overloaded. She does have elevated creatinine 1.82 and a potassium of 5.0. Her weight is slightly up at 134. She usually does better at a weight of 133 or less. I am going to have her increase her Demadex to twice a day for the next 2 days. She will call us on Monday. She may need to take an extra Demadex twice a week to be more euvolemic. We will need to keep a close eye on her creatinine and potassium. We will call her on Monday to see how she is doing. We will check a creatinine, potassium and BMP at the latter end of next week. [facility] 12-20-2022 History of Present illness Narrative Interventional Cardiology Clinic Follow-up Heart & Vascular [facility] 12/20/2022 Geovanna Benites MD [address] [id number] Patient: Ruth Donato Date of : 1940 (81 y.o.) PCP: Christopher Sandoval MD Assessment & Plan Acute on chronic heart failure with preserved ejection fraction (HFpEF) ([facility]) Patient with HFpEF. She currently is volume overloaded. She does have elevated creatinine 1.82 and a potassium of 5.0. Her weight is slightly up at 134. She usually does better at a weight of 133 or less. I am going to have her increase her Demadex to twice a day for the next 2 days. She will call us on Monday. She may need to take an extra Demadex twice a week to be more euvolemic. We will need to keep a close eye on her creatinine and potassium. We will call her on Monday to see how she is doing. We will check a creatinine, potassium and BMP at the latter end of next week. Hypertension, essential Controlled on medical therapy. Continue current medical regimen. Takotsubo cardiomyopathy Resolved. Follow-up: Return in about 6 months (around 06/21/2023). Chief Complaint: 6-month follow-up. Subjective History of Present Illness: Ruth Donato is a 81 y.o. female with a history of Takotsubo cardiomyopathy (resolved), HFpEF, hypertension, renal insufficiency and history of pericardial effusion. Patient denies any symptoms of angina. She denies palpitations, lightheadedness or syncope. She does have chronic lower extremity edema. She states she has had some worsening shortness of breath and abdominal distention consistent with her ascites. She will take an extra Demadex with partial improvement. 12/12/2022-creatinine 1.82 potassium 5.0 [id number] CAD 2008 carotid duplex-mild bilateral 06/07/[id number] 68%. No significant valvular abnormalities. Objective Imaging: I independently reviewed the EKG and agree with the interpretation(s) with the following comments. 12/20/[id number] Rhythm -Right atrial enlargement. 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 Right atrial abnormality and rotation -possible pulmonary disease. ECG 12 Lead Final Result by Geovanna Benites MD (12/20/2022 1251) Echocardiogram complete Final Result by Virgilio Scott DO (06/07/2022 1421) Review of Systems: Review of systems performed by the medical supply technician, personally reviewed and viewable in the current patient encounter. Pertinent positive and negative findings detailed in HPI. HOME Medications: Current Outpatient Medications on File Prior to Visit Medication Sig albuterol (PROVENTIL) 2.5 mg/0.5 mL Nebu Take 0.5 mL (2.5 mg total) by nebulization . albuterol 90 mcg/actuation inhaler Inhale 2 (two) puffs as needed for wheezing . aspirin 81 MG EC tablet Take 1 (one) tablet (81 mg total) by mouth daily . clopidogreL (Plavix) 75 mg tablet Take 1 (one) tablet (75 mg total) by mouth daily . dapagliflozin (Farxiga) 10 mg tablet Take 1 (one) tablet (10 mg total) by mouth every morning . febuxostat (ULORIC) 40 mg tablet Take 1 (one) tablet (40 mg total) by mouth daily . losartan (Cozaar) 25 MG tablet Take 1 (one) tablet (25 mg total) by mouth daily . montelukast (SINGULAIR) 10 mg tablet Take 1 (one) tablet (10 mg total) by mouth nightly . nitrofurantoin, macrocrystal-monohydrate, (MACROBID) 100 MG capsule Take 1 (one) capsule (100 mg total) by mouth as needed . omeprazole (PRILOSEC) 40 MG capsule Take 1 (one) capsule (40 mg total) by mouth as needed . spironolactone (ALDACTONE) 25 MG tablet Take 1 (one) tablet (25 mg total) by mouth daily . Symbicort 160-4.5 mcg/actuation inhaler Inhale 2 (two) puffs 2 (two) times a day . torsemide (DEMADEX) 10 MG tablet Take 1-2 tablets daily as needed for swelling or weight gain. . (Patient taking differently: Take 1 (one) tablet (10 mg total) by mouth daily Take 1-2 tablets daily as needed for swelling or weight gain. .) No current facility-administered medications on file prior to visit. Vital Signs: BP 126/68 (BP Location: Right arm, Patient Position: Sitting) Pulse 81 Ht 5' 1 Wt 64.9 kg (143 lb) BMI 27.02 kg/m Physical Exam Neck: Vascular: No carotid bruit. Cardiovascular: Rate and Rhythm: Normal rate and regular rhythm. Heart sounds: No murmur heard. Pulmonary: Effort: Pulmonary effort is normal. Breath sounds: No wheezing or rales. Abdominal: General: There is distension. Musculoskeletal: Right lower leg: Edema present. Left lower leg: Edema present. Labs: I personally reviewed and interpreted the labs documented below. No results found for: CHOL, LDLCALC, LDLDIRECT, TRIG, HDL Creatinine clearance cannot be calculated (Patient's most recent lab result is older than the maximum 14 days allowed.) Construction Management Assistant: Yes documented in this encounter [facility] 12-20-2022 Instructions Magda Brothers RN - 12/20/2022 12:57 PM EDT If your weight is 134 lbs or more when you weigh yourself in the mornings, take an extra Demadex (Torsemide). If you need to start taking more than 1 or 2 extra tablets a week, let us know. Continue to weight yourself every morning after you have used the bathroom and without clothing, and write it down. Take an extra water pill (Demadex/Torsemide) for the next 2 days and if your swelling improves and you feel good, that is probably going to be your new weight. We will check in with you on Monday. To reach Dr. Benites's Nurse Stacker Straightener Robina or Bailee directly, please call [phone]. Please note that this voicemail is NOT checked after 4 pm during the week. It is also not check on holidays or weekends. You can also send messages via My Chart. These are also only answered during normal business hours, M-F. The main office number is [phone] should you have problems during those times and need to speak with the top ironer physician. This is also the number you can use to schedule appointments. The main fax number is [phone]. Office Address: [address] [place] [address], [address] [place] [address] Scheduling Appts or testing: Please call , Option #1 to schedule or reschedule an appointment. Please call if you are unable to keep your appointment. No show appointments are tracked and unfortunately could result in your dismissal from our practice. Prescription Refill Directions: We will refill cardiac medications as long as you are a current patient. When requesting a refill, be sure to do this ahead of time to allow us time to process there refill so that you do not run out of medication. Please send a message through your [employer] or call [facility]ie's direct line to leave a detailed message for a refill. FOR REFILLS: Please leave your full name with spelling Date of Your call back number The medication name with spelling and with directions on how it is prescribed for you to take The pharmacy of your choice with the pharmacy address or phone number. You will not hear back from us regarding your refill request unless there is an issue. If your pharmacy does not notify you that a prescription is ready for you, please call the pharmacy in the next 1-2 days to see if they have the prescription ready for you. High-potassium fruits: Apricots Bananas Cantaloupe Dried fruit Honeydew melon Kiwi Maximilian Nectarines Oranges and orange juice Papaya Pomegranate Pomegranate juice Prunes Prune juice Pumpkin Raisins High-potassium vegetables: [place] squash Bryan squash Palafox squash Avocado Artichoke Beets Baked beans Black beans Refried beans Broccoli (cooked) [place] sprouts Kohlrabi Lentils Okra Onions (fried) Parsnips Potatoes Rutabagas Spinach (cooked) Vegetable juice Tomatoes, tomato sauce, and tomato paste Other high-potassium foods: Bran products Chocolate Coconut Creamed soups Yoruba fries Granola Ice cream Miso Molasses Nuts Peanut butter Potato chips Salt substitutes Seeds Tofu Yogurt Milk (buttermilk, chocolate, eggnog evaporated, malted, soy and milkshakes) documented in this encounter [facility] 12-12-2022 Note HNO ID: [id number] Author: Mona Bone Service: ? Author Type: Physician Type: Progress Notes Filed: 12/12/2022 2:03 PM Note Text: FOLLOW UP PODIATRIC OFFICE VISIT Chief Complaint: This 81 year old who presents for b/l foot pain Patient presents to clinic for evaluation of b/l feet She complains of pain to the side of both 5th metatarsal base. This has been going on for about 3 months. Patient denies any injury She states the pain is so bad that any pressure causes her pain. She states even the bed sheets cause her pain. Patient does not currently take any medication PAIN EVALUATION 12/12/2022 0929 Pain Level: 10 Pain Location: Foot-Left Description: Sharp Duration Units: Weeks Frequency: Continuous Intervention/Comfort measure: Other: See comment Comments: I am wearing extra wide shoes. Hemoglobin A1C Date Value Ref Range Status 10/23/2019 6.2 (H) 4.3 - 5.6 % Final Comment: [place] [employer] guidelines indicate that patients with HgbA1c in the range 5.7-6.4% are at increased risk for development of diabetes, and intervention by lifestyle modification may be beneficial. HgbA1c greater or equal to 6.5% is considered diagnostic of diabetes. PCP: Christopher Sandoval MD PAST MEDICAL HISTORY Diagnosis Date Asthma CKD (chronic kidney disease) stage 3, GFR 30-59 ml/min (HCC) Congestive heart failure, unspecified 2002 Cardiology [facility] Diverticulosis of sigmoid External hemorrhoids without mention of complication Family history of malignant neoplasm of gastrointestinal tract Gastric polyps Gout Hiatal hernia History of breast cancer History of skin cancer History of uterine cancer cervical Internal hemorrhoids without mention of complication Iron deficiency anemia Kidney disease Osteopenia Restrictive cardiomyopathy (HCC) TIA (transient ischemic attack) right eye vision changes, carotid US reported as NL Unspecified essential hypertension since age 28 Current Outpatient Medications Medication Sig omeprazole (PRILOSEC) 20 mg capsule Take 1 capsule by mouth daily before breakfast. 1/2 hr before meal. calcifediol 30 mcg Cs24 Take 1 capsule by mouth once daily. albuterol HFA (VENTOLIN HFA) 90 mcg/actuation inhaler Inhale 2 Puffs as instructed every 4 hours as needed for wheezing/shortness of breath. montelukast (SINGULAIR) 10 mg tablet Take 1 tablet by mouth daily at bedtime. budesonide-formoterol (SYMBICORT) 160-4.5 mcg/actuation inhaler Inhale 2 Puffs as instructed twice daily. FARXIGA 10 mg tablet colchicine 0.6 mg tablet Take 2 tabs by mouth then take 1 tab 1 hour later. albuterol (PROVENTIL) 2.5 mg /3 mL (0.083 %) nebulizer solution Use 3 mL via nebulizer every 6 hours as needed for wheezing/shortness of breath for up to 90 doses. Use over 5-15minutes. clopidogrel (PLAVIX) 75 mg tablet pxcgylaj-strwagdbt-dzsviofqzpedrl (CORTISPORIN) 3.5-10,000-1 mg/mL-unit/mL-% otic suspension Use 3 Drops in the right ear four times daily. aspirin, enteric coated (ASPIRIN, ENTERIC COATED) 81 mg EC tablet Take 1 tablet by mouth once daily. febuxostat (ULORIC) 40 mg tab Take 1 tablet by mouth once daily. spironolactone (ALDACTONE) 25 mg tablet Take 1 tablet by mouth once daily. losartan (COZAAR) 25 mg tablet Take 1 tablet by mouth once daily. torsemide (DEMADEX) 10 mg tablet Take 10 mg by mouth once daily. dipyridamole(PERSANTINE 75 MG TAB) Take one(1) tablet two(2) times daily. (Patient not taking: No sig reported) No current facility-administered medications for this visit. ALLERGIES Allergen Reactions Benadryl [Diphenhyd* Shortness of Breath short of breath Krystexxa [Peglotic* Other: See Comments Stopped due to elevated uric acid Sulfur Dioxide Other: See Comments headache Talwin [Pentazocine* Anaphylaxis Valium [Diazepam] Other: See Comments Seizure Adhesive Tape (Xiomara* Contraindication-Medical Surgical Advair Diskus [Flut* Mental Status Change Patient states she gets irritable and agitated but tolerates symbicort Penicillins Rash Sulfa (Sulfonamide * Rash No Bp Or Venipunctu* PAST SURGICAL HISTORY Procedure Laterality Date APPENDECTOMY CARDIAC CATH X--3 CATARACT EXT; EYEONICS IOL SYS CHOLECYSTECTOMY 1983 COLONOSCOPY FLX DX W/COLLJ SPEC WHEN PFRMD [facility] 2007 Colonoscopy COLONOSCOPY FLX DX W/COLLJ SPEC WHEN PFRMD 06/23/11 COLONOSCOPY FLX DX W/COLLJ SPEC WHEN PFRMD 06/08/16 Colonoscopy (MAC) COLONOSCOPY FLX DX W/COLLJ SPEC WHEN PFRMD 07/15/2019 DILATION AND CURETTAGE DXAND/THER NONOBSTETRIC five Dilation AND curettage DXA BONE DENSITY, AXIAL MAST RAD W/PECTORAL MUSCLES AXILLARY LYMPH NODES 1978 double OOPHORECTOMY PARTIAL/TOTAL UNI/BI 1985 Oophorectomy RECONSTRUCTION ROTATOR CUFF AVULSION CHRONIC 2004 right REPAIR RECTOCELE SEPARATE PROCEDURE 1979 SMALL BOWEL 03/2015 MESENTERIC ISCHEMIA TOTAL ABDOMINAL HYSTERECT W/WO (more content not included)... [facility] 12-12-2022 Note HNO ID: [id number] Author: Nancy Londono LPN Service: ? Author Type: LICENSED NURSE Type: Progress Notes Filed: 12/12/2022 2:03 PM Note Text: AMB ROOMING INTAKE FLOWSHEET DATA Pain Pain Level: 10 Pain Location: Foot-Left Description: Sharp Duration Units: Weeks Frequency: Continuous Intervention/Comfort measure: Other: See comment Comments: I am wearing extra wide shoes. Patient presents with: Left Foot - Foot Deformity, Established Patient, Pain Right Foot - Foot Deformity, Pain, Established Patient Patient stated pain started 3 months ago and pain is 10/10 when touched. Patient states when wearing inserts pain is 10/10 continue. Nancy Londono LPN [facility] 12-12-2022 Instructions Mona Bone - 12/12/2022 1:59 PM EDT Trichloroacetic acid (TCA) has been applied to the plantar warts. Rinse off in 12 hours and keep clean and dry. May bathe and shower normally starting the day after treatment The area is expected to burn and blister in about 1-3 days, if painful soak in plain, cool water. If blistered, you may drain the blister with a clean, STERILIZED needle and apply OTC antibiotic ointment and band aid to area. Repeat 2-3 times daily as needed. Tylenol or Aleve as needed for pain, provided you have no allergies to either of these. Keep scheduled follow up appointment to have wart(s) re-evaluated and/or additional treatments. documented in this encounter [facility] 12-12-2022 History of Present illness Narrative Images from the original note were not included. FOLLOW UP PODIATRIC OFFICE VISIT Chief Complaint: This 81 year old who presents for b/l foot pain Patient presents to clinic for evaluation of b/l feet She complains of pain to the side of both 5th metatarsal base. This has been going on for about 3 months. Patient denies any injury She states the pain is so bad that any pressure causes her pain. She states even the bed sheets cause her pain. Patient does not currently take any medication PAIN EVALUATION 12/12/2022 0929 Pain Level: 10 Pain Location: Foot-Left Description: Sharp Duration Units: Weeks Frequency: Continuous Intervention/Comfort measure: Other: See comment Comments: I am wearing extra wide shoes. Hemoglobin A1C Date Value Ref Range Status 10/23/2019 6.2 (H) 4.3 - 5.6 % Final Comment: [place] [employer] guidelines indicate that patients with HgbA1c in the range 5.7-6.4% are at increased risk for development of diabetes, and intervention by lifestyle modification may be beneficial. HgbA1c greater or equal to 6.5% is considered diagnostic of diabetes. PCP: Christopher Sandoval MD PAST MEDICAL HISTORY Diagnosis Date Asthma CKD (chronic kidney disease) stage 3, GFR 30-59 ml/min (HCC) Congestive heart failure, unspecified 2002 Cardiology [facility] Diverticulosis of sigmoid External hemorrhoids without mention of complication Family history of malignant neoplasm of gastrointestinal tract Gastric polyps Gout Hiatal hernia History of breast cancer History of skin cancer History of uterine cancer cervical Internal hemorrhoids without mention of complication Iron deficiency anemia Kidney disease Osteopenia Restrictive cardiomyopathy (HCC) TIA (transient ischemic attack) right eye vision changes, carotid US reported as NL Unspecified essential hypertension since age 28 Current Outpatient Medications Medication Sig omeprazole (PRILOSEC) 20 mg capsule Take 1 capsule by mouth daily before breakfast. 1/2 hr before meal. calcifediol 30 mcg Cs24 Take 1 capsule by mouth once daily. albuterol HFA (VENTOLIN HFA) 90 mcg/actuation inhaler Inhale 2 Puffs as instructed every 4 hours as needed for wheezing/shortness of breath. montelukast (SINGULAIR) 10 mg tablet Take 1 tablet by mouth daily at bedtime. budesonide-formoterol (SYMBICORT) 160-4.5 mcg/actuation inhaler Inhale 2 Puffs as instructed twice daily. FARXIGA 10 mg tablet colchicine 0.6 mg tablet Take 2 tabs by mouth then take 1 tab 1 hour later. albuterol (PROVENTIL) 2.5 mg /3 mL (0.083 %) nebulizer solution Use 3 mL via nebulizer every 6 hours as needed for wheezing/shortness of breath for up to 90 doses. Use over 5-15minutes. clopidogrel (PLAVIX) 75 mg tablet lvceifqi-exsugbhfn-uhpxugerzarzvx (CORTISPORIN) 3.5-10,000-1 mg/mL-unit/mL-% otic suspension Use 3 Drops in the right ear four times daily. aspirin, enteric coated (ASPIRIN, ENTERIC COATED) 81 mg EC tablet Take 1 tablet by mouth once daily. febuxostat (ULORIC) 40 mg tab Take 1 tablet by mouth once daily. spironolactone (ALDACTONE) 25 mg tablet Take 1 tablet by mouth once daily. losartan (COZAAR) 25 mg tablet Take 1 tablet by mouth once daily. torsemide (DEMADEX) 10 mg tablet Take 10 mg by mouth once daily. dipyridamole(PERSANTINE 75 MG TAB) Take one(1) tablet two(2) times daily. (Patient not taking: No sig reported) No current facility-administered medications for this visit. ALLERGIES Allergen Reactions Benadryl [Diphenhyd* Shortness of Breath short of breath Krystexxa [Peglotic* Other: See Comments Stopped due to elevated uric acid Sulfur Dioxide Other: See Comments headache Talwin [Pentazocine* Anaphylaxis Valium [Diazepam] Other: See Comments Seizure Adhesive Tape (Xiomara* Contraindication-Medical Surgical Advair Diskus [Flut* Mental Status Change Patient states she gets irritable and agitated but tolerates symbicort Penicillins Rash Sulfa (Sulfonamide * Rash No Bp Or Venipunctu* PAST SURGICAL HISTORY Procedure Laterality Date APPENDECTOMY CARDIAC CATH X--3 CATARACT EXT; EYEONICS IOL SYS CHOLECYSTECTOMY 1983 COLONOSCOPY FLX DX W/COLLJ SPEC WHEN PFRMD [facility] 2007 Colonoscopy COLONOSCOPY FLX DX W/COLLJ SPEC WHEN PFRMD 06/23/11 COLONOSCOPY FLX DX W/COLLJ SPEC WHEN PFRMD 9/21/16 Colonoscopy (MAC) COLONOSCOPY FLX DX W/COLLJ SPEC WHEN PFRMD 07/15/2019 DILATION & CURETTAGE DX&/THER NONOBSTETRIC five Dilation & curettage DXA BONE DENSITY, AXIAL MAST RAD W/PECTORAL MUSCLES AXILLARY LYMPH NODES 1978 double OOPHORECTOMY PARTIAL/TOTAL UNI/BI 1985 Oophorectomy RECONSTRUCTION ROTATOR CUFF AVULSION CHRONIC 2003 right REPAIR RECTOCELE SEPARATE PROCEDURE 1979 SMALL BOWEL 03/2015 MESENTERIC ISCHEMIA TOTAL ABDOMINAL HYSTERECT W/WO RMVL TUBE OVARY Hysterectomy, RAFIA VAGINAL HYSTERECTOMY UTERUS 250 GM/< 1968 Hysterectomy, vaginal YAG CAPSULOTOMY OD (RIGHT EYE) Right 02/28/2020 Dr. Kaminski Physical Exam: OBJECTIVE: Constitutional: Pt is a well developed 81 year old female who is alert, oriented, cooperative and in no apparent distress. Eyes: Following during examination. No redness or drainage. Respiratory: RR normal and nonlabored. Even breathing. No evidence of distress. Psychology: Patient is engaged during conversation. Normal affect and mood. Does not appear depressed or anxious. Vascular: DP and PT pulses faintly palpable to b/l lower extremity. Swelling is noted to b/l legs Dermatological: Nails 1-5 b/l are normal. Webspaces clean and dry 1-4 b/l. Skin appears well hydrated and supple. good color, texture, turgor. No open lesions present. Porokeratosis present to plantar aspect of left 5th metatarsa base x 2 Musculoskeletal/Orthopaedic: Patient has pain to palpation of b/l 5th metatarsal base L>R ASSESSMENT: (Q82.8) Porokeratosis (primary encounter diagnosis) Venous insufficiency PLAN: Discussed pain in b/l 5th metatarsal I suspect the pain that she has is more porokeratosis L>R. No porokeratosis on right foot at this time. Would continue with inserts and pummice stone prn Porokeratosis reduced to left foot x 2 with 15 blade. Tca applied under occlusion Offered baseline xray but she declined. If pain fails to improve, consider xray Recommend lower extremity compression stocking for lower extremity edema Mona Bone DPM AMB ROOMING INTAKE FLOWSHEET DATA Pain Pain Level: 10 Pain Location: Foot-Left Description: Sharp Duration Units: Weeks Frequency: Continuous Intervention/Comfort measure: Other: See comment Comments: I am wearing extra wide shoes. Patient presents with: Left Foot - Foot Deformity, Established Patient, Pain Right Foot - Foot Deformity, Pain, Established Patient Patient stated pain started 3 months ago and pain is 10/10 when touched. Patient states when wearing inserts pain is 10/10 continue. Nancy Londono LPN documented in this encounter [facility] 11-16-2022 Note HNO ID: [id number] Author: Kari Katz APRN.ONLINE MERCHANDISING SPECIALIST Service: ? Author Type: Nurse Practitioner Type: Progress Notes Filed: 11/16/2022 5:53 PM Note Text: This is a 81 year old female who presents today with: Patient presents with: Acute Visit: cough, fever and SOB HISTORY OF PRESENT ILLNESS: Ruth Donato is a 81 year old female. Patient presents with: Acute Visit: cough, fever and SOB Here in the office for ongoing cough and fever. Was seen in office on 11/09/2022, symptoms have been ongoing for 2 weeks prior to that visit. Ongoing cough with mucus production. Diagnosed with bronchitis and started on a Z-Edwar. Was seen in [facility] care prior to office visit with negative COVID/flu testing and normal chest x-ray. Still having mild productive cough. SOB has gotten worse. History of asthma, taking Symbicort, Singulair, and albuterol. No night time wakening with cough. Refers that she has ongoing wheezing during the day. SOB with activity that improves with rest. Low grade fevers at home with chills. Finished zpack without any improvement. PAST MEDICAL HISTORY: PAST MEDICAL HISTORY Diagnosis Date Asthma CKD (chronic kidney disease) stage 3, GFR 30-59 ml/min (HCC) [facility]est[facility], unspecified [facility] Diverticulosis of sigmoid External hemorrhoids without mention of complication Family history of malignant neoplasm of gastrointestinal tract Gastric polyps Gout Hiatal hernia History of breast cancer History of skin cancer History of uterine cancer cervical Internal hemorrhoids without mention of complication Iron deficiency anemia Kidney disease Osteopenia Restrictive cardiomyopathy (HCC) TIA (transient ischemic attack) right eye vision changes, carotid US reported as NL Unspecified essential hypertension since age 28 PAST SURGICAL HISTORY Procedure Laterality Date APPENDECTOMY CARDIAC CATH X--3 CATARACT EXT; EYEONICS IOL SYS CHOLECYSTECTOMY 1983 COLONOSCOPY FLX DX W/COLLJ SPEC WHEN PFRMD [facility] 2007 Colonoscopy COLONOSCOPY FLX DX W/COLLJ SPEC WHEN PFRMD 06/23/11 COLONOSCOPY FLX DX W/COLLJ SPEC WHEN PFRMD 06/08/16 Colonoscopy (MAC) COLONOSCOPY FLX DX W/COLLJ SPEC WHEN PFRMD 07/15/2019 DILATION AND CURETTAGE DXAND/THER NONOBSTETRIC five Dilation AND curettage DXA BONE DENSITY, AXIAL MAST RAD W/PECTORAL MUSCLES AXILLARY LYMPH NODES 1978 double OOPHORECTOMY PARTIAL/TOTAL UNI/BI 1985 Oophorectomy RECONSTRUCTION ROTATOR CUFF AVULSION CHRONIC 2004 right REPAIR RECTOCELE SEPARATE PROCEDURE 1979 SMALL BOWEL 03/2015 MESENTERIC ISCHEMIA TOTAL ABDOMINAL HYSTERECT W/WO RMVL TUBE OVARY Hysterectomy, RAFIA VAGINAL HYSTERECTOMY UTERUS 250 GM/< 1968 Hysterectomy, vaginal YAG CAPSULOTOMY OD (RIGHT EYE) Right 02/28/2020 Dr. Kaminski ALLERGIES Benadryl [Diphenhydramine Hcl], Krystexxa [Pegloticase], Sulfur Dioxide, Talwin [Pentazocine Lactate], Valium [Diazepam], Adhesive Tape (Rosins), Advair Diskus [Fluticasone Propion-Salmeterol], Penicillins, Sulfa (Sulfonamide Antibiotics), and No Bp Or Venipunctures Left Arm [Other] MEDICATIONS Current Outpatient Medications Medication Sig nitrofurantoin macrocrystal (MACRODANTIN) 100 mg capsule Take 1 capsule by mouth daily at bedtime for 24 doses. omeprazole (PRILOSEC) 20 mg capsule Take 1 capsule by mouth daily before breakfast. 1/2 hr before meal. calcifediol 30 mcg Cs24 Take 1 capsule by mouth once daily. albuterol HFA (VENTOLIN HFA) 90 mcg/actuation inhaler Inhale 2 Puffs as instructed every 4 hours as needed for wheezing/shortness of breath. montelukast (SINGULAIR) 10 mg tablet Take 1 tablet by mouth daily at bedtime. budesonide-formoterol (SYMBICORT) 160-4.5 mcg/actuation inhaler Inhale 2 Puffs as instructed twice daily. FARXIGA 10 mg tablet colchicine 0.6 mg tablet Take 2 tabs by mouth then take 1 tab 1 hour later. albuterol (PROVENTIL) 2.5 mg /3 mL (0.083 %) nebulizer solution Use 3 mL via nebulizer every 6 hours as needed for wheezing/shortness of breath for up to 90 doses. Use over 5-15minutes. clopidogrel (PLAVIX) 75 mg tablet rhfbyari-gkzagjrav-njlptaauaiyjsu (CORTISPORIN) 3.5-10,000-1 mg/mL-unit/mL-% otic suspension Use 3 Drops in the right ear four times daily. (Patient not taking: Reported on 11/09/2022) aspirin, enteric coated (ASPIRIN, ENTERIC COATED) 81 mg EC tablet Take 1 tablet by mouth once daily. predniSONE (DELTASONE) 5 mg tablet Take 2.5 mg by mouth once daily. From [facility]. (Patient not taking: Reported on 08/17/2022) febuxostat (ULORIC) 40 mg tab Take 1 tablet by mouth once daily. spironolactone (ALDACTONE) 25 mg tablet Take 1 tablet by mouth once daily. losartan (COZAAR) 25 mg tablet Take 1 tablet by mouth once daily. torsemide (DEMADEX) 10 mg tablet Take 10 mg by mouth once daily. dipyridamole(PERSANTINE 75 MG TAB) Take one(1) tablet two(2) times daily. (Patient not taking: No sig repo (more content not included)... [facility] 11-16-2022 Instructions Kari Katz APRN.CNP - 11/16/2022 4:52 PM EST Start the prednisone 20 mg daily for the next 5 days. Take with food., May continue with albuterol and symbicort as prescribed. May use Tessalon Perles as needed for cough. If symptoms do not improve call the office. Follow up as needed. documented in this encounter [facility] 11-16-2022 History of Present illness Narrative This is a 81 year old female who presents today with: Patient presents with: Acute Visit: cough, fever and SOB HISTORY OF PRESENT ILLNESS: Ruth Donato is a 81 year old female. Patient presents with: Acute Visit: cough, fever and SOB Here in the office for ongoing cough and fever. Was seen in office on 11/09/2022, symptoms have been ongoing for 2 weeks prior to that visit. Ongoing cough with mucus production. Diagnosed with bronchitis and started on a Z-Edwar. Was seen in [place] prior to office visit with negative COVID/flu testing and normal chest x-ray. Still having mild productive cough. SOB has gotten worse. History of asthma, taking Symbicort, Singulair, and albuterol. No night time wakening with cough. Refers that she has ongoing wheezing during the day. SOB with activity that improves with rest. Low grade fevers at home with chills. Finished zpack without any improvement. PAST MEDICAL HISTORY: PAST MEDICAL HISTORY Diagnosis Date Asthma CKD (chronic kidney disease) stage 3, GFR 30-59 ml/min (HCC) Congestive heart failure, unspecified 2002 Cardiology [facility] Diverticulosis of sigmoid External hemorrhoids without mention of complication Family history of malignant neoplasm of gastrointestinal tract Gastric polyps Gout Hiatal hernia History of breast cancer History of skin cancer History of uterine cancer cervical Internal hemorrhoids without mention of complication Iron deficiency anemia Kidney disease Osteopenia Restrictive cardiomyopathy (HCC) TIA (transient ischemic attack) right eye vision changes, carotid US reported as NL Unspecified essential hypertension since age 28 PAST SURGICAL HISTORY Procedure Laterality Date APPENDECTOMY CARDIAC CATH X--3 CATARACT EXT; EYEONICS IOL SYS CHOLECYSTECTOMY 1983 COLONOSCOPY FLX DX W/COLLJ SPEC WHEN PFRMD [facility] 2007 Colonoscopy COLONOSCOPY FLX DX W/COLLJ SPEC WHEN PFRMD 06/23/11 COLONOSCOPY FLX DX W/COLLJ SPEC WHEN PFRMD 06/08/16 Colonoscopy (MAC) COLONOSCOPY FLX DX W/COLLJ SPEC WHEN PFRMD 07/15/2019 DILATION & CURETTAGE DX&/THER NONOBSTETRIC five Dilation & curettage DXA BONE DENSITY, AXIAL MAST RAD W/PECTORAL MUSCLES AXILLARY LYMPH NODES 1978 double OOPHORECTOMY PARTIAL/TOTAL UNI/BI 1985 Oophorectomy RECONSTRUCTION ROTATOR CUFF AVULSION CHRONIC 2003 right REPAIR RECTOCELE SEPARATE PROCEDURE 1979 SMALL BOWEL 03/2015 MESENTERIC ISCHEMIA TOTAL ABDOMINAL HYSTERECT W/WO RMVL TUBE OVARY Hysterectomy, RAFIA VAGINAL HYSTERECTOMY UTERUS 250 GM/< 1968 Hysterectomy, vaginal YAG CAPSULOTOMY OD (RIGHT EYE) Right 02/28/2020 Dr. Kaminski ALLERGIES Benadryl [Diphenhydramine Hcl], Krystexxa [Pegloticase], Sulfur Dioxide, Talwin [Pentazocine Lactate], Valium [Diazepam], Adhesive Tape (Rosins), Advair Diskus [Fluticasone Propion-Salmeterol], Penicillins, Sulfa (Sulfonamide Antibiotics), and No Bp Or Venipunctures Left Arm [Other] MEDICATIONS Current Outpatient Medications Medication Sig nitrofurantoin macrocrystal (MACRODANTIN) 100 mg capsule Take 1 capsule by mouth daily at bedtime for 24 doses. omeprazole (PRILOSEC) 20 mg capsule Take 1 capsule by mouth daily before breakfast. 1/2 hr before meal. calcifediol 30 mcg Cs24 Take 1 capsule by mouth once daily. albuterol HFA (VENTOLIN HFA) 90 mcg/actuation inhaler Inhale 2 Puffs as instructed every 4 hours as needed for wheezing/shortness of breath. montelukast (SINGULAIR) 10 mg tablet Take 1 tablet by mouth daily at bedtime. budesonide-formoterol (SYMBICORT) 160-4.5 mcg/actuation inhaler Inhale 2 Puffs as instructed twice daily. FARXIGA 10 mg tablet colchicine 0.6 mg tablet Take 2 tabs by mouth then take 1 tab 1 hour later. albuterol (PROVENTIL) 2.5 mg /3 mL (0.083 %) nebulizer solution Use 3 mL via nebulizer every 6 hours as needed for wheezing/shortness of breath for up to 90 doses. Use over 5-15minutes. clopidogrel (PLAVIX) 75 mg tablet zabrdfso-wzlylaufc-ryksfekifwpsnf (CORTISPORIN) 3.5-10,000-1 mg/mL-unit/mL-% otic suspension Use 3 Drops in the right ear four times daily. (Patient not taking: Reported on 11/09/2022) aspirin, enteric coated (ASPIRIN, ENTERIC COATED) 81 mg EC tablet Take 1 tablet by mouth once daily. predniSONE (DELTASONE) 5 mg tablet Take 2.5 mg by mouth once daily. From [facility]. (Patient not taking: Reported on 08/17/2022) febuxostat (ULORIC) 40 mg tab Take 1 tablet by mouth once daily. spironolactone (ALDACTONE) 25 mg tablet Take 1 tablet by mouth once daily. losartan (COZAAR) 25 mg tablet Take 1 tablet by mouth once daily. torsemide (DEMADEX) 10 mg tablet Take 10 mg by mouth once daily. dipyridamole(PERSANTINE 75 MG TAB) Take one(1) tablet two(2) times daily. (Patient not taking: No sig reported) No current facility-administered medications for this visit. FAMILY HISTORY Problem Relation Age of Onset Cancer Mother throat, stomach, colon age 69 ? unclear primary by description Thyroid Mother Heart Father age 57 Hypertension Father Stroke Paternal Grandfather Stroke Paternal Grandmother Diabetes Brother Coronary Artery Disease Maternal Grandfather Cancer Maternal Grandmother pancreatic Social History Tobacco Use Smoking status: Never Smokeless tobacco: Never Vaping Use Vaping Use: Never used Substance Use Topics Alcohol use: No Drug use: No REVIEW OF SYSTEMS GENERAL: + Fever/Chills HEENT: Negative for frequent or significant headaches, No changes in hearing or vision. NECK: Negative for lumps, goiter, pain and significant neck swelling RESPIRATORY: + cough/SOB CARDIOVASCULAR: Negative for chest pain, leg swelling, orthopnea, or palpitations GI: No nausea, vomiting, or diarrhea/constipation. No hematochezia/melena. No heartburn or reflux symptoms. : No history of dysuria, frequency or incontinence MUSCULOSKELETAL: Negative for joint pain or swelling. SKIN: Negative for lesions, rash, and itching ENDOCRINE: Negative for cold or heat intolerance, polyuria, polydipsia and goiter NEURO: No history of headaches, syncope, paralysis, seizures or tremors MOOD: Negative for depression, anxiety, or suicidal ideation. EXAM: BP 122/78 Pulse 82 Temp 37.6 C (99.6 F) Resp 16 Wt 64.4 kg (142 lb) SpO2 95% BMI 26.83 kg/m PHYSICAL EXAM: General Appearance: Well appearing, alert, in no acute distress, well-hydrated, well nourished.. Skin: Skin color, texture, turgor normal, no suspicious rashes or lesions. Head: Normocephalic, no masses, lesions, tenderness or abnormalities. Eyes: Anicteric sclera. Pupils are equally round and reactive to light. Extraocular movements are intact. Ears: External ears normal, canals clear. TM's pearly garcia. Nose/Sinuses: Nares normal, septum midline, mucosa normal, no drainage or sinus tenderness. Oropharynx: Lips, mucosa, and tongue normal, teeth and gums normal, oropharynx normal. Neck: Supple, no adenopathy; thyroid symmetric, normal size, no bruits. Lungs: Lungs clear to auscultation. No wheezing, rhonchi, rales.. Heart: RRR without murmur, gallop, or rubs. No ectopy. Extremities: No deformities, edema, skin discoloration, clubbing or cyanosis. Good capillary refill. Peripheral Pulses: Normal, Capillary refill <2secs, strong peripheral pulses, Pulses palpable. Neurologic: Gait normal. Sensation grossly intact. ASSESSMENT/PLAN: 1. Mild intermittent asthma with acute exacerbation - ICD9: 493.92, ICD10: J45.21 Mild intermittent Asthma acute excacerbation no respiratory distress Vs. Viral infection - Exam WNL - Continue current meds - Exacerbation treatment of Prednisone burst- see orders - Avoidance of triggers recommended - If symptoms do not improve may need further workup. - PREDNISONE 20 MG TABLET - BENZONATATE 100 MG CAPSULE - GUAIFENESIN ER 600 MG TABLET, EXTENDED RELEASE 12 HR Follow-up as needed or sooner if symptoms get worse or do not improve. Discussed treatment plan and patient voices understanding. Patient's questions answered appropriately. Medications and potential side effects were discussed and patient voices understanding. Kari Katz APRN.ARJUN This note was partially generated using Fjuul voice recognition system. Note was reviewed for accuracy. There may be minor misspellings or grammar miscues with Fjuul voice recognition. documented in this encounter [facility] 11-15-2022 Miscellaneous Notes Rx sent Christopher Sandoval MD documented in this encounter [facility] 11-09-2022 Note HNO ID: [id number] Author: Kari Katz APRN.CNP Service: ? Author Type: Nurse Practitioner Type: Progress Notes Filed: 11/09/2022 2:38 PM Note Text: This is a 81 year old female who presents today with: Patient presents with: Acute Visit: fever and coughing up flem HISTORY OF PRESENT ILLNESS: Ruth Donato is a 81 year old female. Patient presents with: Acute Visit: fever and coughing up flem Here in the office for ongoing cough. Symptoms started about 2 weeks ago. Cough is productive, has not checked color. Low grad fevers at home. History of asthma. No SOB but mild wheezing. No difficulty breathing. Has not tried any OTC cold or cough medication at this time. Was seen in urgent care twice. Diagnosed with Bronchitis 10/29/2022. Covid/Flu Negative. Chest Xray: IMPRESSION: No evidence of acute cardiopulmonary disease. PAST MEDICAL HISTORY: PAST MEDICAL HISTORY Diagnosis Date Asthma CKD (chronic kidney disease) stage 3, GFR 30-59 ml/min (HCC) Congestive heart failure, unspecified 2002 Cardiology [facility] Diverticulosis of sigmoid External hemorrhoids without mention of complication Family history of malignant neoplasm of gastrointestinal tract Gastric polyps Gout Hiatal hernia History of breast cancer History of skin cancer History of uterine cancer cervical Internal hemorrhoids without mention of complication Iron deficiency anemia Kidney disease Osteopenia Restrictive cardiomyopathy (HCC) TIA (transient ischemic attack) right eye vision changes, carotid US reported as NL Unspecified essential hypertension since age 28 PAST SURGICAL HISTORY Procedure Laterality Date APPENDECTOMY CARDIAC CATH X--3 CATARACT EXT; EYEONICS IOL SYS CHOLECYSTECTOMY 1983 COLONOSCOPY FLX DX W/COLLJ SPEC WHEN PFRMD [facility] 2007 Colonoscopy COLONOSCOPY FLX DX W/COLLJ SPEC WHEN PFRMD 06/23/11 COLONOSCOPY FLX DX W/COLLJ SPEC WHEN PFRMD 06/08/16 Colonoscopy (MAC) COLONOSCOPY FLX DX W/COLLJ SPEC WHEN PFRMD 07/15/2019 DILATION AND CURETTAGE DXAND/THER NONOBSTETRIC five Dilation AND curettage DXA BONE DENSITY, AXIAL MAST RAD W/PECTORAL MUSCLES AXILLARY LYMPH NODES 1978 double OOPHORECTOMY PARTIAL/TOTAL UNI/BI 1985 Oophorectomy RECONSTRUCTION ROTATOR CUFF AVULSION CHRONIC 2003 right REPAIR RECTOCELE SEPARATE PROCEDURE 1979 SMALL BOWEL 03/2015 MESENTERIC ISCHEMIA TOTAL ABDOMINAL HYSTERECT W/WO RMVL TUBE OVARY Hysterectomy, RAFIA VAGINAL HYSTERECTOMY UTERUS 250 GM/< 1968 Hysterectomy, vaginal YAG CAPSULOTOMY OD (RIGHT EYE) Right 02/28/2020 Dr. Kaminski ALLERGIES Benadryl [Diphenhydramine Hcl], Krystexxa [Pegloticase], Sulfur Dioxide, Talwin [Pentazocine Lactate], Valium [Diazepam], Adhesive Tape (Rosins), Advair Diskus [Fluticasone Propion-Salmeterol], Penicillins, Sulfa (Sulfonamide Antibiotics), and No Bp Or Venipunctures Left Arm [Other] MEDICATIONS Current Outpatient Medications Medication Sig calcifediol 30 mcg Cs24 Take 1 capsule by mouth once daily. albuterol HFA (VENTOLIN HFA) 90 mcg/actuation inhaler Inhale 2 Puffs as instructed every 4 hours as needed for wheezing/shortness of breath. montelukast (SINGULAIR) 10 mg tablet Take 1 tablet by mouth daily at bedtime. budesonide-formoterol (SYMBICORT) 160-4.5 mcg/actuation inhaler Inhale 2 Puffs as instructed twice daily. FARXIGA 10 mg tablet colchicine 0.6 mg tablet Take 2 tabs by mouth then take 1 tab 1 hour later. albuterol (PROVENTIL) 2.5 mg /3 mL (0.083 %) nebulizer solution Use 3 mL via nebulizer every 6 hours as needed for wheezing/shortness of breath for up to 90 doses. Use over 5-15minutes. clopidogrel (PLAVIX) 75 mg tablet aspirin, enteric coated (ASPIRIN, ENTERIC COATED) 81 mg EC tablet Take 1 tablet by mouth once daily. omeprazole (PRILOSEC) 40 mg capsule Take 1 capsule by mouth once daily. febuxostat (ULORIC) 40 mg tab Take 1 tablet by mouth once daily. spironolactone (ALDACTONE) 25 mg tablet Take 1 tablet by mouth once daily. losartan (COZAAR) 25 mg tablet Take 1 tablet by mouth once daily. nitrofurantoin macrocrystal (MACRODANTIN) 100 mg capsule Take by mouth. iwfmennm-tjtbjkpfm-oldhlkakxxbojc (CORTISPORIN) 3.5-10,000-1 mg/mL-unit/mL-% otic suspension Use 3 Drops in the right ear four times daily. (Patient not taking: Reported on 11/09/2022) predniSONE (DELTASONE) 5 mg tablet Take 2.5 mg by mouth once daily. From [facility]. (Patient not taking: Reported on 08/17/2022) torsemide (DEMADEX) 10 mg tablet Take 10 mg by mouth once daily. dipyridamole(PERSANTINE 75 MG TAB) Take one(1) tablet two(2) times daily. (Patient not taking: No sig reported) No current facility-administered medications for this visit. FAMILY HISTORY Problem Relation Age of Onset Cancer Mother throat, stomach, colon age 69 ? unclear primary by description Thyroid Mother Heart Father age 57 Hypertension Father Stroke Paternal Gran (more content not included)... [facility] 11-09-2022 Instructions Kari Katz APRN.ARJUN - 11/09/2022 1:54 PM EST Start Zpack take as directed. Continue supportive care at home. Stay well hydrated. May use OTC cold and cough medications as needed. Follow up pending test results or sooner as needed. documented in this encounter [facility] 11-09-2022 History of Present illness Narrative This is a 81 year old female who presents today with: Patient presents with: Acute Visit: fever and coughing up flem HISTORY OF PRESENT ILLNESS: Ruth Donato is a 81 year old female. Patient presents with: Acute Visit: fever and coughing up flem Here in the office for ongoing cough. Symptoms started about 2 weeks ago. Cough is productive, has not checked color. Low grad fevers at home. History of asthma. No SOB but mild wheezing. No difficulty breathing. Has not tried any OTC cold or cough medication at this time. Was seen in urgent care twice. Diagnosed with Bronchitis 10/29/2022. Covid/Flu Negative. Chest Xray: IMPRESSION: No evidence of acute cardiopulmonary disease. PAST MEDICAL HISTORY: PAST MEDICAL HISTORY Diagnosis Date Asthma CKD (chronic kidney disease) stage 3, GFR 30-59 ml/min (HCC) Congestive heart failure, unspecified 2002 Cardiology Valdemar Suh, [place] Diverticulosis of sigmoid External hemorrhoids without mention of complication Family history of malignant neoplasm of gastrointestinal tract Gastric polyps Gout Hiatal hernia History of breast cancer History of skin cancer History of uterine cancer cervical Internal hemorrhoids without mention of complication Iron deficiency anemia Kidney disease Osteopenia Restrictive cardiomyopathy (HCC) TIA (transient ischemic attack) right eye vision changes, carotid US reported as NL Unspecified essential hypertension since age 28 PAST SURGICAL HISTORY Procedure Laterality Date APPENDECTOMY CARDIAC CATH X--3 CATARACT EXT; EYEONICS IOL SYS CHOLECYSTECTOMY 1983 COLONOSCOPY FLX DX W/COLLJ SPEC WHEN PFRMD [facility] 2007 Colonoscopy COLONOSCOPY FLX DX W/COLLJ SPEC WHEN PFRMD 06/23/11 COLONOSCOPY FLX DX W/COLLJ SPEC WHEN PFRMD 06/08/16 Colonoscopy (MAC) COLONOSCOPY FLX DX W/COLLJ SPEC WHEN PFRMD 07/15/2019 DILATION & CURETTAGE DX&/THER NONOBSTETRIC five Dilation & curettage DXA BONE DENSITY, AXIAL MAST RAD W/PECTORAL MUSCLES AXILLARY LYMPH NODES 1978 double OOPHORECTOMY PARTIAL/TOTAL UNI/BI 1985 Oophorectomy RECONSTRUCTION ROTATOR CUFF AVULSION CHRONIC 2003 right REPAIR RECTOCELE SEPARATE PROCEDURE 1979 SMALL BOWEL 03/2015 MESENTERIC ISCHEMIA TOTAL ABDOMINAL HYSTERECT W/WO RMVL TUBE OVARY Hysterectomy, RAFIA VAGINAL HYSTERECTOMY UTERUS 250 GM/< 1968 Hysterectomy, vaginal YAG CAPSULOTOMY OD (RIGHT EYE) Right 02/28/2020 Dr. Kaminski ALLERGIES Benadryl [Diphenhydramine Hcl], Krystexxa [Pegloticase], Sulfur Dioxide, Talwin [Pentazocine Lactate], Valium [Diazepam], Adhesive Tape (Rosins), Advair Diskus [Fluticasone Propion-Salmeterol], Penicillins, Sulfa (Sulfonamide Antibiotics), and No Bp Or Venipunctures Left Arm [Other] MEDICATIONS Current Outpatient Medications Medication Sig calcifediol 30 mcg Cs24 Take 1 capsule by mouth once daily. albuterol HFA (VENTOLIN HFA) 90 mcg/actuation inhaler Inhale 2 Puffs as instructed every 4 hours as needed for wheezing/shortness of breath. montelukast (SINGULAIR) 10 mg tablet Take 1 tablet by mouth daily at bedtime. budesonide-formoterol (SYMBICORT) 160-4.5 mcg/actuation inhaler Inhale 2 Puffs as instructed twice daily. FARXIGA 10 mg tablet colchicine 0.6 mg tablet Take 2 tabs by mouth then take 1 tab 1 hour later. albuterol (PROVENTIL) 2.5 mg /3 mL (0.083 %) nebulizer solution Use 3 mL via nebulizer every 6 hours as needed for wheezing/shortness of breath for up to 90 doses. Use over 5-15minutes. clopidogrel (PLAVIX) 75 mg tablet aspirin, enteric coated (ASPIRIN, ENTERIC COATED) 81 mg EC tablet Take 1 tablet by mouth once daily. omeprazole (PRILOSEC) 40 mg capsule Take 1 capsule by mouth once daily. febuxostat (ULORIC) 40 mg tab Take 1 tablet by mouth once daily. spironolactone (ALDACTONE) 25 mg tablet Take 1 tablet by mouth once daily. losartan (COZAAR) 25 mg tablet Take 1 tablet by mouth once daily. nitrofurantoin macrocrystal (MACRODANTIN) 100 mg capsule Take by mouth. cemgcvnf-emqfbevmv-lppxudyobslnua (CORTISPORIN) 3.5-10,000-1 mg/mL-unit/mL-% otic suspension Use 3 Drops in the right ear four times daily. (Patient not taking: Reported on 11/09/2022) predniSONE (DELTASONE) 5 mg tablet Take 2.5 mg by mouth once daily. From [facility]. (Patient not taking: Reported on 08/17/2022) torsemide (DEMADEX) 10 mg tablet Take 10 mg by mouth once daily. dipyridamole(PERSANTINE 75 MG TAB) Take one(1) tablet two(2) times daily. (Patient not taking: No sig reported) No current facility-administered medications for this visit. FAMILY HISTORY Problem Relation Age of Onset Cancer Mother throat, stomach, colon age 69 ? unclear primary by description Thyroid Mother Heart Father age 57 Hypertension Father Stroke Paternal Grandfather Stroke Paternal Grandmother Diabetes Brother Coronary Artery Disease Maternal Grandfather Cancer Maternal Grandmother pancreatic Social History Tobacco Use Smoking status: Never Smokeless tobacco: Never Vaping Use Vaping Use: Never used Substance Use Topics Alcohol use: No Drug use: No REVIEW OF SYSTEMS GENERAL: No weight loss, malaise or fevers/chills HEENT: Negative for frequent or significant headaches, No changes in hearing or vision. NECK: Negative for lumps, goiter, pain and significant neck swelling RESPIRATORY: + Cough CARDIOVASCULAR: Negative for chest pain, leg swelling, orthopnea, or palpitations GI: No nausea, vomiting, or diarrhea/constipation. No hematochezia/melena. No heartburn or reflux symptoms. : No history of dysuria, frequency or incontinence MUSCULOSKELETAL: Negative for joint pain or swelling. SKIN: Negative for lesions, rash, and itching ENDOCRINE: Negative for cold or heat intolerance, polyuria, polydipsia and goiter NEURO: No history of headaches, syncope, paralysis, seizures or tremors MOOD: Negative for depression, anxiety, or suicidal ideation. EXAM: BP 118/70 Pulse 81 Resp 16 Wt 64 kg (141 lb) SpO2 96% BMI 26.64 kg/m PHYSICAL EXAM: General Appearance: Well appearing, alert, in no acute distress, well-hydrated, well nourished. Skin: Skin color, texture, turgor normal, no suspicious rashes or lesions. Head: Normocephalic, no masses, lesions, tenderness or abnormalities. Eyes: Anicteric sclera. Extraocular movements are intact. Ears: External ears normal, canals clear. TM's pearly garcia. Nose/Sinuses: Nares normal, septum midline, mucosa normal, no drainage or sinus tenderness. Oropharynx: Lips, mucosa, and tongue normal, teeth and gums normal, oropharynx normal. Neck: Supple, no adenopathy; thyroid symmetric, normal size, no bruits. Lungs: Positive findings: mild wheezing Cough. Heart: RRR without murmur, gallop, or rubs. No ectopy. Extremities: No deformities, edema, skin discoloration, clubbing or cyanosis. Good capillary refill. Peripheral Pulses: Normal, Capillary refill <2secs, strong peripheral pulses, Pulses palpable. Neurologic: Gait normal. Sensation grossly intact. ASSESSMENT/PLAN: 1. Bronchitis - ICD9: 490, ICD10: J40 (primary diagnosis) - Due to ongoing symptoms and history of asthma, treat with zpack. - Continue supportive care at home, may use wwkw-yun-megifck cold and cough medication as needed for symptom management. - Stay well hydrated. Continue to use inhalers as prescribed. - AZITHROMYCIN 250 MG TABLET 2. History of recurrent UTIs - ICD9: V13.02, ICD10: Z87.440 - Refill provided. - NITROFURANTOIN MACROCRYSTAL 100 MG CAPSULE 3. Gastroesophageal reflux disease, unspecified whether esophagitis present - ICD9: 530.81, ICD10: K21.9 - Requesting refill will decrease mg, refill provided. - OMEPRAZOLE 20 MG CAPSULE,DELAYED RELEASE Follow up as needed or sooner if symptoms get worse or do not improve. Discussed treatment plan and patient voices understanding. Patient's questions answered appropriately. Medications and potential side effects were discussed and patient voices understanding. Kari Katz APRN.ARJUN This note was partially generated using Fjuul voice recognition system. Note was reviewed for accuracy. There may be minor misspellings or grammar miscues with Fjuul voice recognition. documented in this encounter [facility] 11-06-2022 Note HNO ID: [id number] Author: Blanca Wells APRN.AJRUN Service: ? Author Type: Nurse Practitioner Type: Progress Notes Filed: 11/06/2022 10:41 AM Note Text: CC: Patient presents with: Fever: Discomfort in esophagus , cough x 1 month Patient's had acid reflux symptoms for about a month. Patient quit taking her omeprazole due to reading that it could cause dementia. Patient was instructed to contact PCP and discuss this issue as to not leave acid reflux untreated. Patient will do that. Patient's cough and fever started yesterday. Afebriles today denies other symptoms. HPI: Ruth Donato is a 81 year old female who presents to the office with complaint of cough, nonproductive and fever for the past day. Symptoms are staying the same. Associated symptoms includes cough. Denies nasal congestion, wheezing, dyspnea, nausea, vomiting , and diarrhea. Treatments tried include nothing so far. with no relief of symptoms. Sick contacts: unknown. History of asthma, frequent episodes of bronchitis, chronic bronchitis, bronchiectasis or COPD: No Smoker: No Seasonal/environmental allergies: No The ROS is otherwise negative. The patient's pmh, medications, allergies, and past visits are reviewed. PHYSICAL EXAM: BP 118/64 Pulse 82 Temp 36.3 ?C (97.3 ?F) Resp 20 Wt 64.2 kg (141 lb 9.6 oz) SpO2 99% BMI 26.76 kg/m? General appearance: alert, cooperative, pleasant, in no acute distress Head: Normocephalic Eyes: EOM's intact, conjunctiva pink and moist, no icterus, sclera white, non-injected Ears: Right ear: External ear/canal- Normal, TM - clear with good landmarks. Left ear: External ear/canal- Normal, TM - clear with good landmarks Oropharynx:moist without lesions, No erythema, exudates or tonsillar hypertrophy. Heart: Negative. RRR without obvious murmur, gallop, or rubs. No ectopy. Lungs: clear to auscultation, without rales or wheeze, good air exchange PAST MEDICAL HISTORY Diagnosis Date Asthma CKD (chronic kidney disease) stage 3, GFR 30-59 ml/min (HCC) Congestive heart failure, unspecified 2002 Cardiology [facility] Diverticulosis of sigmoid External hemorrhoids without mention of complication Family history of malignant neoplasm of gastrointestinal tract Gastric polyps Gout Hiatal hernia History of breast cancer History of skin cancer History of uterine cancer cervical Internal hemorrhoids without mention of complication Iron deficiency anemia Kidney disease Osteopenia Restrictive cardiomyopathy (HCC) TIA (transient ischemic attack) right eye vision changes, carotid US reported as NL Unspecified essential hypertension since age 28 PAST SURGICAL HISTORY Procedure Laterality Date APPENDECTOMY CARDIAC CATH X--3 CATARACT EXT; EYEONICS IOL SYS CHOLECYSTECTOMY 1983 COLONOSCOPY FLX DX W/COLLJ SPEC WHEN PFRMD [facility] 2007 Colonoscopy COLONOSCOPY FLX DX W/COLLJ SPEC WHEN PFRMD 06/23/11 COLONOSCOPY FLX DX W/COLLJ SPEC WHEN PFRMD 06/08/16 Colonoscopy (MAC) COLONOSCOPY FLX DX W/COLLJ SPEC WHEN PFRMD 07/15/2019 DILATION AND CURETTAGE DXAND/THER NONOBSTETRIC five Dilation AND curettage DXA BONE DENSITY, AXIAL MAST RAD W/PECTORAL MUSCLES AXILLARY LYMPH NODES 1978 double OOPHORECTOMY PARTIAL/TOTAL UNI/BI 1985 Oophorectomy RECONSTRUCTION ROTATOR CUFF AVULSION CHRONIC 2003 right REPAIR RECTOCELE SEPARATE PROCEDURE 1979 SMALL BOWEL 03/2015 MESENTERIC ISCHEMIA TOTAL ABDOMINAL HYSTERECT W/WO RMVL TUBE OVARY Hysterectomy, RAFIA VAGINAL HYSTERECTOMY UTERUS 250 GM/< 1968 Hysterectomy, vaginal YAG CAPSULOTOMY OD (RIGHT EYE) Right 02/28/2020 Dr. Kaminski ALLERGIES Benadryl [Diphenhydramine Hcl], Krystexxa [Pegloticase], Sulfur Dioxide, Talwin [Pentazocine Lactate], Valium [Diazepam], Adhesive Tape (Rosins), Advair Diskus [Fluticasone Propion-Salmeterol], Penicillins, Sulfa (Sulfonamide Antibiotics), and No Bp Or Venipunctures Left Arm [Other] MEDICATIONS calcifediol 30 mcg Cs24 Take 1 capsule by mouth once daily. guaiFENesin (MUCINEX) 600 mg 12 hr tablet Take 1 tablet by mouth twice daily for 10 days. benzonatate (TESSALON PERLE) 100 mg capsule Take 1 capsule by mouth three times daily as needed for up to 10 days. albuterol HFA (VENTOLIN HFA) 90 mcg/actuation inhaler Inhale 2 Puffs as instructed every 4 hours as needed for wheezing/shortness of breath. montelukast (SINGULAIR) 10 mg tablet Take 1 tablet by mouth daily at bedtime. budesonide-formoterol (SYMBICORT) 160-4.5 mcg/actuation inhaler Inhale 2 Puffs as instructed twice daily. FARXIGA 10 mg tablet colchicine 0.6 mg tablet Take 2 tabs by mouth then take 1 tab 1 hour later. nitrofurantoin macrocrystal (MACRODANTIN) 100 mg capsule Take by mouth. albuterol (PROVENTIL) 2.5 mg /3 mL (0.083 %) nebulizer solution Use 3 mL via nebulizer every 6 hours as needed for wheezing/shortness of breath for up to 90 doses. Use over 5-15m (more content not included)... [facility] 10-30-2022 Miscellaneous Notes Patient given results and verbalized understanding of instructions given. Yolanda Galeano ----- Message from Anny Hawkins APRN.ONLINE MERCHANDISING SPECIALIST sent at 10/30/2022 8:10 AM EST ----- Please advise patient the COVID and flu test was negative. documented in this encounter [facility] 10-29-2022 Note HNO ID: [id number] Author: RT Blanche(R) Service: ? Author Type: Chainstitch Tunnel Elastic Operator Type: Progress Notes Filed: 10/29/2022 12:13 PM Note Text: Radiology Service Progress Note PATIENT NAME: Ruth Donato DATE OF SERVICE: October 29, 2022 TIME: 12:04 PM PATIENT IDENTITY VERIFICATION COMPLETED USING TWO (2) IDENTIFIERS: Name and Date of confirmed by patient verbally. FALL SCREENING: Has the patient had 2 falls in the last year or 1 fall with injury or currently using an Ambulatory Assistive Device (Walker, Cane, Wheelchair, Crutches, etc.)? No PATIENT GENDER DATA: Female. status: : No status: NO. PATIENT RELEVANT IMPLANT DATA REVIEWED: Yes RADIOLOGY DEPARTMENT: General X-ray: Exam(s) Completed: Chest X-Ray PERIPHERAL IV DATA: Not applicable SIGNED BY: RT Blanche(R) October 29, 2022 12:04 PM [facility] 10-29-2022 Note HNO ID: [id number] Author: Anny Hawkins APRN.ONLINE MERCHANDISING SPECIALIST Service: ? Author Type: Nurse Practitioner Type: Progress Notes Filed: 10/29/2022 1:35 PM Note Text: Subjective Cough Associated symptoms include wheezing. Pertinent negatives include no chills, no headaches, no myalgias and no shortness of breath. Ruth Donato is a 81 year old female who presents with 2 weeks of cough and a burning sensation in her upper chest and esophagus. She has not had a fever. The cough is not productive. She denies sensation of heartburn, GERD, and states when she has had GERD in the past she eats ice cream which alleviates her symptoms. She has eaten ice cream every day in the past 2 weeks and the sensation has not changed. She denies shortness of breath. Hears some wheezing when she takes deep breaths. Review of Systems Constitutional: Negative for chills and fever. Respiratory: Positive for cough and wheezing. Negative for sputum production and shortness of breath. Cardiovascular: See HPI Gastrointestinal: Negative for abdominal pain, diarrhea, heartburn, nausea and vomiting. Musculoskeletal: Negative for myalgias. Neurological: Negative for headaches. BP 118/70 Pulse 70 Temp 36.2 ?C (97.2 ?F) Resp 16 Wt 64.9 kg (143 lb) SpO2 96% BMI 27.02 kg/m? PAST MEDICAL HISTORY Diagnosis Date Asthma CKD (chronic kidney disease) stage 3, GFR 30-59 ml/min (HCC) Congestive heart failure, unspecified 2002 Cardiology Geovannanila Benites [facility] Diverticulosis of sigmoid External hemorrhoids without mention of complication Family history of malignant neoplasm of gastrointestinal tract Gastric polyps Gout Hiatal hernia History of breast cancer History of skin cancer History of uterine cancer cervical Internal hemorrhoids without mention of complication Iron deficiency anemia Kidney disease Osteopenia Restrictive cardiomyopathy (HCC) TIA (transient ischemic attack) right eye vision changes, carotid US reported as NL Unspecified essential hypertension since age 28 PAST SURGICAL HISTORY Procedure Laterality Date APPENDECTOMY CARDIAC CATH X--3 CATARACT EXT; EYEONICS IOL SYS CHOLECYSTECTOMY 1983 COLONOSCOPY FLX DX W/COLLJ SPEC WHEN PFRMD [facility] 2007 Colonoscopy COLONOSCOPY FLX DX W/COLLJ SPEC WHEN PFRMD 06/23/11 COLONOSCOPY FLX DX W/COLLJ SPEC WHEN PFRMD 06/08/16 Colonoscopy (MAC) COLONOSCOPY FLX DX W/COLLJ SPEC WHEN PFRMD 07/15/2019 DILATION AND CURETTAGE DXAND/THER NONOBSTETRIC five Dilation AND curettage DXA BONE DENSITY, AXIAL MAST RAD W/PECTORAL MUSCLES AXILLARY LYMPH NODES 1978 double OOPHORECTOMY PARTIAL/TOTAL UNI/BI 1985 Oophorectomy RECONSTRUCTION ROTATOR CUFF AVULSION CHRONIC 2003 right REPAIR RECTOCELE SEPARATE PROCEDURE 1979 SMALL BOWEL 03/2015 MESENTERIC ISCHEMIA TOTAL ABDOMINAL HYSTERECT W/WO RMVL TUBE OVARY Hysterectomy, RAFIA VAGINAL HYSTERECTOMY UTERUS 250 GM/< 1968 Hysterectomy, vaginal YAG CAPSULOTOMY OD (RIGHT EYE) Right 02/28/2020 Dr. Kaminski ALLERGIES Benadryl [Diphenhydramine Hcl], Krystexxa [Pegloticase], Sulfur Dioxide, Talwin [Pentazocine Lactate], Valium [Diazepam], Adhesive Tape (Rosins), Advair Diskus [Fluticasone Propion-Salmeterol], Penicillins, Sulfa (Sulfonamide Antibiotics), and No Bp Or Venipunctures Left Arm [Other] MEDICATIONS calcifediol 30 mcg Cs24 Take 1 capsule by mouth once daily. albuterol HFA (VENTOLIN HFA) 90 mcg/actuation inhaler Inhale 2 Puffs as instructed every 4 hours as needed for wheezing/shortness of breath. montelukast (SINGULAIR) 10 mg tablet Take 1 tablet by mouth daily at bedtime. budesonide-formoterol (SYMBICORT) 160-4.5 mcg/actuation inhaler Inhale 2 Puffs as instructed twice daily. FARXIGA 10 mg tablet colchicine 0.6 mg tablet Take 2 tabs by mouth then take 1 tab 1 hour later. nitrofurantoin macrocrystal (MACRODANTIN) 100 mg capsule Take by mouth. albuterol (PROVENTIL) 2.5 mg /3 mL (0.083 %) nebulizer solution Use 3 mL via nebulizer every 6 hours as needed for wheezing/shortness of breath for up to 90 doses. Use over 5-15minutes. clopidogrel (PLAVIX) 75 mg tablet hebftwsu-mxplmtrpv-gaobqkeorutump (CORTISPORIN) 3.5-10,000-1 mg/mL-unit/mL-% otic suspension Use 3 Drops in the right ear four times daily. aspirin, enteric coated (ASPIRIN, ENTERIC COATED) 81 mg EC tablet Take 1 tablet by mouth once daily. omeprazole (PRILOSEC) 40 mg capsule Take 1 capsule by mouth once daily. febuxostat (ULORIC) 40 mg tab Take 1 tablet by mouth once daily. spironolactone (ALDACTONE) 25 mg tablet Take 1 tablet by mouth once daily. losartan (COZAAR) 25 mg tablet Take 1 tablet by mouth once daily. torsemide (DEMADEX) 10 mg tablet Take 10 mg by mouth once daily. predniSONE (DELTASONE) 5 mg tablet Take 2.5 mg by mouth once daily. From [facility]. (Patient not taking: Reported on 08/17/2022) dipyridamole(PERSANTINE 75 MG TAB) Take one(1) tablet two(2) times daily. (more content not included)... [facility] 09-23-2022 Telephone encounter Note Pharmacy requesting refill. Last OV 05/[address] Benites to fill. Per request will send to [facility] Jono K 4.4 09/06/22 [facility] 09-23-2022 Miscellaneous Notes Pharmacy requesting refill. Last OV 05/[address] Benites to fill. Per request will send to [facility] Last K 4.4 09/06/22 documented in this encounter [facility] 08-31-2022 History of Present illness Narrative DAILY PROGRESS NOTE Admit Date: (Not on file) Date of Evaluation: :47 PM [facility] IMPRESSION AND PLAN: 80 y/o female with history of CVA, CHF, GERD, asthma, gout and CKD III is here for CKD care. 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 Renal US disclosed cortical lobulation and scarring of the mildly atrophic kidneys without hydronephrosis on either side. Continue with torsemide 10mg PO Qday. Continue with farxiga. Will get renal panel. 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 Uric acid 11.2 -> 4.6 She is on uloric 3) Chronic normocytic anemia: H and H 11.8 -> 12.3 -> 12.6 -> 11.5 -> 12.8 and 35.1 -> 37.7 -> 37.6 -> 34.7 -> 39.2 Last colonoscopy 2019 Will get CBC. 4) Hyperparathyroid PTH 133.7 Vitamin D 29.5 Will start rayaldee. Will consult pharmacy. SUBJECTIVE: Patient seen and examined. Chart, medications, labs reviewed. Appointment on 08/22/2022 Component Date Value Ref Range Status VITAMIN D 25 HYDROXY 08/22/2022 29.5 (L) >30 NG/ML Final Comment: DEFICIENT <20 NG/ML INSUFFICIENT 20-<30 NG/ML SUFFICIENT 30-100 NG/ML POTENTIAL TOXICITY >100 NG/ML URIC ACID 08/22/2022 3.2 2.5 - 6.2 MG/DL Final PTH INTACT 08/22/2022 133.7 (H) 12 - 88 pg/mL Final MAGNESIUM 08/22/2022 2.6 (H) 1.6 - 2.3 MG/DL Final WBC (WHITE BLOOD COUNT) 08/22/2022 6.4 3.6 - 11.0 10*3/uL Final RBC 08/22/2022 4.22 4.0 - 5.4 10*6/uL Final HEMOGLOBIN (HGB) 08/22/2022 12.8 12.0 - 16.0 G/DL Final HEMATOCRIT (HCT) 08/22/2022 39.2 36.0 - 48.0 % Final MEAN CELL VOLUME 08/22/2022 92.7 80.0 - 100.0 FL Final Mean Cell HGB 08/22/2022 30.2 26.0 - 35.0 PG Final MEAN CELL HGB CONCENTRATION 08/22/2022 32.6 27.0 - 37.0 G/DL Final RBC DISTRIBUTION 08/22/2022 14.2 11.5 - 14.5 % Final PLATELET COUNT 08/22/2022 253 130.0 - 400.0 10*3/uL Final MEAN PLATELET VOLUME 08/22/2022 6.8 (L) 7.4 - 11.0 FL Final DIFFERENTIAL TYPE 08/22/2022 AUTO DIFF % Final NEUTROPHILS 08/22/2022 74.3 37.0 - 75.0 % Final LYMPHOCYTE 08/22/2022 15.1 (L) 20.0 - 55.0 % Final MONOCYTE % 08/22/2022 8.5 0.0 - 10.0 % Final EOSINOPHIL % 08/22/2022 1.7 0.0 - 11.0 % Final BASOPHIL % 08/22/2022 0.4 0.0 - 2.0 % Final Absolute Neutrophil Count 08/22/2022 4.8 1.4 - 6.5 10*3/uL Final LYMPHOCYTES, ABSOLUTE 08/22/2022 1.0 (L) 1.2 - 3.4 10*3/uL Final MONOCYTES, ABSOLUTE 08/22/2022 0.5 0.0 - 0.7 10*3/uL Final ABSOLUTE EOSINOPHIL COUNT 08/22/2022 0.1 0.0 - 0.7 10*3/uL Final ABSOLUTE BASOPHIL COUNT 08/22/2022 0.0 0.0 - 0.2 10*3/uL Final GLUCOSE 08/22/2022 116 (H) 70 - 100 MG/DL Final Comment: NORMAL <100 mg/dL PREDIABETES 101-126 mg/dL DIABETES 126 mg/dL or higher BUN 08/22/2022 52 (H) 7 - 20 MG/DL Final CREATININE SERUM 08/22/2022 1.39 (H) 0.52 - 1.04 MG/DL Final SODIUM 08/22/2022 134 (L) 136 - 145 MMOL/L Final POTASSIUM 08/22/2022 4.4 3.5 - 5.1 MMOL/L Final CHLORIDE 08/22/2022 97 (L) 98 - 107 MMOL/L Final CALCIUM 08/22/2022 9.3 8.4 - 10.2 MG/DL Final PROTEIN, TOTAL 08/22/2022 7.0 6.3 - 8.2 GM/DL Final Albumin 08/22/2022 4.1 3.5 - 5.0 G/dl Final BILIRUBIN, TOTAL 08/22/2022 1.3 (H) 0.2 - 1.2 MG/DL Final AST 08/22/2022 20 15 - 41 IU/L Final ALKALINE PHOSPHATASE 08/22/2022 100 38 - 126 IU/L Final CARBON DIOXIDE (CO2) 08/22/2022 26 22 - 30 MMOL/L Final A/G Ratio 08/22/2022 1.4 1.3 - 2.2 RATIO Final ALT 08/22/2022 15 14 - 54 IU/L Final ESTIMATED GFR, NON AMER 08/22/2022 38 ml/min/1.73sq.m Final ESTIMATED GFR, 08/22/2022 47 ml/min/1.73sq.m Final GFR COMMENT 08/22/2022 Average GFR for 70+ years old = 75. Final Comment: Chronic Kidney disease, GFR = <60. Kidney failure, GFR = <15. The GFR estimate is not adjusted for extreme body surface area or acute process, nor has it been validated for women or ethnic groups other than and . PROTEIN MG/DL-URINE 08/22/2022 4 <10 MG/DL Final CREATININE, MG/DL, URINE 08/22/2022 54.9 MG/DL Final NO NORMAL VALUES ESTABLISHED FOR RANDOM SPECIMENS PROTEIN/CREAT RATIO, URINE 08/22/2022 0.1 Final Comment: REFERENCE RANGES <0.2 NORMAL 0.2-3.5 NON-NEPHROTIC >3.5 NEPHROTIC COLOR, URINE 08/22/2022 YELLOW YELLOW Final APPEARANCE, URINE 08/22/2022 CLEAR CLEAR Final Specific [place], Urine 08/22/2022 1.020 1.010 - 1.025 Final PH URINE 08/22/2022 5.5 5.0 - 7.0 Final PROTEIN, URINE 08/22/2022 NEGATIVE NEGATIVE mg/dl Final GLUCOSE, URINE 08/22/2022 500 (A) NEGATIVE mg/dl Final KETONES, URINE 08/22/2022 NEGATIVE NEGATIVE mg/dl Final BILIRUBIN, URINE 08/22/2022 NEGATIVE NEGATIVE Final BLOOD, URINE DIPSTICK 08/22/2022 TRACE-LYSED (A) NEGATIVE Final NITRITES, URINE 08/22/2022 NEGATIVE NEGATIVE Final UROBILINOGEN, URINE 08/22/2022 0.2 0.2 - 1.0 E.U./dL Final LEUKOCYTE ESTERASE, URINE 08/22/2022 SMALL (A) NEGATIVE Final SODIUM, URINE RANDOM 08/22/2022 40 MMOL/L Final WBC, URINE 08/22/2022 1 TO 5 NEGATIVE /HPF Final RBC, URINE 08/22/2022 NEGATIVE NEGATIVE /HPF Final Epithelial Cells UA 08/22/2022 1 TO 5 /HPF Final Mucus 08/22/2022 TRACE (A) NEGATIVE Final BACTERIA, URINE 08/22/2022 1+ (A) NEGATIVE Final CRYSTALS, URINE 08/22/2022 AMORPHOUS URATES (A) NONE Final CASTS, URINE 08/22/2022 NONE NONE /LPF Final COMMENT, URINE 08/22/2022 REFLEX CULTURE PER ESTABLISHED CRITERIA. Final SPECIMEN DESCRIPTION 08/22/2022 URINE CLEAN CATCH Final UA Dipstick 08/22/2022 LEUKOCYTE NEGATIVE Final NITRITE POSITIVE RESULT-CULT 08/22/2022 NO PATHOGENS ISOLATED Final Testing performed at [facility], [place], [place] [address] Report Status 08/22/2022 08/24/2022 Final FINAL LABS Labs-ABAntonio @ABGROUNDS@ Labs-CBC @[email or web address]@ Labs-Chem 7(PMC) @[facility]@ Labs-Coags WBC (WHITE BLOOD COUNT) Date Value Ref Range Status 08/22/2022 6.4 3.6 - 11.0 10*3/uL Final 04/28/2022 7.3 3.6 - 11.0 10*3/uL Final 01/25/2022 6.3 3.6 - 11.0 10*3/uL Final HEMOGLOBIN (HGB) Date Value Ref Range Status 08/22/2022 12.8 12.0 - 16.0 G/DL Final 04/28/2022 11.5 (L) 12.0 - 16.0 G/DL Final 01/25/2022 12.4 12.0 - 16.0 G/DL Final HEMATOCRIT (HCT) Date Value Ref Range Status 08/22/2022 39.2 36.0 - 48.0 % Final 04/28/2022 34.7 (L) 36.0 - 48.0 % Final 01/25/2022 36.9 36.0 - 48.0 % Final PLATELET COUNT Date Value Ref Range Status 08/22/2022 253 130.0 - 400.0 10*3/uL Final 04/28/2022 346 130.0 - 400.0 10*3/uL Final 01/25/2022 300 130.0 - 400.0 10*3/uL Final SODIUM Date Value Ref Range Status 08/22/2022 134 (L) 136 - 145 MMOL/L Final 04/28/2022 138 136 - 145 MMOL/L Final 01/25/2022 137 136 - 145 MMOL/L Final CHLORIDE Date Value Ref Range Status 08/22/2022 97 (L) 98 - 107 MMOL/L Final 04/28/2022 100 98 - 107 MMOL/L Final 01/25/2022 101 98 - 107 MMOL/L Final BUN Date Value Ref Range Status 08/22/2022 52 (H) 7 - 20 MG/DL Final 04/28/2022 28 (H) 7 - 20 MG/DL Final 01/25/2022 40 (H) 7 - 20 MG/DL Final POTASSIUM Date Value Ref Range Status 08/22/2022 4.4 3.5 - 5.1 MMOL/L Final 04/28/2022 4.6 3.5 - 5.1 MMOL/L Final 01/25/2022 4.5 3.5 - 5.1 MMOL/L Final CREATININE SERUM Date Value Ref Range Status 08/22/2022 1.39 (H) 0.52 - 1.04 MG/DL Final 04/28/2022 1.10 (H) 0.52 - 1.04 MG/DL Final 01/25/2022 1.09 (H) 0.52 - 1.04 MG/DL Final GLUCOSE Date Value Ref Range Status 08/22/2022 116 (H) 70 - 100 MG/DL Final Comment: NORMAL <100 mg/dL PREDIABETES 101-126 mg/dL DIABETES 126 mg/dL or higher 04/28/2022 107 (H) 70 - 100 MG/DL Final Comment: NORMAL <100 mg/dL PREDIABETES 101-126 mg/dL DIABETES 126 mg/dL or higher 01/25/2022 123 (H) 70 - 100 MG/DL Final Comment: NORMAL <100 mg/dL PREDIABETES 101-126 mg/dL DIABETES 126 mg/dL or higher PROTEIN, TOTAL Date Value Ref Range Status 08/22/2022 7.0 6.3 - 8.2 GM/DL Final 01/25/2022 6.2 Final Comment: Reference range: 6.0 to 8.5 Unit: g/dL 01/25/2022 6.8 6.3 - 8.2 GM/DL Final Albumin Date Value Ref Range Status 08/22/2022 4.1 3.5 - 5.0 G/dl Final 04/28/2022 3.9 3.5 - 5.0 G/dl Final 01/25/2022 3.5 Final Comment: Reference range: 2.9 to 4.4 Unit: g/dL 01/25/2022 3.9 3.5 - 5.0 G/dl Final AST Date Value Ref Range Status 08/22/2022 20 15 - 41 IU/L Final 01/25/2022 28 15 - 41 IU/L Final 05/19/2021 21 15 - 41 IU/L Final ALT Date Value Ref Range Status 08/22/2022 15 14 - 54 IU/L Final 01/25/2022 31 14 - 54 IU/L Final 05/19/2021 21 14 - 54 IU/L Final BILIRUBIN, TOTAL Date Value Ref Range Status 08/22/2022 1.3 (H) 0.2 - 1.2 MG/DL Final CALCIUM Date Value Ref Range Status 08/22/2022 9.3 8.4 - 10.2 MG/DL Final 04/28/2022 9.4 8.4 - 10.2 MG/DL Final 01/25/2022 9.2 8.4 - 10.2 MG/DL Final PHOSPHORUS Date Value Ref Range Status 04/28/2022 3.9 2.5 - 4.5 MG/DL Final 12/23/2021 4.1 2.5 - 4.5 MG/DL Final 08/31/2021 4.4 2.5 - 4.5 MG/DL Final MAGNESIUM Date Value Ref Range Status 08/22/2022 2.6 (H) 1.6 - 2.3 MG/DL Final 04/28/2022 2.1 1.6 - 2.3 MG/DL Final 12/23/2021 2.6 (H) 1.6 - 2.3 MG/DL Final Lab Results Component Value Date CREATURINE 54.9 08/22/2022 CREATSERUM 1.39 (H) 08/22/2022 BUN 52 (H) 08/22/2022 SODIUM 134 (L) 08/22/2022 POTASSIUM 4.4 08/22/2022 CHLORIDE 97 (L) 08/22/2022 CO2 26 08/22/2022 ROS: Constitution: No fever, no chill HEENT: No headache, no sinus issues CV: No chest pain, no palpitation Lung: No cough, No SOB Abd: No diarrhea, no constipation Neuro: No seizure, no loss of consciousness Heme: No bleeding, no bruise PHYSICAL EXAM: Wt Readings from Last 3 Encounters: 08/31/22 65.8 kg (145 lb) 05/18/22 62.6 kg (137 lb 14.4 oz) 03/10/22 66.2 kg (146 lb) Temp Readings from Last 3 Encounters: 06/14/21 98 F (36.7 C) (Temporal) 05/07/21 98.7 F (37.1 C) (Temporal) 04/28/21 97.2 F (36.2 C) BP Readings from Last 3 Encounters: 08/31/22 122/82 05/18/22 115/77 03/10/22 120/62 Pulse Readings from Last 3 Encounters: 08/31/22 77 05/18/22 81 03/10/22 69 Gen: NAD, lying in bed, conversant HEENT: Atraumatic, PERRLA, moist membrane CV: RRR, nl S1 and S2, no m/g/r Lung: CTAB, no wheezing, no crackle Abd: +BS, nontender, no distended Ext: No rash, no clubbing, no cyanosis. No edema. Neuro: CNII-XII grossly intact, 5/5 strength, normal tone Skin: Warm and dry documented in this encounter [facility] 08-17-2022 Note HNO ID: [id number] Author: Jan Santana II, TERRI Service: ? Author Type: FINISH OPENER Type: Progress Notes Filed: 08/17/2022 1:35 PM Note Text: Assessment and Plan H11.32 Subconjunctival hemorrhage of left eye (primary encounter diagnosis) Comment: Discussed self-limiting nature of problem in absence of underlying system complications such as hypertension, diabetes, and use of blood thinners. Patient uses blood thinners. Patient reports all stable. Patient will monitor for slow resolution. Instruct patient to immediately report any change in condition outside of expected and discussed symptoms. I have confirmed and edited as necessary the relevant ophthalmic history, ROS, and the neuro exam findings as obtained by others. I have seen and examined Ruth Donato. I have discussed the case and the management of this patient's care with the Resident/Fellow, if applicable. I also have reviewed and agree with the assessment and plan as stated above and agree with all of its relevant components. Jan Santana II, TERRI [facility] 08-17-2022 Instructions Jan Santana II, OD - 08/17/2022 1:35 PM EST Assessment and Plan H11.32 Subconjunctival hemorrhage of left eye (primary encounter diagnosis) Comment: Discussed self-limiting nature of problem in absence of underlying system complications such as hypertension, diabetes, and use of blood thinners. Patient uses blood thinners. Patient reports all stable. Patient will monitor for slow resolution. Instruct patient to immediately report any change in condition outside of expected and discussed symptoms. I have confirmed and edited as necessary the relevant ophthalmic history, ROS, and the neuro exam findings as obtained by others. I have seen and examined Ruth Donato. I have discussed the case and the management of this patient's care with the Resident/Fellow, if applicable. I also have reviewed and agree with the assessment and plan as stated above and agree with all of its relevant components. Jan Santana II, TERRI documented in this encounter [facility] 08-17-2022 History of Present illness Narrative Assessment and Plan H11.32 Subconjunctival hemorrhage of left eye (primary encounter diagnosis) Comment: Discussed self-limiting nature of problem in absence of underlying system complications such as hypertension, diabetes, and use of blood thinners. Patient uses blood thinners. Patient reports all stable. Patient will monitor for slow resolution. Instruct patient to immediately report any change in condition outside of expected and discussed symptoms. I have confirmed and edited as necessary the relevant ophthalmic history, ROS, and the neuro exam findings as obtained by others. I have seen and examined Ruth Donato. I have discussed the case and the management of this patient's care with the Resident/Fellow, if applicable. I also have reviewed and agree with the assessment and plan as stated above and agree with all of its relevant components. Jan Santana II, OD documented in this encounter [facility] 07-19-2022 History of Present illness Narrative Patient presents for COVID booster. Denies any problems at this time. Tolerated injection well. Martha Smith LPN documented in this encounter [facility] 07-01-2022 History of Present illness Narrative Chief Complaint Patient presents with: 6 Month Exam HPI Ruth Donato is a 81 year old female who presents here today for 6 month follow up. Has an advanced directive. Scheduled next week to get both flu vaccine and Covid booster. Denies any bowel, Gi, or urinary issues. Pt was referred to Urology by Kari Katz, no appt scheduled as of this time, looks like [facility] have tried to call her or contact her via Venuemob. Taking Prilosec 40 mg daily prn for GERD sx. Hx of small bowel obstruction in 2020. 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 CKD: Stage 3a; follows with Qa Reviewer Ivett Mchugh at [facility]. CVA: Is on Persantine 7.5 mg twice a day. Asthma: Is on Symbicort, Albuterol for nebulizer as needed, Albuterol inhaler prn and Singulair 10 mg daily. Hx of hysterectomy and bilateral mastectomy. HTN & CHF: Taking Aldactone 25 mg BID and Losartan 25 mg daily. Is taking Farxiga and Demadex. Following with Wood Flooring Specialist at [facility] Dr. Benites. Checking BP at home. Denies any chest pains, dizziness, or SOB. 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 Taking Prednisone 2.5 mg prn and uloric 40 mg daily. Following with adiel Pandya. Saw Kari Katz last month for hospital follow up due to Cellulitis. She is following with wound center for her right leg; this is improving Past medical history, appointments, medications, allergies reviewed. Previous Medical History PAST MEDICAL HISTORY Diagnosis Date Asthma CKD (chronic kidney disease) stage 3, GFR 30-59 ml/min (HCC) Congestive heart failure, unspecified 2002 Cardiology Geovanna Benites, [facility] Diverticulosis of sigmoid External hemorrhoids without mention of complication Family history of malignant neoplasm of gastrointestinal tract Gastric polyps Gout Hiatal hernia History of breast cancer History of skin cancer History of uterine cancer cervical Internal hemorrhoids without mention of complication Iron deficiency anemia Kidney disease Osteopenia Restrictive cardiomyopathy (HCC) TIA (transient ischemic attack) right eye vision changes, carotid US reported as NL Unspecified essential hypertension since age 28 Previous Surgical History PAST SURGICAL HISTORY Procedure Laterality Date APPENDECTOMY CARDIAC CATH X--3 CATARACT EXT; EYEONICS IOL SYS CHOLECYSTECTOMY 1983 COLONOSCOPY FLX DX W/COLLJ SPEC WHEN PFRMD [facility] 2007 Colonoscopy COLONOSCOPY FLX DX W/COLLJ SPEC WHEN PFRMD 06/23/11 COLONOSCOPY FLX DX W/COLLJ SPEC WHEN PFRMD 06/08/16 Colonoscopy (MAC) COLONOSCOPY FLX DX W/COLLJ SPEC WHEN PFRMD 07/15/2019 DILATION & CURETTAGE DX&/THER NONOBSTETRIC five Dilation & curettage DXA BONE DENSITY, AXIAL MAST RAD W/PECTORAL MUSCLES AXILLARY LYMPH NODES 1978 double OOPHORECTOMY PARTIAL/TOTAL UNI/BI 1985 Oophorectomy RECONSTRUCTION ROTATOR CUFF AVULSION CHRONIC 2004 right REPAIR RECTOCELE SEPARATE PROCEDURE 1979 SMALL BOWEL 03/2015 MESENTERIC ISCHEMIA TOTAL ABDOMINAL HYSTERECT W/WO RMVL TUBE OVARY Hysterectomy, RAFIA VAGINAL HYSTERECTOMY UTERUS 250 GM/< 1968 Hysterectomy, vaginal YAG CAPSULOTOMY OD (RIGHT EYE) Right 02/28/2020 Dr. Kaminski Family History FAMILY HISTORY Problem Relation Age of Onset Cancer Mother throat, stomach, colon age 69 ? unclear primary by description Thyroid Mother Heart Father age 57 Hypertension Father Stroke Paternal Grandfather Stroke Paternal Grandmother Diabetes Brother Coronary Artery Disease Maternal Grandfather Cancer Maternal Grandmother pancreatic Patient Allergies ALLERGIES Allergen Reactions Benadryl [Diphenhyd* Shortness of Breath short of breath Krystexxa [Peglotic* Other: See Comments Stopped due to elevated uric acid Sulfur Dioxide Other: See Comments headache Talwin [Pentazocine* Anaphylaxis Valium [Diazepam] Other: See Comments Seizure Advair Diskus [Flut* Mental Status Change Patient states she gets irritable and agitated but tolerates symbicort Penicillins Rash Sulfa (Sulfonamide * Rash Adhesive Tape (Xiomara* Contraindication-Medical Surgical No Bp Or Venipunctu* Current Medications Current Outpatient Medications on File Prior to Visit Medication Sig FARXIGA 10 mg tablet colchicine 0.6 mg tablet Take 2 tabs by mouth then take 1 tab 1 hour later. nitrofurantoin macrocrystal (MACRODANTIN) 100 mg capsule Take by mouth. albuterol (PROVENTIL) 2.5 mg /3 mL (0.083 %) nebulizer solution Use 3 mL via nebulizer every 6 hours as needed for wheezing/shortness of breath for up to 90 doses. Use over 5-15minutes. clopidogrel (PLAVIX) 75 mg tablet ikadjkxf-nwlqcnvbg-aoyxdnuiprbzsm (CORTISPORIN) 3.5-10,000-1 mg/mL-unit/mL-% otic suspension Use 3 Drops in the right ear four times daily. (Patient not taking: Reported on 04/29/2022) aspirin, enteric coated (ASPIRIN, ENTERIC COATED) 81 mg EC tablet Take 1 tablet by mouth once daily. albuterol HFA (VENTOLIN HFA) 90 mcg/actuation inhaler Inhale 2 Puffs as instructed every 4 hours as needed for wheezing/shortness of breath. ProAir RespiClick 90 mcg/actuation breath activated (albuterol sulfate) Inhale 2 Puffs as instructed every 4 hours as needed. predniSONE (DELTASONE) 5 mg tablet Take 2.5 mg by mouth once daily. From [facility]. (Patient not taking: Reported on 06/11/2022) montelukast (SINGULAIR) 10 mg tablet Take 1 tablet by mouth daily at bedtime. budesonide-formoterol (SYMBICORT) 160-4.5 mcg/actuation inhaler Inhale 2 Puffs as instructed twice daily. omeprazole (PRILOSEC) 40 mg capsule Take 1 capsule by mouth once daily. febuxostat (ULORIC) 40 mg tab Take 1 tablet by mouth once daily. spironolactone (ALDACTONE) 25 mg tablet Take 1 tablet by mouth once daily. losartan (COZAAR) 25 mg tablet Take 1 tablet by mouth once daily. torsemide (DEMADEX) 10 mg tablet Take 10 mg by mouth once daily. dipyridamole(PERSANTINE 75 MG TAB) Take one(1) tablet two(2) times daily. (Patient not taking: Take one(1) tablet two(2) times daily. ) No current facility-administered medications on file prior to visit. Social History Social History Tobacco Use Smoking status: Never Smokeless tobacco: Never Vaping Use Vaping Use: Never used Substance Use Topics Alcohol use: No Drug use: No EXAM: There were no vitals taken for this visit. General Appearance: Well appearing, alert, in no acute distress, well-hydrated, well nourished.. Ears: External ears normal, canals clear. Lungs: Lungs clear to auscultation. No wheezing, rhonchi, rales.. Heart: RRR without murmur, gallop, or rubs. No ectopy. Health Maintenance List SHINGRIX VACCINE(3 of 3) due on 09/19/2019 ADVANCE DIRECTIVE DISCUSSION Never done DEPRESSION ASSESSMENT Never done COVID-19 VACCINE(5 - Booster for Moderna series) due on 04/14/2022 INFLUENZA(1) due on 05/19/2022 DIABETES SCREEN due on 05/03/2025 DTAP,TDAP,TD(2 - Td or Tdap) due on 07/24/2030 SPIROMETRY Completed PNEUMOCOCCAL: 65+ Completed BONE DENSITY Addressed Data reviewed none ASSESSMENT/PLAN: 1. Gout with manifestations - ICD9: 274.89, ICD10: M10.9 (primary diagnosis) Stable Continue current medications. 2. Moderate persistent asthma without complication - ICD9: 493.90, ICD10: J45.40 Moderate persistent Asthma stable - Continue current meds - MONTELUKAST 10 MG TABLET - BUDESONIDE-FORMOTEROL HFA 160 MCG-4.5 MCG/ACTUATION AEROSOL INHALER 3. Stage 3b chronic kidney disease (HCC) - ICD9: 585.3, ICD10: N18.32 Follow with Naphrology 4. Hypertensive heart disease with heart failure and stage 3 chronic kidney disease, unspecified heart failure type, unspecified whether stage 3a or 3b CKD (HCC) - ICD9: 404.91, 585.3, ICD10: I13.0, N18.30 - good control - Continue current medication(s) - Recommended regular aerobic exercise. - Recommend home blood pressure monitoring, to bring results in on next visit - Goal of BP <140/90 Continue current medications. 5. Cellulitis of skin - ICD9: 682.9, ICD10: L03.90 Improving; follow with Wound Center Follow up in 6 months I agree with the Chief Complaint, ROS, and Past Histories independently gathered by the clinical academic support director and the remaining scribed note accurately describes my personal service to the patient. Medical Decision Making: Problems: Moderate: 2+ stable chronic illnesses Risk: Moderate: Drug management Medical Decision Making Level: 4 - Moderate Christopher Sandoval MD The documentation for this note was completed by Dina Green Ma acting as scribe for Christopher Sandoval MD. July 01, 2022 10:31 AM. Dina Green Ma documented in this encounter [facility] 06-15-2022 Miscellaneous Notes The following approved medication requests have been transmitted electronically. Requested Prescriptions Signed Prescriptions Disp Refills fluconazole (DIFLUCAN) 150 mg tablet 2 tablet 0 Sig: Take 1 tablet by mouth one time only for 1 dose. Repeat in 3 days as needed. Kari Katz APRN.CNP Last Rx: 06/01/22 #2 w/0. See message. Willing to Rx this? Imani Florez Ma documented in this encounter [facility] 06-11-2022 History of Present illness Narrative Patient presents with: Trauma: Right lower leg and foot swollen x 1 week HPI: Right leg/foot swelling: Location: right foot great toe MTP and lateral foot bone Duration: swelled 1 week Pruritis/Pain: painful Change: increasing swelling and pain Drainage/blister/pustule/ulcerati on: red, swollen, tender Treatment: tylenol for feverish last night (99). Completed levaquin from right leg cellulitis (ED 05/24/22, saw wound care for leg wound 4 days ago) Farxiga started this week; she is urinating more and lost 2#. MEDICATIONS: FARXIGA 10 mg tablet levoFLOXacin (LEVAQUIN) 500 mg tablet Take 1 tablet by mouth once daily for 10 days. mupirocin (BACTROBAN) 2 % cream Apply 1 application to affected area three times daily for 10 days. Location; Right [place] nitrofurantoin macrocrystal (MACRODANTIN) 100 mg capsule Take by mouth. albuterol (PROVENTIL) 2.5 mg /3 mL (0.083 %) nebulizer solution Use 3 mL via nebulizer every 6 hours as needed for wheezing/shortness of breath for up to 90 doses. Use over 5-15minutes. clopidogrel (PLAVIX) 75 mg tablet aspirin, enteric coated (ASPIRIN, ENTERIC COATED) 81 mg EC tablet Take 1 tablet by mouth once daily. albuterol HFA (VENTOLIN HFA) 90 mcg/actuation inhaler Inhale 2 Puffs as instructed every 4 hours as needed for wheezing/shortness of breath. ProAir RespiClick 90 mcg/actuation breath activated (albuterol sulfate) Inhale 2 Puffs as instructed every 4 hours as needed. montelukast (SINGULAIR) 10 mg tablet Take 1 tablet by mouth daily at bedtime. budesonide-formoterol (SYMBICORT) 160-4.5 mcg/actuation inhaler Inhale 2 Puffs as instructed twice daily. omeprazole (PRILOSEC) 40 mg capsule Take 1 capsule by mouth once daily. febuxostat (ULORIC) 40 mg tab Take 1 tablet by mouth once daily. spironolactone (ALDACTONE) 25 mg tablet Take 1 tablet by mouth once daily. losartan (COZAAR) 25 mg tablet Take 1 tablet by mouth once daily. torsemide (DEMADEX) 10 mg tablet Take 10 mg by mouth once daily. kamkerxn-pplddpgzr-cedoinkcsqjcgk (CORTISPORIN) 3.5-10,000-1 mg/mL-unit/mL-% otic suspension Use 3 Drops in the right ear four times daily. (Patient not taking: Reported on 04/29/2022) predniSONE (DELTASONE) 5 mg tablet Take 2.5 mg by mouth once daily. From [facility]. (Patient not taking: Reported on 06/11/2022) dipyridamole(PERSANTINE 75 MG TAB) Take one(1) tablet two(2) times daily. (Patient not taking: Take one(1) tablet two(2) times daily. ) ALLERGIES: ALLERGIES Allergen Reactions Benadryl [Diphenhyd* Shortness of Breath short of breath Krystexxa [Peglotic* Other: See Comments Stopped due to elevated uric acid Sulfur Dioxide Other: See Comments headache Talwin [Pentazocine* Anaphylaxis Valium [Diazepam] Other: See Comments Seizure Advair Diskus [Flut* Mental Status Change Patient states she gets irritable and agitated but tolerates symbicort Penicillins Rash Sulfa (Sulfonamide * Rash Adhesive Tape (Xiomara* Contraindication-Medical Surgical No Bp Or Venipunctu* VITALS: BP 130/60 Pulse 85 Temp 36.5 C (97.7 F) Resp 22 Wt 63.8 kg (140 lb 9.6 oz) SpO2 98% BMI 26.57 kg/m PE: Pleasant, in no acute distress. Leg: right. 4cm triangular ulcer mid lower balbuena. Mild erythema and edema extending distally (improving per patient). Lower leg is 1/10 tender to palpation. FOOT: right. Mild erythema and edema. Tender 1st MTP and proximal 5th metatarsal. Pain with 1st toe ROM, other toes non-tender to palpation and ROM. Mid foot non-tender. ASSESSMENT/PLAN: 1. Foot pain, right - ICD9: 729.5, ICD10: M79.671 (primary diagnosis) 2. History of gout - ICD9: V12.29, ICD10: Z87.39 Suspect gout flare. Possibly precipitated by diuresis this week. Lab and xray are not available until Monday. Treatment is complicated by heart failure and CKD. - COLCHICINE 0.6 MG TABLET - 3 tablet treatment. She may need steroid added on (may increase fluid retention and she worries it will delay healing of her leg ulcer). Proceed to the ER with fever or increasing swelling/pain this weekend. Otherwise follow up with primary care next week. Lasha Sylvester MD documented in this encounter [facility] 06-07-2022 Evaluation + Plan note Associated Problem(s): Takotsubo cardiomyopathy Resolved. Will reassess with an echo today. [facility] 06-07-2022 Evaluation + Plan note Associated Problem(s): Hypertension, essential Controlled on medical therapy. [facility] 06-07-2022 Miscellaneous Notes Associated Problem(s): Takotsubo cardiomyopathy Resolved. Will reassess with an echo today. Associated Problem(s): Hypertension, essential Controlled on medical therapy. Associated Problem(s): Acute on chronic heart failure with preserved ejection fraction (HFpEF) (HCC) Patient with acute on chronic HFpEF. She does have some dyspnea and exertion. Her target weight is 132 pounds. She was under 134 pounds at home. She does have some mild lower extremity edema. I am going to continue her current medical regimen. She will start Farxiga. We will see how she does over the next week. If she has significant improvement of her shortness of breath or her weight is down 132 pounds we will continue the current medical regimen. If she continues having shortness of breath and her weight is up we will have her double her Demadex until her weight decreases 132 pounds. documented in this encounter [facility] 06-07-2022 Evaluation + Plan note Associated Problem(s): Acute on chronic heart failure with preserved ejection fraction (HFpEF) (HCC) Patient with acute on chronic HFpEF. She does have some dyspnea and exertion. Her target weight is 132 pounds. She was under 134 pounds at home. She does have some mild lower extremity edema. I am going to continue her current medical regimen. She will start Farxiga. We will see how she does over the next week. If she has significant improvement of her shortness of breath or her weight is down 132 pounds we will continue the current medical regimen. If she continues having shortness of breath and her weight is up we will have her double her Demadex until her weight decreases 132 pounds. [facility] 06-07-2022 Instructions Robina Mera RN - 06/07/2022 2:07 PM EDT START Farxiga and see how you do. Check in with us on Monday next week. Continue to check your weights daily and we will see how you feel next week. documented in this encounter [facility] 06-07-2022 History of Present illness Narrative Interventional Cardiology Clinic Follow-up Heart & Vascular [facility] 06/07/2022 Geovanna Benites MD [address] [facility] [address] [facility] [facility] [id number] Patient: Ruth Donato Date of : 1940 (81 y.o.) PCP: Christopher Sandoval MD Assessment & Plan Acute on chronic heart failure with preserved ejection fraction (HFpEF) ([facility]) Patient with acute on chronic HFpEF. She does have some dyspnea and exertion. Her target weight is 132 pounds. She was under 134 pounds at home. She does have some mild lower extremity edema. I am going to continue her current medical regimen. She will start Farxiga. We will see how she does over the next week. If she has significant improvement of her shortness of breath or her weight is down 132 pounds we will continue the current medical regimen. If she continues having shortness of breath and her weight is up we will have her double her Demadex until her weight decreases 132 pounds. Hypertension, essential Controlled on medical therapy. Takotsubo cardiomyopathy Resolved. Will reassess with an echo today. Follow-up: Return in about 6 months (around 12/05/2022). Chief Complaint: 6-month follow-up Subjective History of Present Illness: Ruth Donato is a 81 y.o. female with a history of Takotsubo cardiomyopathy, hypertension, HFpEF, renal insufficiency and history of pericardial effusion. Patient was in the hospital in March due to a small bowel obstruction. She also had COVID several weeks ago. Patient does complain of dyspnea on exertion. She denies orthopnea or PND. She does have some mild lower extremity edema. Her weight is 134 pounds. Her target weight is 132 pounds. She denies any palpitations, lightheadedness or syncope. Her navigation officer recommended starting Farxiga. She has not started it yet. [id number] CAD 2008 carotid duplex-mild bilateral 03/01/2021-EF 61%. No valvular abnormalities. Objective Imaging: I independently reviewed the EKG and agree with the interpretation(s) with the following comments. 02/23/[id number] Rhythm WITHIN NORMAL LIMITS ECG 12 Lead Final Result by Geovanna Benites MD (03/15/2022 1346) Echocardiogram complete (Results Pending) Review of Systems: Review of systems performed by the medical supply technician, personally reviewed and viewable in the current patient encounter. Pertinent positive and negative findings detailed in HPI. HOME Medications: Current Outpatient Medications on File Prior to Visit Medication Sig albuterol (PROVENTIL) 2.5 mg/0.5 mL Nebu Take 2.5 mg by nebulization . albuterol 90 mcg/actuation inhaler Inhale 2 puffs as needed for wheezing . aspirin 81 MG EC tablet Take 81 mg by mouth daily . clopidogreL (Plavix) 75 mg tablet Take 1 (one) tablet (75 mg total) by mouth daily . dapagliflozin (Farxiga) 10 mg tablet Take 1 (one) tablet (10 mg total) by mouth every morning . febuxostat (ULORIC) 40 mg tablet Take 40 mg by mouth daily . losartan (Cozaar) 25 MG tablet Take 1 (one) tablet (25 mg total) by mouth daily . montelukast (SINGULAIR) 10 mg tablet Take 10 mg by mouth nightly . nitrofurantoin, macrocrystal-monohydrate, (MACROBID) 100 MG capsule Take 100 mg by mouth as needed . omeprazole (PRILOSEC) 40 MG capsule Take 40 mg by mouth as needed . spironolactone (ALDACTONE) 25 MG tablet Take 1 (one) tablet (25 mg total) by mouth daily . Symbicort 160-4.5 mcg/actuation inhaler Inhale 2 puffs 2 (two) times a day . torsemide (DEMADEX) 10 MG tablet Take 1-2 tablets daily as needed for swelling or weight gain. . (Patient taking differently: Take 1 (one) tablet (10 mg total) by mouth daily Take 1-2 tablets daily as needed for swelling or weight gain. .) No current facility-administered medications on file prior to visit. Vital Signs: BP 114/65 (BP Location: Right arm, Patient Position: Sitting) Pulse 80 Ht 5' 1 Wt 64.4 kg (142 lb) BMI 26.83 kg/m Physical Exam Neck: Vascular: No carotid bruit. Cardiovascular: Rate and Rhythm: Normal rate and regular rhythm. Heart sounds: No murmur heard. Pulmonary: Effort: Pulmonary effort is normal. Breath sounds: Rales present. No wheezing. Comments: Bibasilar rales. Increased end expiratory phase. Musculoskeletal: Right lower leg: Edema present. Left lower leg: Edema present. Comments: Mild lower extremity edema Labs: I personally reviewed and interpreted the labs documented below. No results found for: CHOL, LDLCALC, LDLDIRECT, TRIG, HDL Creatinine clearance cannot be calculated (Patient's most recent lab result is older than the maximum 14 days allowed.) Construction Management Assistant: No documented in this encounter [facility] 06-03-2022 Instructions Kari Katz APRN.CNP - 06/03/2022 11:36 AM EDT 1.) Continue to take antibiotic as prescribed. 2.) Keep wound clean and dry. Continue to apply Bactroban cream and apply dressing as needed. 3.) Red flag symptoms, increased redness, swelling, or fever go to ER. 4.) Keep appointment with Wound Specialty on Monday. 5.) Follow up as needed. documented in this encounter [facility] 06-03-2022 History of Present illness Narrative This is a 81 year old female who presents today with: Patient presents with: Follow Up: right leg cellulits HISTORY OF PRESENT ILLNESS: Ruth Donato is a 81 year old female. Patient presents with: Follow Up: right leg cellulits Here in the office for skin check. Was seen by myself 06/01/22, started on Levaquin and Bactroban cream due to wound culture. Has appt wound center on Monday. Has been doung wound care at home without difficulty. No fever or chills. PAST MEDICAL HISTORY: PAST MEDICAL HISTORY Diagnosis Date Asthma CKD (chronic kidney disease) stage 3, GFR 30-59 ml/min (HCC) [facility]est[facility], unspecified [facility] of sigmoid External hemorrhoids without mention of complication Family history of malignant neoplasm of gastrointestinal tract Gastric polyps Gout Hiatal hernia History of breast cancer History of skin cancer History of uterine cancer cervical Internal hemorrhoids without mention of complication Iron deficiency anemia Kidney disease Osteopenia Restrictive cardiomyopathy (HCC) TIA (transient ischemic attack) right eye vision changes, carotid US reported as NL Unspecified essential hypertension since age 28 PAST SURGICAL HISTORY Procedure Laterality Date APPENDECTOMY CARDIAC CATH X--3 CATARACT EXT; EYEONICS IOL SYS CHOLECYSTECTOMY 1983 COLONOSCOPY FLX DX W/COLLJ SPEC WHEN PFRMD [facility] 2007 Colonoscopy COLONOSCOPY FLX DX W/COLLJ SPEC WHEN PFRMD 06/23/11 COLONOSCOPY FLX DX W/COLLJ SPEC WHEN PFRMD 06/08/16 Colonoscopy (MAC) COLONOSCOPY FLX DX W/COLLJ SPEC WHEN PFRMD 07/15/2019 DILATION & CURETTAGE DX&/THER NONOBSTETRIC five Dilation & curettage DXA BONE DENSITY, AXIAL MAST RAD W/PECTORAL MUSCLES AXILLARY LYMPH NODES 1978 double OOPHORECTOMY PARTIAL/TOTAL UNI/BI 1985 Oophorectomy RECONSTRUCTION ROTATOR CUFF AVULSION CHRONIC 2003 right REPAIR RECTOCELE SEPARATE PROCEDURE 1979 SMALL BOWEL 03/2015 MESENTERIC ISCHEMIA TOTAL ABDOMINAL HYSTERECT W/WO RMVL TUBE OVARY Hysterectomy, RAFIA VAGINAL HYSTERECTOMY UTERUS 250 GM/< 1968 Hysterectomy, vaginal YAG CAPSULOTOMY OD (RIGHT EYE) Right 02/28/2020 Dr. Kaminski ALLERGIES Benadryl [Diphenhydramine Hcl], Krystexxa [Pegloticase], Sulfur Dioxide, Talwin [Pentazocine Lactate], Valium [Diazepam], Advair Diskus [Fluticasone Propion-Salmeterol], Penicillins, Sulfa (Sulfonamide Antibiotics), Adhesive Tape (Rosins), and No Bp Or Venipunctures Left Arm [Other] MEDICATIONS Current Outpatient Medications Medication Sig levoFLOXacin (LEVAQUIN) 500 mg tablet Take 1 tablet by mouth once daily for 10 days. mupirocin (BACTROBAN) 2 % cream Apply 1 application to affected area three times daily for 10 days. Location; Right [place] nitrofurantoin macrocrystal (MACRODANTIN) 100 mg capsule Take by mouth. albuterol (PROVENTIL) 2.5 mg /3 mL (0.083 %) nebulizer solution Use 3 mL via nebulizer every 6 hours as needed for wheezing/shortness of breath for up to 90 doses. Use over 5-15minutes. clopidogrel (PLAVIX) 75 mg tablet aspirin, enteric coated (ASPIRIN, ENTERIC COATED) 81 mg EC tablet Take 1 tablet by mouth once daily. albuterol HFA (VENTOLIN HFA) 90 mcg/actuation inhaler Inhale 2 Puffs as instructed every 4 hours as needed for wheezing/shortness of breath. ProAir RespiClick 90 mcg/actuation breath activated (albuterol sulfate) Inhale 2 Puffs as instructed every 4 hours as needed. predniSONE (DELTASONE) 5 mg tablet Take 2.5 mg by mouth once daily. From [facility]. montelukast (SINGULAIR) 10 mg tablet Take 1 tablet by mouth daily at bedtime. budesonide-formoterol (SYMBICORT) 160-4.5 mcg/actuation inhaler Inhale 2 Puffs as instructed twice daily. omeprazole (PRILOSEC) 40 mg capsule Take 1 capsule by mouth once daily. febuxostat (ULORIC) 40 mg tab Take 1 tablet by mouth once daily. spironolactone (ALDACTONE) 25 mg tablet Take 1 tablet by mouth once daily. losartan (COZAAR) 25 mg tablet Take 1 tablet by mouth once daily. torsemide (DEMADEX) 10 mg tablet Take 10 mg by mouth once daily. mjtowwit-vhggmtqmc-tbzezvimihrryh (CORTISPORIN) 3.5-10,000-1 mg/mL-unit/mL-% otic suspension Use 3 Drops in the right ear four times daily. (Patient not taking: Reported on 04/29/2022) dipyridamole(PERSANTINE 75 MG TAB) Take one(1) tablet two(2) times daily. (Patient not taking: Take one(1) tablet two(2) times daily. ) No current facility-administered medications for this visit. FAMILY HISTORY Problem Relation Age of Onset Cancer Mother throat, stomach, colon age 69 ? unclear primary by description Thyroid Mother Heart Father age 57 Hypertension Father Stroke Paternal Grandfather Stroke Paternal Grandmother Diabetes Brother Coronary Artery Disease Maternal Grandfather Cancer Maternal Grandmother pancreatic Social History Tobacco Use Smoking status: Never Smokeless tobacco: Never Vaping Use Vaping Use: Never used Substance Use Topics Alcohol use: No Drug use: No REVIEW OF SYSTEMS GENERAL: No weight loss, malaise or fevers/chills HEENT: Negative for frequent or significant headaches, No changes in hearing or vision. NECK: Negative for lumps, goiter, pain and significant neck swelling RESPIRATORY: Negative for cough, hemoptysis, wheezing, dyspnea or shortness of breath CARDIOVASCULAR: Negative for chest pain, leg swelling, orthopnea, or palpitations GI: No nausea, vomiting, or diarrhea/constipation. No hematochezia/melena. No heartburn or reflux symptoms. : No history of dysuria, frequency or incontinence MUSCULOSKELETAL: Negative for joint pain or swelling. SKIN: + Wound Right [place] ENDOCRINE: Negative for cold or heat intolerance, polyuria, polydipsia and goiter NEURO: No history of headaches, syncope, paralysis, seizures or tremors MOOD: Negative for depression, anxiety, or suicidal ideation. EXAM: BP 118/56 Pulse 86 Resp 16 Wt 64.4 kg (142 lb) SpO2 96% BMI 26.83 kg/m PHYSICAL EXAM: General Appearance: Well appearing, alert, in no acute distress, well-hydrated, well nourished. Skin: 6x5 cm healing ulceration right balbuena/ much improved since last visit. Center is drying out, dark brown, no seeping. Mild erythema noted to surrounding tissue but no increased warmth or swelling. Head: Normocephalic, no masses, lesions, tenderness or abnormalities. Eyes: Anicteric sclera. Pupils are equally round and reactive to light. Extraocular movements are intact. Extremities: No deformities, edema, skin discoloration, clubbing or cyanosis. Good capillary refill. Peripheral Pulses: Normal, Capillary refill <2secs, strong peripheral pulses, Pulses palpable. Neurologic: Gait normal. Sensation grossly intact. ASSESSMENT/PLAN: 1. Cellulitis of skin - ICD9: 682.9, ICD10: L03.90 - Continue to take antibiotics as prescribed. - Instructed to keep wound clean and dry. - Keep scheduled appointment with wound center next week. - Red flag symptoms given to patient, she verbalizes understanding when to seek care. Follow-up as needed or sooner if symptoms get worse or do not improve. Discussed treatment plan and patient voices understanding. Patient's questions answered appropriately. Medications and potential side effects were discussed and patient voices understanding. Kari Katz APRN.ONLINE MERCHANDISING SPECIALIST This note was partially generated using Emergent Views recognition system. Note was reviewed for accuracy. There may be minor misspellings or grammar miscues with Fjuul voice recognition. documented in this encounter [facility] 06-01-2022 Instructions Kari Katz APRN.CNP - 06/01/2022 11:32 AM EDT 1.) Start Levaquin, take with food. 2.) Keep wound clean and dry, apply prescription antibiotic cream to wound. Keep dressing clean and dry. 3.) May use Diflucan if you develop vaginal yeast infection symptoms. 4.) Red flag symptoms go to Er. 5.) Keep up coming appointment with wound center. 6.) Follow up in 2 days for wound check if needed. documented in this encounter [facility] 06-01-2022 History of Present illness Narrative This is a 81 year old female who presents today with: Patient presents with: Follow Up: [facility] HISTORY OF PRESENT ILLNESS: Ruth Donato is a 81 year old female. Patient presents with: Follow Up: [facility] HOSPITAL/ER FOLLOW UP: Reason for visit: Cellulitis Which facility: [facility] Date of visit: 05/27/2022 Diagnosis: Cellulitus Testing done: Wound culture sent, CBC within normal limits, BMP shows a creatinine of 1.2 which is consistent with prior results. Treatment given: Has been to ER three times for right leg wound. Initially given Clindamycin but had to return to worsening symptoms. Given IV lavaquin and RX for Keflex. Current symptoms: Wound is seeping and tender. No fever or chills. Has been applying bacitracin daily. Has appointment next Monday with Wound Center. PAST MEDICAL HISTORY: PAST MEDICAL HISTORY Diagnosis Date Asthma CKD (chronic kidney disease) stage 3, GFR 30-59 ml/min (HCC) [facility]est[facility], unspecified [facility]verticulosis of sigmoid External hemorrhoids without mention of complication Family history of malignant neoplasm of gastrointestinal tract Gastric polyps Gout Hiatal hernia History of breast cancer History of skin cancer History of uterine cancer cervical Internal hemorrhoids without mention of complication Iron deficiency anemia Kidney disease Osteopenia Restrictive cardiomyopathy (HCC) TIA (transient ischemic attack) right eye vision changes, carotid US reported as NL Unspecified essential hypertension since age 28 PAST SURGICAL HISTORY Procedure Laterality Date APPENDECTOMY CARDIAC CATH X--3 CATARACT EXT; EYEONICS IOL SYS CHOLECYSTECTOMY 1983 COLONOSCOPY FLX DX W/COLLJ SPEC WHEN PFRMD [facility] 2007 Colonoscopy COLONOSCOPY FLX DX W/COLLJ SPEC WHEN PFRMD 06/23/11 COLONOSCOPY FLX DX W/COLLJ SPEC WHEN PFRMD 06/08/16 Colonoscopy (MAC) COLONOSCOPY FLX DX W/COLLJ SPEC WHEN PFRMD 07/15/2019 DILATION & CURETTAGE DX&/THER NONOBSTETRIC five Dilation & curettage DXA BONE DENSITY, AXIAL MAST RAD W/PECTORAL MUSCLES AXILLARY LYMPH NODES 1978 double OOPHORECTOMY PARTIAL/TOTAL UNI/BI 1985 Oophorectomy RECONSTRUCTION ROTATOR CUFF AVULSION CHRONIC 2003 right REPAIR RECTOCELE SEPARATE PROCEDURE 1979 SMALL BOWEL 03/2015 MESENTERIC ISCHEMIA TOTAL ABDOMINAL HYSTERECT W/WO RMVL TUBE OVARY Hysterectomy, RAFIA VAGINAL HYSTERECTOMY UTERUS 250 GM/< 1968 Hysterectomy, vaginal YAG CAPSULOTOMY OD (RIGHT EYE) Right 02/28/2020 Dr. Kaminski ALLERGIES Benadryl [Diphenhydramine Hcl], Krystexxa [Pegloticase], Sulfur Dioxide, Talwin [Pentazocine Lactate], Valium [Diazepam], Advair Diskus [Fluticasone Propion-Salmeterol], Penicillins, Sulfa (Sulfonamide Antibiotics), Adhesive Tape (Rosins), and No Bp Or Venipunctures Left Arm [Other] MEDICATIONS Current Outpatient Medications Medication Sig nitrofurantoin macrocrystal (MACRODANTIN) 100 mg capsule Take by mouth. albuterol (PROVENTIL) 2.5 mg /3 mL (0.083 %) nebulizer solution Use 3 mL via nebulizer every 6 hours as needed for wheezing/shortness of breath for up to 90 doses. Use over 5-15minutes. clopidogrel (PLAVIX) 75 mg tablet dszrhomx-eesegpcql-agdbowrqpcdopy (CORTISPORIN) 3.5-10,000-1 mg/mL-unit/mL-% otic suspension Use 3 Drops in the right ear four times daily. (Patient not taking: Reported on 04/29/2022) aspirin, enteric coated (ASPIRIN, ENTERIC COATED) 81 mg EC tablet Take 1 tablet by mouth once daily. albuterol HFA (VENTOLIN HFA) 90 mcg/actuation inhaler Inhale 2 Puffs as instructed every 4 hours as needed for wheezing/shortness of breath. ProAir RespiClick 90 mcg/actuation breath activated (albuterol sulfate) Inhale 2 Puffs as instructed every 4 hours as needed. predniSONE (DELTASONE) 5 mg tablet Take 2.5 mg by mouth once daily. From [facility]. montelukast (SINGULAIR) 10 mg tablet Take 1 tablet by mouth daily at bedtime. budesonide-formoterol (SYMBICORT) 160-4.5 mcg/actuation inhaler Inhale 2 Puffs as instructed twice daily. omeprazole (PRILOSEC) 40 mg capsule Take 1 capsule by mouth once daily. febuxostat (ULORIC) 40 mg tab Take 1 tablet by mouth once daily. spironolactone (ALDACTONE) 25 mg tablet Take 1 tablet by mouth once daily. losartan (COZAAR) 25 mg tablet Take 1 tablet by mouth once daily. torsemide (DEMADEX) 10 mg tablet Take 10 mg by mouth once daily. dipyridamole(PERSANTINE 75 MG TAB) Take one(1) tablet two(2) times daily. (Patient not taking: Take one(1) tablet two(2) times daily. ) No current facility-administered medications for this visit. FAMILY HISTORY Problem Relation Age of Onset Cancer Mother throat, stomach, colon age 69 ? unclear primary by description Thyroid Mother Heart Father age 57 Hypertension Father Stroke Paternal Grandfather Stroke Paternal Grandmother Diabetes Brother Coronary Artery Disease Maternal Grandfather Cancer Maternal Grandmother pancreatic Social History Tobacco Use Smoking status: Never Smokeless tobacco: Never Vaping Use Vaping Use: Never used Substance Use Topics Alcohol use: No Drug use: No REVIEW OF SYSTEMS GENERAL: No weight loss, malaise or fevers/chills HEENT: Negative for frequent or significant headaches, No changes in hearing or vision. NECK: Negative for lumps, goiter, pain and significant neck swelling RESPIRATORY: Negative for cough, hemoptysis, wheezing, dyspnea or shortness of breath CARDIOVASCULAR: Negative for chest pain, leg swelling, orthopnea, or palpitations GI: No nausea, vomiting, or diarrhea/constipation. No hematochezia/melena. No heartburn or reflux symptoms. : No history of dysuria, frequency or incontinence MUSCULOSKELETAL: Negative for joint pain or swelling. SKIN: + Right [place] Wound ENDOCRINE: Negative for cold or heat intolerance, polyuria, polydipsia and goiter NEURO: No history of headaches, syncope, paralysis, seizures or tremors MOOD: Negative for depression, anxiety, or suicidal ideation. EXAM: BP 150/60 Pulse 84 Resp 20 Wt 64.4 kg (142 lb) SpO2 99% BMI 26.83 kg/m PHYSICAL EXAM: General Appearance: Well appearing, alert, in no acute distress, well-hydrated, well nourished. Skin: + Large ulceration noted to the right balbuena, yellow center, mild erythema and increased warmth to surrounding tissue. No streaking or crusting noted. Head: Normocephalic, no masses, lesions, tenderness or abnormalities. Lungs: Lungs clear to auscultation. No wheezing, rhonchi, rales. Heart: RRR without murmur, gallop, or rubs. No ectopy. Extremities: No deformities, edema, skin discoloration, clubbing or cyanosis. Good capillary refill. Peripheral Pulses: Normal, Capillary refill <2secs, strong peripheral pulses, Pulses palpable. Neurologic: Gait normal. Sensation grossly intact. Wound Culture: + Pseudomonas and serratia marcescens ASSESSMENT/PLAN: 1. Hospital discharge follow-up - ICD9: V67.59, ICD10: Z09 (primary diagnosis) - Has been to the hospital several times due to this wound. 2. Cellulitis of skin - ICD9: 682.9, ICD10: L03.90 - Per Wound Culture, levofloxacin is susceptible for this type of bacteria. - Start levofloxacin, apply Bactroban cream to wound. - Wound care instructions provided to patient, keep upcoming appointment with transformation specialist. - Red flag symptoms given to patient, she verbalizes understanding when to seek emergency care. - Follow-up in 2 days if needed for wound check. - LEVOFLOXACIN 500 MG TABLET - MUPIROCIN CALCIUM 2 % TOPICAL CREAM 3. Vaginal yeast infection - ICD9: 112.1, ICD10: B37.3 - May use Diflucan if needed for vaginal yeast symptoms after antibiotic use. - FLUCONAZOLE 150 MG TABLET Follow-up in 2 days or sooner as needed. Discussed treatment plan and patient voices understanding. Patient's questions answered appropriately. Medications and potential side effects were discussed and patient voices understanding. Kari Katz APRN.ONLINE MERCHANDISING SPECIALIST This note was partially generated using Fjuul voice recognition system. Note was reviewed for accuracy. There may be minor misspellings or grammar miscues with Dragon voice recognition. documented in this encounter [facility] 05-31-2022 Miscellaneous Notes Pt called and notified, verbalized understanding. Will discuss abx with Kari tomorrow at visit. Imani Florez Ma Agree. If worsening fever, redness pain or swelling back to er. PCP Team is out of the office. Routed to Doc [facility]. See ER documentation. Scan on 05/27/2022 4:23 PM by External Provider: Consultation - Emergency Medicine Patient calls to request more antibiotic for right lower leg cellulitis. Patient reports area is still swollen and red with wound still present. Today is last dose of antibiotics. Patient requesting ED follow up appointment as soon as possible. Scheduled first available tomorrow at 11:20 am with provider. Bree Ramos RN was seen at the [place] ER on 05-24-22 with cellulitis on r leg and placed on Cephalexin. She has finished the course and the culture results are in. She states that infection has not cleared and believes she needs a different antibiotic due to the culture findings. She is requesting it be sent to the [facility] pharmacy documented in this encounter [facility] 05-31-2022 Miscellaneous Notes See triage encounter. documented in this encounter [facility] 05-24-2022 History of Present illness Narrative Triage Note: Patient presented to for possible infection of right lower leg wound. Last week she scraped leg on piece of wood, and has redness and streaking. Due to lymphatic streaking - will refer to ED for evaluation and treatment. Manju Vargas APRN.CNP documented in this encounter [facility] 05-19-2022 Instructions Kari Katz APRN.CNP - 05/19/2022 10:53 AM EDT 1.) Schedule appointment for Pulmonology and spirometry testing 2.) Complete urine sample. 3.) Continue to take all medication as prescribed. 4.) Follow up pending test results or sooner as needed. documented in this encounter [facility] 05-19-2022 History of Present illness Narrative This is a 81 year old female who presents today with: Patient presents with: Follow Up: Follow up from [facility] HISTORY OF PRESENT ILLNESS: Ruth Donato is a 81 year old female. Patient presents with: Follow Up: Follow up from [facility] Here in the office for 1 month follow-up. Had hospital follow-up on 04/21/2022, developed pneumonia shortly after hospital discharge. Repeat chest x-ray was clear of any infection. [facility] on 05/[facility] for increased urine frequency and fever. Diagnosed with COVID on 05/04/22. Urinalysis came back negative for any bacterial growth but positive for blood. Had a virtual visit with myself and denied wanting any oral or IV antiviral treatment for covid. However symptoms seemed to progress and had another visit with [facility] on 05/05 where the order for monoclonal antibodies was placed. Refers she received the monoclonal antibodies. Here today refers she is feeling well. Still having some loss of voice at times but has improved. Increased SOB with exertion with wheezing. Symptoms improve with rest. History of asthma. Denies any nighttime wakening with cough or shortness of breath. Would like a referral to pulmonology if needed, symptoms usually get worse during fall months. Currently taking Symbicort, albuterol as needed, Singulair, and albuterol nebulizer as needed. No urinary symptoms. Using Macrodantin as needed after intercourse for prevention. Refers that the prep wipes seem to make her bleed when using them. PAST MEDICAL HISTORY: PAST MEDICAL HISTORY Diagnosis Date Asthma CKD (chronic kidney disease) stage 3, GFR 30-59 ml/min (HCC) Congestive heart failure, unspecified 2002 Cardiology [facility] Diverticulosis of sigmoid External hemorrhoids without mention of complication Family history of malignant neoplasm of gastrointestinal tract Gastric polyps Gout Hiatal hernia History of breast cancer History of skin cancer History of uterine cancer cervical Internal hemorrhoids without mention of complication Iron deficiency anemia Kidney disease Osteopenia Restrictive cardiomyopathy (HCC) TIA (transient ischemic attack) right eye vision changes, carotid US reported as NL Unspecified essential hypertension since age 28 PAST SURGICAL HISTORY Procedure Laterality Date APPENDECTOMY CARDIAC CATH X--3 CATARACT EXT; EYEONICS IOL SYS CHOLECYSTECTOMY 1983 COLONOSCOPY FLX DX W/COLLJ SPEC WHEN PFRMD [facility] 2007 Colonoscopy COLONOSCOPY FLX DX W/COLLJ SPEC WHEN PFRMD 06/23/11 COLONOSCOPY FLX DX W/COLLJ SPEC WHEN PFRMD 06/08/16 Colonoscopy (MAC) COLONOSCOPY FLX DX W/COLLJ SPEC WHEN PFRMD 07/15/2019 DILATION & CURETTAGE DX&/THER NONOBSTETRIC five Dilation & curettage DXA BONE DENSITY, AXIAL MAST RAD W/PECTORAL MUSCLES AXILLARY LYMPH NODES 1978 double OOPHORECTOMY PARTIAL/TOTAL UNI/BI 1985 Oophorectomy RECONSTRUCTION ROTATOR CUFF AVULSION CHRONIC 2003 right REPAIR RECTOCELE SEPARATE PROCEDURE 1979 SMALL BOWEL 03/2015 MESENTERIC ISCHEMIA TOTAL ABDOMINAL HYSTERECT W/WO RMVL TUBE OVARY Hysterectomy, RAFIA VAGINAL HYSTERECTOMY UTERUS 250 GM/< 1968 Hysterectomy, vaginal YAG CAPSULOTOMY OD (RIGHT EYE) Right 02/28/2020 Dr. Kaminski ALLERGIES Benadryl [Diphenhydramine Hcl], Krystexxa [Pegloticase], Sulfur Dioxide, Talwin [Pentazocine Lactate], Valium [Diazepam], Advair Diskus [Fluticasone Propion-Salmeterol], Penicillins, Sulfa (Sulfonamide Antibiotics), Adhesive Tape (Rosins), and No Bp Or Venipunctures Left Arm [Other] MEDICATIONS Current Outpatient Medications Medication Sig albuterol (PROVENTIL) 2.5 mg /3 mL (0.083 %) nebulizer solution Use 3 mL via nebulizer every 6 hours as needed for wheezing/shortness of breath. Use over 5-15minutes. clopidogrel (PLAVIX) 75 mg tablet pbrwhsck-mwogsskym-sluuxicnojstjc (CORTISPORIN) 3.5-10,000-1 mg/mL-unit/mL-% otic suspension Use 3 Drops in the right ear four times daily. (Patient not taking: Reported on 04/29/2022) aspirin, enteric coated (ASPIRIN, ENTERIC COATED) 81 mg EC tablet Take 1 tablet by mouth once daily. albuterol HFA (VENTOLIN HFA) 90 mcg/actuation inhaler Inhale 2 Puffs as instructed every 4 hours as needed for wheezing/shortness of breath. ProAir RespiClick 90 mcg/actuation breath activated (albuterol sulfate) Inhale 2 Puffs as instructed every 4 hours as needed. predniSONE (DELTASONE) 5 mg tablet Take 2.5 mg by mouth once daily. From [facility]. montelukast (SINGULAIR) 10 mg tablet Take 1 tablet by mouth daily at bedtime. budesonide-formoterol (SYMBICORT) 160-4.5 mcg/actuation inhaler Inhale 2 Puffs as instructed twice daily. omeprazole (PRILOSEC) 40 mg capsule Take 1 capsule by mouth once daily. febuxostat (ULORIC) 40 mg tab Take 1 tablet by mouth once daily. spironolactone (ALDACTONE) 25 mg tablet Take 1 tablet by mouth once daily. losartan (COZAAR) 25 mg tablet Take 1 tablet by mouth once daily. torsemide (DEMADEX) 10 mg tablet Take 10 mg by mouth once daily. dipyridamole(PERSANTINE 75 MG TAB) Take one(1) tablet two(2) times daily. (Patient not taking: Take one(1) tablet two(2) times daily. ) No current facility-administered medications for this visit. FAMILY HISTORY Problem Relation Age of Onset Cancer Mother throat, stomach, colon age 69 ? unclear primary by description Thyroid Mother Heart Father age 57 Hypertension Father Stroke Paternal Grandfather Stroke Paternal Grandmother Diabetes Brother Coronary Artery Disease Maternal Grandfather Cancer Maternal Grandmother pancreatic Social History Tobacco Use Smoking status: Never Smokeless tobacco: Never Vaping Use Vaping Use: Never used Substance Use Topics Alcohol use: No Drug use: No REVIEW OF SYSTEMS GENERAL: No weight loss, malaise or fevers/chills HEENT: Negative for frequent or significant headaches, No changes in hearing or vision. NECK: Negative for lumps, goiter, pain and significant neck swelling RESPIRATORY: Shortness of breath CARDIOVASCULAR: Negative for chest pain, leg swelling, orthopnea, or palpitations GI: No nausea, vomiting, or diarrhea/constipation. No hematochezia/melena. No heartburn or reflux symptoms. : No history of dysuria, frequency or incontinence MUSCULOSKELETAL: Negative for joint pain or swelling. SKIN: Negative for lesions, rash, and itching ENDOCRINE: Negative for cold or heat intolerance, polyuria, polydipsia and goiter NEURO: No history of headaches, syncope, paralysis, seizures or tremors MOOD: Negative for depression, anxiety, or suicidal ideation. EXAM: BP 110/64 Pulse 86 Resp 16 Wt 62.1 kg (137 lb) SpO2 99% BMI 25.89 kg/m PHYSICAL EXAM: General Appearance: Well appearing, alert, in no acute distress, well-hydrated, well nourished. Skin: Skin color, texture, turgor normal, no suspicious rashes or lesions. Head: Normocephalic, no masses, lesions, tenderness or abnormalities. Eyes: Anicteric sclera. Extraocular movements are intact. Neck: Supple, no adenopathy; thyroid symmetric, normal size, no bruits. Lungs: Lungs clear to auscultation. No wheezing, rhonchi, rales. Heart: RRR without murmur, gallop, or rubs. No ectopy. Peripheral Pulses: Normal, Capillary refill <2secs, strong peripheral pulses, Pulses palpable. Neurologic: Gait normal. Sensation grossly intact. ASSESSMENT/PLAN: 1. Microscopic hematuria - ICD9: 599.72, ICD10: R31.29 (primary diagnosis) - Recheck urine for blood. - Discussed with patient follow up with Urology may be needed if blood has not cleared, she is agreeable to this plan. - URINALYSIS, WITH MICROSCOPIC - CONSULT TO UROLOGY 2. Moderate persistent asthma without complication - ICD9: 493.90, ICD10: J45.40 Mild intermittent Asthma worse - Continue current medications - Schedule appointment for spirometry as well as pulmonology. - Avoidance of triggers recommended - ALBUTEROL SULFATE 2.5 MG/3 ML (0.083 %) SOLUTION FOR NEBULIZATION - SPIROMETRY - BASELINE AND POST DILATOR - CONSULT TO PULMONARY MEDICINE 3. COVID-19 - ICD9: 079.89, ICD10: U07.1 - Recovering well Follow-up pending test results or sooner as needed. Discussed treatment plan and patient voices understanding. Patient's questions answered appropriately. Medications and potential side effects were discussed and patient voices understanding. Kari Katz APRN.ARJUN This note was partially generated using Fjuul voice recognition system. Note was reviewed for accuracy. There may be minor misspellings or grammar miscues with Fjuul voice recognition. documented in this encounter [facility] 05-18-2022 History of Present illness Narrative DAILY PROGRESS NOTE Admit Date: (Not on file) Date of Evaluation: 21:41 PM [facility] @[facility]@ IMPRESSION AND PLAN: 80 y/o female with history of CVA, CHF, GERD, asthma, gout and CKD III is here for CKD care. 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 Renal US disclosed cortical lobulation and scarring of the mildly atrophic kidneys without hydronephrosis on either side. Continue with torsemide 10mg PO Qday. Will start farxiga. Will consult pharmacy. Will get renal panel. 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 Uric acid 11.2 -> 4.6 She is on uloric 3) Chronic normocytic anemia: H and H 11.8 -> 12.3 -> 12.6 -> 11.5 and 35.1 -> 37.7 -> 37.6 -> 34.7 Last colonoscopy 2019 Will get CBC. SUBJECTIVE: Patient seen and examined. Chart, medications, labs reviewed. Appointment on 04/28/2022 Component Date Value Ref Range Status MAGNESIUM 04/28/2022 2.1 1.6 - 2.3 MG/DL Final WBC (WHITE BLOOD COUNT) 04/28/2022 7.3 3.6 - 11.0 10*3/uL Final RBC 04/28/2022 3.64 (A) 4.0 - 5.4 10*6/uL Final HEMOGLOBIN (HGB) 04/28/2022 11.5 (A) 12.0 - 16.0 G/DL Final HEMATOCRIT (HCT) 04/28/2022 34.7 (A) 36.0 - 48.0 % Final MEAN CELL VOLUME 04/28/2022 95.3 80.0 - 100.0 FL Final Mean Cell HGB 04/28/2022 31.6 26.0 - 35.0 PG Final MEAN CELL HGB CONCENTRATION 04/28/2022 33.2 27.0 - 37.0 G/DL Final RBC DISTRIBUTION 04/28/2022 14.1 11.5 - 14.5 % Final PLATELET COUNT 04/28/2022 346 130.0 - 400.0 10*3/uL Final MEAN PLATELET VOLUME 04/28/2022 6.5 (A) 7.4 - 11.0 FL Final DIFFERENTIAL TYPE 04/28/2022 AUTO DIFF % Final NEUTROPHILS 04/28/2022 81.6 (A) 37.0 - 75.0 % Final LYMPHOCYTE 04/28/2022 11.0 (A) 20.0 - 55.0 % Final MONOCYTE % 04/28/2022 5.8 0.0 - 10.0 % Final EOSINOPHIL % 04/28/2022 1.2 0.0 - 11.0 % Final BASOPHIL % 04/28/2022 0.4 0.0 - 2.0 % Final Absolute Neutrophil Count 04/28/2022 6.0 1.4 - 6.5 10*3/uL Final LYMPHOCYTES, ABSOLUTE 04/28/2022 0.80 (A) 1.2 - 3.4 10*3/uL Final MONOCYTES, ABSOLUTE 04/28/2022 0.4 0.0 - 0.7 10*3/uL Final ABSOLUTE EOSINOPHIL COUNT 04/28/2022 0.10 0.0 - 0.7 10*3/uL Final ABSOLUTE BASOPHIL COUNT 04/28/2022 0.0 0.0 - 0.2 10*3/uL Final GLUCOSE 04/28/2022 107 (A) 70 - 100 MG/DL Final Comment: NORMAL <100 mg/dL PREDIABETES 101-126 mg/dL DIABETES 126 mg/dL or higher BUN 04/28/2022 28 (A) 7 - 20 MG/DL Final CREATININE SERUM 04/28/2022 1.10 (A) 0.52 - 1.04 MG/DL Final SODIUM 04/28/2022 138 136 - 145 MMOL/L Final POTASSIUM 04/28/2022 4.6 3.5 - 5.1 MMOL/L Final CHLORIDE 04/28/2022 100 98 - 107 MMOL/L Final CARBON DIOXIDE (CO2) 04/28/2022 28 22 - 30 MMOL/L Final Albumin 04/28/2022 3.9 3.5 - 5.0 G/dl Final CALCIUM 04/28/2022 9.4 8.4 - 10.2 MG/DL Final PHOSPHORUS 04/28/2022 3.9 2.5 - 4.5 MG/DL Final ESTIMATED GFR, NON AMER 04/28/2022 50 ml/min/1.73sq.m Final ESTIMATED GFR, 04/28/2022 61 ml/min/1.73sq.m Final GFR COMMENT 04/28/2022 Average GFR for 70+ years old = 75. Final Comment: Chronic Kidney disease, GFR = <60. Kidney failure, GFR = <15. The GFR estimate is not adjusted for extreme body surface area or acute process, nor has it been validated for women or ethnic groups other than and . COLOR, URINE 04/28/2022 YELLOW YELLOW Final APPEARANCE, URINE 04/28/2022 CLEAR CLEAR Final Specific [place], Urine 04/28/2022 1.015 1.010 - 1.025 Final PH URINE 04/28/2022 6.0 5.0 - 7.0 Final PROTEIN, URINE 04/28/2022 NEGATIVE NEGATIVE mg/dl Final GLUCOSE, URINE 04/28/2022 NEGATIVE NEGATIVE mg/dl Final KETONES, URINE 04/28/2022 NEGATIVE NEGATIVE mg/dl Final BILIRUBIN, URINE 04/28/2022 NEGATIVE NEGATIVE Final BLOOD, URINE DIPSTICK 04/28/2022 SMALL (A) NEGATIVE Final NITRITES, URINE 04/28/2022 NEGATIVE NEGATIVE Final UROBILINOGEN, URINE 04/28/2022 0.2 0.2 - 1.0 E.U./dL Final LEUKOCYTE ESTERASE, URINE 04/28/2022 MODERATE (A) NEGATIVE Final SODIUM, URINE RANDOM 04/28/2022 66 MMOL/L Final SPECIMEN DESCRIPTION 04/28/2022 URINE - OTHER Final UA Dipstick 04/28/2022 LEUKOCYTE POSITIVE Final NITRITE NEGATIVE RESULT-CULT 04/28/2022 KLEBSIELLA PNEUMONIAE Final Comment: 40,000 C/C/ML CITROBACTER KOSERI 20,000 C/C/ML Testing performed at [place], [place] [address] Report Status 04/28/2022 05/01/2022 Final FINAL ORGANISM IDENTIFIED 04/28/2022 KLEBSIELLA PNEUMONIAE 40,000 C/C/ML Final ORGANISM IDENTIFIED 04/28/2022 CITROBACTER KOSERI Final WBC, URINE 04/28/2022 1 TO 5 NEGATIVE /HPF Final RBC, URINE 04/28/2022 1 TO 5 NEGATIVE /HPF Final Epithelial Cells UA 04/28/2022 1 TO 5 /HPF Final Mucus 04/28/2022 NEGATIVE NEGATIVE Final BACTERIA, URINE 04/28/2022 TRACE (A) NEGATIVE Final CRYSTALS, URINE 04/28/2022 NONE NONE Final CASTS, URINE 04/28/2022 NONE NONE /LPF Final COMMENT, URINE 04/28/2022 REFLEX CULTURE PER ESTABLISHED CRITERIA. Final LABS Labs-ABGs @ABGROUNDS@ Labs-CBC @CBCBRIEFROUNDS@ Labs-Chem 7(PMC) @[facility]@ Labs-Coags WBC (WHITE BLOOD COUNT) Date Value Ref Range Status 04/28/2022 7.3 3.6 - 11.0 10*3/uL Final 01/25/2022 6.3 3.6 - 11.0 10*3/uL Final 12/23/2021 6.7 3.6 - 11.0 10*3/uL Final HEMOGLOBIN (HGB) Date Value Ref Range Status 04/28/2022 11.5 (L) 12.0 - 16.0 G/DL Final 01/25/2022 12.4 12.0 - 16.0 G/DL Final 12/23/2021 12.6 12.0 - 16.0 G/DL Final HEMATOCRIT (HCT) Date Value Ref Range Status 04/28/2022 34.7 (L) 36.0 - 48.0 % Final 01/25/2022 36.9 36.0 - 48.0 % Final 12/23/2021 37.6 36.0 - 48.0 % Final PLATELET COUNT Date Value Ref Range Status 04/28/2022 346 130.0 - 400.0 10*3/uL Final 01/25/2022 300 130.0 - 400.0 10*3/uL Final 12/23/2021 249 130.0 - 400.0 10*3/uL Final SODIUM Date Value Ref Range Status 04/28/2022 138 136 - 145 MMOL/L Final 01/25/2022 137 136 - 145 MMOL/L Final 12/23/2021 139 136 - 145 MMOL/L Final CHLORIDE Date Value Ref Range Status 04/28/2022 100 98 - 107 MMOL/L Final 01/25/2022 101 98 - 107 MMOL/L Final 12/23/2021 102 98 - 107 MMOL/L Final BUN Date Value Ref Range Status 04/28/2022 28 (H) 7 - 20 MG/DL Final 01/25/2022 40 (H) 7 - 20 MG/DL Final 12/23/2021 47 (H) 7 - 20 MG/DL Final POTASSIUM Date Value Ref Range Status 04/28/2022 4.6 3.5 - 5.1 MMOL/L Final 01/25/2022 4.5 3.5 - 5.1 MMOL/L Final 12/23/2021 4.8 3.5 - 5.1 MMOL/L Final CREATININE SERUM Date Value Ref Range Status 04/28/2022 1.10 (H) 0.52 - 1.04 MG/DL Final 01/25/2022 1.09 (H) 0.52 - 1.04 MG/DL Final 12/23/2021 1.11 (H) 0.52 - 1.04 MG/DL Final GLUCOSE Date Value Ref Range Status 04/28/2022 107 (H) 70 - 100 MG/DL Final Comment: NORMAL <100 mg/dL PREDIABETES 101-126 mg/dL DIABETES 126 mg/dL or higher 01/25/2022 123 (H) 70 - 100 MG/DL Final Comment: NORMAL <100 mg/dL PREDIABETES 101-126 mg/dL DIABETES 126 mg/dL or higher 12/23/2021 114 (H) 70 - 100 MG/DL Final Comment: NORMAL <100 mg/dL PREDIABETES 101-126 mg/dL DIABETES 126 mg/dL or higher PROTEIN, TOTAL Date Value Ref Range Status 01/25/2022 6.2 Final Comment: Reference range: 6.0 to 8.5 Unit: g/dL 01/25/2022 6.8 6.3 - 8.2 GM/DL Final 03/29/2021 6.7 Final Comment: Reference range: 6.0 to 8.5 Unit: g/dL Albumin Date Value Ref Range Status 04/28/2022 3.9 3.5 - 5.0 G/dl Final 01/25/2022 3.5 Final Comment: Reference range: 2.9 to 4.4 Unit: g/dL 01/25/2022 3.9 3.5 - 5.0 G/dl Final AST Date Value Ref Range Status 01/25/2022 28 15 - 41 IU/L Final 05/19/2021 21 15 - 41 IU/L Final ALT Date Value Ref Range Status 01/25/2022 31 14 - 54 IU/L Final 05/19/2021 21 14 - 54 IU/L Final BILIRUBIN, TOTAL Date Value Ref Range Status 01/25/2022 0.8 0.2 - 1.2 MG/DL Final CALCIUM Date Value Ref Range Status 04/28/2022 9.4 8.4 - 10.2 MG/DL Final 01/25/2022 9.2 8.4 - 10.2 MG/DL Final 12/23/2021 9.6 8.4 - 10.2 MG/DL Final PHOSPHORUS Date Value Ref Range Status 04/28/2022 3.9 2.5 - 4.5 MG/DL Final 12/23/2021 4.1 2.5 - 4.5 MG/DL Final 08/31/2021 4.4 2.5 - 4.5 MG/DL Final MAGNESIUM Date Value Ref Range Status 04/28/2022 2.1 1.6 - 2.3 MG/DL Final 12/23/2021 2.6 (H) 1.6 - 2.3 MG/DL Final 07/15/2021 2.5 (H) 1.6 - 2.3 MG/DL Final Lab Results Component Value Date CREATURINE 57.7 07/21/2021 CREATSERUM 1.10 (H) 04/28/2022 BUN 28 (H) 04/28/2022 SODIUM 138 04/28/2022 POTASSIUM 4.6 04/28/2022 CHLORIDE 100 04/28/2022 CO2 28 04/28/2022 ROS: Constitution: No fever, no chill HEENT: No headache, no sinus issues CV: No chest pain, no palpitation Lung: No cough, No SOB Abd: No diarrhea, no constipation Neuro: No seizure, no loss of consciousness Heme: No bleeding, no bruise PHYSICAL EXAM: Wt Readings from Last 3 Encounters: 05/18/22 62.6 kg (137 lb 14.4 oz) 03/10/22 66.2 kg (146 lb) 12/29/21 65.4 kg (144 lb 1.6 oz) Temp Readings from Last 3 Encounters: 06/14/21 98 F (36.7 C) (Temporal) 05/07/21 98.7 F (37.1 C) (Temporal) 04/28/21 97.2 F (36.2 C) BP Readings from Last 3 Encounters: 05/18/22 115/77 03/10/22 120/62 12/29/21 125/70 Pulse Readings from Last 3 Encounters: 05/18/22 81 03/10/22 69 12/29/21 75 Gen: NAD, lying in bed, conversant HEENT: Atraumatic, PERRLA, moist membrane CV: RRR, nl S1 and S2, no m/g/r Lung: CTAB, no wheezing, no crackle Abd: +BS, nontender, no distended Ext: No rash, no clubbing, no cyanosis. No edema. Neuro: CNII-XII grossly intact, 5/5 strength, normal tone Skin: Warm and dry documented in this encounter [facility] documented in this encounter [facility]08-26-2022 Telephone encounter Note* Telephone Encounter - Robina Mera RN - 05/13/2022 8:56 AM EDT Pharmacy requesting refill. Recent office visit 02/[address] Benites to fill. Per request will send to [facility] [id number] Miscellaneous Notes* Telephone Encounter - Robina Mera RN - 05/13/2022 8:56 AM EDT Pharmacy requesting refill. Recent office visit 02/[address] Benites to fill. Per request will send to [facility] documented in this [id number] History of Present illness NarrativeMsOtis Donato is progressing well through their POC addressing debility and weakness. Pt has attended 3sessions since 05/09/22. Barriers to further progress include log falling on RLE and causing cellulitis. The pt demonstrates and verbalizes improvements in BLE strength and balance which improves safety with ADLs. Pt will benefit from one additional visit to add neuro re-ed and ther ex and update HEP. After this pt is being placed on hold for 30 days to attempt performing their home exercise program independently. Pt instructed to contact with any problems, questions, or adjustments. This will serve as the patient s discharge if they elect not to resume skilled PT within 30 days of last visit.Pt verbalized understanding and agreement to goals and POC. Thank you for this referral and please call [phone] with any questions or concerns. [facility] [place] Work Phone: [phone] 117-951208-19-2022 Instructions* Patient Instructions* Narcisa Bermudez RN - 05/06/2022 10:18 AM EDT Fact Sheet for Patients, Parents, and Caregivers Emergency Use Authorization (EUA) of Bebtelovimab for Coronavirus Disease 2019 (COVID-19) You are being given this Fact Sheet because your healthcare provider believes it is necessary to provide you or your child with bebtelovimab for the treatment of hzvn-ms-tzqglscu coronavirus disease 2019 (COVID-19) in adults and children (12 years of age and older weighing at least 88 pounds [40 kg]) with positive results of direct severe acute respiratory syndrome coronavirus 2 (SARS-CoV-2) viral testing, and who are at high risk for progression to severe COVID-19, including hospitalization or , and for whom other COVID-19 treatment options approved or authorized by FDA are not available or clinically appropriate. This Fact Sheet contains information to help you understand the potential risks and potential benefits of receiving bebtelovimab, which you or your child have received or may receive. The [place].S. Food and Drug Administration (FDA) has issued an Emergency Use Authorization (EUA) to make bebtelovimab available during the COVID-19 pandemic (for more details about an EUA please see What is an Emergency Use Authorization? at the end of this document). Bebtelovimab is not an FDA-approved medicine in the [place]. Read this Fact Sheet for information about bebtelovimab. Talk to your healthcare provider about your options or if you have any questions. It is your choice for you or your child to receive bebtelovimab or stop it at any time. What is COVID-19? COVID-19 is caused by a virus called a coronavirus (SARS-CoV-2). You can get COVID19 through contact with another person who has the virus. COVID-19 illnesses have ranged from very mild (including some with no reported symptoms) to severe, including illness resulting in . While information so far suggests that most COVID-19 illness is mild, serious illness can happen and may cause some of your or your child s other medical conditions to become worse. Older people and people of all ages with severe, or long lasting (chronic) medical conditions like heart disease, lung disease, diabetes, and obesity, for example, seem to be at higher risk of being hospitalized for COVID-19. Older age, with or without other conditions, also places people at higher risk of being hospitalized for COVID-19. What is bebtelovimab? Bebtelovimab is an investigational medicine used for the treatment of ygwi-qi-uauahlly coronavirus disease 2019 (COVID-19) in adults and children (12 years of age and older weighing at least 88 pounds [40 kg]): with positive results of direct SARS-CoV-2 viral testing, and 2 who are at high risk1 for progression to severe COVID-19, including hospitalization or , and for whom other COVID-19 treatment options approved or authorized by FDA are not available or clinically appropriate. There is limited information known about the safety and effectiveness of using bebtelovimab for the treatment of vnxp-lf-jrymydbq COVID-19. For more information on EUA, see the What is an Emergency Use Authorization (EUA)? section at the end of this Fact Sheet. Bebtelovimab is not authorized for use in people who: are likely to be infected with a SARS-CoV-2 variant that is not able to be treated by bebtelovimab based on the circulating variants in your area (ask your health care provider about FDA and CDC s latest information on circulating variants by geographic area), or are hospitalized due to COVID-19, or require oxygen therapy and/or respiratory support due to COVID-19, or require an increase in baseline oxygen flow rate and/or respiratory support due to COVID19 and are on chronic oxygen therapy and/or respiratory support due to underlying nonCOVID-19 related comorbidity. What should I tell my healthcare provider before I or my child receive bebtelovimab? Tell your healthcare provider about all your or your child s medical conditions including if you or your child: Have any allergies Are or plan to become Are or plan to breastfeed Have any serious illnesses Are taking any medicines (prescription, and kucy-fhl-gshmurv, vitamins, or herbal products) How will I or my child receive bebtelovimab? Bebtelovimab will be given as an injection through a vein (intravenously or IV) over at least 30 seconds. You will be observed by your healthcare provider for at least 1 hour after you receive bebtelovimab. What are the important possible side effects of bebtelovimab? Allergic reactions. Allergic reactions can happen during and after injection with bebtelovimab. Tell your healthcare provider right away if you or your child develop any of the following signs and symptoms of allergic reaction: fever, difficulty breathing, low oxygen level in your blood, chills, tiredness, fast or slow heart rate, chest discomfort or 1 For information on medical conditions and factors associated with increased risk for progression to severe COVID-19, see the Centers for Disease Control and Prevention (CDC) website: https://www.cdc.gov/coronavirus/2019-n cov/need-extraprecautions/rreyoz-wlpa-qazjici-conditions.html. Healthcare providers should considerthe benefit-risk for an individual patient. 3 pain, weakness, confusion, nausea, headache, shortness of breath, low or high blood pressure, wheezing, swelling of your lips, face, or throat, rash including hives, itching, muscle aches, dizziness, feeling faint, and sweating. These reactions may be severe or life threatening. The side effects of receiving any medicine by vein may include brief pain, bleeding, bruising of the skin, soreness, swelling, and possible infection at the injection site. These are not all the possible side effects of bebtelovimab. Not many people have received bebtelovimab. Serious and unexpected side effects may happen. All of the risks are not known at this time. It is possible that bebtelovimab could interfere with your body's own ability to fight off a future infection of SARS-CoV-2. Similarly, bebtelovimab may reduce the body s immune response to a vaccine for SARS-CoV-2. Talk to your healthcare provider if you have any questions. What other treatment choices are there? Like bebtelovimab, FDA may allow for the emergency use of other medicines to treat people with COVID-19. Go to https://www.fda.gov/wbzboxqsu-aivavgcnctuu-caz-response/byh-motvzjxrpgitgkn-qqf -policy-framework/csfyivytw-kup-cujscplraqpli for information on the emergency use of other medicines that are authorized by FDA to treat people with COVID-19. Your healthcare provider may talk with you about clinical trials for which you may be eligible. It is your choice for you or your child to be treated or not to be treated with bebtelovimab. Should you decide not to receive it or for your child to not receive it, it will not change your or your child s standard medical care. What if I am or ? There is limited experience treating women or mothers with bebtelovimab. For a mother and unborn baby, the benefit of receiving bebtelovimab may be greater than the risk from the treatment. If or , discuss your options and specific situation with your healthcare provider. How do I report side effects with bebtelovimab? Contact your healthcare provider if you have any side effects that bother you or do not go away. Report side effects to [employer] at www.fda.gov/medwatch, or call 1-222-EHS-4352 or to [employer] as shown below. Email Fax Number Telephone Number [email or web address] [phone] ( ) How can I learn more about COVID-19? Ask your healthcare provider 4 Visit https://www.cdc.gov/COVID19 Contact your local or state public health department What is an Emergency Use Authorization? The [place] FDA has made bebtelovimab available under an emergency access mechanism called an Emergency Use Authorization (EUA). The EUA is supported by a Transcription Manager of Health and Human Service (HHS) declaration that circumstances exist to justify the emergency use of drugs and biological products during the COVID-19 pandemic. Bebtelovimab for the treatment of kmco-yc-uinctfqx COVID-19 in adults and children (12 years of age and older weighing at least 88 pounds [40 kg]) and who are at high risk of developing severe COVID-19, including hospitalization or , and for whom other COVID19 treatment options approved or authorized by FDA are not available or clinically appropriate has not undergone the same type of review as an FDA-approved product. In issuing an EUA under the COVID-19 public health emergency, the FDA has determined, among other things, that based on the total amount of scientific evidence available, including data from adequate and well-controlled clinical trials, it is reasonable to believe that the product may be effective for diagnosing, treating, or preventing COVID-19, or a serious or life-threatening disease or condition caused by COVID-19; that the known and potential benefits of the product, when used to diagnose, treat, or prevent such disease or condition, outweigh the known and potential risks of such product; and that there are no adequate, approved and available alternatives. All of these criteria must be met to allow for the product to be used in the treatment of patients during the COVID-19 pandemic. The EUA for bebtelovimab is in effect for the duration of the COVID-19 declaration justifying emergency use of bebtelovimab, unless terminated or revoked (after which bebtelovimab may no longer be used under the EUA). Additional Information For general questions, visit the website or call the telephone number provided below. Website Telephone Number [email or web address] [phone] ( ) Literature issued October 29, 2021 [employer], [place] [address], [facility] Copyright 2021, [employer]. All rights reserved. [id number] documented in this encounterPaulding County Hospital08-18-2022 Instructions* Patient Instructions* Doreen Nogueira PA-C - 05/05/2022 1:15 PM EDT Fact Sheet for Patients, Parents, and Caregivers Emergency Use Authorization (EUA) of Bebtelovimab for Coronavirus Disease 2019 (COVID-19) You are being given this Fact Sheet because your healthcare provider believes it is necessary to provide you or your child with bebtelovimab for the treatment of gmwv-kc-rjehtidq coronavirus disease 2019 (COVID-19) in adults and children (12 years of age and older weighing at least 88 pounds [40 kg]) with positive results of direct severe acute respiratory syndrome coronavirus 2 (SARS-CoV-2) viral testing, and who are at high risk for progression to severe COVID-19, including hospitalization ordeath, and for whom other COVID-19 treatment options approved or authorized by FDA are not available or clinically appropriate. This Fact Sheet contains information to help you understand the potential risks and potential benefits of receiving bebtelovimab, which you or your child have received or may receive. The [place].S. Food and Drug Administration (FDA) has issued an Emergency Use Authorization (EUA) to makebebtelovimab available during the COVID-19 pandemic (for more details about an EUA please see What is an Emergency Use Authorization? at the end of this document). Bebtelovimab is not an FDA-approved medicine in the [place]. Read this Fact Sheet for information about bebtelovimab. Talk to your healthcare provider about your options or if you have any questions. It is your choice for you or your child to receive bebtelovimab or stop it at any time. What is COVID-19? COVID-19 is caused by a virus called a coronavirus (SARS-CoV-2). You can get COVID-19 through contact with another person who has the virus. COVID-19 illnesses have ranged from very mild (including some with no reported symptoms) to severe, including illness resulting in . While information sofar suggests that most COVID-19 illness is mild, serious illness can happen and may cause some of your or your child s other medical conditions to become worse. Older people and people of all ages with severe, or long lasting (chronic) medical conditions like heart disease, lung disease, diabetes, and obesity, for example, seem to be at higher risk of being hospitalized for COVID-19. Older age, with or without other conditions, also places people at higher risk of being hospitalized for COVID-19. What is bebtelovimab? Bebtelovimab is an investigational medicine used for the treatment of ckud-hr-iqmzzuvf coronavirus disease 2019 (COVID-19) in adults and children (12 years of age and older weighing at least 88 pounds [40 kg]): with positive results of direct SARS-CoV-2 viral testing, and who are at high risk for progression to severe COVID-19, including hospitalization or , and for whom other COVID-19 treatment options approved or authorized by FDA are not available or clinically appropriate. There is limited information known about the safety and effectiveness of using bebtelovimab for thetreatment of xusu-es-kqsapggi COVID-19. For more information on EUA, see the What is an Emergency Use Authorization (EUA)? section at the end of this Fact Sheet. Bebtelovimab is not authorized for use in people who: are likely to be infected with a SARS-CoV-2 variant that is not able to be treated by bebtelovimab based on the circulating variants in your area (ask your health care provider about FDA and CDC s latest information on circulating variants by geographic area), or are hospitalized due to COVID-19, or require oxygen therapy and/or respiratory support due to COVID-19, or require an increase in baseline oxygen flow rate and/or respiratory support due to COVID-19 and areon chronic oxygen therapy and/or respiratory support due to underlying [id number] related comorbidity. What should I tell my healthcare provider before I or my child receive bebtelovimab? Tell your healthcare provider about all your or your child s medical conditions including if you oryour child: Have any allergies Are or plan to become Are or plan to breastfeed Have any serious illnesses Are taking any medicines (prescription, and ufgi-ybl-frszkwb, vitamins, or herbal products) How will I or my child receive bebtelovimab? Bebtelovimab will be given as an injection through a vein (intravenously or IV) over at least 30 seconds. You will be observed by your healthcare provider for at least 1 hour after you receive bebtelovimab. What are the important possible side effects of bebtelovimab? Allergic reactions. Allergic reactions can happen during and after injection with bebtelovimab. Tell your healthcare provider right away if you or your child develop any of the following signs and symptoms of allergic reaction: fever, difficulty breathing, low oxygen level in your blood, chills, tiredness, fast or slow heart rate, chest discomfort or pain, weakness, confusion, nausea, headache, shortness of breath, low or high blood pressure, wheezing, swelling of your lips, face, or throat, rash including hives, itching, muscle aches, dizziness, feeling faint, and sweating. These reactions may be severe or life threatening. The side effects of receiving any medicine by vein may include brief pain, bleeding, bruising of the skin, soreness, swelling, and possible infection at the injection site. These are not all the possible side effects of bebtelovimab. Not many people have received bebtelovimab. Serious and unexpected side effects may happen. All of the risks are not known at this time. It is possible that bebtelovimab could interfere with your body's own ability to fight off a futureinfection of SARS-CoV-2. Similarly, bebtelovimab may reduce the body s immune response to a vaccinefor SARS-CoV-2. Talk to your healthcare provider if you have any questions. What other treatment choices are there? Like bebtelovimab, FDA may allow for the emergency use of other medicines to treat people with COVID-19. Go to https://www.fda.gov/ycotworwd-xkgprcqbnpkt-mij-response/hdn-sbhms-stimdeaazd-and -policy-framework/nmqffdhom-fvs-nxzcqqdrdaogm for information on the emergency use of other medicines that are authorized by FDA to treat people with COVID-19. Your healthcare provider may talk with you aboutclinical trials for which you may be eligible. It is your choice for you or your child to be treated or not to be treated with bebtelovimab. Should you decide not to receive it or for your child to not receive it, it will not change your or your child s standard medical care. What if I am or ? There is limited experience treating women or mothers with bebtelovimab. Fora mother and unborn baby, the benefit of receiving bebtelovimab may be greater than the risk from the treatment. If or , discuss your options and specific situation with your healthcare provider. How do I report side effects with bebtelovimab? Contact your healthcare provider if you have any side effects that bother you or do not go away. Report side effects to FDA MedWatch at www.fda.gov/medwatch, or call 2-133-QJX-2748 or to [employer] as shown below. Email Fax Number Telephone Number [email or web address] [phone] ( ) How can I learn more about COVID-19? Ask your healthcare provider Visit https://www.cdc.gov/COVID19 Contact your local or state public health department What is an Emergency Use Authorization? The [place] FDA has made bebtelovimab available under an emergency access mechanism called anEmergency Use Authorization (EUA). The EUA is supported by a Transcription Manager of Health and Human Service ([facility]) declaration that circumstances exist to justify the emergency use of drugs and biological products during the COVID- 19 pandemic. Bebtelovimab for the treatment of kdft-eq-biltqvdy COVID-19 in adults and children (12 years of ageand older weighing at least 88 pounds [40 kg]) and who are at high risk of developing severe COVID-19, including hospitalization or , and for whom other COVID-19 treatment options approved or authorized by FDA are not available or clinically appropriate has not undergone the same type of review as an FDA-approved product. In issuing an EUA under the COVID-19 public health emergency, the FDA has determined, among other things, that based on the total amount of scientific evidence available,including data from adequate and well-controlled clinical trials, it is reasonable to believe that t he product may be effective for diagnosing, treating, or preventing COVID-19, or a serious or life-threatening disease or condition caused by COVID-19; that the known and potential benefits of the product, when used to diagnose, treat, or prevent such disease or condition, outweigh the known and potential risks of such product; and that there are no adequate, approved and available alternatives. All of these criteria must be met to allow for the product to be used in the treatment of patients during the COVID-19 pandemic. The EUA for bebtelovimab is in effect for the duration of the COVID-19declaration justifying emergency use of bebtelovimab, unless terminated or revoked (after which bebtelovimab may no longer be used under the EUA). Additional Information For general questions, visit the website or call the telephone number provided below. Website Telephone Number [email or web address].[email or web address]/[email or web address] [phone] ( ) Literature issued October 29, 2021 [employer], [place] [address], [place] Copyright 2021, [employer]. All rights reserved. [id number] [facility]-[id number] documented in this encounterPaulding County Hospital08-18-2022 History of Present illness Narrative* Doreen Nogueira PA-C - 05/05/2022 11:44 AM EDT 05/05/2022 Patient presents with: Cough: Cough, and congestion-has COVID but concerned about pneumonia SUBJECTIVE: This is a 81 year old that is here today for Complaint(s) of COVID, worsening symptoms x Monday Patient was diagonsed with COVID on Monday of this week, symptom starting on Monday. She has had a fever throughout the illness, Tmax 102.4, no fever since last evening. OVerall feels like it is moving more into her chest and cough worsening. Slight SOB per patient, just a tad . Denies wheezing, vomiting, diarrhea. She was recently treated for pneumonia following a hospitalization for bowel obstruction on 04/21. She was treated with antibiotics and repeat XR at f/u visit on 04/29 was clear. PAST MEDICAL HISTORY Diagnosis Date Asthma CKD (chronic kidney disease) stage 3, GFR 30-59 ml/min (HCC) Congestive heart failure, unspecified 2002 Cardiology [facility] Diverticulosis of sigmoid External hemorrhoids without mention of complication Family history of malignant neoplasm of gastrointestinal tract Gastric polyps Gout Hiatal hernia History of breast cancer History of skin cancer History of uterine cancer cervical Internal hemorrhoids without mention of complication Iron deficiency anemia Kidney disease Osteopenia Restrictive cardiomyopathy (HCC) TIA (transient ischemic attack) right eye vision changes, carotid US reported as NL Unspecified essential hypertension since age 28 ALLERGIES Benadryl [Diphenhydramine Hcl], Krystexxa [Pegloticase], Sulfur Dioxide, Talwin [Pentazocine Lactate], Valium [Diazepam], Advair Diskus [Fluticasone Propion-Salmeterol], Penicillins, Sulfa (Sulfonamide Antibiotics), Adhesive Tape (Rosins), and No Bp Or Venipunctures Left Arm [Other] MEDICATIONS Current Outpatient Medications Medication Sig albuterol (PROVENTIL) 2.5 mg /3 mL (0.083 %) nebulizer solution Use 3 mL via nebulizer every 6 hours as needed for wheezing/shortness of breath. Use over 5-15minutes. clopidogrel (PLAVIX) 75 mg tablet aspirin, enteric coated (ASPIRIN, ENTERIC COATED) 81 mg EC tablet Take 1 tablet by mouth once daily. albuterol HFA (VENTOLIN HFA) 90 mcg/actuation inhaler Inhale 2 Puffs as instructed every 4 hours asneeded for wheezing/shortness of breath. ProAir RespiClick 90 mcg/actuation breath activated (albuterol sulfate) Inhale 2 Puffs as instructed every 4 hours as needed. predniSONE (DELTASONE) 5 mg tablet Take 2.5 mg by mouth once daily. From ue. montelukast (SINGULAIR) 10 mg tablet Take 1 tablet by mouth daily at bedtime. budesonide-formoterol (SYMBICORT) 160-4.5 mcg/actuation inhaler Inhale 2 Puffs as instructed twice daily. omeprazole (PRILOSEC) 40 mg capsule Take 1 capsule by mouth once daily. febuxostat (ULORIC) 40 mg tab Take 1 tablet by mouth once daily. spironolactone (ALDACTONE) 25 mg tablet Take 1 tablet by mouth once daily. losartan (COZAAR) 25 mg tablet Take 1 tablet by mouth once daily. torsemide (DEMADEX) 10 mg tablet Take 10 mg by mouth once daily. xkvfnsly-nwgfickhr-zzemgnhtjlcfrf (CORTISPORIN) 3.5-10,000-1 mg/mL-unit/mL-% otic suspension Use 3 Drops in the right ear four times daily. (Patient not taking: Reported on 04/29/2022) dipyridamole(PERSANTINE 75 MG TAB) Take one(1) tablet two(2) times daily. (Patient not taking: Takeone(1) tablet two(2) times daily. ) No current facility-administered medications for this visit. SOCIAL HISTORY Social History Tobacco Use Smoking status: Never Smokeless tobacco: Never Vaping Use Vaping Use: Never used Substance Use Topics Alcohol use: No Drug use: No REVIEW OF SYSTEMS See HPI OBJECTIVE: BP 136/74 Pulse 74 Temp 37.1 C (98.8 F) (Tympanic) Resp 18 Wt 62.5 kg (137 lb 12.8 oz) SpO2 98% BMI 26.04 kg/m APPEARANCE Well appearing, alert, in no acute distress, well-hydrated, well nourished. EYES PERRLA, conjunctiva and sclera normal. EARS External ears normal, canals clear, TMs Normal NOSE/SINUS Nares normal. Septum midline. Mucosa normal. No drainage or sinus tenderness. THROAT normal, no erythema NECK Supple, no adenopathy; HEART RRR with normal S1 and S2 LUNG clear to auscultation, no wheezing, rhonchi, rales ASSESSMENT/PLAN: 1. COVID - ICD9: 079.89, ICD10: U07.1 (primary diagnosis) Patient doing well. Referred for MAB therapy. Patient agrees. Patient does not want to take oral antivirals. - XR CHEST 2V FRONTAL/LAT-no obvious pneumonia at this time 2. COVID-19 - ICD9: 079.89, ICD10: U07.1 As above Reviewed red flags and when to seek care sooner. - INTERMITTENT PERIPHERAL DEVICE (ID,[place]) - SODIUM CHLORIDE 0.9 % INJECTION SOLUTION - AMBULATORY NURSING COMMUNICATION ORDER - SODIUM CHLORIDE 0.9 % INTRAVENOUS SOLUTION - ACETAMINOPHEN 325 MG TABLET - EPINEPHRINE 1 MG/ML (1 ML) INJECTION SOLUTION - ONDANSETRON HCL (PF) 4 MG/2 ML INJECTION SOLUTION - ONDANSETRON HCL 4 MG TABLET - PROCHLORPERAZINE EDISYLATE 10 MG/2 ML (5 MG/ML) INJECTION SOLUTION - PROCHLORPERAZINE MALEATE 5 MG TABLET - METOCLOPRAMIDE 5 MG/ML INJECTION SOLUTION - METOCLOPRAMIDE 10 MG TABLET - COVID TREATMENT REFERRAL - BEBTELOVIMAB 175 MG/2 ML (87.5 MG/ML) INTRAVENOUS SOLUTION (EUA) The patient indicates understanding of these issues and agrees with the plan. I spent a total of 40 minutes on the date of the service which included hsdl-dv-anho patient care, completing clinical documentation, performing a medically appropriate examination, counseling and educating the patient/family/caregiver, and communicating results to the patient/family/caregiver. Doreen Nogueira PA-C documented in this encounterPaulding County Hospital08-17-2022 Miscellaneous Notes* Telephone Encounter - Ashly Goss LPN - 05/04/2022 3:30 PM EDT Patient spouse notified of results, verbalizes understanding of instructions. He will tell pt. Ashly Goss LPN * Telephone Encounter - Manju Vargas APRN.CNP - 05/04/2022 3:14 PM EDT Please inform patient that urine culture did not show any growth of bacteria requiring treatment. Advise due to blood in the urine that she follow up with PCP for recheck of urine in 1-2 weeks. documented in this encounterPaulding County Hospital08-17-2022 Miscellaneous Notes* Telephone Encounter - Imani Florez Ma - 05/04/2022 2:38 PM EDT Unbabelt message sent to pt notifying her we tried contacting her regarding her labs. Asked for a call back. Imani Florez Ma * Telephone Encounter - Ashly Goss LPN - 05/02/2022 12:53 PM EDT TC to pt. LM to call office, ask for triage nurse to get results. Ashly Goss LPN * Telephone Encounter - Kari aKtz APRN.CNP - 05/02/2022 12:41 PM EDT Can you please call the patient and let her know that I reviewed her lab results. BNP is mildly elevated which can be consistent with CHF. Decreased kidney function but stable. Potassium was mildly elevated. I would encourage the patient to be mindful of potassium rich foods and try to reduce consumption. 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 No further testing is needed at this time. Please let me know if she has any questions. Thank you. Kari Katz APRN.ARJUN documented in this encounterPaulding County Hospital08-16-2022 Miscellaneous Notes* Telephone Encounter - Yolanda Galeano - 05/03/2022 2:18 PM EDT Patient given results and verbalized understanding of instructions given. Yolanda Galeano * Telephone Encounter - Ronni Holland APRN.CNP - 05/03/2022 1:29 PM EDT No new acute findings noted on today's lab work. Continue supportive therapies as discussed. Follow-up in ED if any new or worsening symptoms develop. Follow- up tomorrow with PCP as scheduled if COVID-19 test is negative. If positive switch appointment to virtual visit. Ronni Holland APRN.CNP documented in this encounterPaulding County Hospital08-16-2022 History of Present illness Narrative* Ronni Holland APRN.CNP - 05/03/2022 11:19 AM EDT Subjective HPI Nontoxic-appearing female presents urgent care chief complaint possible UTI. Duration of symptom 1 day. Associated symptoms urine incontinence fever chills body aches night sweats cough sore throat head congestion fatigue. Patient states she has had UTIs in the past this feels different. Has not used any UTI medications for this chief complaint. Did take Tylenol at 8 AM this morning. This did help with her fever. Highest recorded temperature 101.2. No known sick contacts. Recently discharged from the hospital with pneumonia/bowel obstruction. Date of admission was 04/14/2022. Patient did have office follow-up 04/29/22. Presents today for evaluation. Patient states she is quite fatigued. No known sick contacts in the house. Denies any pain currently. Denies any productive cough chest pain shortness of breath pleuritic pain hemoptysis nausea vomiting abdominal pain change in bowel habits. Past medical history prescription medication use and allergies reviewed. .Patient presents with: Urinary Frequency: frequency x 1 day PAST MEDICAL HISTORY Diagnosis Date Asthma CKD (chronic kidney disease) stage 3, GFR 30-59 ml/min (HCC) Congestive heart failure, unspecified 2002 Cardiology [facility] Diverticulosis of sigmoid External hemorrhoids without mention of complication Family history of malignant neoplasm of gastrointestinal tract Gastric polyps Gout Hiatal hernia History of breast cancer History of skin cancer History of uterine cancer cervical Internal hemorrhoids without mention of complication Iron deficiency anemia Kidney disease Osteopenia Restrictive cardiomyopathy (HCC) TIA (transient ischemic attack) right eye vision changes, carotid US reported as NL Unspecified essential hypertension since age 28 PAST SURGICAL HISTORY Procedure Laterality Date APPENDECTOMY CARDIAC CATH X--3 CATARACT EXT; EYEONICS IOL SYS CHOLECYSTECTOMY 1983 COLONOSCOPY FLX DX W/COLLJ SPEC WHEN PFRMD [facility] 2007 Colonoscopy COLONOSCOPY FLX DX W/COLLJ SPEC WHEN PFRMD 06/23/11 COLONOSCOPY FLX DX W/COLLJ SPEC WHEN PFRMD 06/08/16 Colonoscopy (MAC) COLONOSCOPY FLX DX W/COLLJ SPEC WHEN PFRMD 07/15/2019 DILATION & CURETTAGE DX&/THER NONOBSTETRIC five Dilation & curettage DXA BONE DENSITY, AXIAL MAST RAD W/PECTORAL MUSCLES AXILLARY LYMPH NODES 1978 double OOPHORECTOMY PARTIAL/TOTAL UNI/BI 1985 Oophorectomy RECONSTRUCTION ROTATOR CUFF AVULSION CHRONIC 2003 right REPAIR RECTOCELE SEPARATE PROCEDURE 1979 SMALL BOWEL 03/2015 MESENTERIC ISCHEMIA TOTAL ABDOMINAL HYSTERECT W/WO RMVL TUBE OVARY Hysterectomy, RAFIA VAGINAL HYSTERECTOMY UTERUS 250 GM/< 1968 Hysterectomy, vaginal YAG CAPSULOTOMY OD (RIGHT EYE) Right 02/28/2020 Dr. Kaminski ALLERGIES Benadryl [Diphenhydramine Hcl], Krystexxa [Pegloticase], Sulfur Dioxide, Talwin [Pentazocine Lactate], Valium [Diazepam], Advair Diskus [Fluticasone Propion-Salmeterol], Penicillins, Sulfa (Sulfonamide Antibiotics), Adhesive Tape (Rosins), and No Bp Or Venipunctures Left Arm [Other] MEDICATIONS albuterol (PROVENTIL) 2.5 mg /3 mL (0.083 %) nebulizer solution Use 3 mL via nebulizer every 6 hours as needed for wheezing/shortness of breath. Use over 5-15minutes. clopidogrel (PLAVIX) 75 mg tablet aspirin, enteric coated (ASPIRIN, ENTERIC COATED) 81 mg EC tablet Take 1 tablet by mouth once daily. albuterol HFA (VENTOLIN HFA) 90 mcg/actuation inhaler Inhale 2 Puffs as instructed every 4 hours asneeded for wheezing/shortness of breath. ProAir RespiClick 90 mcg/actuation breath activated (albuterol sulfate) Inhale 2 Puffs as instructed every 4 hours as needed. predniSONE (DELTASONE) 5 mg tablet Take 2.5 mg by mouth once daily. From [facility]. montelukast (SINGULAIR) 10 mg tablet Take 1 tablet by mouth daily at bedtime. budesonide-formoterol (SYMBICORT) 160-4.5 mcg/actuation inhaler Inhale 2 Puffs as instructed twice daily. omeprazole (PRILOSEC) 40 mg capsule Take 1 capsule by mouth once daily. febuxostat (ULORIC) 40 mg tab Take 1 tablet by mouth once daily. spironolactone (ALDACTONE) 25 mg tablet Take 1 tablet by mouth once daily. losartan (COZAAR) 25 mg tablet Take 1 tablet by mouth once daily. torsemide (DEMADEX) 10 mg tablet Take 10 mg by mouth once daily. ymmkxapm-ccxmdiucp-ockarviuiwtlhn (CORTISPORIN) 3.5-10,000-1 mg/mL-unit/mL-% otic suspension Use 3 Drops in the right ear four times daily. (Patient not taking: Reported on 04/29/2022) dipyridamole(PERSANTINE 75 MG TAB) Take one(1) tablet two(2) times daily. (Patient not taking: Takeone(1) tablet two(2) times daily. ) FAMILY HISTORY Problem Relation Age of Onset Cancer Mother throat, stomach, colon age 69 ? unclear primary by description Thyroid Mother Heart Father age 57 Hypertension Father Stroke Paternal Grandfather Stroke Paternal Grandmother Diabetes Brother Coronary Artery Disease Maternal Grandfather Cancer Maternal Grandmother pancreatic Social History Tobacco Use Smoking status: Never Smokeless tobacco: Never Vaping Use Vaping Use: Never used Substance Use Topics Alcohol use: No Drug use: No BP 124/72 Pulse 86 Temp 37.5 C (99.5 F) Resp 16 Wt 63 kg (139 lb) SpO2 96% BMI 26.26 kg/m Review of Systems Constitutional: Positive for chills, fever and malaise/fatigue. HENT: Positive for congestion and sore throat. Negative for ear discharge, ear pain and sinus pain. Eyes: Negative for blurred vision, pain, discharge and redness. Respiratory: Positive for cough. Negative for hemoptysis, sputum production, shortness of breath, wheezing and stridor. Cardiovascular: Negative for chest pain. Gastrointestinal: Negative for abdominal pain, diarrhea, nausea and vomiting. Genitourinary: Positive for frequency. Negative for dysuria, flank pain, hematuria and urgency. Musculoskeletal: Positive for myalgias. Skin: Negative for itching and rash. Neurological: Positive for headaches. Negative for dizziness. Objective Physical Exam Constitutional: General: She is not in acute distress. Appearance: She is not diaphoretic. HENT: Head: Normocephalic. Mouth/Throat: Mouth: Mucous membranes are moist. Pharynx: Oropharynx is clear. No oropharyngeal exudate or posterior oropharyngeal erythema. Eyes: Conjunctiva/sclera: Conjunctivae normal. Pupils: Pupils are equal, round, and reactive to light. Cardiovascular: Rate and Rhythm: Normal rate and regular rhythm. Heart sounds: Normal heart sounds. Pulmonary: Effort: Pulmonary effort is normal. No tachypnea, accessory muscle usage or respiratory distress. Breath sounds: Normal breath sounds. No stridor. No wheezing, rhonchi or rales. Abdominal: General: Bowel sounds are normal. There is no distension. Palpations: Abdomen is soft. Tenderness: There is abdominal tenderness in the left upper quadrant. There is no right CVA tenderness, left CVA tenderness, guarding or rebound. Comments: Slight tenderness on left upper quadrant. Musculoskeletal: Cervical back: Normal range of motion and neck supple. No rigidity or tenderness. Lymphadenopathy: Cervical: No cervical adenopathy. Skin: General: Skin is warm and dry. Neurological: Mental Status: She is alert and oriented to person, place, and time. ASSESSMENT/PLAN: 1. Urinary frequency - ICD9: 788.41, ICD10: R35.0 (primary diagnosis) - UA DIP, URINE (POC) - URINE CULTURE 2. Fever, unspecified fever cause - ICD9: 780.60, ICD10: R50.9 - CBC + DIFF - COMP METABOLIC PANEL - COMP METABOLIC PANEL 3. Suspected COVID-19 virus infection - ICD9: V01.79, ICD10: Z20.822 - 2019 CORONAVIRUS Small amount of blood noted on urine dip. This has been previous on the last 2 urine dips. Will notstart antibiotics today. Will follow-up with PCP for further evaluation of persistent hematuria. Noevidence of acute abdomen on examination. Suspicious fever cause is from viral symptoms. Will test for COVID-19. If negative we will follow-up with PCP tomorrow for reevaluation. Labs obtained at today's visit. Patient was educated on supportive therapies. Patient was instructed to immediately proceed to emergency room for any new, worsening, or symptoms lasting longer than anticipated. The patient's clinical presentation is otherwise unremarkable at this time. Based on exam and clinical finding, the patient is stable for discharge. Plan of care was discussed with patient. Patient verbalizes understanding and agrees to plan of care. This note was generated using Fjuul software. It may contain errors in wording, punctuation, or spelling. Ronni Holland APRN.ARJUN documented in this encounterPaulding [facility]08-12-2022 Miscellaneous Notes* Addendum Note - Kari Katz APRN.CNP - 04/29/2022 1:01 PM EDTAddended by: KARI KATZ on: 04/29/2022 01:01 PM Modules accepted: Orders documented in this encounterPaulding County Hospital08-12-2022 Miscellaneous Notes* Telephone Encounter - Ashly Goss LPN - 04/29/2022 12:58 PM EDT Patient notified of results, verbalizes understanding of instructions. Ashly Goss LPN * Telephone Encounter - Kari Katz APRN.CNP - 04/29/2022 12:54 PM EDT Can you call the patient and let her know that her chest x-ray was normal. She does not need to start the Levaquin. I would recommend supportive care at home she may try the Mucinex to help with getting mucus out of the chest. She may continue to use her albuterol as needed. Please let me know if she has any questions. Kari Katz APRN.CNP documented in this encounterPaulding County Hospital08-12-2022 Instructions* Patient Instructions* Kari Katz APRN.CNP - 04/29/2022 12:12 PM EDT 1.) Get stat xray of chest today. 2.) Start Levaquin, I tablet daily for 7 days. 3.) Continue to use albuterol as needed may add on Mucinex as need for chest congestion. 4.) Supportive care at home, stay well hydrated and get rest. 5.) Red flag symptoms go to ER. 6.) Follow up pending test results or sooner as needed. documented in this encounterPaulding County Hospital08-12-2022 History of Present illness Narrative* Kari Katz APRN.CNP - 04/29/2022 12:02 PM EDT This is a 81 year old female who presents today with: Patient presents with: Acute Visit: PNE getting worse HISTORY OF PRESENT ILLNESS: Ruth Donato is a 81 year old female. Patient presents with: Acute Visit: PNE getting worse Here in the office for concerns of recurrent pnumonia. Was seen for hospital follow up 04/21/2022, was started on Ceftin and Zpack from the ER. Refers that she is still having cough, difficulty with taking deep breath. Cough is dry but feels like she needs to cough out mucus but cannot. History of Asthma. Using nebulizer 3 times per day. No fever or chills. PAST MEDICAL HISTORY: PAST MEDICAL HISTORY Diagnosis Date Asthma CKD (chronic kidney disease) stage 3, GFR 30-59 ml/min ([facility]) [facility], unspecified [facility] Diverticulosis of sigmoid External hemorrhoids without mention of complication Family history of malignant neoplasm of gastrointestinal tract Gastric polyps Gout Hiatal hernia History of breast cancer History of skin cancer History of uterine cancer cervical Internal hemorrhoids without mention of complication Iron deficiency anemia Kidney disease Osteopenia Restrictive cardiomyopathy (HCC) TIA (transient ischemic attack) right eye vision changes, carotid US reported as NL Unspecified essential hypertension since age 28 PAST SURGICAL HISTORY Procedure Laterality Date APPENDECTOMY CARDIAC CATH X--3 CATARACT EXT; EYEONICS IOL SYS CHOLECYSTECTOMY 1983 COLONOSCOPY FLX DX W/COLLJ SPEC WHEN PFRMD [facility] 2007 Colonoscopy COLONOSCOPY FLX DX W/COLLJ SPEC WHEN PFRMD 06/23/11 COLONOSCOPY FLX DX W/COLLJ SPEC WHEN PFRMD 06/08/16 Colonoscopy (MAC) COLONOSCOPY FLX DX W/COLLJ SPEC WHEN PFRMD 07/15/2019 DILATION & CURETTAGE DX&/THER NONOBSTETRIC five Dilation & curettage DXA BONE DENSITY, AXIAL MAST RAD W/PECTORAL MUSCLES AXILLARY LYMPH NODES 1978 double OOPHORECTOMY PARTIAL/TOTAL UNI/BI 1985 Oophorectomy RECONSTRUCTION ROTATOR CUFF AVULSION CHRONIC 2003 right REPAIR RECTOCELE SEPARATE PROCEDURE 1979 SMALL BOWEL 03/2015 MESENTERIC ISCHEMIA TOTAL ABDOMINAL HYSTERECT W/WO RMVL TUBE OVARY Hysterectomy, RAFIA VAGINAL HYSTERECTOMY UTERUS 250 GM/< 1968 Hysterectomy, vaginal YAG CAPSULOTOMY OD (RIGHT EYE) Right 02/28/2020 Dr. Kaminski ALLERGIES Benadryl [Diphenhydramine Hcl], Krystexxa [Pegloticase], Sulfur Dioxide, Talwin [Pentazocine Lactate], Valium [Diazepam], Advair Diskus [Fluticasone Propion-Salmeterol], Penicillins, Sulfa (Sulfonamide Antibiotics), Adhesive Tape (Rosins), and No Bp Or Venipunctures Left Arm [Other] MEDICATIONS Current Outpatient Medications Medication Sig clopidogrel (PLAVIX) 75 mg tablet aspirin, enteric coated (ASPIRIN, ENTERIC COATED) 81 mg EC tablet Take 1 tablet by mouth once daily. albuterol HFA (VENTOLIN HFA) 90 mcg/actuation inhaler Inhale 2 Puffs as instructed every 4 hours asneeded for wheezing/shortness of breath. ProAir RespiClick 90 mcg/actuation breath activated (albuterol sulfate) Inhale 2 Puffs as instructed every 4 hours as needed. predniSONE (DELTASONE) 5 mg tablet Take 2.5 mg by mouth once daily. From [facility]. montelukast (SINGULAIR) 10 mg tablet Take 1 tablet by mouth daily at bedtime. budesonide-formoterol (SYMBICORT) 160-4.5 mcg/actuation inhaler Inhale 2 Puffs as instructed twice daily. omeprazole (PRILOSEC) 40 mg capsule Take 1 capsule by mouth once daily. febuxostat (ULORIC) 40 mg tab Take 1 tablet by mouth once daily. spironolactone (ALDACTONE) 25 mg tablet Take 1 tablet by mouth once daily. losartan (COZAAR) 25 mg tablet Take 1 tablet by mouth once daily. albuterol (PROVENTIL) 2.5 mg /3 mL (0.083 %) nebulizer solution Use 3 mL via nebulizer every 6 hours as needed for Wheezing/Shortness of Breath. Use over 5-15minutes. torsemide (DEMADEX) 10 mg tablet Take 10 mg by mouth once daily. zxswfakl-zmponnxvd-vmhkwtlccpqpjm (CORTISPORIN) 3.5-10,000-1 mg/mL-unit/mL-% otic suspension Use 3 Drops in the right ear four times daily. (Patient not taking: Reported on 04/29/2022) dipyridamole(PERSANTINE 75 MG TAB) Take one(1) tablet two(2) times daily. (Patient not taking: Takeone(1) tablet two(2) times daily. ) No current facility-administered medications for this visit. FAMILY HISTORY Problem Relation Age of Onset Cancer Mother throat, stomach, colon age 69 ? unclear primary by description Thyroid Mother Heart Father age 57 Hypertension Father Stroke Paternal Grandfather Stroke Paternal Grandmother Diabetes Brother Coronary Artery Disease Maternal Grandfather Cancer Maternal Grandmother pancreatic Social History Tobacco Use Smoking status: Never Smokeless tobacco: Never Vaping Use Vaping Use: Never used Substance Use Topics Alcohol use: No Drug use: No REVIEW OF SYSTEMS GENERAL: No weight loss, malaise or fevers/chills HEENT: Negative for frequent or significant headaches, No changes in hearing or vision. NECK: Negative for lumps, goiter, pain and significant neck swelling RESPIRATORY: + Cough CARDIOVASCULAR: Negative for chest pain, leg swelling, orthopnea, or palpitations GI: No nausea, vomiting, or diarrhea/constipation. No hematochezia/melena. No heartburn or reflux symptoms. : No history of dysuria, frequency or incontinence MUSCULOSKELETAL: Negative for joint pain or swelling. SKIN: Negative for lesions, rash, and itching ENDOCRINE: Negative for cold or heat intolerance, polyuria, polydipsia and goiter NEURO: No history of headaches, syncope, paralysis, seizures or tremors MOOD: Negative for depression, anxiety, or suicidal ideation. EXAM: BP 152/60 Pulse 72 Resp 20 Wt 64 kg (141 lb) SpO2 98% BMI 26.64 kg/m PHYSICAL EXAM: General Appearance: Well appearing, alert, in no acute distress, well-hydrated, well nourished. Skin: Skin color, texture, turgor normal, no suspicious rashes or lesions. Head: Normocephalic, no masses, lesions, tenderness or abnormalities. Eyes: Anicteric sclera. Extraocular movements are intact. Neck: Supple, no adenopathy; thyroid symmetric, normal size, no bruits. Lungs: Positive findings: Decreased breath sounds in the bases. Heart: RRR without murmur, gallop, or rubs. No ectopy. Extremities: No deformities, edema, skin discoloration, clubbing or cyanosis. Good capillary refill. Peripheral Pulses: Normal, Capillary refill <2secs, strong peripheral pulses, Pulses palpable. Neurologic: Gait normal. Sensation grossly intact. ASSESSMENT/PLAN: 1. URI, acute - ICD9: 465.9, ICD10: J06.9 (primary diagnosis) - URI Vs. Asthma Exacerbation - Chest xray stat, Normal - Instructed the patient to continue to use albuterol as needed and supportive care at home. - Red flag symptoms go to ER> - ALBUTEROL SULFATE 2.5 MG/3 ML (0.083 %) SOLUTION FOR NEBULIZATION - XR CHEST 2V FRONTAL/LAT 2. Moderate persistent asthma without complication - ICD9: 493.90, ICD10: J45.40 - Refill provided. - ALBUTEROL SULFATE 2.5 MG/3 ML (0.083 %) SOLUTION FOR NEBULIZATION Follow up pending test results or sooner as needed. Discussed treatment plan and patient voices understanding. Patient's questions answered appropriately. Medications and potential side effects were discussed and patient voices understanding. Kari Katz APRN.ONLINE MERCHANDISING SPECIALIST This note was partially generated using Dragon voice recognition system. Note was reviewed for accuracy. There may be minor misspellings or grammar miscues with Syned[employer] voice recognition. A documented in this encounterPaulding [facility] Hospital08-10-2022 Miscellaneous Notes* Telephone Encounter - Angelina Mcclain RN - 04/27/2022 10:[address] [facility] called in and asking what does was correct for the Pts Diflucan.Let her know that the, Take 1 tablet by mouth one time only for 1 dose. Repeat in 3 days as needed. , was correct. The other order was discontinued. documented in this encounterPaulding County Hospital08-10-2022 Miscellaneous Notes* Addendum Note - Kari Katz APRN.CNP - 04/27/2022 9:52 AM EDTAddended by: KARI KATZ on: 04/27/2022 09:52 AM Modules accepted: Orders * Telephone Encounter - Kari Katz APRN.CNP - 04/27/2022 9:50 AM EDT The following approved medication requests have been transmitted electronically. Requested Prescriptions Signed Prescriptions Disp Refills fluconazole (DIFLUCAN) 150 mg tablet 2 tablet 0 Sig: Take 1 tablet by mouth one time only for 1 dose. Repeat in 3 days as needed. Kari Katz APRN.CNP * Telephone Encounter - Imani Florez Ma - 04/27/2022 8:26 AM EDT Please see pt message and advise. Imani Florez Ma documented in this encounterPaulding County Hospital08-04-2022 Instructions* Patient Instructions* Kari Katz APRN.CNP - 04/21/2022 10:14 AM EDT 1.) Get repeat labs in 1 week. 2.) Continue to take all medication as prescribed. 3.) May increase water restriction to about 50 ounces per day to help with hydration. 4.) Continue to wear compression socks, elevate the legs, and watch salt in the diet. 5.) Keep scheduled appointment with cardiology next week. 6.) Get repeat chest xray in 1 month. 7.) Follow up in 1 month or sooner as needed. documented in this encounterPaulding County Hospital08-04-2022 History of Present illness Narrative* Kari Katz APRN.CNP - 04/21/2022 10:00 AM EDT This is a 81 year old female who presents today with: Patient presents with: Hospital Follow Up: small bowel obstruction/Pneumonia HISTORY OF PRESENT ILLNESS: Ruth Donato is a 81 year old female. Patient presents with: Hospital Follow Up: small bowel obstruction/Pneumonia Here in the office for hospital follow up. Transitional Care Management Progress Note The patients TCM visit was performed within the 7 days of discharge. Patient's Date of discharge: 04/14/2022 Date of initial coordinator contact after discharge: unknown Discharge diagnosis: Small bowel obstruction Medication review completed Yes HOSPITAL/ER FOLLOW UP: Reason for visit: Abdominal pain, nausea, and vomiting. 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 Treatment given: NG tube placed, IV fluids normal saline, Pepcid, Zofran as needed. Placed on n.p.o. precautions. History of small bowel obstructions in the past which have resolved on their own. Current symptoms: Feeling better but had to go back to ER on Monday for cough and SOB. Diagnosed with pneumonia. Prescribed Ceftin and Zpack. Having on going diarrhea/softer stool due to antibiotics.Taking Probiotic. History of asthma. Having on going abdominal distentesion and lower leg edema. Is concerned due to CHF and kidney disease. Refers they gave her a lot of IV fluids in hospital. Taking duiretic as prescribed and salt restricted diet. Water restiction per cardiology for 40 ounzes per day but nephrology wants 64 ounces. Wearing compression socks. PAST MEDICAL HISTORY: PAST MEDICAL HISTORY Diagnosis Date Asthma CKD (chronic kidney disease) stage 3, GFR 30-59 ml/min (HCC) Congestive heart failure, unspecified 2002 Cardiology Geovanna Delmis, [facility] Diverticulosis of sigmoid External hemorrhoids without mention of complication Family history of malignant neoplasm of gastrointestinal tract Gastric polyps Gout Hiatal hernia History of breast cancer History of skin cancer History of uterine cancer cervical Internal hemorrhoids without mention of complication Iron deficiency anemia Kidney disease Osteopenia Restrictive cardiomyopathy (HCC) TIA (transient ischemic attack) right eye vision changes, carotid US reported as NL Unspecified essential hypertension since age 28 PAST SURGICAL HISTORY Procedure Laterality Date APPENDECTOMY CARDIAC CATH X--3 CATARACT EXT; EYEONICS IOL SYS CHOLECYSTECTOMY 1983 COLONOSCOPY FLX DX W/COLLJ SPEC WHEN PFRMD [facility] 2007 Colonoscopy COLONOSCOPY FLX DX W/COLLJ SPEC WHEN PFRMD 06/23/11 COLONOSCOPY FLX DX W/COLLJ SPEC WHEN PFRMD 06/08/16 Colonoscopy (MAC) COLONOSCOPY FLX DX W/COLLJ SPEC WHEN PFRMD 07/15/2019 DILATION & CURETTAGE DX&/THER NONOBSTETRIC five Dilation & curettage DXA BONE DENSITY, AXIAL MAST RAD W/PECTORAL MUSCLES AXILLARY LYMPH NODES 1978 double OOPHORECTOMY PARTIAL/TOTAL UNI/BI 1985 Oophorectomy RECONSTRUCTION ROTATOR CUFF AVULSION CHRONIC 2004 right REPAIR RECTOCELE SEPARATE PROCEDURE 1979 SMALL BOWEL 03/2015 MESENTERIC ISCHEMIA TOTAL ABDOMINAL HYSTERECT W/WO RMVL TUBE OVARY Hysterectomy, RAFIA VAGINAL HYSTERECTOMY UTERUS 250 GM/< 1968 Hysterectomy, vaginal YAG CAPSULOTOMY OD (RIGHT EYE) Right 02/28/2020 Dr. Kaminski ALLERGIES Benadryl [Diphenhydramine Hcl], Krystexxa [Pegloticase], Sulfur Dioxide, Talwin [Pentazocine Lactate], Valium [Diazepam], Advair Diskus [Fluticasone Propion-Salmeterol], Penicillins, Sulfa (Sulfonamide Antibiotics), Adhesive Tape (Rosins), and No Bp Or Venipunctures Left Arm [Other] MEDICATIONS Current Outpatient Medications Medication Sig clopidogrel (PLAVIX) 75 mg tablet haavjlgx-oihonneme-zvkhxpgjiqiete (CORTISPORIN) 3.5-10,000-1 mg/mL-unit/mL-% otic suspension Use 3 Drops in the right ear four times daily. (Patient not taking: Reported on 04/05/2022 ) aspirin, enteric coated (ASPIRIN, ENTERIC COATED) 81 mg EC tablet Take 1 tablet by mouth once daily. albuterol HFA (VENTOLIN HFA) 90 mcg/actuation inhaler Inhale 2 Puffs as instructed every 4 hours asneeded for wheezing/shortness of breath. ProAir RespiClick 90 mcg/actuation breath activated (albuterol sulfate) Inhale 2 Puffs as instructed every 4 hours as needed. predniSONE (DELTASONE) 5 mg tablet Take 2.5 mg by mouth once daily. From [facility]. montelukast (SINGULAIR) 10 mg tablet Take 1 tablet by mouth daily at bedtime. budesonide-formoterol (SYMBICORT) 160-4.5 mcg/actuation inhaler Inhale 2 Puffs as instructed twice daily. omeprazole (PRILOSEC) 40 mg capsule Take 1 capsule by mouth once daily. febuxostat (ULORIC) 40 mg tab Take 1 tablet by mouth once daily. spironolactone (ALDACTONE) 25 mg tablet Take 1 tablet by mouth once daily. losartan (COZAAR) 25 mg tablet Take 1 tablet by mouth once daily. albuterol (PROVENTIL) 2.5 mg /3 mL (0.083 %) nebulizer solution Use 3 mL via nebulizer every 6 hours as needed for Wheezing/Shortness of Breath. Use over 5-15minutes. torsemide (DEMADEX) 10 mg tablet Take 10 mg by mouth once daily. dipyridamole(PERSANTINE 75 MG TAB) Take one(1) tablet two(2) times daily. (Patient not taking: Takeone(1) tablet two(2) times daily. ) No current facility-administered medications for this visit. FAMILY HISTORY Problem Relation Age of Onset Cancer Mother throat, stomach, colon age 69 ? unclear primary by description Thyroid Mother Heart Father age 57 Hypertension Father Stroke Paternal Grandfather Stroke Paternal Grandmother Diabetes Brother Coronary Artery Disease Maternal Grandfather Cancer Maternal Grandmother pancreatic Social History Tobacco Use Smoking status: Never Smoker Smokeless tobacco: Never Used Vaping Use Vaping Use: Never used Substance Use Topics Alcohol use: No Drug use: No REVIEW OF SYSTEMS GENERAL: No weight loss, malaise or fevers/chills HEENT: Negative for frequent or significant headaches, No changes in hearing or vision. NECK: Negative for lumps, goiter, pain and significant neck swelling RESPIRATORY: Negative for cough, hemoptysis, wheezing, dyspnea or shortness of breath CARDIOVASCULAR: Negative for chest pain, leg swelling, orthopnea, or palpitations GI: + Diarrhea and distention : No history of dysuria, frequency or incontinence MUSCULOSKELETAL: Negative for joint pain or swelling. SKIN: Negative for lesions, rash, and itching ENDOCRINE: Negative for cold or heat intolerance, polyuria, polydipsia and goiter NEURO: No history of headaches, syncope, paralysis, seizures or tremors MOOD: Negative for depression, anxiety, or suicidal ideation. EXAM: BP 122/66 Pulse 76 Resp 20 Wt 64.4 kg (142 lb) SpO2 97% BMI 26.83 kg/m PHYSICAL EXAM: General Appearance: Well appearing, alert, in no acute distress, well-hydrated, well nourished.. Skin: Skin color, texture, turgor normal, no suspicious rashes or lesions. Head: Normocephalic, no masses, lesions, tenderness or abnormalities. Eyes: Anicteric sclera. Extraocular movements are intact. . Lungs: Lungs clear to auscultation. No wheezing, rhonchi, rales. Heart: RRR without murmur, gallop, or rubs. No ectopy. Abdomen: + Mild distention noted. Extremities: No deformities, skin discoloration, clubbing or cyanosis. Good capillary refill. +1 bilateral non-pitting edema to lower legs. Peripheral Pulses: Normal, Capillary refill <2secs, strong peripheral pulses, Pulses palpable. Neurologic: Gait normal. Sensation grossly intact. ASSESSMENT/PLAN: 1. Hospital discharge follow-up - ICD9: V67.59, ICD10: Z09 (primary diagnosis) - Improving since hospital discharge. - Discharge complicated with developing pneumonia. 2. Small bowel obstruction (HCC) - ICD9: 560.9, ICD10: K56.609 - Continue to eat diet as tolerated. - BM's regular but soft due to antibiotic use. 3. Congestive heart failure, unspecified HF chronicity, unspecified heart failure type (HCC) - ICD9: 428.0, ICD10: I50.9 - Continue with water restriction. - Get repeat labs in 1 week. - Keep up coming appointment with cardiology. - Continue to take all medication as prescribed. - COMP METABOLIC PANEL - NT PRO BNP 4. Bacterial pneumonia - ICD9: 482.9, ICD10: J15.9 - Finish antibiotics as ordered. - Continue to use probiotic. - Get repeat chest xray in 1 month. - XR CHEST 2V FRONTAL/LAT Follow-up in 1 month or sooner as needed Discussed treatment plan and patient voices understanding. Patient's questions answered appropriately. Medications and potential side effects were discussed and patient voices understanding. Kari Katz APRN.ARJUN This note was partially generated using Fjuul voice recognition system. Note was reviewed for accuracy. There may be minor misspellings or grammar miscues with Fjuul voice recognition. documented in this encounterPaul[facility]08[facility] History of Present illness Narrative* Lasha Sylvester MD - 04/18/2022 12:22 PM EDT [facility] Triage Note: Patient presents to the [facility] with complaint of chest pain. She has had bad pain or pressurein her mid upper chest with radiates to the back since last night. She assumed if she waited and was not after 1/2 hour it was not a heart attack. She says she was admitted to the hospital last week with congestive heart failure and small bowel obstruction. She is able to speak in full sentences. She agrees to have her drive her to [facility] ER. Get up and go is close to 10 seconds but ambulates to her vehicle unassisted. She was being checked in when the ER was notified to expect her arrival. documented in this encounterPaulding [facility] Hospital07-19-2022 Instructions* Patient Instructions* Jan Santana II, TERRI - 04/05/2022 11:49 AM EDT Assessment and Plan H43.393 Vitreous floaters of both eyes (primary encounter diagnosis) Comment: Vitreal floaters stable both eyes. Retinas flat and intact with no apparent retinal tear or traction. Discussed symptoms of retinal tear/detachment and if seen patient will return to clinic without delay. Discussed occasional photopsia as well. Recommend consult PCP and steam generating powerplant mechanic if photopsia continue as most likely due to cv causes. Z96.1 Pseudophakia of both eyes Comment: Posterior chamber intraocular lenses are well positioned and clear. H04.123 Chronically dry eyes, bilateral Comment: Recommend use of Systane Complete 1 gt OU up to qid as needed for relief of symptoms. Recommend Pataday 0.7% as needed for itching. H52.03 Hyperopia of both eyes H52.223 Regular astigmatism of both eyes Comment: Glasses power stable. I have confirmed and edited as necessary the relevant ophthalmic history, ROS, and the neuro exam findings as obtained by others. I have seen and examined Norma Donato. I have discussed the case and the management of this patient's care with the Resident/Fellow, if applicable. I also have reviewed and agree with the assessment and plan as stated above and agree withall of its relevant components. Jan Santana II, OD documented in this encounterPaulding [facility] Hospital07-19-2022 History of Present illness Narrative* Jan Santana II, OD - 04/05/2022 11:44 AM EDT Assessment and Plan H43.393 Vitreous floaters of both eyes (primary encounter diagnosis) Comment: Vitreal floaters stable both eyes. Retinas flat and intact with no apparent retinal tear or traction. Discussed symptoms of retinal tear/detachment and if seen patient will return to clinic without delay. Discussed occasional photopsia as well. Recommend consult PCP and steam generating powerplant mechanic if photopsia continue as most likely due to cv causes. Z96.1 Pseudophakia of both eyes Comment: Posterior chamber intraocular lenses are well positioned and clear. H04.123 Chronically dry eyes, bilateral Comment: Recommend use of Systane Complete 1 gt OU up to qid as needed for relief of symptoms. Recommend Pataday 0.7% as needed for itching. H52.03 Hyperopia of both eyes H52.223 Regular astigmatism of both eyes Comment: Glasses power stable. I have confirmed and edited as necessary the relevant ophthalmic history, ROS, and the neuro exam findings as obtained by others. I have seen and examined Ruth Donato. I have discussed the case and the management of this patient's care with the Resident/Fellow, if applicable. I also have reviewed and agree with the assessment and plan as stated above and agree withall of its relevant components. Jan Santana II, OD documented in this encounterPaulding County Hospital06-28-2022 History of Present illness Narrative* John Paul APRN.ONLINE MERCHANDISING SPECIALIST - 03/15/2022 6:05 PM EDT Subjective HPI HPI Ruth Donato is a 81 year old female who presents today for CC of intermittent right ear pain. This started 1 day ago. Has tried nothing for relief. Symptoms are worsened by nothing. Risk factorsright ear pain. Denies uri symptoms. Reports regular use of qtips. .Patient presents with: Ear Problem: onset x6 wks, denied pain with visit, reported decreased hearing (RT) PAST MEDICAL HISTORY Diagnosis Date Asthma CKD (chronic kidney disease) stage 3, GFR 30-59 ml/min (HCC) Congestive heart failure, unspecified 2002 Cardiology [facility] Diverticulosis of sigmoid External hemorrhoids without mention of complication Family history of malignant neoplasm of gastrointestinal tract Gastric polyps Gout Hiatal hernia History of breast cancer History of skin cancer History of uterine cancer cervical Internal hemorrhoids without mention of complication Iron deficiency anemia Kidney disease Osteopenia Restrictive cardiomyopathy (HCC) TIA (transient ischemic attack) right eye vision changes, carotid US reported as NL Unspecified essential hypertension since age 28 PAST SURGICAL HISTORY Procedure Laterality Date APPENDECTOMY CARDIAC CATH X--3 CATARACT EXT; EYEONICS IOL SYS CHOLECYSTECTOMY 1983 COLONOSCOPY FLX DX W/COLLJ SPEC WHEN PFRMD [facility] 2007 Colonoscopy COLONOSCOPY FLX DX W/COLLJ SPEC WHEN PFRMD 06/23/11 COLONOSCOPY FLX DX W/COLLJ SPEC WHEN PFRMD 06/08/16 Colonoscopy (MAC) COLONOSCOPY FLX DX W/COLLJ SPEC WHEN PFRMD 07/15/2019 DILATION & CURETTAGE DX&/THER NONOBSTETRIC five Dilation & curettage DXA BONE DENSITY, AXIAL MAST RAD W/PECTORAL MUSCLES AXILLARY LYMPH NODES 1978 double OOPHORECTOMY PARTIAL/TOTAL UNI/BI 1985 Oophorectomy RECONSTRUCTION ROTATOR CUFF AVULSION CHRONIC 2004 right REPAIR RECTOCELE SEPARATE PROCEDURE 1979 SMALL BOWEL 03/2015 MESENTERIC ISCHEMIA TOTAL ABDOMINAL HYSTERECT W/WO RMVL TUBE OVARY Hysterectomy, RAFIA VAGINAL HYSTERECTOMY UTERUS 250 GM/< 1968 Hysterectomy, vaginal YAG CAPSULOTOMY OD (RIGHT EYE) Right 02/28/2020 Dr. Kaminski ALLERGIES Benadryl [Diphenhydramine Hcl], Krystexxa [Pegloticase], Sulfur Dioxide, Talwin [Pentazocine Lactate], Valium [Diazepam], Advair Diskus [Fluticasone Propion-Salmeterol], Penicillins, Sulfa (Sulfonamide Antibiotics), Adhesive Tape (Rosins), and No Bp Or Venipunctures Left Arm [Other] MEDICATIONS aspirin, enteric coated (ASPIRIN, ENTERIC COATED) 81 mg EC tablet Take 1 tablet by mouth once daily. albuterol HFA (VENTOLIN HFA) 90 mcg/actuation inhaler Inhale 2 Puffs as instructed every 4 hours asneeded for wheezing/shortness of breath. ProAir RespiClick 90 mcg/actuation breath activated (albuterol sulfate) Inhale 2 Puffs as instructed every 4 hours as needed. predniSONE (DELTASONE) 5 mg tablet Take 2.5 mg by mouth once daily. From [facility]. montelukast (SINGULAIR) 10 mg tablet Take 1 tablet by mouth daily at bedtime. budesonide-formoterol (SYMBICORT) 160-4.5 mcg/actuation inhaler Inhale 2 Puffs as instructed twice daily. omeprazole (PRILOSEC) 40 mg capsule Take 1 capsule by mouth once daily. febuxostat (ULORIC) 40 mg tab Take 1 tablet by mouth once daily. spironolactone (ALDACTONE) 25 mg tablet Take 1 tablet by mouth once daily. losartan (COZAAR) 25 mg tablet Take 1 tablet by mouth once daily. albuterol (PROVENTIL) 2.5 mg /3 mL (0.083 %) nebulizer solution Use 3 mL via nebulizer every 6 hours as needed for Wheezing/Shortness of Breath. Use over 5-15minutes. torsemide (DEMADEX) 10 mg tablet Take 10 mg by mouth once daily. dipyridamole(PERSANTINE 75 MG TAB) Take one(1) tablet two(2) times daily. pagwylga-hkosenwpi-hnbcvmfsptefxd (CORTISPORIN) 3.5-10,000-1 mg/mL-unit/mL-% otic suspension Use 3 Drops in the right ear four times daily. FAMILY HISTORY Problem Relation Age of Onset Cancer Mother throat, stomach, colon age 69 ? unclear primary by description Thyroid Mother Heart Father age 57 Hypertension Father Stroke Paternal Grandfather Stroke Paternal Grandmother Diabetes Brother Coronary Artery Disease Maternal Grandfather Cancer Maternal Grandmother pancreatic Social History Tobacco Use Smoking status: Never Smoker Smokeless tobacco: Never Used Vaping Use Vaping Use: Never used Substance Use Topics Alcohol use: No Drug use: No ROS Objective Blood pressure 128/74, pulse 102, temperature 36.4 C (97.6 F), resp. rate 16, weight 64.6 kg (142 lb 6.4 oz), SpO2 99 %. Physical Exam Constitutional: General: She is not in acute distress. Appearance: She is not toxic-appearing or diaphoretic. HENT: Head: Normocephalic and atraumatic. Right Ear: Hearing and external ear normal. Left Ear: Hearing, tympanic membrane, ear canal and external ear normal. Ears: Comments: Initially unable to see right tm d/t deep cerumen impaction. Slight abrasion noted in base of canal. Procedure: provider/curette, MA/lavage After procedure right canal clear with slight bloody irritation noted where previous abrasion was. TM normal/intact. Pulmonary: Effort: Pulmonary effort is normal. No accessory muscle usage or respiratory distress. Neurological: Mental Status: She is alert and oriented to person, place, and time. ASSESSMENT/PLAN: 1. Impacted cerumen of right ear - ICD9: 380.4, ICD10: H61.21 (primary diagnosis) Successful lavage by MA, curette by provider. Scant blood noted in base of canal noted after procedure. There was an abrasion prior to procedure suspected d/t qtip usage Discouraged use of qtips F/u for continued/worsening s/s. 2. Irritation of external ear canal, right - ICD9: 380.89, ICD10: H61.891 Will cover with atb, f/u for continued/worsening s/s. - [id number]-[id number]-[id number] 3.5 MG-10,000 UNIT/ML-1 % EAR DROPS,SUSP John Paul APRN.ONLINE MERCHANDISING SPECIALIST documented in this encounterPaulding County Hospital06-28-2022 Evaluation + Plan note* Assessment & Plan Note - Geovanna Benites MD - 03/15/2022 2:44 PM EDT Associated Problem(s): CVA, old, disturbances of vision Patient with a history of an old CVA. She has been treated with aspirin and Persantine. She does not tolerate the Persantine due to feeling poorly for hours after she takes the dose. I will switch her Persantine to Plavix. After 6 weeks I will stop her aspirin. [id number] Miscellaneous Notes* Assessment & Plan Note - Geovanna Benites MD - 03/15/2022 2:44 PM EDTAssociated Problem(s): CVA, old, disturbances of vision Patient with a history of an old CVA. She has been treated with aspirin and Persantine. She does not tolerate the Persantine due to feeling poorly for hours after she takes the dose. I will switch her Persantine to Plavix. After 6 weeks I will stop her aspirin. * Assessment & Plan Note - Geovanna Benites MD - 03/15/2022 2:43 PM EDT Associated Problem(s): Hypertension, essential Well-controlled on medical therapy. Continue current medical regimen. * Assessment & Plan Note - Geovanna Benites MD - 03/15/2022 2:43 PM EDT Associated Problem(s): Takotsubo cardiomyopathy Patient with a history of Takotsubo stress-induced cardiomyopathy. That had resolved based on her last echo. See above. * Assessment & Plan Note - Geovanna Benites MD - 03/15/2022 2:42 PM EDT Associated Problem(s): Acute on chronic heart failure with preserved ejection fraction (HFpEF) ([facility]) Patient with acute on chronic heart failure with preserved ejection fraction. She currently is volume overloaded due to drinking excessive amounts of fluids. Her creatinine has ranged from 1.1-1.8. Idid recommend that she stop drinking excessive amounts of fluids for the next several days. She should call us on Monday. If she continues having symptoms we would double up on her Demadex over the weekend to see if her symptoms should improve. If they do we will try to isolate a target weight for her. I anticipate she probably have to settle for creatinine of 1.4 to keep her relatively asymptomatic from a cardiac standpoint. If she continues having shortness of breath we may need to reassess with an echo. I will see her back in 6-week follow-up. documented in this [id number] Evaluation + Plan note* Assessment & Plan Note - Geovanna Benites MD - 03/15/2022 2:43 PM EDT Associated Problem(s): Hypertension, essential Well-controlled on medical therapy. Continue current medical regimen. [id number] Evaluation + Plan note* Assessment & Plan Note - Geovanna Benites MD - 03/15/2022 2:43 PM EDTAssociated Problem(s): Takotsubo cardiomyopathy Patient with a history of Takotsubo stress-induced cardiomyopathy. That had resolved based on her last echo. See above. [id number] Evaluation + Plan note* Assessment & Plan Note - Geovanna Benites MD - 03/15/2022 2:42 PM EDTAssociated Problem(s): Acute on chronic heart failure with preserved ejection fraction (HFpEF) (HCC) Patient with acute on chronic heart failure with preserved ejection fraction. She currently is volume overloaded due to drinking excessive amounts of fluids. Her creatinine has ranged from 1.1-1.8. Idid recommend that she stop drinking excessive amounts of fluids for the next several days. She should call us on Monday. If she continues having symptoms we would double up on her Demadex over the weekend to see if her symptoms should improve. If they do we will try to isolate a target weight for her. I anticipate she probably have to settle for creatinine of 1.4 to keep her relatively asymptomatic from a cardiac standpoint. If she continues having shortness of breath we may need to reassess with an echo. I will see her back in 6-week follow-up. [id number] Instructions* Patient Instructions* Robina Mera RN - 03/15/2022 1:55 PM EDT STOP Persantine START Plaivix (Clopidogrel) 75 mg daily. Watch your fluids. Avoid salt and salty foods. Check daily weights and record. This should be done first thing in the morning after using the bathroom. Check in with Robina on Monday and let us know how your shortness of breath is after decrease in fluids. To reach Dr. Benites's Nurse Conductor/Brakeman Robina directly, please call [phone]. Please note thatthis voicemail is checked during normal business hours M-F from 8-4. It is not checked on weekends or holidays. The main office number is [phone] should you have problems during those times and need to speak with the top ironer physician. This is also the number you can [facility] The main fax number is [phone]. Main Office Address: [place] Office: [address] [facility] [address] [place] [address], [address] [place], [place] [id number] [place] [id number] documented in this [id number] History of Present illness Narrative* Geovanna Benites MD - 03/15/2022 1:45 PM EDT Interventional Cardiology Clinic Follow-up Heart & Vascular [facility] 03/15/2022 Geovanna Benites MD [address] [facility] 2nd Floor [facility] [id number] Patient: Ruth Donato Date of : 1940 (81 y.o.) PCP: Christopher Sandoval MD Assessment & Plan Acute on chronic heart failure with preserved ejection fraction (HFpEF) ([facility]) Patient with acute on chronic heart failure with preserved ejection fraction. She currently is volume overloaded due to drinking excessive amounts of fluids. Her creatinine has ranged from 1.1-1.8. Idid recommend that she stop drinking excessive amounts of fluids for the next several days. She should call us on Monday. If she continues having symptoms we would double up on her Demadex over the weekend to see if her symptoms should improve. If they do we will try to isolate a target weight for her. I anticipate she probably have to settle for creatinine of 1.4 to keep her relatively asymptomatic from a cardiac standpoint. If she continues having shortness of breath we may need to reassess with an echo. I will see her back in 6-week follow-up. Takotsubo cardiomyopathy Patient with a history of Takotsubo stress-induced cardiomyopathy. That had resolved based on her last echo. See above. Hypertension, essential Well-controlled on medical therapy. Continue current medical regimen. CVA, old, disturbances of vision Patient with a history of an old CVA. She has been treated with aspirin and Persantine. She does not tolerate the Persantine due to feeling poorly for hours after she takes the dose. I will switch her Persantine to Plavix. After 6 weeks I will stop her aspirin. Follow-up: Return in about 6 weeks (around 04/26/2022). Chief Complaint: Yearly follow-up. Subjective History of Present Illness: Ruth Donato is a 81 y.o. female with a history of Takotsubo cardiomyopathy, hypertension, diastolic dysfunction, renal insufficiency and history of pericardial effusion. Patient denies symptoms of angina. Patient has been instructed to drink 64 ounces of fluid due to creatinine of 1.4. Her creatinine has been as high as 1.8 in the past. Her creatinine now is 1.1. However since she has been drinking significant amounts of fluid she is now developed worsening lower extremity and shortness of breath. She also does complain of a cough. It appears that she is volume overloaded. Patient denies any symptoms of angina. She denies any lightheadedness or syncope. [id number] CAD 2008 carotid duplex-mild bilateral 03/01/2021-EF 61%. No valvular abnormalities. Objective Imaging: I independently reviewed the EKG and agree with the interpretation(s) with the following comments. 03/07/20221239-RUA-Yfmbc Rhythm WITHIN NORMAL LIMITS ECG 12 Lead Final Result by Geovanna Benites MD (03/15/2022 1346) Echocardiogram complete Final Result by Brea Jewell MD (03/01/2021 1118) Review of Systems: Review of systems performed by the medical supply technician, personally reviewed and viewable in the current patient encounter. Pertinent positive and negative findings detailed in HPI. HOME Medications: Current Outpatient Medications on File Prior to Visit Medication Sig albuterol (PROVENTIL) 2.5 mg/0.5 mL Nebu Take 2.5 mg by nebulization . albuterol 90 mcg/actuation inhaler Inhale 2 puffs as needed for wheezing . aspirin 81 MG EC tablet Take 81 mg by mouth daily . febuxostat (ULORIC) 40 mg tablet Take 40 mg by mouth daily . losartan (Cozaar) 25 MG tablet Take 1 (one) tablet (25 mg total) by mouth daily . montelukast (SINGULAIR) 10 mg tablet Take 10 mg by mouth nightly . nitrofurantoin, macrocrystal-monohydrate, (MACROBID) 100 MG capsule Take 100 mg by mouth as needed . omeprazole (PRILOSEC) 40 MG capsule Take 40 mg by mouth as needed . spironolactone (ALDACTONE) 25 MG tablet Take 1 (one) tablet (25 mg total) by mouth daily . Symbicort 160-4.5 mcg/actuation inhaler Inhale 2 puffs 2 (two) times a day . torsemide (DEMADEX) 10 MG tablet Take 1-2 tablets daily as needed for swelling or weight gain. . [DISCONTINUED] dipyridamole (PERSANTINE) 75 MG tablet Take 1 (one) tablet (75 mg total) by mouth 2 (two) times a day . No current facility-administered medications on file prior to visit. Vital Signs: BP 135/72 (BP Location: Right arm, Patient Position: Sitting) Pulse 70 Ht 5' 1 Wt 64.9 kg (143 lb) BMI 27.02 kg/m Physical Exam Neck: Vascular: No carotid bruit. Cardiovascular: Rate and Rhythm: Normal rate and regular rhythm. Heart sounds: No murmur heard. Pulmonary: Effort: Pulmonary effort is normal. Breath sounds: No wheezing or rales. Musculoskeletal: Right lower leg: Edema present. Left lower leg: Edema present. Comments: Mild bilateral lower extremity edema Labs: I personally reviewed and interpreted the labs documented below. No results found for: CHOL, LDLCALC, LDLDIRECT, TRIG, HDL Creatinine clearance cannot be calculated (No successful lab value found.) * Nella Sheth MA - 03/15/2022 1:30 PM EDT Construction Management Assistant: No documented in this [id number] History of Present illness Narrative* Brea Pandya Jr., - 03/10/2022 7:45 AM EDT Images from the original note were not included. History of Present Illness Krystexxa started 04/05/2021. Krystexxa had been helping and not bothering the patient. Krystexxa stopped due to elevated uric acid on Krystexxa. . Total time spent in this encounter was 35 minutes. All questions answered for patient and . Joint pain is that this summer has been real good - it is not all gone but it is better. Her back is the biggest thing. Tophi are bigger on R index finger and smaller on ring finger. Patient is here for a 6 Month F/U. Patient states that she is not having any pain today. Patient states that she had gout last month in her right foot big toe. Patient states her right index finger is getting worse, but her right ring finger is getting better. Review of Systems Constitutional: Negative. HENT: Negative. Eyes: Negative. Respiratory: Negative. Cardiovascular: Negative. Gastrointestinal: Negative. Endocrine: Negative. Genitourinary: Negative. Musculoskeletal: Positive for arthralgias and back pain. Skin: Tophi both hands Allergic/Immunologic: Negative. Neurological: Negative. Hematological: Negative. Psychiatric/Behavioral: Negative. Vitals: Height 1.588 m (5' 2.5 ), weight 66.2 kg (146 lb). Physical Exam Vitals and nursing note reviewed. Constitutional: Appearance: Normal appearance. HENT: Head: Normocephalic and atraumatic. Right Ear: External ear normal. Left Ear: External ear normal. Nose: Nose normal. Mouth/Throat: Comments: Mask Eyes: Extraocular Movements: Extraocular movements intact. Conjunctiva/sclera: Conjunctivae normal. Pupils: Pupils are equal, round, and reactive to light. Comments: Glasses Cardiovascular: Rate and Rhythm: Normal rate and regular rhythm. Pulses: Radial pulses are 2+ on the right side and 2+ on the left side. Heart sounds: Murmur heard. Systolic murmur is present with a grade of 2/6. Comments: Stockings B/L Pulmonary: Effort: Pulmonary effort is normal. Breath sounds: Normal breath sounds. Abdominal: General: Bowel sounds are normal. Palpations: Abdomen is soft. Musculoskeletal: Right shoulder: Decreased range of motion. Left shoulder: Decreased range of motion. Right upper arm: Normal. Left upper arm: Normal. Right elbow: Normal. Left elbow: Normal. Right forearm: Normal. Left forearm: Normal. Right wrist: Deformity present. Decreased range of motion. Left wrist: Deformity present. Right hand: Deformity present. Decreased range of motion. Decreased strength. Left hand: Deformity present. Decreased range of motion. Decreased strength. Arms: Cervical back: Neck supple. Right upper leg: Normal. Left upper leg: Normal. Right knee: Decreased range of motion. Left knee: Decreased range of motion. Right lower leg: Edema present. Left lower leg: Edema present. Right ankle: Decreased range of motion. Left ankle: Decreased range of motion. Legs: Skin: General: Skin is warm and dry. Comments: Tophi hands R thumb and R index Thin skin Neurological: Mental Status: She is alert and oriented to person, place, and time. Cranial Nerves: Cranial nerves are intact. Sensory: Sensation is intact. Motor: Weakness present. 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 Oriented to person, place, and time. Cranial Nerves CN II: Vision test: Glasses . CN III, IV, : Extraocular movements intact bilaterally. Pupils equal round and reactive to light bilaterally. Sensory Normal sensation. 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 Assessment and Plan Encounter Diagnoses Name Primary? 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 Time was spent with the patient today in education in re: to all their medical conditions. A complete H&P&ROS was obtained and is either in this note or in the EHR. Please do not hesitate to contact me with any questions or concerns re: this patient. Past History Past medical, surgical, family, and social histories have been reviewed and updated with the patient today and are located elsewhere in the medical record. 2. Thank you for allowing me to participate in the care of your patient. With your permission I would like to F/U with your patient. 3. G6PD level was normal at 271 4. Krystexxa stopped due to elevated uric acid times 2 5. Patient is on chronic ATB therapy PRN for UTI caused by intercourse 6. Patient given educational material on gout in the form of a pamphlet from the arthritis foundation. Patient should remain on Uloric life long. Would monitor CBC, LFT, Renal func, uric acid level every 6 - 12 months as long as patient on Uloric. Patient can take prednisone 5 mg 8 po q AM times one day decrease by one pill q day until off on a PRN basis any acute attack of gout. 7. uloric caused HTN - but patient is going to try again as that is not a typical side effect and now patient is tolerating Uloric 8. Allopurinol affected her kidneys and was stopped 9. Glucose is elevated at 123 and patient is going to F/U with PCP 10. Nephro F/U per Dr. Mchugh 11. Rx given for colchicine 0.6 1 pill a day can decrease to 1 pill every other day if diarrhea - patient declines 12. Patient on her own stopped Prednisone due to stomach upset and then stopped it again due to HTN. 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 Potassium was elevated at 5.2 and is now normal at 4.5 15. Uric acid was normal at 5.2 and still is at 4.5 16. 90 day supply on medications 17. Patient told can take tylenol 18. Rx given for uloric 40 mg a day 19. Cardiology F/U per Dr. Geovanna Benites 20. Lab on or about 08/26/2022 21. At patient's request will f/U with me in 6 months [facility] History of Present illness Narrative* Martha Smith LPN - 02/17/2022 1:14 PM EDT Patient presents for COVID booster. Denies any problems at this time. Tolerated injection well. Martha Smith LPN documented in this encounterPaul[facility]04-29-2022 Miscellaneous Notes* Telephone Encounter - Melanie Castellon RN - 01/14/2022 3:19 PM EDT Patient notified of results and provider's instructions. Patient verbalizes understanding. Melanie Castellon RN * Telephone Encounter - Keyonna Tolliver RN - 01/14/2022 9:24 AM EDT Left message for pt. to return call. Please inform of below and close encounter when pt. returns call. Thank you. Keyonna Tolliver RN * Telephone Encounter - Keyonna Tolliver RN - 01/14/2022 9:23 AM EDT ----- Message from Mona Bone sent at 01/14/2022 7:53 AM EDT ----- Please call patient to inform her that her xrays do not show any acute findings. documented in this encounterPaulding [facility]04-28-2022 History of Present illness Narrative* Mona Lizandro - 01/13/2022 12:00 PM EDT Images from the original note were not included. Initial Podiatric Office Visit: Chief Complaint: This 81 year old female who presents with chief complaint:b/l flatfoot HPI Patient presents to clinic for evaluation of b/l foot Patient has history of flatfoot and neuroma with bunion deformity. She was last seen in 2016 and was provided order for custom orthotics. The orthotics do help with her feet. The inserts are startingto wear down and she is interested in getting new orthotics. She has no other complaints. PAIN EVALUATION 01/13/2022 1131 Pain Level: 0 Pain Location: Foot-Left bilteral Description: Aching Duration Amount of Time: 3 Duration Units: Years Frequency: Intermittent Intervention/Comfort measure: Support surface Hemoglobin A1C (%) Date Value 10/23/2019 6.2 01/31/2019 5.9 08/15/2018 5.7 01/18/2018 5.8 06/02/2015 6.0 01/05/2015 6.1 PCP: Christopher Sandoval MD PAST MEDICAL HISTORY Diagnosis Date Asthma CKD (chronic kidney disease) stage 3, GFR 30-59 ml/min (HCC) Congestive heart failure, unspecified [facility] of sigmoid External hemorrhoids without mention of complication Family history of malignant neoplasm of gastrointestinal tract Gastric polyps Gout Hiatal hernia History of breast cancer History of skin cancer History of uterine cancer cervical Internal hemorrhoids without mention of complication Iron deficiency anemia Kidney disease Osteopenia Restrictive cardiomyopathy (HCC) TIA (transient ischemic attack) right eye vision changes, carotid US reported as NL Unspecified essential hypertension since age 28 Current Outpatient Medications Medication Sig aspirin, enteric coated (ASPIRIN, ENTERIC COATED) 81 mg EC tablet Take 1 tablet by mouth once daily. albuterol HFA (VENTOLIN HFA) 90 mcg/actuation inhaler Inhale 2 Puffs as instructed every 4 hours asneeded for wheezing/shortness of breath. ProAir RespiClick 90 mcg/actuation breath activated (albuterol sulfate) Inhale 2 Puffs as instructed every 4 hours as needed. predniSONE (DELTASONE) 5 mg tablet Take 2.5 mg by mouth once daily. From [facility]. montelukast (SINGULAIR) 10 mg tablet Take 1 tablet by mouth daily at bedtime. budesonide-formoterol (SYMBICORT) 160-4.5 mcg/actuation inhaler Inhale 2 Puffs as instructed twice daily. omeprazole (PRILOSEC) 40 mg capsule Take 1 capsule by mouth once daily. febuxostat (ULORIC) 40 mg tab Take 1 tablet by mouth once daily. spironolactone (ALDACTONE) 25 mg tablet Take 1 tablet by mouth once daily. losartan (COZAAR) 25 mg tablet Take 1 tablet by mouth once daily. albuterol (PROVENTIL) 2.5 mg /3 mL (0.083 %) nebulizer solution Use 3 mL via nebulizer every 6 hours as needed for Wheezing/Shortness of Breath. Use over 5-15minutes. torsemide (DEMADEX) 10 mg tablet Take 10 mg by mouth once daily. dipyridamole(PERSANTINE 75 MG TAB) Take one(1) tablet two(2) times daily. No current facility-administered medications for this visit. ALLERGIES Allergen Reactions Benadryl [Diphenhyd* Shortness of Breath short of breath Krystexxa [Peglotic* Other: See Comments Stopped due to elevated uric acid Sulfur Dioxide Other: See Comments headache Talwin [Pentazocine* Anaphylaxis Valium [Diazepam] Other: See Comments Seizure Advair Diskus [Flut* Mental Status Change Patient states she gets irritable and agitated but tolerates symbicort Penicillins Rash Sulfa (Sulfonamide * Rash Adhesive Tape (Xiomara* Contraindication-Medical Surgical No Bp Or Venipunctu* PAST SURGICAL HISTORY Procedure Laterality Date APPENDECTOMY CARDIAC CATH X--3 CATARACT EXT; EYEONICS IOL SYS CHOLECYSTECTOMY 1983 COLONOSCOPY FLX DX W/COLLJ SPEC WHEN PFRMD [facility] 2007 Colonoscopy COLONOSCOPY FLX DX W/COLLJ SPEC WHEN PFRMD 06/23/11 COLONOSCOPY FLX DX W/COLLJ SPEC WHEN PFRMD 06/08/16 Colonoscopy (MAC) COLONOSCOPY FLX DX W/COLLJ SPEC WHEN PFRMD 07/15/2019 DILATION & CURETTAGE DX&/THER NONOBSTETRIC five Dilation & curettage DXA BONE DENSITY, AXIAL MAST RAD W/PECTORAL MUSCLES AXILLARY LYMPH NODES 1978 double OOPHORECTOMY PARTIAL/TOTAL UNI/BI 1985 Oophorectomy RECONSTRUCTION ROTATOR CUFF AVULSION CHRONIC 2004 right REPAIR RECTOCELE SEPARATE PROCEDURE 1979 SMALL BOWEL 03/2015 MESENTERIC ISCHEMIA TOTAL ABDOMINAL HYSTERECT W/WO RMVL TUBE OVARY Hysterectomy, RAFIA VAGINAL HYSTERECTOMY UTERUS 250 GM/< 1968 Hysterectomy, vaginal YAG CAPSULOTOMY OD (RIGHT EYE) Right 02/28/2020 Dr. Kaminski FAMILY HISTORY Problem Relation Age of Onset Cancer Mother throat, stomach, colon age 69 ? unclear primary by description Thyroid Mother Heart Father age 57 Hypertension Father Stroke Paternal Grandfather Stroke Paternal Grandmother Diabetes Brother Coronary Artery Disease Maternal Grandfather Cancer Maternal Grandmother pancreatic Social History Tobacco Use Smoking status: Never Smoker Smokeless tobacco: Never Used Vaping Use Vaping Use: Never used Substance Use Topics Alcohol use: No Drug use: No REVIEW OF SYSTEMS GENERAL: Negative for Malaise, significant weight loss, fever RESPIRATORY: Negative for cough, wheezing and shortness of breath CARDIOVASCULAR: Negative for chest pain, leg swelling and palpitations GI: Negative for abdominal discomfort, blood in stools or black stools and change in bowel habits : Negative for dysuria, frequency and incontinence MUSCULOSKELETAL: Negative for joint pain or swelling, back pain, and muscle pain. SKIN: Negative for lesions, rash, and itching. HEMATOLOGY/LYMPHOLOGY Negative for prolonged bleeding, bruising easily, and swollen nodes. ENDOCRINE: Negative for cold or heat intolerance, polyuria, polydipsia and goiter. NEURO: negative Physical Exam: Constitutional: Pt is a well developed 81 year old female who is alert, oriented and cooperative Eyes: Following during examination. No redness or drainage. Respiratory: RR normal and nonlabored. Even breathing. No evidence of distress or shortness of breath. Psychology: Patient is engaged during conversation. Normal affect and mood. Does not appear depressed or anxious during encounter. Vascular: Dorsalis pedis and posterior tibial pulses palpable as b/l Capillary Fill time < 5 seconds to digits 1-5 b/l Skin temperature warm to warm proximal to distal b/l Hair growth present to digits Neurological: intact light touch/epicritic sensation b/l intact protective sensation no significant neurological deficits Dermatological: Nails 1-5 b/l appear thick, discolored, dystrophic. Webspaces clean and dry 1-4 b/l. Skin appears well hydrated and supple. good color, texture, turgor. No open lesions present. No callosities present. Musculoskeletal/Orthopaedic: Patient has no ain to palpation of b/l feet Foot type is pronated structurally AJ ROM is full with knee extended and flexed 1st MPJ is full when loaded and no pain or crepitus are noted with ROM. MTJ, STJ are full and free of pain and crepitus. +5/5 muscle strength dorsiflexion, plantarflexion, inversion, eversion b/l Radiographs: xrays reviewed. Flatfoot is noted. ASSESSMENT: (M76.829) Posterior tibial tendon dysfunction (primary encounter diagnosis) (B35.1) Onychomycosis PLAN: 1. History and physical examination performed. 2. XR reviewed with patient and interpreted today 3. Discussed flatoot. Her current orthotics appear to maintain support of medial longitduinal arch.Offered new orthotics. She elected to continue with current inserts. 4. Discussed dystrophic toenails. Discussed topical medication vs oral medication vs laser vs removal vs monitoring. Patient elected to monitor. 5. F/u prn Mona Bone DPM Podiatry [address] [facility] [address] Dept: [phone] Dept * Dinah Cunha LPN - 01/13/2022 11:31 AM EDT Patient presents with: Left Foot - New, Pain Right Foot - New, Pain AMB ROOMING INTAKE FLOWSHEET DATA Pain Pain Level: 0 Pain Location: Foot-Left (bilteral) Description: Aching Duration Amount of Time: 3 Duration Units: Years Frequency: Intermittent Intervention/Comfort measure: Support surface documented in this encounterPaul[facility]04-28-2022 History of Present illness Narrative* RT Jim(R) - 01/13/2022 11:00 AM EDT Radiology Service Progress Note PATIENT NAME: Ruth Donato DATE OF SERVICE: January 13, 2022 TIME: 10:55 AM PATIENT IDENTITY VERIFICATION COMPLETED USING TWO (2) IDENTIFIERS: Name and Date of confirmedby patient verbally. FALL SCREENING: Has the patient had 2 falls in the last year or 1 fall with injury or currently using an Ambulatory Assistive Device (Walker, Cane, Wheelchair, Crutches, etc.)? No PATIENT GENDER DATA: Female. status: : No status: NO. PATIENT RELEVANT IMPLANT DATA REVIEWED: Not Applicable RADIOLOGY DEPARTMENT: General X-ray: Exam(s) Completed: Lower Extremity X- Ray(s): Foot, Bilateral and Wt. Bearing PERIPHERAL IV DATA: Not applicable SIGNED BY: RT Jim(R) January 13, 2022 10:55 AM documented in this encounterPaulding [facility]04-14-2022 History of Present illness Narrative* Christopher Sandoval MD - 12/30/2021 4:00 PM EDT Chief Complaint Patient presents with: F/U 6 Month HPI Ruth Donato is a 80 year old female who presents here today for 6 month follow up. Pt here today for a 6 month follow up. She has multiple questions and issues she would like to address today. Pt follows with multiple Specialist. No bowel, Gi, or urinary problems. Follows with Gastro. Hx of small bowel obstruction in May 2021. GERD: Controlled with Prilosec 40 mg daily as needed. HTN & CHF: Does check BP at home, generally 124/70. Denies any chest pain or dizziness. Notes sob due to asthma. Taking Aldactone 25 mg BID and Losartan 25 mg daily. Follows with Wood Flooring Specialist at [facility]. Asthma: Reports asthma has been doing worse despite her current regimen of Symbicort, Albuterol fornebulizer prn, ProAir inhaler prn and Singular [address] Mchugh wants her to drink 64 oz daily,which makes her gain weight - 3 lbs, causing more difficulty for her to breathe. This office only prescribes her asthma medication. OA & Gout: Follows with Rheum, Dr. Pandya. Has pain and gout in both hands an feet. Is on Prednisone 2.5 mg prn, Uloric 40 mg daily once daily. Questions about a current flare, that been ongoing for the past few months and is having left heel pain. Has not talked to dr. Pandya as she see's him next month and figured she would discuss here on what she should do. Reports fevers at night for the past 3 weeks; she has had episodes liek this in the past that resolve on their own. Nephrology - Following with Nephrology, Dr. Mchugh with [facility] in [place]. He wants pt to drink at least 64 oz daily, which pt reports this is difficult for her and her asthma. Pt being seen for Stage 3b chronic kidney disease. Onc - Pt reports that GROMMET MAN no longer follows with her due to hysterectomy and b/l mastectomy. Discussed that she is OK with no routien checks for these. Pt also requesting mastectomy bra prescriptions and compression stockings. CVA - Takes Persantine 75 mg bid. Was in ER back in Aug 2021 for cellulitis of leg. Past medical history, appointments, medications, allergies reviewed. Previous Medical History PAST MEDICAL HISTORY Diagnosis Date Asthma CKD (chronic kidney disease) stage 3, GFR 30-59 ml/min (HCC) Congestive heart failure, unspecified 2002 Cardiology Geovanna Benites, [facility] Diverticulosis of sigmoid External hemorrhoids without mention of complication Family history of malignant neoplasm of gastrointestinal tract Gastric polyps Gout Hiatal hernia History of breast cancer History of skin cancer History of uterine cancer cervical Internal hemorrhoids without mention of complication Iron deficiency anemia Kidney disease Osteopenia Restrictive cardiomyopathy (HCC) TIA (transient ischemic attack) right eye vision changes, carotid US reported as NL Unspecified essential hypertension since age 28 Previous Surgical History PAST SURGICAL HISTORY Procedure Laterality Date APPENDECTOMY CARDIAC CATH X--3 CATARACT EXT; EYEONICS IOL SYS CHOLECYSTECTOMY 1983 COLONOSCOPY FLX DX W/COLLJ SPEC WHEN PFRMD [facility] 2007 Colonoscopy COLONOSCOPY FLX DX W/COLLJ SPEC WHEN PFRMD 06/23/11 COLONOSCOPY FLX DX W/COLLJ SPEC WHEN PFRMD 06/08/16 Colonoscopy (MAC) COLONOSCOPY FLX DX W/COLLJ SPEC WHEN PFRMD 07/15/2019 DILATION & CURETTAGE DX&/THER NONOBSTETRIC five Dilation & curettage DXA BONE DENSITY, AXIAL MAST RAD W/PECTORAL MUSCLES AXILLARY LYMPH NODES 1978 double OOPHORECTOMY PARTIAL/TOTAL UNI/BI 1985 Oophorectomy RECONSTRUCTION ROTATOR CUFF AVULSION CHRONIC 2004 right REPAIR RECTOCELE SEPARATE PROCEDURE 1979 SMALL BOWEL 03/2015 MESENTERIC ISCHEMIA TOTAL ABDOMINAL HYSTERECT W/WO RMVL TUBE OVARY Hysterectomy, RAFIA VAGINAL HYSTERECTOMY UTERUS 250 GM/< 1968 Hysterectomy, vaginal YAG CAPSULOTOMY OD (RIGHT EYE) Right 02/28/2020 Dr. Kaminski Family History FAMILY HISTORY Problem Relation Age of Onset Cancer Mother throat, stomach, colon age 69 ? unclear primary by description Thyroid Mother Heart Father age 57 Hypertension Father Stroke Paternal Grandfather Stroke Paternal Grandmother Diabetes Brother Coronary Artery Disease Maternal Grandfather Cancer Maternal Grandmother pancreatic Patient Allergies ALLERGIES Allergen Reactions Benadryl [Diphenhyd* Shortness of Breath short of breath Krystexxa [Peglotic* Other: See Comments Stopped due to elevated uric acid Sulfur Dioxide Other: See Comments headache Talwin [Pentazocine* Anaphylaxis Valium [Diazepam] Other: See Comments Seizure Advair Diskus [Flut* Mental Status Change Patient states she gets irritable and agitated but tolerates symbicort Penicillins Rash Sulfa (Sulfonamide * Rash Adhesive Tape (Xiomara* Contraindication-Medical Surgical No Bp Or Venipunctu* Pentazocine Other: See Comments Current Medications Current Outpatient Medications on File Prior to Visit Medication Sig albuterol HFA (VENTOLIN HFA) 90 mcg/actuation inhaler Inhale 2 Puffs as instructed every 4 hours asneeded for wheezing/shortness of breath. ProAir RespiClick 90 mcg/actuation breath activated (albuterol sulfate) Inhale 2 Puffs as instructed every 4 hours as needed. predniSONE (DELTASONE) 5 mg tablet Take 2.5 mg by mouth once daily. From [place]. montelukast (SINGULAIR) 10 mg tablet Take 1 tablet by mouth daily at bedtime. budesonide-formoterol (SYMBICORT) 160-4.5 mcg/actuation inhaler Inhale 2 Puffs as instructed twice daily. omeprazole (PRILOSEC) 40 mg capsule Take 1 capsule by mouth once daily. febuxostat (ULORIC) 40 mg tab Take 1 tablet by mouth once daily. spironolactone (ALDACTONE) 25 mg tablet Take 1 tablet by mouth once daily. losartan (COZAAR) 25 mg tablet Take 1 tablet by mouth once daily. albuterol (PROVENTIL) 2.5 mg /3 mL (0.083 %) nebulizer solution Use 3 mL via nebulizer every 6 hours as needed for Wheezing/Shortness of Breath. Use over 5-15minutes. torsemide (DEMADEX) 10 mg tablet Take 10 mg by mouth once daily. dipyridamole(PERSANTINE 75 MG TAB) Take one(1) tablet two(2) times daily. No current facility-administered medications on file prior to visit. Social History Social History Tobacco Use Smoking status: Never Smoker Smokeless tobacco: Never Used Vaping Use Vaping Use: Never used Substance Use Topics Alcohol use: No Drug use: No EXAM: BP 134/70 (BP Site: Right Arm, BP Position: Sitting, BP Cuff Size: Regular Adult) Pulse 64 Resp16 Wt 65 kg (143 lb 6.4 oz) BMI 27.10 kg/m General Appearance: Well appearing, alert, in no acute distress, well-hydrated, well nourished... Health Maintenance List SHINGRIX VACCINE(3 of 3) due on 09/19/2019 ADVANCE DIRECTIVE DISCUSSION Never done DIABETES SCREEN due on 04/07/2024 DTAP,TDAP,TD(2 - Td or Tdap) due on 07/24/2030 SPIROMETRY Completed INFLUENZA Completed PNEUMOVAX AGE 65 AND OVER WITH 5YR LOOKBACK Completed COVID-19 VACCINE Completed BONE DENSITY Addressed MENINGOCOCCAL CONJUGATE Aged Out Data reviewed none ASSESSMENT/PLAN: 1. Hypertensive heart disease with heart failure and stage 3 chronic kidney disease, unspecified heart failure type, unspecified whether stage 3a or 3b CKD (HCC) - ICD9: 404.91, 585.3, ICD10: I13.0, N18.30 (primary diagnosis) - good control - Continue current medication(s) - Recommended regular aerobic exercise. - Recommend home blood pressure monitoring, to bring results in on next visit - Goal of BP <140/90 2. Congestive heart failure, unspecified HF chronicity, unspecified heart failure type (HCC) - ICD9: 428.0, ICD10: I50.9 Stable May try modulating water intake slightly - COMPRESSION STOCKINGS 3. Moderate persistent asthma without complication - ICD9: 493.90, ICD10: J45.40 Mild persistent Asthma stable - Continue current meds 4. History of malignant neoplasm of breast - ICD9: V10.3, ICD10: Z85.3 - MASTECTOMY BRA 5. History of bilateral mastectomy - ICD9: V45.71, ICD10: Z90.13 - MASTECTOMY BRA 6. Gout with manifestations - ICD9: 274.89, ICD10: M10.9 Follow with Rheum Follow up in 6 months Medical Decision Making: Problems: Moderate: 2+ stable chronic illnesses Risk: Moderate: Drug management Medical Decision Making Level: 4 - Moderate Christopher Sandoval MD documented in this encounterPaulding [facility]04-14-[facility]22 Evaluation note* Diagnosis Hypertensive heart disease with heart failure and stage 3 chronic kidney disease, unspecified heart failure type, unspecified whether stage 3a or 3b CKD (HCC)- Primary Congestive heart failure, unspecified HF chronicity, unspecified heart failure type (HCC) Moderate persistent asthma without complication Unspecified asthma History of malignant neoplasm of breast Personal history of malignant neoplasm of breast History of bilateral mastectomy Acquired absence of breast and nipple Gout with manifestations Gout with other specified manifestations documented in this encounter [facility]04[facility] History of Present illness Narrative* Ivett Mchugh MD - 12/29/2021 11:00 AM EDT DAILY PROGRESS NOTE Admit Date: (Not on file) Date of Evaluation: 1:30 AM [facility] @[facility]@ IMPRESSION AND PLAN: 80 y/o female with history of CVA, CHF, GERD, asthma, gout and CKD III is here for CKD care. 1) CKD IIIB: Likely secondary to CHD and CAD Cr 1.46 -> 1.44 -> 1.11 UA disclosed small blood. Renal US disclosed cortical lobulation and scarring of the mildly atrophic kidneys without hydronephrosis on either side. Continue with torsemide 10mg PO Qday. She has asthma which may contribute to her SOB. May need periodic steroid when flares. Will get renal panel. 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 Uric acid 11.2 -> 4.6 She is on uloric 3) Chronic normocytic anemia: H and H 11.8 -> 12.3 -> 12.6 and 35.1 -> 37.7 -> 37.6 Last colonoscopy 2019 Will get CBC. SUBJECTIVE: Patient seen and examined. Chart, medications, labs reviewed. Appointment on 12/23/2021 Component Date Value Ref Range Status GLUCOSE 12/23/2021 114 (A) 70 - 100 MG/DL Final Comment: NORMAL <100 mg/dL PREDIABETES 101-126 mg/dL DIABETES 126 mg/dL or higher BUN 12/23/2021 47 (A) 7 - 20 MG/DL Final CREATININE SERUM 12/23/2021 1.11 (A) 0.52 - 1.04 MG/DL Final SODIUM 12/23/2021 139 136 - 145 MMOL/L Final POTASSIUM 12/23/2021 4.8 3.5 - 5.1 MMOL/L Final CHLORIDE 12/23/2021 102 98 - 107 MMOL/L Final CARBON DIOXIDE (CO2) 12/23/2021 24 22 - 30 MMOL/L Final ALBUMIN 12/23/2021 4.2 3.5 - 5.0 G/dl Final CALCIUM 12/23/2021 9.6 8.4 - 10.2 MG/DL Final PHOSPHORUS 12/23/2021 4.1 2.5 - 4.5 MG/DL Final ESTIMATED GFR, NON AMER 12/23/2021 50 ml/min/1.73sq.m Final ESTIMATED GFR, 12/23/2021 61 ml/min/1.73sq.m Final GFR COMMENT 12/23/2021 Average GFR for 70+ years old = 75. Final Comment: Chronic Kidney disease, GFR = <60. Kidney failure, GFR = <15. The GFR estimate is not adjusted for extreme body surface area or acute process, nor has it been validated for women or ethnic groups other than and . WBC (WHITE BLOOD COUNT) 12/23/2021 6.7 3.6 - 11.0 10*3/uL Final RBC 12/23/2021 4.10 4.0 - 5.4 10*6/uL Final HEMOGLOBIN (HGB) 12/23/2021 12.6 12.0 - 16.0 G/DL Final HEMATOCRIT (HCT) 12/23/2021 37.6 36.0 - 48.0 % Final MEAN CELL VOLUME 12/23/2021 91.7 80.0 - 100.0 FL Final Mean Cell HGB 12/23/2021 30.8 26.0 - 35.0 PG Final MEAN CELL HGB CONCENTRATION 12/23/2021 33.6 27.0 - 37.0 G/DL Final RBC DISTRIBUTION 12/23/2021 16.0 (A) 11.5 - 14.5 % Final PLATELET COUNT 12/23/2021 249 130.0 - 400.0 10*3/uL Final MEAN PLATELET VOLUME 12/23/2021 7.1 (A) 7.4 - 11.0 FL Final DIFFERENTIAL TYPE 12/23/2021 AUTO DIFF % Final NEUTROPHILS 12/23/2021 75.4 (A) 37.0 - 75.0 % Final LYMPHOCYTE 12/23/2021 15.1 (A) 20.0 - 55.0 % Final MONOCYTE % 12/23/2021 8.1 0.0 - 10.0 % Final EOSINOPHIL % 12/23/2021 1.0 0.0 - 11.0 % Final BASOPHIL % 12/23/2021 0.4 0.0 - 2.0 % Final Absolute Neutrophil Count 12/23/2021 5.0 1.4 - 6.5 10*3/uL Final LYMPHOCYTES, ABSOLUTE 12/23/2021 1.00 (A) 1.2 - 3.4 10*3/uL Final MONOCYTES, ABSOLUTE 12/23/2021 0.5 0.0 - 0.7 10*3/uL Final ABSOLUTE EOSINOPHIL COUNT 12/23/2021 0.10 0.0 - 0.7 10*3/uL Final ABSOLUTE BASOPHIL COUNT 12/23/2021 0.0 0.0 - 0.2 10*3/uL Final URIC ACID 12/23/2021 4.6 2.5 - 6.2 MG/DL Final MAGNESIUM 12/23/2021 2.6 (A) 1.6 - 2.3 MG/DL Final COLOR, URINE 12/23/2021 YELLOW YELLOW Final APPEARANCE, URINE 12/23/2021 CLEAR CLEAR Final Specific [place], Urine 12/23/2021 1.010 1.010 - 1.025 Final PH URINE 12/23/2021 6.0 5.0 - 7.0 Final PROTEIN, URINE 12/23/2021 NEGATIVE NEGATIVE mg/dl Final GLUCOSE, URINE 12/23/2021 NEGATIVE NEGATIVE mg/dl Final KETONES, URINE 12/23/2021 NEGATIVE NEGATIVE mg/dl Final BILIRUBIN, URINE 12/23/2021 NEGATIVE NEGATIVE Final BLOOD, URINE DIPSTICK 12/23/2021 TRACE-INTACT (A) NEGATIVE Final NITRITES, URINE 12/23/2021 NEGATIVE NEGATIVE Final UROBILINOGEN, URINE 12/23/2021 0.2 0.2 - 1.0 E.U./dL Final LEUKOCYTE ESTERASE, URINE 12/23/2021 SMALL (A) NEGATIVE Final SODIUM, URINE RANDOM 12/23/2021 14 MMOL/L Final WBC, URINE 12/23/2021 1 TO 5 NEGATIVE /HPF Final RBC, URINE 12/23/2021 1 TO 5 NEGATIVE /HPF Final Epithelial Cells UA 12/23/2021 1 TO 5 /HPF Final Mucus 12/23/2021 NEGATIVE NEGATIVE Final BACTERIA, URINE 12/23/2021 TRACE (A) NEGATIVE Final CRYSTALS, URINE 12/23/2021 NONE NONE Final CASTS, URINE 12/23/2021 NONE NONE /LPF Final COMMENT, URINE 12/23/2021 REFLEX CULTURE PER ESTABLISHED CRITERIA. Final SPECIMEN DESCRIPTION 12/23/2021 URINE - OTHER Final UA Dipstick 12/23/2021 NITRITE NEGATIVE Final LEUKOCYTE POSITIVE RESULT-CULT 12/23/2021 NO PATHOGENS ISOLATED Final Testing performed at [place], [place] [address] REPORT STATUS 12/23/2021 12/25/2021 Final FINAL LABS [facility] @[email or web address]@ [facility] @[email or web address]@ [facility] 7([facility]) @[facility]@ Labs-[facility] WBC (WHITE BLOOD COUNT) Date Value Ref Range Status 12/23/2021 6.7 3.6 - 11.0 10*3/uL Final 08/31/2021 6.0 3.6 - 11.0 10*3/uL Final 07/15/2021 7.0 3.6 - 11.0 10*3/uL Final HEMOGLOBIN (HGB) Date Value Ref Range Status 12/23/2021 12.6 12.0 - 16.0 G/DL Final 08/31/2021 12.3 12.0 - 16.0 G/DL Final 07/15/2021 12.3 12.0 - 16.0 G/DL Final HEMATOCRIT (HCT) Date Value Ref Range Status 12/23/2021 37.6 36.0 - 48.0 % Final 08/31/2021 37.7 36.0 - 48.0 % Final 07/15/2021 37.1 36.0 - 48.0 % Final PLATELET COUNT Date Value Ref Range Status 12/23/2021 249 130.0 - 400.0 10*3/uL Final 08/31/2021 240 130.0 - 400.0 10*3/uL Final 07/15/2021 273 130.0 - 400.0 10*3/uL Final SODIUM Date Value Ref Range Status 12/23/2021 139 136 - 145 MMOL/L Final 08/31/2021 137 136 - 145 MMOL/L Final 07/15/2021 139 136 - 145 MMOL/L Final CHLORIDE Date Value Ref Range Status 12/23/2021 102 98 - 107 MMOL/L Final 08/31/2021 101 98 - 107 MMOL/L Final 07/15/2021 102 98 - 107 MMOL/L Final BUN Date Value Ref Range Status 12/23/2021 47 (H) 7 - 20 MG/DL Final 08/31/2021 45 (H) 7 - 20 MG/DL Final 07/15/2021 48 (H) 7 - 20 MG/DL Final POTASSIUM Date Value Ref Range Status 12/23/2021 4.8 3.5 - 5.1 MMOL/L Final 08/31/2021 4.8 3.5 - 5.1 MMOL/L Final 07/15/2021 4.5 3.5 - 5.1 MMOL/L Final CREATININE SERUM Date Value Ref Range Status 12/23/2021 1.11 (H) 0.52 - 1.04 MG/DL Final 08/31/2021 1.44 (H) 0.52 - 1.04 MG/DL Final 07/15/2021 1.51 (H) 0.52 - 1.04 MG/DL Final GLUCOSE Date Value Ref Range Status 12/23/2021 114 (H) 70 - 100 MG/DL Final Comment: NORMAL <100 mg/dL PREDIABETES 101-126 mg/dL DIABETES 126 mg/dL or higher 08/31/2021 102 (H) 70 - 100 MG/DL Final Comment: NORMAL <100 mg/dL PREDIABETES 101-126 mg/dL DIABETES 126 mg/dL or higher 07/15/2021 110 (H) 70 - 100 MG/DL Final Comment: NORMAL <100 mg/dL PREDIABETES 101-126 mg/dL DIABETES 126 mg/dL or higher PROTEIN, TOTAL Date Value Ref Range Status 03/29/2021 6.7 Final Comment: Reference range: 6.0 to 8.5 Unit: g/dL ALBUMIN Date Value Ref Range Status 12/23/2021 4.2 3.5 - 5.0 G/dl Final 08/31/2021 3.8 3.5 - 5.0 G/dl Final 07/15/2021 4.1 3.5 - 5.0 G/dl Final AST Date Value Ref Range Status 05/19/2021 21 15 - 41 IU/L Final ALT Date Value Ref Range Status 05/19/2021 21 14 - 54 IU/L Final CALCIUM Date Value Ref Range Status 12/23/2021 9.6 8.4 - 10.2 MG/DL Final 08/31/2021 9.7 8.4 - 10.2 MG/DL Final 07/15/2021 9.5 8.4 - 10.2 MG/DL Final PHOSPHORUS Date Value Ref Range Status 12/23/2021 4.1 2.5 - 4.5 MG/DL Final 08/31/2021 4.4 2.5 - 4.5 MG/DL Final 07/15/2021 4.1 2.5 - 4.5 MG/DL Final MAGNESIUM Date Value Ref Range Status 12/23/2021 2.6 (H) 1.6 - 2.3 MG/DL Final 07/15/2021 2.5 (H) 1.6 - 2.3 MG/DL Final Lab Results Component Value Date CREATURINE 57.7 07/21/2021 CREATSERUM 1.11 (H) 12/23/2021 BUN 47 (H) 12/23/2021 SODIUM 139 12/23/2021 POTASSIUM 4.8 12/23/2021 CHLORIDE 102 12/23/2021 CO2 24 12/23/2021 ROS: Constitution: No fever, no chill HEENT: No headache, no sinus issues CV: No chest pain, no palpitation Lung: No cough, No SOB Abd: No diarrhea, no constipation Neuro: No seizure, no loss of consciousness Heme: No bleeding, no bruise PHYSICAL EXAM: Wt Readings from Last 3 Encounters: 12/29/21 65.4 kg (144 lb 1.6 oz) 09/02/21 65.1 kg (143 lb 8 oz) 07/30/21 64.9 kg (143 lb) Temp Readings from Last 3 Encounters: 06/14/21 98 F (36.7 C) (Temporal) 05/07/21 98.7 F (37.1 C) (Temporal) 04/28/21 97.2 F (36.2 C) BP Readings from Last 3 Encounters: 12/29/21 125/70 09/02/21 128/60 07/30/21 122/64 Pulse Readings from Last 3 Encounters: 12/29/21 75 09/02/21 78 07/30/21 79 Gen: NAD, lying in bed, conversant HEENT: Atraumatic, PERRLA, moist membrane CV: RRR, nl S1 and S2, no m/g/r Lung: CTAB, no wheezing, no crackle Abd: +BS, nontender, no distended Ext: No rash, no clubbing, no cyanosis. No edema. Neuro: CNII-XII grossly intact, 5/5 strength, normal tone Skin: Warm and dry [facility] Telephone encounter Note* Telephone Encounter - Robina Mera RN - 12/23/2021 2:17 PM EDT Pharmacy requesting refill. Upcoming OV Med routed to Dr. Benites to fill. Will send to [facility] per request. [id number] Miscellaneous Notes* Telephone Encounter - Robina Mera RN - 12/23/2021 2:17 PM EDT Pharmacy requesting refill. Upcoming OV Med routed to Dr. Benites to fill. Will send to [facility] per request. documented in this [id number] Miscellaneous Notes* Telephone Encounter - Robina Mera RN - 06/04/2021 3:24 PM EDT Pharmacy requesting refill. Last office visit 02/[address] Benites to fill. Will send to [facility] per request. documented in this [id number] History of Present illness Narrative* Alex Carrillo RN - 05/07/2021 12:00 PM EDT 1616 - Pt denies and infusion reaction symptoms and none noted by this nurse. Denies needs or c/o. Discharged ambulatory in stable condition. Verbalizes understanding of instructions. * Ynes Gibbons RN - 05/07/2021 12:00 PM EDT 1155: Patient arrives to clinic ambulatory for Krystexxa IV. Accompanied by . documented [facility] this [facility] History of Present illness Narrative* Brea Pandya Jr., - 04/28/2021 11:45 AM EDT Images from the original note were not included. History of Present Illness Krystexxa started 04/05/2021. Krystexxa is helping and not bothering the patient. Presence of Pain: complains of pain/discomfort Pain Location: foot, right Select Pain Scale: DVPRS (Ad Hoc Labs and Veterans Pain Rating Scale) (Adult- Cognitively Intact) DVPRS: Rest: 4- mild pain DVPRS: Activity: 4- mild pain Select Pain Scale: DVPRS (Defense and Veterans Pain Rating Scale) (Adult- Cognitively Intact) Pain Frequency: constant Pain Quality: aching. Total time spent in this encounter was 27 minutes. Energy level is good. Really good as a matter of fact. Joint pain is she called my office to see if she could take 1/2 a prednisone as if pushes her blood pressure up and she has CHF. Tophi have improved to some degree. Patient is here for a 2 week F/U. She states that with the prednisone she is getting some relief. She states she cut the prednisone in half . Patient states she is having right foot pain because she does have gout in her right foot. Patient states that she is doing about the same since her last appointment. Review of Systems Constitutional: Negative. HENT: Negative. Eyes: Negative. Respiratory: Negative. Cardiovascular: Negative. Gastrointestinal: Negative. Endocrine: Negative. Genitourinary: Negative. Musculoskeletal: Positive for arthralgias. Skin: Tophi both hands Allergic/Immunologic: Negative. Neurological: Negative. Hematological: Negative. Psychiatric/Behavioral: Negative. Vitals: Blood pressure 122/64, pulse 66, temperature 97.2 F (36.2 C), height 1.588 m (5' 2.5 ), weight 58.1 kg (128 lb), SpO2 93 %. Physical Exam Vitals and nursing note reviewed. Constitutional: Appearance: Normal appearance. HENT: Head: Normocephalic and atraumatic. Right Ear: External ear normal. Left Ear: External ear normal. Nose: Nose normal. Mouth/Throat: Comments: Mask Eyes: Extraocular Movements: Extraocular movements intact. Conjunctiva/sclera: Conjunctivae normal. Pupils: Pupils are equal, round, and reactive to light. Comments: Glasses Cardiovascular: Rate and Rhythm: Normal rate and regular rhythm. Pulses: Radial pulses are 2+ on the right side and 2+ on the left side. Heart sounds: Normal heart sounds. Pulmonary: Effort: Pulmonary effort is normal. Breath sounds: Normal breath sounds. Abdominal: General: Bowel sounds are normal. Palpations: Abdomen is soft. Musculoskeletal: Right shoulder: Decreased range of motion. Left shoulder: Decreased range of motion. Right upper arm: Normal. Left upper arm: Normal. Right elbow: Normal. Left elbow: Normal. Right forearm: Normal. Left forearm: Normal. Right wrist: Deformity and tenderness present. Decreased range of motion. Left wrist: Deformity and tenderness present. Decreased range of motion. Right hand: Deformity, tenderness and bony tenderness present. Decreased range of motion. Decreasedstrength. Left hand: Deformity, tenderness and bony tenderness present. Decreased range of motion. Decreased strength. Arms: Cervical back: Neck supple. Right upper leg: Normal. Left upper leg: Normal. Right knee: Decreased range of motion. Left knee: Decreased range of motion. Right lower le+ Edema present. Left lower le+ Edema present. Right ankle: Decreased range of motion. Left ankle: Decreased range of motion. Legs: Skin: General: Skin is warm and dry. Comments: Tophi hands Neurological: Mental Status: She is alert and oriented to person, place, and time. Cranial Nerves: Cranial nerves are intact. Sensory: Sensation is intact. Motor: Weakness present. 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 Behavior: Behavior normal. Thought Content: Thought content normal. Judgment: Judgment normal. Neurological Exam Mental Status Alert. Cranial Nerves CN II: Vision test: Glasses . CN III, IV, : Extraocular movements intact bilaterally. Pupils equal round and reactive to light bilaterally. Assessment and Plan Encounter Diagnoses Name Primary? 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 Time was spent with the patient today in education in re: to all their medical conditions. A complete H&P&ROS was obtained and is either in this note or in the EHR. Please do not hesitate to contact me with any questions or concerns re: this patient. Past History Past medical, surgical, family, and social histories have been reviewed and updated with the patient today and are located elsewhere in the medical record. 2. Thank you for allowing me to participate in the care of your patient. With your permission I would like to F/U with your patient. 3. G6PD level is normal at 271 4. Lab on or about 07/12/2021 5. Patient is on chronic ATB therapy PRN for UTI caused by intercourse 6. Patient given educational material on gout in the form of a pamphlet from the arthritis foundation. Patient can take prednisone 5 mg 8 po q AM times one day decrease by one pill q day until off juan carlos PRN basis any acute attack of gout. 7. 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 F/U with me in 3 months 10. Uric acid 2 days prior to Krystexxa - order given and patient has 11. Rx given for colchicine 0.6 1 pill a day can decrease to 1 pill every other day if diarrhea - patient declines 12. 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 Potassium was elevated at 5.2 15. Uric acid was elevated at 9.7 and is now normal at 1.3 16. Patient is taking Prednisone 5 mg 1/2 pill a day 17. Call if need Rx's documented in this [facility]08-06-2021 History of Present illness Narrative* Ynes Gibbons RN - 04/23/2021 12:00 PM EDT 1151: Patient arrives to clinic ambulatory for IV Krystexxa. 1415: Patient states she is having acid reflux that is causing chest and back discomfort. Patient states this happens often at home and she eats a little ice cream or drinks buttermilk. Ice cream given to patient. 1430: Patient states that discomfort is relieved immediately-is now feeling much better. documented in this [facility]08-04-2021 Miscellaneous Notes* Telephone Encounter - Robina Mera RN - 04/21/2021 11:51 AM EDT Patient has been on her infusion for GOUT (Krystexxa) and they have also started her on Prednisone 10 mg that she may have to take skilled nursing. Her blood pressure has gone up to 130-140/ 80's. She has started to take a full Losartan (25mg) every day. She has also noticed her wt has gone up a little and seems she needs to use a whole water pill every 2-3 days. Adv patient this is fine - continue w/ the full tablet of Losartan and monitor blood pressure's over the next 2-3 weeks and let us know. Ok to use extra water pill PRN - will call in new scripts for both. She is about due for labs due to the aldactone. Will mail lab slip for check in 2 weeks with the inc use of the water pills. She is agreeable. documented in this [id number] History of Present illness Narrative* Sadie Huynh RN - 04/09/2021 12:00 PM EDT tolerated her infusion without incident. She stayed for one hour post infusion for observation. No infusion reaction observed. She states that she feels well . She is stable and ambulatory at discharge, accompanied by her . [facility] Miscellaneous Notes* Assessment & Plan Note - Geovanna Benites MD - 03/01/2021 12:04 PM EDT Associated Problem(s): Diastolic dysfunction Patient with a history of diastolic dysfunction. She does have lower extremity edema that is due toa combination of diastolic dysfunction and venous insufficiency. We did recommend support stockings. She also has a mildly elevated potassium of 5.2. She has a history of renal insufficiency with higher doses of diuretics. I am going to cut back on her Aldactone to 25 mg a day. And continue her Demadex. If she continues having worsening lower extreme edema may need to increase the dose of Demadex. I will need to check a Chem-7 every 3 months. * Assessment & Plan Note - Geovanna Benites MD - 03/01/2021 12:04 PM EDT Associated Problem(s): Hypertension, essential Blood pressures under good control. Continue current medical therapy * Assessment & Plan Note - Geovanna Benites MD - 03/01/2021 12:04 PM EDT Associated Problem(s): Takotsubo cardiomyopathy Patient with a history of stress-induced cardiomyopathy. This is resolved. documented in this [id number] Instructions* Patient Instructions* Heather Verma RN - 03/01/2021 11:52 AM EDT Try compression stockings, knee high, 10-20mmHg: this may help with swelling Limit sodium to <2000mg daily Decrease Spironolactone to once daily dosing Check blood work every 3 months (standing order) documented in this [id number] History of Present illness Narrative* Nella Sheth MA - 03/01/2021 11:32 AM EDT Review of Systems Constitutional: Negative for diaphoresis, malaise/fatigue, weight gain and weight loss. HENT: Negative for hearing loss, nosebleeds and tinnitus. Eyes: Negative for blurred vision and visual disturbance. Cardiovascular: Positive for dyspnea on exertion and leg swelling. Negative for chest pain, claudication, cyanosis, irregular heartbeat, near-syncope, orthopnea, palpitations, paroxysmal nocturnal dyspnea and syncope. Respiratory: Negative for hemoptysis, shortness of breath and snoring. Endocrine: Negative for cold intolerance and heat intolerance. Hematologic/Lymphatic: Does not bruise/bleed easily. Skin: Negative for flushing, poor wound healing and rash. Musculoskeletal: Negative for back pain, muscle weakness and myalgias. Gastrointestinal: Negative for abdominal pain, change in bowel habit, melena, nausea and vomiting. Genitourinary: Negative for decreased libido and hematuria. Neurological: Negative for loss of balance and numbness. Psychiatric/Behavioral: Negative for memory loss. The patient is not nervous/anxious. * Geovanna Benites MD - 03/01/2021 10:26 AM EDT Interventional Cardiology Clinic Follow-up Heart & Vascular [facility] 03/01/2021 Geovanna Benites MD [address] [id number] Patient: Ruth Donato Date of : 1940 (80 y.o.) PCP: Christopher Sandoval MD Assessment & Plan Takotsubo cardiomyopathy Patient with a history of stress-induced cardiomyopathy. This is resolved. Hypertension, essential Blood pressures under good control. Continue current medical therapy Diastolic dysfunction Patient with a history of diastolic dysfunction. She does have lower extremity edema that is due toa combination of diastolic dysfunction and venous insufficiency. We did recommend support stockings. She also has a mildly elevated potassium of 5.2. She has a history of renal insufficiency with higher doses of diuretics. I am going to cut back on her Aldactone to 25 mg a day. And continue her Demadex. If she continues having worsening lower extreme edema may need to increase the dose of Demadex. I will need to check a Chem-7 every 3 months. Follow-up: Return in about 1 year (around 03/01/2022). Chief Complaint: 1 year follow-up. Subjective History of Present Illness: Ruth Donato is a 80 y.o. female with a history of Takotsubo cardiomyopathy, hypertension, diastolic dysfunction, renal insufficiency and history of pericardial effusion. Patient denies symptoms of angina. She does have occasional shortness of breath she attributes to asthma and has lower extremity edema. Her edema mainly is controlled with diuretics. She does drink larger quantities of fluids due to a history of renal insufficiency and constipation. On higher doses of diuretics she did have renal insufficiency with a creatinine of 1.8. Last creatinine was 1.41 on October 23, [id number] CAD 2008 carotid duplex-mild bilateral 03/01/2021-EF 61%. No valvular abnormalities. Objective Imaging: I independently reviewed the EKG and agree with the interpretation(s) with the following comments. 03/01/20219503-YHE-Litsl Rhythm Low voltage -possible pulmonary disease. ECG 12 Lead Final Result by Geovanna Benites MD (03/01/2021 1147) Echocardiogram complete Final Result by Brea Jewell MD (03/01/2021 1118) Review of Systems: Review of systems performed by the medical supply technician, personally reviewed and viewable in the current patient encounter. Pertinent positive and negative findings detailed in HPI. HOME Medications: Current Outpatient Medications on File Prior to Visit Medication Sig albuterol (PROVENTIL) 2.5 mg/0.5 mL Nebu Take 2.5 mg by nebulization . albuterol 90 mcg/actuation inhaler Inhale 2 puffs as needed for wheezing . aspirin 81 MG EC tablet Take 81 mg by mouth daily . dipyridamole (PERSANTINE) 75 MG tablet Take 1 (one) tablet (75 mg total) by mouth 2 (two) times a day . losartan (COZAAR) 25 MG tablet Take 0.5 (one-half) tablet (12.5 mg total) by mouth daily (Alternatewith 1 whole tab every 3 days) . montelukast (SINGULAIR) 10 mg tablet Take 10 mg by mouth nightly . nitrofurantoin, macrocrystal-monohydrate, (MACROBID) 100 MG capsule Take 100 mg by mouth as needed . omeprazole (PRILOSEC) 40 MG capsule Take 40 mg by mouth as needed . spironolactone (ALDACTONE) 25 MG tablet Take 1 (one) tablet (25 mg total) by mouth 2 (two) times a day . Symbicort 160-4.5 mcg/actuation inhaler Inhale 2 puffs 2 (two) times a day . torsemide (DEMADEX) 10 MG tablet Take 1 (one) tablet (10 mg total) by mouth daily . No current facility-administered medications on file prior to visit. Vital Signs: BP 135/69 (BP Location: Right arm, Patient Position: Sitting) Pulse 71 Ht 5' 1 Wt 62.1 kg (137 lb) BMI 25.89 kg/m Physical Exam Neck: Vascular: No carotid bruit. Cardiovascular: Rate and Rhythm: Normal rate. Heart sounds: No murmur heard. Gallop present. Comments: S4 gallop Pulmonary: Effort: Pulmonary effort is normal. Breath sounds: No wheezing or rales. Musculoskeletal: Right lower leg: Edema present. Left lower leg: Edema present. Comments: Mild bilateral lower extremity edema Labs: I personally reviewed and interpreted the labs documented below. No results found for: CHOL, LDLCALC, LDLDIRECT, TRIG, HDL Creatinine clearance cannot be calculated (No successful lab value found.) documented in this [id number] Miscellaneous Notes* Telephone Encounter - Robina Mera RN - 02/03/2021 8:36 AM EDT Pharmacy requesting refill. Upcoming OV 02/[address] Benites to fill. Will send to [facility] per request. 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 Diagnosed at the age of 18 Last Assessment & Plan: Her blood pressure is well controlled. Diagnosed at the age of 18 Urinary tract infection, site not specified 11/1606/22/2016 Overview: Chronic recurrent UTI, and hematuria Follows with 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 Diagnosed at the age of 18 Last Assessment & Plan: Her blood pressure is well controlled. 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 Diagnosed at the age of 18 Last Assessment & Plan: Her blood pressure is well controlled. 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 Diagnosed at the age of 18 Last Assessment & Plan: Her blood pressure is well controlled. 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 Diagnosed at the age of 18 Last Assessment & Plan: Her blood pressure is well controlled. 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 Diagnosed at the age of 18 Last Assessment & Plan: Her blood pressure is well controlled. 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 Diagnosed at the age of 18 Last Assessment & Plan: Her blood pressure is well controlled. 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 Diagnosed at the age of 18 Last Assessment & Plan: Her blood pressure is well controlled. 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 Diagnosed at the age of 18 Last Assessment & Plan: Her blood pressure is well controlled. 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 Diagnosed at the age of 18 Last Assessment & Plan: Her blood pressure is well controlled. 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 Diagnosed at the age of 18 Last Assessment & Plan: Her blood pressure is well controlled. 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 Diagnosed at the age of 18 Last Assessment & Plan: Her blood pressure is well controlled. 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 Diagnosed at the age of 18 Last Assessment & Plan: Her blood pressure is well controlled. 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 Diagnosed at the age of 18 Last Assessment & Plan: Her blood pressure is well controlled. 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 Diagnosed at the age of 18 Last Assessment & Plan: Her blood pressure is well controlled. 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 Diagnosed at the age of 18 Last Assessment & Plan: Her blood pressure is well controlled. 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 Diagnosed at the age of 18 Last Assessment & Plan: Her blood pressure is well controlled. 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 Diagnosed at the age of 18 Last Assessment & Plan: Her blood pressure is well controlled. 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 Diagnosed at the age of 18 Last Assessment & Plan: Her blood pressure is well controlled. 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 Diagnosed at the age of 18 Last Assessment & Plan: Her blood pressure is well controlled. 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 Diagnosed at the age of 18 Last Assessment & Plan: Her blood pressure is well controlled. 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 Diagnosed at the age of 18 Last Assessment & Plan: Her blood pressure is well controlled. 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 Diagnosed at the age of 18 Last Assessment & Plan: Her blood pressure is well controlled. 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 Diagnosed at the age of 18 Last Assessment & Plan: Her blood pressure is well controlled. 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 Diagnosed at the age of 18 Last Assessment & Plan: Her blood pressure is well controlled. 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 Diagnosed at the age of 18 Last Assessment & Plan: Her blood pressure is well controlled. 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 Diagnosed at the age of 18 Last Assessment & Plan: Her blood pressure is well controlled. 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 Diagnosed at the age of 18 Last Assessment & Plan: Her blood pressure is well controlled. 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 Diagnosed at the age of 18 Last Assessment & Plan: Her blood pressure is well controlled. 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 Diagnosed at the age of 18 Last Assessment & Plan: Her blood pressure is well controlled. 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 Diagnosed at the age of 18 Last Assessment & Plan: Her blood pressure is well controlled. 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 Diagnosed at the age of 18 Last Assessment & Plan: Her blood pressure is well controlled. 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 Diagnosed at the age of 18 Last Assessment & Plan: Her blood pressure is well controlled. 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 Diagnosed at the age of 18 Last Assessment & Plan: Her blood pressure is well controlled. 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 Diagnosed at the age of 18 Last Assessment & Plan: Her blood pressure is well controlled. 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 Diagnosed at the age of 18 Last Assessment & Plan: Her blood pressure is well controlled. 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 Diagnosed at the age of 18 Last Assessment & Plan: Her blood pressure is well controlled. 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 Diagnosed at the age of 18 Last Assessment & Plan: Her blood pressure is well controlled. Diagnosed at the age of 18 Urinary tract infection, site not specified 11/1606/22/2016 Overview: Chronic recurrent UTI, and hematuria Follows with [facility] and has followup 3-16-09 States hx bladder stones documented as of this encounter (statuses as of 03/23/2023) [facility] History of Past illness Narrative* Problem Noted Date Diagnosed Date Resolved Date Broken heart syndrome 05/26/20162019 Subconjunctival hemorrhage 09/09/2015 0 04/10/2018 Hypertension 12/01/2008 06/19/2020 Overview: Her blood pressure is well controlled today. Diagnosed at the age of 18 Last Assessment & Plan: Her blood pressure is well controlled. Diagnosed at the age of 18 Urinary tract infection, site not specified 12/01/2008 06/22/2016 Overview: Chronic recurrent UTI, and hematuria Follows with [facility] and has followup 316-09 States hx bladder stones documented as of this encounter (statuses as of 05/18/2023) [facility] History of Past illness Narrative* Problem Noted Date Diagnosed Date Resolved Date Broken heart syndrome 05/26/20162019 Subconjunctival hemorrhage 09/09/2015 0 04/10/2018 Hypertension 12/01/2008 06/19/2020 Overview: Her blood pressure is well controlled today. Diagnosed at the age of 18 Last Assessment & Plan: Her blood pressure is well controlled. Diagnosed at the age of 18 Urinary tract infection, site not specified 12/01/2008 06/22/2016 Overview: Chronic recurrent UTI, and hematuria Follows with [facility] and has followup 3-16-09 States hx bladder stones documented as of this encounter (statuses as of 06/02/2023) [facility] History of Past illness Narrative* Problem Noted Date Diagnosed Date Resolved Date Broken heart syndrome 05/26/20162019 Subconjunctival hemorrhage 09/09/2015 0 04/10/2018 Hypertension 12/01/2008 06/19/2020 Overview: Her blood pressure is well controlled today. Diagnosed at the age of 18 Last Assessment & Plan: Her blood pressure is well controlled. Diagnosed at the age of 18 Urinary tract infection, site not specified 12/01/2008 06/22/2016 Overview: Chronic recurrent UTI, and hematuria Follows with [facility] and has followup 3--09 States hx bladder stones documented as of this encounter (statuses as of 07/06/2023) [facility] History of Past illness Narrative* Problem Noted Date Diagnosed Date Resolved Date Broken heart syndrome 05/26/20162019 Subconjunctival hemorrhage 09/09/2015 0 04/10/2018 Hypertension 12/01/2008 06/19/2020 Overview: Her blood pressure is well controlled today. Diagnosed at the age of 18 Last Assessment & Plan: Her blood pressure is well controlled. Diagnosed at the age of 18 Urinary tract infection, site not specified 12/01/2008 06/22/2016 Overview: Chronic recurrent UTI, and hematuria Follows with [facility] and has followup 3-16-09 States hx bladder stones documented as of this encounter (statuses as of 07/10/2023) [facility] History of Past illness Narrative* Problem Noted Date Diagnosed Date Resolved Date Broken heart syndrome 05/26/20162019 Subconjunctival hemorrhage 09/09/2015 0 04/10/2018 Hypertension 12/01/2008 06/19/2020 Overview: Her blood pressure is well controlled today. Diagnosed at the age of 18 Last Assessment & Plan: Her blood pressure is well controlled. Diagnosed at the age of 18 Urinary tract infection, site not specified 12/01/2008 06/22/2016 Overview: Chronic recurrent UTI, and hematuria Follows with [facility] and has followup 3-16-09 States hx bladder stones documented as of this encounter (statuses as of 07/23/2023) [facility] Diastolic dysfunction- Primary Unspecified [facility] disease [facility] Takotsubo cardiomyopathy- Primary Takotsubo syndrome Diastolic dysfunction Unspecified heart disease Hypertension, essential Unspecified essential hypertension [facility] Diagnosis Diastolic dysfunction Unspecified heart disease Takotsubo cardiomyopathy Takotsubo syndrome documented in this encounter [facility] note* Diagnosis 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 [facility] Diagnosis 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 [facility] Diagnosis 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 Gout with manifestations Gout with other specified manifestations Gouty arthropathy, chronic, 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) 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 Antiplatelet or antithrombotic long-term use Encounter for long-term (current) use of antiplatelets/antithrombotics skilled nursing (current) use of antibiotics skilled nursing (current) use of aspirin bed bug exterminator 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 use of systemic steroids Encounter for long-term (current) use of steroids bed bug exterminator use of drug Encounter for long-term (current) use of other medications Chronic tophaceous 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) documented [facility] Diagnosis 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 [facility]* Diagnosis Stage 3b chronic kidney disease- Primary documented in this [facility]* Diagnosis Pain Generalized pain [facility] Diagnosis Posterior tibial tendon dysfunction- Primary Other disorders of synovium, tendon, and bursa Onychomycosis Dermatophytosis of nail [facility]* Diagnosis Need for vaccination- Primary Need for prophylactic vaccination and inoculation against unspecified single disease documented in this encounter [facility] note* Diagnosis Chronic tophaceous gout- Primary 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 Gout with manifestations Gout with other specified manifestations Gouty arthropathy, chronic, 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) 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 Abnormal renal function test Nonspecific abnormal results of kidney function study Antiplatelet or antithrombotic long-term use Encounter for long-term (current) use of antiplatelets/antithrombotics History of tremor skilled nursing (current) use of antibiotics skilled nursing (current) use of aspirin documented in this encounter [facility] note* Diagnosis Diastolic dysfunction- Primary Unspecified heart disease documented in this encounter [facility] note* Diagnosis Acute on chronic heart failure with preserved ejection fraction (HFpEF) (HCC)- Primary Takotsubo cardiomyopathy Takotsubo syndrome Hypertension, essential Unspecified essential hypertension Leg edema Edema CVA, old, disturbances of vision documented in this encounter [facility] note* Diagnosis Impacted cerumen of right ear- Primary Impacted cerumen Irritation of external ear canal, right documented in this encounter [facility] note* Diagnosis Vitreous floaters of both eyes- Primary Pseudophakia of both eyes Lens replaced by other means Chronically dry eyes, bilateral Hyperopia of both eyes Regular astigmatism of both eyes Regular astigmatism documented in this encounter [facility] note* Diagnosis Chest pain, unspecified type- Primary documented in this encounter [facility] note* Diagnosis Hospital discharge follow-up- Primary Other follow-up examination Small bowel obstruction (HCC) Unspecified intestinal obstruction Congestive heart failure, unspecified HF chronicity, unspecified heart failure type (HCC) Bacterial pneumonia Bacterial pneumonia, unspecified documented in this encounter [facility] note* Diagnosis Vaginal yeast infection- Primary Candidiasis of vulva and vagina documented in this encounter [facility] note* Diagnosis URI, acute- Primary Acute upper respiratory infections of unspecified site Moderate persistent asthma without complication Unspecified asthma documented in this encounter [facility] note* Diagnosis Urinary frequency- Primary Fever, unspecified fever cause Suspected COVID-19 virus infection documented in this encounter [facility] note* Diagnosis COVID-19 documented in this encounter [facility] note* Diagnosis COVID- Primary COVID-19 documented in this encounter [facility] note* Diagnosis Microscopic hematuria- Primary Moderate persistent asthma without complication Unspecified asthma COVID-19 documented in this encounter [facility] note* Diagnosis Wound of right lower extremity, initial encounter- Primary [facility] Diagnosis Hospital discharge follow-up- Primary Other follow-up examination Cellulitis of skin Cellulitis and abscess of unspecified site Vaginal yeast infection Candidiasis of vulva and vagina documented in this encounter [facility] note* Diagnosis Cellulitis of skin- Primary Cellulitis and abscess of unspecified site documented in this encounter [facility] note* Diagnosis Acute on chronic heart failure with preserved ejection fraction (HFpEF) (HCC)- Primary Takotsubo cardiomyopathy Takotsubo syndrome Hypertension, essential Unspecified essential hypertension Diastolic dysfunction Unspecified heart disease documented in this encounter [facility] note* Diagnosis Foot pain, right- Primary Pain in limb History of gout Personal history of other endocrine, metabolic, and immunity disorders documented in this encounter [facility] note* Diagnosis Vaginal yeast infection- Primary Candidiasis of vulva and vagina documented in this encounter [facility] note* Diagnosis Gout with manifestations- Primary Gout with other specified manifestations Moderate persistent asthma without complication Unspecified asthma Stage 3b chronic kidney disease (HCC) Hypertensive heart disease with heart failure and stage 3 chronic kidney disease, unspecified heart failure type, unspecified whether stage 3a or 3b CKD (HCC) Cellulitis of skin Cellulitis and abscess of unspecified site documented in this encounter [facility] note* Diagnosis Need for vaccination- Primary Need for prophylactic vaccination and inoculation against unspecified single disease documented in this encounter [facility] note* Diagnosis Subconjunctival hemorrhage of left eye- Primary documented in this encounter [facility] note* Diagnosis Stage 3b chronic kidney disease- Primary documented in this encounter [facility] note* Diagnosis Diastolic dysfunction Unspecified heart disease documented in this encounter [facility] note* Diagnosis Bronchitis- Primary Bronchitis, not specified as acute or chronic History of recurrent UTIs Personal history of urinary (tract) infection Gastroesophageal reflux disease, unspecified whether esophagitis present documented in this encounter [facility] note* Diagnosis Mild intermittent asthma with acute exacerbation- Primary Unspecified asthma, with exacerbation documented in this encounter [facility] note* Diagnosis History of regular medication use- Primary documented in this encounter [facility] note* Diagnosis Porokeratosis- Primary Other specified congenital anomaly of skin documented in this encounter [facility] note* Diagnosis Acute on chronic heart failure with preserved ejection fraction (HFpEF) (HCC)- Primary Takotsubo cardiomyopathy Takotsubo syndrome History of regular medication use Hypertension, essential Unspecified essential hypertension documented in this encounter [facility] note* Diagnosis Acute on chronic heart failure with preserved ejection fraction (HFpEF) (HCC)- Primary Takotsubo cardiomyopathy Takotsubo syndrome History of regular medication use Hypertension, essential Unspecified essential hypertension [facility] Stage [facility]b chronic kidney disease- Primary documented in this encounter [facility] note* Diagnosis Chronic tophaceous gout- Primary 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 Elevated parathyroid hormone Unspecified endocrine disorder Gout with manifestations Gout with other specified manifestations Gouty arthropathy, chronic, 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) Hypercarbia Other dyspnea and respiratory abnormality Hyponatremia Hyposmolality and/or hyponatremia Secondary renal hyperparathyroidism Secondary hyperparathyroidism (of renal origin) 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 Abnormal renal function test Nonspecific abnormal results of kidney function study Antiplatelet or antithrombotic long-term use Encounter for long-term (current) use of antiplatelets/antithrombotics History of tremor LFT elevation Other abnormal blood chemistry skilled nursing (current) use of aspirin documented in this encounter [facility] note* Diagnosis Need for vaccination- Primary Need for prophylactic vaccination and inoculation against unspecified single disease documented in this encounter [facility] note* Diagnosis Diastolic dysfunction Unspecified heart disease documented in this encounter [facility] note* Diagnosis Stage 3b chronic kidney disease- Primary documented in this encounter [facility] note* Diagnosis Regular astigmatism, bilateral- Primary Hyperopia, bilateral Vitreous floaters of both eyes Pseudophakia of both eyes Lens replaced by other means [facility]* Diagnosis Lower resp. tract infection- Primary Other diseases of respiratory system, not elsewhere classified Moderate persistent asthma without complication Unspecified asthma documented in this encounter [facility] note* Diagnosis Precordial pain- Primary Acute on chronic heart failure with preserved ejection fraction (HFpEF) ([facility]) Takotsubo cardiomyopathy Takotsubo syndrome Hypertension, essential Unspecified essential hypertension documented in this encounter [facility] note* Diagnosis Acute on chronic heart failure with preserved ejection fraction (HFpEF) (HCC)- Primary Medication management documented in this encounter [facility] note* Diagnosis Vaginal yeast infection- Primary Candidiasis of vulva and vagina [facility]* Diagnosis Chronic tophaceous gout- Primary 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 Elevated parathyroid hormone Unspecified endocrine disorder Gout with manifestations Gout with other specified manifestations Gouty arthropathy, chronic, 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 Secondary hyperparathyroidism (of renal origin) Tremor Abnormal involuntary movements 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 Abnormal renal function test Nonspecific abnormal results of kidney function study Antiplatelet or antithrombotic long-term use Encounter for long-term (current) use of antiplatelets/antithrombotics History of tremor skilled nursing (current) use of antibiotics 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 DONATO presents with signs and symptoms consistent with Physical debility and generalized weakness with difficulty with gait and impaired functional transfers and demonstrates impairments/limitations in BLE's MMT, more proximally at hip/pelvis musculature, decreased eccentric control as evident with sit<>stand transfers as well as deficits with gait and more dynamic gait activities with DGI and WALKER test showing balance deficits at this time. She reported good understanding of all edu and HEP with HO given and orange, red, green therabands given. They would benefit from skilled Physical Therapy with combination of manual therapy techniques to decrease myofascial and joint restrictions, as well as progression of exercises for ROM, flexibility, strength, core stabilization, and glute retraining, and body mechanics education throughout POC to progress towards independence with ADLs/IADL s and return to PLOF. * Clinical Presentation: Stable and/or uncomplicated characteristics. * Level of Complexity: low * Problem List: activity limitations, ADLs/IADLs/self care skills, balance, decreased functional level, fall risk, flexibility, gait/locomotion, motor function/control/tone, pain, participation restrictions, posture, range of motion/joint mobility, strength and transfers. [facility] Work Phone: History of Present illness Narrative* Progressed to standing PRE's and balance this date. * Progressed HEP, see below. * Patient has lateral shift during stance on L making gait more difficult. * Patient noted fatigue with ankle strategy exercises. * Mild sway with static balance with NBOS. [facility] Work Phone: History of Present illness Narrative* Ms. DONATO presents with signs and symptoms consistent with Physical debility and generalized weakness with difficulty with gait and impaired functional transfers and demonstrates impairments/limitations in BLE's MMT, more proximally at hip/pelvis musculature, decreased eccentric control as evident w ith sit<>stand transfers as well as deficits with gait and more dynamic gait activities with DGI and WALKER test showing balance deficits at this time. She reported good understanding of all edu and HEP with HO given and orange, red, green therabands given. They would benefit from skilled Physical Therapy with combination of manual therapy techniques to decrease myofascial and joint restrictions, as well as progression of exercises for ROM, flexibility, strength, core stabilization, and glute retraining, and body mechanics education throughout POC to progress towards independence with ADLs/IADL s and return to PLOF. * Clinical Presentation: Stable and/or uncomplicated characteristics. * Level of Complexity: low * Problem List: activity limitations, ADLs/IADLs/self care skills, balance, decreased functional level, fall risk, flexibility, gait/locomotion, motor function/control/tone, pain, participation restrictions, posture, range of motion/joint mobility, strength and transfers. [facility] Work Phone: [facility] [place] for referral (narrative)* Diagnostic Procedure Only (Routine) - Closed Specialty Diagnoses / Procedures Referred By Contphi cedillo Referred To Contact XR IMAGING Diagnoses Pain Procedures XR FOOT GENERAL 3V AP/LAT/OBL BILATERAL RADEX FOOT COMPLETE MINIMUM 3 VIEWS Mona Bone [address] [place] [address] Xr Imaging Referral ID Status Reason Start Date Expiration Date V isits Requested Visits Authorized [id number] Closed Auto-Generate d Referral 01/12/2022 02/11/2023 1 1 [facility] for referral (narrative)* Outpatient Procedure (Routine) - Authorized Specialty Diagnoses / Procedures Referred By Nita cedillo Referred To Contact [facility] Diagnoses Moderate persistent asthma without complication Procedures SPIROMETRY - BASELINE AND POST DILATOR BRNCDILAT RSPSE SPMTRY PRE&POST-BRNCDILAT ADMN Kari Katz, THORACIC SURGEON.ONLINE MERCHANDISING SPECIALIST [address] [place] [address] [facility] [address] [place] [address] Referral ID Status Reason Start Date Expiration Date Visits Requested Visits Authorized [id number] Authorized Auto-Generat ed Referral 05/19/2022 06/18/2023 1 1 * Medication Prior Authorization - Closed Specialty Diagnoses / Procedures Referred By Nita cedillo Referred To Contact Diagnoses Moderate persistent asthma without complication Kari Katz APRN.CNP [address] [place] [address] Referral ID Status Reason Start Date Expiration Date Visits Re quested Visits Authorized [id number] Closed 1 1 * Consult, Test, Treat (Routine) - Authorized Specialty Diagnoses / Procedures Referred By Nita cedillo Referred To Contact Urology Diagnoses Microscopic hematuria Procedures CONSULT TO UROLOGY OFFICE/OUTPATIENT NEW HIGH MDM 60-74 MINUTES Kari Katz APRN.CNP [address] [place] [address] Referral ID Status Reason Start Date Expiration Date Visits Requested Visits Authorized [id number] Authorized PCP Requested Referral 05/19/2022 05/19/2023 1 1 [facility] for referral (narrative)* Consultation (Routine) - New Request Specialty Diagnoses / Procedures Referred By Nita cedillo Referred To Contact Neurology Diagnoses 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 Elevated parathyroid hormone Gout with manifestations Gouty arthropathy, chronic, with tophi Secondary renal hyperparathyroidism Tremor 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 Abnormal renal function test Antiplatelet or antithrombotic long-term use History of tremor skilled nursing (current) use of antibiotics skilled nursing (current) use of aspirin Brea Pandya Jr., DO [address] [place] [address] Jason Brooks MD [address] [place] [address] Referral ID Status Reason Start Date Expiration Date V isits Requested Visits Authorized [id number] New Request 08/02/2023 08/26/2024 1 1 [facility] for visit Narrative* Diagnostic Procedure Only (Routine) - Closed Specialty Diagnoses / Procedures Referred By Nita t Referred To Contact XR IMAGING Diagnoses Pain Procedures XR FOOT GENERAL 3V AP/LAT/OBL BILATERAL RADEX FOOT COMPLETE MINIMUM 3 VIEWS Mona [address] [place] [address] Xr Imaging Referral ID Status Reason Start Date Expiration Date V isits Requested Visits Authorized [id number] Closed Auto-Generate d Referral 01/12/2022 02/11/2023 1 1 [facility] for visit Narrative* Initial Evaluation . Weakness/Debility. * Referred by: Christopher Sandoval [facility] Work Phone: reason for visit Narrative* Initial Evaluation . Weakness/Debility. * [facility]: [facility] Work Phone: Summary Purpose Family History No Family History Records FoundNo Family History Records FoundNo Family History Records FoundNo Family History Records FoundNo Family History Records FoundNo Family History Records FoundNo Family History Records FoundNo Family History Records FoundNo Family History Records FoundNo Family History Records Found Advance Directives No Advanced Directives Records FoundDocuments on File Type Date Recorded Patient Rn Gastroenterology Expl anation Advance Directives and Living Will Documents on File Type Date Recorded Patient Rn Gastroenterology Expl anation Advance Directives and Living Will Documents on File Type Date Recorded Patient Rn Gastroenterology Expl anation Advance Directives and Livin g Will 03/01/2021 9:58 AM Documents on File Type Date Recorded Patient Rn Gastroenterology Expl anation Advance Directives and Livin g Will 03/01/2021 9:58 AM Documents on File Type Date Recorded Patient Rn Gastroenterology Expl anation Advance Directive(s) 06/08/2016 1:07 PM Documents on File Type Date Recorded Patient Rn Gastroenterology Expl anation Advance Directive(s) 06/08/2016 1:07 PM Reason for Referral Status Reason Specialty Diagnoses / Procedures Re ferred By Contact Referred To Contact New Request Cardiology Diagnoses Diastolic dysfunction Takotsubo cardiomyopathy Procedures Echocardiogram complete Geovanna Benites MD [address] [place] [address] Status Reason Specialty Diagnoses / Procedures Referred By Contact Referred To Contact Authorized Cardiology Diagnoses Diastolic dysfunction Procedures ECG 12 Lead Geovanna Benites MD [address] [place] [address] Status Reason Specialty Diagnoses / Procedures Re ferred By Contact Referred To Contact Closed Cardiology Diagnoses Diastolic dysfunction Takotsubo cardiomyopathy Procedures Echocardiogram complete Geovanna Benites MD [address] [place] [address] Specialty Diagnoses / Procedures Referred By Contac t Referred To Contact Cardiology Diagnoses Diastolic dysfunction Procedures ECG 12 Lead Geovanna Benites MD [address] [place] [address] Referral ID Status Reason Start Date Expiration Date V isits Requested Visits Authorized [id number] Authorized 03/11/2022 03/11/2023 3 3 Specialty Diagnoses / Procedures Referred By Contac t Referred To Contact Cardiology Diagnoses Acute on chronic heart failure with preserved ejection fraction (HFpEF) ([facility]) Procedures Echocardiogram complete Geovanna Benites MD [address] [place] [address] Referral ID Status Reason Start Date Expiration Date V isits Requested Visits Authorized [id number] New Request 04/14/2022 04/14/2023 1 1 Specialty Diagnoses / Procedures Referred By Contac t Referred To Contact Diagnoses Moderate persistent asthma without complication Bacterial pneumonia Kari Katz, THORACIC SURGEON.ONLINE MERCHANDISING SPECIALIST [address] [place] [address] Referral ID Status Reason Start Date Expiration Date Visits Re quested Visits Authorized [id number] Closed 1 1 Specialty Diagnoses / Procedures Referred By Contac t Referred To Contact Diagnoses COVID-19 Procedures COVID TREATMENT REFERRAL COVID TREATMENT REFERRAL Doreen Nogueira PA-C [address] [place] [address] Referral ID Status Reason Start Date Expiration Date Visits Requested Visits Authorized [id number] Pending Review Auto-Generat ed Referral 05/05/2022 05/05/2023 1 1 Specialty Diagnoses / Procedures Referred By Contac t Referred To Contact Pharmacy Diagnoses Stage 3a chronic kidney disease Ivett Mchugh MD [address] [place] [address] Referral ID Status Reason Start Date Expiration Date V isits Requested Visits Authorized [id number] New Request 05/18/2022 06/12/2023 1 1 Specialty Diagnoses / Procedures Referred By Contac t Referred To Contact Pharmacy Diagnoses Stage 3b chronic kidney disease Ivett Mchugh MD [address] [place] [phone] Mary Jane Back, [facility],PharmD Referral ID Status Reason Start Date Expiration Date V isits Requested Visits Authorized [id number] New Request 08/31/2022 09/25/2023 1 1 History of Present Illness * Geovanna Benites MD - 03/18/2020 1:15 PM EDT Interventional Cardiology Clinic Follow-up Heart & Vascular [facility] 03/18/2020 Geovanna Benites MD [address] [phone] Patient: Ruth Donato Date of : 1940 (79 y.o.) PCP: Christopher Sandoval MD Assessment & Plan Takotsubo cardiomyopathy Patient with a history of stress-induced cardiomyopathy that has resolved. Patient does have some increased dyspnea on exertion. She attributes it to her asthma. I will reassess with an echo next year. Diastolic dysfunction Patient appears to be euvolemic. We will continue her current diuretic regimen. She has scheduled follow-up with her navigation officer next week or so. Hypertension, essential Blood pressures under good control. Continue medical therapy. Follow-up: Return in about 1 year (around 03/18/2021). Chief Complaint: Follow-up (2 mo) Subjective History of Present Illness: Ruth Donato is a 79 y.o. female with a history of Takotsubo cardiomyopathy, hypertension, diastolic dysfunction, renal insufficiency and history of pericardial effusion. Patient has been complaining of a severe gouty attack in early October lasting proximally 7 weeks. She did get a shot of steroidswhich significant improved her symptoms. It was recommended that she take Uloric however she was reluctant to take it because she was concerned about a stroke or heart attack. She also does have his gouty arthritis. Patient does have shortness of breath. She does complain that it is probably related to her asthma. Patient denies chest pain. She does have worsening lower extremity edema as the daygoes on. She stopped taking her Uloric because her creatinine increased. She is scheduled to see a navigation officer in the next few weeks. On higher doses of diuretics she did have renal insufficiency with a creatinine of 1.8. Last creatinine was 1.41 on October 23, [id number] CAD 2008 carotid duplex-mild bilateral 12/2017 echo EF 60% Objective Imaging: I independently reviewed the EKG and agree with the interpretation(s) with the following comments. Sinus Rhythm LAD Low voltage in limb leads. ECG 12 Lead Final Result by Geovanna Benites MD (03/18/2020 1316) Review of Systems: Review of systems performed by the medical supply technician, personally reviewed and viewable in the current patient encounter. Pertinent positive and negative findings detailed in HPI. HOME Medications: Current Outpatient Medications on File Prior to Visit Medication Sig albuterol (PROVENTIL) 2.5 mg/0.5 mL Nebu Take 2.5 mg by nebulization . albuterol 90 mcg/actuation inhaler Inhale 2 puffs as needed for wheezing . aspirin 81 MG EC tablet Take 81 mg by mouth daily . dipyridamole (PERSANTINE) 75 MG tablet Take 1 (one) tablet (75 mg total) by mouth 2 (two) times a day . losartan (COZAAR) 25 MG tablet Take 1 (one) tablet (25 mg total) by mouth daily 0.5 tablet QD (1 whole tab every 3 days) . montelukast (SINGULAIR) 10 mg tablet Take 10 mg by mouth nightly . nitrofurantoin, macrocrystal-monohydrate, (MACROBID) 100 MG capsule Take 100 mg by mouth as needed . omeprazole (PRILOSEC) 40 MG capsule Take 40 mg by mouth as needed . spironolactone (ALDACTONE) 25 MG tablet Take 1 (one) tablet (25 mg total) by mouth 2 (two) times a day . Symbicort 160-4.5 mcg/actuation inhaler Inhale 2 puffs 2 (two) times a day . torsemide (DEMADEX) 10 MG tablet Take 1 (one) tablet (10 mg total) by mouth daily . No current facility-administered medications on file prior to visit. Vital Signs: BP 121/71 (BP Location: Right arm, Patient Position: Sitting) Pulse 76 Ht 5' 1 Wt 63 kg (138lb 12.8 oz) BMI 26.23 kg/m Physical Exam Neck: Carotid bruit is not present. Cardiovascular: Normal rate. No murmur heard. Pulmonary/Chest: Effort normal. She has no wheezes. She has no rales. Musculoskeletal: General: Edema present. Comments: Mild lower extremity edema and positive venous varicosities Labs: I personally reviewed and interpreted the labs documented below. No results found for: CHOL, LDLCALC, LDLDIRECT, TRIG, HDL Creatinine clearance cannot be calculated (No successful lab value found.) * Charlotte Luna MA - 03/18/2020 12:59 PM EDT Review of Systems Constitution: Negative for diaphoresis, malaise/fatigue, weight gain and weight loss. HENT: Negative for hearing loss, nosebleeds and tinnitus. Eyes: Negative for blurred vision and visual disturbance. Cardiovascular: Positive for leg swelling. Negative for chest pain, claudication, cyanosis, dyspneaon exertion, irregular heartbeat, near-syncope, orthopnea, palpitations, paroxysmal nocturnal dyspnea and syncope. Respiratory: Positive for shortness of breath. Negative for hemoptysis and snoring. Endocrine: Negative for cold intolerance and heat intolerance. Hematologic/Lymphatic: Does not bruise/bleed easily. Skin: Negative for flushing, poor wound healing and rash. Musculoskeletal: Negative for back pain, muscle weakness and myalgias. Gastrointestinal: Negative for abdominal pain, change in bowel habit, melena, nausea and vomiting. Genitourinary: Negative for decreased libido and hematuria. Neurological: Negative for loss of balance and numbness. Psychiatric/Behavioral: Negative for memory loss. The patient is not nervous/anxious. documented in this encounter Assessments Diagnosis Diastolic dysfunction Unspecified heart disease Takotsubo cardiomyopathy Takotsubo syndrome Hypertension, essential Unspecified essential hypertension Medications Administered Section Active Administered Medications - up to 3 most recent administrations Medication Order MAR Action Action Date Dose Rate Site tropicamide 0.5 % 1 Drop (MYDRIACYL) 1 Drop, BOTH EYES, DIRECTED, Starting on Mon04/05/22 at 1200, Until Mon04/05/22 at 2359, Administer for dilation Given 04/05/2022 12:00 PM EDT 1 Drop Inactive Administered Medications - up to 3 most recent administrations Medication Order MAR Action Action Date Dose Rate Site bebtelovimab 175 mg injection 175 mg, INTRAVENOUS, ONCE (UP TO 30 DAYS AMB), 1 dose, On Mon05/06/22 at 1030, Administer over 30 seconds. Flush line with NS after administration Refrigerate - Protect from Light. Observe patient for at least 1 hour after injection administered., Prior to the patient receiving bebtelovimab, patient has been given the Fact Sheet for Patients and Parents/Caregivers. Yes, Prior to the patient receiving bebtelovimab, patient has been informed of alternatives to receiving bebtelovimab. Yes, Prior to the patient receiving bebtelovimab, patient has been informed that bebtelovimab is an unapproved drug that is authorized for use under EUA. Yes, Prior to the patient receiving bebtelovimab, patient has been advised to continue self-isolation and infection control measures according to CDC guidelines. Yes, AMB MED ORDERS Given 05/06/2022 10:30 AM EDT 175 mg Active Administered Medications - up to 3 most recent administrations Medication Order MAR Action Action Date Dose Rate Site PHENYLephrine 2.5 % 1 Drop (AK-DILATE, LAMINE-SYNEPHRINE) 1 Drop, BOTH EYES, DIRECTED, Starting on Brittani 05/18/23 at 1100, Until Brittani 05/18/23 at 2259, Administer for dilation PROTECT FROM LIGHT Given 05/18/2023 11:00 AM EDT 1 Drop tropicamide 1 % 1 Drop (MYDRIACYL) 1 Drop, BOTH EYES, DIRECTED, Starting on Brittani 05/18/23 at 1100, Until Brittani 05/18/23 at 2259, Administer for dilation Given 05/18/2023 11:00 AM EDT 1 Drop Health Concerns Infection Onset Date Last Indicated Resolved Time COVID-19 Confirmed 05/03/2022 05/03/2022 Infection Onset Date Last Indicated Resolved Time COVID-19 Confirmed 05/03/2022 05/03/2022 Additional Source Comments INFORMATION SOURCE (unrecogn ized section and content) DATE CREATED AUTHOR AUTHOR'S ORGANIZ ATION 08/06/2021 [facility] [place] DATE CREATED AUTHOR AUTHOR'S ORGANIZ ATION 05/12/2022 [facility] DATE CREATED AUTHOR AUTHOR'S ORGANIZ ATION 06/18/2022 [facility] DATE CREATED AUTHOR AUTHOR'S ORGANIZ ATION 06/19/2022 [facility] DATE CREATED AUTHOR AUTHOR'S ORGANIZ ATION 06/25/2022 [facility] DATE CREATED AUTHOR AUTHOR'S ORGANIZ ATION 06/21/2023 [facility] DATE CREATED AUTHOR AUTHOR'S ORGANIZ ATION 07/27/2023 [facility] DATE CREATED AUTHOR AUTHOR'S ORGANIZ ATION 08/25/2023 [facility] DATE CREATED AUTHOR AUTHOR'S ORGANIZ ATION 10/08/2023 [facility] Reason for Visit (unrecogniz ed section and content) Reason Onset Date Comments Medication Refill 02/03/2021 Aldactone, Los antionette, Torsemide, dipyridamole Reason Comments Annual Exam Status Reason Specialty Diagnoses / Procedures Referre d By Contact Referred To Contact Closed Cardiology Diagnoses Diastolic dysfunction Procedures ECG 12 Lead Geovanna Benites MD [address] [place] [address] Status Reason Specialty Diagnoses / Procedures Re ferred By Contact Referred To Contact Closed Cardiology Diagnoses Diastolic dysfunction Takotsubo cardiomyopathy Procedures Echocardiogram complete Geovanna Benites MD [address] [place] [address] Reason Comments Infusion Visit Krystexxa Status Reason Specialty Diagnoses / Procedures Re ferred By Contact Referred To Contact Closed Chemotherapy Diagnoses 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 Gout with manifestations Gouty arthropathy, chronic, with tophi Hyperkalemia Hyperuricemia Disorder of bone and cartilage 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 Abnormal renal function test Antiplatelet or antithrombotic long-term use History of tremor skilled nursing (current) use of antibiotics skilled nursing (current) use of aspirin skilled nursing current use of systemic steroids bed 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 She states that with the prednisone she is getting some relief. She states she cut the prednisone in half . Patient states she is having right foot pain because she does have gout in her right foot. Patient states that she is doing about the same since her last appointment. Reason Onset Date Comments Medication Refill 12/23/2021 Torsemide Reason Comments Chronic Kidney Disease Labs 12/23 bun-47, cr-1.11 Reason Comments F/U 6 Month Reason Comments Results Reason Comments New Pain Reason Comments Imm/Inj Reason Comments Joint Pain Patient is here for a 6 Month F/U. Patient states that she is not having any pain today. Patient states that she had gout last month in her right foot big toe. Patient states her right index finger is getting worse, but her right ring finger is getting better. Reason Comments Annual Exam Reason Comments Ear Problem onset x6 wks, denied pain with visit, reported decreased hearing (RT) Reason Comments Vitreous Floaters Evaluation Reason Comments Erroneous encounter-disregard Reason Comments Hospital Follow Up small bowel obstruct ion/Pneumonia Reason Comments Medication Question Reason Comments Acute Visit PNE getting worse Reason Comments Results Xray Results Reason Comments Urinary Frequency frequency x 1 day Reason Comments Results, Lab Reason Comments Results Labs Reason Comments Infusion Specialty Diagnoses / Procedures Referred By Nita t Referred To Contact Diagnoses COVID-19 Procedures COVID TREATMENT REFERRAL COVID TREATMENT REFERRAL Doreen Nogueira PA-C [address] [place] [address] Referral ID Status Reason Start Date Expiration Date Visits Requested Visits Authorized [id number] Pending Review Auto-Generat ed Referral 05/05/2022 05/05/2023 1 1 Reason Comments Cough Cough, and congestio n-has COVID but concerned about pneumonia Reason Comments Results Urine culture Reason Onset Date Comments Medication Refill 05/13/2022 Torsemide Reason Comments Chronic Kidney Disease Labs-05/03-BUN-30, cr-1.14 Reason Comments Follow Up Follow up from PNE Reason Comments See Triage Encounter Reason Onset Date Comments Medication Problem 05/31/2022 ER F/U 05/31/2022 Edema 05/31/2022 Reason Comments Follow Up [facility] ER Reason Comments Follow Up right leg cellulits Reason Comments Follow-up Reason Comments Trauma Right lower leg and foot swollen x 1 week Reason Comments 6 Month Exam Reason Comments Red Eye Left Eye Reason Comments Chronic Kidney Disease Labs 08/22 bun-52, cr-1.39 Hyponatremia Na-134 Reason Onset Date Comments Medication Refill 09/23/2022 Aldactone Reason Comments Acute Visit fever and coughing u p flem Reason Comments Acute Visit cough, fever and SOB Reason Comments Foot Deformity Established Patient Pain Reason Onset Date Comments Medication Refill 12/20/2022 Multiple medic ations Reason Comments Chronic Kidney Disease Labs 01/02 bun-51, cr-1.63 Reason Comments Follow-up Patient is here for 6 month F/U. Patient states she has been feeling well. Has large wound on right lower leg causing drowsiness. Reason Onset Date Comments Medication Refill 03/27/2023 Spironolactone Reason Comments Chronic Kidney Disease Labs 05/02 bun-59, cr-1.51 Reason Comments Floaters Both Eyes Reason Comments Follow Up UC cough Reason Onset Date Comments Lab reminder 06/02/2023 Reason Comments Follow-up 6 month follow up Reason Comments incidental finding-lesion on pancreas WC H Reason Comments Follow-up 5 month follow up Lab Review Reason Comments Chronic Kidney Disease Labs 08/16 bun-49 , cr-1.57 Assessment & Plan Note - Geovanna Benites MD - 03/18/2020 1:32 PM EDTAssessment & Plan Note - Geovanna Benites MD - 03/18/2020 1:32 PM EDT Miscellaneous Notes (unrecog nized section and content) Associated Problem(s): Hypertension, essential Blood pressures under good control. Continue medical therapy. Associated Problem(s): Diastolic dysfunction Patient appears to be euvolemic. We will continue her current diuretic regimen. She has scheduled follow-up with her navigation officer next week or so. Associated Problem(s): Takotsubo cardiomyopathy Patient with a history of stress-induced cardiomyopathy that has resolved. Patient does have some increased dyspnea on exertion. She attributes it to her asthma. I will reassess with an echo next year. documented in this encounter Care Teams (unrecognized sec tion and content) Owner Oral Surgeon Relationship Specialty Start Date End Date Christopher Sandoval MD [address] [place] [phone] PCP - General Family Medicine 07/20/17 Indra Rojas MD [address] [place] [address] Referring Provider Dermatology 07/20/17 Owner Oral Surgeon Relationship Specialty Start Date End Date Christopher Sandoval MD [address] [place] [phone] PCP - General Family Medicine 07/20/17 Indra Rojas MD [address] [place] [address] Referring Provider Dermatology 07/20/17 Owner Oral Surgeon Relationship Specialty Start Date End Date Christopher Sandoval MD [address] [facility] [address] [place] [address] PCP - General Family Medicine 10/18/19 Geovanna Benites MD [address] [address] Consulting Physician Cardiology 01/21/20 Owner Oral Surgeon Relationship Specialty Start Date End Date Christopher Sandoval MD [address] [place] [phone] PCP - General Family Medicine 07/20/17 Indra Rojas MD [address] [place] [address] Referring Provider Dermatology 07/20/17 Owner Oral Surgeon Relationship Specialty Start Date End Date Christopher Sandoval MD [address] [place] [phone] PCP - General Family Medicine 07/20/17 Indra Rojas MD [address] [place] [address] Referring Provider Dermatology 07/20/17 Owner Oral Surgeon Relationship Specialty Start Date End Date Christopher Sandoval MD [address] [place] [address] PCP - General Family Practice 07/08/15 Owner Oral Surgeon Relationship Specialty Start Date End Date Christopher Sandoval MD [address] [place] [address] PCP - General Family Practice 07/08/15 Owner Oral Surgeon Relationship Specialty [place] [address] [place] [address] PCP - General Family Practice 07/08/15 Owner Oral Surgeon Relationship Specialty Start Date End Date Christopher Sandoval MD [address] [place] [address] PCP - General Family Practice 07/08/15 Owner Oral Surgeon Relationship Specialty [place] [address] [place] [address] PCP - General Family Practice 07/08/15 Owner Oral Surgeon Relationship Specialty [place] [address] [place] [phone] PCP - General Family Medicine 07/20/17 Indra Rojas MD [address] [place] [address] [address] Referring Provider Dermatology 07/20/17 Owner Oral Surgeon Relationship Specialty [place] [address] [place] [address] PCP - General Family Medicine 10/18/19 Geovanna Benites MD [address] [place] [address] [phone] Consulting Physician Cardiology 01/21/20 Owner Oral Surgeon Relationship Specialty [place] [address] [place] [address] [place] [address] [phone] PCP - General Family Medicine 10/18/19 Geovanna Benites MD [address] [place] [address] [phone] Consulting Physician Cardiology 01/21/20 Owner Oral Surgeon Relationship Specialty Start Date End Date Christopher Sandoval MD [address] [place] [address], [place] [address] PCP - General Family Practice 07/08/15 Owner Oral Surgeon Relationship Specialty Start Date End Date Christopher Sandoval MD [address] [place] [address] PCP - General Family Practice 07/08/15 Owner Oral Surgeon Relationship Specialty Start Date End Date Christopher Sandoval MD [address] [place] [address] PCP - General Family Practice 07/08/15 Owner Oral Surgeon Relationship Specialty [place] [address] [place] [address] PCP - General Family Practice 07/08/15 Owner Oral Surgeon Relationship Specialty Start Date End Date Christopher Sandoval MD [address] [place] [address] PCP - General Family Practice 07/08/15 Owner Oral Surgeon Relationship Specialty Start Date End Date Christopher Sandoval MD [facility] [place] [address] PCP - General Family Practice 07/08/15 Owner Oral Surgeon Relationship Specialty Start Date End Date Christopher Sandoval MD [address] [facility] [address] [place] [address] PCP - General Family Medicine 10/18/19 Geovanna Benites MD [address] [address] Consulting Physician Cardiology 01/21/20 Owner Oral Surgeon Relationship Specialty Start Date End Date Christopher Sandoval MD [address] [place] [address] PCP - General Family Medicine 07/20/17 Indra Rojas MD [address] [place] [address] [address] Referring Provider Dermatology 07/20/17 Owner Oral Surgeon Relationship Specialty Start Date End Date Christopher Sandoval MD [address] [place] [address] PCP - General Family Practice 07/08/15 Owner Oral Surgeon Relationship Specialty [place] [address] [place] [address] PCP - General Family Practice 07/08/15 Owner Oral Surgeon Relationship Specialty Start Date End Date Christopher Sandoval MD [address] [place] [address] PCP - General Family Practice 07/08/15 Owner Oral Surgeon Relationship Specialty [place] [address] [place] [address] PCP - General Family Practice 07/08/15 Owner Oral Surgeon Relationship Specialty Start Date End Date Christopher Sandoval MD [address] [facility] [address] [place] [address] PCP - General Family Medicine 10/18/19 Geovanna Benites MD [address] [place] [address] Consulting Physician Cardiology 01/21/20 Owner Oral Surgeon Relationship Specialty Start Date End Date Christopher Sandoval MD [address] [place] [address] PCP - General Family Medicine 07/08/15 Owner Oral Surgeon Relationship Specialty [place] [address] [place] [address] PCP - General Family Medicine 07/08/15 Owner Oral Surgeon Relationship Specialty Start Date End Date Christopher Sandoval MD [address] [place] [address] PCP - General Family Medicine 07/08/15 Owner Oral Surgeon Relationship Specialty Start Date End Date Christopher Sandoval MD [address] [place] [address] PCP - General Family Medicine 07/08/15 Owner Oral Surgeon Relationship Specialty Start Date End Date Christopher Sandoval MD [address] [facility] [address] [place] [address] PCP - General Family Medicine 10/18/19 Geovanna Benites MD [address] [place] [address] Consulting Physician Cardiology 01/21/20 Owner Oral Surgeon Relationship Specialty Start Date End Date Christopher Sandoval MD [address] [place] [address] PCP - General Family Medicine 07/08/15 Owner Oral Surgeon Relationship Specialty Start Date End Date Christopher Sandoval MD [address] [place] [address] PCP - General Family Medicine 07/08/15 Owner Oral Surgeon Relationship Specialty Start Date End Date Christopher Sandoval MD [address] [place] [address] PCP - General Family Medicine 07/08/15 Owner Oral Surgeon Relationship Specialty [place] [address] [place] [address] PCP - General Family Medicine 10/18/19 Geovanna Benites MD [address] [place] [address] Consulting Physician Cardiology 01/21/20 Owner Oral Surgeon Relationship Specialty Start Date End Date Christopher Sandoval MD [address] [place] [address] PCP - General Family Medicine 10/18/19 Geovanna Benites MD [address] [place] [phone] Consulting Physician Cardiology 01/21/20 Owner Oral Surgeon Relationship Specialty Start Date End Date Christopher Sandoval MD [address] [place] [address] [phone] PCP - General Family Medicine 10/18/19 Geovanna Benites MD [address] [place] [address] [phone] Consulting Physician Cardiology 01/21/20 Owner Oral Surgeon Relationship Specialty Start Date End Date Christopher Sandoval MD [address] [place] [phone] PCP - General Family Medicine 07/20/17 Indra Rojas MD [address] [place] [address] [phone] Referring Provider Dermatology 07/20/17 Owner Oral Surgeon Relationship Specialty [place] [address] [place] [address] [phone] PCP - General Family Medicine 07/20/17 Indra Rojas MD [address] [place] [address] Referring Provider Dermatology 07/20/17 Owner Oral Surgeon Relationship Specialty Start Date End Date Christopher Sandoval MD [address] [place], [place] [phone] PCP - General Family Medicine 07/08/15 Owner Oral Surgeon Relationship Specialty Start Date End Date Christopher Sandoval MD [address] [place] [address] [phone] PCP - General Family Medicine 10/18/19 Geovanna Benites MD [address] [place] [address] [phone] Consulting Physician Cardiology 01/21/20 Owner Oral Surgeon Relationship Specialty [place] [address] [place] [address] [phone] PCP - General Family Medicine 07/20/17 Indra Rojas MD [address] [place] [address] [phone] Referring Provider Dermatology 07/20/17 Owner Oral Surgeon Relationship Specialty Start Date End Date Christopher Sandoval MD [address] [place] [address] PCP - General Family Medicine 07/08/15 Owner Oral Surgeon Relationship Specialty Start Date End Date Christopher Sandoval MD [address] [place] [address] PCP - General Family Medicine 07/08/15 Owner Oral Surgeon Relationship Specialty Start Date End Date Christopher Sandoval MD [address] [place] [address], [place] [address] PCP - General Family Medicine 10/18/19 Geovanna Benites MD [address] [place] [phone] Consulting Physician Cardiology 01/21/20 Owner Oral Surgeon Relationship Specialty Start Date End Date Christopher Sandoval MD [address] [place] [phone] PCP - General Family Medicine 10/18/19 Geovanna Benites MD [address] [place] [address] [phone] Consulting Physician Cardiology 01/21/20 Owner Oral Surgeon Relationship Specialty Start Date End Date Christopher Sandoval MD [address] [place] [address] [phone] PCP - General Family Medicine 10/18/19 Geovanna Benites MD [address] [place] [address] [phone] Consulting Physician Cardiology 01/21/20 Owner Oral Surgeon Relationship Specialty Start Date End Date Christopher Sandoval MD [address] [place] [address] PCP - General Family Medicine 07/08/15 Owner Oral Surgeon Relationship Specialty Start Date End Date Christopher Sandoval MD [address] [place] [address] PCP - General Family Medicine 07/08/15 Owner Oral Surgeon Relationship Specialty Start Date End Date Christopher Sandoval MD [address] [place] [phone] PCP - General Family Medicine 07/20/17 Indra Rojas MD [address] [place] [phone] Referring Provider Dermatology 07/20/17 Owner Oral Surgeon Relationship Specialty Start Date End Date Christopher Sandoval MD [address] [place] [phone] PCP - General Family Medicine 07/20/17 Indra Rojas MD [address] [place] [address] [phone] Referring Provider Dermatology 07/20/17 Source Comments (unrecognize d section and content) In the event this informatio n is protected by the Federal Confidentiality of Alcohol and Drug Abuse Patient Records regulations: The Federal rules restrict any use of the information to criminally investigate or prosecute any alcohol or drug abuse patient.[facility] the event this information is protected by the Federal Confidentiality of Alcohol and Drug Abuse Patient Records regulations: The Federal rules restrict any use of the information to criminally investigate or prosecute any alcohol or drug abuse patient.[facility]In the event this information is protected by the Federal Confidentiality of Alcohol and Drug Abuse Patient Records regulations: The Federal rules restrict any use of the information to criminally investigate or prosecute any alcohol or drug abuse patient.[facility]In the event this information is protected by the Federal Confidentiality of Alcohol and Drug Abuse Patient Records regulations: The Federal rules restrict any use of the information to criminally investigate or prosecute any alcohol or drug abuse patient.[facility]In the event this information is protected by the Federal Confidentiality of Alcohol and Drug Abuse Patient Records regulations: The Federal rules restrict any use of the information to criminally investigate or prosecute any alcohol or drug abuse patient.[facility]In the event this information is protected by the Federal Confidentiality of Alcohol and Drug Abuse Patient Records regulations: The Federal rules restrict any use of the information to criminally investigate or prosecute any alcohol or drug abuse patient.[facility]In the event this information is protected by the Federal Confidentiality of Alcohol and Drug Abuse Patient Records regulations: The Federal rules restrict any use of the information to criminally investigate or prosecute any alcohol or drug abuse patient.[facility]In the event this information is protected by the Federal Confidentiality of Alcohol and Drug Abuse Patient Records regulations: The Federal rules restrict any use of the information to criminally investigate or prosecute any alcohol or drug abuse patient.[facility]In the event this information is protected by the Federal Confidentiality of Alcohol and Drug Abuse Patient Records regulations: The Federal rules restrict any use of the information to criminally investigate or prosecute any alcohol or drug abuse patient.[facility]In the event this information is protected by the Federal Confidentiality of Alcohol and Drug Abuse Patient Records regulations: The Federal rules restrict any use of the information to criminally investigate or prosecute any alcohol or drug abuse patient.[facility] HospitalIn the event this information is protected by the Federal Confidentiality of Alcohol and Drug Abuse Patient Records regulations: The Federal rules restrict any use of the information to criminally investigate or prosecute any alcohol or drug abuse patient.[facility]In the event this information is protected by the Federal Confidentiality of Alcohol and Drug Abuse Patient Records regulations: The Federal rules restrict any use of the information to criminally investigate or prosecute any alcohol or drug abuse patient.[facility] HospitalIn the event this information is protected by the Federal Confidentiality of Alcohol and Drug Abuse Patient Records regulations: The Federal rules restrict any use of the information to criminally investigate or prosecute any alcohol or drug abuse patient.[facility] HospitalIn the event this information is protected by the Federal Confidentiality of Alcohol and Drug Abuse Patient Records regulations: The Federal rules restrict any use of the information to criminally investigate or prosecute any alcohol or drug abuse patient.[facility]In the event this information is protected by the Federal Confidentiality of Alcohol and Drug Abuse Patient Records regulations: The Federal rules restrict any use of the information to criminally investigate or prosecute any alcohol or drug abuse patient.[facility] HospitalIn the event this information is protected by the Federal Confidentiality of Alcohol and Drug Abuse Patient Records regulations: The Federal rules restrict any use of the information to criminally investigate or prosecute any alcohol or drug abuse patient.[facility] HospitalIn the event this information is protected by the Federal Confidentiality of Alcohol and Drug Abuse Patient Records regulations: The Federal rules restrict any use of the information to criminally investigate or prosecute any alcohol or drug abuse patient.[facility] HospitalIn the event this information is protected by the Federal Confidentiality of Alcohol and Drug Abuse Patient Records regulations: The Federal rules restrict any use of the information to criminally investigate or prosecute any alcohol or drug abuse patient.[facility] HospitalIn the event this information is protected by the Federal Confidentiality of Alcohol and Drug Abuse Patient Records regulations: The Federal rules restrict any use of the information to criminally investigate or prosecute any alcohol or drug abuse patient.[facility] HospitalIn the event this information is protected by the Federal Confidentiality of Alcohol and Drug Abuse Patient Records regulations: The Federal rules restrict any use of the information to criminally investigate or prosecute any alcohol or drug abuse patient.[facility] HospitalIn the event this information is protected by the Federal Confidentiality of Alcohol and Drug Abuse Patient Records regulations: The Federal rules restrict any use of the information to criminally investigate or prosecute any alcohol or drug abuse patient.[facility] HospitalIn the event this information is protected by the Federal Confidentiality of Alcohol and Drug Abuse Patient Records regulations: The Federal rules restrict any use of the information to criminally investigate or prosecute any alcohol or drug abuse patient.[facility] HospitalIn the event this information is protected by the Federal Confidentiality of Alcohol and Drug Abuse Patient Records regulations: The Federal rules restrict any use of the information to criminally investigate or prosecute any alcohol or drug abuse patient.[facility] HospitalIn the event this information is protected by the Federal Confidentiality of Alcohol and Drug Abuse Patient Records regulations: The Federal rules restrict any use of the information to criminally investigate or prosecute any alcohol or drug abuse patient.[facility] HospitalIn the event this information is protected by the Federal Confidentiality of Alcohol and Drug Abuse Patient Records regulations: The Federal rules restrict any use of the information to criminally investigate or prosecute any alcohol or drug abuse patient.[facility]In the event this information is protected by the Federal Confidentiality of Alcohol and Drug Abuse Patient Records regulations: The Federal rules restrict any use of the information to criminally investigate or prosecute any alcohol or drug abuse patient.[facility] HospitalIn the event this information is protected by the Federal Confidentiality of Alcohol and Drug Abuse Patient Records regulations: The Federal rules restrict any use of the information to criminally investigate or prosecute any alcohol or drug abuse patient.[facility] HospitalIn the event this information is protected by the Federal Confidentiality of Alcohol and Drug Abuse Patient Records regulations: The Federal rules restrict any use of the information to criminally investigate or prosecute any alcohol or drug abuse patient.[facility] HospitalIn the event this information is protected by the Federal Confidentiality of Alcohol and Drug Abuse Patient Records regulations: The Federal rules restrict any use of the information to criminally investigate or prosecute any alcohol or drug abuse patient.[facility] HospitalIn the event this information is protected by the Federal Confidentiality of Alcohol and Drug Abuse Patient Records regulations: The Federal rules restrict any use of the information to criminally investigate or prosecute any alcohol or drug abuse patient.[facility] HospitalIn the event this information is protected by the Federal Confidentiality of Alcohol and Drug Abuse Patient Records regulations: The Federal rules restrict any use of the information to criminally investigate or prosecute any alcohol or drug abuse patient.[facility] HospitalIn the event this information is protected by the Federal Confidentiality of Alcohol and Drug Abuse Patient Records regulations: The Federal rules restrict any use of the information to criminally investigate or prosecute any alcohol or drug abuse patient.[facility] HospitalIn the event this information is protected by the Federal Confidentiality of Alcohol and Drug Abuse Patient Records regulations: The Federal rules restrict any use of the information to criminally investigate or prosecute any alcohol or drug abuse patient.[facility] HospitalIn the event this information is protected by the Federal Confidentiality of Alcohol and Drug Abuse Patient Records regulations: The Federal rules restrict any use of the information to criminally investigate or prosecute any alcohol or drug abuse patient.[facility] HospitalIn the event this information is protected by the Federal Confidentiality of Alcohol and Drug Abuse Patient Records regulations: The Federal rules restrict any use of the information to criminally investigate or prosecute any alcohol or drug abuse patient.[facility] HospitalIn the event this information is protected by the Federal Confidentiality of Alcohol and Drug Abuse Patient Records regulations: The Federal rules restrict any use of the information to criminally investigate or prosecute any alcohol or drug abuse patient.[facility] HospitalIn the event this information is protected by the Federal Confidentiality of Alcohol and Drug Abuse Patient Records regulations: The Federal rules restrict any use of the information to criminally investigate or prosecute any alcohol or drug abuse patient.[facility] HospitalIn the event this information is protected by the Federal Confidentiality of Alcohol and Drug Abuse Patient Records regulations: The Federal rules restrict any use of the information to criminally investigate or prosecute any alcohol or drug abuse patient.[facility] HospitalIn the event this information is protected by the Federal Confidentiality of Alcohol and Drug Abuse Patient Records regulations: The Federal rules restrict any use of the information to criminally investigate or prosecute any alcohol or drug abuse patient.[facility] HospitalIn the event this information is protected by the Federal Confidentiality of Alcohol and Drug Abuse Patient Records regulations: The Federal rules restrict any use of the information to criminally investigate or prosecute any alcohol or drug abuse patient.[facility] HospitalIn the event this information is protected by the Federal Confidentiality of Alcohol and Drug Abuse Patient Records regulations: The Federal rules restrict any use of the information to criminally investigate or prosecute any alcohol or drug abuse patient.[facility] HospitalIn the event this information is protected by the Federal Confidentiality of Alcohol and Drug Abuse Patient Records regulations: The Federal rules restrict any use of the information to criminally investigate or prosecute any alcohol or drug abuse patient.[facility] HospitalIn the event this information is protected by the Federal Confidentiality of Alcohol and Drug Abuse Patient Records regulations: The Federal rules restrict any use of the information to criminally investigate or prosecute any alcohol or drug abuse patient.[facility] FOR RECORDS PERTAINING TO PATIENTS WHO ARE OR HAVE BEEN ENROLLED IN A CHEMICAL DEPENDENCY/SUBSTANCEABUSE PROGRAM, SOME INFORMATION MAY BE OMITTED. This clinical summary was aggregated from multiple sources. Caution should be exercised in using it in the provision of clinical care. This summary normalizes information from multiple sources, and as a consequence, information in this document may materially change the coding, format and clinical context of patient data. In addition, data may be omitted in some cases. CLINICAL DECISIONS SHOULD BE BASED ON THE PRIMARY CLINICAL RECORDS. [facility] [employer] [facility]. provides no warranty or guarantee of the accuracy or completeness of information in this document.
[2023-10-13 18:30] LABS: Anion Gap 7 (5-15); BUN 65 mg/dL (7-18); BUN/Creat Ratio 35.9 RATIO (10-20); Calcium,Total 9.5 mg/dL (8.5-10.1); Chloride 101 mmol/L (98-107); Creatinine, Serum 1.81 mg/dL (0.55-1.02); EST Glomerular Filtration Rate 28 mL/min (>60); Est Glom Filt Rate - Afr Amer 34 mL/min (>60); Estimated Creatinine Clearance 19.88 ml/min; Glucose 105 mg/dL (74-106); Potassium 4.1 mmol/L (3.5-5.1); Sodium Level 135 mmol/L (136-145)
[2023-10-13] MEDS: Doxycycline 100 MG CAPSULE PO (19:24)
[2023-10-13 19:29] VITALS: BP 134/76; PULSE 66; RESP 18; TEMP 36.4; O2SAT 99
== END 2023-10-13 19:31 | disposition home or self-care (01) ==
PROVIDERS: Emergency Provider Emergency Medicine; PCP Family Medicine; Visit Provider Emergency Medicine
DX: L03.114 Cellulitis of left upper limb (principal); I50.9 Heart failure, unspecified; I11.0 Hypertensive heart disease with heart failure; S61.211A Laceration without foreign body of left index finger without damage to nail, initial encounter; X58.XXXA Exposure to other specified factors, initial encounter
CPT/HCPCS: 80048; 85025; 87040; 99283; J7030; A4216

== ENCOUNTER 2025-01-12 08:42 | Emergency (ER) | payer MEDICARE, SELFPAY ==
[2025-01-12 08:42] VITALS: BP 139/46; PULSE 78; RESP 16; TEMP 36.6; O2SAT 99; BMI 26.7
[2025-01-12 09:09] VITALS: BP 133/50; PULSE 78; RESP 20; TEMP 36.6; O2SAT 98
--- NOTE | 2025-01-12 09:40 | RAD_ITS ---
PROCEDURE: CHEST PA AND LATERAL 01/12/2025 REASON FOR EXAM: COUGH TECHNIQUE: Frontal and lateral views of the chest. COMPARISON: None FINDINGS: Hardware: None Heart: Mild cardiomegaly. Mediastinum: The mediastinal contour is unremarkable. Lungs: Focal consolidation. No pneumothorax. No pleural effusion. Bones: Degenerative changes are identified within the thoracic spine. RAD/Chest PA and Lateral IMPRESSION: NO ACUTE FINDINGS. Reading Location: [facility]
--- NOTE | 2025-01-12 10:09 | EX.ED.DYSGE1 ---
HPI History of Present Illness Chief Complaint: Chest Other Informant: patient and spouse/S.O. Narrative Narrative: Increasing chest congestion for the past 5 days. Initially saw express care put on antibiotics for 5 days. Today increasing congestion felt little short of breath. History of asthma. Denies wheeze. Has not coughed anything up. No fever chills or sweats. No vomiting or diarrhea. [facility] Medical History Gout Cellulitis of right leg Leg wound, right Chronic venous insufficiency History of myocardial infarction Osteoporosis History of CVA (cerebrovascular accident) History of gastrointestinal bleeding History of endometrial cancer History of deep vein thrombosis Kidney disease Kidney stones GI bleed DVT (deep venous thrombosis) Seizures Stroke/cerebrovascular accident Venous ulcer of right lower extremity with varicose veins PVD (peripheral vascular disease) Bilateral lower extremity edema Congestive heart failure Endometrial cancer Broken heart syndrome History of breast cancer Hypertension Home Medications ?Medication ?Instructions ?Recorded ?Last Taken ?Type albuterol sulfate 90 mcg/actuation 2 puff inhalation Q4H PRN PRN 03/20/15 11/30/20 History aerosol inhaler Shortness Of Breath aspirin 81 mg chewable tablet 81 mg PO QHS heart health/stroke 03/20/15 12/01/20 History montelukast 10 mg tablet 10 mg PO QHS asthma 03/20/15 12/01/20 History spironolactone 25 mg tablet 25 mg PO DAILY water pill 03/20/15 12/01/20 History torsemide 20 mg tablet 10 mg PO DAILY water pill 03/20/15 12/01/20 History omeprazole 40 mg capsule,delayed 40 mg PO PRN PRN stomach 06/14/19 12/02/20 History release losartan 25 mg tablet 12.5 - 25 mg PO DAILY BP 12/02/20 12/01/20 History budesonide-formoterol HFA 160 2 puff inhalation BID breathing 02/25/21 Unknown History mcg-4.5 mcg/actuation aerosol inhaler nitrofurantoin macrocrystal 100 mg 100 mg PO .PRN #20 caps 08/20/21 Unknown Rx capsule (Macrodantin) clopidogrel 75 mg tablet 1 tab PO DAILY 04/09/22 Unknown History febuxostat 40 mg tablet 1 tab PO DAILY 04/09/22 Unknown History albuterol sulfate 2.5 mg/3 mL 2.5 mg (3 mL) inhalation Q4H PRN 04/18/22 Unknown Rx (0.083 %) solution for nebulization #25 vials cephalexin 500 mg capsule 500 mg PO TID #21 CAPSULES 05/24/22 Unknown Rx ondansetron 4 mg disintegrating 4 mg PO Q8H PRN PRN Nausea #10 tabs 06/18/23 Unknown Rx tablet doxycycline monohydrate 100 mg 100 mg PO BID #20 CAPSULES 10/13/23 Unknown Rx capsule prednisone 20 mg tablet 40 mg (2 x 20 mg) PO DAILY #10 tabs 01/12/25 Unknown Rx Allergy/AdvReac Type Severity Reaction Status Date / Time diazepam (From Valium) Allergy seizures Verified 01/12/25 08:42 diphenhydramine HCl (From Allergy difficulty Verified 01/12/25 08:42 Benadryl) breathing esomeprazole magnesium (From Allergy chest pain Verified 01/12/25 08:42 Nexium) NSAIDS (Non-Steroidal Allergy Other Verified 01/12/25 08:42 Anti-Inflamma pegloticase (From Krystexxa) Allergy Other Verified 01/12/25 08:42 Penicillins Allergy Rash Verified 01/12/25 08:42 pentazocine lactate (From Allergy quit Verified 01/12/25 08:42 Talwin) breathing Sulfa (Sulfonamide Allergy Rash Verified 01/12/25 08:42 Antibiotics) sulfur dioxide Allergy massive Verified 01/12/25 08:42 headaches Family History Mother Cancer stomach throat Thyroid disorder Father Heart disease Surgical History History of hysterectomy H/O dilation and curettage History of cholecystectomy H/O bilateral oophorectomy History of colon surgery H/O bilateral mastectomy Social History Smoking Status: Never smoker alcohol intake: never substance use type: does not use caffeine: Yes what type of physical activity do you participate in: walking and bicycling frequency: daily seatbelt use: always do you feel safe at home: Yes additional social history: Russell- Both are retired ROS ROS ED Constitutional Constitutional ED: Denies chills, fever(s) or sweats ENT ENT ED: Denies sore throat Cardiovascular Cardiovascular: Denies chest pain, leg edema, palpitations or racing heartbeat Respiratory/Chest Respiratory/Chest: Reports cough and dyspnea; Denies dyspnea on exertion Gastrointestinal Gastrointestinal: Denies abdominal pain, diarrhea, nausea or vomiting Genitourinary Genitourinary ED: Denies dysuria, hematuria or urinary frequency Musculoskeletal Musculoskeletal: Denies back pain, extremity pain or neck pain Integumentary Denies rash or wounds Neurologic Neurologic: Denies headache(s), paresthesias or weakness EXAM Physical Exam Const Vital Signs: 01/12/25 08:42 01/12/25 09:04 01/12/25 09:09 Temperature 97.9 F 97.9 F Temperature Source Oral Oral Pulse Rate 78 78 Respiratory Rate 16 20 H Respiratory Effort Normal Non-Labored Respiratory Pattern Normal Blood Pressure 139/46 H 133/50 H Blood Pressure Mean 77 77 Pulse Ox 99 98 Oxygen Delivery Method Room Air Room Air 01/12/25 10:28 Temperature 98.3 F Temperature Source Pulse Rate 67 Respiratory Rate 16 Respiratory Effort Respiratory Pattern Blood Pressure 126/49 H Blood Pressure Mean 74 Pulse Ox 97 Oxygen Delivery Method Positive well nourished and well developed General Appearance ED: well developed and NAD HEENT Reports moist mucous membranes normocephalic and atraumatic Eyes General Eye ED: Yes normal appearance of both eyes Neck full ROM Chest Wall Chest: Negative for tenderness Resp normal respiratory effort and normal air movement Effort and Inspection: symmetric chest movement; Negative for respiratory distress Cardio regular rate, regular rhythm and no murmurs Peripheral Pulses: pulses 2+ throughout GI normal to inspection, nondistended, normoactive bowel sounds and non-tender Palpation: Negative for guarding or rebound tenderness present Extremity normal to inspection General Extremety ED: Negative for edema or tenderness General Extremity: Negative for edema Neuro oriented x3 and no sensory deficits noted Sensorium / Orientation: awake and alert Skin no rashes or lesions noted and no wounds MDM MDM MDM Narrative Medical decision making narrative: Interventions / MDM: Differential diagnosis: Viral upper restaurant infection, history of asthma Diagnosis considered but do not suspect: Pneumonia however x-ray negative My EKG interpretation: N/A Imaging independently reviewed and interpreted by myself: 2 view chest x-ray: No acute process. External documents reviewed: N/A Test considered but not ordered:N/A ED course: Vital stable nontoxic no distress. Increasing cough over 5 days. Two-view chest x-ray ordered. Chest x-ray negative. Patient reassured. Discussed likely viral syndrome therefore her antibiotic did not help. She is currently not wheezing however she is at risk for increasing asthma flare with increasing symptoms. I wrote her for prednisone to take if she starts wheezing she has inhaler at home. Outpatient follow-up with her doctor. All questions were answered. Re-evaluation: stable Disposition discussed with patient/family/significant other: Patient Case discussed with consulting clinician: N/A This note was generated with [employer] dictation software. It may contain incorrect words, spelling, and punctuation that were not noted in checking the note before signing. Radiography Diagnostic Testing: Clinical Impression(s) from Imaging Studies Chest X-Ray 01/12/25 09:40 IMPRESSION: NO ACUTE FINDINGS. [facility] Discharge Plan Triage Chief Complaint: Chest Other ED Provider: Alen Leyva Dx/Rx/DC Orders Clinical Impression: Viral URI with cough, History of asthma Instructions: ED URI, Viral, No Abx (Adult) Prescriptions: New prednisone 20 mg tablet 40 mg PO DAILY Qty: 10 0RF No Action torsemide 20 MG tablet 10 mg PO DAILY Rx Instructions: 1-2 depending on leg edema spironolactone 25 MG tablet 25 mg PO DAILY aspirin 81 MG tablet,chewable 81 mg PO QHS montelukast 10 MG tablet 10 mg PO QHS Patient Comments: asthma albuterol sulfate 1 INHALER inhaler 2 puff INHALATION Q4H PRN PRN (Reason: Shortness Of Breath) omeprazole 40 MG capsule,delayed release(DR/EC) 40 mg PO PRN PRN (Reason: stomach) budesonide-formoterol 160-4.5 mcg/actuation HFA aerosol inhaler 2 puff inhalation BID losartan 25 MG tablet 12.5 - 25 mg PO DAILY clopidogrel 75 mg tablet 1 tab PO DAILY febuxostat 40 mg tablet 1 tab PO DAILY albuterol sulfate 2.5 mg /3 mL (0.083 %) solution for nebulization 2.5 mg inhalation Q4H PRN Qty: 25 0RF Rx Instructions: Use q4 hours and PRN for wheezing cephalexin [cephalexin] 500 mg capsule 500 mg PO TID Qty: 21 0RF ondansetron [ondansetron] 4 mg tablet,disintegrating 4 mg PO Q8H PRN PRN (Reason: Nausea) Qty: 10 0RF doxycycline monohydrate 100 mg capsule 100 mg PO BID Qty: 20 0RF nitrofurantoin macrocrystal [Macrodantin] 100 mg capsule 100 mg PO .PRN Qty: 20 3RF Rx Instructions: take one tablet after intercourse and one tablet the next morning Primary Care Provider: Julius Sandoval Referrals: Julius Sandoval MD [Primary Care Provider] - 1-2 Weeks Activity Restrictions/Additional Instructions: X-ray negative. Adjunct therapies to help with your cough as discussed. If you start wheezing take prednisone as prescribed. Use your inhaler as needed. Print Language: St Helenian Disposition Disposition: Home, Self Care Discharge Date/Time: 01/12/25 10:30
[2025-01-12 10:28] VITALS: BP 126/49; PULSE 67; RESP 16; TEMP 36.8; O2SAT 97
== END 2025-01-12 10:30 | disposition home or self-care (01) ==
PROVIDERS: Emergency Provider Emergency Medicine; PCP Family Medicine; Visit Provider Emergency Medicine
DX: J06.9 Acute upper respiratory infection, unspecified (principal); I50.9 Heart failure, unspecified; I11.0 Hypertensive heart disease with heart failure; R05.9 Cough, unspecified; J45.909 Unspecified asthma, uncomplicated
CPT/HCPCS: 71046; 99282

== ENCOUNTER 2025-02-01 21:48 | Emergency (ER) | payer MEDICARE, SELFPAY ==
[2025-02-01 21:49] VITALS: BP 140/67; PULSE 91; RESP 18; TEMP 36.2; O2SAT 98; BMI 26.6
--- NOTE | 2025-02-01 22:06 | EX.ED.DYSGE1 ---
HPI History of Present Illness Chief Complaint: Edema Informant: patient Narrative Narrative: 84-year-old female presenting for edema in the legs worse on the left than the right that is increased for the past 10 days. She does have some chronic swelling in both of her legs. She states her left foot has been hurting chronically from plantar fasciitis, but since the swelling has been there she has had a little bit more pain in the lateral/peroneal aspect of the foot. She denies any injuries. She does not have any lower leg/calf pain. She has a history of couple DVTs in the right leg remotely, she is no longer anticoagulated she does not have a clotting disorder that she knows of, she denies any recent hospitalization, immobilization/long travel, surgery, and states she has been walking and getting around without difficulty recently. She does not have any active cancer she is currently treating, she does have a history of remote cancers that were cured. She states in the past week or so, she has been urinating less despite taking her diuretic and not eating salt or taking an extra fluids than usual. She denies any dysuria or hematuria, and states that because she was urinating last she thought maybe it was a bladder infection. She states as result of this earlier in the week she went to urgent care but she was not able to urinate for them to give them a sample so she states she went to a local restaurant and drank a quart of iced tea and still could not urinate to never give a urine sample. She think she had gained 3 pounds in the past week. Now when I ask her, she states she does not think she has a bladder infection, but states she is still urinating less than usual. She denies any orthopnea or dyspnea with exertion, has a history of chronic congestive heart failure which is why she watches her fluid intake and salt intake. No chest pain or abdominal pain. No bleeding from anywhere including no melena. She takes clopidogrel but no anticoagulant. [facility] Medical History Gout Cellulitis of right leg Leg wound, right Chronic venous insufficiency History of myocardial infarction Osteoporosis History of CVA (cerebrovascular accident) History of gastrointestinal bleeding History of endometrial cancer History of deep vein thrombosis Kidney disease Kidney stones GI bleed DVT (deep venous thrombosis) Seizures Stroke/cerebrovascular accident Venous ulcer of right lower extremity with varicose veins PVD (peripheral vascular disease) Bilateral lower extremity edema Congestive heart failure Endometrial cancer Broken heart syndrome History of breast cancer Hypertension Home Medications ?Medication ?Instructions ?Recorded ?Last Taken ?Type albuterol sulfate 90 mcg/actuation 2 puff inhalation Q4H PRN PRN 03/20/15 11/30/20 History aerosol inhaler Shortness Of Breath aspirin 81 mg chewable tablet 81 mg PO QHS heart health/stroke 03/20/15 12/01/20 History montelukast 10 mg tablet 10 mg PO QHS asthma 03/20/15 12/01/20 History spironolactone 25 mg tablet 25 mg PO DAILY water pill 03/20/15 12/01/20 History torsemide 20 mg tablet 10 mg PO DAILY water pill 03/20/15 12/01/20 History omeprazole 40 mg capsule,delayed 40 mg PO PRN PRN stomach 06/14/19 12/02/20 History release losartan 25 mg tablet 12.5 - 25 mg PO DAILY BP 12/02/20 12/01/20 History budesonide-formoterol HFA 160 2 puff inhalation BID breathing 02/25/21 Unknown History mcg-4.5 mcg/actuation aerosol inhaler nitrofurantoin macrocrystal 100 mg 100 mg PO .PRN #20 caps 08/20/21 Unknown Rx capsule (Macrodantin) clopidogrel 75 mg tablet 1 tab PO DAILY 04/09/22 Unknown History febuxostat 40 mg tablet 1 tab PO DAILY 04/09/22 Unknown History albuterol sulfate 2.5 mg/3 mL 2.5 mg (3 mL) inhalation Q4H PRN 04/18/22 Unknown Rx (0.083 %) solution for nebulization #25 vials cephalexin 500 mg capsule 500 mg PO TID #21 CAPSULES 05/24/22 Unknown Rx ondansetron 4 mg disintegrating 4 mg PO Q8H PRN PRN Nausea #10 tabs 06/18/23 Unknown Rx tablet doxycycline monohydrate 100 mg 100 mg PO BID #20 CAPSULES 10/13/23 Unknown Rx capsule prednisone 20 mg tablet 40 mg (2 x 20 mg) PO DAILY #10 tabs 01/12/25 Unknown Rx Allergy/AdvReac Type Severity Reaction Status Date / Time diazepam (From Valium) Allergy seizures Verified 02/01/25 21:49 diphenhydramine HCl (From Allergy difficulty Verified 02/01/25 21:49 Benadryl) breathing esomeprazole magnesium (From Allergy chest pain Verified 02/01/25 21:49 Nexium) NSAIDS (Non-Steroidal Allergy Other Verified 02/01/25 21:49 Anti-Inflamma pegloticase (From Krystexxa) Allergy Other Verified 02/01/25 21:49 Penicillins Allergy Rash Verified 02/01/25 21:49 pentazocine lactate (From Allergy quit Verified 02/01/25 21:49 Talwin) breathing Sulfa (Sulfonamide Allergy Rash Verified 02/01/25 21:49 Antibiotics) sulfur dioxide Allergy massive Verified 02/01/25 21:49 headaches Family History Mother Cancer stomach throat Thyroid disorder Father Heart disease Surgical History History of hysterectomy H/O dilation and curettage History of cholecystectomy H/O bilateral oophorectomy History of colon surgery H/O bilateral mastectomy Social History Smoking Status: Never smoker alcohol intake: never substance use type: does not use caffeine: Yes what type of physical activity do you participate in: walking and bicycling frequency: daily seatbelt use: always do you feel safe at home: Yes additional social history: Kade Higgins are retired ROS ROS ED Constitutional Constitutional ED: Reports fatigue and weight gain; Denies chills, fever(s) or weakness Eyes Eyes: Denies change in vision or diplopia ENT ENT ED: Denies rhinorrhea or sore throat Cardiovascular Cardiovascular: Reports leg edema; Denies chest pain or palpitations Respiratory/Chest Respiratory/Chest: Denies cough or dyspnea Gastrointestinal Gastrointestinal: Denies abdominal pain, diarrhea, nausea or vomiting Genitourinary Genitourinary ED: Denies dysuria, hematuria or urinary frequency Musculoskeletal Musculoskeletal: Denies back pain or neck pain Integumentary Denies abscess or rash Neurologic Neurologic: Denies headache(s), paresthesias or weakness Psychiatric Psychiatric: Denies suicidal thoughts EXAM Physical Exam Const Vital Signs: 02/01/25 21:49 02/01/25 21:59 Temperature 97.1 F L Temperature Source Temporal Pulse Rate 91 Respiratory Rate 18 Respiratory Effort Normal Respiratory Pattern Normal Blood Pressure 140/67 H Blood Pressure Mean 91 Pulse Ox 98 Oxygen Delivery Method Room Air Positive well nourished and well developed General Appearance ED: well developed and NAD HEENT Reports moist mucous membranes normocephalic and atraumatic Eyes PERRL and EOMs intact bilaterally Neck full ROM and supple Resp normal respiratory effort and clear to auscultation bilaterally Cardio regular rate and regular rhythm GI non-tender and non-distended Auscultation: normoactive bowel sounds Palpation: soft Back/Spine no CVA tenderness General Back: other FROM Extremity normal to inspection General Extremety ED: Yes edema; Negative for pulses abnormal or tenderness General Extremity: edema bilateral lower extremity (Changes of chronic stasis dermatitis in both lower legs. There is edema in both legs, worse in the left to mid [place]. The foot is benign-appearing, there is no bony tenderness. Full range of motion of the knee and the ankle without difficulty. No blanching erythema/skin tenderness.); Negative for pulses abnormal Neuro oriented x3, CN's II-XII intact bilaterally, no sensory deficits noted and gait normal Neuro Narrative: Walks down the [place] with her cane without any difficulty. Sensorium / Orientation: awake and alert Motor Exam: strength 5/5 throughout Skin no rashes or lesions noted and no wounds MDM MDM MDM Narrative Medical decision making narrative: Patient presents Monday night when vascular ultrasound, nor anyone else from the ultrasound department, is here to perform a DVT study. She does have some asymmetric edema, but with decreased urination despite diuretic, and no risk factors for an acute DVT, my suspicion is that she does not have 1. I did obtain a D-dimer in addition to renal function and blood counts to assess for renal dysfunction, anemia, and to see if we are able to rule out a DVT with the labwork. Her D-dimer returned to 0.81, when corrected for age this is within normal limits and ruled out DVT without the need for an ultrasound. Her BUN/creatinine are chronically abnormal looking back at her old labs, the last set I have to compare it to her just over 1 year ago, and not remarkably changed although a little bit higher although she has been higher than this in the past, currently at 2.04, her last creatinine was 1.81 and she was 2.17 three months prior to that. She confirms she has a history of stage III chronic kidney disease. This also was in her records. She sees nephrology and cardiology both in [place]. Based on all of this my recommendation is that she consider compression stockings, and to that she states she is already using them she just took them off prior to coming here. I do not have an old echo to see her congestive heart failure severity. She has not been having increasing dyspnea. I recommend continuing to use her compression stockings and taking her medications as prescribed for now, until she follows up with cardiology and/or nephrology, again both of which she is established with. Her urine shows no signs of acute infection. She is reassured there. My suspicion is that based on this knowledge her asymmetric edema is due to asymmetric venous insufficiency. Stable for discharge and close outpatient follow-up after the weekend. She is comfortable with the plan. Lab Data Attestation: I reviewed the patient's lab results. Labs: Laboratory Results - last 24 hr 02/01/25 22:02 WBC 7.5 RBC 3.90 L Hgb 12.2 Hct 35.9 L MCV 92.1 MCH 31.3 MCHC 34.0 RDW Std Deviation 44.1 H RDW Coeff of Yariel 13.2 Plt Count 258 MPV 8.3 Immature Gran % (Auto) 0.300 Neut % (Auto) 71.4 H Lymph % (Auto) 17.9 L [place] % (Auto) 8.4 Eos % (Auto) 1.6 Baso % (Auto) 0.4 Absolute Neuts (auto) 5.4 Absolute Lymphs (auto) 1.35 Nucleated RBC % 0 D-Dimer Quant (PE/DVT) 0.81 H* Sodium 130 L Potassium 4.8 Chloride 93 L Carbon Dioxide 23.9 Anion Gap 13 BUN 56 H Creatinine 2.04 H Estim Creat Clear Calc 16.96 L Est GFR (MDRD) Non-Af 23 L BUN/Creatinine Ratio 27.5 H Glucose 103 H Calcium 9.4 Urine Color Straw Urine Clarity Clear Urine pH 6.0 Ur Specific [place] 1.010 Urine Protein 15 H Urine Glucose (UA) 250 H Urine Ketones Negative Urine Occult Blood 25 H Urine Nitrite Negative Urine Bilirubin Negative Urine Urobilinogen Normal Ur Leukocyte Esterase 25 H Urine RBC 0 SEEN Urine WBC 5-10 SEEN Ur Squamous Epith Cells 0-5 SEEN Urine Bacteria RARE Urine Mucus 0 SEEN Discharge Plan Triage Chief Complaint: Edema ED Provider: Martin Espitia Dx/Rx/DC Orders Clinical Impression: Asymmetric edema of both lower extremities, Stage III chronic kidney disease, Congestive heart failure, Decreased urine output Instructions: ED Peripheral Edema, Bilateral Prescriptions: No Action torsemide 20 MG tablet 10 mg PO DAILY Rx Instructions: 1-2 depending on leg edema spironolactone 25 MG tablet 25 mg PO DAILY aspirin 81 MG tablet,chewable 81 mg PO QHS montelukast 10 MG tablet 10 mg PO QHS Patient Comments: asthma albuterol sulfate 1 INHALER inhaler 2 puff INHALATION Q4H PRN PRN (Reason: Shortness Of Breath) omeprazole 40 MG capsule,delayed release(DR/EC) 40 mg PO PRN PRN (Reason: stomach) budesonide-formoterol 160-4.5 mcg/actuation HFA aerosol inhaler 2 puff inhalation BID losartan 25 MG tablet 12.5 - 25 mg PO DAILY clopidogrel 75 mg tablet 1 tab PO DAILY febuxostat 40 mg tablet 1 tab PO DAILY albuterol sulfate 2.5 mg /3 mL (0.083 %) solution for nebulization 2.5 mg inhalation Q4H PRN Qty: 25 0RF Rx Instructions: Use q4 hours and PRN for wheezing cephalexin [cephalexin] 500 mg capsule 500 mg PO TID Qty: 21 0RF ondansetron [ondansetron] 4 mg tablet,disintegrating 4 mg PO Q8H PRN PRN (Reason: Nausea) Qty: 10 0RF doxycycline monohydrate 100 mg capsule 100 mg PO BID Qty: 20 0RF prednisone 20 mg tablet 40 mg PO DAILY Qty: 10 0RF nitrofurantoin macrocrystal [Macrodantin] 100 mg capsule 100 mg PO .PRN Qty: 20 3RF Rx Instructions: take one tablet after intercourse and one tablet the next morning Primary Care Provider: Julius Sandoval Referrals: Your heart and kidney specialists [Other] - As soon as possible Print Language: Palauan
[2025-02-01 22:18] LABS: Mucous, Urine 0 SEEN /hpf (<or=2+); Red Blood Cells-Urine 0 SEEN /hpf (0-5)
[2025-02-01 22:20] LABS: Absolute Lymphocyte Count 1.35 X10^3/uL (0.83-4.51); Absolute Neutrophil Count 5.4 X10^3/uL (2.0-7.7); Basophil# 0.03 X10^3/uL; Basophil% 0.4 % (0-1); Color, Urine Straw (Yellow); Eosinophil# 0.12 X10^3/uL; Eosinophils% 1.6 % (0-5); Glucose, Dipstick 250 mg/dl (Normal); Hematocrit 35.9 % (37-47); Hemoglobin 12.2 g/dL (12.0-15.0); Ketone-Dipstick Negative (Negative); Leukocyte Esterase-Dipstick 25 /ul (Negative); Lymphocyte # 1.35 X10^3/ul (0.83-4.51); Lymphocyte % 17.9 % (19-41); Mean Corpuscular Hgb 31.3 pg (27.0-32.0); Mean Corpuscular Volume 92.1 fL (81-99); Mean Platelet Vol. 8.3 fl (6.2-12.0); Monocyte# 0.63 X10^3/uL; Monocyte% 8.4 % (0-10); NRBC Flagged by Analyzer 0 % (0-5); Neutrophil # 5.38 X10^3/uL (2.7-7.7); Neutrophil % 71.4 % (47-70); Nitrite-Dipstick Negative (Negative); Occult Blood-Urine 25 /ul (Negative); Platelet Count 258 K/mm3 (150-450); Protein-Dipstick 15 mg/dl (Negative); RBC Distribution Width CV 13.2 % (11.6-14.6); RBC Distribution Width SD 44.1 fl (35.1-43.9); Urine Bilirubin Dipstick Negative (Negative); Urine Clarity Clear (Clear); Urine Urobilinogen Normal (Normal); White Blood Count 7.5 K/mm3 (4.4-11.0)
[2025-02-01 22:34] LABS: D-Dimer Quantitative (DVT/PE) 0.81 FEU/ug/m (0.27-0.49)
[2025-02-01 22:35] LABS: Anion Gap 13 (5-15); BUN 56 mg/dL (4-19); BUN/Creat Ratio 27.5 RATIO (10-20); Calcium,Total 9.4 mg/dL (7.6-11.0); Carbon Dioxide 23.9 mmol/L (21.0-32.0); Chloride 93 mmol/L (98-108); Creatinine, Serum 2.04 mg/dL (0.70-1.20); EST Glomerular Filtration Rate 23 (>60); Estimated Creatinine Clearance 16.96 ml/min (50-250); Glucose 103 mg/dL (70-99); Potassium 4.8 mmol/L (3.3-5.1); Sodium Level 130 mmol/L (133-145)
[2025-02-01 22:38] LABS: Bacteria RARE /hpf (None Seen); Squamous Epithelial Cells - UA 0-5 SEEN /hpf (5-10); White Blood Cells 5-10 SEEN /hpf (0-5)
[2025-02-01 23:12] VITALS: BP 129/39; PULSE 76; RESP 18; TEMP 36.6; O2SAT 100
== END 2025-02-01 23:13 | disposition home or self-care (01) ==
PROVIDERS: Emergency Provider Emergency Medicine; PCP Family Medicine; Referring Provider Emergency Medicine; Visit Provider Emergency Medicine
DX: R60.0 Localized edema (principal); I50.9 Heart failure, unspecified; I11.0 Hypertensive heart disease with heart failure; N18.30 Chronic kidney disease, stage 3 unspecified; M72.2 Plantar fascial fibromatosis; I87.2 Venous insufficiency (chronic) (peripheral); Z79.02 Long term (current) use of antithrombotics/antiplatelets
CPT/HCPCS: 80048; 81001; 85025; 85379; 99282; A4216